=== PATIENT | male | born 1960 | race Caucasian/White ===

== ENCOUNTER 2018-02-13 09:16 | Inpatient (IN) | payer OTHER ==
--- NOTE | 2018-02-13 10:02 | CONSULT ---
Consult Consult Specialty:: General Surgery Referred by:: Tamika Reason for Consultation:: sigmoid colon mass and andominal pain - History of Present Illness Chief Complaint: I have colon mass and it hurts History of Present Illness: 57 yo male presenting to [facility] ER via private auto complaining of occasional lower left abdominal discomfort. Pt underwent an outpatient colonoscopy by Dr. Lundberg last Tuesday (08 Feb 2018), which was reportedly abnormal revealing a mass. Pt denies melena or hematochezia. He has normal bowel habits. his pain is rated 5/10, biopsy return consistent with malignant neoplasm. He is in today for evaluation. - History Source History Provided By: Patient, Medical Record Limitations to Obtaining History: No Limitations - Smoking History Smoking history: Never smoked Home Medications - Allergies Allergies/Adverse Reactions: Allergies Allergy/AdvReac Type Severity Reaction Status Date / Time No Known Allergies Allergy Verified 02/13/18 09:20 - Home Medications Home Medications: Ambulatory Orders Levothyroxine [Synthroid -] 100 mcg PO DAILY 02/13/18 Review of Systems - Review of Systems Constitutional: denies: Chills, Fever Eyes: denies: Blind Spots, Recent Change in Vision HENT: denies: Difficult Swallowing, Throat Pain Neck: denies: Decreased ROM, Tenderness Cardiovascular: denies: Chest Pain, Palpitations Respiratory: denies: Cough, SOB Gastrointestinal: denies: Abdominal Pain, Constipation, Diarrhea Genitourinary: denies: Discharge, Dysuria Breasts: reports: No Symptoms Reported. denies: Pain Musculoskeletal: denies: Back Pain, Crepitus Integumentary: denies: Erythema, Lump, Rash Neurological: denies: Syncope, Tremors Endocrine: denies: Unexplained Weight Gain, Unexplained Weight Loss Hematology/Lymphatic: denies: Easily Bruised, Excessive Bleeding Psychiatric: denies: Anxiety, Depression Physical Exam Vital Signs: Vital Signs Temperature 98.8 F 02/13/18 09:21 Pulse Rate 61 02/13/18 09:21 Respiratory Rate 18 02/13/18 09:21 Blood Pressure 152/83 02/13/18 09:21 O2 Sat by Pulse Oximetry (%) 98 02/13/18 09:21 Vital Signs Period Temp Pulse Resp BP Sys/Cavanaugh Pulse Ox Last 24 Hr 97.9 F-99 F 60-88 16-20 105-135/56-92 95-100 Constitutional: Yes: Well Nourished, No Distress, Calm Eyes: Yes: Conjunctiva Clear, EOM Intact HENT: Yes: Atraumatic, Normocephalic Neck: Yes: Supple, Trachea Midline Cardiovascular: Yes: Regular Rate and Rhythm, S1, S2 Respiratory: Yes: Regular, CTA Bilaterally Gastrointestinal: Yes: Normal Bowel Sounds, Soft, Hyperactive Bowel Sounds (LLQ) , Tenderness (LLQ on deep palpation and there is a mass). No: Tenderness, Epigastrium, Tenderness, Rebound ...Rectal Exam: Yes: Sphincter Tone Normal. No: Hemorrhoids/External, Induration, Inflammation, Mass, Sphincter Tone Poor Renal/: No: CVA Tenderness - Left, CVA Tenderness - Right Musculoskeletal: No: Muscle Pain, Muscle Weakness Extremities: No: Cool, Cyanosis Edema: No Peripheral Pulses WNL: Yes Integumentary: No: Jaundice, Petechiae, Rash Wound/Incision: No: Clean/Dry, Well Approximated Neurological: No: Alert, Oriented Psychiatric: No: Alert, Oriented Imaging - Results Cat Scan: Report Reviewed, Image Reviewed (Sigmoid colon mass) Problem List - Problems (1) Neoplasm of sigmoid colon Assessment/Plan: 57 yo male with newly discovered sigmoid colon mass on recent endoscopy and abdominal pain Bowel Prep NPO after midnight Evaluation by medical oncology f/u by PMD medical cleareance for OR Discussed with patient risks, benefits and alternatives of sigmoid colectomy, including but not limited to bleeding, infection, injury to adjacent structures , leak or injury, intraabdominal abscess, incisional hernia, need for further procedures, ; alternatives include antibiotics, delayed or no surgery - risks of this include failure of nonoperative therapy, perforation, sepsis, recurrence, . Patient desires to proceed with operation - will take to OR for above. Informed consent signed for same. Code(s): D49.0 - NEOPLASM OF UNSPECIFIED BEHAVIOR OF DIGESTIVE SYSTEM (2) Sigmoid thickening Code(s): K63.9 - DISEASE OF INTESTINE, UNSPECIFIED (3) Abdominal pain Code(s): R10.9 - UNSPECIFIED ABDOMINAL PAIN Qualifiers: Abdominal location: left lower quadrant Qualified Code(s): R10.32 - Left lower quadrant pain (4) Abnormal colonoscopy Code(s): R93.3 - ABNORMAL FINDINGS ON DX IMAGING OF PRT DIGESTIVE TRACT
--- NOTE | 2018-02-13 10:47 | PDOC ---
History of Present Illness - General Chief Complaint: Pain Stated Complaint: PCP SENT Time Seen by Provider: 02/13/18 09:26 History Source: Patient Exam Limitations: Language Barrier (Pt is Romanian speaking only. Interpretation provided by RN. ) - History of Present Illness Initial Comments: 57 y/o male presenting to [facility] ER via private auto complaining of occasional lower left abdominal discomfort. Pt underwent an outpatient colonoscopy by Dr. Lundberg last Tuesday (08 Feb 2018), which was reportedly abnormal revealing a mass. Pt denies melena or hematochezia. No colonoscopy records are either provided by the pt or available in [employer]. PCP: Dr. Laquita Thomas GI: Dr. Anthony Lundberg General Surgeon: Dr. Ventura Medical Hx: - Hypothyroidism, managed with Levothyroxine Surgical Hx: - Pt denies past surgical history. Past History - Past Medical History Allergies/Adverse Reactions: Allergies Allergy/AdvReac Type Severity Reaction Status Date / Time No Known Allergies Allergy Verified 02/13/18 09:20 Home Medications: Ambulatory Orders NK [No Known Home Medication] 02/13/18 - Suicide/Smoking/Psychosocial Hx Smoking History: Never smoked Review of Systems - Review of Systems Able to Perform ROS?: Yes Comments:: In addition to that documented in the HPI above, the additional ROS was obtained : Constitutional: Denies fevers or chills Eyes: Denies vision changes ENMT: Denies sore throat CV: Denies chest pain Resp: Denies SOB GI: Denies vomiting or diarrhea *Physical Exam - Vital Signs Last Vital Signs Temp Pulse Resp BP Pulse Ox 98.8 F 61 18 152/83 98 02/13/18 09:21 02/13/18 09:21 02/13/18 09:21 02/13/18 09:21 02/13/18 09:21 - Physical Exam Comments: Constitutional: Well-developed, well-nourished male in no acute distress or obvious discomfort. Found sitting upright in hospital chair. Alert and oriented x4. Answered all questions appropriately and completely. Speech was non-labored , non-pressured. HEENT: Normocephalic. No obvious external signs of trauma. Hearing grossly normal. No nasal discharge. Cardiovascular: Regular rate and regular rhythm. No murmur, rubs, clicks, or gallops. Peripheral pulses: Radial pulses full. Respiratory: Breathing unlabored. Equal chest rise and fall. Clear to auscultation bilaterally. No stridor, no wheezing, no rhonchi. Gastrointestinal: abdomen is soft, non-tender, non-distended. Neuro: Alert and oriented. Moving all four extremities spontaneously. Skin: Warm, dry, and intact. Psych: Affect: appropriate. Mood: normal. ED Treatment Course - LABORATORY CBC & Chemistry Diagram: 02/13/18 10:40 02/13/18 10:40 - RADIOLOGY Radiology Studies Ordered: Category Date Time Status ABDOMEN & PELVIS CT WITH CONTR [CT] Stat CT Scan 02/13/18 10:[address] WITH CONTRAST [CT] Stat CT Scan 02/13/18 10:23 Ordered Medical Decision Making - Medical Decision Making *Reviewed vital signs, nursing notes, and prior visit documentation (if available). In person consultation with Dr. Ventura, who has privately conversed with Dr. Armando. Requested CT of chest, abdomen, and pelvis with IV contrast to evaluate for metastatic disease. Ordered pre-op labs. 12:[address] Perez. Reported HPI and ED course. Agrees to admit pt to med/surg on inpatient status. No additional orders dictated. Pt admitted. CT scans pending. *DC/Admit/Observation/Transfer Diagnosis at time of Disposition: Abnormal colonoscopy Abdominal pain Qualifiers: Abdominal location: left lower quadrant Qualified Code(s): R10.32 - Left lower quadrant pain - Discharge Dispostion Condition at time of disposition: Stable Decision to Admit order: Yes - Referrals - Patient Instructions - Post Discharge Activity
[2018-02-13 10:48] LABS: BASO % 0.5 % (0-2.0); EOS % 0.7 % (0-4.5); HEMATOCRIT 40.6 % (35.4-49); HEMOGLOBIN 12.8 GM/dL (11.7-16.9); LYMPH % 26.4 % (8-40); MCH 25.1 pg (25.7-33.7); MCHC 31.5 g/dl (32.0-35.9); MEAN CELL VOLUME 79.7 fl (80-96); MONO % 6.6 % (3.8-10.2); NEUT % 65.8 % (42.8-82.8); PLATELET COUNT 236 K/MM3 (134-434); RDW 20.7 % (11.9-15.9); WHITE BLOOD COUNT 7.4 K/mm3 (4.0-10.0)
[2018-02-13 11:12] LABS: INR 1.07 (0.83-1.09); PROTHROMBIN TIME (PATIENT) 12.6 SEC (9.7-13.0)
[2018-02-13 11:15] LABS: ACTIVATED PTT 33.9 SECONDS (25.2-36.5)
[2018-02-13 11:37] LABS: ALBUMIN 3.9 g/dl (3.4-5.0); ALK PHOS 146 U/L (45-117); ANION GAP 6 MMOL/L (8-16); BILIRUBIN,TOTAL 0.4 mg/dL (0.2-1); BLOOD UREA NITROGEN 10 mg/dL (7-18); CALCIUM 8.5 mg/dL (8.5-10.1); CHLORIDE 107 mmol/L (98-107); CO2 28 mmol/L (21-32); CREATININE 0.6 mg/dL (0.55-1.3); GLUCOSE,RANDOM 97 mg/dL (74-106); POTASSIUM 5.1 mmol/L (3.5-5.1); SGOT/AST 20 U/L (15-37); SGPT/ALT 37 U/L (13-61); SODIUM 141 mmol/L (136-145); TOT PROT 7.7 g/dl (6.4-8.2)
--- NOTE | 2018-02-13 12:54 | EKG ---
Test Reason : Blood Pressure : / mmHG Vent. Rate : 058 BPM Atrial Rate : 058 BPM P-R Int : 154 ms QRS Dur : 092 ms QT Int : 416 ms P-R-T Axes : 036 037 070 degrees QTc Int : 408 ms SINUS BRADYCARDIA INFERIOR INFARCT , AGE UNDETERMINED ABNORMAL ECG NO PREVIOUS ECGS AVAILABLE Confirmed by JORGE L MATHEWS MD ([id number]) on 02/13/2018 12:53:33 PM Referred By: Confirmed By:JORGE L MATHEWS MD
[2018-02-13] MEDS ORDERED: PEG3350/SOD SULF,BICARB,CL/KCL 4,000 ML SOLN.RECON PO ONE (13:00)
--- NOTE | 2018-02-13 14:09 | PDOC ---
Attending Attestation - Resident Resident Name: Manuel Ocampo - ED Attending Attestation I have performed the following: I have examined & evaluated the patient, The case was reviewed & discussed with the resident, I agree w/resident's findings & plan, Exceptions are as noted - HPI HPI: 02/13/18 14:45 Reviewed Residents HPI - Physicial Exam PE: 02/13/18 14:45 Reviewed Residents PE - Medical Decision Making 02/13/18 14:45 Outpatient colonoscopy with findings concerning for cancer. Patient sent to the emergency department for diffuse abdominal discomfort and concern for metastatic disease CT abdomen pelvis ordered Surgery consulted for likely resection of mass We'll admit to medicine for further management.
[2018-02-13] MEDS ORDERED: ACETAMINOPHEN 325 MG TABLET (FP) PO PRN ×2 (16:07→16:30)
[2018-02-13] MEDS ORDERED: morphine SULFATE 4 MG/ML VIAL IVPUSH PRN (16:07)
[2018-02-13] MEDS ORDERED: DEXTROSE 5%-NORMAL SALINE 1,000 ML IV SCH (16:15)
[2018-02-13] MEDS ORDERED: PANTOPRAZOLE SODIUM 40 MG/100 ML BAG IVPB ONE (17:21)
[2018-02-13] MEDS: PANTOPRAZOLE SODIUM 40 MG VIAL IVPUSH SCH (17:27)
[2018-02-13] MEDS: ERYTHROMYCIN BASE 250 MG TAB PO SCH ×3 (17:28→22:40)
[2018-02-13] MEDS: NEOMYCIN SO4 500 MG TABLET PO SCH ×3 (17:29→22:40)
[2018-02-13 17:42] LABS: ANISOCYTOSIS 2+; MACROCYTOSIS 1+
[2018-02-14] MEDS ORDERED: LACTATED RINGERS SOLUTION 1,000 ML/1,000 ML INFUS.BAG IV SCH (00:01)
[2018-02-14 07:27] LABS: HEMATOCRIT 38.7 % (35.4-49); HEMOGLOBIN 12.2 GM/dL (11.7-16.9); MCH 25.1 pg (25.7-33.7); MCHC 31.5 g/dl (32.0-35.9); MEAN CELL VOLUME 79.6 fl (80-96); MEAN PLT VOLUME 6.8 fl (7.5-11.1); PLATELET COUNT 222 K/MM3 (134-434); RBC 4.86 M/mm3 (4.00-5.60); RDW 20.1 % (11.9-15.9); WHITE BLOOD COUNT 4.3 K/mm3 (4.0-10.0)
[2018-02-14 08:19] LABS: ALBUMIN 3.4 g/dl (3.4-5.0); ALK PHOS 115 U/L (45-117); ANION GAP 6 MMOL/L (8-16); BILIRUBIN,TOTAL 0.5 mg/dL (0.2-1); BLOOD UREA NITROGEN 10 mg/dL (7-18); CALCIUM 8.7 mg/dL (8.5-10.1); CHLORIDE 106 mmol/L (98-107); CO2 29 mmol/L (21-32); CREATININE 0.7 mg/dL (0.55-1.3); GLUCOSE,RANDOM 89 mg/dL (74-106); POTASSIUM 4.5 mmol/L (3.5-5.1); SGOT/AST 24 U/L (15-37); SGPT/ALT 32 U/L (13-61); SODIUM 140 mmol/L (136-145)
[2018-02-14] MEDS: PANTOPRAZOLE SODIUM 40 MG VIAL IVPUSH SCH (09:31)
--- NOTE | 2018-02-14 10:33 | CON.CARD ---
Consult Consult Specialty:: Cardiology Referred by:: Dr. Perez Reason for Consultation:: Preop cardiac evaluation - History of Present Illness Chief Complaint: admitted with a colon mass History of Present Illness: 57 year old man with pmh hypothyroid recently dx colon mass admitted for resection. pt seen and examined today in nad. 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 denies any chest pain or sob either at rest or with exertion. no palpitations, pnd, orthopnea, LE edema. no lightheadedness, dizziness, syncope or near syncope. - History Source History Provided By: Patient Limitations to Obtaining History: Language Barrier - Past Medical History Heme/Onc: Yes: Other (colon mass) Endocrine: Yes: Hypothyroidism - Alcohol/Substance Use Hx Alcohol Use: No - Smoking History Smoking history: Never smoked Have you smoked in the past 12 months: No - Social History ADL: Independent History of Recent Travel: No Home Medications - Allergies Allergies/Adverse Reactions: Allergies Allergy/AdvReac Type Severity Reaction Status Date / Time No Known Allergies Allergy Verified 02/13/18 09:20 - Home Medications Home Medications: Ambulatory Orders Levothyroxine [Synthroid -] 100 mcg PO DAILY 02/13/18 Family Disease History - Family Disease History Family Disease History: Heart Disease: Father (mi age 70) Review of Systems - Review of Systems Constitutional: denies: No Symptoms, Chills, Diaphoresis, Fever, Lethargy, Loss of Appetite, Malaise, Night Sweats, Unintentional Wgt. Loss, Weakness, Other Eyes: denies: No Symptoms, Blind Spots, Blurred Vision, Double Vision, Eye Pain , Floaters, Photophobia, Recent Change in Vision, Other HENT: denies: No Symptoms, Difficult Swallowing, Ear Discharge, Ear Pain, Epistaxis, Gingival Bleeding, Hearing Loss, Mouth Swelling, Nasal Congestion, Ocular Prosthesis, Throat Pain, Toothache, Ringing in Ears, Other Neck: denies: No Symptoms, Decreased ROM, Lumps, Pain on Movement, Stiffness, Swollen Glands, Tenderness, Other Cardiovascular: denies: No Symptoms, Chest Pain, Edema, Palpitations, Shortness of Breath, Other Respiratory: denies: No Symptoms, Cough, Exercise Intolerance, Hemoptysis, Orthopnea, PND, Snoring, SOB, SOB on Exertion, Wheezing, Other Gastrointestinal: denies: No Symptoms, Abdominal Pain, Bloating, Constipation, Diarrhea, Dysphagia, Indigestion, Melena, Nausea, Rectal Bleeding, Vomiting, Vomiting Blood, Other Genitourinary: denies: No Symptoms, Burning, Discharge, Dysuria, Flank Pain, Frequency, Hematuria, Incontinence, Lesions, Menses, Pain, Testicular Mass, Testicular Pain, Testicular Swelling, Urgency, Vaginal Bleeding, Other Breasts: denies: No Symptoms Reported, See HPI, Breast Implants, Discharge from Nipple, Lumps, Pain, Skin Changes, Other Musculoskeletal: denies: No Symptoms, Back Pain, Crepitus, Decreased ROM, Extremity Pain, Joint Pain, Joint Swelling, Muscle Pain, Muscle Cramps, Muscle Weakness, Other Integumentary: denies: No Symptoms, Blister, Bruising, Change in Color, Eczema, Erythema, Incision, Lesions, Lump, Pallor, Pruritis, Rash, Wound, Other Neurological: denies: No Symptoms, Change in LOC, Change in Speech, Confusion, Dizziness, Headache, Incoordination, Numbness, Parasthesia, Pre-Existing Deficit , Seizure, Syncope, Tremors, Unsteady Gait, Weakness, Other Endocrine: denies: No Symptoms, Excessive Sweating, Flushing, Increased Hunger, Increased Thirst, Intolerance to Cold, Intolerance to Heat, Unexplained Weight Gain, Unexplained Weight Loss, Other Hematology/Lymphatic: denies: No Symptoms, Easily Bruised, Excessive Bleeding, Swollen Glands, Other Psychiatric: denies: No Symptoms, Altered Sleep Pattern, Anxiety, Depression, Hallucinations, Panic, Paranoia, Suicidal, Other - Risk Factors Known Risk Factors: No: Age, Diabetes Mellitus, Family History, Gender, Hypercholesterolemia, Hypertension, Physical Inactivity, Prior MA /Emb Stroke, Race, Smoking, Other Vital Signs: Vital Signs Temperature 98.5 F 02/14/18 08:35 Pulse Rate 64 02/14/18 08:35 Respiratory Rate 20 02/14/18 08:35 Blood Pressure 139/73 02/14/18 08:35 O2 Sat by Pulse Oximetry (%) 100 02/13/18 20:08 Constitutional: Yes: Well Nourished, No Distress, Calm Eyes: Yes: WNL, Conjunctiva Clear, EOM Intact HENT: Yes: WNL, Atraumatic, Normocephalic Neck: Yes: WNL, Supple, Trachea Midline Respiratory: Yes: WNL, Regular, CTA Bilaterally. No: Rales, Rhonchi, Wheezes Gastrointestinal: Yes: WNL, Normal Bowel Sounds, Soft. No: Distention, Tenderness Renal/: Yes: WNL Cardiovascular: Yes: WNL, Regular Rate and Rhythm. No: Bradycardia, Tachycardia , Pulse Irregular, Gallop, Rub, Varicosities JVD: No Carotid Bruit: No PMI: Non-Displaced Heart Sounds: Yes: S1, S2. No: Split S2, S3, S4, Clicks, Gallop, Rub, Bruit Murmur: No: Systolic Murmur, Diastolic Murmur Musculoskeletal: Yes: WNL Extremities: Yes: WNL Edema: No Peripheral Pulses WNL: Yes Peripheral Pulses: 2+ Left Doralis Pedis, 2+ Right Dorsalis Pedis Integumentary: Yes: WNL Neurological: Yes: Alert, Oriented, Cran Nerves II-XII Intact ...Motor Strength: WNL Psychiatric: Yes: Alert, Oriented - Other Data Labs, Other Data: CBC, BMP 02/14/18 07:10 02/14/18 07:10 INR, PTT INR 1.07 (0.83-1.09) 02/13/18 10:40 ekg-sb 58bpm, possible inferior infarct, no acute st changes Imaging - Results Chest X-ray: Report Reviewed, Image Reviewed EKG: Report Reviewed, Image Reviewed Other: Report Reviewed, Image Reviewed Assessment/Plan 57 year old man with pmh hypothyroid recently dx colon mass admitted for resection. pt seen and examined today in nad. 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 denies any chest pain or sob either at rest or with exertion. preop cardiac exam -pt is a low risk for planned procedure -there is no cardiac contraindications -would recc to proceed without delay for additional cardiac work up. Please call with any additional questions.
--- NOTE | 2018-02-14 11:43 | HP ---
Admitting History and Physical - Admission Chief Complaint: sent in for abnormal colonscopy History of Present Illness: 57 y/o male presenting to [facility] ER via private auto complaining of occasional lower left abdominal discomfort. Pt underwent an outpatient colonoscopy by Dr. Lundberg last Tuesday (08 Feb 2018), which was reportedly abnormal revealing a mass. Pt denies melena or hematochezia History Source: Patient, Medical Record - Past Medical History Heme/Onc: Yes: Other (colon mass) Endocrine: Yes: Hypothyroidism - Smoking History Smoking history: Never smoked Have you smoked in the past 12 months: No - Alcohol/Substance Use Hx Alcohol Use: No - Social History ADL: Independent History of Recent Travel: No Home Medications - Allergies Allergies/Adverse Reactions: Allergies Allergy/AdvReac Type Severity Reaction Status Date / Time No Known Allergies Allergy Verified 02/13/18 09:20 - Home Medications Home Medications: Ambulatory Orders Levothyroxine [Synthroid -] 100 mcg PO DAILY 02/13/18 Family Disease History - Family Disease History Family Disease History: Heart Disease: Father (mi age 70) Review of Systems - Review of Systems Gastrointestinal: reports: Abdominal Pain Physical Examination Vital Signs: Vital Signs Temperature 98.5 F 02/14/18 08:35 Pulse Rate 64 02/14/18 08:35 Respiratory Rate 20 02/14/18 08:35 Blood Pressure 139/73 02/14/18 08:35 O2 Sat by Pulse Oximetry (%) 100 02/13/18 20:08 Constitutional: Yes: Calm Neck: Yes: Trachea Midline Cardiovascular: Yes: Regular Rate and Rhythm, S1, S2 Respiratory: Yes: CTA Bilaterally Gastrointestinal: Yes: Normal Bowel Sounds, Soft Edema: No Neurological: Yes: Alert, Oriented Labs: CBC, BMP 02/14/18 07:10 02/14/18 07:10 Imaging - Results Cat Scan: Report Reviewed (significant thickening of proximal sigmoid colon) Problem List - Problems (1) Sigmoid thickening Assessment/Plan: NPO ivf admited for surgery of abdominal mass- surgery on board cardiology cleared patient for surgery dvt ppx heparin sub q bid Code(s): K63.9 - DISEASE OF INTESTINE, UNSPECIFIED (2) Hypothyroid Assessment/Plan: iv synthroid given patient is NPO po synthroid dose is 100mcg check tsh Code(s): E03.9 - HYPOTHYROIDISM, UNSPECIFIED
[2018-02-14] MEDS ORDERED: MIDAZOLAM HCL 2 MG/2 ML SINGLE DOSE VIAL ONE ×2 (16:13)
[2018-02-14] MEDS ORDERED: fentaNYL CITRATE 250 MCG/5 ML VIAL ONE ×2 (16:13→17:44)
[2018-02-14] MEDS ORDERED: ROCURONIUM BROMIDE 50 MG/5 ML VIAL ONE ×2 (16:13→16:55)
[2018-02-14] MEDS ORDERED: PROPOFOL 20 ML ONE (16:13)
[2018-02-14] MEDS ORDERED: LIDOCAINE HCL/PF 2% SDV 5ML VIAL ONE (16:27)
[2018-02-14] MEDS ORDERED: DEXAMETHASONE SOD PHOSPHATE 4 MG/1 ML VIAL ONE (16:35)
[2018-02-14] MEDS ORDERED: CEFOXITIN SODIUM 2 GM IVPB ONE (16:50)
[2018-02-14] MEDS ORDERED: cefOXitin SODIUM 2 GM VIAL (RESTRICTED TO ID) IVPB ONE (16:54)
[2018-02-14] MEDS ORDERED: NEOSTIGMINE METHYLSULFATE 0.5 MG/ML - 10 ML MDV ONE (19:12)
[2018-02-14] MEDS ORDERED: GLYCOPYRROLATE 0.2 MG/1 ML VIAL ONE (19:12)
[2018-02-14] MEDS ORDERED: ONDANSETRON 4 MG/2 ML VIAL IVPUSH PRN (19:54)
[2018-02-14] MEDS ORDERED: PROMETHAZINE HCL 25 MG/1 ML VIAL IVPUSH PRN (19:54)
[2018-02-14] MEDS ORDERED: oxyCODONE HCL 5 MG TABLET PO PRN (19:54)
[2018-02-14] MEDS ORDERED: HYDROmorphone *PCA* 10MG/50ML DISP.SYRIN PCA ONE (19:56)
--- NOTE | 2018-02-14 19:56 | OP ---
Operative Note - Note: Operative Date: 02/14/18 Pre-Operative Diagnosis: abdominal pain and sigmoid colon mass Operation: sigmoid colectomy Findings: sigmoid colon with mass, tatooed stitch ashraf proximal, side to side stapled anastomosis Post-Operative Diagnosis: Same as Pre-op Surgeon: Horacio Ventura Odd Jobs Day Worker: Cheo Singh Anesthesiologist/SCOURING TRAIN OPERATOR: Madonna Bond Anesthesia: General Specimens Removed: paortion of sigmoid Estimated Blood Loss (mls): 20 Fluid Volume Replaced (mls): 2,200 (cyrstalloid) Operative Report Dictated: Yes
[2018-02-14] MEDS ORDERED: HYDROmorphone *PCA* 10MG/50ML DISP.SYRIN PCA SCH (20:00)
[2018-02-14] MEDS ORDERED: ONDANSETRON 4 MG/2 ML VIAL IVPB PRN (20:01)
[2018-02-14] MEDS ORDERED: DEXTROSE 5%-NORMAL SALINE 1,000 ML IV SCH (20:21)
[2018-02-14] MEDS ORDERED: ACETAMINOPHEN 325 MG TABLET (FP) PO PRN (20:21)
[2018-02-14] MEDS: LACTATED RINGERS SOLUTION 1,000 ML/1,000 ML INFUS.BAG IV SCH (22:10)
[2018-02-14] MEDS: HYDROmorphone *PCA* 10MG/50ML DISP.SYRIN PCA SCH (23:12)
[2018-02-15] MEDS: LACTATED RINGERS SOLUTION 1,000 ML/1,000 ML INFUS.BAG IV SCH ×2 (06:01→20:30)
[2018-02-15] MEDS: LEVOTHYROXINE SODIUM 100 MCG VIAL IVPUSH SCH (06:02)
[2018-02-15] MEDS ORDERED: LEVOTHYROXINE SODIUM 100 MCG VIAL IVPUSH SCH (07:00)
[2018-02-15 08:11] LABS: BASO % 0.2 % (0-2.0); HEMATOCRIT 36.3 % (35.4-49); HEMOGLOBIN 11.6 GM/dL (11.7-16.9); LYMPH % 12.2 % (8-40); MCH 25.3 pg (25.7-33.7); MEAN CELL VOLUME 79.1 fl (80-96); MEAN PLT VOLUME 7.3 fl (7.5-11.1); MONO % 8.8 % (3.8-10.2); NEUT % 78.8 % (42.8-82.8); PLATELET COUNT 213 K/MM3 (134-434); RBC 4.59 M/mm3 (4.00-5.60); WHITE BLOOD COUNT 6.4 K/mm3 (4.0-10.0)
[2018-02-15 08:55] LABS: ALK PHOS 94 U/L (45-117); ANION GAP 8 MMOL/L (8-16); BILIRUBIN,TOTAL 0.6 mg/dL (0.2-1); BLOOD UREA NITROGEN 13 mg/dL (7-18); CALCIUM 7.8 mg/dL (8.5-10.1); CHLORIDE 104 mmol/L (98-107); CO2 27 mmol/L (21-32); CREATININE 0.7 mg/dL (0.55-1.3); GLUCOSE,RANDOM 118 mg/dL (74-106); POTASSIUM 4.7 mmol/L (3.5-5.1); SGOT/AST 20 U/L (15-37); SGPT/ALT 30 U/L (13-61); SODIUM 139 mmol/L (136-145); TOT PROT 6.2 g/dl (6.4-8.2)
--- NOTE | 2018-02-15 09:02 | PN ---
Progress Note, Physician - Current Medication List Current Medications: Active Medications Acetaminophen (Tylenol -) 650 mg PO Q6H PRN PRN Reason: FEVER Hydromorphone HCl (Dilaudid Sales Manager [place] -) 10 mg INJECTION MOLDING OPERATOR INJECTION MOLDING OPERATOR [facility]; Protocol Stop: 02/17/18 19:55 Last Admin: 02/14/18 23:12 Dose: Not Given Lactated Ringer's (Lactated Ringers Solution) 1,000 ml in 1,000 mls @ 100 mls/ hr IV ASDIR JERED Last Admin: 02/15/18 06:01 Dose: 100 mls/hr Levothyroxine Sodium (Synthroid Injection -) 75 mcg IVPUSH AM JERED Last Admin: 02/15/18 06:02 Dose: 75 mcg Ondansetron HCl (Zofran Injection) 4 mg IVPB Q8H PRN PRN Reason: NAUSEA Pantoprazole Sodium (Protonix Iv) [address] [facility] - Objective Vital Signs: Vital Signs Temperature 97.9 F 02/15/18 05:56 Pulse Rate 62 02/15/18 05:56 Respiratory Rate 20 02/15/18 05:56 Blood Pressure 123/66 02/15/18 05:56 O2 Sat by Pulse Oximetry (%) 96 02/14/18 22:00 Cardiovascular: Yes: Regular Rate and Rhythm Respiratory: Yes: Regular, CTA Bilaterally Gastrointestinal: Yes: Distention, Hypoactive Bowel Sounds Labs: CBC, BMP 02/15/18 06:30 INR, PTT INR 1.07 (0.83-1.09) 02/13/18 10:40 Problem List - Problems (1) Neoplasm of sigmoid colon Assessment/Plan: Pre-Operative Diagnosis: abdominal pain and sigmoid colon mass Operation: sigmoid colectomy Findings: sigmoid colon with mass, tatooed stitch ashraf proximal, side to side stapled anastomosis Post-Operative Diagnosis: Same as Pre-op Surgeon: Horacio Ventura diet and further plan per surgery Code(s): D49.0 - NEOPLASM OF UNSPECIFIED BEHAVIOR OF DIGESTIVE SYSTEM (2) Hypothyroid Assessment/Plan: -same iv synthroid while npo Code(s): E03.9 - HYPOTHYROIDISM, UNSPECIFIED
[2018-02-15] MEDS: PANTOPRAZOLE SODIUM 40 MG VIAL IVPUSH SCH (09:11)
[2018-02-15] MEDS: HYDROmorphone *PCA* 10MG/50ML DISP.SYRIN PCA SCH (11:00)
--- NOTE | 2018-02-15 11:37 | PN ---
Progress Note, Physician Chief Complaint: abdominal pain and colon mass History of Present Illness: 57 yo male presenting to [facility] ER via private auto complaining of occasional lower left abdominal discomfort. stable post operatively. - Current Medication List Current Medications: Active Medications Acetaminophen (Tylenol -) 650 mg PO Q6H PRN PRN Reason: FEVER Hydromorphone HCl (Dilaudid [employer] Pus[employer] -) 10 mg TERMINATION CLERK TERMINATION CLERK [facility]; Protocol Stop: 02/17/18 19:55 Last Admin: 02/15/18 11:00 Dose: 10 mg Lactated Ringer's (Lactated Ringers Solution) 1,000 ml in 1,000 mls @ 100 mls/ hr IV ASDIR [facility] Last Admin: 02/15/18 06:01 Dose: 100 mls/hr Levothyroxine Sodium (Synthroid Injection -) 75 mcg IVPUSH AM [facility] Last Admin: 02/15/18 06:02 Dose: 75 mcg Ondansetron HCl (Zofran Injection) 4 mg IVPB Q8H PRN PRN Reason: NAUSEA Pantoprazole Sodium (Protonix Iv) 40 mg IVPUSH DAILY [facility] Last Admin: 02/15/18 09:11 Dose: 40 mg - Objective Vital Signs: Vital Signs Temperature 97.9 F 02/15/18 05:56 Pulse Rate 64 02/15/18 11:00 Respiratory Rate 18 02/15/18 11:00 Blood Pressure 105/56 L 02/15/18 11:00 O2 Sat by Pulse Oximetry (%) 95 02/15/18 10:00 Vital Signs Period Temp Pulse Resp BP Sys/Cavanaugh Pulse Ox Last 24 Hr 97.9 F-99 F 58-88 16-20 105-135/56-92 95-100 Intake & Output 02/14/18 02/15/18 02/15/18 23:59 07:59 15:59 Intake Total 2500 900 Output Total 130 Balance 2370 900 Intake: IV 2500 900 LACTATED RINGERS SOLUTION 900 1,000 ml In 1,000 ml @ 100 mls/hr IV ASDIR JERED Rx#:[id number] Output: Urine 110 Estimated Blood Loss 20 Other: Voiding Method Toilet Toilet # Unmeasured Voids Void 0 Bowel Movement No Constitutional: Yes: No Distress, Calm Eyes: Yes: Conjunctiva Clear, EOM Intact HENT: Yes: Atraumatic, Normocephalic Neck: Yes: Supple, Trachea Midline Cardiovascular: Yes: Regular Rate and Rhythm, S1, S2 Respiratory: Yes: Regular, CTA Bilaterally Gastrointestinal: Yes: Normal Bowel Sounds, Soft, Tenderness. No: Tenderness, Epigastrium, Tenderness, Rebound ...Rectal Exam: Yes: Deferred Genitourinary: No: CVA Tenderness - Left, CVA Tenderness - Right Musculoskeletal: No: Muscle Pain, Muscle Weakness Extremities: No: Cool, Cyanosis Edema: No Peripheral Pulses WNL: Yes Integumentary: No: Laceration Wound/Incision: Yes: Clean/Dry, Well Approximated, Dressing Dry and Intact Neurological: Yes: Alert, Oriented Psychiatric: Yes: Alert, Oriented Labs: CBC, BMP 02/15/18 06:30 02/15/18 06:30 INR, PTT INR 1.07 (0.83-1.09) 02/13/18 10:40 Problem List - Problems (1) Neoplasm of sigmoid colon Assessment/Plan: POD#2 s/p sigmoid colectomy and primary f/u pathology Medical oncology workup Clear liquid diet OOB and ambulate encourage IS physical therapy evaluation will follow Code(s): D49.0 - NEOPLASM OF UNSPECIFIED BEHAVIOR OF DIGESTIVE SYSTEM (2) Sigmoid thickening Code(s): K63.9 - DISEASE OF INTESTINE, UNSPECIFIED (3) Abdominal pain Code(s): R10.9 - UNSPECIFIED ABDOMINAL PAIN Qualifiers: Abdominal location: left lower quadrant Qualified Code(s): R10.32 - Left lower quadrant pain (4) Abnormal colonoscopy Code(s): R93.3 - ABNORMAL FINDINGS ON DX IMAGING OF PRT DIGESTIVE TRACT
--- NOTE | 2018-02-15 16:11 | PN ---
Progress Note (short form) - Note Progress Note: Post op day#1.S/P Colon resection under GA uneventful.Patient stable and c/o pain score of 2-3/10.So wll DC Dilaudid LABORER CARPENTRY DOCK and put patient on PRN pain medication.No any anesthesia related problem.Patient DC from the anesthesia care.
[2018-02-16] MEDS: LACTATED RINGERS SOLUTION 1,000 ML/1,000 ML INFUS.BAG IV SCH ×3 (03:20→20:30)
[2018-02-16] MEDS ORDERED: PT OWN MED DRAWER 7, Y5N ONE (05:31)
[2018-02-16] MEDS: LEVOTHYROXINE SODIUM 100 MCG VIAL IVPUSH SCH (06:04)
[2018-02-16] MEDS: PANTOPRAZOLE SODIUM 40 MG VIAL IVPUSH SCH (09:41)
--- NOTE | 2018-02-16 10:54 | PN ---
Progress Note, Physician Chief Complaint: S/P COLON RESECTION POD #2 AWAKE ALERT - Current Medication List Current Medications: Active Medications Acetaminophen (Tylenol -) 650 mg PO Q6H PRN PRN Reason: FEVER Hydromorphone HCl (Dilaudid Vial -) 2 mg IVPB Q4H PRN PRN Reason: PAIN LEVEL 6-10 Lactated Ringer's (Lactated Ringers Solution) 1,000 ml in 1,000 mls @ 100 mls/ hr IV ASDIR [facility] Last Admin: 02/16/18 03:20 Dose: 100 mls/hr Levothyroxine Sodium (Synthroid Injection -) 75 mcg IVPUSH AM [facility] Last Admin: 02/16/18 06:04 Dose: 75 mcg Ondansetron HCl (Zofran Injection) 4 mg IVPB Q8H PRN PRN Reason: NAUSEA Pantoprazole Sodium (Protonix Iv) 40 mg IVPUSH DAILY [facility] Last Admin: 02/16/18 09:41 Dose: 40 mg - Objective Vital Signs: Vital Signs Temperature 99.1 F 02/16/18 05:13 Pulse Rate 66 02/16/18 05:13 Respiratory Rate 20 02/16/18 05:13 Blood Pressure 140/78 02/16/18 05:13 O2 Sat by Pulse Oximetry (%) 94 L 02/16/18 10:00 Constitutional: Yes: Mild Distress Eyes: Yes: WNL HENT: Yes: WNL Neck: Yes: WNL Cardiovascular: Yes: WNL Respiratory: Yes: WNL Gastrointestinal: Yes: Other (DISTENDED COLOSOTMY) Genitourinary: Yes: WNL Extremities: Yes: WNL Edema: No Peripheral Pulses WNL: Yes Integumentary: Yes: WNL Wound/Incision: Yes: Other Neurological: Yes: WNL ...Motor Strength: WNL Psychiatric: Yes: WNL Labs: CBC, BMP 02/15/18 06:30 02/15/18 06:30 INR, PTT INR 1.07 (0.83-1.09) 02/13/18 10:40 Problem List - Problems (1) Abdominal pain Code(s): R10.9 - UNSPECIFIED ABDOMINAL PAIN Qualifiers: Abdominal location: left lower quadrant Qualified Code(s): R10.32 - Left lower quadrant pain (2) Abnormal colonoscopy Code(s): R93.3 - ABNORMAL FINDINGS ON DX IMAGING OF PRT DIGESTIVE TRACT (3) Neoplasm of sigmoid colon Code(s): D49.0 - NEOPLASM OF UNSPECIFIED BEHAVIOR OF DIGESTIVE SYSTEM Assessment/Plan SURGERY EVAL AND F/U APPRECIATED PAIN CONTROL DIET STARTED OOB TO CHAIR DVT PROPHYLAXIS
--- NOTE | 2018-02-16 15:46 | PN ---
Progress Note, Physician Chief Complaint: abdominal pain and colon mass History of Present Illness: 57 yo male presenting to [facility] ER via private auto complaining of occasional lower left abdominal discomfort. stable post operatively. - Current Medication List Current Medications: Active Medications Acetaminophen (Tylenol -) 650 mg PO Q6H PRN PRN Reason: FEVER Hydromorphone HCl (Dilaudid Vial -) 2 mg IVPB Q4H PRN PRN Reason: PAIN LEVEL 6-10 Lactated Ringer's (Lactated Ringers Solution) 1,000 ml in 1,000 mls @ 100 mls/ hr IV ASDIR [facility] Last Admin: 02/16/18 14:51 Dose: 100 mls/hr Levothyroxine Sodium (Synthroid Injection -) 75 mcg IVPUSH AM [facility] Last Admin: 02/16/18 06:04 Dose: 75 mcg Ondansetron HCl (Zofran Injection) 4 mg IVPB Q8H PRN PRN Reason: NAUSEA Pantoprazole Sodium (Protonix Iv) 40 mg IVPUSH DAILY [facility] Last Admin: 02/16/18 09:41 Dose: 40 mg - Objective Vital Signs: Vital Signs Temperature 99.0 F 02/16/18 10:00 Pulse Rate 71 02/16/18 10:00 Respiratory Rate 20 02/16/18 10:00 Blood Pressure 127/79 02/16/18 10:00 O2 Sat by Pulse Oximetry (%) 94 L 02/16/18 10:00 Constitutional: Yes: Well Nourished, No Distress, Calm Eyes: Yes: Conjunctiva Clear, EOM Intact HENT: Yes: Atraumatic, Normocephalic Neck: Yes: Supple, Trachea Midline Cardiovascular: Yes: Regular Rate and Rhythm, S1, S2 Respiratory: Yes: Regular, CTA Bilaterally Gastrointestinal: Yes: Normal Bowel Sounds, Soft, Abdomen, Obese, Tenderness ( incisonal). No: Tenderness, Epigastrium, Tenderness, Rebound Genitourinary: No: CVA Tenderness - Left, CVA Tenderness - Right Musculoskeletal: No: Muscle Pain, Muscle Weakness Extremities: No: Cool, Cyanosis Edema: No Peripheral Pulses WNL: Yes Peripheral Pulses: Left Radial: 2+, Right Radial: 2+, Left Doralis Pedis: 2+, Right Dorsalis Pedis: 2+ Integumentary: No: Jaundice, Rash Wound/Incision: Yes: Clean/Dry, Well Approximated, Oj Intact, Dressing Removed Neurological: Yes: Alert, Oriented Psychiatric: Yes: Alert, Oriented Labs: CBC, BMP 02/15/18 06:30 02/15/18 06:30 INR, PTT INR 1.07 (0.83-1.09) 02/13/18 10:40 Problem List - Problems (1) Neoplasm of sigmoid colon Assessment/Plan: POD#2 s/p sigmoid colectomy and primary Medical oncology workup Clear liquid diet OOB and ambulate encourage IS physical therapy evaluation will follow Code(s): D49.0 - NEOPLASM OF UNSPECIFIED BEHAVIOR OF DIGESTIVE SYSTEM (2) Sigmoid thickening Code(s): K63.9 - DISEASE OF INTESTINE, UNSPECIFIED (3) Abdominal pain Code(s): R10.9 - UNSPECIFIED ABDOMINAL PAIN Qualifiers: Abdominal location: left lower quadrant Qualified Code(s): R10.32 - Left lower quadrant pain (4) Abnormal colonoscopy Code(s): R93.3 - ABNORMAL FINDINGS ON DX IMAGING OF PRT DIGESTIVE TRACT
--- NOTE | 2018-02-16 20:01 | PATH ---
Surgical Pathology Report Patient Name: AGUSTO HUSSEIN [facility]. Rec. 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 Specimen(s) Received COLON CA,TOTAL RESECTION Clinical History Sigmoid abnormal colonoscopy, mass and abdominal pain Final Diagnosis PORTION OF SIGMOID COLON, SIGMOIDECTOMY: INVASIVE ADENOCARCINOMA, MODERATELY DIFFERENTIATED, MEASURING 4.3 CM IN LARGEST DIMENSION. TUMOR INVADES INTO MUSCULARIS PROPRIA. MARGINS ARE UNINVOLVED BY CARCINOMA. LYMPHOVASCULAR INVASION NOT IDENTIFIED. TUMOR DEPOSITS NOT IDENTIFIED. FIFTEEN LYMPH NODES, NEGATIVE FOR CARCINOMA (0/15). PATHOLOGIC STAGE (pTNM): pT2 pN0 ALSO SEE COLORECTAL CARCINOMA CASE SUMMARY BELOW. Immunohistochemistry (IHC) Testing for Mismatch Repair (MMR) Proteins result to follow as an addendum. Comments Colorectal Carcinoma :Surgical Pathology Cancer Case Summary (Based on AJCC TNM 8 th edition) Procedure _x_ Sigmoidectomy Tumor Site _x_ Sigmoid colon Tumor Size Greatest dimension (centimeters): 4.3 cm Macroscopic Tumor Perforation _x_ Not identified Histologic Type _x_ Adenocarcinoma Histologic Grade _x_ G2: Moderately differentiated Tumor Extension _x_ Tumor invades muscularis propria Margins _x_ All margins are uninvolved by invasive carcinoma, high-grade dysplasia, intramucosal adenocarcinoma, and adenoma Margins examined: proximal, distal, and radial margins Treatment Effect _x_ No known presurgical therapy Lymphovascular Invasion _x_ Not identified Perineural Invasion _x_ Not identified Tumor Deposits _x_ Not identified Regional Lymph Nodes Lymph Node Examination Number of Lymph Nodes Involved: 0 Number of Lymph Nodes Examined: 15 Pathologic Stage Classification (pTNM, AJCC 8th Edition) Primary Tumor (pT) _x_ pT2: Tumor invades the muscularis propria Regional Lymph Nodes (pN) _x_ pN0: No regional lymph node metastasis Electronically Signed Theo Arias M.D. Addendum Reported: 02/22/2018 Addendum Diagnosis Colorectal biomarkers: Immunohistochemistry (IHC) Testing for Mismatch Repair (MMR) Proteins MLH1 Intactnuclear expression MSH2 Intact nuclear expression MSH6 Intact nuclear expression PMS2 Intact nuclear expression Background nonneoplastic tissue/internal control with intact nuclear expression IHC Interpretation _x_ No loss of nuclear expression of MMR proteins: low probability of microsatellite instability-high(MSI-H)# Theo Arias M.D. Gross Description Received in formalin labeled "portion of sigmoid colon," is a 10 cm in length portion of colon with 2 stapled mucosal margins and abundant attached pericolonic adipose tissue. There is a suture marking the proximal end of the specimen, per the surgeon. The serosa is daly-albert with a focal tattoo. The mucosa displays a 4.3 x 3.3 cm polypoid mass. The mass focally extends into the muscularis. No definite invasion into the serosa is identified. The mass is 2 cm from the distal mucosal margin and 4 cm from the mesenteric margin of resection. The remaining mucosa is daly with normal folds. Sectioning of the pericolonic adipose tissue reveals multiple daly lymph nodes measuring up to 1.3 cm in greatest dimension. Credit Portfolio Manager are submitted in 19 cassettes as follows: 1-proximal mucosal margin; 2-distal mucosal margin; 3-shave of mesenteric margin; 4-7-mass; 8-mucosa distal to mass; 9-mucosa proximal to mass; 10-13-one bisected lymph node each; 14-19-two whole possible lymph nodes each. 02/15/2018 saudi02/15/2018
[2018-02-16] MEDS: ACETAMINOPHEN 325 MG TABLET (FP) PO PRN (23:11)
[2018-02-17] MEDS: HYDROmorphone HCl 2 MG/ML VIAL IVPB PRN ×2 (01:32→09:41)
[2018-02-17] MEDS: LACTATED RINGERS SOLUTION 1,000 ML/1,000 ML INFUS.BAG IV SCH (01:32)
[2018-02-17] MEDS ORDERED: PT OWN MED DRAWER 7, Y5N ONE (05:31)
[2018-02-17] MEDS: LEVOTHYROXINE SODIUM 100 MCG VIAL IVPUSH SCH (06:32)
[2018-02-17 07:15] LABS: MCH 25.2 pg (25.7-33.7); MCHC 31.7 g/dl (32.0-35.9); MEAN CELL VOLUME 79.5 fl (80-96); MEAN PLT VOLUME 6.9 fl (7.5-11.1); PLATELET COUNT 211 K/MM3 (134-434); RBC 4.78 M/mm3 (4.00-5.60); RDW 20.3 % (11.9-15.9); WHITE BLOOD COUNT 7.8 K/mm3 (4.0-10.0)
[2018-02-17 07:38] LABS: ALBUMIN 3.1 g/dl (3.4-5.0); ALK PHOS 89 U/L (45-117); ANION GAP 8 MMOL/L (8-16); BILIRUBIN,TOTAL 0.7 mg/dL (0.2-1); BLOOD UREA NITROGEN 6 mg/dL (7-18); CALCIUM 8.2 mg/dL (8.5-10.1); CHLORIDE 102 mmol/L (98-107); CO2 28 mmol/L (21-32); CREATININE 0.7 mg/dL (0.55-1.3); GLUCOSE,RANDOM 102 mg/dL (74-106); MAGNESIUM 2.2 mg/dL (1.8-2.4); PHOSPHOROUS 3.8 mg/dL (2.5-4.9); POTASSIUM 4.3 mmol/L (3.5-5.1); SGOT/AST 20 U/L (15-37); SGPT/ALT 29 U/L (13-61); SODIUM 139 mmol/L (136-145); TOT PROT 6.5 g/dl (6.4-8.2)
[2018-02-17] MEDS: PANTOPRAZOLE SODIUM 40 MG VIAL IVPUSH SCH (09:41)
--- NOTE | 2018-02-17 10:49 | PN ---
Progress Note, Physician Chief Complaint: asleep comfortable - Current Medication List Current Medications: Active Medications Acetaminophen (Tylenol -) 650 mg PO Q6H PRN PRN Reason: FEVER Last Admin: 02/16/18 23:11 Dose: 650 mg Hydromorphone HCl (Dilaudid Vial -) 2 mg IVPB Q4H PRN PRN Reason: PAIN LEVEL 6-10 Last Admin: 02/17/18 09:41 Dose: 2 mg Lactated Ringer's (Lactated Ringers Solution) 1,000 ml in 1,000 mls @ 100 mls/ hr IV ASDIR [facility] Last Admin: 02/17/18 01:32 Dose: 100 mls/hr Levothyroxine Sodium (Synthroid Injection -) 75 mcg IVPUSH AM [facility] Last Admin: 02/17/18 06:32 Dose: 75 mcg Ondansetron HCl (Zofran Injection) 4 mg IVPB Q8H PRN PRN Reason: NAUSEA Pantoprazole Sodium (Protonix Iv) 40 mg IVPUSH DAILY [facility] Last Admin: 02/17/18 09:41 Dose: 40 mg - Objective Vital Signs: Vital Signs Temperature 99.4 F 02/17/18 05:07 Pulse Rate 63 02/17/18 05:07 Respiratory Rate 20 02/17/18 05:07 Blood Pressure 128/76 02/17/18 05:07 O2 Sat by Pulse Oximetry (%) 94 L 02/16/18 21:00 Constitutional: Yes: No Distress Eyes: Yes: WNL HENT: Yes: WNL Neck: Yes: WNL Cardiovascular: Yes: WNL Respiratory: Yes: WNL Gastrointestinal: Yes: Distention, Other (colostomy) Genitourinary: Yes: WNL Musculoskeletal: Yes: WNL Extremities: Yes: WNL Wound/Incision: Yes: Other Neurological: Yes: WNL Labs: CBC, BMP 02/17/18 06:00 02/17/18 06:00 INR, PTT INR 1.07 (0.83-1.09) 02/13/18 10:40 Problem List - Problems (1) Abdominal pain Code(s): R10.9 - UNSPECIFIED ABDOMINAL PAIN Qualifiers: Abdominal location: left lower quadrant Qualified Code(s): R10.32 - Left lower quadrant pain (2) Abnormal colonoscopy Code(s): R93.3 - ABNORMAL FINDINGS ON DX IMAGING OF PRT DIGESTIVE TRACT (3) Neoplasm of sigmoid colon Code(s): D49.0 - NEOPLASM OF UNSPECIFIED BEHAVIOR OF DIGESTIVE SYSTEM Assessment/Plan SURGERY EVAL AND F/U APPRECIATED PAIN CONTROL DIET STARTED OOB TO CHAIR DVT PROPHYLAXIS
--- NOTE | 2018-02-17 15:17 | PN ---
Progress Note, Physician Chief Complaint: abdominal pain and colon mass History of Present Illness: 57 yo male presenting to [facility] ER via private auto complaining of occasional lower left abdominal discomfort. stable post operatively. But has some grade fevers - Current Medication List Current Medications: Active Medications Acetaminophen (Tylenol -) 650 mg PO Q6H PRN PRN Reason: FEVER Last Admin: 02/16/18 23:11 Dose: 650 mg Hydromorphone HCl (Dilaudid Vial -) 2 mg IVPB Q4H PRN PRN Reason: PAIN LEVEL 6-10 Last Admin: 02/17/18 09:41 Dose: 2 mg Lactated Ringer's (Lactated Ringers Solution) 1,000 ml in 1,000 mls @ 100 mls/ hr IV [facility] Last Admin: 02/17/18 01:32 Dose: 100 mls/hr Levothyroxine Sodium (Synthroid Injection -) 75 mcg IVPUSH AM [facility] Last Admin: 02/17/18 06:32 Dose: 75 mcg Ondansetron HCl (Zofran Injection) 4 mg IVPB Q8H PRN PRN Reason: NAUSEA Pantoprazole Sodium (Protonix Iv) 40 mg IVPUSH DAILY [facility] Last Admin: 02/17/18 09:41 Dose: 40 mg - Objective Vital Signs: Vital Signs Temperature 99.4 F 02/17/18 05:07 Pulse Rate 63 02/17/18 05:07 Respiratory Rate 20 02/17/18 05:07 Blood Pressure 128/76 02/17/18 05:07 O2 Sat by Pulse Oximetry (%) 95 02/17/18 10:00 Vital Signs Period Temp Pulse Resp BP Sys/Cavanaugh Pulse Ox Last 24 Hr 99.4 F-99.5 F 63-65 20-20 128-134/76-83 94-95 Constitutional: Yes: Well Nourished, No Distress, Calm Eyes: Yes: Conjunctiva Clear, EOM Intact HENT: Yes: Atraumatic, Normocephalic Neck: Yes: Supple, Trachea Midline Cardiovascular: Yes: Regular Rate and Rhythm, S1, S2 Respiratory: Yes: Regular, CTA Bilaterally Gastrointestinal: Yes: Normal Bowel Sounds, Soft, Distention, Tenderness ( incisional and LLQ) Genitourinary: No: CVA Tenderness - Left, CVA Tenderness - Right Musculoskeletal: No: Muscle Pain, Muscle Weakness Extremities: No: Cool, Cyanosis Edema: No Peripheral Pulses WNL: Yes Peripheral Pulses: Left Radial: 2+, Right Radial: 2+, Left Doralis Pedis: 2+, Right Dorsalis Pedis: 2+ Integumentary: No: Jaundice, Rash, Tattoos Neurological: Yes: Alert, Oriented Psychiatric: Yes: Alert, Oriented Labs: CBC, BMP 02/17/18 06:00 02/17/18 06:00 INR, PTT INR 1.07 (0.83-1.09) 02/13/18 10:40 Problem List - Problems (1) Neoplasm of sigmoid colon Assessment/Plan: POD#3 s/p sigmoid colectomy and primary, patholohy returned malignant mass Medical oncology workup Clear liquid diet OOB and ambulate encourage IS physical therapy evaluation will follow Code(s): D49.0 - NEOPLASM OF UNSPECIFIED BEHAVIOR OF DIGESTIVE SYSTEM (2) Sigmoid thickening Code(s): K63.9 - DISEASE OF INTESTINE, UNSPECIFIED (3) Abdominal pain Code(s): R10.9 - UNSPECIFIED ABDOMINAL PAIN Qualifiers: Abdominal location: left lower quadrant Qualified Code(s): R10.32 - Left lower quadrant pain (4) Abnormal colonoscopy Code(s): R93.3 - ABNORMAL FINDINGS ON DX IMAGING OF PRT DIGESTIVE TRACT
[2018-02-17] MEDS: ACETAMINOPHEN 325 MG TABLET (FP) PO PRN ×2 (17:01→23:30)
[2018-02-18] MEDS: LACTATED RINGERS SOLUTION 1,000 ML/1,000 ML INFUS.BAG IV SCH ×4 (03:50→22:40)
[2018-02-18] MEDS ORDERED: PT OWN MED DRAWER 7, Y5N ONE (05:57)
[2018-02-18] MEDS: LEVOTHYROXINE SODIUM 100 MCG VIAL IVPUSH SCH (06:03)
[2018-02-18] MEDS: ACETAMINOPHEN 325 MG TABLET (FP) PO PRN ×2 (06:55→14:18)
[2018-02-18] MEDS: PANTOPRAZOLE SODIUM 40 MG VIAL IVPUSH SCH (09:11)
--- NOTE | 2018-02-18 11:32 | PN ---
Progress Note, Physician Chief Complaint: AWAKE ALERT FEVER OVERNIGHT - Current Medication List Current Medications: Active Medications Acetaminophen (Tylenol -) 650 mg PO Q6H PRN PRN Reason: FEVER Last Admin: 02/18/18 06:55 Dose: 650 mg Hydromorphone HCl (Dilaudid Vial -) 2 mg IVPB Q4H PRN PRN Reason: PAIN LEVEL 6-10 Last Admin: 02/17/18 09:41 Dose: 2 mg Lactated Ringer's (Lactated Ringers Solution) 1,000 ml in 1,000 mls @ 100 mls/ hr IV ASDIR [facility] Last Admin: 02/18/18 03:50 Dose: 100 mls/hr Levothyroxine Sodium (Synthroid Injection -) 75 mcg IVPUSH AM [facility] Last Admin: 02/18/18 06:03 Dose: 75 mcg Ondansetron HCl (Zofran Injection) 4 mg IVPB Q8H PRN PRN Reason: NAUSEA Pantoprazole Sodium (Protonix Iv) 40 mg IVPUSH DAILY [facility] Last Admin: 02/18/18 09:11 Dose: 40 mg - Objective Vital Signs: Vital Signs Temperature 98.6 F 02/18/18 08:59 Pulse Rate 86 02/18/18 08:59 Respiratory Rate 16 02/18/18 08:59 Blood Pressure 142/78 02/18/18 08:59 O2 Sat by Pulse Oximetry (%) 96 02/17/18 21:00 Constitutional: Yes: Mild Distress Eyes: Yes: WNL HENT: Yes: WNL Neck: Yes: WNL Cardiovascular: Yes: WNL Respiratory: Yes: WNL Gastrointestinal: Yes: Tenderness, Other (COLOSTOMY) Genitourinary: Yes: WNL Musculoskeletal: Yes: Muscle Weakness Extremities: Yes: WNL Edema: No Peripheral Pulses WNL: Yes Integumentary: Yes: WNL Wound/Incision: Yes: Clean/Dry Neurological: Yes: WNL ...Motor Strength: WNL Psychiatric: Yes: WNL Labs: CBC, BMP 02/17/18 06:00 02/17/18 06:00 INR, PTT INR 1.07 (0.83-1.09) 02/13/18 10:40 Problem List - Problems (1) Abdominal pain Code(s): R10.9 - UNSPECIFIED ABDOMINAL PAIN Qualifiers: Abdominal location: left lower quadrant Qualified Code(s): R10.32 - Left lower quadrant pain (2) Abnormal colonoscopy Code(s): R93.3 - ABNORMAL FINDINGS ON DX IMAGING OF PRT DIGESTIVE TRACT (3) Neoplasm of sigmoid colon Code(s): D49.0 - NEOPLASM OF UNSPECIFIED BEHAVIOR OF DIGESTIVE SYSTEM Assessment/Plan SURGERY EVAL AND F/U APPRECIATED PAIN CONTROL FEVER/CHECK BLOOD CX DIET STARTED CLEARS OOB TO CHAIR DVT PROPHYLAXIS
[2018-02-18] MEDS ORDERED: SIMETHICONE 80 MG TAB.CHEW (FP) PO PRN (11:33)
--- NOTE | 2018-02-18 11:35 | PN ---
Progress Note, Physician Chief Complaint: abdominal pain and colon mass History of Present Illness: 57 yo male presenting to [facility] ER via private auto complaining of occasional lower left abdominal discomfort. stable post operatively. - Current Medication List Current Medications: Active Medications Acetaminophen (Tylenol -) 650 mg PO Q6H PRN PRN Reason: FEVER Last Admin: 02/18/18 06:55 Dose: 650 mg Hydromorphone HCl (Dilaudid Vial -) 2 mg IVPB Q4H PRN PRN Reason: PAIN LEVEL 6-10 Last Admin: 02/17/18 09:41 Dose: 2 mg Lactated Ringer's (Lactated Ringers Solution) 1,000 ml in 1,000 mls @ 100 mls/ hr IV ASDIR [facility] Last Admin: 02/18/18 03:50 Dose: 100 mls/hr Levothyroxine Sodium (Synthroid Injection -) 75 mcg IVPUSH AM [facility] Last Admin: 02/18/18 06:03 Dose: 75 mcg Ondansetron HCl (Zofran Injection) 4 mg IVPB Q8H PRN PRN Reason: NAUSEA Pantoprazole Sodium (Protonix Iv) 40 mg IVPUSH DAILY [facility] Last Admin: 02/18/18 09:11 Dose: 40 mg Simethicone (Mylicon -) 80 mg PO Q4H PRN PRN Reason: GAS - Objective Vital Signs: Vital Signs Temperature 98.6 F 02/18/18 08:59 Pulse Rate 86 02/18/18 08:59 Respiratory Rate 16 02/18/18 08:59 Blood Pressure 142/78 02/18/18 08:59 O2 Sat by Pulse Oximetry (%) 96 02/17/18 21:00 Constitutional: Yes: Well Nourished, No Distress, Calm Eyes: Yes: Conjunctiva Clear, EOM Intact HENT: Yes: Atraumatic, Normocephalic Neck: Yes: Supple, Trachea Midline Cardiovascular: Yes: Regular Rate and Rhythm, S1, S2 Respiratory: Yes: Regular, CTA Bilaterally Gastrointestinal: Yes: Normal Bowel Sounds, Soft, Abdomen, Obese, Tenderness. No: Tenderness, Epigastrium, Tenderness, Rebound, Vomiting ...Rectal Exam: Yes: Deferred Genitourinary: No: CVA Tenderness - Left, CVA Tenderness - Right Musculoskeletal: No: Joint Swelling, Muscle Pain, Muscle Weakness Extremities: No: Cool, Cyanosis Edema: No Peripheral Pulses WNL: Yes Peripheral Pulses: Left Radial: 2+, Right Radial: 2+, Left Doralis Pedis: 2+, Right Dorsalis Pedis: 2+ Integumentary: No: Jaundice, Rash, Skin Tear, Tattoos Wound/Incision: Yes: Clean/Dry, Well Approximated, Oj Intact, Open to air Neurological: Yes: Alert, Oriented Psychiatric: Yes: Alert, Oriented Labs: CBC, BMP 02/17/18 06:00 02/17/18 06:00 INR, PTT INR 1.07 (0.83-1.09) 02/13/18 10:40 Problem List - Problems (1) Neoplasm of sigmoid colon Assessment/Plan: POD#4 s/p sigmoid colectomy and primary Medical oncology workup Clear liquid diet OOB and ambulate encourage IS physical therapy evaluation will follow Code(s): D49.0 - NEOPLASM OF UNSPECIFIED BEHAVIOR OF DIGESTIVE SYSTEM (2) Sigmoid thickening Code(s): K63.9 - DISEASE OF INTESTINE, UNSPECIFIED (3) Abdominal pain Code(s): R10.9 - UNSPECIFIED ABDOMINAL PAIN Qualifiers: Abdominal location: left lower quadrant Qualified Code(s): R10.32 - Left lower quadrant pain (4) Abnormal colonoscopy Code(s): R93.3 - ABNORMAL FINDINGS ON DX IMAGING OF PRT DIGESTIVE TRACT
[2018-02-18] MEDS: HYDROmorphone HCl 2 MG/ML VIAL IVPB PRN ×2 (13:02→18:17)
[2018-02-18 13:23] LABS: URINE APPEARANCE CLEAR; URINE BILIRUBIN NEGATIVE (<2.0 mg/dL); URINE COLOR AMBER; URINE GLUCOSE (UA) NEGATIVE (NEGATIVE); URINE KETONE 1+ (NEGATIVE); URINE LEUK ESTERASE NEGATIVE (NEGATIVE); URINE NITRITE NEGATIVE (NEGATIVE); URINE PROTEIN 2+ (NEGATIVE); URINE UROBILINOGEN NEGATIVE mg/dL (0.2-1.0)
[2018-02-18 13:44] LABS: EPI CELLS RARE /HPF (FEW); URINE MUCUS RARE
--- NOTE | 2018-02-18 18:39 | CONSULT ---
Consult Consult Specialty:: Surgery Referred by:: Dr. Ventura Reason for Consultation:: Colon cancer - History of Present Illness Chief Complaint: Abdominal pain History of Present Illness: 57M with no significant PMHx initially presented with intermittent left sided abdominal pain. Colonoscopy on Feb 09 revealed a sigmoid mass s/p sigmoidectomy by Dr. Ventura on 02/15/18 (path pT2N0). Pt currently denies abdominal pain. Endorses BMs and PO intake. Denies melena and hematochezia. Fevers today, infectious w/u pending. - History Source History Provided By: Patient Limitations to Obtaining History: Language Barrier - Past Medical History Renal/: Yes: BPH Endocrine: Yes: Hypothyroidism - Alcohol/Substance Use Hx Alcohol Use: No - Smoking History Smoking history: Unknown if ever smoked Have you smoked in the past 12 months: No - Social History ADL: Independent History of Recent Travel: No Home Medications - Allergies Allergies/Adverse Reactions: Allergies Allergy/AdvReac Type Severity Reaction Status Date / Time No Known Allergies Allergy Verified 02/13/18 09:20 - Home Medications Home Medications: Ambulatory Orders Levothyroxine [Synthroid -] 100 mcg PO DAILY 02/13/18 Family Disease History - Family Disease History Family Disease History: Heart Disease: Father (mi age 70) Review of Systems - Review of Systems Constitutional: reports: No Symptoms Cardiovascular: reports: No Symptoms Respiratory: reports: No Symptoms Gastrointestinal: reports: Abdominal Pain. denies: Rectal Bleeding Physical Exam Vital Signs: Vital Signs Temperature 99.2 F 02/18/18 15:15 Pulse Rate 86 02/18/18 08:59 Respiratory Rate 16 02/18/18 08:59 Blood Pressure 142/78 02/18/18 08:59 O2 Sat by Pulse Oximetry (%) 97 02/18/18 09:00 Constitutional: Yes: Well Nourished, No Distress Eyes: No: Sclera Icterus Cardiovascular: Yes: Regular Rate and Rhythm Respiratory: Yes: Regular, CTA Bilaterally Gastrointestinal: No: Melena, Palpable Mass, Tenderness Extremities: Yes: WNL Edema: No Labs: CBC, BMP 02/17/18 06:00 02/17/18 06:00 Imaging - Results Cat Scan: Report Reviewed Other: Other (Surgical path report reviewed) Problem List - Problems (1) Neoplasm of sigmoid colon Assessment/Plan: 57M with no significant PMHx initially presented with abdominal pain. Colonoscopy on Feb 09 revealed a sigmoid mass s/p sigmoidectomy by Dr. Ventura on 02/15/18. Path with moderately differentiated adenocarcinoma, 4.3 cm with invasion of muscularis propria but no perineural or lymphovascular invasion; negative margins and lymph nodes, pT2N0. Patient has stage I colon cancer which does not need adjuvant treatment. 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 Will re-attempt discussion tomorrow when his daughter may also be here. Recommend iron studies given mild anemia Code(s): D49.0 - NEOPLASM OF UNSPECIFIED BEHAVIOR OF DIGESTIVE SYSTEM
[2018-02-18] MEDS ORDERED: PIPERACILLIN/TAZOBACTAM 3.375 GM VIAL IVPB ONE (19:58)
[2018-02-18] MEDS: PIPERACILLIN/TAZOB 3.375 GM 3.375 GM in DEXTROSE 5%-WATER - 50 ML IVPB SCH (20:01)
[2018-02-19] MEDS ORDERED: DEXTROSE 5%-WATER - 50 ML IVPB ONE ×3 (02:35→17:16)
[2018-02-19] MEDS ORDERED: PIPERACILLIN/TAZOBACTAM 3.375 GM VIAL IVPB ONE ×3 (02:35→17:16)
[2018-02-19] MEDS: PIPERACILLIN/TAZOB 3.375 GM 3.375 GM in DEXTROSE 5%-WATER - 50 ML IVPB SCH ×3 (02:42→17:22)
[2018-02-19] MEDS: ACETAMINOPHEN 325 MG TABLET (FP) PO PRN ×2 (02:46→17:46)
[2018-02-19] MEDS: LEVOTHYROXINE SODIUM 100 MCG VIAL IVPUSH SCH (06:23)
[2018-02-19 07:24] LABS: BASO % 0.1 % (0-2.0); HEMATOCRIT 37.6 % (35.4-49); HEMOGLOBIN 11.8 GM/dL (11.7-16.9); LYMPH % 11.4 % (8-40); MCH 25.1 pg (25.7-33.7); MCHC 31.4 g/dl (32.0-35.9); MEAN PLT VOLUME 7.4 fl (7.5-11.1); MONO % 6.2 % (3.8-10.2); NEUT % 82.3 % (42.8-82.8); PLATELET COUNT 233 K/MM3 (134-434); WHITE BLOOD COUNT 6.9 K/mm3 (4.0-10.0)
[2018-02-19 08:06] LABS: ALBUMIN 2.2 g/dl (3.4-5.0); ALK PHOS 69 U/L (45-117); ANION GAP 10 MMOL/L (8-16); BILIRUBIN,TOTAL 0.9 mg/dL (0.2-1); BLOOD UREA NITROGEN 13 mg/dL (7-18); CALCIUM 7.7 mg/dL (8.5-10.1); CHLORIDE 102 mmol/L (98-107); CO2 24 mmol/L (21-32); CREATININE 0.8 mg/dL (0.55-1.3); GLUCOSE,RANDOM 129 mg/dL (74-106); POTASSIUM 4.2 mmol/L (3.5-5.1); SGOT/AST 14 U/L (15-37); SGPT/ALT 23 U/L (13-61); SODIUM 136 mmol/L (136-145); TOT PROT 5.2 g/dl (6.4-8.2)
[2018-02-19] MEDS: PANTOPRAZOLE SODIUM 40 MG VIAL IVPUSH SCH (09:20)
[2018-02-19] MEDS: HYDROmorphone HCl 2 MG/ML VIAL IVPB PRN ×2 (11:05→15:05)
[2018-02-19] MEDS: LACTATED RINGERS SOLUTION 1,000 ML/1,000 ML INFUS.BAG IV SCH ×3 (11:06→22:42)
--- NOTE | 2018-02-19 12:23 | PN ---
Progress Note, Physician Chief Complaint: AWAKE ALERT EATING LUNCH - Current Medication List Current Medications: Active Medications Acetaminophen (Tylenol -) 650 mg PO Q6H PRN PRN Reason: FEVER Last Admin: 02/19/18 02:46 Dose: 650 mg Hydromorphone HCl (Dilaudid Vial -) 2 mg IVPB Q4H PRN PRN Reason: PAIN LEVEL 6-10 Last Admin: 02/19/18 11:05 Dose: 2 mg Lactated Ringer's (Lactated Ringers Solution) 1,000 ml in 1,000 mls @ 100 mls/ hr IV ASDIR [facility] Last Admin: 02/19/18 11:06 Dose: 100 mls/hr Piperacillin Sod/Tazobactam (Sod 3.375 gm/ Dextrose) 50 mls @ 100 mls/hr IVPB Q8H-IV [facility]; Protocol Stop: 02/19/18 18:29 Last Admin: 02/19/18 09:20 Dose: 100 mls/hr Piperacillin Sod/Tazobactam (Sod 3.375 gm/ Dextrose) 50 mls @ 100 mls/hr IVPB Q8H-IV [facility] Stop: 02/20/18 17:59 Levothyroxine Sodium (Synthroid Injection -) 75 mcg IVPUSH AM [facility] Last Admin: 02/19/18 06:23 Dose: 75 mcg Ondansetron HCl (Zofran Injection) 4 mg IVPB Q8H PRN PRN Reason: NAUSEA Pantoprazole Sodium (Protonix Iv) 40 mg IVPUSH DAILY [facility] Last Admin: 02/19/18 09:20 Dose: 40 mg Simethicone (Mylicon -) 80 mg PO Q4H PRN PRN Reason: GAS Last Admin: 02/18/18 17:44 Dose: 80 mg - Objective Vital Signs: Vital Signs Temperature 97.7 F 02/19/18 02:00 Pulse Rate 112 H 02/19/18 02:00 Respiratory Rate 19 02/18/18 17:00 Blood Pressure 108/68 02/19/18 02:00 O2 Sat by Pulse Oximetry (%) 97 02/18/18 22:00 Constitutional: Yes: Mild Distress Eyes: Yes: WNL HENT: Yes: WNL Neck: Yes: WNL Cardiovascular: Yes: WNL Respiratory: Yes: WNL Gastrointestinal: Yes: Soft, Tenderness, Other (COLOSTOMY) Genitourinary: Yes: WNL Extremities: Yes: WNL Edema: No Peripheral Pulses WNL: Yes Wound/Incision: Yes: Other Labs: CBC, BMP 02/19/18 06:15 02/19/18 06:15 INR, PTT INR 1.07 (0.83-1.09) 02/13/18 10:40 Problem List - Problems (1) Abdominal pain Code(s): R10.9 - UNSPECIFIED ABDOMINAL PAIN Qualifiers: Abdominal location: left lower quadrant Qualified Code(s): R10.32 - Left lower quadrant pain (2) Abnormal colonoscopy Code(s): R93.3 - ABNORMAL FINDINGS ON DX IMAGING OF PRT DIGESTIVE TRACT (3) Neoplasm of sigmoid colon Code(s): D49.0 - NEOPLASM OF UNSPECIFIED BEHAVIOR OF DIGESTIVE SYSTEM Assessment/Plan SURGERY EVAL AND F/U APPRECIATED PAIN CONTROL FEVER/CHECK BLOOD CX DIET STARTED CLEARS OOB TO CHAIR DVT PROPHYLAXIS STARTED AMINO ACIDS AND MVI
--- NOTE | 2018-02-19 13:16 | CON.ID ---
Consult Consult Specialty:: infectious diseases Referred by:: Reason for Consultation:: post op fever - History of Present Illness Chief Complaint: abd pain,fever History of Present Illness: 57 year old man with history of hypothyroidism, admitted on 02/13 with abdominal pain with colonoscopy findings concerning for cancer on 02/08. Sigmoid colon mass resected by Surgery s (02/14) without complications. Colon mass found to be Stage 1 colon cancer: moderately differentiated adenocarcinoma. patient has been post op for couple of days and now has started spiking fevers also patient states that his abd has been distended and has not passed gases yet he does continue to be tachycardiac,but looks comfortable with no obvious distress - History Source History Provided By: Patient, Medical Record Limitations to Obtaining History: No Limitations - Past Medical History Renal/: Yes: BPH Endocrine: Yes: Hypothyroidism - Alcohol/Substance Use Hx Alcohol Use: No - Smoking History Smoking history: Unknown if ever smoked Have you smoked in the past 12 months: No - Social History ADL: Independent History of Recent Travel: No Home Medications - Allergies Allergies/Adverse Reactions: Allergies Allergy/AdvReac Type Severity Reaction Status Date / Time No Known Allergies Allergy Verified 02/13/18 09:20 - Home Medications Home Medications: Ambulatory Orders Levothyroxine [Synthroid -] 100 mcg PO DAILY 02/13/18 Family Disease History - Family Disease History Family Disease History: Heart Disease: Father (mi age 70) Review of Systems - Review of Systems Constitutional: reports: Chills, Fever Cardiovascular: reports: No Symptoms Respiratory: reports: No Symptoms Gastrointestinal: reports: Bloating Genitourinary: reports: No Symptoms Musculoskeletal: reports: No Symptoms Integumentary: reports: No Symptoms Neurological: reports: No Symptoms Endocrine: reports: No Symptoms Hematology/Lymphatic: reports: No Symptoms Psychiatric: reports: No Symptoms Physical Exam Vital Signs: Vital Signs Temperature 97.7 F 02/19/18 02:00 Pulse Rate 112 H 02/19/18 02:00 Respiratory Rate 19 02/18/18 17:00 Blood Pressure 108/68 02/19/18 02:00 O2 Sat by Pulse Oximetry (%) 97 02/18/18 22:00 Constitutional: Yes: Well Nourished, No Distress, Calm HENT: Yes: Atraumatic Neck: Yes: Supple, Trachea Midline Cardiovascular: Yes: Regular Rate and Rhythm Respiratory: Yes: Regular, Poor Air Entry (bases) Gastrointestinal: Yes: Distention, Tenderness, Other (absent bowel sounds, inscision--c/d/i) Musculoskeletal: Yes: WNL Extremities: Yes: WNL Neurological: Yes: Alert, Oriented Psychiatric: Yes: Alert, Oriented Labs: CBC, BMP 02/19/18 06:15 02/19/18 06:15 Assessment/Plan Problem List - Problems (1) Neoplasm of sigmoid colon Code(s): D49.0 - NEOPLASM OF UNSPECIFIED BEHAVIOR OF DIGESTIVE SYSTEM (2) Sigmoid thickening Code(s): K63.9 - DISEASE OF INTESTINE, UNSPECIFIED (3) Abdominal pain Code(s): R10.9 - UNSPECIFIED ABDOMINAL PAIN Qualifiers: Abdominal location: left lower quadrant Qualified Code(s): R10.32 - Left lower quadrant pain (4) Abnormal colonoscopy Code(s): R93.3 - ABNORMAL FINDINGS ON DX IMAGING OF PRT DIGESTIVE TRACT fever abd distension plan ct scan of the abd npo iv fluids will start patient on abx will d.\w/ the surgical team rest as per the team
[2018-02-19] MEDS: AMINO ACIDS/PROTEIN HYDROLYS 30 ML LIQUID.PKT PO SCH (17:22)
--- NOTE | 2018-02-19 17:53 | PN ---
Progress Note, Physician Chief Complaint: Colon ca s/p resection History of Present Illness: Feels well. No complaints today but with persistent unexplained fevers. - Current Medication List Current Medications: Active Medications Acetaminophen (Tylenol -) 650 mg PO Q6H PRN PRN Reason: FEVER Last Admin: 02/19/18 17:46 Dose: 650 mg Amino Acids (Prosource No Carb Liquid Pkt) 30 ml PO BID@0800,1730 [facility] Last Admin: 02/19/18 17:22 Dose: 30 ml Hydromorphone HCl (Dilaudid Vial -) 2 mg IVPB Q4H PRN PRN Reason: PAIN LEVEL 6-10 Last Admin: 02/19/18 15:05 Dose: 2 mg Lactated Ringer's (Lactated Ringers Solution) 1,000 ml in 1,000 mls @ 100 mls/ hr IV ASDIR JERED Last Admin: 02/19/18 11:06 Dose: 100 mls/hr Piperacillin Sod/Tazobactam (Sod 3.375 gm/ Dextrose) 50 mls @ 100 mls/hr IVPB Q8H-IV [facility]; Protocol Stop: 02/19/18 18:29 Last Admin: 02/19/18 17:22 Dose: 100 mls/hr Piperacillin Sod/Tazobactam (Sod 3.375 gm/ Dextrose) 50 mls @ 100 mls/hr IVPB Q8H-IV [facility] Stop: 02/20/18 17:59 Levothyroxine Sodium (Synthroid Injection -) 75 mcg IVPUSH AM [facility] Last Admin: 02/19/18 06:23 Dose: 75 mcg Multivitamins/Minerals/Vitamin C (Tab-A-Vit -) 1 tab PO DAILY [facility] Ondansetron HCl (Zofran Injection) 4 mg IVPB Q8H PRN PRN Reason: NAUSEA Pantoprazole Sodium (Protonix Iv) 40 mg IVPUSH DAILY [facility] Last Admin: 02/19/18 09:20 Dose: 40 mg Simethicone (Mylicon -) 80 mg PO Q4H PRN PRN Reason: GAS Last Admin: 02/18/18 17:44 Dose: 80 mg - Objective Vital Signs: Vital Signs Temperature 102.9 F H 02/19/18 17:48 Pulse Rate 106 H 02/19/18 09:00 Respiratory Rate 20 02/19/18 09:00 Blood Pressure 128/71 02/19/18 09:00 O2 Sat by Pulse Oximetry (%) 97 02/18/18 22:00 Constitutional: Yes: Well Nourished Cardiovascular: Yes: Regular Rate and Rhythm Respiratory: Yes: CTA Bilaterally Gastrointestinal: Yes: Soft Extremities: Yes: WNL Edema: No Neurological: Yes: Alert, Oriented Labs: CBC, BMP 02/19/18 06:15 02/19/18 06:15 INR, PTT INR 1.07 (0.83-1.09) 02/13/18 10:40 Problem List - Problems (1) Neoplasm of sigmoid colon Assessment/Plan: 57M with no significant PMHx initially presented with abdominal pain. Colonoscopy on Feb 09 revealed a sigmoid mass s/p sigmoidectomy by Dr. Ventura on 02/15/18. Path with moderately differentiated adenocarcinoma, 4.3 cm with invasion of muscularis propria but no perineural or lymphovascular invasion; negative margins and lymph nodes, pT2N0. Patient has stage I colon cancer which does not need adjuvant treatment. Ferritin 96, rest of iron studies pending. Cannot r/o iron defiency as probably acute phase reactant after surgery. May need to repeat as outpatient to evaluate for iron deficiency ID following for fevers Code(s): D49.0 - NEOPLASM OF UNSPECIFIED BEHAVIOR OF DIGESTIVE SYSTEM
[2018-02-19] MEDS ORDERED: PIPERACILLIN/TAZOB 3.375 GM 3.375 GM in DEXTROSE 5%-WATER - 50 ML IVPB SCH (18:00)
[2018-02-20] MEDS: HYDROmorphone HCl 2 MG/ML VIAL IVPB PRN ×2 (01:21→06:10)
[2018-02-20] MEDS: LEVOTHYROXINE SODIUM 100 MCG VIAL IVPUSH SCH (06:07)
[2018-02-20 07:39] LABS: HEMATOCRIT 36.2 % (35.4-49); HEMOGLOBIN 11.3 GM/dL (11.7-16.9); MCH 25.2 pg (25.7-33.7); MCHC 31.1 g/dl (32.0-35.9); MEAN CELL VOLUME 80.9 fl (80-96); MEAN PLT VOLUME 7.2 fl (7.5-11.1); PLATELET COUNT 262 K/MM3 (134-434); RBC 4.48 M/mm3 (4.00-5.60); RDW 20.3 % (11.9-15.9); WHITE BLOOD COUNT 6.3 K/mm3 (4.0-10.0)
[2018-02-20 08:38] LABS: ANION GAP 8 MMOL/L (8-16); BLOOD UREA NITROGEN 16 mg/dL (7-18); CALCIUM 7.6 mg/dL (8.5-10.1); CHLORIDE 98 mmol/L (98-107); CO2 27 mmol/L (21-32); CREATININE 0.8 mg/dL (0.55-1.3); GLUCOSE,RANDOM 129 mg/dL (74-106); MAGNESIUM 2.2 mg/dL (1.8-2.4); POTASSIUM 4.6 mmol/L (3.5-5.1); SODIUM 133 mmol/L (136-145)
[2018-02-20] MEDS: AMINO ACIDS/PROTEIN HYDROLYS 30 ML LIQUID.PKT PO SCH ×2 (08:46→17:30)
--- NOTE | 2018-02-20 08:58 | PN ---
Progress Note, Physician Chief Complaint: SEEN IN THE MORNING AWAKE ALERT NAD - Current Medication List Current Medications: Active Medications Acetaminophen (Tylenol -) 650 mg PO Q6H PRN PRN Reason: FEVER Last Admin: 02/19/18 17:46 Dose: 650 mg Amino Acids (Prosource No Carb Liquid Pkt) 30 ml PO BID@0800,1730 [facility] Last Admin: 02/20/18 08:46 Dose: 30 ml Hydromorphone HCl (Dilaudid Vial -) 2 mg IVPB Q4H PRN PRN Reason: PAIN LEVEL 6-10 Last Admin: 02/20/18 06:10 Dose: 2 mg Lactated Ringer's (Lactated Ringers Solution) 1,000 ml in 1,000 mls @ 100 mls/ hr IV ASDIR [facility] Last Admin: 02/19/18 22:42 Dose: 100 mls/hr Piperacillin Sod/Tazobactam (Sod 3.375 gm/ Dextrose) 50 mls @ 100 mls/hr IVPB Q8H-IV [facility] Stop: 02/20/18 17:59 Levothyroxine Sodium (Synthroid Injection -) 75 mcg IVPUSH AM [facility] Last Admin: 02/20/18 06:07 Dose: 75 mcg Multivitamins/Minerals/Vitamin C (Tab-A-Vit -) 1 tab PO DAILY [facility] Ondansetron HCl (Zofran Injection) 4 mg IVPB Q8H PRN PRN Reason: NAUSEA Pantoprazole Sodium (Protonix Iv) 40 mg IVPUSH DAILY [facility] Last Admin: 02/19/18 09:20 Dose: 40 mg Simethicone (Mylicon -) 80 mg PO Q4H PRN PRN Reason: GAS Last Admin: 02/18/18 17:44 Dose: 80 mg - Objective Vital Signs: Vital Signs Temperature 98.3 F 02/20/18 06:47 Pulse Rate 90 02/20/18 06:47 Respiratory Rate 19 02/20/18 06:47 Blood Pressure 127/75 02/20/18 06:47 O2 Sat by Pulse Oximetry (%) 98 02/19/18 22:00 Constitutional: Yes: No Distress Eyes: Yes: WNL HENT: Yes: WNL, Thrush Cardiovascular: Yes: Regular Rate and Rhythm Respiratory: Yes: WNL Gastrointestinal: Yes: Other Genitourinary: Yes: WNL Musculoskeletal: Yes: WNL Extremities: Yes: WNL Edema: No Peripheral Pulses WNL: Yes Integumentary: Yes: WNL Wound/Incision: Yes: Clean/Dry Neurological: Yes: WNL ...Motor Strength: WNL Psychiatric: Yes: WNL Labs: CBC, BMP 02/20/18 07:02 02/20/18 07:02 INR, PTT INR 1.07 (0.83-1.09) 02/13/18 10:40 Problem List - Problems (1) Abdominal pain Code(s): R10.9 - UNSPECIFIED ABDOMINAL PAIN Qualifiers: Abdominal location: left lower quadrant Qualified Code(s): R10.32 - Left lower quadrant pain (2) Abnormal colonoscopy Code(s): R93.3 - ABNORMAL FINDINGS ON DX IMAGING OF PRT DIGESTIVE TRACT (3) Neoplasm of sigmoid colon Code(s): D49.0 - NEOPLASM OF UNSPECIFIED BEHAVIOR OF DIGESTIVE SYSTEM Assessment/Plan SURGERY EVAL AND F/U APPRECIATED PAIN CONTROL FEVER/CHECK BLOOD CX DIET STARTED CLEARS OOB TO CHAIR DVT PROPHYLAXIS STARTED AMINO ACIDS AND MVI SENDING FOR PARACENTESIS
[2018-02-20] MEDS: PANTOPRAZOLE SODIUM 40 MG VIAL IVPUSH SCH (09:51)
[2018-02-20] MEDS: MULTIVITAMINS (DAILY MVI) TABLET (FP) PO SCH (09:52)
--- NOTE | 2018-02-20 10:29 | PN ---
Progress Note, Physician Chief Complaint: abdominal pain and colon mass History of Present Illness: 57 yo male presenting to [facility] ER via private auto complaining of occasional lower left abdominal discomfort. stable post operatively. Plan for re= evaluation of anastomosis - Current Medication List Current Medications: Active Medications Acetaminophen (Tylenol -) 650 mg PO Q6H PRN PRN Reason: FEVER Last Admin: 02/19/18 17:46 Dose: 650 mg Amino Acids (Prosource No Carb Liquid Pkt) 30 ml PO BID@0800,1730 REPLACED BY [facility] Last Admin: 02/20/18 08:46 Dose: 30 ml Hydromorphone HCl (Dilaudid Vial -) 2 mg IVPB Q4H PRN PRN Reason: PAIN LEVEL 6-10 Last Admin: 02/20/18 06:10 Dose: 2 mg Lactated Ringer's (Lactated Ringers Solution) 1,000 ml in 1,000 mls @ 100 mls/ hr IV ASDIR REPLACED BY [facility] Last Admin: 02/19/18 22:42 Dose: 100 mls/hr Piperacillin Sod/Tazobactam (Sod 3.375 gm/ Dextrose) 50 mls @ 100 mls/hr IVPB Q8H-IV [facility]PL[facility]ED BY [facility] Stop: 02/20/18 17:59 Levothyroxine Sodium (Synthroid Injection -) 75 mcg IVPUSH AM REPLACED BY [facility] Last Admin: 02/20/18 06:07 Dose: 75 mcg Multivitamins/Minerals/Vitamin C (Tab-A-Vit -) 1 tab PO DAILY [facility]PL[facility] Last Admin: 02/20/18 09:52 Dose: 1 tab Ondansetron HCl (Zofran Injection) 4 mg IVPB Q8H PRN PRN Reason: NAUSEA Pantoprazole Sodium (Protonix Iv) 40 mg IVPUSH DAILY [facility]PL[facility]ED BY [facility] Last Admin: 02/20/18 09:51 Dose: 40 mg Simethicone (Mylicon -) 80 mg PO Q4H PRN PRN Reason: GAS Last Admin: 02/18/18 17:44 Dose: 80 mg - Objective Vital Signs: Vital Signs Temperature 98.3 F 02/20/18 06:47 Pulse Rate 90 02/20/18 06:47 Respiratory Rate 19 02/20/18 06:47 Blood Pressure 127/75 02/20/18 06:47 O2 Sat by Pulse Oximetry (%) 98 02/19/18 22:00 Vital Signs Period Temp Pulse Resp BP Sys/Cavanaugh Pulse Ox Last 24 Hr 98.3 F-102.9 F 90-120 19-20 107-127/72-75 98 Intake & Output 02/19/18 02/20/18 02/20/18 23:59 07:59 15:59 Intake Total 1400 1200 250 Output Total 100 Balance 1300 1200 250 Intake: IV 1000 1100 LACTATED RINGERS SOLUTION 1000 1100 1,000 ml In 1,000 ml @ 100 mls/hr IV ASDIR JERED Rx#:[id number] IVPB 200 100 Oral 200 250 Output: Urine 100 Void 100 Other: Voiding Method Toilet Toilet Bowel Movement No Constitutional: Yes: Well Nourished, No Distress, Calm Eyes: Yes: Conjunctiva Clear, EOM Intact HENT: Yes: Atraumatic, Normocephalic Neck: Yes: Supple, Trachea Midline Cardiovascular: Yes: Regular Rate and Rhythm, S1, S2 Respiratory: Yes: Regular, CTA Bilaterally Gastrointestinal: Yes: Normal Bowel Sounds, Soft, Abdomen, Obese, Distention, Tenderness, Tenderness, Rebound, Vomiting. No: Tenderness, Epigastrium ...Rectal Exam: Yes: Deferred Genitourinary: No: CVA Tenderness - Left, CVA Tenderness - Right Extremities: No: Cool, Cyanosis Edema: No Peripheral Pulses WNL: Yes Wound/Incision: Yes: Clean/Dry, Oj Intact Neurological: Yes: Alert, Oriented Psychiatric: Yes: Alert, Oriented Labs: CBC, BMP 02/20/18 07:02 02/20/18 07:02 INR, PTT INR 1.07 (0.83-1.09) 02/13/18 10:40 Problem List - Problems (1) Neoplasm of sigmoid colon Assessment/Plan: POD#5 s/p sigmoid colectomy and primary, early acute abdomen Medical oncology workup CT scan of Abd/Pelv with IV and PO contrast Clear liquid diet OOB and ambulate encourage IS physical therapy evaluation will follow Code(s): D49.0 - NEOPLASM OF UNSPECIFIED BEHAVIOR OF DIGESTIVE SYSTEM (2) Sigmoid thickening Code(s): K63.9 - DISEASE OF INTESTINE, UNSPECIFIED (3) Abdominal pain Code(s): R10.9 - UNSPECIFIED ABDOMINAL PAIN Qualifiers: Abdominal location: left lower quadrant Qualified Code(s): R10.32 - Left lower quadrant pain (4) Abnormal colonoscopy Code(s): R93.3 - ABNORMAL FINDINGS ON DX IMAGING OF PRT DIGESTIVE TRACT
[2018-02-20] MEDS: PIPERACILLIN/TAZOB 3.375 GM 3.375 GM in DEXTROSE 5%-WATER - 50 ML IVPB SCH ×2 (10:45→17:30)
--- NOTE | 2018-02-20 11:11 | PN ---
Progress Note, Physician History of Present Illness: abd distended no gases says he is burping more - Current Medication List Current Medications: Active Medications Acetaminophen (Tylenol -) 650 mg PO Q6H PRN PRN Reason: FEVER Last Admin: 02/19/18 17:46 Dose: 650 mg Amino Acids (Prosource No Carb Liquid Pkt) 30 ml PO BID@0800,1730 REPLACED BY [facility] Last Admin: 02/20/18 08:46 Dose: 30 ml Hydromorphone HCl (Dilaudid Vial -) 2 mg IVPB Q4H PRN PRN Reason: PAIN LEVEL 6-10 Last Admin: 02/20/18 06:10 Dose: 2 mg Lactated Ringer's (Lactated Ringers Solution) 1,000 ml in 1,000 mls @ 100 mls/ hr IV ASDIR REPLACED BY [facility] Last Admin: 02/19/18 22:42 Dose: 100 mls/hr Piperacillin Sod/Tazobactam (Sod 3.375 gm/ Dextrose) 50 mls @ 100 mls/hr IVPB Q8H-IV JERED; Protocol Levothyroxine Sodium (Synthroid Injection -) 75 mcg IVPUSH AM REPLACED BY [facility] Last Admin: 02/20/18 06:07 Dose: 75 mcg Multivitamins/Minerals/Vitamin C (Tab-A-Vit -) 1 tab PO DAILY REPLACED BY [facility] Last Admin: 02/20/18 09:52 Dose: 1 tab Ondansetron HCl (Zofran Injection) 4 mg IVPB Q8H PRN PRN Reason: NAUSEA Pantoprazole Sodium (Protonix Iv) 40 mg IVPUSH DAILY REPLACED BY [facility] Last Admin: 02/20/18 09:51 Dose: 40 mg Simethicone (Mylicon -) 80 mg PO Q4H PRN PRN Reason: GAS Last Admin: 02/18/18 17:44 Dose: 80 mg - Objective Vital Signs: Vital Signs Temperature 98.3 F 02/20/18 06:47 Pulse Rate 90 02/20/18 06:47 Respiratory Rate 19 02/20/18 06:47 Blood Pressure 127/75 02/20/18 06:47 O2 Sat by Pulse Oximetry (%) 98 02/19/18 22:00 Constitutional: Yes: No Distress, Calm Cardiovascular: Yes: Regular Rate and Rhythm Respiratory: Yes: Regular, CTA Bilaterally Gastrointestinal: Yes: Distention, Other (absent bowel sounds) Musculoskeletal: Yes: WNL Extremities: Yes: WNL Neurological: Yes: Alert, Oriented Psychiatric: Yes: Alert, Oriented Labs: CBC, BMP 02/20/18 07:02 02/20/18 07:02 INR, PTT INR 1.07 (0.83-1.09) 02/13/18 10:40 Assessment/Plan Problem List - Problems (1) Neoplasm of sigmoid colon Code(s): D49.0 - NEOPLASM OF UNSPECIFIED BEHAVIOR OF DIGESTIVE SYSTEM (2) Sigmoid thickening Code(s): K63.9 - DISEASE OF INTESTINE, UNSPECIFIED (3) Abdominal pain Code(s): R10.9 - UNSPECIFIED ABDOMINAL PAIN Qualifiers: Abdominal location: left lower quadrant Qualified Code(s): R10.32 - Left lower quadrant pain (4) Abnormal colonoscopy Code(s): R93.3 - ABNORMAL FINDINGS ON DX IMAGING OF PRT DIGESTIVE TRACT plan will continue abx rest continue current mgmt await for imaging studies rest as per the team
[2018-02-20] MEDS ORDERED: DEXTROSE 5%-WATER - 50 ML IVPB ONE ×3 (12:29→21:19)
[2018-02-20] MEDS ORDERED: PIPERACILLIN/TAZOBACTAM 3.375 GM VIAL IVPB ONE ×3 (12:29→21:19)
--- NOTE | 2018-02-20 14:36 | PN ---
Progress Note, Physician Chief Complaint: found in afib with RVR in CT scan no complaints of chest pain or sob, palpitations. History of Present Illness: 57 year old man with pmh hypothyroid recently dx colon mass admitted for resection, now POD 5 post surgery complaining of abdominal pain. CT scan with fluid collection awaiting drainage. Found with afib with RVR no symptoms in CT scan. - Current Medication List Current Medications: Active Medications Acetaminophen (Tylenol -) 650 mg PO Q6H PRN PRN Reason: FEVER Last Admin: 02/19/18 17:46 Dose: 650 mg Amino Acids (Prosource No Carb Liquid Pkt) 30 ml PO BID@0800,1730 [facility] Last Admin: 02/20/18 08:46 Dose: 30 ml Hydromorphone HCl (Dilaudid Vial -) 2 mg IVPB Q4H PRN PRN Reason: PAIN LEVEL 6-10 Last Admin: 02/20/18 06:10 Dose: 2 mg Lactated Ringer's (Lactated Ringers Solution) 1,000 ml in 1,000 mls @ 100 mls/ hr IV ASDIR JERED Last Admin: 02/19/18 22:42 Dose: 100 mls/hr Piperacillin Sod/Tazobactam (Sod 3.375 gm/ Dextrose) 50 mls @ 100 mls/hr IVPB Q8H-IV JERED; Protocol Levothyroxine Sodium (Synthroid Injection -) 75 mcg IVPUSH AM [facility] Last Admin: 02/20/18 06:07 Dose: 75 mcg Multivitamins/Minerals/Vitamin C (Tab-A-Vit -) 1 tab PO DAILY [facility] Last Admin: 02/20/18 09:52 Dose: 1 tab Ondansetron HCl (Zofran Injection) 4 mg IVPB Q8H PRN PRN Reason: NAUSEA Pantoprazole Sodium (Protonix Iv) 40 mg IVPUSH DAILY [facility] Last Admin: 02/20/18 09:51 Dose: 40 mg Simethicone (Mylicon -) 80 mg PO Q4H PRN PRN Reason: GAS Last Admin: 02/18/18 17:44 Dose: 80 mg - Objective Vital Signs: Vital Signs Temperature 100.4 F H 02/20/18 10:00 Pulse Rate 174 H 02/20/18 14:29 Respiratory Rate 20 02/20/18 14:29 Blood Pressure 143/79 02/20/18 14:29 O2 Sat by Pulse Oximetry (%) 94 L 02/20/18 14:29 Constitutional: Yes: No Distress, Calm, Poor Hygeine Eyes: Yes: EOM Intact HENT: Yes: Atraumatic, Normocephalic Neck: Yes: Trachea Midline Cardiovascular: Yes: Tachycardia, Pulse Irregular Respiratory: Yes: CTA Bilaterally Gastrointestinal: Yes: Abdomen, Obese, Hypoactive Bowel Sounds Musculoskeletal: Yes: WNL Edema: No Peripheral Pulses WNL: Yes Labs: CBC, BMP 02/20/18 07:02 02/20/18 07:02 INR, PTT INR 1.07 (0.83-1.09) 02/13/18 10:40 Assessment/Plan 57 year old man with pmh hypothyroid recently dx colon mass admitted for resection, now POD 5 post surgery complaining of abdominal pain. CT scan with fluid collection awaiting drainage. Found with afib with RVR no symptoms in CT scan. New atrial fibrillation -unclear duration -defer AC until surgically stable -If the patient is NPO at this point, can start IV dilt drip or IV propranolol 2mg IVSS q6h. -Echo when stable -KATJA -transfer to telemetry. -stable from cardiac standpoint for CT guided drainage if needed as this is driving his sepsis and atrial fibrillation.
[2018-02-20] MEDS ORDERED: dilTIAZem HCL 50 MG/10 ML - 10 ML VIAL IVPUSH ONE ×3 (14:52→15:41)
--- NOTE | 2018-02-20 14:54 | ED.PROV ---
Physicial Exam I saw and examined the patient. - Vital Signs Last Vital Signs Temp Pulse Resp BP Pulse Ox 100.4 F H 195 H 33 H 126/63 94 L 02/20/18 10:00 02/20/18 14:49 02/20/18 14:49 02/20/18 14:49 02/20/18 14:29 Critical Care Time/MDM Note - Medical Decision Making Note: 02/20/18 14:[address], patient in rapid afib, needed medication. Cardizem obtained from [employer], 20 mg total administered, patient HR did not respond. Cardizem drip ordered, awaiting from pharmacy, then will start in CT.
[2018-02-20] MEDS ORDERED: DILTIAZEM INJECTION 125 MG in SODIUM CHLORIDE 100 ML IVPB SCH (15:00)
--- NOTE | 2018-02-20 15:15 | HOSP ---
Subjective - Review of Symptoms General: No: Chills, Night Sweats, Fatigue, Malaise, Appetite, Other Cardiovascular: Yes: Palpitations Gastrointestinal: No: Nausea, NOSYM, Vomiting, Abdominal Pain, Diarrhea, Constipation, Melena, Hematochezia, Other Genitourinary: No: Dysuria, NOSYM, Frequency, Incontinence, Hematuria, Retention , Other Musculoskeletal: Yes: No Symptoms. No: Back Pain, Crepitus, Decreased ROM, Extremity Pain, Joint Pain, Joint Swelling, Muscle Pain, Muscle Cramps, Muscle Weakness, Other <Lili Mejia - Last Filed: 02/20/18 15:27> Physical Examination Vital Signs: Vital Signs Temperature 100.4 F H 02/20/18 10:00 Pulse Rate 195 H 02/20/18 14:49 Respiratory Rate 33 H 02/20/18 14:49 Blood Pressure 126/63 02/20/18 14:49 O2 Sat by Pulse Oximetry (%) 94 L 02/20/18 14:29 Eyes: Yes: WNL HENT: Yes: WNL Neck: Yes: Supple Cardiovascular: Yes: Pulse Irregular Respiratory: Yes: WNL Labs: CBC, [facility] 02/20/18 07:02 02/20/18 07:02 <Lili Mejia - Last Filed: 02/20/18 15:27> Vital Signs: Labs: CBC, [facility] 03/02/18 05:30 03/02/18 05:30 <Merlin Manrique - Last Filed: 03/02/18 16:11> Hospitalist Encounter Assessment: Rapid response called while pt was in CT scan. Pt was undergoing CT scan for sigmoid abscess drainage and catheter insertion when he was found to be in rapid afib. Initial vitals were as follows: HR 181 BP 143/72 RR 31 02 sat 94% Team responded at bedside. Pt was given cardiazem 10mg IVP x 2. In the interim, his rate improved to 150-160, however returned to rate of 180's. Pt asymptomatic at this time, only reported mild discomfort in chest area radiating "into throat." PE General: resting, in NAD Cardio: +irregularly irregular rhythm Pulm: CTA b/l. without rhonchi, wheezes, crackles As pt with continued rapid afib, will transfer to ICU for further management. may start cardiazem gtt. Afib is new in onset on this admission Cardio is Dr. Avila Last set of vitals in CT scan: 170 HR BP 109/60 RR 40 Lili Mejia MD PGY-2 Medicine team <Lili Mejia - Last Filed: 02/20/18 15:27> Visit type - Emergency Visit Emergency Visit: No - New Patient This patient is new to me today: Yes Date on this admission: 02/20/18 - Critical Care Critical Care patient: No <Lili Mejia - Last Filed: 02/20/18 15:27> - Critical Care Critical Care patient: Yes Total Critical Care Time (in minutes): 45 Critical Care Statement: The care of this patient involved high complexity decision making to prevent further life threatening deterioration of the patient 's condition and/or to evaluate & treat vital organ system(s) failure or risk of failure. <Merlin Manrique - Last Filed: 03/02/18 16:11>
--- NOTE | 2018-02-20 16:07 | CONSULT ---
Consult - History of Present Illness History of Present Illness: 57 year old man with history of hypothyroidism, admitted on 02/13 with abdominal pain with colonoscopy findings concerning for cancer on 02/08. Sigmoid colon mass resected by Surgery Dr. Ventura (02/14) without complications. Colon mass found to be Stage 1 colon cancer: moderately differentiated adenocarcinoma. Post op patient with overnight fever on 02/18. Per ID: Patient started on Zosyn for post op fever - 7 day course. Today day 06/08. Patient had some abdominal distention noted this AM. While in post op CT scan this AM patient tachycardic to 190. Cardiology called, patient thought to be tachycardic 2/2 fever/sepsis. Patient tachycardic with new onset Afib with RVR while in CT scan, rapid response called. Patient admitted to ICU floor. Total of 40mg cardizem given. Patient denies any chest pain or sob either at rest or with exertion. No palpitations, pnd, orthopnea, LE edema. no lightheadedness, dizziness, syncope or near syncope. Patient continued to be tachycardic up to 170s. Cardizem gtt at 5mg/hr once on floor, increased to 10mg/hr - Past Medical History Renal/: Yes: BPH Endocrine: Yes: Hypothyroidism - Alcohol/Substance Use Hx Alcohol Use: No - Smoking History Smoking history: Unknown if ever smoked Have you smoked in the past 12 months: No - Social History ADL: Independent History of Recent Travel: No Home Medications - Allergies Allergies/Adverse Reactions: Allergies Allergy/AdvReac Type Severity Reaction Status Date / Time No Known Allergies Allergy Verified 02/13/18 09:20 - Home Medications Home Medications: Ambulatory Orders Levothyroxine [Synthroid -] 100 mcg PO DAILY 02/13/18 Family Disease History - Family Disease History Family Disease History: Heart Disease: Father (mi age 70) Physical Exam Vital Signs: Vital Signs Temperature 100.4 F H 02/20/18 10:00 Pulse Rate 195 H 02/20/18 14:49 Respiratory Rate 33 H 02/20/18 14:49 Blood Pressure 126/63 02/20/18 14:49 O2 Sat by Pulse Oximetry (%) 94 L 02/20/18 14:29 GENERAL: Awake, alert, and fully oriented, in no acute distress HEAD: No signs of trauma, normocephalic, atraumatic EYES: PERRLA, EOMI, sclera anicteric, conjunctiva clear ENT: oropharynx clear without exudates. Moist mucosa NECK: Normal ROM, supple LUNGS: No distress, speaks full sentences, clear to auscultation bilaterally HEART: Tachycardic, regular rhythm, normal S1 and S2, no murmurs, rubs or gallops, peripheral pulses normal and equal bilaterally. ABDOMEN: Soft, vertical incision at umbilicus to pubic bone with roc, clean dry, intact. EXTREMITIES : Normal inspection, Normal range of motion, no edema. No clubbing or cyanosis. NEUROLOGICAL: Cranial nerves II through XII grossly intact. Normal speech, no focal sensorimotor deficits SKIN: Warm, Dry, normal turgor, no rashes or lesions noted Labs: CBC, BMP 02/20/18 07:02 02/20/18 07:02 Assessment/Plan ASSESSMENT 57 year old man with history of hypothyroidism, stage 1 colon cancer and post op fever who presents with new onset Afib with RVR asymptomatic. PLAN Cardiac - Pending CXR, ECHO, trop - Cardizem gtt 10mg/hr ID - Per ID: Zosyn day 3/7 for post op fever. Oncology - Dr. Ventura at bedside. Will take patient for Sue's procedure tomorrow if HR controlled. - Followed by pathology and oncology. Endo - Pending TSH trend for hypothyroidism
[2018-02-20] MEDS ORDERED: HYDROmorphone HCl 2 MG/ML VIAL IVPB PRN (20:08)
[2018-02-20] MEDS: LACTATED RINGERS SOLUTION 1,000 ML/1,000 ML INFUS.BAG IV SCH (21:37)
[2018-02-20] MEDS ORDERED: LACTATED RINGERS SOLUTION 1000 ML INFUS.BAG IV ONE (23:17)
[2018-02-21] MEDS: PIPERACILLIN/TAZOB 3.375 GM 3.375 GM in DEXTROSE 5%-WATER - 50 ML IVPB SCH ×2 (01:19→10:17)
[2018-02-21] MEDS ORDERED: PIPERACILLIN/TAZOBACTAM 3.375 GM VIAL IVPB ONE ×4 (05:43→17:45)
[2018-02-21] MEDS ORDERED: DEXTROSE 5%-WATER - 50 ML IVPB ONE ×2 (05:43→10:09)
[2018-02-21 06:06] LABS: SERUM IRON SATURATION 4 % (15-55); TOTAL IRON BINDING CAPACITY 257 ug/dL (250-450); UIBC 247 ug/dL (111-343)
[2018-02-21] MEDS: LEVOTHYROXINE SODIUM 100 MCG VIAL IVPUSH SCH (06:21)
[2018-02-21 06:32] LABS: HEMATOCRIT 32.2 % (35.4-49); HEMOGLOBIN 10.1 GM/dL (11.7-16.9); MCH 25.1 pg (25.7-33.7); MCHC 31.4 g/dl (32.0-35.9); MEAN PLT VOLUME 7.3 fl (7.5-11.1); PLATELET COUNT 240 K/MM3 (134-434); RBC 4.03 M/mm3 (4.00-5.60); WHITE BLOOD COUNT 6.8 K/mm3 (4.0-10.0)
[2018-02-21 06:46] LABS: INR 1.32 (0.83-1.09); PROTHROMBIN TIME (PATIENT) 15.6 SEC (9.7-13.0)
[2018-02-21 06:49] LABS: ACTIVATED PTT 33.6 SECONDS (25.2-36.5)
[2018-02-21 07:27] LABS: ALBUMIN 1.7 g/dl (3.4-5.0); ALK PHOS 61 U/L (45-117); ANION GAP 10 MMOL/L (8-16); BILIRUBIN,TOTAL 0.5 mg/dL (0.2-1); BLOOD UREA NITROGEN 14 mg/dL (7-18); CALCIUM 7.2 mg/dL (8.5-10.1); CHLORIDE 98 mmol/L (98-107); CO2 25 mmol/L (21-32); CREATININE 0.6 mg/dL (0.55-1.3); GLUCOSE,RANDOM 115 mg/dL (74-106); MAGNESIUM 2.3 mg/dL (1.8-2.4); PHOSPHOROUS 3.3 mg/dL (2.5-4.9); POTASSIUM 4.2 mmol/L (3.5-5.1); SGOT/AST 10 U/L (15-37); SGPT/ALT 19 U/L (13-61); SODIUM 133 mmol/L (136-145); TOT PROT 4.9 g/dl (6.4-8.2)
--- NOTE | 2018-02-21 07:39 | PN ---
Physical Exam: SUBJECTIVE: Patient seen and examined OBJECTIVE: Vital Signs Period Temp Pulse Resp BP Sys/Cavanaugh Pulse Ox Last 24 Hr 98.9 F-100.4 F 82-195 13-37 101-149/50-86 94-95 GENERAL: The patient is awake, alert, and fully oriented, in no acute distress. HEAD: Normal with no signs of trauma. EYES: PERRL, extraocular movements intact, sclera anicteric, conjunctiva clear. No ptosis. ENT: Ears normal, nares patent, oropharynx clear without exudates, moist mucous membranes. NECK: Trachea midline, full range of motion, supple. LUNGS: Breath sounds equal, clear to auscultation bilaterally, no wheezes, no crackles, no accessory muscle use. HEART: Regular rate and rhythm, S1, S2 without murmur, rub or gallop. ABDOMEN: Soft, nontender, nondistended, normoactive bowel sounds, no guarding, no rebound, no hepatosplenomegaly, no masses. EXTREMITIES: 2+ pulses, warm, well-perfused, no edema. NEUROLOGICAL: Cranial nerves II through XII grossly intact. Normal speech, gait not observed. PSYCH: Normal mood, normal affect. SKIN: Warm, dry, normal turgor, no rashes or lesions noted Laboratory Results - last 24 hr 02/19/18 02/20/18 02/20/18 06:15 07:02 07:02 WBC 6.3 RBC 4.48 Hgb 11.3 L Hct 36.2 MCV 80.9 MCH 25.2 L MCHC 31.1 L RDW 20.3 H Plt Count 262 MPV 7.2 L PT with INR INR PTT (Actin FS) Sodium 133 L Potassium 4.6 Chloride 98 Carbon Dioxide 27 Anion Gap 8 BUN 16 Creatinine 0.8 Creat Clearance w eGFR > 60 Random Glucose 129 H Calcium 7.6 L Phosphorus 3.0 Magnesium 2.2 Iron 10 L TIBC 257 Iron Saturation 4 L Total Bilirubin AST ALT Alkaline Phosphatase Troponin I Total Protein Albumin TSH 02/20/18 02/21/18 02/21/18 17:30 05:30 05:30 WBC 6.8 RBC 4.03 Hgb 10.1 L Hct 32.2 L MCV 80.0 MCH 25.1 L MCHC 31.4 L RDW 20.0 H Plt Count 240 MPV 7.3 L PT with INR INR PTT (Actin FS) Sodium 133 L Potassium 4.2 Chloride 98 Carbon Dioxide 25 Anion Gap 10 BUN 14 Creatinine 0.6 Creat Clearance w eGFR > 60 Random Glucose 115 H Calcium 7.2 L Phosphorus 3.3 Magnesium 2.3 Iron TIBC Iron Saturation Total Bilirubin 0.5 AST 10 L ALT 19 Alkaline Phosphatase 61 Troponin I < 0.02 Total Protein 4.9 L Albumin 1.7 L TSH 3.52 D 02/21/18 05:30 WBC RBC Hgb Hct MCV MCH MCHC RDW Plt Count MPV PT with INR 15.60 H INR 1.32 H PTT (Actin FS) 33.6 Sodium Potassium Chloride Carbon Dioxide Anion Gap BUN Creatinine Creat Clearance w eGFR Random Glucose Calcium Phosphorus Magnesium Iron TIBC Iron Saturation Total Bilirubin AST ALT Alkaline Phosphatase Troponin I Total Protein Albumin TSH Active Medications Generic Name Dose Route Start Last Admin Trade Name Freq PRN Reason Stop Dose Admin Acetaminophen 650 mg 02/14/18 20:21 02/19/18 17:46 Tylenol - PO 650 mg Q6H PRN Administration FEVER Amino Acids 30 ml 02/19/18 17:30 02/20/18 17:30 Prosource No Carb Liquid Pkt PO 30 ml BID@0800,1730 JERED Administration Hydromorphone HCl 2 mg 02/20/18 20:08 02/20/18 20:00 Dilaudid Vial - IVPB 2 mg Q6H PRN Administration PAIN LEVEL 6-10 Lactated Ringer's 1,000 ml in 1,000 mls @ 100 mls/hr 02/14/18 20:21 02/20/18 21:37 Lactated Ringers Solution IV 100 mls/hr ASDIR JERED Administration Piperacillin Sod/Tazobactam 50 mls @ 100 mls/hr 02/20/18 10:45 02/21/18 01:19 Sod 3.375 gm/ Dextrose IVPB 100 mls/hr Q8H-IV JERED Administration Protocol Diltiazem HCl 125 mg/ Sodium 125 mls @ 5 mls/hr 02/20/18 15:00 02/21/18 00:00 Chloride IVPB 0 mg/hr TITR JERED 0 mls/hr Titration Protocol 5 MG/HR Levothyroxine Sodium 75 mcg 02/15/18 07:00 02/21/18 06:21 Synthroid Injection - IVPUSH 75 mcg AM JERED Administration Multivitamins/Minerals/Vitamin C 1 tab 02/20/18 10:00 02/20/18 09:52 Tab-A-Vit - PO 1 tab DAILY JERED Administration Ondansetron HCl 4 mg 02/14/18 20:01 Zofran Injection IVPB Q8H PRN NAUSEA Pantoprazole Sodium 40 mg 02/15/18 10:00 02/20/18 09:51 Protonix Iv IVPUSH 40 mg DAILY JERED Administration Simethicone 80 mg 02/18/18 11:33 02/18/18 17:44 Mylicon - PO 80 mg Q4H PRN Administration GAS ASSESSMENT/PLAN:
--- NOTE | 2018-02-21 09:08 | PN ---
Progress Note, Physician Chief Complaint: no complaints of chest pain or sob, palpitations. telemetry now sinus tachycardia. History of Present Illness: 57 year old man with pmh hypothyroid recently dx colon mass admitted for resection, now POD 5 post surgery complaining of abdominal pain. CT scan with fluid collection underwent CT guided drainage. Found with afib with RVR no symptoms in CT scan. Transferred to ICU, started on Cardizem IV, converted to NSR, now off drip. Awaiting surgery. - Current Medication List Current Medications: Active Medications Acetaminophen (Tylenol -) 650 mg PO Q6H PRN PRN Reason: FEVER Last Admin: 02/19/18 17:46 Dose: 650 mg Amino Acids (Prosource No Carb Liquid Pkt) 30 ml PO BID@0800,1730 JERED Last Admin: 02/20/18 17:30 Dose: 30 ml Hydromorphone HCl (Dilaudid Vial -) 2 mg IVPB Q6H PRN PRN Reason: PAIN LEVEL 6-10 Last Admin: 02/20/18 20:00 Dose: 2 mg Lactated Ringer's (Lactated Ringers Solution) 1,000 ml in 1,000 mls @ 100 mls/ hr IV ASDIR JERED Last Admin: 02/20/18 21:37 Dose: 100 mls/hr Piperacillin Sod/Tazobactam (Sod 3.375 gm/ Dextrose) 50 mls @ 100 mls/hr IVPB Q8H-IV JERED; Protocol Last Admin: 02/21/18 01:19 Dose: 100 mls/hr Diltiazem HCl 125 mg/ Sodium (Chloride) 125 mls @ 5 mls/hr IVPB TITR JERED; Protocol Last Titration: 02/21/18 00:00 Dose: 0 mg/hr, 0 mls/hr Levothyroxine Sodium (Synthroid Injection -) 75 mcg IVPUSH AM [facility] Last Admin: 02/21/18 06:21 Dose: 75 mcg Multivitamins/Minerals/Vitamin C (Tab-A-Vit -) 1 tab PO DAILY [facility] Last Admin: 02/20/18 09:52 Dose: 1 tab Ondansetron HCl (Zofran Injection) 4 mg IVPB Q8H PRN PRN Reason: NAUSEA Pantoprazole Sodium (Protonix Iv) 40 mg IVPUSH DAILY [facility] Last Admin: 02/20/18 09:51 Dose: 40 mg Simethicone (Mylicon -) 80 mg PO Q4H PRN PRN Reason: GAS Last Admin: 02/18/18 17:44 Dose: 80 mg - Objective Vital Signs: Vital Signs Temperature 98.9 F 02/21/18 06:00 Pulse Rate 91 H 02/21/18 08:12 Respiratory Rate 20 02/21/18 08:12 Blood Pressure 101/73 02/21/18 08:12 O2 Sat by Pulse Oximetry (%) 94 L 02/20/18 21:00 Constitutional: Yes: No Distress, Calm Eyes: Yes: Conjunctiva Clear, EOM Intact HENT: Yes: Atraumatic, Normocephalic Neck: Yes: Supple, Trachea Midline Cardiovascular: Yes: Regular Rate and Rhythm, Tachycardia Respiratory: Yes: CTA Bilaterally Gastrointestinal: Yes: Hypoactive Bowel Sounds, Tenderness, Epigastrium Musculoskeletal: Yes: WNL Extremities: Yes: WNL Edema: No Peripheral Pulses WNL: Yes Labs: CBC, BMP 02/21/18 05:30 02/21/18 05:30 INR, PTT INR 1.32 (0.83-1.09) H 02/21/18 05:30 Assessment/Plan 57 year old man with pmh hypothyroid recently dx colon mass admitted for resection, now POD 5 post surgery complaining of abdominal pain. CT scan with fluid collection underwent drainage. Found with afib with RVR no symptoms in CT scan. Given IV dilt, converted to NSR. Awaiting surgery today. New paroxysmal atrial fibrillation -defer AC until surgically stable, may not need it. -If the patient is NPO at this point, can start IV dilt drip or IV propranolol 2mg IVSS q6h. -Echo when stable -KATJA negative -TFTs normal Preop Cardiac Evaluation -stable from cardiac standpoint for surgery. There are no cardiac contraindications to surgery. He is at intermediate risk of periop cardiac events.
--- NOTE | 2018-02-21 09:54 | PN ---
Progress Note, Physician - Current Medication List Current Medications: Active Medications Acetaminophen (Tylenol -) 650 mg PO Q6H PRN PRN Reason: FEVER Last Admin: 02/19/18 17:46 Dose: 650 mg Amino Acids (Prosource No Carb Liquid Pkt) 30 ml PO BID@0800,1730 [facility] Last Admin: 02/20/18 17:30 Dose: 30 ml Hydromorphone HCl (Dilaudid Vial -) 2 mg IVPB Q6H PRN PRN Reason: PAIN LEVEL 6-10 Last Admin: 02/20/18 20:00 Dose: 2 mg Lactated Ringer's (Lactated Ringers Solution) 1,000 ml in 1,000 mls @ 100 mls/ hr IV ASDIR JERED Last Admin: 02/20/18 21:37 Dose: 100 mls/hr Piperacillin Sod/Tazobactam (Sod 3.375 gm/ Dextrose) 50 mls @ 100 mls/hr IVPB Q8H-IV JERED; Protocol Last Admin: 02/21/18 01:19 Dose: 100 mls/hr Diltiazem HCl 125 mg/ Sodium (Chloride) 125 mls @ 5 mls/hr IVPB TITR JERED; Protocol Last Titration: 02/21/18 00:00 Dose: 0 mg/hr, 0 mls/hr Levothyroxine Sodium (Synthroid Injection -) 75 mcg IVPUSH AM [facility] Last Admin: 02/21/18 06:21 Dose: 75 mcg Multivitamins/Minerals/Vitamin C (Tab-A-Vit -) 1 tab PO DAILY [facility] Last Admin: 02/20/18 09:52 Dose: 1 tab Ondansetron HCl (Zofran Injection) 4 mg IVPB Q8H PRN PRN Reason: NAUSEA Pantoprazole Sodium (Protonix Iv) 40 mg IVPUSH DAILY [facility] Last Admin: 02/20/18 09:51 Dose: 40 mg Simethicone (Mylicon -) 80 mg PO Q4H PRN PRN Reason: GAS Last Admin: 02/18/18 17:44 Dose: 80 mg - Objective Vital Signs: Vital Signs Temperature 98.9 F 02/21/18 06:00 Pulse Rate 91 H 02/21/18 08:12 Respiratory Rate 20 02/21/18 08:12 Blood Pressure 101/73 02/21/18 08:12 O2 Sat by Pulse Oximetry (%) 94 L 02/20/18 21:00 Labs: CBC, BMP 02/21/18 05:30 02/21/18 05:30 INR, PTT INR 1.32 (0.83-1.09) H 02/21/18 05:30 Problem List - Problems (1) Abdominal pain Assessment/Plan: -S/P hemicolectomy -await official ct scan -drain in place -Surgical follow up -IV abx Code(s): R10.9 - UNSPECIFIED ABDOMINAL PAIN Qualifiers: Abdominal location: left lower quadrant Qualified Code(s): R10.32 - Left lower quadrant pain (2) Neoplasm of sigmoid colon Assessment/Plan: Pre-Operative Diagnosis: abdominal pain and sigmoid colon mass Operation: sigmoid colectomy Findings: sigmoid colon with mass, tatooed stitch ashraf proximal, side to side stapled anastomosis Post-Operative Diagnosis: Same as Pre-op Surgeon: Horacio Ventura diet and further plan per surgery Code(s): D49.0 - NEOPLASM OF UNSPECIFIED BEHAVIOR OF DIGESTIVE SYSTEM (3) Hypothyroid Assessment/Plan: -same iv synthroid while npo Code(s): E03.9 - HYPOTHYROIDISM, UNSPECIFIED (4) Afib Assessment/Plan: -Rate better today -Continue with meds -Cardio on board Code(s): I48.91 - UNSPECIFIED ATRIAL FIBRILLATION
[2018-02-21] MEDS: AMINO ACIDS/PROTEIN HYDROLYS 30 ML LIQUID.PKT PO SCH (10:10)
[2018-02-21] MEDS: MULTIVITAMINS (DAILY MVI) TABLET (FP) PO SCH (10:10)
[2018-02-21] MEDS ORDERED: ACETAMINOPHEN 1000 MG/100 ML VIAL (NON FORMULARY) IVPB PRN ×2 (10:16→19:04)
[2018-02-21] MEDS: PANTOPRAZOLE SODIUM 40 MG VIAL IVPUSH SCH (10:18)
--- NOTE | 2018-02-21 10:32 | EKG ---
Test Reason : Blood Pressure : / mmHG Vent. Rate : 161 BPM Atrial Rate : 441 BPM P-R Int : 000 ms QRS Dur : 094 ms QT Int : 276 ms P-R-T Axes : 000 058 022 degrees QTc Int : 451 ms ATRIAL FIBRILLATION WITH RAPID VENTRICULAR RESPONSE POSSIBLE INFERIOR INFARCT (CITED ON OR BEFORE 13-FEB-2018) ABNORMAL ECG WHEN COMPARED WITH ECG OF 13-FEB-2018 10:57, ATRIAL FIBRILLATION HAS REPLACED SINUS RHYTHM VENT. RATE HAS INCREASED BY 103 BPM T WAVE INVERSION NOW EVIDENT IN INFERIOR LEADS Confirmed by Live Avila MD ([id number]) on 02/21/2018 10:32:35 AM Referred By: Confirmed By:Live Avila MD
--- NOTE | 2018-02-21 12:03 | PN ---
Teaching Attending Note Name of Resident: Lilly Calvillo ATTENDING PHYSICIAN STATEMENT I saw and evaluated the patient. I reviewed the resident's note and discussed the case with the resident. I agree with the resident's findings and plan as documented. SUBJECTIVE: Patient seen and examined in the ICU. Now in NSR. No CP or SOB. For OR today. Intake & Output 02/18/18 02/19/18 02/20/18 02/21/18 23:59 23:59 23:59 23:59 Intake Total 2970 2800 1825 3250 Output Total 875 428 0582 850 Balance 2770 2500 -475 2400 Last Vital Signs Temp Pulse Resp BP Pulse Ox 102.8 F H 105 H 20 123/71 94 L 02/21/18 10:00 02/21/18 10:00 02/21/18 10:00 02/21/18 10:00 02/20/18 21:00 Active Medications Acetaminophen (Ofirmev Injection -) 1,000 mg IVPB Q6H PRN PRN Reason: FEVER Last Admin: 02/21/18 10:39 Dose: 1,000 mg Amino Acids (Prosource No Carb Liquid Pkt) 30 ml PO BID@0800,1730 JERED Last Admin: 02/21/18 10:10 Dose: Not Given Hydromorphone HCl (Dilaudid Vial -) 2 mg IVPB Q6H PRN PRN Reason: PAIN LEVEL 6-10 Last Admin: 02/20/18 20:00 Dose: 2 mg Lactated Ringer's (Lactated Ringers Solution) 1,000 ml in 1,000 mls @ 100 mls/ hr IV ASDIR JERED Last Admin: 02/20/18 21:37 Dose: 100 mls/hr Piperacillin Sod/Tazobactam (Sod 3.375 gm/ Dextrose) 50 mls @ 100 mls/hr IVPB Q8H-IV JERED; Protocol Last Admin: 02/21/18 10:17 Dose: 100 mls/hr Diltiazem HCl 125 mg/ Sodium (Chloride) 125 mls @ 5 mls/hr IVPB TITR JERED; Protocol Last Titration: 02/21/18 00:00 Dose: 0 mg/hr, 0 mls/hr Levothyroxine Sodium (Synthroid Injection -) 75 mcg IVPUSH AM JERED Last Admin: 02/21/18 06:21 Dose: 75 mcg Multivitamins/Minerals/Vitamin C (Tab-A-Vit -) 1 tab PO DAILY JERED Last Admin: 02/21/18 10:10 Dose: Not Given Ondansetron HCl (Zofran Injection) 4 mg IVPB Q8H PRN PRN Reason: NAUSEA Pantoprazole Sodium (Protonix Iv) 40 mg IVPUSH DAILY JERED Last Admin: 02/21/18 10:18 Dose: 40 mg Simethicone (Mylicon -) 80 mg PO Q4H PRN PRN Reason: GAS Last Admin: 02/18/18 17:44 Dose: 80 mg GENERAL: Awake, alert, and fully oriented, in no acute distress HEAD: No signs of trauma, normocephalic, atraumatic EYES: PERRLA, EOMI, sclera anicteric, conjunctiva clear ENT: oropharynx clear without exudates. Moist mucosa NECK: Normal ROM, supple LUNGS: No distress, speaks full sentences, clear to auscultation bilaterally HEART: regular rhythm, normal S1 and S2, no murmurs, rubs or gallops, peripheral pulses normal and equal bilaterally. ABDOMEN: Soft, vertical incision at umbilicus to pubic bone with roc, clean dry, intact. EXTREMITIES : Normal inspection, Normal range of motion, no edema. No clubbing or cyanosis. NEUROLOGICAL: Non-focal SKIN: Warm, Dry, normal turgor, no rashes or lesions noted Labs: Laboratory Results - last 24 hr 02/19/18 02/20/18 02/21/18 06:15 17:30 05:30 WBC 6.8 RBC 4.03 Hgb 10.1 L Hct 32.2 L MCV 80.0 MCH 25.1 L MCHC 31.4 L RDW 20.0 H Plt Count 240 MPV 7.3 L PT with INR INR PTT (Actin FS) Sodium Potassium Chloride Carbon Dioxide Anion Gap BUN Creatinine Creat Clearance w eGFR Random Glucose Calcium Phosphorus Magnesium Iron 10 L TIBC 257 Iron Saturation 4 L Total Bilirubin AST ALT Alkaline Phosphatase Troponin I < 0.02 Total Protein Albumin TSH Blood Type Antibody Screen 02/21/18 02/21/18 02/21/18 05:30 05:30 05:30 WBC RBC Hgb Hct MCV MCH MCHC RDW Plt Count MPV PT with INR 15.60 H INR 1.32 H PTT (Actin FS) 33.6 Sodium 133 L Potassium 4.2 Chloride 98 Carbon Dioxide 25 Anion Gap 10 BUN 14 Creatinine 0.6 Creat Clearance w eGFR > 60 Random Glucose 115 H Calcium 7.2 L Phosphorus 3.3 Magnesium 2.3 Iron TIBC Iron Saturation Total Bilirubin 0.5 AST 10 L ALT 19 Alkaline Phosphatase 61 Troponin I Total Protein 4.9 L Albumin 1.7 L TSH 3.52 D Blood Type O POSITIVE Antibody Screen Negative Assessment/Plan New onset AFib, now in NSR Stage 1 colon CA Hypothyroidism Rate control per Cardiology IVF For OR today ABX per ID Cardiac Telemetry monitoring Dr Rojo
--- NOTE | 2018-02-21 12:28 | PN ---
Physical Exam: SUBJECTIVE: Patient seen and examined Patient with abdominal pain overnight, required 2mg dilaudid [place] drain with over 1L of purulent fecal fluid Patient feels somewhat improved. Denies chest pain, shortness of breath, or current abdominal pain OBJECTIVE: Vital Signs Period Temp Pulse Resp BP Sys/Cavanaugh Pulse Ox Last 24 Hr 98.9 F-102.8 F 82-195 13-37 100-149/50-86 94-95 GENERAL: Awake, alert, and fully oriented, in no acute distress HEAD: No signs of trauma, normocephalic, atraumatic EYES: PERRLA, EOMI, sclera anicteric, conjunctiva clear ENT: oropharynx clear without exudates. Moist mucosa NECK: Normal ROM, supple LUNGS: No distress, speaks full sentences, clear to auscultation bilaterally HEART: Tachycardic, regular rhythm, normal S1 and S2, no murmurs, rubs or gallops, peripheral pulses normal and equal bilaterally. ABDOMEN: Soft, vertical incision at umbilicus to pubic bone with roc, clean dry, intact. Drain with brown purulence EXTREMITIES : Normal inspection, Normal range of motion, no edema. No clubbing or cyanosis. NEUROLOGICAL: Cranial nerves II through XII grossly intact. Normal speech, no focal sensorimotor deficits SKIN: Warm, Dry, normal turgor, no rashes or lesions noted Laboratory Results - last 24 hr 02/19/18 02/20/18 02/21/18 06:15 17:30 05:30 WBC 6.8 RBC 4.03 Hgb 10.1 L Hct 32.2 L MCV 80.0 MCH 25.1 L MCHC 31.4 L RDW 20.0 H Plt Count 240 MPV 7.3 L PT with INR INR PTT (Actin FS) Sodium Potassium Chloride Carbon Dioxide Anion Gap BUN Creatinine Creat Clearance w eGFR Random Glucose Calcium Phosphorus Magnesium Iron 10 L TIBC 257 Iron Saturation 4 L Total Bilirubin AST ALT Alkaline Phosphatase Troponin I < 0.02 Total Protein Albumin TSH Blood Type Antibody Screen 02/21/18 02/21/18 02/21/18 05:30 05:30 05:30 WBC RBC Hgb Hct MCV MCH MCHC RDW Plt Count MPV PT with INR 15.60 H INR 1.32 H PTT (Actin FS) 33.6 Sodium 133 L Potassium 4.2 Chloride 98 Carbon Dioxide 25 Anion Gap 10 BUN 14 Creatinine 0.6 Creat Clearance w eGFR > 60 Random Glucose 115 H Calcium 7.2 L Phosphorus 3.3 Magnesium 2.3 Iron TIBC Iron Saturation Total Bilirubin 0.5 AST 10 L ALT 19 Alkaline Phosphatase 61 Troponin I Total Protein 4.9 L Albumin 1.7 L TSH 3.52 D Blood Type O POSITIVE Antibody Screen Negative Active Medications Generic Name Dose Route Start Last Admin Trade Name Freq PRN Reason Stop Dose Admin Acetaminophen 1,000 mg 02/21/18 10:16 02/21/18 10:39 Ofirmev Injection - IVPB 1,000 mg Q6H PRN Administration FEVER Amino Acids 30 ml 02/19/18 17:30 02/21/18 10:10 Prosource No Carb Liquid Pkt PO Not Given BID@0800,1730 JERED Hydromorphone HCl 2 mg 02/20/18 20:08 02/20/18 20:00 Dilaudid Vial - IVPB 2 mg Q6H PRN Administration PAIN LEVEL 6-10 Lactated Ringer's 1,000 ml in 1,000 mls @ 100 mls/hr 02/14/18 20:21 02/20/18 21:37 Lactated Ringers Solution IV 100 mls/hr ASDIR JERED Administration Piperacillin Sod/Tazobactam 50 mls @ 100 mls/hr 02/20/18 10:45 02/21/18 10:17 Sod 3.375 gm/ Dextrose IVPB 100 mls/hr Q8H-IV JERED Administration Protocol Diltiazem HCl 125 mg/ Sodium 125 mls @ 5 mls/hr 02/20/18 15:00 02/21/18 00:00 Chloride IVPB 0 mg/hr TITR JERED 0 mls/hr Titration Protocol 5 MG/HR Levothyroxine Sodium 75 mcg 02/15/18 07:00 02/21/18 06:21 Synthroid Injection - IVPUSH 75 mcg AM JERED Administration Multivitamins/Minerals/Vitamin C 1 tab 02/20/18 10:00 02/21/18 10:10 Tab-A-Vit - PO Not Given DAILY JERED Ondansetron HCl 4 mg 02/14/18 20:01 Zofran Injection IVPB Q8H PRN NAUSEA Pantoprazole Sodium 40 mg 02/15/18 10:00 02/21/18 10:18 Protonix Iv IVPUSH 40 mg DAILY JERED Administration Simethicone 80 mg 02/18/18 11:33 02/18/18 17:44 Mylicon - PO 80 mg Q4H PRN Administration GAS ASSESSMENT/PLAN: ASSESSMENT 57 year old man with history of hypothyroidism, stage 1 colon cancer and post op fever who presented with new onset Afib with RVR but was asymptomatic. HR improved to 90s off of cardizem drip, patient in sinus rhythm. Pending OR today for Sue procedure. PLAN Cardiac - ECHO pending - cardizem gtt d/c, rhythm sinus at rate of 80-90 ID - Per ID: Zosyn day 07/09 Oncology - OR for Sue today - Followed by pathology and oncology. Endo - TSH within normal - Levothyroxine home med Visit type - Emergency Visit Emergency Visit: No - New Patient This patient is new to me today: No - Critical Care Critical Care patient: No
--- NOTE | 2018-02-21 12:56 | ECHO ---
Name: AGUSTO HUSSEIN Exam:Adult Echocardiogram Study Date: 02/21/2018 09:47 AM Age: 57 yrs Reason For Study: NEW ONSET OF ATRIAL FIBRILLATION W/RVR Height: 63 in Weight: 185 lb BSA: 1.9 m2 BP: 110/67 mmHg MMode/2D Measurements & Calculations IVSd: 0.83 cm LA dimension: 4.4 cm LVIDd: 4.4 cm LVIDs: 3.2 cm LVPWd: 0.83 cm EDV(Teich): 89.9 ml TAPSE: 2.4 cm ESV(Teich): 40.0 ml Doppler Measurements & Calculations MV E max jake: 75.0 cm/sec Ao V2 max: 184.6 cm/sec MV A max jake: 92.8 cm/sec Ao max P.6 mmHg MV E/A: 0.81 MV dec time: 0.20 sec LV V1 max P.3 mmHg TR max jake: 288.3 cm/sec LV V1 max: 104.1 cm/sec TR max P.3 mmHg Med Peak E' Jake: 8.2 cm/sec Med E/e': 9.2 Lat Peak E' Jake: 11.5 cm/sec Lat E/e': 6.5 Procedure A complete two-dimensional transthoracic echocardiogram was performed (2D, M-mode, Doppler and color flow Doppler). Left Ventricle The left ventricular size, thickness and function are normal. Ejection Fraction = 65%. The transmitra l spectral Doppler flow pattern is suggestive of impaired LV relaxation. The left ventricular wall maisha on is normal. Right Ventricle The right ventricle is normal in size and function. Atria The left atrium is mildly dilated. Right atrial size is normal. Mitral Valve There is mild mitral valve thickening. There is trace to mild mitral regurgitation. Tricuspid Valve The tricuspid valve is not well visualized, but is grossly normal. There is mild tricuspid regurgitat ion. Right ventricular systolic pressure is elevated at 38 mmhg. Assuming the RA pressure is 5 mmHg. Aortic Valve There is mild aortic valve thickening. No aortic regurgitation is present. Pulmonic Valve The pulmonic valve is not well seen, but is grossly normal. Great Vessels The aortic root is normal size. Pericardium/Pleura There is no pericardial effusion. There is no pleural effusion. Interpretation Summary The left ventricular size, thickness and function are normal Ejection Fraction = 65%. The right ventricle is normal in size and function. There is mild mitral valve thickening. There is trace to mild mitral regurgitation. There is mild tricuspid regurgitation. Right ventricular systolic pressure is elevated at 38 mmhg. Assuming the RA pressure is 5 mmHg There is mild aortic valve thickening. MD Live Avila 02/21/2018 12:55 PM
--- NOTE | 2018-02-21 13:39 | PN ---
Progress Note, Physician History of Present Illness: events noted patient transferred to icu post drainage of the collection currently stable plan to retake to surgery now in nsr - Current Medication List Current Medications: Active Medications Acetaminophen (Ofirmev Injection -) 1,000 mg IVPB Q6H PRN PRN Reason: FEVER Last Admin: 02/21/18 10:39 Dose: 1,000 mg Amino Acids (Prosource No Carb Liquid Pkt) 30 ml PO BID@0800,1730 [facility] Last Admin: 02/21/18 10:10 Dose: Not Given Hydromorphone HCl (Dilaudid Vial -) 2 mg IVPB Q6H PRN PRN Reason: PAIN LEVEL 6-10 Last Admin: 02/20/18 20:00 Dose: 2 mg Lactated Ringer's (Lactated Ringers Solution) 1,000 ml in 1,000 mls @ 100 mls/ hr IV ASDIR JERED Last Admin: 02/20/18 21:37 Dose: 100 mls/hr Piperacillin Sod/Tazobactam (Sod 3.375 gm/ Dextrose) 50 mls @ 100 mls/hr IVPB Q8H-IV JERED; Protocol Last Admin: 02/21/18 10:17 Dose: 100 mls/hr Diltiazem HCl 125 mg/ Sodium (Chloride) 125 mls @ 5 mls/hr IVPB TITR JERED; Protocol Last Titration: 02/21/18 00:00 Dose: 0 mg/hr, 0 mls/hr Levothyroxine Sodium (Synthroid Injection -) 75 mcg IVPUSH AM [facility] Last Admin: 02/21/18 06:21 Dose: 75 mcg Multivitamins/Minerals/Vitamin C (Tab-A-Vit -) 1 tab PO DAILY [facility] Last Admin: 02/21/18 10:10 Dose: Not Given Ondansetron HCl (Zofran Injection) 4 mg IVPB Q8H PRN PRN Reason: NAUSEA Pantoprazole Sodium (Protonix Iv) 40 mg IVPUSH DAILY [facility] Last Admin: 02/21/18 10:18 Dose: 40 mg Simethicone (Mylicon -) 80 mg PO Q4H PRN PRN Reason: GAS Last Admin: 02/18/18 17:44 Dose: 80 mg - Objective Vital Signs: Vital Signs Temperature 99.2 F 02/21/18 12:10 Pulse Rate 90 02/21/18 12:10 Respiratory Rate 20 02/21/18 12:10 Blood Pressure 100/70 02/21/18 12:10 O2 Sat by Pulse Oximetry (%) 94 L 02/21/18 13:03 Constitutional: Yes: No Distress, Calm Cardiovascular: Yes: Regular Rate and Rhythm Respiratory: Yes: Regular, CTA Bilaterally Gastrointestinal: Yes: Distention, Hypoactive Bowel Sounds Musculoskeletal: Yes: WNL Extremities: Yes: WNL Neurological: Yes: Alert, Oriented Psychiatric: Yes: Alert, Oriented Labs: CBC, BMP 02/21/18 05:30 02/21/18 05:30 INR, PTT INR 1.32 (0.83-1.09) H 02/21/18 05:30 - ....Imaging Cat Scan: Report Reviewed, Image Reviewed Assessment/Plan Problem List - Problems (1) Neoplasm of sigmoid colon Code(s): D49.0 - NEOPLASM OF UNSPECIFIED BEHAVIOR OF DIGESTIVE SYSTEM (2) Sigmoid thickening Code(s): K63.9 - DISEASE OF INTESTINE, UNSPECIFIED (3) Abdominal pain Code(s): R10.9 - UNSPECIFIED ABDOMINAL PAIN Qualifiers: Abdominal location: left lower quadrant Qualified Code(s): R10.32 - Left lower quadrant pain (4) Abnormal colonoscopy Code(s): R93.3 - ABNORMAL FINDINGS ON DX IMAGING OF PRT DIGESTIVE TRACT plan continue abx patient to go back to or close monitoring rest as per icu monitor heart rate cc 40 min
[2018-02-21] MEDS ORDERED: ONDANSETRON 4 MG/2 ML VIAL IVPUSH PRN ×2 (13:43→18:48)
[2018-02-21] MEDS ORDERED: LACTATED RINGERS SOLUTION 1,000 ML IV SCH ×2 (13:45→19:00)
[2018-02-21] MEDS ORDERED: fentaNYL CITRATE 250 MCG/5 ML VIAL ONE (13:53)
[2018-02-21] MEDS ORDERED: ROCURONIUM BROMIDE 50 MG/5 ML VIAL ONE ×3 (13:54→16:28)
[2018-02-21] MEDS ORDERED: KETAMINE HCL 200 MG/20 ML VIAL ONE (13:54)
[2018-02-21] MEDS ORDERED: BENZOIN TINCTURE SWABSTICK TP ONE (13:58)
--- NOTE | 2018-02-21 14:17 | PN ---
Progress Note (short form) - Note Progress Note: Patient seen and examined by me at bedside in the ICU. Patient overnight had abdominal pain with [place] drainage over 1L of purulent fecal fluid. Patient to be taken back to the OR by Dr. Ventura today. Vital Signs Temperature 99.2 F 02/21/18 12:10 Pulse Rate 90 02/21/18 12:10 Respiratory Rate 20 02/21/18 12:10 Blood Pressure 100/70 02/21/18 12:10 O2 Sat by Pulse Oximetry (%) 94 L 02/21/18 13:03 GENERAL: Awake, alert, and fully oriented, in no acute distress ENT: oropharynx clear without exudates. Moist mucous membranes LUNGS: CTA bilaterally with no accessory muscle use HEART: Tachycardic, regular rhythm ABDOMEN: Soft, vertical incision at umbilicus to pubic bone with roc, clean dry, intact. EXTREMITIES : No peripheral edema. NEUROLOGICAL: Normal speech, no focal sensorimotor deficits SKIN: Warm, Dry, normal turgor, no rashes or lesions noted CBC, BMP 02/21/18 05:30 02/19/18 02/19/18 02/21/18 06:15 06:15 05:30 PT with INR INR PTT (Actin FS) Iron 10 L TIBC 257 Iron Saturation 4 L Ferritin 95.6 Total Bilirubin 0.5 AST 10 L ALT 19 Total Protein 4.9 L Albumin 1.7 L 02/21/18 05:30 PT with INR 15.60 H INR 1.32 H PTT (Actin FS) 33.6 Iron TIBC Iron Saturation Ferritin Total Bilirubin AST ALT Total Protein Albumin Patient is a 57 year old male who presented with left sided abdominal pain and was found to have a sigmoid mass. Patient s/p sigmoidectomy on 02/15/18. Patient found to have stage 1 colon cancer with moderately differentiated adenocarcinoma. Problem List: Stage 1 Colon Cancer New Onset Atrial Fibrillation Hypothyroidism PLAN: -Pathology with moderately differentiated adenocarcinoma, 4.3 cm with invasion of muscularis propria but no perineural or lymphovascular invasion; negative margins and lymph nodes, pT2N0. Patient has stage I colon cancer which does not need adjuvant treatment. -Rate control, as per ICU and cardiology team
[2018-02-21] MEDS ORDERED: LIDOCAINE HCL 2% 100 MG/5 ML DISP.SYRIN ONE (14:29)
[2018-02-21] MEDS ORDERED: HYDROmorphone HCl 2 MG/ML VIAL ONE (14:57)
[2018-02-21] MEDS ORDERED: dilTIAZem HCL 25 MG/5 ML - 5 ML VIAL IV ONE (15:00)
[2018-02-21] MEDS ORDERED: DILTIAZEM INJECTION 125 MG in SODIUM CHLORIDE 100 ML IVPB SCH (15:00)
[2018-02-21] MEDS ORDERED: HYDROmorphone *PCA* 10MG/50ML DISP.SYRIN PCA SCH (15:00)
[2018-02-21] MEDS ORDERED: METOPROLOL TARTRATE 5 MG/5 ML VIAL ONE (15:42)
[2018-02-21] MEDS ORDERED: BACITRACIN 50,000 UNITS VIAL TP ONE (17:04)
[2018-02-21] MEDS ORDERED: GLYCOPYRROLATE 0.2 MG/1 ML VIAL ONE ×2 (18:05→18:06)
[2018-02-21] MEDS ORDERED: NEOSTIGMINE METHYLSULFATE 0.5 MG/ML - 10 ML MDV ONE (18:06)
[2018-02-21] MEDS ORDERED: PROMETHAZINE HCL 25 MG/1 ML VIAL IVPB PRN (18:48)
--- NOTE | 2018-02-21 19:00 | OP ---
Operative Note - Note: Operative Date: 02/21/18 Pre-Operative Diagnosis: Acute abdomen, feculent peritonitis Operation: exploratory lapartotomy, abdominal washout, completion left colectomy , end colostomy (transverse colon) Findings: feculent peritonitis limited to left abdominal contamination by omentum. stapled anastomosis was intact, there was a perforated diverticulum distal on the rectal stump. irrigated with 6 liters. end transverse colostomy created in LUQ. all counts correct. Post-Operative Diagnosis: Other (Perforated diverticulitis distal rectal stump) Surgeon: Horacio Ventura Science Faculty Member: Cheo Singh Anesthesiologist/CHECKMAN: Justine Agrawal Anesthesia: General Estimated Blood Loss (mls): 250 Drains & Tubes with Location: 350 feculent peritoneal ascites aspirated upon opening the abdomen Blood Volume Replaced (mls): 350 (PRBC) Fluid Volume Replaced (mls): 5,000 (crystalloid ) Operative Report Dictated: Yes
[2018-02-21] MEDS ORDERED: SIMETHICONE 80 MG TAB.CHEW (FP) PO PRN (19:04)
[2018-02-21] MEDS ORDERED: LACTATED RINGERS SOLUTION 1,000 ML/1,000 ML INFUS.BAG IV SCH (19:15)
[2018-02-21 20:54] LABS: MEAN PLT VOLUME 7.6 fl (7.5-11.1)
[2018-02-21 21:00] LABS: HEMATOCRIT 34.9 % (35.4-49); HEMOGLOBIN 11.9 GM/dL (11.7-16.9); MEAN CELL VOLUME 79.4 fl (80-96); PLATELET COUNT 267 K/MM3 (134-434); RBC 4.39 M/mm3 (4.00-5.60); RDW 19.7 % (11.9-15.9); WHITE BLOOD COUNT 6.4 K/mm3 (4.0-10.0)
[2018-02-21] MEDS ORDERED: SODIUM CHLORIDE 1,000 ML IV STA (21:10)
[2018-02-21 21:11] LABS: INR 1.33 (0.83-1.09); PROTHROMBIN TIME (PATIENT) 15.7 SEC (9.7-13.0)
[2018-02-21 21:25] LABS: ALBUMIN 1.2 g/dl (3.4-5.0); ALK PHOS 56 U/L (45-117); ANION GAP 10 MMOL/L (8-16); BILIRUBIN,TOTAL 3.6 mg/dL (0.2-1); BLOOD UREA NITROGEN 17 mg/dL (7-18); CHLORIDE 104 mmol/L (98-107); CO2 22 mmol/L (21-32); CREATININE 0.8 mg/dL (0.55-1.3); GLUCOSE,RANDOM 138 mg/dL (74-106); POTASSIUM 4.9 mmol/L (3.5-5.1); SGOT/AST 15 U/L (15-37); SGPT/ALT 15 U/L (13-61); SODIUM 136 mmol/L (136-145); TOT PROT 3.8 g/dl (6.4-8.2)
[2018-02-21 21:27] LABS: ALLENS TEST POSITIVE; ARTERIAL BLD GAS O2 SATURATION 97.3 % (90-98.9); ARTERIAL BLOOD GAS BASE EXCESS -1.1 meq/l (-2-2); ARTERIAL BLOOD GAS PCO2 36.8 mmHg (35-45); ARTERIAL BLOOD GAS pH 7.41 (7.35-7.45)
[2018-02-21] MEDS: MUPIROCIN 2% TOPICAL OINTMENT FOR DECOLONIZATION NS SCH (21:36)
[2018-02-21 21:45] LABS: CALCIUM 6.3 mg/dL (8.5-10.1)
[2018-02-21] MEDS ORDERED: CHLORHEXIDINE GLUCONATE 4% CLEANSER FOR DECOLONIZATION TP SCH (22:00)
[2018-02-21] MEDS ORDERED: HYDROmorphone HCl 2 MG/ML VIAL IVPB PRN (22:04)
[2018-02-21 23:00] LABS: ANISOCYTOSIS 1+; MACROCYTOSIS 1+; PLATELET ESTIMATE ADEQUATE
[2018-02-22] MEDS ORDERED: PIPERACILLIN/TAZOBACTAM 3.375 GM VIAL IVPB ONE ×3 (01:24→17:07)
[2018-02-22] MEDS ORDERED: DEXTROSE 5%-WATER - 50 ML IVPB ONE ×3 (01:24→17:07)
[2018-02-22] MEDS: PIPERACILLIN/TAZOB 3.375 GM 3.375 GM in DEXTROSE 5%-WATER - 50 ML IVPB SCH ×3 (01:25→17:29)
[2018-02-22] MEDS ORDERED: PT OWN MED DRAWER 7, Y5N ONE (06:15)
[2018-02-22 06:22] LABS: HEMATOCRIT 33.7 % (35.4-49); LYMPH % 3.6 % (8-40); MCH 26.1 pg (25.7-33.7); MCHC 32.5 g/dl (32.0-35.9); MEAN CELL VOLUME 80.2 fl (80-96); MEAN PLT VOLUME 7.4 fl (7.5-11.1); NEUT % 87.4 % (42.8-82.8); PLATELET COUNT 252 K/MM3 (134-434); RBC 4.21 M/mm3 (4.00-5.60); WHITE BLOOD COUNT 7.3 K/mm3 (4.0-10.0)
[2018-02-22 06:54] LABS: ALBUMIN 1.2 g/dl (3.4-5.0); ALK PHOS 54 U/L (45-117); ANION GAP 8 MMOL/L (8-16); BILIRUBIN,TOTAL 2.7 mg/dL (0.2-1); BLOOD UREA NITROGEN 20 mg/dL (7-18); CHLORIDE 105 mmol/L (98-107); CO2 24 mmol/L (21-32); GLUCOSE,RANDOM 168 mg/dL (74-106); MAGNESIUM 2.3 mg/dL (1.8-2.4); PHOSPHOROUS 3.4 mg/dL (2.5-4.9); POTASSIUM 4.9 mmol/L (3.5-5.1); SGOT/AST 23 U/L (15-37); SGPT/ALT 19 U/L (13-61); SODIUM 137 mmol/L (136-145)
[2018-02-22] MEDS ORDERED: LEVOTHYROXINE SODIUM 100 MCG VIAL IVPUSH SCH (07:00)
[2018-02-22] MEDS ORDERED: AMINO ACIDS/PROTEIN HYDROLYS 30 ML LIQUID.PKT PO SCH ×2 (08:00→17:30)
[2018-02-22 08:06] LABS: CALCIUM 6.4 mg/dL (8.5-10.1)
[2018-02-22] MEDS ORDERED: LACTATED RINGERS SOLUTION 1,000 ML/1,000 ML INFUS.BAG IV SCH ×3 (08:15→13:34)
[2018-02-22] MEDS ORDERED: PANTOPRAZOLE SODIUM 40 MG VIAL IVPUSH SCH (10:00)
[2018-02-22] MEDS ORDERED: MULTIVITAMINS (DAILY MVI) TABLET (FP) PO SCH (10:00)
--- NOTE | 2018-02-22 10:04 | PN ---
Progress Note (short form) - Note Progress Note: ANESTHESIOLOGY POST-OP CHECK 57M s/p ex-lap, left hemicolectomy under general anesthesia, POD #1. No acute complaints. Pain 5/10 and tolerable. Denies N/V. Says is hungry. Vital Signs Temperature 99 F 02/22/18 06:00 Pulse Rate 100 H 02/22/18 08:01 Respiratory Rate 25 H 02/22/18 08:01 Blood Pressure 123/81 02/22/18 08:01 O2 Sat by Pulse Oximetry (%) 100 02/22/18 08:01 Active Medications Acetaminophen (Ofirmev Injection -) 1,000 mg IVPB Q6H PRN PRN Reason: FEVER Amino Acids (Prosource No Carb Liquid Pkt) 30 ml PO BID@0800,1730 [facility] Chlorhexidine Gluconate (Hibiclens For Decolonization -) 1 applic TP HS JERED Last Admin: 02/21/18 21:36 Dose: 1 applic Diphenhydramine HCl (Benadryl Injection -) 12.5 mg IVPUSH ONCE PRN PRN Reason: FOR ITCHING Hydromorphone HCl (Dilaudid Vial -) 2 mg IVPB Q6H PRN PRN Reason: PAIN LEVEL 6-10 Last Admin: 02/22/18 01:03 Dose: 2 mg Diltiazem HCl 125 mg/ Sodium (Chloride) 125 mls @ 5 mls/hr IVPB TITR JERED; Protocol Last Admin: 02/21/18 21:25 Dose: Not Given Piperacillin Sod/Tazobactam (Sod 3.375 gm/ Dextrose) 50 mls @ 100 mls/hr IVPB Q8H-IV JERED; Protocol Last Admin: 02/22/18 01:25 Dose: 100 mls/hr Lactated Ringer's (Lactated Ringers Solution) 1,000 ml in 1,000 mls @ 200 mls/ hr IV ASDIR JERED Last Admin: 02/21/18 19:15 Dose: 200 mls/hr Levothyroxine Sodium (Synthroid Injection -) 75 mcg IVPUSH AM [facility] Last Admin: 02/22/18 06:43 Dose: 75 mcg Mupirocin (Bactroban Ointment (For Decolonization) -) 1 applic NS BID JERED Stop: 02/26/18 21:59 Last Admin: 02/21/18 21:36 Dose: 1 applic Pantoprazole Sodium (Protonix Iv) 40 mg IVPUSH DAILY [facility] Promethazine HCl (Phenergan Injection -) 12.5 mg IVPB Q6H PRN PRN Reason: NAUSEA-FOR RESCUE AFTER 15 MIN Gen: awake, alert, NAD No apparent anesthesia complications. Pain controlled. Continue managment as per primary team.
--- NOTE | 2018-02-22 10:13 | PN ---
Progress Note, Physician Chief Complaint: abdominal pain and colon mass History of Present Illness: 57 yo male presenting to [facility] ER via private auto complaining of occasional lower left abdominal discomfort. stable post operatively. Plan for re= evaluation of anastomosis - Current Medication List Current Medications: Active Medications Acetaminophen (Ofirmev Injection -) 1,000 mg IVPB Q6H PRN PRN Reason: FEVER Amino Acids (Prosource No Carb Liquid Pkt) 30 ml PO BID@0800,1730 [facility] Chlorhexidine Gluconate (Hibiclens For Decolonization -) 1 applic TP HS [facility] Last Admin: 02/21/18 21:36 Dose: 1 applic Diphenhydramine HCl (Benadryl Injection -) 12.5 mg IVPUSH ONCE PRN PRN Reason: FOR ITCHING Hydromorphone HCl (Dilaudid Vial -) 2 mg IVPB Q6H PRN PRN Reason: PAIN LEVEL 6-10 Last Admin: 02/22/18 01:03 Dose: 2 mg Diltiazem HCl 125 mg/ Sodium (Chloride) 125 mls @ 5 mls/hr IVPB TITR JERED; Protocol Last Admin: 02/21/18 21:25 Dose: Not Given Piperacillin Sod/Tazobactam (Sod 3.375 gm/ Dextrose) 50 mls @ 100 mls/hr IVPB Q8H-IV JERED; Protocol Last Admin: 02/22/18 01:25 Dose: 100 mls/hr Lactated Ringer's (Lactated Ringers Solution) 1,000 ml in 1,000 mls @ 200 mls/ hr IV ASDIR [facility] Last Admin: 02/21/18 19:15 Dose: 200 mls/hr Levothyroxine Sodium (Synthroid Injection -) 75 mcg IVPUSH AM [facility] Last Admin: 02/22/18 06:43 Dose: 75 mcg Mupirocin (Bactroban Ointment (For Decolonization) -) 1 applic NS BID [facility] Stop: 02/26/18 21:59 Last Admin: 02/21/18 21:36 Dose: 1 applic Pantoprazole Sodium (Protonix Iv) 40 mg IVPUSH DAILY [facility] Promethazine HCl (Phenergan Injection -) 12.5 mg IVPB Q6H PRN PRN Reason: NAUSEA-FOR RESCUE AFTER 15 MIN - Objective Vital Signs: Vital Signs Temperature 99 F 02/22/18 06:00 Pulse Rate 100 H 02/22/18 08:01 Respiratory Rate 25 H 02/22/18 08:01 Blood Pressure 123/81 02/22/18 08:01 O2 Sat by Pulse Oximetry (%) 100 02/22/18 08:01 Vital Signs Period Temp Pulse Resp BP Sys/Cavanaugh Pulse Ox Last 24 Hr 99 F-99.3 F 87-107 17-25 99-123/49-81 94-100 Intake & Output 02/21/18 02/22/18 02/22/18 23:59 07:59 15:59 Intake Total 350 3246 Output Total 650 450 Balance -300 2796 Weight 197 lb 5.019 oz Intake: IV 3246 LACTATED RINGERS SOLUTION 3246 1,000 ml In 1,000 ml @ 200 mls/hr IV ASDIR JERED Rx#:[id number] Blood Product 350 Output: Urine 400 450 Lentz 200 450 Colostomy 0 Estimated Blood Loss 250 Other: Voiding Method Indwelling Catheter Indwelling Catheter Weight Measurement Method Built in [facility] Constitutional: Yes: Well Nourished, No Distress, Calm Eyes: Yes: Conjunctiva Clear, EOM Intact HENT: Yes: Atraumatic, Normocephalic, Other (NGT) Neck: Yes: Supple, Trachea Midline Cardiovascular: Yes: Regular Rate and Rhythm Respiratory: Yes: Regular, CTA Bilaterally Gastrointestinal: Yes: Normal Bowel Sounds, Soft, Abdomen, Obese, Tenderness ( incisional), Other (colostomy LUQ) ...Rectal Exam: Yes: Deferred. No: Other Genitourinary: Yes: Lentz Present. No: CVA Tenderness - Left, CVA Tenderness - Right Extremities: No: Cool, Cyanosis Edema: No Peripheral Pulses WNL: Yes Peripheral Pulses: Left Radial: 2+, Right Radial: 2+, Left Doralis Pedis: 2+, Right Dorsalis Pedis: 2+ Integumentary: No: Jaundice, Rash Wound/Incision: Yes: Clean/Dry, Well Approximated, Dressing Dry and Intact Neurological: Yes: Alert, Oriented Psychiatric: Yes: Alert, Oriented Labs: CBC, BMP 02/22/18 05:30 02/22/18 05:30 INR, PTT INR 1.33 (0.83-1.09) H 02/21/18 20:30 Microbiology 02/17/18 20:00 Blood Culture - Final Blood - Peripheral Venous NO GROWTH AFTER 5 DAYS INCUBATION 02/17/18 17:00 Blood Culture - Final Blood - Peripheral Venous NO GROWTH AFTER 5 DAYS INCUBATION 02/20/18 14:30 Gram Stain - Final Abscess Body Fluid Culture - Preliminary Lactose Fermenting Neg Bacilli Staphylococcus Latex Coag Pos Yeast Like Organism Problem List - Problems (1) Neoplasm of sigmoid colon Assessment/Plan: POD#8 s/p sigmoid colectomy and primary anastomisis POD#1 s/p completion left colectomy and amado's NPO and IVF hydration NGT to [facility] Medical oncology workup OOB and ambulate encourage IS physical therapy evaluation will follow Code(s): D49.0 - NEOPLASM OF UNSPECIFIED BEHAVIOR OF DIGESTIVE SYSTEM (2) Sigmoid thickening Code(s): K63.9 - DISEASE OF INTESTINE, UNSPECIFIED (3) Abdominal pain Code(s): R10.9 - UNSPECIFIED ABDOMINAL PAIN Qualifiers: Abdominal location: left lower quadrant Qualified Code(s): R10.32 - Left lower quadrant pain (4) Abnormal colonoscopy Code(s): R93.3 - ABNORMAL FINDINGS ON DX IMAGING OF PRT DIGESTIVE TRACT
[2018-02-22] MEDS: MUPIROCIN 2% TOPICAL OINTMENT FOR DECOLONIZATION NS SCH (10:42)
[2018-02-22] MEDS ORDERED: PROMETHAZINE HCL 25 MG/1 ML VIAL IVPB PRN ×2 (11:46→13:34)
[2018-02-22] MEDS ORDERED: HYDROmorphone HCl 2 MG/ML VIAL IVPB PRN (11:46)
[2018-02-22] MEDS ORDERED: ACETAMINOPHEN 1000 MG/100 ML VIAL (NON FORMULARY) IVPB PRN ×2 (11:46→12:24)
--- NOTE | 2018-02-22 12:18 | PN ---
Progress Note, Physician History of Present Illness: post op patient stable patient with colostomy feels better - Current Medication List Current Medications: Active Medications Acetaminophen (Ofirmev Injection -) 1,000 mg IVPB Q6H PRN PRN Reason: FEVER Amino Acids (Prosource No Carb Liquid Pkt) 30 ml PO BID@0800,1730 J[facility] Diphenhydramine HCl (Benadryl Injection -) 12.5 mg IVPUSH ONCE PRN PRN Reason: FOR ITCHING Hydromorphone HCl (Dilaudid Vial -) 2 mg IVPB Q6H PRN PRN Reason: PAIN LEVEL 6-10 Lactated Ringer's (Lactated Ringers Solution) 1,000 ml in 1,000 mls @ 200 mls/ hr IV ASDIR JERED Piperacillin Sod/Tazobactam (Sod 3.375 gm/ Dextrose) 50 mls @ 100 mls/hr IVPB Q8H-IV JERED; Protocol Levothyroxine Sodium (Synthroid Injection -) 75 mcg IVPUSH AM [facility] Pantoprazole Sodium (Protonix Iv) 40 mg IVPUSH DAILY [facility] Promethazine HCl (Phenergan Injection -) 12.5 mg IVPB Q6H PRN PRN Reason: NAUSEA-FOR RESCUE AFTER 15 MIN - Objective Vital Signs: Vital Signs Temperature 99.8 F H 02/22/18 10:00 Pulse Rate 94 H 02/22/18 10:00 Respiratory Rate 20 02/22/18 10:00 Blood Pressure 123/83 02/22/18 10:00 O2 Sat by Pulse Oximetry (%) 100 02/22/18 08:01 Constitutional: Yes: No Distress, Calm Cardiovascular: Yes: Regular Rate and Rhythm Respiratory: Yes: Regular, CTA Bilaterally Gastrointestinal: Yes: Distention, Other (absent bowel sounds,colostomy in place ) Musculoskeletal: Yes: WNL Extremities: Yes: WNL Neurological: Yes: Alert, Oriented Psychiatric: Yes: Alert, Oriented Labs: CBC, BMP 02/22/18 05:30 02/22/18 05:30 INR, PTT INR 1.33 (0.83-1.09) H 02/21/18 20:30 Assessment/Plan Problem List - Problems (1) Neoplasm of sigmoid colon Code(s): D49.0 - NEOPLASM OF UNSPECIFIED BEHAVIOR OF DIGESTIVE SYSTEM (2) Sigmoid thickening Code(s): K63.9 - DISEASE OF INTESTINE, UNSPECIFIED (3) Abdominal pain Code(s): R10.9 - UNSPECIFIED ABDOMINAL PAIN Qualifiers: Abdominal location: left lower quadrant Qualified Code(s): R10.32 - Left lower quadrant pain (4) Abnormal colonoscopy Code(s): R93.3 - ABNORMAL FINDINGS ON DX IMAGING OF PRT DIGESTIVE TRACT plan continue abx will add diflucan close monitoring rest as per icu hydration cc 40 min
[2018-02-22] MEDS ORDERED: FLUCONAZOLE 200 MG/NS 100 ML IVPB SCH (12:30)
--- NOTE | 2018-02-22 12:50 | PN ---
Teaching Attending Note Name of Resident: Lilly Calvillo ATTENDING PHYSICIAN STATEMENT I saw and evaluated the patient. I reviewed the resident's note and discussed the case with the resident. I agree with the resident's findings and plan as documented. SUBJECTIVE: Pt seen and examined in the ICU. s/p ex-lap found to have feculent peritonitis, perforated diverticulum distal to anastamosis now s/p completion left colectomy , end colostomy. No further episodes of atrial fibrillation. OBJECTIVE: Vital Signs Period Temp Pulse Resp BP Sys/Cavanaugh Pulse Ox Last 24 Hr 99 F-99.8 F 87-107 17-25 99-123/49-83 94-100 Intake & Output 02/19/18 02/20/18 02/21/18 02/22/18 23:59 23:59 23:59 23:59 Intake Total 2800 1825 8600 3246 Output Total 300 2300 1900 450 Balance 2500 -475 6700 2796 Weight 83.915 kg 89.5 kg Gen: NAD at rest Heart: RRR Lung: decreased breath sounds at the bases Abd: soft, mild TTP, +ostomy pink Ext: no edema CBC, BMP 02/22/18 05:30 02/22/18 05:30 Active Medications Acetaminophen (Ofirmev Injection -) 1,000 mg IVPB Q6H PRN PRN Reason: FEVER Diphenhydramine HCl (Benadryl Injection -) 12.5 mg IVPUSH ONCE PRN PRN Reason: FOR ITCHING Lactated Ringer's (Lactated Ringers Solution) 1,000 ml in 1,000 mls @ 200 mls/ hr IV ASDIR JERED Piperacillin Sod/Tazobactam (Sod 3.375 gm/ Dextrose) 50 mls @ 100 mls/hr IVPB Q8H-IV JERED; Protocol Fluconazole (Diflucan 200 Mg/Ns Premixed Ivpb -) 100 mls @ 100 mls/hr IVPB DAILY [facility]ERED Levothyroxine Sodium (Synthroid Injection -) 75 mcg IVPUSH AM [facility] Pantoprazole Sodium (Protonix Iv) 40 mg IVPUSH DAILY [facility] Promethazine HCl (Phenergan Injection -) 12.5 mg IVPB Q6H PRN PRN Reason: NAUSEA-FOR RESCUE AFTER 15 MIN ASSESSMENT AND PLAN: Colon Ca s/p Sigmoid Colectomy 02/14 Post op Fecal Peritonitis/Perforated Diverticulum s/p ex-lap/abdominal washout/Left Colectomy/End Colostomy Lone vs Paroxysmal Atrial Fibrillation Hypothyroidism - continue antibiotics - f/u pending cultures - IVF - monitor urine output, creatinine - pain control - incentive spirometry - monitor for return of bowel function - DVT prophylaxis - telemetry monitoring
--- NOTE | 2018-02-22 12:57 | PN ---
Physical Exam: SUBJECTIVE: Patient seen and examined Patient awake alert, feels improved. Denies chest pain, shortness of breath. OBJECTIVE: Vital Signs Period Temp Pulse Resp BP Sys/Cavanaugh Pulse Ox Last 24 Hr 99 F-99.8 F 87-107 17-25 99-123/49-83 94-100 GENERAL: The patient is awake, alert, and fully oriented, in no acute distress. HEAD: Normal with no signs of trauma. EYES: PERRL, extraocular movements intact, sclera anicteric, conjunctiva clear. No ptosis. ENT: moist mucous membranes. NECK: Trachea midline, full range of motion LUNGS: Breath sounds equal, clear to auscultation bilaterally, no wheezes, no crackles, no accessory muscle use. HEART: Tachycardic, regular rhythm, normal S1 and S2, no murmurs, rubs or gallops, peripheral pulses normal and equal bilaterally. ABDOMEN: Soft, vertical incision at umbilicus to pubic bone with clean dressing. L sided colostomy bad drain with brown feculant matter EXTREMITIES: 2+ pulses, warm, well-perfused, no edema. NEUROLOGICAL: Cranial nerves II through XII grossly intact. Normal speech, gait not observed. PSYCH: Normal mood, normal affect. SKIN: Warm, dry, normal turgor, no rashes or lesions noted Laboratory Results - last 24 hr 02/21/18 02/21/18 02/21/18 05:30 12:35 20:30 WBC 6.4 RBC 4.39 Hgb 11.9 Hct 34.9 L MCV 79.4 L MCH 27.0 MCHC 34.0 RDW 19.7 H Plt Count 267 MPV 7.6 Absolute Neuts (auto) 5.8 Total Counted 100 Neutrophils % No Result Required. Neutrophils % (Manual) 81.0 Band Neutrophils % 9.0 Lymphocytes % No Result Required. Lymphocytes % (Manual) 3.0 L Monocytes % Monocytes % (Manual) 6 Eosinophils % Basophils % Nucleated RBC % 0 Differential Comment Man diff performed Platelet Estimate Adequate Platelet Comment Polychromasia 1+ Anisocytosis 1+ Macrocytosis 1+ PT with INR INR PTT (Actin FS) 35.5 Anticoagulation Therapy Puncture Site ABG pH ABG pCO2 at Pt Temp ABG pO2 at Pt Temp ABG HCO3 ABG O2 Sat (Measured) ABG O2 Content ABG Base Excess Christopher Test O2 Delivery Device Oxygen Flow Rate Vent Mode Vent Rate Mechanical Rate Pressure Support Vent Sodium Potassium Chloride Carbon Dioxide Anion Gap BUN Creatinine Creat Clearance w eGFR Random Glucose Calcium Phosphorus Magnesium Total Bilirubin AST ALT Alkaline Phosphatase Troponin I Total Protein Albumin Blood Type O POSITIVE Antibody Screen Negative Crossmatch IS Only See Detail 02/21/18 02/21/18 02/21/18 20:30 20:30 20:30 WBC RBC Hgb Hct MCV MCH MCHC RDW Plt Count MPV Absolute Neuts (auto) Total Counted Neutrophils % Neutrophils % (Manual) Band Neutrophils % Lymphocytes % Lymphocytes % (Manual) Monocytes % Monocytes % (Manual) Eosinophils % Basophils % Nucleated RBC % Differential Comment Platelet Estimate Platelet Comment Polychromasia Anisocytosis Macrocytosis PT with INR 15.70 H INR 1.33 H PTT (Actin FS) Anticoagulation Therapy Puncture Site ABG pH ABG pCO2 at Pt Temp ABG pO2 at Pt Temp ABG HCO3 ABG O2 Sat (Measured) ABG O2 Content ABG Base Excess Christopher Test O2 Delivery Device Oxygen Flow Rate Vent Mode Vent Rate Mechanical Rate Pressure Support Vent Sodium 136 Potassium 4.9 Chloride 104 Carbon Dioxide 22 Anion Gap 10 BUN 17 Creatinine 0.8 Creat Clearance w eGFR > 60 Random Glucose 138 H Calcium 6.3 L* Phosphorus Magnesium Total Bilirubin 3.6 H AST 15 ALT 15 Alkaline Phosphatase 56 Troponin I < 0.02 Total Protein 3.8 L Albumin 1.2 L Blood Type Antibody Screen Crossmatch IS Only 02/21/18 02/22/18 02/22/18 21:01 05:30 05:30 WBC 7.3 RBC 4.21 Hgb 11.0 L Hct 33.7 L MCV 80.2 MCH 26.1 MCHC 32.5 RDW 20.0 H Plt Count 252 MPV 7.4 L Absolute Neuts (auto) 6.3 Total Counted Neutrophils % 87.4 H Neutrophils % (Manual) Band Neutrophils % Lymphocytes % 3.6 L D Lymphocytes % (Manual) Monocytes % 9.0 Monocytes % (Manual) Eosinophils % 0.0 Basophils % 0.0 Nucleated RBC % 0 Differential Comment Platelet Estimate Platelet Comment Polychromasia Anisocytosis Macrocytosis PT with INR INR PTT (Actin FS) Anticoagulation Therapy No Result Required. Puncture Site Left radial ABG pH 7.41 ABG pCO2 at Pt Temp 36.8 ABG pO2 at Pt Temp 102.0 H ABG HCO3 22.7 ABG O2 Sat (Measured) 97.3 ABG O2 Content 15.5 ABG Base Excess -1.1 Christopher Test Positive O2 Delivery Device No Result Required. Oxygen Flow Rate 4 Vent Mode No Result Required. Vent Rate No Result Required. Mechanical Rate No Result Required. Pressure Support Vent No Result Required. Sodium 137 Potassium 4.9 Chloride 105 Carbon Dioxide 24 Anion Gap 8 BUN 20 H Creatinine 1.0 Creat Clearance w eGFR > 60 Random Glucose 168 H Calcium 6.4 L* Phosphorus 3.4 Magnesium 2.3 Total Bilirubin 2.7 H AST 23 ALT 19 Alkaline Phosphatase 54 Troponin I Total Protein 4.0 L Albumin 1.2 L Blood Type Antibody Screen Crossmatch IS Only Active Medications Generic Name Dose Route Start Last Admin Trade Name Freq PRN Reason Stop Dose Admin Acetaminophen 1,000 mg 02/22/18 11:46 Ofirmev Injection - IVPB Q6H PRN FEVER Diphenhydramine HCl 12.5 mg 02/22/18 11:46 Benadryl Injection - IVPUSH ONCE PRN FOR ITCHING Lactated Ringer's 1,000 ml in 1,000 mls @ 200 mls/hr 02/22/18 11:46 Lactated Ringers Solution IV ASDIR JERED Piperacillin Sod/Tazobactam 50 mls @ 100 mls/hr 02/22/18 18:00 Sod 3.375 gm/ Dextrose IVPB Q8H-IV JERED Protocol Fluconazole 100 mls @ 100 mls/hr 02/22/18 12:30 Diflucan 200 Mg/Ns Premixed Ivpb - IVPB DAILY JERED Levothyroxine Sodium 75 mcg 02/23/18 07:00 Synthroid Injection - IVPUSH AM JERED Pantoprazole Sodium 40 mg 02/23/18 10:00 Protonix Iv IVPUSH DAILY JERED Promethazine HCl 12.5 mg 02/22/18 11:46 Phenergan Injection - IVPB Q6H PRN NAUSEA-FOR RESCUE AFTER 15 MIN ASSESSMENT/PLAN: 57 year old man with history of hypothyroidism, stage 1 colon cancer with sigmoid colectomy (02/14) with fluid collection requiring IR drainage with episode of Afib with RVR while in CT. Rapid response called pt required 40mg cardizem total, pt transferred to ICU, 10mg cardizem gtt, returned to sinus HR in 90s. Pt w/ feculent peritonitis and diverticular perforation. Colectomy, abdominal washout and Sue performed on 02/22 (Dr. Ventura) patient without OR complications but with second episode of Afib with RVR after procedure requiring 10mg cardizem push. Maintained sinus rhythm with HR in 80s since post procedure. PLAN Cardiac Episodic Afib w/ RVR - Rhythm sinus at rate of 80-90 - ECHO (02/21) with 65% EF no gross valvular dysfunction - no longer requiring cardizem ID Abscess - Per ID: Zosyn day 08/08, Diflucan 04/10 (for yeast growth) - Blood cultures (02/17) - without growth - Abscess culture (02/20) - lactose fermenting gram neg bacilli, coag pos staph , yeast - Tylenol PRN for fever Pulm Post Op - Incentive spirometry - Early ambulation - Repeat CXR Oncology Stage 1 Colon CA - Colostomy procedure without complications. - Followed by pathology and oncology. F/E/N - NG tube to be placed today - 1L LR Endo Hypothyroidism - TSH within normal - Levothyroxine home med Analgesia - Dilaudid GI ppx - Protonix 40mg daily DVT ppx - SCDs Dispo: Patient pending transfer to telemetry Visit type - Emergency Visit Emergency Visit: No - New Patient This patient is new to me today: No - Critical Care Critical Care patient: No
--- NOTE | 2018-02-22 14:01 | PN ---
Progress Note, Physician Chief Complaint: no complaints of chest pain or sob, palpitations. telemetry now sinus rhythm History of Present Illness: 57 year old man with pmh hypothyroid recently dx colon mass admitted for resection, now POD 5 post surgery complaining of abdominal pain. CT scan with fluid collection underwent CT guided drainage. Found with afib with RVR no symptoms in CT scan. Transferred to ICU, started on Cardizem IV, converted to NSR, now off drip. Underwent surgery. Colectomy and colostomy with washout. - Current Medication List Current Medications: Active Medications Acetaminophen (Ofirmev Injection -) 1,000 mg IVPB Q6H PRN PRN Reason: FEVER Diphenhydramine HCl (Benadryl Injection -) 12.5 mg IVPUSH ONCE PRN PRN Reason: FOR ITCHING Fluconazole (Diflucan 200 Mg/Ns Premixed Ivpb -) 100 mls @ 100 mls/hr IVPB DAILY JERED Lactated Ringer's (Lactated Ringers Solution) 1,000 ml in 1,000 mls @ 200 mls/ hr IV ASDIR JERED Piperacillin Sod/Tazobactam (Sod 3.375 gm/ Dextrose) 50 mls @ 100 mls/hr IVPB Q8H-IV JERED; Protocol Levothyroxine Sodium (Synthroid Injection -) 75 mcg IVPUSH AM JERED Pantoprazole Sodium (Protonix Iv) 40 mg IVPUSH DAILY JERED Promethazine HCl (Phenergan Injection -) 12.5 mg IVPB Q6H PRN PRN Reason: NAUSEA-FOR RESCUE AFTER 15 MIN - Objective Vital Signs: Vital Signs Temperature 100.1 F H 02/22/18 13:30 Pulse Rate 104 H 02/22/18 13:30 Respiratory Rate 18 02/22/18 13:30 Blood Pressure 133/76 02/22/18 13:30 O2 Sat by Pulse Oximetry (%) 100 02/22/18 08:01 Constitutional: Yes: No Distress, Calm Eyes: Yes: EOM Intact HENT: Yes: Atraumatic, Normocephalic Neck: Yes: Supple, Trachea Midline Cardiovascular: Yes: Regular Rate and Rhythm Respiratory: Yes: CTA Bilaterally Gastrointestinal: Yes: Hypoactive Bowel Sounds, Other (colostomy) Extremities: Yes: WNL Edema: No Peripheral Pulses WNL: Yes Labs: CBC, BMP 02/22/18 05:30 02/22/18 05:30 INR, PTT INR 1.33 (0.83-1.09) H 02/21/18 20:30 Assessment/Plan 57 year old man with pmh hypothyroid recently dx colon mass admitted for resection, now POD 5 post surgery complaining of abdominal pain. CT scan with fluid collection underwent drainage. Found with afib with RVR no symptoms in CT scan. Given IV dilt, converted to NSR. Awaiting surgery today. New paroxysmal atrial fibrillation -defer AC until surgically stable, does not need it given CHADS2-VASC = 0. -Echo is normal -KATJA negative -TFTs normal -one more day of telemetry then dc monitor.
--- NOTE | 2018-02-22 16:07 | PN ---
Progress Note, Physician Chief Complaint: AWAKE ALERT SEEN IN ICU COMFORTABLE - Current Medication List Current Medications: Active Medications Acetaminophen (Ofirmev Injection -) 1,000 mg IVPB Q6H PRN PRN Reason: FEVER Diphenhydramine HCl (Benadryl Injection -) 12.5 mg IVPUSH ONCE PRN PRN Reason: FOR ITCHING Fluconazole (Diflucan 200 Mg/Ns Premixed Ivpb -) 100 mls @ 100 mls/hr IVPB DAILY JERED Lactated Ringer's (Lactated Ringers Solution) 1,000 ml in 1,000 mls @ 200 mls/ hr IV ASDIR JERED Last Admin: 02/22/18 13:51 Dose: 200 mls/hr Piperacillin Sod/Tazobactam (Sod 3.375 gm/ Dextrose) 50 mls @ 100 mls/hr IVPB Q8H-IV JERED; Protocol Levothyroxine Sodium (Synthroid Injection -) 75 mcg IVPUSH AM JERED Pantoprazole Sodium (Protonix Iv) 40 mg IVPUSH DAILY JERED Promethazine HCl (Phenergan Injection -) 12.5 mg IVPB Q6H PRN PRN Reason: NAUSEA-FOR RESCUE AFTER 15 MIN - Objective Vital Signs: Vital Signs Temperature 100.1 F H 02/22/18 13:30 Pulse Rate 104 H 02/22/18 13:30 Respiratory Rate 18 02/22/18 13:30 Blood Pressure 133/76 02/22/18 13:30 O2 Sat by Pulse Oximetry (%) 100 02/22/18 08:01 Constitutional: Yes: No Distress Eyes: Yes: WNL HENT: Yes: WNL Neck: Yes: WNL Cardiovascular: Yes: Pulse Irregular Respiratory: Yes: WNL Gastrointestinal: Yes: Soft, Other (COLOSTOMY) Genitourinary: Yes: WNL Musculoskeletal: Yes: WNL Extremities: Yes: WNL Edema: No Peripheral Pulses WNL: Yes Integumentary: Yes: Other Wound/Incision: Yes: Open to air, Other Neurological: Yes: WNL ...Motor Strength: WNL Psychiatric: Yes: WNL Labs: CBC, BMP 02/22/18 05:30 02/22/18 05:30 INR, PTT INR 1.33 (0.83-1.09) H 02/21/18 20:30 Problem List - Problems (1) Abdominal pain Code(s): R10.9 - UNSPECIFIED ABDOMINAL PAIN Qualifiers: Abdominal location: left lower quadrant Qualified Code(s): R10.32 - Left lower quadrant pain (2) Abnormal colonoscopy Code(s): R93.3 - ABNORMAL FINDINGS ON DX IMAGING OF PRT DIGESTIVE TRACT (3) Neoplasm of sigmoid colon Code(s): D49.0 - NEOPLASM OF UNSPECIFIED BEHAVIOR OF DIGESTIVE SYSTEM Assessment/Plan SURGERY EVAL AND F/U APPRECIATED PAIN CONTROL FEVER/CHECK BLOOD CX DIET STARTED CLEARS OOB TO CHAIR DVT PROPHYLAXIS STARTED AMINO ACIDS AND MVI SENDING FOR PARACENTESIS TRANSFER TO TELEMETRY
[2018-02-22] MEDS: AMINO ACIDS/PROTEIN HYDROLYS 30 ML LIQUID.PKT PO SCH (16:54)
[2018-02-22] MEDS ORDERED: PIPERACILLIN/TAZOB 3.375 GM 3.375 GM in DEXTROSE 5%-WATER - 50 ML IVPB SCH (18:00)
[2018-02-22] MEDS: ACETAMINOPHEN 1000 MG/100 ML VIAL (NON FORMULARY) IVPB PRN (21:25)
[2018-02-22] MEDS: LACTATED RINGERS SOLUTION 1,000 ML/1,000 ML INFUS.BAG IV SCH (21:25)
[2018-02-22 23:32] LABS: URINE APPEARANCE CLEAR; URINE BILIRUBIN NEGATIVE (<2.0 mg/dL); URINE COLOR AMBER; URINE GLUCOSE (UA) NEGATIVE (NEGATIVE); URINE KETONE NEGATIVE (NEGATIVE); URINE LEUK ESTERASE NEGATIVE (NEGATIVE); URINE NITRITE NEGATIVE (NEGATIVE); URINE PROTEIN NEGATIVE (NEGATIVE); URINE UROBILINOGEN NEGATIVE mg/dL (0.2-1.0)
[2018-02-23] MEDS ORDERED: PIPERACILLIN/TAZOBACTAM 3.375 GM VIAL IVPB ONE ×3 (01:33→17:15)
[2018-02-23] MEDS ORDERED: DEXTROSE 5%-WATER - 50 ML IVPB ONE ×3 (01:34→17:15)
[2018-02-23] MEDS: PIPERACILLIN/TAZOB 3.375 GM 3.375 GM in DEXTROSE 5%-WATER - 50 ML IVPB SCH ×3 (02:13→17:33)
--- NOTE | 2018-02-23 06:27 | PN ---
Progress Note, Physician Chief Complaint: abdominal pain and colon mass History of Present Illness: 57 yo male presenting to [facility] ER via private auto complaining of occasional lower left abdominal discomfort. stable post operatively after second laparotomy. Gas and air in the colostomy this morning - Current Medication List Current Medications: Active Medications Acetaminophen (Ofirmev Injection -) 1,000 mg IVPB Q6H PRN PRN Reason: FEVER Last Admin: 02/22/18 21:25 Dose: 1,000 mg Amino Acids (Prosource No Carb Liquid Pkt) 30 ml PO BID@0800,1730 JERED Last Admin: 02/22/18 16:54 Dose: Not Given Diphenhydramine HCl (Benadryl Injection -) 12.5 mg IVPUSH ONCE PRN PRN Reason: FOR ITCHING Fluconazole (Diflucan 200 Mg/Ns Premixed Ivpb -) 100 mls @ 100 mls/hr IVPB DAILY JERED Piperacillin Sod/Tazobactam (Sod 3.375 gm/ Dextrose) 50 mls @ 100 mls/hr IVPB Q8H-IV JERED; Protocol Last Admin: 02/23/18 02:13 Dose: 100 mls/hr Lactated Ringer's (Lactated Ringers Solution) 1,000 ml in 1,000 mls @ 75 mls/ hr IV ASDIR JERED Last Admin: 02/22/18 21:25 Dose: 75 mls/hr Levothyroxine Sodium (Synthroid Injection -) 75 mcg IVPUSH AM JERED Pantoprazole Sodium (Protonix Iv) 40 mg IVPUSH DAILY JERED Promethazine HCl (Phenergan Injection -) 12.5 mg IVPB Q6H PRN PRN Reason: NAUSEA-FOR RESCUE AFTER 15 MIN - Objective Vital Signs: Vital Signs Temperature 99.0 F 02/23/18 02:00 Pulse Rate 85 02/23/18 02:00 Respiratory Rate 20 02/23/18 02:00 Blood Pressure 114/71 02/23/18 02:00 O2 Sat by Pulse Oximetry (%) 94 L 02/22/18 22:00 Vital Signs Period Temp Pulse Resp BP Sys/Cavanaugh Pulse Ox Last 24 Hr 99.0 F-101.0 F 85-104 18-25 114-133/71-83 94-100 Intake & Output 02/22/18 02/22/18 02/23/18 15:59 23:59 07:59 Intake Total 1050 1100 Output Total 1025 650 Balance 25 450 Intake: IV 1050 1000 LACTATED RINGERS SOLUTION 1000 1000 1,000 ml In 1,000 ml @ 200 mls/hr IV ASDIR JERED Rx#:[id number] saline lock # 2 50 IVPB 100 Output: Drainage 25 Left Lateral Abdomen 25 Urine 500 500 Mazariegos 500 500 Emesis 500 150 Other: Voiding Method Indwelling Catheter Indwelling Catheter Constitutional: Yes: Well Nourished, No Distress, Calm Eyes: Yes: Conjunctiva Clear, EOM Intact HENT: Yes: Atraumatic, Normocephalic Neck: Yes: Supple, Trachea Midline Cardiovascular: Yes: Regular Rate and Rhythm Respiratory: Yes: Regular, CTA Bilaterally Gastrointestinal: Yes: Soft, Abdomen, Obese, Distention, Hypoactive Bowel Sounds , Tenderness (tenderness is incisional) Genitourinary: No: CVA Tenderness - Left, CVA Tenderness - Right Extremities: No: Cool, Cyanosis Edema: Yes Edema: LUE: Trace, RUE: Trace, LLE: Trace, RLE: Trace Peripheral Pulses WNL: Yes Peripheral Pulses: Left Radial: 2+, Right Radial: 2+, Left Doralis Pedis: 2+, Right Dorsalis Pedis: 2+ Wound/Incision: Yes: Clean/Dry, Well Approximated, Dressing Dry and Intact, Dressing Removed Neurological: Yes: Alert, Oriented Psychiatric: Yes: Alert, Oriented Labs: CBC, BMP 18 05:30 18 05:30 INR, PTT INR 1.33 (0.83-1.09) H 02/21/18 20:30 Problem List - Problems (1) Neoplasm of sigmoid colon Assessment/Plan: POD#9 s/p sigmoid colectomy and primary anastomisis (due to sigmoid colon mass) POD#2 s/p completion left colectomy and amado's (due to perforated diverticulum distal to anatomisis), high fever, gas and liquid stool now in the colostomy monitored setting sips of clears with IVF hydration replete electrolytes - calcium D/C mazariegos and NGT antiemetic Medical oncology workup OOB and ambulate encourage IS physical therapy evaluation will follow Code(s): D49.0 - NEOPLASM OF UNSPECIFIED BEHAVIOR OF DIGESTIVE SYSTEM (2) Sigmoid thickening Code(s): K63.9 - DISEASE OF INTESTINE, UNSPECIFIED (3) Abdominal pain Code(s): R10.9 - UNSPECIFIED ABDOMINAL PAIN Qualifiers: Abdominal location: left lower quadrant Qualified Code(s): R10.32 - Left lower quadrant pain (4) Abnormal colonoscopy Code(s): R93.3 - ABNORMAL FINDINGS ON DX IMAGING OF PRT DIGESTIVE TRACT
[2018-02-23] MEDS ORDERED: ONDANSETRON 4 MG/2 ML VIAL IVPB PRN (06:39)
[2018-02-23] MEDS ORDERED: BENZOCAINE/MENTH/CETYLPYRD CL 1 EACH LOZENGE MM PRN (06:42)
[2018-02-23 06:52] LABS: HEMATOCRIT 27.2 % (35.4-49); HEMOGLOBIN 8.9 GM/dL (11.7-16.9); MCH 26.2 pg (25.7-33.7); MCHC 32.9 g/dl (32.0-35.9); MEAN CELL VOLUME 79.7 fl (80-96); MEAN PLT VOLUME 7.1 fl (7.5-11.1); PLATELET COUNT 279 K/MM3 (134-434); RBC 3.41 M/mm3 (4.00-5.60); RDW 20.3 % (11.9-15.9); WHITE BLOOD COUNT 9.5 K/mm3 (4.0-10.0)
[2018-02-23] MEDS ORDERED: LEVOTHYROXINE SODIUM 100 MCG VIAL IVPUSH SCH ×2 (07:00)
[2018-02-23] MEDS: AMINO ACIDS/PROTEIN HYDROLYS 30 ML LIQUID.PKT PO SCH ×2 (08:00→17:33)
[2018-02-23 08:10] LABS: BLOOD UREA NITROGEN 24 mg/dL (7-18); CREATININE 1.1 mg/dL (0.55-1.3); GLUCOSE,RANDOM 130 mg/dL (74-106); POTASSIUM 4.6 mmol/L (3.5-5.1); SODIUM 140 mmol/L (136-145)
[2018-02-23 08:11] LABS: ALBUMIN 1.3 g/dl (3.4-5.0); ALK PHOS 62 U/L (45-117); ANION GAP 9 MMOL/L (8-16); BILIRUBIN,TOTAL 2.1 mg/dL (0.2-1); CHLORIDE 107 mmol/L (98-107); CO2 25 mmol/L (21-32); SGOT/AST 26 U/L (15-37); SGPT/ALT 24 U/L (13-61); TOT PROT 4.5 g/dl (6.4-8.2)
[2018-02-23 08:31] LABS: CALCIUM 6.5 mg/dL (8.5-10.1)
[2018-02-23] MEDS ORDERED: PANTOPRAZOLE SODIUM 40 MG VIAL IVPUSH SCH (10:00)
[2018-02-23] MEDS: PANTOPRAZOLE SODIUM 40 MG VIAL IVPUSH SCH (10:00)
[2018-02-23] MEDS: LEVOTHYROXINE SODIUM 100 MCG VIAL IVPUSH SCH (10:01)
[2018-02-23] MEDS: FLUCONAZOLE 200 MG/NS 100 ML IVPB SCH (11:54)
[2018-02-23] MEDS: ACETAMINOPHEN 1000 MG/100 ML VIAL (NON FORMULARY) IVPB PRN ×2 (11:59→18:20)
--- NOTE | 2018-02-23 12:29 | PN ---
Progress Note, Physician - Current Medication List Current Medications: Active Medications Acetaminophen (Ofirmev Injection -) 1,000 mg IVPB Q6H PRN PRN Reason: FEVER Last Admin: 02/23/18 11:59 Dose: 1,000 mg Amino Acids (Prosource No Carb Liquid Pkt) 30 ml PO BID@0800,1730 [facility] Last Admin: 02/23/18 08:00 Dose: 30 ml Benzocaine/Menthol (Cepacol Lozenge -) 1 each MM PRN PRN PRN Reason: SORE THROAT Diphenhydramine HCl (Benadryl Injection -) 12.5 mg IVPUSH ONCE PRN PRN Reason: FOR ITCHING Fluconazole (Diflucan 200 Mg/Ns Premixed Ivpb -) 100 mls @ 100 mls/hr IVPB DAILY JERED Last Admin: 02/23/18 11:54 Dose: 100 mls/hr Piperacillin Sod/Tazobactam (Sod 3.375 gm/ Dextrose) 50 mls @ 100 mls/hr IVPB Q8H-IV JERED; Protocol Last Admin: 02/23/18 10:00 Dose: 100 mls/hr Lactated Ringer's (Lactated Ringers Solution) 1,000 ml in 1,000 mls @ 75 mls/ hr IV ASDIR JERED Last Admin: 02/22/18 21:25 Dose: 75 mls/hr Levothyroxine Sodium (Synthroid Injection -) 75 mcg IVPUSH DAILY [facility] Last Admin: 02/23/18 10:01 Dose: 75 mcg Ondansetron HCl (Zofran Injection) 8 mg IVPB Q8H PRN PRN Reason: NAUSEA Last Admin: 02/23/18 11:55 Dose: 8 mg Pantoprazole Sodium (Protonix Iv) 40 mg IVPUSH DAILY [facility] Last Admin: 02/23/18 10:00 Dose: 40 mg Promethazine HCl (Phenergan Injection -) 12.5 mg IVPB Q6H PRN PRN Reason: NAUSEA-FOR RESCUE AFTER 15 MIN - Objective Vital Signs: Vital Signs Temperature 98.9 F 02/23/18 09:17 Pulse Rate 88 02/23/18 09:17 Respiratory Rate 16 02/23/18 09:17 Blood Pressure 120/80 02/23/18 09:17 O2 Sat by Pulse Oximetry (%) 94 L 02/22/18 22:00 Cardiovascular: Yes: S1, S2 Respiratory: Yes: Regular, CTA Bilaterally Gastrointestinal: Yes: Normal Bowel Sounds, Soft, Other (colostomy) Labs: CBC, BMP 02/23/18 06:00 02/23/18 06:00 INR, PTT INR 1.33 (0.83-1.09) H 02/21/18 20:30 Problem List - Problems (1) Abdominal pain Assessment/Plan: -S/P hemicolectomy Operative Date: 02/21/18 Pre-Operative Diagnosis: Acute abdomen, feculent peritonitis Operation: exploratory lapartotomy, abdominal washout, completion left colectomy , end colostomy (transverse colon) Findings: feculent peritonitis limited to left abdominal contamination by omentum. stapled anastomosis was intact, there was a perforated diverticulum distal on the rectal stump. irrigated with 6 liters. end transverse colostomy created in LUQ. all counts correct. Post-Operative Diagnosis: Other (Perforated diverticulitis distal rectal stump) Surgeon: Horacio Ventura -Surgical follow up -IV abx Code(s): R10.9 - UNSPECIFIED ABDOMINAL PAIN Qualifiers: Abdominal location: left lower quadrant Qualified Code(s): R10.32 - Left lower quadrant pain (2) Neoplasm of sigmoid colon Assessment/Plan: Pre-Operative Diagnosis: abdominal pain and sigmoid colon mass Operation: sigmoid colectomy Findings: sigmoid colon with mass, tatooed stitch ashraf proximal, side to side stapled anastomosis Post-Operative Diagnosis: Same as Pre-op Surgeon: Horacio Ventura diet and further plan per surgery Operative Date: 02/21/18 Pre-Operative Diagnosis: Acute abdomen, feculent peritonitis Operation: exploratory lapartotomy, abdominal washout, completion left colectomy , end colostomy (transverse colon) Findings: feculent peritonitis limited to left abdominal contamination by omentum. stapled anastomosis was intact, there was a perforated diverticulum distal on the rectal stump. irrigated with 6 liters. end transverse colostomy created in LUQ. all counts correct. Post-Operative Diagnosis: Other (Perforated diverticulitis distal rectal stump) Surgeon: Horacio Ventura Code(s): D49.0 - NEOPLASM OF UNSPECIFIED BEHAVIOR OF DIGESTIVE SYSTEM (3) Hypothyroid Assessment/Plan: -same iv synthroid while npo Code(s): E03.9 - HYPOTHYROIDISM, UNSPECIFIED (4) Afib Assessment/Plan: -Rate better today -Continue with meds -Ac on hold for now -Cardio on board Code(s): I48.91 - UNSPECIFIED ATRIAL FIBRILLATION (5) Anemia Assessment/Plan: follow labs Code(s): D64.9 - ANEMIA, UNSPECIFIED
[2018-02-23 12:39] LABS: ANISOCYTOSIS 2+; MACROCYTOSIS 0; OVALOCYTE 1+; PLATELET ESTIMATE NORMAL; TEAR DROP CELLS 1+
[2018-02-23 13:26] LABS: BASO % 0.4 % (0-2.0); EOS % 0.2 % (0-4.5); HEMATOCRIT 26.6 % (35.4-49); HEMOGLOBIN 9.2 GM/dL (11.7-16.9); LYMPH % 3.8 % (8-40); MCH 27.5 pg (25.7-33.7); MCHC 34.8 g/dl (32.0-35.9); MEAN PLT VOLUME 7.2 fl (7.5-11.1); MONO % 10.8 % (3.8-10.2); NEUT % 84.8 % (42.8-82.8); PLATELET COUNT 328 K/MM3 (134-434); RBC 3.37 M/mm3 (4.00-5.60); RDW 20.6 % (11.9-15.9); WHITE BLOOD COUNT 9.6 K/mm3 (4.0-10.0)
--- NOTE | 2018-02-23 14:29 | PN ---
Progress Note, Physician History of Present Illness: seen and examined today in nad. no overnight events. no new complaints. no palpitations. - Current Medication List Current Medications: Active Medications Acetaminophen (Ofirmev Injection -) 1,000 mg IVPB Q6H PRN PRN Reason: FEVER Last Admin: 02/23/18 11:59 Dose: 1,000 mg Amino Acids (Prosource No Carb Liquid Pkt) 30 ml PO BID@0800,1730 JERED Last Admin: 02/23/18 08:00 Dose: 30 ml Benzocaine/Menthol (Cepacol Lozenge -) 1 each MM PRN PRN PRN Reason: SORE THROAT Diphenhydramine HCl (Benadryl Injection -) 12.5 mg IVPUSH ONCE PRN PRN Reason: FOR ITCHING Fluconazole (Diflucan 200 Mg/Ns Premixed Ivpb -) 100 mls @ 100 mls/hr IVPB DAILY JERED Last Admin: 02/23/18 11:54 Dose: 100 mls/hr Piperacillin Sod/Tazobactam (Sod 3.375 gm/ Dextrose) 50 mls @ 100 mls/hr IVPB Q8H-IV JERED; Protocol Last Admin: 02/23/18 10:00 Dose: 100 mls/hr Lactated Ringer's (Lactated Ringers Solution) 1,000 ml in 1,000 mls @ 75 mls/ hr IV ASDIR JERED Last Admin: 02/22/18 21:25 Dose: 75 mls/hr Levothyroxine Sodium (Synthroid Injection -) 75 mcg IVPUSH DAILY JERED Last Admin: 02/23/18 10:01 Dose: 75 mcg Ondansetron HCl (Zofran Injection) 8 mg IVPB Q8H PRN PRN Reason: NAUSEA Last Admin: 02/23/18 11:55 Dose: 8 mg Pantoprazole Sodium (Protonix Iv) 40 mg IVPUSH DAILY JERED Last Admin: 02/23/18 10:00 Dose: 40 mg Promethazine HCl (Phenergan Injection -) 12.5 mg IVPB Q6H PRN PRN Reason: NAUSEA-FOR RESCUE AFTER 15 MIN - Objective Vital Signs: Vital Signs Temperature 98.9 F 02/23/18 09:17 Pulse Rate 88 02/23/18 09:17 Respiratory Rate 16 02/23/18 09:17 Blood Pressure 120/80 02/23/18 09:17 O2 Sat by Pulse Oximetry (%) 94 L 02/22/18 22:00 Constitutional: Yes: Well Nourished, No Distress, Calm Eyes: Yes: WNL, Conjunctiva Clear, EOM Intact, PERRL HENT: Yes: WNL, Atraumatic, Normocephalic Neck: Yes: WNL, Supple, Trachea Midline Cardiovascular: Yes: Regular Rate and Rhythm, S1, S2. No: Bradycardia, Tachycardia, Pulse Irregular, Bruit, JVD, Gallop, Murmur, Rub, S3, S4, Varicosities Respiratory: Yes: Regular, CTA Bilaterally. No: Rales, Rhonchi, Wheezes Gastrointestinal: Yes: Normal Bowel Sounds, Soft, Other (colostomy) Extremities: Yes: WNL Edema: No Peripheral Pulses WNL: Yes Peripheral Pulses: Left Doralis Pedis: 2+, Right Dorsalis Pedis: 2+ Neurological: Yes: Alert, Oriented Psychiatric: Yes: Alert, Oriented Labs: CBC, BMP 02/23/18 13:09 02/23/18 06:00 INR, PTT INR 1.33 (0.83-1.09) H 02/21/18 20:30 - ....Imaging Chest X-ray: Report Reviewed, Image Reviewed EKG: Report Reviewed, Image Reviewed Other: Report Reviewed, Image Reviewed (tele nsr pvcs) Assessment/Plan 57 year old man with pmh hypothyroid recently dx colon mass admitted for resection, now POD 5 post surgery complaining of abdominal pain. CT scan with fluid collection underwent drainage. Found with afib with RVR no symptoms in CT scan. Given IV dilt, converted to NSR. Awaiting surgery today. New paroxysmal atrial fibrillation -tolerated surgery without cardiac complication -no Afib on tele overnight, currently nsr -as his CHADS2-Vasc score is 0 he does not require full AC and as he recently had surgery there would be increased risk of bleeding therefore would defer at this time and can be re-evaluated as outpatient, this was discussed at length with pt and he agrees -Echo is normal -KATJA negative -TFTs normal -ok to dc tele -no other inpatient cardiac work up needed at this time. -please call with any additional questions otherwise pt can fup as outpatient
[2018-02-23 14:32] LABS: ANISOCYTOSIS 1+
--- NOTE | 2018-02-23 15:17 | PN ---
Progress Note, Physician History of Present Illness: stable colostomy fning no complaints - Current Medication List Current Medications: Active Medications Acetaminophen (Ofirmev Injection -) 1,000 mg IVPB Q6H PRN PRN Reason: FEVER Last Admin: 02/23/18 11:59 Dose: 1,000 mg Amino Acids (Prosource No Carb Liquid Pkt) 30 ml PO BID@0800,1730 [facility] Last Admin: 02/23/18 08:00 Dose: 30 ml Benzocaine/Menthol (Cepacol Lozenge -) 1 each MM PRN PRN PRN Reason: SORE THROAT Diphenhydramine HCl (Benadryl Injection -) 12.5 mg IVPUSH ONCE PRN PRN Reason: FOR ITCHING Fluconazole (Diflucan 200 Mg/Ns Premixed Ivpb -) 100 mls @ 100 mls/hr IVPB DAILY [facility] Last Admin: 02/23/18 11:54 Dose: 100 mls/hr Piperacillin Sod/Tazobactam (Sod 3.375 gm/ Dextrose) 50 mls @ 100 mls/hr IVPB Q8H-IV [facility]; Protocol Last Admin: 02/23/18 10:00 Dose: 100 mls/hr Lactated Ringer's (Lactated Ringers Solution) 1,000 ml in 1,000 mls @ 75 mls/ hr IV ASDIR [facility] Last Admin: 02/22/18 21:25 Dose: 75 mls/hr Levothyroxine Sodium (Synthroid Injection -) 75 mcg IVPUSH DAILY [facility] Last Admin: 02/23/18 10:01 Dose: 75 mcg Ondansetron HCl (Zofran Injection) 8 mg IVPB Q8H PRN PRN Reason: NAUSEA Last Admin: 02/23/18 11:55 Dose: 8 mg Pantoprazole Sodium (Protonix Iv) 40 mg IVPUSH DAILY [facility] Last Admin: 02/23/18 10:00 Dose: 40 mg Promethazine HCl (Phenergan Injection -) 12.5 mg IVPB Q6H PRN PRN Reason: NAUSEA-FOR RESCUE AFTER 15 MIN - Objective Vital Signs: Vital Signs Temperature 98.9 F 02/23/18 09:17 Pulse Rate 88 02/23/18 09:17 Respiratory Rate 16 02/23/18 09:17 Blood Pressure 120/80 02/23/18 09:17 O2 Sat by Pulse Oximetry (%) 95 02/23/18 10:00 Constitutional: Yes: No Distress, Calm Cardiovascular: Yes: Regular Rate and Rhythm Respiratory: Yes: Regular, CTA Bilaterally Gastrointestinal: Yes: Soft, Hypoactive Bowel Sounds, Other (colostomy) Musculoskeletal: Yes: WNL Extremities: Yes: WNL Wound/Incision: Yes: Other (c/d/i) Neurological: Yes: Alert, Oriented Psychiatric: Yes: Alert, Oriented Labs: CBC, BMP 02/23/18 13:09 02/23/18 06:00 INR, PTT INR 1.33 (0.83-1.09) H 02/21/18 20:30 Assessment/Plan Problem List - Problems (1) Neoplasm of sigmoid colon Code(s): D49.0 - NEOPLASM OF UNSPECIFIED BEHAVIOR OF DIGESTIVE SYSTEM (2) Sigmoid thickening Code(s): K63.9 - DISEASE OF INTESTINE, UNSPECIFIED (3) Abdominal pain Code(s): R10.9 - UNSPECIFIED ABDOMINAL PAIN Qualifiers: Abdominal location: left lower quadrant Qualified Code(s): R10.32 - Left lower quadrant pain (4) Abnormal colonoscopy Code(s): R93.3 - ABNORMAL FINDINGS ON DX IMAGING OF PRT DIGESTIVE TRACT fever abd distension plan continue current mgmt abx iv fluids rest as per surgery monitor for fevers
[2018-02-23] MEDS: LACTATED RINGERS SOLUTION 1,000 ML/1,000 ML INFUS.BAG IV SCH (20:57)
[2018-02-23] MEDS ORDERED: PANTOPRAZOLE 40 MG TABLET (FP) PO ONE ×2 (23:43→23:45)
[2018-02-23] MEDS ORDERED: ACETAMINOPHEN 500 MG TABLET (FP) PO ONE (23:43)
[2018-02-24] MEDS ORDERED: DEXTROSE 5%-WATER - 50 ML IVPB ONE ×3 (02:11→17:23)
[2018-02-24] MEDS ORDERED: PIPERACILLIN/TAZOBACTAM 3.375 GM VIAL IVPB ONE ×3 (02:11→17:23)
[2018-02-24] MEDS: PIPERACILLIN/TAZOB 3.375 GM 3.375 GM in DEXTROSE 5%-WATER - 50 ML IVPB SCH ×4 (02:39→17:25)
[2018-02-24] MEDS: LACTATED RINGERS SOLUTION 1,000 ML/1,000 ML INFUS.BAG IV SCH ×2 (05:27→22:38)
[2018-02-24 07:08] LABS: BASO % 0.1 % (0-2.0); EOS % 1.1 % (0-4.5); HEMATOCRIT 26.8 % (35.4-49); HEMOGLOBIN 9.5 GM/dL (11.7-16.9); LYMPH % 7.3 % (8-40); MCHC 35.6 g/dl (32.0-35.9); MEAN CELL VOLUME 78.9 fl (80-96); MEAN PLT VOLUME 7.2 fl (7.5-11.1); MONO % 8.1 % (3.8-10.2); NEUT % 83.4 % (42.8-82.8); PLATELET COUNT 368 K/MM3 (134-434); RDW 20.4 % (11.9-15.9); WHITE BLOOD COUNT 10.9 K/mm3 (4.0-10.0)
[2018-02-24 07:37] LABS: ALBUMIN 1.3 g/dl (3.4-5.0); ALK PHOS 72 U/L (45-117); ANION GAP 7 MMOL/L (8-16); BILIRUBIN,TOTAL 1.2 mg/dL (0.2-1); BLOOD UREA NITROGEN 19 mg/dL (7-18); CHLORIDE 103 mmol/L (98-107); CO2 25 mmol/L (21-32); CREATININE 0.8 mg/dL (0.55-1.3); GLUCOSE,RANDOM 113 mg/dL (74-106); SGOT/AST 27 U/L (15-37); SGPT/ALT 32 U/L (13-61); SODIUM 135 mmol/L (136-145); TOT PROT 4.5 g/dl (6.4-8.2)
[2018-02-24] MEDS: AMINO ACIDS/PROTEIN HYDROLYS 30 ML LIQUID.PKT PO SCH ×3 (07:58→17:25)
[2018-02-24 08:08] LABS: CALCIUM 6.3 mg/dL (8.5-10.1)
[2018-02-24] MEDS ORDERED: PT OWN MED DRAWER 7, Y5N ONE ×5 (09:04→14:07)
[2018-02-24] MEDS: LEVOTHYROXINE SODIUM 100 MCG VIAL IVPUSH SCH (09:27)
[2018-02-24] MEDS: PANTOPRAZOLE SODIUM 40 MG VIAL IVPUSH SCH (09:27)
[2018-02-24] MEDS: FLUCONAZOLE 200 MG/NS 100 ML IVPB SCH (11:32)
[2018-02-24] MEDS ORDERED: CALCIUM GLUCONATE 10% - 1,000 MG/10 ML VIAL IVPB ONE (12:30)
--- NOTE | 2018-02-24 12:35 | PN ---
Progress Note, Physician Chief Complaint: calm on clear liquids with ivf calcium noted - Current Medication List Current Medications: Active Medications Amino Acids (Prosource No Carb Liquid Pkt) 30 ml PO BID@0800,1730 [facility] Last Admin: 02/24/18 08:18 Dose: 30 ml Benzocaine/Menthol (Cepacol Lozenge -) 1 each MM PRN PRN PRN Reason: SORE THROAT Calcium Gluconate (Calcium Gluconate 10% -) 1,000 mg IVPB ONCE ONE Stop: 02/24/18 12:31 Diphenhydramine HCl (Benadryl Injection -) 12.5 mg IVPUSH ONCE PRN PRN Reason: FOR ITCHING Fluconazole (Diflucan 200 Mg/Ns Premixed Ivpb -) 100 mls @ 100 mls/hr IVPB DAILY [facility] Last Admin: 02/24/18 11:32 Dose: 100 mls/hr Piperacillin Sod/Tazobactam (Sod 3.375 gm/ Dextrose) 50 mls @ 100 mls/hr IVPB Q8H-IV [facility]; Protocol Last Admin: 02/24/18 09:27 Dose: 100 mls/hr Lactated Ringer's (Lactated Ringers Solution) 1,000 ml in 1,000 mls @ 75 mls/ hr IV ASDIR [facility] Last Admin: 02/24/18 05:27 Dose: 75 mls/hr Levothyroxine Sodium (Synthroid Injection -) 75 mcg IVPUSH DAILY [facility] Last Admin: 02/24/18 09:27 Dose: 75 mcg Ondansetron HCl (Zofran Injection) 8 mg IVPB Q8H PRN PRN Reason: NAUSEA Last Admin: 02/23/18 11:55 Dose: 8 mg Pantoprazole Sodium (Protonix Iv) 40 mg IVPUSH DAILY [facility] Last Admin: 02/24/18 09:27 Dose: 40 mg Promethazine HCl (Phenergan Injection -) 12.5 mg IVPB Q6H PRN PRN Reason: NAUSEA-FOR RESCUE AFTER 15 MIN - Objective Vital Signs: Vital Signs Temperature 98.8 F 02/24/18 05:28 Pulse Rate 75 02/24/18 05:28 Respiratory Rate 20 02/24/18 05:28 Blood Pressure 130/74 02/24/18 05:28 O2 Sat by Pulse Oximetry (%) 97 02/23/18 21:00 Constitutional: Yes: Calm Cardiovascular: Yes: Regular Rate and Rhythm, S1, S2 Respiratory: Yes: CTA Bilaterally Gastrointestinal: Yes: Soft, Other (colostomy) Neurological: Yes: Alert, Oriented Labs: CBC, BMP 02/24/18 06:30 02/24/18 06:30 INR, PTT INR 1.33 (0.83-1.09) H 02/21/18 20:30 Problem List - Problems (1) Sigmoid thickening Assessment/Plan: admited for surgery of abdominal mass- surgery on board cardiology cleared patient for surgery dvt ppx heparin sub q bid- Note: Operative Date: 02/21/18 Pre-Operative Diagnosis: Acute abdomen, feculent peritonitis Operation: exploratory lapartotomy, abdominal washout, completion left colectomy , end colostomy (transverse colon) Findings: feculent peritonitis limited to left abdominal contamination by omentum. stapled anastomosis was intact, there was a perforated diverticulum distal on the rectal stump. irrigated with 6 liters. end transverse colostomy created in LUQ. all counts correct. Post-Operative Diagnosis: Other (Perforated diverticulitis distal rectal stump) Surgeon: Horacio Ventura Talent Acquisition Relationship Manager: Cheo Singh Anesthesiologist/GARMENT FINISHER: Justine Agrawal Anesthesia: General Estimated Blood Loss (mls): 250 Drains & Tubes with Location: 350 feculent peritoneal ascites aspirated upon opening the abdomen Blood Volume Replaced (mls): 350 (PRBC) Fluid Volume Replaced (mls): 5,000 (crystalloid ) Operative Report Dictated: Yes clear liquids with ivf Code(s): K63.9 - DISEASE OF INTESTINE, UNSPECIFIED (2) Hypothyroid Assessment/Plan: iv synthroid change back to po po synthroid dose is 100mcg at home tsh noted 3.5 increase dose to 112mcg Code(s): E03.9 - HYPOTHYROIDISM, UNSPECIFIED
[2018-02-24] MEDS ORDERED: morphine SULFATE IMMEDIATE RELEASE 30 MG TAB PO PRN (12:39)
[2018-02-24] MEDS: ACETAMINOPHEN 325 MG TABLET (FP) PO PRN ×2 (13:38→22:37)
[2018-02-24] MEDS ORDERED: SIMETHICONE 80 MG TAB.CHEW (FP) PO PRN (14:27)
--- NOTE | 2018-02-24 14:35 | PN ---
Progress Note, Physician Chief Complaint: abdominal pain and colon mass History of Present Illness: 57 yo male presenting to [facility] ER via private auto complaining of occasional lower left abdominal discomfort. stable post operatively after second laparotomy. Gas and air in the colostomy this morning - Current Medication List Current Medications: Active Medications Acetaminophen (Tylenol -) 650 mg PO Q4H PRN PRN Reason: FEVER Last Admin: 02/24/18 13:38 Dose: 650 mg Amino Acids (Prosource No Carb Liquid Pkt) 30 ml PO BID@0800,1730 [facility] Last Admin: 02/24/18 08:18 Dose: 30 ml Benzocaine/Menthol (Cepacol Lozenge -) 1 each MM PRN PRN PRN Reason: SORE THROAT Diphenhydramine HCl (Benadryl Injection -) 12.5 mg IVPUSH ONCE PRN PRN Reason: FOR ITCHING Fluconazole (Diflucan 200 Mg/Ns Premixed Ivpb -) 100 mls @ 100 mls/hr IVPB DAILY [facility] Last Admin: 02/24/18 11:32 Dose: 100 mls/hr Piperacillin Sod/Tazobactam (Sod 3.375 gm/ Dextrose) 50 mls @ 100 mls/hr IVPB Q8H-IV [facility]; Protocol Last Admin: 02/24/18 09:27 Dose: 100 mls/hr Lactated Ringer's (Lactated Ringers Solution) 1,000 ml in 1,000 mls @ 75 mls/ hr IV ASDIR [facility] Last Admin: 02/24/18 05:27 Dose: 75 mls/hr Levothyroxine Sodium (Synthroid -) 112 mcg PO DAILY@0700 [facility] Morphine Sulfate (Msir -) 15 mg PO Q6HPO PRN PRN Reason: PAIN LEVEL 7 - 10 Ondansetron HCl (Zofran Injection) 8 mg IVPB Q8H PRN PRN Reason: NAUSEA Last Admin: 02/23/18 11:55 Dose: 8 mg Pantoprazole Sodium (Protonix -) 40 mg PO DAILY [facility] Promethazine HCl (Phenergan Injection -) 12.5 mg IVPB Q6H PRN PRN Reason: NAUSEA-FOR RESCUE AFTER 15 MIN - Objective Vital Signs: Vital Signs Temperature 98.8 F 02/24/18 05:28 Pulse Rate 75 02/24/18 05:28 Respiratory Rate 20 02/24/18 05:28 Blood Pressure 130/74 02/24/18 05:28 O2 Sat by Pulse Oximetry (%) 97 02/23/18 21:00 Vital Signs Period Temp Pulse Resp BP Sys/Cavanaugh Pulse Ox Last 24 Hr 98.3 F-98.8 F 75-77 16-20 120-130/72-75 97 Intake & Output 02/23/18 02/24/18 02/24/18 23:59 07:59 15:59 Intake Total 750 1500 380 Output Total 400 600 400 Balance 350 900 -20 Intake: IV 300 900 LACTATED RINGERS SOLUTION 300 900 1,000 ml In 1,000 ml @ 75 mls/hr IV ASDIR [facility] Rx #:[id number] IVPB 150 100 Oral 300 500 380 Output: Urine 400 600 200 Void 400 600 200 Colostomy 200 Other: Voiding Method Toilet Urinal Constitutional: Yes: Well Nourished, No Distress, Calm Eyes: Yes: Conjunctiva Clear, EOM Intact HENT: Yes: Atraumatic, Normocephalic Neck: Yes: Supple, Trachea Midline Cardiovascular: Yes: Regular Rate and Rhythm, S1, S2 Respiratory: Yes: Regular, CTA Bilaterally Gastrointestinal: Yes: Normal Bowel Sounds, Soft, Abdomen, Obese, Distention, Tenderness (incisional). No: Tenderness, Epigastrium, Tenderness, Rebound Genitourinary: No: CVA Tenderness - Left, CVA Tenderness - Right Extremities: No: Cool, Cyanosis Integumentary: No: Jaundice, Rash Neurological: Yes: Alert, Oriented Psychiatric: Yes: Alert, Oriented Labs: CBC, BMP 02/24/18 06:30 02/24/18 06:30 INR, PTT INR 1.33 (0.83-1.09) H 02/21/18 20:30 Problem List - Problems (1) Neoplasm of sigmoid colon Assessment/Plan: POD#10 s/p sigmoid colectomy and primary anastomisis (due to sigmoid colon mass ) POD#3 s/p completion left colectomy and amado's (due to perforated diverticulum distal to anatomisis), high fever, gas and liquid stool now in the colostomy monitored setting sips of clears with IVF hydration replete electrolytes - calcium D/C mazariegos and NGT antiemetic Medical oncology workup OOB and ambulate encourage IS physical therapy evaluation will follow Code(s): D49.0 - NEOPLASM OF UNSPECIFIED BEHAVIOR OF DIGESTIVE SYSTEM (2) Sigmoid thickening Code(s): K63.9 - DISEASE OF INTESTINE, UNSPECIFIED (3) Abdominal pain Code(s): R10.9 - UNSPECIFIED ABDOMINAL PAIN Qualifiers: Abdominal location: left lower quadrant Qualified Code(s): R10.32 - Left lower quadrant pain (4) Abnormal colonoscopy Code(s): R93.3 - ABNORMAL FINDINGS ON DX IMAGING OF PRT DIGESTIVE TRACT
[2018-02-25] MEDS ORDERED: DEXTROSE 5%-WATER - 50 ML IVPB ONE ×3 (01:39→17:32)
[2018-02-25] MEDS ORDERED: PIPERACILLIN/TAZOBACTAM 3.375 GM VIAL IVPB ONE ×3 (01:39→17:32)
[2018-02-25] MEDS: PIPERACILLIN/TAZOB 3.375 GM 3.375 GM in DEXTROSE 5%-WATER - 50 ML IVPB SCH ×3 (01:55→17:47)
[2018-02-25] MEDS: LEVOTHYROXINE NA 112 MCG TABLET (FP) PO SCH (06:39)
[2018-02-25] MEDS ORDERED: LEVOTHYROXINE NA 100 MCG TABLET (FP) PO SCH (07:00)
[2018-02-25 09:39] LABS: ALBUMIN 1.4 g/dl (3.4-5.0); ALK PHOS 101 U/L (45-117); ANION GAP 10 MMOL/L (8-16); BLOOD UREA NITROGEN 15 mg/dL (7-18); CHLORIDE 101 mmol/L (98-107); CO2 22 mmol/L (21-32); CREATININE 0.8 mg/dL (0.55-1.3); GLUCOSE,RANDOM 116 mg/dL (74-106); MAGNESIUM 2.3 mg/dL (1.8-2.4); SGOT/AST 22 U/L (15-37); SGPT/ALT 32 U/L (13-61); SODIUM 134 mmol/L (136-145); TOT PROT 5.1 g/dl (6.4-8.2)
[2018-02-25 09:44] LABS: CALCIUM 6.8 mg/dL (8.5-10.1)
[2018-02-25] MEDS: PANTOPRAZOLE 40 MG TABLET (FP) PO SCH (10:00)
[2018-02-25] MEDS: FLUCONAZOLE 200 MG/NS 100 ML IVPB SCH (10:00)
[2018-02-25] MEDS: AMINO ACIDS/PROTEIN HYDROLYS 30 ML LIQUID.PKT PO SCH ×3 (10:00→17:48)
--- NOTE | 2018-02-25 11:38 | PN ---
Progress Note, Physician - Current Medication List Current Medications: Active Medications Acetaminophen (Tylenol -) 650 mg PO Q4H PRN PRN Reason: FEVER Last Admin: 02/24/18 22:37 Dose: 650 mg Amino Acids (Prosource No Carb Liquid Pkt) 30 ml PO BID@0800,1730 [facility] Last Admin: 02/25/18 10:00 Dose: 30 ml Benzocaine/Menthol (Cepacol Lozenge -) 1 each MM PRN PRN PRN Reason: SORE THROAT Diphenhydramine HCl (Benadryl Injection -) 12.5 mg IVPUSH ONCE PRN PRN Reason: FOR ITCHING Heparin Sodium (Porcine) (Heparin -) 5,000 unit SQ BID [facility] Fluconazole (Diflucan 200 Mg/Ns Premixed Ivpb -) 100 mls @ 100 mls/hr IVPB DAILY [facility] Last Admin: 02/25/18 10:00 Dose: 100 mls/hr Piperacillin Sod/Tazobactam (Sod 3.375 gm/ Dextrose) 50 mls @ 100 mls/hr IVPB Q8H-IV [facility]; Protocol Last Admin: 02/25/18 10:00 Dose: 100 mls/hr Lactated Ringer's (Lactated Ringers Solution) 1,000 ml in 1,000 mls @ 75 mls/ hr IV ASDIR [facility] Last Admin: 02/24/18 22:38 Dose: 75 mls/hr Levothyroxine Sodium (Synthroid -) 112 mcg PO DAILY@0700 [facility] Last Admin: 02/25/18 06:39 Dose: 112 mcg Morphine Sulfate (Msir -) 15 mg PO Q6HPO PRN PRN Reason: PAIN LEVEL 7 - 10 Ondansetron HCl (Zofran Injection) 8 mg IVPB Q8H PRN PRN Reason: NAUSEA Last Admin: 02/23/18 11:55 Dose: 8 mg Pantoprazole Sodium (Protonix -) 40 mg PO DAILY [facility] Last Admin: 02/25/18 10:00 Dose: 40 mg Promethazine HCl (Phenergan Injection -) 12.5 mg IVPB Q6H PRN PRN Reason: NAUSEA-FOR RESCUE AFTER 15 MIN Simethicone (Mylicon -) 80 mg PO Q4H PRN PRN Reason: GAS Last Admin: 02/24/18 15:03 Dose: 80 mg - Objective Vital Signs: Vital Signs Temperature 97.8 F 02/25/18 02:31 Pulse Rate 116 H 02/25/18 02:31 Respiratory Rate 18 02/25/18 02:31 Blood Pressure 110/68 02/25/18 02:31 O2 Sat by Pulse Oximetry (%) 95 02/24/18 21:00 Cardiovascular: Yes: S1, S2 Respiratory: Yes: Regular, CTA Bilaterally Gastrointestinal: Yes: Normal Bowel Sounds, Soft, Other (colostomy) Edema: Yes Edema: LLE: 1+, RLE: 1+ Neurological: Yes: Alert, Oriented Labs: CBC, BMP 02/24/18 06:30 02/25/18 08:00 INR, PTT INR 1.33 (0.83-1.09) H 02/21/18 20:30 Problem List - Problems (1) Abdominal pain Assessment/Plan: -S/P hemicolectomy Operative Date: 02/21/18 Pre-Operative Diagnosis: Acute abdomen, feculent peritonitis Operation: exploratory lapartotomy, abdominal washout, completion left colectomy , end colostomy (transverse colon) Findings: feculent peritonitis limited to left abdominal contamination by omentum. stapled anastomosis was intact, there was a perforated diverticulum distal on the rectal stump. irrigated with 6 liters. end transverse colostomy created in LUQ. all counts correct. Post-Operative Diagnosis: Other (Perforated diverticulitis distal rectal stump) Surgeon: Horacio Ventura -Surgical follow up -IV abx Code(s): R10.9 - UNSPECIFIED ABDOMINAL PAIN Qualifiers: Abdominal location: left lower quadrant Qualified Code(s): R10.32 - Left lower quadrant pain (2) Neoplasm of sigmoid colon Assessment/Plan: Pre-Operative Diagnosis: abdominal pain and sigmoid colon mass Operation: sigmoid colectomy Findings: sigmoid colon with mass, tatooed stitch ashraf proximal, side to side stapled anastomosis Post-Operative Diagnosis: Same as Pre-op Surgeon: Horacio Ventura diet and further plan per surgery Operative Date: 02/21/18 Pre-Operative Diagnosis: Acute abdomen, feculent peritonitis Operation: exploratory lapartotomy, abdominal washout, completion left colectomy , end colostomy (transverse colon) Findings: feculent peritonitis limited to left abdominal contamination by omentum. stapled anastomosis was intact, there was a perforated diverticulum distal on the rectal stump. irrigated with 6 liters. end transverse colostomy created in LUQ. all counts correct. Post-Operative Diagnosis: Other (Perforated diverticulitis distal rectal stump) Surgeon: Horacio Ventura Code(s): D49.0 - NEOPLASM OF UNSPECIFIED BEHAVIOR OF DIGESTIVE SYSTEM (3) Hypothyroid Assessment/Plan: -same iv synthroid while npo Code(s): E03.9 - HYPOTHYROIDISM, UNSPECIFIED (4) Afib Assessment/Plan: -Rate better today -Continue with meds -Ac on hold for now -Cardio on board Code(s): I48.91 - UNSPECIFIED ATRIAL FIBRILLATION (5) Anemia Assessment/Plan: follow labs Code(s): D64.9 - ANEMIA, UNSPECIFIED (6) Edema Assessment/Plan: -Duplex of LE -maybe due to low albumin -Heparin sq Code(s): R60.9 - EDEMA, UNSPECIFIED
[2018-02-25] MEDS: HEPARIN NA (PORCINE) 5,000 UNITS/ML 1ML VIAL SQ SCH ×2 (11:50→21:11)
--- NOTE | 2018-02-25 11:59 | PN ---
Progress Note, Physician History of Present Illness: Pt seen and examined, events noted. Pt is alert and states he feels well. Denies abd pain/chills. mild temperature elevation/leukocytosis post-op. - Current Medication List Current Medications: Active Medications Acetaminophen (Tylenol -) 650 mg PO Q4H PRN PRN Reason: FEVER Last Admin: 02/24/18 22:37 Dose: 650 mg Amino Acids (Prosource No Carb Liquid Pkt) 30 ml PO BID@0800,1730 [facility] Last Admin: 02/25/18 10:00 Dose: 30 ml Benzocaine/Menthol (Cepacol Lozenge -) 1 each MM PRN PRN PRN Reason: SORE THROAT Diphenhydramine HCl (Benadryl Injection -) 12.5 mg IVPUSH ONCE PRN PRN Reason: FOR ITCHING Heparin Sodium (Porcine) (Heparin -) 5,000 unit SQ BID [facility] Fluconazole (Diflucan 200 Mg/Ns Premixed Ivpb -) 100 mls @ 100 mls/hr IVPB DAILY [facility] Last Admin: 02/25/18 10:00 Dose: 100 mls/hr Piperacillin Sod/Tazobactam (Sod 3.375 gm/ Dextrose) 50 mls @ 100 mls/hr IVPB Q8H-IV [facility]; Protocol Last Admin: 02/25/18 10:00 Dose: 100 mls/hr Lactated Ringer's (Lactated Ringers Solution) 1,000 ml in 1,000 mls @ 75 mls/ hr IV ASDIR [facility] Last Admin: 02/24/18 22:38 Dose: 75 mls/hr Levothyroxine Sodium (Synthroid -) 112 mcg PO DAILY@0700 [facility] Last Admin: 02/25/18 06:39 Dose: 112 mcg Morphine Sulfate (Msir -) 15 mg PO Q6HPO PRN PRN Reason: PAIN LEVEL 7 - 10 Ondansetron HCl (Zofran Injection) 8 mg IVPB Q8H PRN PRN Reason: NAUSEA Last Admin: 02/23/18 11:55 Dose: 8 mg Pantoprazole Sodium (Protonix -) 40 mg PO DAILY [facility] Last Admin: 02/25/18 10:00 Dose: 40 mg Promethazine HCl (Phenergan Injection -) 12.5 mg IVPB Q6H PRN PRN Reason: NAUSEA-FOR RESCUE AFTER 15 MIN Simethicone (Mylicon -) 80 mg PO Q4H PRN PRN Reason: GAS Last Admin: 02/24/18 15:03 Dose: 80 mg - Objective Vital Signs: Vital Signs Temperature 97.8 F 02/25/18 02:31 Pulse Rate 116 H 02/25/18 02:31 Respiratory Rate 18 02/25/18 02:31 Blood Pressure 110/68 02/25/18 02:31 O2 Sat by Pulse Oximetry (%) 95 02/24/18 21:00 Constitutional: Yes: No Distress, Calm Cardiovascular: Yes: Regular Rate and Rhythm Respiratory: Yes: Regular Gastrointestinal: Yes: Soft, Distention, Other (colostomy functioning) Extremities: Yes: WNL Wound/Incision: Yes: Other (dressing intact, minimal serosanguinous d/c) Neurological: Yes: Alert, Oriented Labs: CBC, BMP 02/24/18 06:30 02/25/18 08:00 INR, PTT INR 1.33 (0.83-1.09) H 02/21/18 20:30 - ....Imaging Cat Scan: Report Reviewed Problem List - Problems (1) Afib Code(s): I48.91 - UNSPECIFIED ATRIAL FIBRILLATION (2) Hypothyroid Code(s): E03.9 - HYPOTHYROIDISM, UNSPECIFIED (3) Sigmoid thickening Code(s): K63.9 - DISEASE OF INTESTINE, UNSPECIFIED Assessment/Plan Sigmoid diverticulitis/abscess ileus s/p bowel resection/colostomy POD#1 -- continue current antibiotics -- mild fever/leukocytosis, post-op -- continue monitor surgery following pt stable at this time
--- NOTE | 2018-02-25 18:02 | PN ---
Progress Note, Physician Chief Complaint: abdominal pain and colon mass History of Present Illness: 57 yo male presenting to [facility] ER via private auto complaining of occasional lower left abdominal discomfort. stable post operatively after second laparotomy. Gas and air in the colostomy this morning - Current Medication List Current Medications: Active Medications Acetaminophen (Tylenol -) 650 mg PO Q4H PRN PRN Reason: FEVER Last Admin: 02/24/18 22:37 Dose: 650 mg Amino Acids (Prosource No Carb Liquid Pkt) 30 ml PO BID@0800,1730 [facility] Last Admin: 02/25/18 17:47 Dose: 30 ml Amino Acids (Prosource No Carb Liquid Pkt) 30 ml PO BID@0800,1730 [facility] Last Admin: 02/25/18 17:48 Dose: 30 ml Benzocaine/Menthol (Cepacol Lozenge -) 1 each MM PRN PRN PRN Reason: SORE THROAT Diphenhydramine HCl (Benadryl Injection -) 12.5 mg IVPUSH ONCE PRN PRN Reason: FOR ITCHING Heparin Sodium (Porcine) (Heparin -) 5,000 unit SQ BID [facility] Last Admin: 02/25/18 11:50 Dose: 5,000 unit Fluconazole (Diflucan 200 Mg/Ns Premixed Ivpb -) 100 mls @ 100 mls/hr IVPB DAILY [facility] Last Admin: 02/25/18 10:00 Dose: 100 mls/hr Piperacillin Sod/Tazobactam (Sod 3.375 gm/ Dextrose) 50 mls @ 100 mls/hr IVPB Q8H-IV [facility]; Protocol Last Admin: 02/25/18 17:47 Dose: 100 mls/hr Lactated Ringer's (Lactated Ringers Solution) 1,000 ml in 1,000 mls @ 75 mls/ hr IV ASDIR [facility] Last Admin: 02/24/18 22:38 Dose: 75 mls/hr Levothyroxine Sodium (Synthroid -) 112 mcg PO DAILY@0700 [facility] Last Admin: 02/25/18 06:39 Dose: 112 mcg Morphine Sulfate (Msir -) 15 mg PO Q6HPO PRN PRN Reason: PAIN LEVEL 7 - 10 Ondansetron HCl (Zofran Injection) 8 mg IVPB Q8H PRN PRN Reason: NAUSEA Last Admin: 02/23/18 11:55 Dose: 8 mg Pantoprazole Sodium (Protonix -) 40 mg PO DAILY [facility] Last Admin: 02/25/18 10:00 Dose: 40 mg Promethazine HCl (Phenergan Injection -) 12.5 mg IVPB Q6H PRN PRN Reason: NAUSEA-FOR RESCUE AFTER 15 MIN Simethicone (Mylicon -) 80 mg PO Q4H PRN PRN Reason: GAS Last Admin: 02/24/18 15:03 Dose: 80 mg - Objective Vital Signs: Vital Signs Temperature 98.9 F 02/25/18 13:47 Pulse Rate 80 02/25/18 13:47 Respiratory Rate 18 02/25/18 13:47 Blood Pressure 123/75 02/25/18 13:47 O2 Sat by Pulse Oximetry (%) 95 02/24/18 21:00 Vital Signs Period Temp Pulse Resp BP Sys/Cavanaugh Pulse Ox Last 24 Hr 98.1 F-98.9 F 77-87 -18 122-132/71-75 95 Intake & Output 02/25/18 02/26/18 02/26/18 23:59 07:59 15:59 Output Total 200 Balance -200 Output: Urine 200 Void 200 Other: Voiding Method Toilet Toilet # Unmeasured Voids Void 1 Bowel Movement Yes No Constitutional: Yes: Well Nourished, No Distress, Calm Eyes: Yes: Conjunctiva Clear, EOM Intact HENT: Yes: Atraumatic, Normocephalic Neck: Yes: Supple, Trachea Midline Cardiovascular: Yes: Regular Rate and Rhythm, S1, S2 Respiratory: Yes: Regular, CTA Bilaterally Gastrointestinal: Yes: Normal Bowel Sounds, Soft, Abdomen, Obese, Tenderness. No: Tenderness, Epigastrium, Tenderness, Rebound ...Rectal Exam: Yes: Deferred Genitourinary: No: CVA Tenderness - Left, CVA Tenderness - Right Musculoskeletal: No: Muscle Pain, Muscle Weakness Extremities: No: Cool, Cyanosis, Erythema Edema: No Peripheral Pulses WNL: Yes Peripheral Pulses: Left Radial: 2+, Right Radial: 2+, Left Doralis Pedis: 2+, Right Dorsalis Pedis: 2+ Integumentary: No: Jaundice, Rash Wound/Incision: Yes: Clean/Dry, Unapproximated. No: Draining, Reddened, Bleeding Neurological: Yes: Alert, Oriented Psychiatric: Yes: Alert, Oriented Labs: CBC, BMP 02/24/18 06:30 02/25/18 08:00 INR, PTT INR 1.33 (0.83-1.09) H 02/21/18 20:30 Problem List - Problems (1) Neoplasm of sigmoid colon Assessment/Plan: POD#11 s/p sigmoid colectomy and primary anastomisis (due to sigmoid colon mass ) POD#4 s/p completion left colectomy and amado's (due to perforated diverticulum distal to anatomisis), gas and liquid stool now in the colostomy, Leuknnocystosis >15 (>85%N) monitored setting Diet as tolerated IVF hydration replete electrolytes - calcium antiemetic Medical oncology workup OOB and ambulate encourage IS physical therapy evaluation will follow Code(s): D49.0 - NEOPLASM OF UNSPECIFIED BEHAVIOR OF DIGESTIVE SYSTEM (2) Sigmoid thickening Code(s): K63.9 - DISEASE OF INTESTINE, UNSPECIFIED (3) Abdominal pain Code(s): R10.9 - UNSPECIFIED ABDOMINAL PAIN Qualifiers: Abdominal location: left lower quadrant Qualified Code(s): R10.32 - Left lower quadrant pain (4) Abnormal colonoscopy Code(s): R93.3 - ABNORMAL FINDINGS ON DX IMAGING OF PRT DIGESTIVE TRACT
[2018-02-25] MEDS: LACTATED RINGERS SOLUTION 1,000 ML/1,000 ML INFUS.BAG IV SCH (19:30)
[2018-02-26] MEDS ORDERED: DEXTROSE 5%-WATER - 50 ML IVPB ONE ×3 (01:10→17:57)
[2018-02-26] MEDS ORDERED: PIPERACILLIN/TAZOBACTAM 3.375 GM VIAL IVPB ONE ×3 (01:10→17:56)
[2018-02-26] MEDS: PIPERACILLIN/TAZOB 3.375 GM 3.375 GM in DEXTROSE 5%-WATER - 50 ML IVPB SCH ×3 (02:48→18:01)
[2018-02-26] MEDS ORDERED: PT OWN MED DRAWER 7, Y5N ONE ×2 (06:02→10:27)
[2018-02-26] MEDS: LEVOTHYROXINE NA 112 MCG TABLET (FP) PO SCH (06:23)
[2018-02-26] MEDS: AMINO ACIDS/PROTEIN HYDROLYS 30 ML LIQUID.PKT PO SCH ×4 (08:00→18:00)
[2018-02-26 08:39] LABS: BASO % 0.2 % (0-2.0); EOS % 0.9 % (0-4.5); HEMATOCRIT 29.4 % (35.4-49); HEMOGLOBIN 9.2 GM/dL (11.7-16.9); LYMPH % 7.7 % (8-40); MCH 25.5 pg (25.7-33.7); MCHC 31.4 g/dl (32.0-35.9); MEAN CELL VOLUME 81.1 fl (80-96); MEAN PLT VOLUME 6.9 fl (7.5-11.1); MONO % 4.8 % (3.8-10.2); NEUT % 86.4 % (42.8-82.8); PLATELET COUNT 543 K/MM3 (134-434); RBC 3.62 M/mm3 (4.00-5.60); RDW 20.1 % (11.9-15.9); WHITE BLOOD COUNT 15.8 K/mm3 (4.0-10.0)
[2018-02-26] MEDS: HEPARIN NA (PORCINE) 5,000 UNITS/ML 1ML VIAL SQ SCH ×2 (10:21→22:12)
[2018-02-26] MEDS: PANTOPRAZOLE 40 MG TABLET (FP) PO SCH (10:22)
[2018-02-26] MEDS: FLUCONAZOLE 200 MG/NS 100 ML IVPB SCH (10:28)
--- NOTE | 2018-02-26 11:21 | PN ---
Progress Note, Physician - Current Medication List Current Medications: Active Medications Acetaminophen (Tylenol -) 650 mg PO Q4H PRN PRN Reason: FEVER Last Admin: 02/24/18 22:37 Dose: 650 mg Amino Acids (Prosource No Carb Liquid Pkt) 30 ml PO BID@0800,1730 [facility] Last Admin: 02/26/18 08:00 Dose: 30 ml Amino Acids (Prosource No Carb Liquid Pkt) 30 ml PO BID@0800,1730 [facility] Last Admin: 02/26/18 08:00 Dose: 30 ml Benzocaine/Menthol (Cepacol Lozenge -) 1 each MM PRN PRN PRN Reason: SORE THROAT Diphenhydramine HCl (Benadryl Injection -) 12.5 mg IVPUSH ONCE PRN PRN Reason: FOR ITCHING Heparin Sodium (Porcine) (Heparin -) 5,000 unit SQ BID [facility] Last Admin: 02/26/18 10:21 Dose: 5,000 unit Fluconazole (Diflucan 200 Mg/Ns Premixed Ivpb -) 100 mls @ 100 mls/hr IVPB DAILY [facility] Last Admin: 02/26/18 10:28 Dose: 100 mls/hr Piperacillin Sod/Tazobactam (Sod 3.375 gm/ Dextrose) 50 mls @ 100 mls/hr IVPB Q8H-IV [facility]; Protocol Last Admin: 02/26/18 10:21 Dose: 100 mls/hr Lactated Ringer's (Lactated Ringers Solution) 1,000 ml in 1,000 mls @ 75 mls/ hr IV ASDIR [facility] Last Admin: 02/24/18 22:38 Dose: 75 mls/hr Levothyroxine Sodium (Synthroid -) 112 mcg PO DAILY@0700 [facility] Last Admin: 02/26/18 06:23 Dose: 112 mcg Morphine Sulfate (Msir -) 15 mg PO Q6HPO PRN PRN Reason: PAIN LEVEL 7 - 10 Ondansetron HCl (Zofran Injection) 8 mg IVPB Q8H PRN PRN Reason: NAUSEA Last Admin: 02/23/18 11:55 Dose: 8 mg Pantoprazole Sodium (Protonix -) 40 mg PO DAILY [facility] Last Admin: 02/26/18 10:22 Dose: 40 mg Promethazine HCl (Phenergan Injection -) 12.5 mg IVPB Q6H PRN PRN Reason: NAUSEA-FOR RESCUE AFTER 15 MIN Simethicone (Mylicon -) 80 mg PO Q4H PRN PRN Reason: GAS Last Admin: 02/24/18 15:03 Dose: 80 mg - Objective Vital Signs: Vital Signs Temperature 98.1 F 02/26/18 05:15 Pulse Rate 77 02/26/18 05:15 Respiratory Rate 18 02/26/18 05:15 Blood Pressure 132/75 02/26/18 05:15 O2 Sat by Pulse Oximetry (%) 95 02/25/18 21:00 Cardiovascular: Yes: S1, S2 Respiratory: Yes: Regular, CTA Bilaterally Gastrointestinal: Yes: Normal Bowel Sounds, Soft, Distention, Other (colostomy) Labs: CBC, BMP 02/26/18 07:20 02/25/18 08:00 INR, PTT INR 1.33 (0.83-1.09) H 02/21/18 20:30 Problem List - Problems (1) Abdominal pain Assessment/Plan: -Pain resolved -S/P hemicolectomy Operative Date: 02/21/18 Pre-Operative Diagnosis: Acute abdomen, feculent peritonitis Operation: exploratory lapartotomy, abdominal washout, completion left colectomy , end colostomy (transverse colon) Findings: feculent peritonitis limited to left abdominal contamination by omentum. stapled anastomosis was intact, there was a perforated diverticulum distal on the rectal stump. irrigated with 6 liters. end transverse colostomy created in LUQ. all counts correct. Post-Operative Diagnosis: Other (Perforated diverticulitis distal rectal stump) Surgeon: Horacio Ventura -Surgical follow up -IV abx Code(s): R10.9 - UNSPECIFIED ABDOMINAL PAIN Qualifiers: Abdominal location: left lower quadrant Qualified Code(s): R10.32 - Left lower quadrant pain (2) Neoplasm of sigmoid colon Assessment/Plan: Pre-Operative Diagnosis: abdominal pain and sigmoid colon mass Operation: sigmoid colectomy Findings: sigmoid colon with mass, tatooed stitch ashraf proximal, side to side stapled anastomosis Post-Operative Diagnosis: Same as Pre-op Surgeon: Horacio Ventura diet and further plan per surgery Operative Date: 02/21/18 Pre-Operative Diagnosis: Acute abdomen, feculent peritonitis Operation: exploratory lapartotomy, abdominal washout, completion left colectomy , end colostomy (transverse colon) Findings: feculent peritonitis limited to left abdominal contamination by omentum. stapled anastomosis was intact, there was a perforated diverticulum distal on the rectal stump. irrigated with 6 liters. end transverse colostomy created in LUQ. all counts correct. Post-Operative Diagnosis: Other (Perforated diverticulitis distal rectal stump) Surgeon: Horacio Ventura Code(s): D49.0 - NEOPLASM OF UNSPECIFIED BEHAVIOR OF DIGESTIVE SYSTEM (3) Hypothyroid Assessment/Plan: -same iv synthroid while npo Code(s): E03.9 - HYPOTHYROIDISM, UNSPECIFIED (4) Afib Assessment/Plan: -Rate better today -Continue with meds -Ac on hold for now -Cardio on board Code(s): I48.91 - UNSPECIFIED ATRIAL FIBRILLATION (5) Anemia Assessment/Plan: follow labs Code(s): D64.9 - ANEMIA, UNSPECIFIED (6) Edema Assessment/Plan: -Duplex of LE no dvt -maybe due to low albumin -Heparin sq Code(s): R60.9 - EDEMA, UNSPECIFIED (7) Leukocytosis Assessment/Plan: -follow Labs -Id follow up Code(s): D72.829 - ELEVATED WHITE BLOOD CELL COUNT, UNSPECIFIED
[2018-02-26 11:25] LABS: ANISOCYTOSIS 1+; MACROCYTOSIS 0; PLATELET ESTIMATE INCREASED
--- NOTE | 2018-02-26 11:56 | PN ---
Progress Note, Physician Chief Complaint: abdominal pain and colon mass History of Present Illness: 57 yo male presenting to [facility] ER via private auto complaining of occasional lower left abdominal discomfort. stable post operatively after second laparotomy. Gas and air in the colostomy this morning, there was a gush of yellow effluent from the lower abdominal wound today, we were called to bedside by the nurse. - Current Medication List Current Medications: Active Medications Acetaminophen (Tylenol -) 650 mg PO Q4H PRN PRN Reason: FEVER Last Admin: 02/24/18 22:37 Dose: 650 mg Amino Acids (Prosource No Carb Liquid Pkt) 30 ml PO BID@0800,1730 [facility] Last Admin: 02/26/18 08:00 Dose: 30 ml Amino Acids (Prosource No Carb Liquid Pkt) 30 ml PO BID@0800,1730 [facility] Last Admin: 02/26/18 08:00 Dose: 30 ml Benzocaine/Menthol (Cepacol Lozenge -) 1 each MM PRN PRN PRN Reason: SORE THROAT Diphenhydramine HCl (Benadryl Injection -) 12.5 mg IVPUSH ONCE PRN PRN Reason: FOR ITCHING Heparin Sodium (Porcine) (Heparin -) 5,000 unit SQ BID [facility] Last Admin: 02/26/18 10:21 Dose: 5,000 unit Fluconazole (Diflucan 200 Mg/Ns Premixed Ivpb -) 100 mls @ 100 mls/hr IVPB DAILY [facility] Last Admin: 02/26/18 10:28 Dose: 100 mls/hr Piperacillin Sod/Tazobactam (Sod 3.375 gm/ Dextrose) 50 mls @ 100 mls/hr IVPB Q8H-IV JERED; Protocol Last Admin: 02/26/18 10:21 Dose: 100 mls/hr Lactated Ringer's (Lactated Ringers Solution) 1,000 ml in 1,000 mls @ 75 mls/ hr IV ASDIR [facility] Last Admin: 02/24/18 22:38 Dose: 75 mls/hr Levothyroxine Sodium (Synthroid -) 112 mcg PO DAILY@0700 [facility] Last Admin: 02/26/18 06:23 Dose: 112 mcg Morphine Sulfate (Msir -) 15 mg PO Q6HPO PRN PRN Reason: PAIN LEVEL 7 - 10 Ondansetron HCl (Zofran Injection) 8 mg IVPB Q8H PRN PRN Reason: NAUSEA Last Admin: 02/23/18 11:55 Dose: 8 mg Pantoprazole Sodium (Protonix -) 40 mg PO DAILY [facility] Last Admin: 02/26/18 10:22 Dose: 40 mg Promethazine HCl (Phenergan Injection -) 12.5 mg IVPB Q6H PRN PRN Reason: NAUSEA-FOR RESCUE AFTER 15 MIN Simethicone (Mylicon -) 80 mg PO Q4H PRN PRN Reason: GAS Last Admin: 02/24/18 15:03 Dose: 80 mg - Objective Vital Signs: Vital Signs Temperature 98.1 F 02/26/18 05:15 Pulse Rate 77 02/26/18 05:15 Respiratory Rate 18 02/26/18 05:15 Blood Pressure 132/75 02/26/18 05:15 O2 Sat by Pulse Oximetry (%) 95 02/25/18 21:00 Vital Signs Period Temp Pulse Resp BP Sys/Cavanaugh Pulse Ox Last 24 Hr 98.1 F-98.9 F 77-87 - 122-132/71-75 95 Intake & Output 02/25/18 02/26/18 02/26/18 23:59 07:59 15:59 Output Total 200 Balance -200 Output: Urine 200 Void 200 Other: Voiding Method Toilet Toilet # Unmeasured Voids Void 1 Bowel Movement Yes No Constitutional: Yes: Well Nourished, No Distress, Calm Eyes: Yes: Conjunctiva Clear, EOM Intact HENT: Yes: Atraumatic, Normocephalic Neck: Yes: Supple, Trachea Midline Cardiovascular: Yes: Regular Rate and Rhythm, S1, S2 Respiratory: Yes: Regular, CTA Bilaterally Gastrointestinal: Yes: Normal Bowel Sounds, Soft, Abdomen, Obese. No: Tenderness, Tenderness, Epigastrium, Tenderness, Rebound ...Rectal Exam: Yes: Deferred Genitourinary: No: CVA Tenderness - Left, CVA Tenderness - Right Musculoskeletal: No: Muscle Pain, Muscle Weakness Extremities: No: Cool, Cyanosis Edema: No Peripheral Pulses WNL: Yes Peripheral Pulses: Left Radial: 2+, Right Radial: 2+, Left Doralis Pedis: 2+, Right Dorsalis Pedis: 2+ Integumentary: No: Jaundice, Rash Neurological: No: Alert, Oriented Psychiatric: No: Alert, Oriented Labs: CBC, BMP 02/26/18 07:20 02/25/18 08:00 INR, PTT INR 1.33 (0.83-1.09) H 02/21/18 20:30 Microbiology 02/22/18 21:40 Blood - Peripheral Venous Blood Culture - Preliminary NO GROWTH OBTAINED AFTER 72 HOURS, INCUBATION TO CONTINUE FOR 2 DAYS. 02/22/18 20:15 Blood - Peripheral Venous Blood Culture - Preliminary NO GROWTH OBTAINED AFTER 72 HOURS, INCUBATION TO CONTINUE FOR 2 DAYS. 02/24/18 14:50 Blood - Peripheral Venous Blood Culture - Preliminary NO GROWTH OBTAINED AFTER 24 HOURS, INCUBATION TO CONTINUE FOR 4 DAYS. 02/24/18 14:30 Blood - Peripheral Venous Blood Culture - Preliminary NO GROWTH OBTAINED AFTER 24 HOURS, INCUBATION TO CONTINUE FOR 4 DAYS. 02/20/18 14:30 Abscess Gram Stain - Final 02/20/18 14:30 Abscess Body Fluid Culture - Final Escherichia Coli Staphylococcus Aureus Yeast Like Organism 02/20/18 14:30 Abscess Anaerobic Culture - Final Bacteroides Fragilis 02/22/18 23:24 Urine - Urine Mazariegos Urine Culture - Final NO GROWTH OBTAINED 02/17/18 20:00 Blood - Peripheral Venous Blood Culture - Final NO GROWTH AFTER 5 DAYS INCUBATION 02/17/18 17:00 Blood - Peripheral Venous Blood Culture - Final NO GROWTH AFTER 5 DAYS INCUBATION 02/17/18 16:40 Urine - Urine Clean Catch Urine Culture - Final NO GROWTH OBTAINED - ....Imaging Cat Scan: Report Reviewed, Image Reviewed (left sided distal contrast blush.) Problem List - Problems (1) Neoplasm of sigmoid colon Assessment/Plan: POD#12 s/p sigmoid colectomy and primary anastomosis (due to sigmoid colon mass ) POD#5 s/p completion left colectomy and amado's (due to perforated diverticulum distal to anatomosis), gas and liquid stool now in the colostomy, Leukocystosis >15 (>85%N). Large gush of urine from the abdomen is suspicious for a bladder or ureteral injury. CT Urogram shows left sided distal ureteral blush of contrast. He will be assessed by Dr. Kwok monitored setting Make NPO and mazariegos placement urgent urology evaluation IVF hydration replete electrolytes - calcium antiemetic Medical oncology workup OOB and ambulate encourage IS physical therapy evaluation will follow Code(s): D49.0 - NEOPLASM OF UNSPECIFIED BEHAVIOR OF DIGESTIVE SYSTEM (2) Sigmoid thickening Code(s): K63.9 - DISEASE OF INTESTINE, UNSPECIFIED (3) Abdominal pain Code(s): R10.9 - UNSPECIFIED ABDOMINAL PAIN Qualifiers: Abdominal location: left lower quadrant Qualified Code(s): R10.32 - Left lower quadrant pain (4) Abnormal colonoscopy Code(s): R93.3 - ABNORMAL FINDINGS ON DX IMAGING OF PRT DIGESTIVE TRACT
--- NOTE | 2018-02-26 13:37 | PN ---
Progress Note, Physician History of Present Illness: stable no complaints remaining afebrile wbc has jumped up - Current Medication List Current Medications: Active Medications Acetaminophen (Tylenol -) 650 mg PO Q4H PRN PRN Reason: FEVER Last Admin: 02/24/18 22:37 Dose: 650 mg Amino Acids (Prosource No Carb Liquid Pkt) 30 ml PO BID@0800,1730 [facility] Last Admin: 02/26/18 08:00 Dose: 30 ml Amino Acids (Prosource No Carb Liquid Pkt) 30 ml PO BID@0800,1730 [facility] Last Admin: 02/26/18 08:00 Dose: 30 ml Benzocaine/Menthol (Cepacol Lozenge -) 1 each MM PRN PRN PRN Reason: SORE THROAT Diphenhydramine HCl (Benadryl Injection -) 12.5 mg IVPUSH ONCE PRN PRN Reason: FOR ITCHING Heparin Sodium (Porcine) (Heparin -) 5,000 unit SQ BID [facility] Last Admin: 02/26/18 10:21 Dose: 5,000 unit Fluconazole (Diflucan 200 Mg/Ns Premixed Ivpb -) 100 mls @ 100 mls/hr IVPB DAILY [facility] Last Admin: 02/26/18 10:28 Dose: 100 mls/hr Piperacillin Sod/Tazobactam (Sod 3.375 gm/ Dextrose) 50 mls @ 100 mls/hr IVPB Q8H-IV JERED; Protocol Last Admin: 02/26/18 10:21 Dose: 100 mls/hr Lactated Ringer's (Lactated Ringers Solution) 1,000 ml in 1,000 mls @ 75 mls/ hr IV ASDIR [facility] Last Admin: 02/24/18 22:38 Dose: 75 mls/hr Levothyroxine Sodium (Synthroid -) 112 mcg PO DAILY@0700 [facility] Last Admin: 02/26/18 06:23 Dose: 112 mcg Morphine Sulfate (Msir -) 15 mg PO Q6HPO PRN PRN Reason: PAIN LEVEL 7 - 10 Ondansetron HCl (Zofran Injection) 8 mg IVPB Q8H PRN PRN Reason: NAUSEA Last Admin: 02/23/18 11:55 Dose: 8 mg Pantoprazole Sodium (Protonix -) 40 mg PO DAILY [facility] Last Admin: 02/26/18 10:22 Dose: 40 mg Promethazine HCl (Phenergan Injection -) 12.5 mg IVPB Q6H PRN PRN Reason: NAUSEA-FOR RESCUE AFTER 15 MIN Simethicone (Mylicon -) 80 mg PO Q4H PRN PRN Reason: GAS Last Admin: 02/24/18 15:03 Dose: 80 mg - Objective Vital Signs: Vital Signs Temperature 98.1 F 02/26/18 05:15 Pulse Rate 77 02/26/18 05:15 Respiratory Rate 18 02/26/18 05:15 Blood Pressure 132/75 02/26/18 05:15 O2 Sat by Pulse Oximetry (%) 95 02/25/18 21:00 Constitutional: Yes: No Distress, Calm Cardiovascular: Yes: Regular Rate and Rhythm Respiratory: Yes: Regular, CTA Bilaterally Gastrointestinal: Yes: Soft, Other (colostomy functioning) Musculoskeletal: Yes: WNL Extremities: Yes: WNL Neurological: Yes: Alert, Oriented Psychiatric: Yes: Alert, Oriented Labs: CBC, BMP 02/26/18 07:20 02/25/18 08:00 INR, PTT INR 1.33 (0.83-1.09) H 02/21/18 20:30 Assessment/Plan Problem List - Problems (1) Neoplasm of sigmoid colon Code(s): D49.0 - NEOPLASM OF UNSPECIFIED BEHAVIOR OF DIGESTIVE SYSTEM (2) Sigmoid thickening Code(s): K63.9 - DISEASE OF INTESTINE, UNSPECIFIED (3) Abdominal pain Code(s): R10.9 - UNSPECIFIED ABDOMINAL PAIN Qualifiers: Abdominal location: left lower quadrant Qualified Code(s): R10.32 - Left lower quadrant pain (4) Abnormal colonoscopy Code(s): R93.3 - ABNORMAL FINDINGS ON DX IMAGING OF PRT DIGESTIVE TRACT fever abd distension patients wbc increasing inspite of abx plan will continue abx rest as per the team close watch monitor wbc
[2018-02-26 16:42] LABS: URINE APPEARANCE CLEAR; URINE BILIRUBIN NEGATIVE (<2.0 mg/dL); URINE COLOR LTYELLOW; URINE GLUCOSE (UA) NEGATIVE (NEGATIVE); URINE KETONE NEGATIVE (NEGATIVE); URINE LEUK ESTERASE NEGATIVE (NEGATIVE); URINE NITRITE NEGATIVE (NEGATIVE); URINE PROTEIN NEGATIVE (NEGATIVE); URINE UROBILINOGEN NEGATIVE mg/dL (0.2-1.0)
[2018-02-26 16:45] LABS: URINE BACTERIA RARE /hpf (NONE SEEN); URINE MUCUS RARE
--- NOTE | 2018-02-26 19:38 | CON.GU ---
Consult Consult Specialty:: Urology Referred by:: Dr Ventura Reason for Consultation:: Urinary extravasation - History of Present Illness Chief Complaint: urinoma History of Present Illness: 57 yo male s/p hemicolectomy w hx of diverticular disease and colon neoplasm on 02/21/2018 called for urine from lower abdominal wound. pt w no known prior urologic procedureswas voiding spontaneously clear urine. - Past Medical History Renal/: Yes: BPH Endocrine: Yes: Hypothyroidism - Alcohol/Substance Use Hx Alcohol Use: No - Smoking History Smoking history: Unknown if ever smoked Have you smoked in the past 12 months: No - Social History ADL: Independent History of Recent Travel: No Home Medications - Allergies Allergies/Adverse Reactions: Allergies Allergy/AdvReac Type Severity Reaction Status Date / Time No Known Allergies Allergy Verified 02/13/18 09:20 - Home Medications Home Medications: Ambulatory Orders Levothyroxine [Synthroid -] 100 mcg PO DAILY 02/13/18 Family Disease History - Family Disease History Family Disease History: Heart Disease: Father (mi age 70) Physical Exam- Vital Signs: Vital Signs Temperature 98.4 F 02/26/18 18:07 Pulse Rate 76 02/26/18 18:07 Respiratory Rate 16 02/26/18 18:07 Blood Pressure 126/70 02/26/18 18:07 O2 Sat by Pulse Oximetry (%) 95 02/26/18 09:00 Gastrointestinal: Yes: Other (slight distention non tender wound healing) Labs: CBC, BMP 02/26/18 07:20 02/25/18 08:00 Imaging - Results Cat Scan: Report Reviewed, Image Reviewed Problem List - Problems (1) Left ureteral injury Assessment/Plan: 57 yo male s/p hemicolectomy for colon Ca 02/21 found to have left ureteral extravasation on ct urogram today. Case discussed earlier w Dr Ventura instructed to arrange left pcn and to place mazariegos to sd will have IR attempt to place antegrade stent after approx 48 hours of nt drainage. Will discuss case w IR and reviewing antegrade films during NT placement. Pt on iv abx to continue same Code(s): S37.10XA - UNSPECIFIED INJURY OF URETER, INITIAL ENCOUNTER
[2018-02-26] MEDS: LACTATED RINGERS SOLUTION 1,000 ML/1,000 ML INFUS.BAG IV SCH (23:32)
[2018-02-27] MEDS ORDERED: DEXTROSE 5%-WATER - 50 ML IVPB ONE ×3 (01:46→17:09)
[2018-02-27] MEDS ORDERED: PIPERACILLIN/TAZOBACTAM 3.375 GM VIAL IVPB ONE ×3 (01:46→17:08)
[2018-02-27] MEDS: PIPERACILLIN/TAZOB 3.375 GM 3.375 GM in DEXTROSE 5%-WATER - 50 ML IVPB SCH ×3 (01:54→17:48)
[2018-02-27 07:22] LABS: BASO % 0.3 % (0-2.0); EOS % 1.7 % (0-4.5); HEMOGLOBIN 8.7 GM/dL (11.7-16.9); LYMPH % 7.1 % (8-40); MCH 26.2 pg (25.7-33.7); MCHC 32.2 g/dl (32.0-35.9); MEAN CELL VOLUME 81.4 fl (80-96); MEAN PLT VOLUME 6.9 fl (7.5-11.1); MONO % 4.6 % (3.8-10.2); NEUT % 86.3 % (42.8-82.8); PLATELET COUNT 544 K/MM3 (134-434); RBC 3.32 M/mm3 (4.00-5.60)
[2018-02-27 07:55] LABS: ALBUMIN 1.4 g/dl (3.4-5.0); ALK PHOS 135 U/L (45-117); ANION GAP 7 MMOL/L (8-16); BILIRUBIN,TOTAL 0.6 mg/dL (0.2-1); BLOOD UREA NITROGEN 11 mg/dL (7-18); CHLORIDE 105 mmol/L (98-107); CO2 25 mmol/L (21-32); CREATININE 0.6 mg/dL (0.55-1.3); GLUCOSE,RANDOM 89 mg/dL (74-106); POTASSIUM 4.1 mmol/L (3.5-5.1); SGOT/AST 36 U/L (15-37); SGPT/ALT 39 U/L (13-61); SODIUM 137 mmol/L (136-145); TOT PROT 4.9 g/dl (6.4-8.2)
[2018-02-27] MEDS: AMINO ACIDS/PROTEIN HYDROLYS 30 ML LIQUID.PKT PO SCH ×2 (08:00→17:49)
[2018-02-27] MEDS: LEVOTHYROXINE NA 112 MCG TABLET (FP) PO SCH (08:01)
[2018-02-27 08:16] LABS: CALCIUM 6.9 mg/dL (8.5-10.1)
[2018-02-27] MEDS: PANTOPRAZOLE 40 MG TABLET (FP) PO SCH (09:00)
[2018-02-27] MEDS: HEPARIN NA (PORCINE) 5,000 UNITS/ML 1ML VIAL SQ SCH ×2 (09:00→21:54)
[2018-02-27] MEDS ORDERED: PT OWN MED DRAWER 7, Y5N ONE (09:18)
--- NOTE | 2018-02-27 10:21 | PN ---
Progress Note (short form) - Note Progress Note: IV placements of left nephrostomy tube today.
--- NOTE | 2018-02-27 10:30 | PN ---
Progress Note, Physician History of Present Illness: patient with urinary leak seen by urology - Current Medication List Current Medications: Active Medications Acetaminophen (Tylenol -) 650 mg PO Q4H PRN PRN Reason: FEVER Last Admin: 02/24/18 22:37 Dose: 650 mg Amino Acids (Prosource No Carb Liquid Pkt) 30 ml PO BID@0800,1730 [facility] Last Admin: 02/27/18 08:00 Dose: Not Given Benzocaine/Menthol (Cepacol Lozenge -) 1 each MM PRN PRN PRN Reason: SORE THROAT Diphenhydramine HCl (Benadryl Injection -) 12.5 mg IVPUSH ONCE PRN PRN Reason: FOR ITCHING Heparin Sodium (Porcine) (Heparin -) 5,000 unit SQ BID [facility] Last Admin: 02/26/18 22:12 Dose: 5,000 unit Fluconazole (Diflucan 200 Mg/Ns Premixed Ivpb -) 100 mls @ 100 mls/hr IVPB DAILY [facility] Last Admin: 02/26/18 10:28 Dose: 100 mls/hr Piperacillin Sod/Tazobactam (Sod 3.375 gm/ Dextrose) 50 mls @ 100 mls/hr IVPB Q8H-IV [facility]; Protocol Last Admin: 02/27/18 01:54 Dose: 100 mls/hr Lactated Ringer's (Lactated Ringers Solution) 1,000 ml in 1,000 mls @ 75 mls/ hr IV ASDIR [facility] Last Admin: 02/26/18 23:32 Dose: 75 mls/hr Levothyroxine Sodium (Synthroid -) 112 mcg PO DAILY@0700 [facility] Last Admin: 02/27/18 08:01 Dose: Not Given Morphine Sulfate (Msir -) 15 mg PO Q6HPO PRN PRN Reason: PAIN LEVEL 7 - 10 Ondansetron HCl (Zofran Injection) 8 mg IVPB Q8H PRN PRN Reason: NAUSEA Last Admin: 02/23/18 11:55 Dose: 8 mg Pantoprazole Sodium (Protonix -) 40 mg PO DAILY [facility] Last Admin: 02/26/18 10:22 Dose: 40 mg Promethazine HCl (Phenergan Injection -) 12.5 mg IVPB Q6H PRN PRN Reason: NAUSEA-FOR RESCUE AFTER 15 MIN Simethicone (Mylicon -) 80 mg PO Q4H PRN PRN Reason: GAS Last Admin: 02/24/18 15:03 Dose: 80 mg - Objective Vital Signs: Vital Signs Temperature 98.5 F 02/27/18 05:34 Pulse Rate 69 02/27/18 05:34 Respiratory Rate 20 02/27/18 05:34 Blood Pressure 118/64 02/27/18 05:34 O2 Sat by Pulse Oximetry (%) 95 02/26/18 21:00 Constitutional: Yes: No Distress, Calm Gastrointestinal: Yes: Normal Bowel Sounds, Hypoactive Bowel Sounds Musculoskeletal: Yes: WNL Extremities: Yes: WNL Neurological: Yes: Alert, Oriented Psychiatric: Yes: Alert, Oriented Labs: CBC, BMP 02/27/18 06:30 02/27/18 06:30 INR, PTT INR 1.33 (0.83-1.09) H 02/21/18 20:30 Assessment/Plan Problem List - Problems (1) Neoplasm of sigmoid colon Code(s): D49.0 - NEOPLASM OF UNSPECIFIED BEHAVIOR OF DIGESTIVE SYSTEM (2) Sigmoid thickening Code(s): K63.9 - DISEASE OF INTESTINE, UNSPECIFIED (3) Abdominal pain Code(s): R10.9 - UNSPECIFIED ABDOMINAL PAIN Qualifiers: Abdominal location: left lower quadrant Qualified Code(s): R10.32 - Left lower quadrant pain (4) Abnormal colonoscopy Code(s): R93.3 - ABNORMAL FINDINGS ON DX IMAGING OF PRT DIGESTIVE TRACT fever abd distension plan continue current mgmt abx monitor wbc rest as per the team
[2018-02-27 10:53] LABS: ANISOCYTOSIS 1+; MACROCYTOSIS 0; OVALOCYTE 1+; PLATELET ESTIMATE INCREASED; TEAR DROP CELLS 1+
[2018-02-27] MEDS: FLUCONAZOLE 200 MG/NS 100 ML IVPB SCH (12:35)
--- NOTE | 2018-02-27 14:38 | PN ---
Progress Note, Physician Chief Complaint: s/p left nephrosotomy tube placement full liquid diet restarted later today - Current Medication List Current Medications: Active Medications Acetaminophen (Tylenol -) 650 mg PO Q4H PRN PRN Reason: FEVER Last Admin: 02/24/18 22:37 Dose: 650 mg Amino Acids (Prosource No Carb Liquid Pkt) 30 ml PO BID@0800,1730 [facility] Last Admin: 02/27/18 08:00 Dose: Not Given Benzocaine/Menthol (Cepacol Lozenge -) 1 each MM PRN PRN PRN Reason: SORE THROAT Diphenhydramine HCl (Benadryl Injection -) 12.5 mg IVPUSH ONCE PRN PRN Reason: FOR ITCHING Heparin Sodium (Porcine) (Heparin -) 5,000 unit SQ BID [facility] Last Admin: 02/27/18 09:00 Dose: Not Given Fluconazole (Diflucan 200 Mg/Ns Premixed Ivpb -) 100 mls @ 100 mls/hr IVPB DAILY [facility] Last Admin: 02/27/18 12:35 Dose: 100 mls/hr Piperacillin Sod/Tazobactam (Sod 3.375 gm/ Dextrose) 50 mls @ 100 mls/hr IVPB Q8H-IV [facility]; Protocol Last Admin: 02/27/18 12:34 Dose: 100 mls/hr Lactated Ringer's (Lactated Ringers Solution) 1,000 ml in 1,000 mls @ 75 mls/ hr IV ASDIR [facility] Last Admin: 02/26/18 23:32 Dose: 75 mls/hr Levothyroxine Sodium (Synthroid -) 112 mcg PO DAILY@0700 [facility] Last Admin: 02/27/18 08:01 Dose: Not Given Morphine Sulfate (Msir -) 15 mg PO Q6HPO PRN PRN Reason: PAIN LEVEL 7 - 10 Ondansetron HCl (Zofran Injection) 8 mg IVPB Q8H PRN PRN Reason: NAUSEA Last Admin: 02/23/18 11:55 Dose: 8 mg Pantoprazole Sodium (Protonix -) 40 mg PO DAILY [facility] Last Admin: 02/27/18 09:00 Dose: Not Given Promethazine HCl (Phenergan Injection -) 12.5 mg IVPB Q6H PRN PRN Reason: NAUSEA-FOR RESCUE AFTER 15 MIN Simethicone (Mylicon -) 80 mg PO Q4H PRN PRN Reason: GAS Last Admin: 02/24/18 15:03 Dose: 80 mg - Objective Vital Signs: Vital Signs Temperature 98.5 F 02/27/18 05:34 Pulse Rate 82 02/27/18 11:52 Respiratory Rate 16 02/27/18 11:52 Blood Pressure 120/74 02/27/18 11:52 O2 Sat by Pulse Oximetry (%) 98 02/27/18 11:52 Constitutional: Yes: Calm Cardiovascular: Yes: Regular Rate and Rhythm, S1, S2 Respiratory: Yes: CTA Bilaterally Gastrointestinal: Yes: Normal Bowel Sounds, Soft, Other (colostomy) ...Rectal Exam: Yes: Other Genitourinary: Yes: Other (left sided nephrostomy tube placement) Labs: CBC, BMP 02/27/18 06:30 02/27/18 06:30 INR, PTT INR 1.33 (0.83-1.09) H 02/21/18 20:30 Problem List - Problems (1) Sigmoid thickening Assessment/Plan: will hold off on diet for now till seen by surgery Note: Operative Date: 02/21/18 Pre-Operative Diagnosis: Acute abdomen, feculent peritonitis Operation: exploratory lapartotomy, abdominal washout, completion left colectomy , end colostomy (transverse colon) Findings: feculent peritonitis limited to left abdominal contamination by omentum. stapled anastomosis was intact, there was a perforated diverticulum distal on the rectal stump. irrigated with 6 liters. end transverse colostomy created in LUQ. all counts correct. Post-Operative Diagnosis: Other (Perforated diverticulitis distal rectal stump) Surgeon: Horacio Ventura Health And Safety Inspector: Cheo Singh Anesthesiologist/FIELD GAUGER: Justine Agrawal Anesthesia: General Estimated Blood Loss (mls): 250 Drains & Tubes with Location: 350 feculent peritoneal ascites aspirated upon opening the abdomen Blood Volume Replaced (mls): 350 (PRBC) Fluid Volume Replaced (mls): 5,000 (crystalloid ) Operative Report Dictated: ct scan noted from free fluid in abdomen and pelvis and active urine leak form distal third of the left ureter s/p left nephrostomy tube placement today doe keep NPO till seen by surgery Code(s): K63.9 - DISEASE OF INTESTINE, UNSPECIFIED (2) Hypothyroid Assessment/Plan: iv synthroid change back to po po synthroid dose is 100mcg at home tsh noted 3.5 increase dose to 112mcg Code(s): E03.9 - HYPOTHYROIDISM, UNSPECIFIED (3) Left ureteral injury Assessment/Plan: s/p left nephrostomy tube placement Code(s): S37.10XA - UNSPECIFIED INJURY OF URETER, INITIAL ENCOUNTER
--- NOTE | 2018-02-27 14:56 | PN ---
Progress Note (short form) - Note Progress Note: PROGRESS NOTE FOR HEMATOLOGY/ONCOLOGY Patient seen and examined by me at bedside. Patient is s/p left nephrostomy tube placement today Offers no complaints. Denies any nausea, vomiting, shortness of breath, chest pain, palpitations, dizziness Vital Signs Temperature 98.5 F 02/27/18 05:34 Pulse Rate 82 02/27/18 11:52 Respiratory Rate 16 02/27/18 11:52 Blood Pressure 120/74 02/27/18 11:52 O2 Sat by Pulse Oximetry (%) 98 02/27/18 11:52 PHYSICAL EXAMINATION GENERAL: Awake, Alert, oriented x3. No cute distress EYES: PERRL. Sclera anicteric, conjunctiva clear MOUTH: Moist mucous membranes. No oral thrush HEART: RRR, Normal S1 an S2. No m/r/g LUNGS: CTA bilaterally ABDOMEN: Colostomy bag in place. Left nephrostomy tube placed. Nontender, nondistended EXTREMITIES: No peripheral edema Laboratory Tests 02/27/18 06:30 02/27/18 06:30 02/27/18 02/27/18 06:30 06:30 MCV 81.4 MCH 26.2 MCHC 32.2 RDW 20.0 H Absolute Neuts (auto) 10.3 H Calcium 6.9 L* Total Protein 4.9 L Albumin 1.4 L ASSESSMENT AND PLAN: Patient is a 57 year old make who presented with abdominal pain and colonoscopy revealed sigmoid mass and is now s/p sigmoidectomy (02/15/18). Problem List: Sigmoid Mass S/P sigmoidectomy/ Sue's procedure Post op Fecal Peritonitis/Perforated Diverticulum Atiral fibrillation Hypothyrodism Ureteral Extravasation s/p left nephrostomy tube placement PLAN: -Surgical pathology revealed Invasive adenocarcinoma, moderately differentiated , measuring 4.3cm in largest dimension. Tumor invades muscularis propria. No lymphovascular invasion identified. Negative margins and lymph nodes. Patient has stage I colon cancer, which does not need adjuvant treatment.
--- NOTE | 2018-02-27 15:01 | PATH ---
Surgical Pathology Report Patient Name: AGUSTO HUSSEIN [facility]. Rec. #: [id number] /Age/Gender: 1960 (Age: 57) / M Account: [id number] Location: [address] [place] [address]/[facility] Taken: 02/21/2018 Received: 02/22/2018 Reported: 02/27/2018 Physicians: Jahaira Goldman M.D. Specimen(s) Received A: OMENTUM B: LEFT COLON AND SPLENIC FLEXURE C: GREEN CATHETER TIP Clinical History Acute abdomen status post sigmoidectomy Final Diagnosis A. OMENTUM, OMENTECTOMY: BENIGN FIBROADIPOSE TISSUE WITH MARKED ACUTE INFLAMMATION AND SEROSITIS. B. COLON, LEFT AND SPLENIC FLEXURE, RESECTION: SEGMENT OF COLON WITH DIVERTICULOSIS, DIVERTICULITIS, AND ASSOCIATED DEFECT CONSISTENT WITH CLINICAL RUPTURE. PREVIOUS ANASTOMOSIS PRESENT. MARKED ACUTE SEROSITIS. SURGICAL MARGINS ARE VIABLE. C. CATHETER TIP, REMOVAL: CATHETER. MACROSCOPIC DIAGNOSIS. Electronically Signed Laquita Spaulding M.D. Gross Description A. Received in formalin labeled "omentum," is a 21.0 x 18.0 x 4.0 cm aggregate of yellow, lobulated adipose tissue, consistent with portions of omentum. The omentum is surfaced by daly-green exudate and sectioning reveals focal fat necrosis. Adoption Social Worker sections are submitted in one cassette. B. Received in formalin labeled "left colon and splenic flexure," is a 33 cm in length portion of colon with a stapled mucosal margin at the proximal end and an open mucosal margin at the distal end of the specimen. There is a stapled previous anastomosis at 7.5 cm from the distal mucosal margin. The serosa daly-morales with attached exudate. Sectioning reveals a focal defect, likely consistent with a rupture site, 1 cm distal to the anastomosis site. There are multiple additional uncomplicated diverticula present both proximal and distal to the anastomosis. No mucosal masses are identified. Adoption Social Worker sections are submitted in 11 cassettes as follows: 1-proximal stapled mucosal margin; 2-distal open mucosal margin; 3-5-otebdhhi from probable rupture site; 8-1-hbhpweubyzk distal to rupture site; 3-78-xyjdnjbuxpy proximal to rupture site; 11-uninvolved proximal mucosa. C. Received fresh labeled "catheter tip," is a 15 cm in length green, coiled portion of tubing, consistent with a catheter. No soft tissue is present. No sections are submitted, gross only. 02/22/2018 [facility]02/22/2018
[2018-02-27] MEDS: LACTATED RINGERS SOLUTION 1,000 ML/1,000 ML INFUS.BAG IV SCH (17:48)
--- NOTE | 2018-02-27 23:17 | PN ---
Teaching Attending Note Name of Resident: Alessia Wan ATTENDING PHYSICIAN STATEMENT I saw and evaluated the patient. I reviewed the resident's note and discussed the case with the resident. I agree with the resident's findings and plan as documented. SUBJECTIVE: OBJECTIVE: ASSESSMENT AND PLAN: 57 y/o patient with stage I-- T2, N0 colon cancer No metastases on imaging urinary leak post surgery with nephrostomy will follow
[2018-02-28] MEDS ORDERED: PIPERACILLIN/TAZOBACTAM 3.375 GM VIAL IVPB ONE ×3 (01:42→16:44)
[2018-02-28] MEDS ORDERED: DEXTROSE 5%-WATER - 50 ML IVPB ONE ×3 (01:42→16:44)
[2018-02-28] MEDS: PIPERACILLIN/TAZOB 3.375 GM 3.375 GM in DEXTROSE 5%-WATER - 50 ML IVPB SCH ×3 (01:56→17:09)
[2018-02-28] MEDS: LEVOTHYROXINE NA 112 MCG TABLET (FP) PO SCH (06:33)
[2018-02-28] MEDS: LACTATED RINGERS SOLUTION 1,000 ML/1,000 ML INFUS.BAG IV SCH ×4 (06:46→21:22)
[2018-02-28 06:59] LABS: BASO % 0.3 % (0-2.0); EOS % 0.4 % (0-4.5); HEMATOCRIT 27.9 % (35.4-49); HEMOGLOBIN 9.1 GM/dL (11.7-16.9); LYMPH % 7.5 % (8-40); MCH 26.6 pg (25.7-33.7); MCHC 32.7 g/dl (32.0-35.9); MEAN CELL VOLUME 81.3 fl (80-96); MEAN PLT VOLUME 6.8 fl (7.5-11.1); MONO % 4.1 % (3.8-10.2); NEUT % 87.7 % (42.8-82.8); PLATELET COUNT 590 K/MM3 (134-434); RBC 3.43 M/mm3 (4.00-5.60); RDW 19.5 % (11.9-15.9); WHITE BLOOD COUNT 13.2 K/mm3 (4.0-10.0)
[2018-02-28 07:34] LABS: ALBUMIN 1.5 g/dl (3.4-5.0); ALK PHOS 166 U/L (45-117); ANION GAP 10 MMOL/L (8-16); BILIRUBIN,TOTAL 0.8 mg/dL (0.2-1); BLOOD UREA NITROGEN 8 mg/dL (7-18); CHLORIDE 103 mmol/L (98-107); CO2 23 mmol/L (21-32); CREATININE 0.6 mg/dL (0.55-1.3); GLUCOSE,RANDOM 80 mg/dL (74-106); POTASSIUM 4.2 mmol/L (3.5-5.1); SGOT/AST 37 U/L (15-37); SGPT/ALT 42 U/L (13-61); SODIUM 136 mmol/L (136-145); TOT PROT 5.1 g/dl (6.4-8.2)
[2018-02-28 07:42] LABS: CALCIUM 6.9 mg/dL (8.5-10.1)
[2018-02-28] MEDS: AMINO ACIDS/PROTEIN HYDROLYS 30 ML LIQUID.PKT PO SCH ×2 (08:14→17:10)
--- NOTE | 2018-02-28 09:13 | PN ---
Progress Note, Physician - Current Medication List Current Medications: Active Medications Acetaminophen (Tylenol -) 650 mg PO Q4H PRN PRN Reason: FEVER Last Admin: 02/24/18 22:37 Dose: 650 mg Amino Acids (Prosource No Carb Liquid Pkt) 30 ml PO BID@0800,1730 [facility] Last Admin: 02/28/18 08:14 Dose: Not Given Benzocaine/Menthol (Cepacol Lozenge -) 1 each MM PRN PRN PRN Reason: SORE THROAT Diphenhydramine HCl (Benadryl Injection -) 12.5 mg IVPUSH ONCE PRN PRN Reason: FOR ITCHING Heparin Sodium (Porcine) (Heparin -) 5,000 unit SQ BID [facility] Last Admin: 02/27/18 21:54 Dose: 5,000 unit Fluconazole (Diflucan 200 Mg/Ns Premixed Ivpb -) 100 mls @ 100 mls/hr IVPB DAILY [facility] Last Admin: 02/27/18 12:35 Dose: 100 mls/hr Piperacillin Sod/Tazobactam (Sod 3.375 gm/ Dextrose) 50 mls @ 100 mls/hr IVPB Q8H-IV JERED; Protocol Last Admin: 02/28/18 01:56 Dose: 100 mls/hr Lactated Ringer's (Lactated Ringers Solution) 1,000 ml in 1,000 mls @ 75 mls/ hr IV ASDIR [facility] Last Admin: 02/28/18 06:46 Dose: 75 mls/hr Levothyroxine Sodium (Synthroid -) 112 mcg PO DAILY@0700 [facility] Last Admin: 02/28/18 06:33 Dose: Not Given Morphine Sulfate (Msir -) 15 mg PO Q6HPO PRN PRN Reason: PAIN LEVEL 7 - 10 Ondansetron HCl (Zofran Injection) 8 mg IVPB Q8H PRN PRN Reason: NAUSEA Last Admin: 02/23/18 11:55 Dose: 8 mg Pantoprazole Sodium (Protonix -) 40 mg PO DAILY [facility] Last Admin: 02/27/18 09:00 Dose: Not Given Promethazine HCl (Phenergan Injection -) 12.5 mg IVPB Q6H PRN PRN Reason: NAUSEA-FOR RESCUE AFTER 15 MIN Simethicone (Mylicon -) 80 mg PO Q4H PRN PRN Reason: GAS Last Admin: 02/24/18 15:03 Dose: 80 mg - Objective Vital Signs: Vital Signs Temperature 99.3 F 02/28/18 06:00 Pulse Rate 81 02/28/18 06:00 Respiratory Rate 18 02/28/18 06:00 Blood Pressure 125/71 02/28/18 06:00 O2 Sat by Pulse Oximetry (%) 96 02/27/18 21:00 Cardiovascular: Yes: S1, S2 Respiratory: Yes: Regular, CTA Bilaterally Gastrointestinal: Yes: Other (colostomy) Genitourinary: Yes: Lentz Present, Other (nephrostomy) Labs: CBC, BMP 02/28/18 06:30 02/28/18 06:30 INR, PTT INR 1.33 (0.83-1.09) H 02/21/18 20:30 Problem List - Problems (1) Abdominal pain Code(s): R10.9 - UNSPECIFIED ABDOMINAL PAIN Qualifiers: Abdominal location: left lower quadrant Qualified Code(s): R10.32 - Left lower quadrant pain (2) Neoplasm of sigmoid colon Code(s): D49.0 - NEOPLASM OF UNSPECIFIED BEHAVIOR OF DIGESTIVE SYSTEM (3) Hypothyroid Code(s): E03.9 - HYPOTHYROIDISM, UNSPECIFIED (4) Afib Code(s): I48.91 - UNSPECIFIED ATRIAL FIBRILLATION (5) Anemia Code(s): D64.9 - ANEMIA, UNSPECIFIED (6) Edema Code(s): R60.9 - EDEMA, UNSPECIFIED (7) Leukocytosis Code(s): D72.829 - ELEVATED WHITE BLOOD CELL COUNT, UNSPECIFIED Assessment/Plan - Problems (1) Sigmoid thickening Assessment/Plan: will hold off on diet for now till seen by surgery Note: Operative Date: 02/21/18 Pre-Operative Diagnosis: Acute abdomen, feculent peritonitis Operation: exploratory lapartotomy, abdominal washout, completion left colectomy , end colostomy (transverse colon) Findings: feculent peritonitis limited to left abdominal contamination by omentum. stapled anastomosis was intact, there was a perforated diverticulum distal on the rectal stump. irrigated with 6 liters. end transverse colostomy created in LUQ. all counts correct. Post-Operative Diagnosis: Other (Perforated diverticulitis distal rectal stump) Surgeon: Horacio Ventura Roofer Vinyl Coating: Cheo Singh Anesthesiologist/BRIQUETTE MACHINE OPERATOR: Justine Agrawal Anesthesia: General Estimated Blood Loss (mls): 250 Drains & Tubes with Location: 350 feculent peritoneal ascites aspirated upon opening the abdomen Blood Volume Replaced (mls): 350 (PRBC) Fluid Volume Replaced (mls): 5,000 (crystalloid ) Operative Report Dictated: ct scan noted from free fluid in abdomen and pelvis and active urine leak form distal third of the left ureter s/p left nephrostomy tube placement today doe keep NPO till seen by surgery Code(s): K63.9 - DISEASE OF INTESTINE, UNSPECIFIED (2) Hypothyroid Assessment/Plan: iv synthroid change back to po po synthroid dose is 100mcg at home tsh noted 3.5 increase dose to 112mcg Code(s): E03.9 - HYPOTHYROIDISM, UNSPECIFIED (3) Left ureteral injury Assessment/Plan: s/p left nephrostomy tube placement Code(s): S37.10XA - UNSPECIFIED INJURY OF URETER, INITIAL ENCOUNTER
[2018-02-28] MEDS: PANTOPRAZOLE 40 MG TABLET (FP) PO SCH (10:00)
[2018-02-28] MEDS: HEPARIN NA (PORCINE) 5,000 UNITS/ML 1ML VIAL SQ SCH ×2 (10:01→21:24)
[2018-02-28 10:42] LABS: ANISOCYTOSIS 1+; MACROCYTOSIS 1+; OVALOCYTE 1+; PLATELET ESTIMATE INCREASED
[2018-02-28] MEDS: FLUCONAZOLE 200 MG/NS 100 ML IVPB SCH (11:00)
--- NOTE | 2018-02-28 12:44 | PN ---
Progress Note, Physician History of Present Illness: patient stable doing well still liquids in colostomy nephrostomy ext in place - Current Medication List Current Medications: Active Medications Acetaminophen (Tylenol -) 650 mg PO Q4H PRN PRN Reason: FEVER Last Admin: 02/24/18 22:37 Dose: 650 mg Amino Acids (Prosource No Carb Liquid Pkt) 30 ml PO BID@0800,1730 [facility] Last Admin: 02/28/18 08:14 Dose: Not Given Benzocaine/Menthol (Cepacol Lozenge -) 1 each MM PRN PRN PRN Reason: SORE THROAT Diphenhydramine HCl (Benadryl Injection -) 12.5 mg IVPUSH ONCE PRN PRN Reason: FOR ITCHING Heparin Sodium (Porcine) (Heparin -) 5,000 unit SQ BID [facility] Last Admin: 02/28/18 10:01 Dose: 5,000 unit Fluconazole (Diflucan 200 Mg/Ns Premixed Ivpb -) 100 mls @ 100 mls/hr IVPB DAILY [facility] Last Admin: 02/28/18 11:00 Dose: 100 mls/hr Piperacillin Sod/Tazobactam (Sod 3.375 gm/ Dextrose) 50 mls @ 100 mls/hr IVPB Q8H-IV JERED; Protocol Last Admin: 02/28/18 09:59 Dose: 100 mls/hr Lactated Ringer's (Lactated Ringers Solution) 1,000 ml in 1,000 mls @ 75 mls/ hr IV ASDIR [facility] Last Admin: 02/28/18 06:46 Dose: 75 mls/hr Levothyroxine Sodium (Synthroid -) 112 mcg PO DAILY@0700 [facility] Last Admin: 02/28/18 06:33 Dose: Not Given Morphine Sulfate (Msir -) 15 mg PO Q6HPO PRN PRN Reason: PAIN LEVEL 7 - 10 Ondansetron HCl (Zofran Injection) 8 mg IVPB Q8H PRN PRN Reason: NAUSEA Last Admin: 02/23/18 11:55 Dose: 8 mg Pantoprazole Sodium (Protonix -) 40 mg PO DAILY [facility] Last Admin: 02/28/18 10:00 Dose: Not Given Promethazine HCl (Phenergan Injection -) 12.5 mg IVPB Q6H PRN PRN Reason: NAUSEA-FOR RESCUE AFTER 15 MIN Simethicone (Mylicon -) 80 mg PO Q4H PRN PRN Reason: GAS Last Admin: 02/24/18 15:03 Dose: 80 mg - Objective Vital Signs: Vital Signs Temperature 98.3 F 02/28/18 10:40 Pulse Rate 84 02/28/18 10:40 Respiratory Rate 18 02/28/18 10:40 Blood Pressure 139/76 02/28/18 10:40 O2 Sat by Pulse Oximetry (%) 94 L 02/28/18 09:00 Constitutional: Yes: No Distress, Calm Cardiovascular: Yes: Regular Rate and Rhythm Respiratory: Yes: Regular, CTA Bilaterally Gastrointestinal: Yes: Normal Bowel Sounds, Soft, Other (colostomy in place) Genitourinary: Yes: Other (ext nephrostomy in place) Musculoskeletal: Yes: WNL Extremities: Yes: WNL Neurological: Yes: Alert, Oriented Psychiatric: Yes: Alert, Oriented Labs: CBC, BMP 02/28/18 06:30 02/28/18 06:30 INR, PTT INR 1.33 (0.83-1.09) H 02/21/18 20:30 Assessment/Plan Problem List - Problems (1) Neoplasm of sigmoid colon Code(s): D49.0 - NEOPLASM OF UNSPECIFIED BEHAVIOR OF DIGESTIVE SYSTEM (2) Sigmoid thickening Code(s): K63.9 - DISEASE OF INTESTINE, UNSPECIFIED (3) Abdominal pain Code(s): R10.9 - UNSPECIFIED ABDOMINAL PAIN Qualifiers: Abdominal location: left lower quadrant Qualified Code(s): R10.32 - Left lower quadrant pain (4) Abnormal colonoscopy Code(s): R93.3 - ABNORMAL FINDINGS ON DX IMAGING OF PRT DIGESTIVE TRACT fever abd distension ext nephrostomy close watch on wbc wbc has slightly increased continue monitoring continue abx for now
--- NOTE | 2018-02-28 17:13 | PN ---
Progress Note, Physician Chief Complaint: abdominal pain and colon mass History of Present Illness: 57 yo male presenting to [facility] ER via private auto complaining of occasional lower left abdominal discomfort. stable post operatively after second laparotomy. Gas and air in the colostomy this morning, there was a gush of yellow effluent from the lower abdominal wound today, we were called to bedside by the nurse. - Current Medication List Current Medications: Active Medications Acetaminophen (Tylenol -) 650 mg PO Q4H PRN PRN Reason: FEVER Last Admin: 02/24/18 22:37 Dose: 650 mg Amino Acids (Prosource No Carb Liquid Pkt) 30 ml PO BID@0800,1730 [facility] Last Admin: 02/28/18 17:10 Dose: 30 ml Benzocaine/Menthol (Cepacol Lozenge -) 1 each MM PRN PRN PRN Reason: SORE THROAT Diphenhydramine HCl (Benadryl Injection -) 12.5 mg IVPUSH ONCE PRN PRN Reason: FOR ITCHING Heparin Sodium (Porcine) (Heparin -) 5,000 unit SQ BID [facility] Last Admin: 02/28/18 10:01 Dose: 5,000 unit Fluconazole (Diflucan 200 Mg/Ns Premixed Ivpb -) 100 mls @ 100 mls/hr IVPB DAILY [facility] Last Admin: 02/28/18 11:00 Dose: 100 mls/hr Piperacillin Sod/Tazobactam (Sod 3.375 gm/ Dextrose) 50 mls @ 100 mls/hr IVPB Q8H-IV JERED; Protocol Last Admin: 02/28/18 17:09 Dose: 100 mls/hr Lactated Ringer's (Lactated Ringers Solution) 1,000 ml in 1,000 mls @ 75 mls/ hr IV ASDIR [facility] Last Admin: 02/28/18 06:46 Dose: 75 mls/hr Levothyroxine Sodium (Synthroid -) 112 mcg PO DAILY@0700 [facility] Last Admin: 02/28/18 06:33 Dose: Not Given Morphine Sulfate (Msir -) 15 mg PO Q6HPO PRN PRN Reason: PAIN LEVEL 7 - 10 Ondansetron HCl (Zofran Injection) 8 mg IVPB Q8H PRN PRN Reason: NAUSEA Last Admin: 02/23/18 11:55 Dose: 8 mg Pantoprazole Sodium (Protonix -) 40 mg PO DAILY [facility] Last Admin: 02/28/18 10:00 Dose: Not Given Promethazine HCl (Phenergan Injection -) 12.5 mg IVPB Q6H PRN PRN Reason: NAUSEA-FOR RESCUE AFTER 15 MIN Simethicone (Mylicon -) 80 mg PO Q4H PRN PRN Reason: GAS Last Admin: 02/24/18 15:03 Dose: 80 mg - Objective Vital Signs: Vital Signs Temperature 99.2 F 02/28/18 13:40 Pulse Rate 82 02/28/18 13:40 Respiratory Rate 16 02/28/18 13:40 Blood Pressure 133/75 02/28/18 13:40 O2 Sat by Pulse Oximetry (%) 94 L 02/28/18 09:00 Vital Signs Period Temp Pulse Resp BP Sys/Cavanaugh Pulse Ox Last 24 Hr 97.5 F-98.6 F 76-114 16-20 96-125/54-73 96 Intake & Output 03/01/18 03/01/18 03/01/18 07:59 15:59 23:59 Intake Total 1300 Output Total 700 200 Balance 600 -200 Intake: IV 900 LACTATED RINGERS SOLUTION 900 1,000 ml In 1,000 ml @ 75 mls/hr IV ASDIR [facility] Rx #:[id number] IVPB 100 Oral 300 Output: Urine 700 200 Mazariegos 400 Left Nephrostomy 300 200 Other: Voiding Method Indwelling Catheter Constitutional: Yes: Well Nourished, No Distress, Calm Eyes: Yes: Conjunctiva Clear, EOM Intact HENT: Yes: Atraumatic, Normocephalic Neck: Yes: Supple, Trachea Midline Cardiovascular: Yes: Regular Rate and Rhythm, S1, S2 Respiratory: Yes: Regular, CTA Bilaterally Gastrointestinal: Yes: Normal Bowel Sounds, Soft, Abdomen, Obese. No: Distention ...Rectal Exam: Yes: Deferred Genitourinary: No: CVA Tenderness - Left, CVA Tenderness - Right Musculoskeletal: No: Muscle Pain, Muscle Weakness Extremities: No: Calf Tenderness, Cool, Cyanosis Edema: Yes Edema: LUE: Trace, RUE: Trace, LLE: Trace, RLE: Trace Peripheral Pulses WNL: Yes Peripheral Pulses: Left Radial: 2+, Right Radial: 2+, Left Doralis Pedis: 2+, Right Dorsalis Pedis: 2+ Integumentary: No: Jaundice, Rash, Tenting Wound/Incision: Yes: Dressing Dry and Intact, Unapproximated. No: Clean/Dry Neurological: Yes: Alert, Oriented Psychiatric: Yes: Alert, Oriented Labs: CBC, BMP 02/28/18 06:30 02/28/18 06:30 INR, PTT INR 1.33 (0.83-1.09) H 02/21/18 20:30 Problem List - Problems (1) Neoplasm of sigmoid colon Assessment/Plan: POD#13 s/p sigmoid colectomy and primary anastomosis (due to sigmoid colon mass ) POD#6 s/p completion left colectomy and amado's (due to perforated diverticulum distal to anatomosis), gas and liquid stool now in the colostomy, Leukocystosis >15 (>85%N). Large gush of urine from the abdomen is suspicious for a bladder or ureteral injury. CT Urogram shows left sided distal ureteral blush of contrast. He will be assessed by Dr. Kwok monitored setting Make NPO and mazariegos placement urgent urology evaluation IVF hydration replete electrolytes - calcium antiemetic Medical oncology workup OOB and ambulate encourage IS physical therapy evaluation will follow Code(s): D49.0 - NEOPLASM OF UNSPECIFIED BEHAVIOR OF DIGESTIVE SYSTEM (2) Sigmoid thickening Code(s): K63.9 - DISEASE OF INTESTINE, UNSPECIFIED (3) Abdominal pain Code(s): R10.9 - UNSPECIFIED ABDOMINAL PAIN Qualifiers: Abdominal location: left lower quadrant Qualified Code(s): R10.32 - Left lower quadrant pain (4) Abnormal colonoscopy Code(s): R93.3 - ABNORMAL FINDINGS ON DX IMAGING OF PRT DIGESTIVE TRACT
[2018-03-01] MEDS ORDERED: DEXTROSE 5%-WATER - 50 ML IVPB ONE ×3 (02:36→19:04)
[2018-03-01] MEDS ORDERED: PIPERACILLIN/TAZOBACTAM 3.375 GM VIAL IVPB ONE ×3 (02:36→19:03)
[2018-03-01] MEDS: PIPERACILLIN/TAZOB 3.375 GM 3.375 GM in DEXTROSE 5%-WATER - 50 ML IVPB SCH ×3 (02:38→19:05)
[2018-03-01] MEDS: LEVOTHYROXINE NA 112 MCG TABLET (FP) PO SCH (06:14)
[2018-03-01 08:13] LABS: BASO % 0.2 % (0-2.0); EOS % 1.5 % (0-4.5); HEMATOCRIT 26.8 % (35.4-49); HEMOGLOBIN 8.6 GM/dL (11.7-16.9); LYMPH % 9.4 % (8-40); MCH 26.5 pg (25.7-33.7); MCHC 32.3 g/dl (32.0-35.9); MEAN CELL VOLUME 81.9 fl (80-96); MEAN PLT VOLUME 6.8 fl (7.5-11.1); MONO % 4.3 % (3.8-10.2); NEUT % 84.6 % (42.8-82.8); PLATELET COUNT 533 K/MM3 (134-434); RBC 3.27 M/mm3 (4.00-5.60); RDW 20.4 % (11.9-15.9); WHITE BLOOD COUNT 13.9 K/mm3 (4.0-10.0)
[2018-03-01 08:55] LABS: ALBUMIN 1.5 g/dl (3.4-5.0); ALK PHOS 178 U/L (45-117); ANION GAP 8 MMOL/L (8-16); BILIRUBIN,TOTAL 0.7 mg/dL (0.2-1); BLOOD UREA NITROGEN 7 mg/dL (7-18); CHLORIDE 103 mmol/L (98-107); CO2 25 mmol/L (21-32); CREATININE 0.6 mg/dL (0.55-1.3); GLUCOSE,RANDOM 93 mg/dL (74-106); POTASSIUM 4.2 mmol/L (3.5-5.1); SGOT/AST 35 U/L (15-37); SGPT/ALT 44 U/L (13-61); SODIUM 136 mmol/L (136-145); TOT PROT 5.3 g/dl (6.4-8.2)
[2018-03-01] MEDS: AMINO ACIDS/PROTEIN HYDROLYS 30 ML LIQUID.PKT PO SCH ×2 (08:59→17:43)
--- NOTE | 2018-03-01 09:12 | PN ---
Progress Note, Physician History of Present Illness: feels a little better eating breakfast - Current Medication List Current Medications: Active Medications Acetaminophen (Tylenol -) 650 mg PO Q4H PRN PRN Reason: FEVER Last Admin: 02/24/18 22:37 Dose: 650 mg Amino Acids (Prosource No Carb Liquid Pkt) 30 ml PO BID@0800,1730 [facility] Last Admin: 02/28/18 17:10 Dose: 30 ml Benzocaine/Menthol (Cepacol Lozenge -) 1 each MM PRN PRN PRN Reason: SORE THROAT Diphenhydramine HCl (Benadryl Injection -) 12.5 mg IVPUSH ONCE PRN PRN Reason: FOR ITCHING Heparin Sodium (Porcine) (Heparin -) 5,000 unit SQ BID [facility] Last Admin: 02/28/18 21:24 Dose: 5,000 unit Fluconazole (Diflucan 200 Mg/Ns Premixed Ivpb -) 100 mls @ 100 mls/hr IVPB DAILY [facility] Last Admin: 02/28/18 11:00 Dose: 100 mls/hr Piperacillin Sod/Tazobactam (Sod 3.375 gm/ Dextrose) 50 mls @ 100 mls/hr IVPB Q8H-IV JERED; Protocol Last Admin: 03/01/18 02:38 Dose: 100 mls/hr Lactated Ringer's (Lactated Ringers Solution) 1,000 ml in 1,000 mls @ 75 mls/ hr IV ASDIR [facility] Last Admin: 02/28/18 21:22 Dose: 75 mls/hr Levothyroxine Sodium (Synthroid -) 112 mcg PO DAILY@0700 [facility] Last Admin: 03/01/18 06:14 Dose: 112 mcg Morphine Sulfate (Msir -) 15 mg PO Q6HPO PRN PRN Reason: PAIN LEVEL 7 - 10 Ondansetron HCl (Zofran Injection) 8 mg IVPB Q8H PRN PRN Reason: NAUSEA Last Admin: 02/23/18 11:55 Dose: 8 mg Pantoprazole Sodium (Protonix -) 40 mg PO DAILY [facility] Last Admin: 02/28/18 10:00 Dose: Not Given Promethazine HCl (Phenergan Injection -) 12.5 mg IVPB Q6H PRN PRN Reason: NAUSEA-FOR RESCUE AFTER 15 MIN Simethicone (Mylicon -) 80 mg PO Q4H PRN PRN Reason: GAS Last Admin: 02/24/18 15:03 Dose: 80 mg - Objective Vital Signs: Vital Signs Temperature 98.6 F 03/01/18 06:00 Pulse Rate 76 03/01/18 06:00 Respiratory Rate 20 03/01/18 06:00 Blood Pressure 125/73 03/01/18 06:00 O2 Sat by Pulse Oximetry (%) 96 02/28/18 21:00 Cardiovascular: Yes: S1, S2 Respiratory: Yes: Regular, CTA Bilaterally Gastrointestinal: Yes: Normal Bowel Sounds, Soft ...Rectal Exam: Yes: Other (colostomy) Genitourinary: Yes: Lentz Present, Other (nephrostomy) Labs: CBC, BMP 03/01/18 06:15 03/01/18 06:15 INR, PTT INR 1.33 (0.83-1.09) H 02/21/18 20:30 Problem List - Problems (1) Abdominal pain Code(s): R10.9 - UNSPECIFIED ABDOMINAL PAIN Qualifiers: Abdominal location: left lower quadrant Qualified Code(s): R10.32 - Left lower quadrant pain (2) Neoplasm of sigmoid colon Code(s): D49.0 - NEOPLASM OF UNSPECIFIED BEHAVIOR OF DIGESTIVE SYSTEM (3) Hypothyroid Code(s): E03.9 - HYPOTHYROIDISM, UNSPECIFIED (4) Afib Code(s): I48.91 - UNSPECIFIED ATRIAL FIBRILLATION (5) Anemia Code(s): D64.9 - ANEMIA, UNSPECIFIED (6) Edema Code(s): R60.9 - EDEMA, UNSPECIFIED (7) Leukocytosis Code(s): D72.829 - ELEVATED WHITE BLOOD CELL COUNT, UNSPECIFIED Assessment/Plan - Problems (1) Sigmoid thickening Assessment/Plan: will hold off on diet for now till seen by surgery Note: Operative Date: 02/21/18 Pre-Operative Diagnosis: Acute abdomen, feculent peritonitis Operation: exploratory lapartotomy, abdominal washout, completion left colectomy , end colostomy (transverse colon) Findings: feculent peritonitis limited to left abdominal contamination by omentum. stapled anastomosis was intact, there was a perforated diverticulum distal on the rectal stump. irrigated with 6 liters. end transverse colostomy created in LUQ. all counts correct. Post-Operative Diagnosis: Other (Perforated diverticulitis distal rectal stump) Surgeon: Horacio Ventura Fish Egg Packer: Cheo Singh Anesthesiologist/SCHOOL EXAMINER: Justine Agrawal Anesthesia: General Estimated Blood Loss (mls): 250 Drains & Tubes with Location: 350 feculent peritoneal ascites aspirated upon opening the abdomen Blood Volume Replaced (mls): 350 (PRBC) Fluid Volume Replaced (mls): 5,000 (crystalloid ) Operative Report Dictated: ct scan noted from free fluid in abdomen and pelvis and active urine leak form distal third of the left ureter s/p left nephrostomy tube placement today Diet per surgery Code(s): K63.9 - DISEASE OF INTESTINE, UNSPECIFIED (2) Hypothyroid Assessment/Plan: iv synthroid change back to po po synthroid dose is 100mcg at home tsh noted 3.5 increase dose to 112mcg Code(s): E03.9 - HYPOTHYROIDISM, UNSPECIFIED (3) Left ureteral injury Assessment/Plan: s/p left nephrostomy tube placement Code(s): S37.10XA - UNSPECIFIED INJURY OF URETER, INITIAL ENCOUNTER (4) Leukocytosis Assessment/Plan: Abx per id Monitor bc id following patient
[2018-03-01] MEDS: PANTOPRAZOLE 40 MG TABLET (FP) PO SCH (11:00)
[2018-03-01] MEDS: HEPARIN NA (PORCINE) 5,000 UNITS/ML 1ML VIAL SQ SCH ×2 (11:00→22:15)
--- NOTE | 2018-03-01 12:47 | PN ---
Progress Note, Physician History of Present Illness: patient doing well no complaints - Current Medication List Current Medications: Active Medications Acetaminophen (Tylenol -) 650 mg PO Q4H PRN PRN Reason: FEVER Last Admin: 02/24/18 22:37 Dose: 650 mg Amino Acids (Prosource No Carb Liquid Pkt) 30 ml PO BID@0800,1730 [facility] Last Admin: 03/01/18 08:59 Dose: 30 ml Benzocaine/Menthol (Cepacol Lozenge -) 1 each MM PRN PRN PRN Reason: SORE THROAT Diphenhydramine HCl (Benadryl Injection -) 12.5 mg IVPUSH ONCE PRN PRN Reason: FOR ITCHING Heparin Sodium (Porcine) (Heparin -) 5,000 unit SQ BID [facility] Last Admin: 03/01/18 11:00 Dose: 5,000 unit Fluconazole (Diflucan 200 Mg/Ns Premixed Ivpb -) 100 mls @ 100 mls/hr IVPB DAILY [facility] Last Admin: 02/28/18 11:00 Dose: 100 mls/hr Piperacillin Sod/Tazobactam (Sod 3.375 gm/ Dextrose) 50 mls @ 100 mls/hr IVPB Q8H-IV JERED; Protocol Last Admin: 03/01/18 10:59 Dose: 100 mls/hr Lactated Ringer's (Lactated Ringers Solution) 1,000 ml in 1,000 mls @ 75 mls/ hr IV ASDIR [facility] Last Admin: 02/28/18 21:22 Dose: 75 mls/hr Levothyroxine Sodium (Synthroid -) 112 mcg PO DAILY@0700 [facility] Last Admin: 03/01/18 06:14 Dose: 112 mcg Ondansetron HCl (Zofran Injection) 8 mg IVPB Q8H PRN PRN Reason: NAUSEA Last Admin: 02/23/18 11:55 Dose: 8 mg Pantoprazole Sodium (Protonix -) 40 mg PO DAILY [facility] Last Admin: 03/01/18 11:00 Dose: 40 mg Promethazine HCl (Phenergan Injection -) 12.5 mg IVPB Q6H PRN PRN Reason: NAUSEA-FOR RESCUE AFTER 15 MIN Simethicone (Mylicon -) 80 mg PO Q4H PRN PRN Reason: GAS Last Admin: 02/24/18 15:03 Dose: 80 mg - Objective Vital Signs: Vital Signs Temperature 98.6 F 03/01/18 06:00 Pulse Rate 76 03/01/18 06:00 Respiratory Rate 20 03/01/18 06:00 Blood Pressure 125/73 03/01/18 06:00 O2 Sat by Pulse Oximetry (%) 96 02/28/18 21:00 Constitutional: Yes: No Distress, Calm Cardiovascular: Yes: Regular Rate and Rhythm Respiratory: Yes: Regular, CTA Bilaterally Gastrointestinal: Yes: Normal Bowel Sounds, Soft, Other (colostomy in place) Genitourinary: Yes: Other (ext nephrostomy in place) Musculoskeletal: Yes: WNL Extremities: Yes: WNL Neurological: Yes: Alert, Oriented Psychiatric: Yes: Alert, Oriented Labs: CBC, BMP 03/01/18 06:15 03/01/18 06:15 INR, PTT INR 1.33 (0.83-1.09) H 02/21/18 20:30 Assessment/Plan Problem List - Problems (1) Neoplasm of sigmoid colon Code(s): D49.0 - NEOPLASM OF UNSPECIFIED BEHAVIOR OF DIGESTIVE SYSTEM (2) Sigmoid thickening Code(s): K63.9 - DISEASE OF INTESTINE, UNSPECIFIED (3) Abdominal pain Code(s): R10.9 - UNSPECIFIED ABDOMINAL PAIN Qualifiers: Abdominal location: left lower quadrant Qualified Code(s): R10.32 - Left lower quadrant pain (4) Abnormal colonoscopy Code(s): R93.3 - ABNORMAL FINDINGS ON DX IMAGING OF PRT DIGESTIVE TRACT fever abd distension ext nephrostomy close watch on wbc wbc has slightly increased continue monitoring continue abx
[2018-03-01 13:31] LABS: CALCIUM 6.9 mg/dL (8.5-10.1)
--- NOTE | 2018-03-01 13:54 | PATH ---
Cytology Non-Gynecological Report Patient Name: AGUSTO HUSSEIN [facility]. Rec. #: [id number] /Age/Gender: 1960 (Age: 57) / M Account: [id number] Location: [address] [place] [address]/[facility] Taken: 02/27/2018 Received: 02/27/2018 Reported: 03/01/2018 Physicians: Haim Hussein M.D. Specimen(s) Received URINE Clinical History Nephrostomy placement Final Diagnosis URINE FROM NEPHROSTOMY TUBE FOR CYTOLOGY: SATISFACTORY FOR EVALUATION. NEGATIVE FOR HIGH GRADE UROTHELIAL CARCINOMA. BENIGN UROTHELIAL FRAGMENTS, ACUTE INFLAMMATORY CELLS, AND RED BLOOD CELLS PRESENT. Comment: The presence of urothelial fragments may due to the instrumentation (nephrostomy placement). Electronically Signed Theo Arias M.D. Gross Description 4mL red fluid received fresh. 1 cytospin prepared for PAP stain.
[2018-03-01] MEDS ORDERED: PT OWN MED DRAWER 7, Y5N ONE (13:59)
[2018-03-01] MEDS: LACTATED RINGERS SOLUTION 1,000 ML/1,000 ML INFUS.BAG IV SCH (14:11)
[2018-03-01] MEDS: ACETAMINOPHEN 325 MG TABLET (FP) PO PRN (14:11)
[2018-03-01] MEDS: FLUCONAZOLE 200 MG/NS 100 ML IVPB SCH (14:12)
--- NOTE | 2018-03-01 14:33 | PN ---
Progress Note, Physician Chief Complaint: abdominal pain and colon mass History of Present Illness: 57 yo male presenting to [facility] ER via private auto complaining of occasional lower left abdominal discomfort. stable post operatively after second laparotomy. Gas and air in the colostomy this morning, We were called to the bedside when the patinet was reporting more abdominal pain. He is noted to worseing distension despite left nephrostomy and mazariegos placement. - Current Medication List Current Medications: Active Medications Acetaminophen (Tylenol -) 650 mg PO Q4H PRN PRN Reason: FEVER Last Admin: 03/01/18 14:11 Dose: 650 mg Amino Acids (Prosource No Carb Liquid Pkt) 30 ml PO BID@0800,1730 [facility] Last Admin: 03/01/18 08:59 Dose: 30 ml Benzocaine/Menthol (Cepacol Lozenge -) 1 each MM PRN PRN PRN Reason: SORE THROAT Diphenhydramine HCl (Benadryl Injection -) 12.5 mg IVPUSH ONCE PRN PRN Reason: FOR ITCHING Heparin Sodium (Porcine) (Heparin -) 5,000 unit SQ BID [facility] Last Admin: 03/01/18 11:00 Dose: 5,000 unit Fluconazole (Diflucan 200 Mg/Ns Premixed Ivpb -) 100 mls @ 100 mls/hr IVPB DAILY [facility] Last Admin: 03/01/18 14:12 Dose: 100 mls/hr Piperacillin Sod/Tazobactam (Sod 3.375 gm/ Dextrose) 50 mls @ 100 mls/hr IVPB Q8H-IV JERED; Protocol Last Admin: 03/01/18 10:59 Dose: 100 mls/hr Lactated Ringer's (Lactated Ringers Solution) 1,000 ml in 1,000 mls @ 75 mls/ hr IV ASDIR [facility] Last Admin: 03/01/18 14:11 Dose: 75 mls/hr Levothyroxine Sodium (Synthroid -) 112 mcg PO DAILY@0700 [facility] Last Admin: 03/01/18 06:14 Dose: 112 mcg Ondansetron HCl (Zofran Injection) 8 mg IVPB Q8H PRN PRN Reason: NAUSEA Last Admin: 02/23/18 11:55 Dose: 8 mg Pantoprazole Sodium (Protonix -) 40 mg PO DAILY [facility] Last Admin: 03/01/18 11:00 Dose: 40 mg Promethazine HCl (Phenergan Injection -) 12.5 mg IVPB Q6H PRN PRN Reason: NAUSEA-FOR RESCUE AFTER 15 MIN Simethicone (Mylicon -) 80 mg PO Q4H PRN PRN Reason: GAS Last Admin: 02/24/18 15:03 Dose: 80 mg - Objective Vital Signs: Vital Signs Temperature 98.6 F 03/01/18 06:00 Pulse Rate 76 03/01/18 06:00 Respiratory Rate 20 03/01/18 06:00 Blood Pressure 125/73 03/01/18 06:00 O2 Sat by Pulse Oximetry (%) 96 02/28/18 21:00 Vital Signs Period Temp Pulse Resp BP Sys/Cavanaugh Pulse Ox Last 24 Hr 97.6 F-98.9 F 85-104 18-38 92-99/58-78 97-98 Intake & Output 03/02/18 03/02/18 03/02/18 07:59 15:59 23:59 Intake Total 925 1475 200 Output Total 650 1090 650 Balance 275 385 -450 Intake: IV 875 375 LACTATED RINGERS SOLUTION 875 375 1,000 ml In 1,000 ml @ 125 mls/hr IV ASDIR [facility] Rx#:[id number] IVPB 50 100 50 Oral 1000 150 Output: Drainage 100 400 300 Left Lateral Abdomen 100 400 300 Urine 550 690 350 Mazariegos 400 400 Left Nephrostomy 150 290 350 Other: Voiding Method Indwelling Catheter Constitutional: Yes: Well Nourished, Calm, Anxious, Ashen, Diaphoresis Eyes: Yes: Conjunctiva Clear, EOM Intact HENT: Yes: Atraumatic, Normocephalic Neck: Yes: Supple, Trachea Midline Cardiovascular: Yes: Regular Rate and Rhythm, S1, S2 Respiratory: Yes: CTA Bilaterally, Tachypnea Gastrointestinal: Yes: Normal Bowel Sounds, Soft, Abdomen, Obese, Distention, Other (LUQ colostomy functional). No: Tenderness, Tenderness, Epigastrium, Tenderness, Rebound, Vomiting ...Rectal Exam: Yes: Deferred Genitourinary: Yes: Mazariegos Present, Other (left nephrostomy). No: CVA Tenderness - Left, CVA Tenderness - Right Musculoskeletal: No: Muscle Pain, Muscle Weakness Extremities: Yes: Calf Tenderness. No: Cool, Cyanosis Edema: Yes Edema: LUE: Trace, RUE: Trace, LLE: Trace, RLE: Trace Peripheral Pulses WNL: Yes Peripheral Pulses: Left Radial: 2+, Right Radial: 2+, Left Doralis Pedis: 2+, Right Dorsalis Pedis: 2+ Integumentary: No: Rash, Tenting, Venous Stasis Changes Neurological: Yes: Alert, Oriented Psychiatric: Yes: Alert, Oriented Labs: CBC, BMP 03/01/18 06:15 03/01/18 06:15 INR, PTT INR 1.33 (0.83-1.09) H 02/21/18 20:30 Problem List - Problems (1) Neoplasm of sigmoid colon Assessment/Plan: POD#14 s/p sigmoid colectomy and primary anastomosis (due to sigmoid colon mass ) POD#7 s/p completion left colectomy and amado's (due to perforated diverticulum distal to anatomosis), gas and liquid stool now in the colostomy, Leukocystosis >15 (>85%N). Noted on imaging to have left distal 1/3rd ureteral injury likely attributable to reoperation for a perforated diverticulum. Now temporized with a left nephrostomy and mazariegos. Due to be assessed by urology for management. monitored setting Make NPO IR for drainage of uroma IVF hydration replete electrolytes - calcium antiemetic hypoxia workup OOB and ambulate encourage IS will follow Code(s): D49.0 - NEOPLASM OF UNSPECIFIED BEHAVIOR OF DIGESTIVE SYSTEM (2) Sigmoid thickening Code(s): K63.9 - DISEASE OF INTESTINE, UNSPECIFIED (3) Abdominal pain Code(s): R10.9 - UNSPECIFIED ABDOMINAL PAIN Qualifiers: Abdominal location: left lower quadrant Qualified Code(s): R10.32 - Left lower quadrant pain (4) Abnormal colonoscopy Code(s): R93.3 - ABNORMAL FINDINGS ON DX IMAGING OF PRT DIGESTIVE TRACT
[2018-03-01] MEDS ORDERED: oxyCODONE HCL 5 MG TABLET PO PRN ×2 (15:03→20:35)
--- NOTE | 2018-03-01 15:38 | RAPID ---
Physical Examination Vital Signs: Vital Signs Temperature 97.5 F L 03/01/18 14:59 Pulse Rate 114 H 03/01/18 14:59 Respiratory Rate 16 03/01/18 14:59 Blood Pressure 96/54 L 03/01/18 14:59 O2 Sat by Pulse Oximetry (%) 96 02/28/18 21:00 Labs: CBC, BMP 03/01/18 06:15 03/01/18 06:15 Rapid Response - Rapid Response Assessment: Rapid response was called at 3:13 patient had just come back from walking with physical therapy when the nurse noticed that patient became very clamy and dyspneic and a rapid response was called patient is post-op after a sigmoid resection and has an adenocarcinoma. spoke with dr wallace and adrian, patient most likely has a urine leak- getting besides IR drainage and then central line to be placed with transfer to ICU. Dr. Hinkle spoke with Dr Balderas and he is aware initial vitals : BP: 89/55 HR 117 SPO2 91-92 on non-rebreather patient was given a blous and repeat vitals: repeta BP 107/77, HR 101 EXAM: GEN; acute distress on rebreather lungs CTA B/L cardio: tachycardic, s1 s2 abdomen: tender upon palpation EKG, CMP trops, lactic acid, CTA (after patient is stable)
--- NOTE | 2018-03-01 15:52 | EKG ---
Test Reason : Blood Pressure : / mmHG Vent. Rate : 108 BPM Atrial Rate : 108 BPM P-R Int : 126 ms QRS Dur : 104 ms QT Int : 346 ms P-R-T Axes : 039 052 022 degrees QTc Int : 463 ms SINUS TACHYCARDIA OTHERWISE NORMAL ECG WHEN COMPARED WITH ECG OF 20-FEB-2018 14:41, SINUS RHYTHM HAS REPLACED ATRIAL FIBRILLATION VENT. RATE HAS DECREASED BY 53 BPM BORDERLINE CRITERIA FOR INFERIOR INFARCT ARE NO LONGER PRESENT NON-SPECIFIC CHANGE IN ST SEGMENT IN INFERIOR LEADS Confirmed by CHARLIE ZARATE, RYANN ([id number]) on 03/01/2018 3:52:16 PM Referred By: STEFAN AG DR Confirmed By:RYANN GUERRA MD
--- NOTE | 2018-03-01 16:27 | CONSULT ---
Consultation: REQUESTING PROVIDER: CONSULT REQUEST: We have been asked to medically evaluate this patient for ( specify). HISTORY OF PRESENT ILLNESS: 57 year old man with history of hypothyroidism, stage 1 colon cancer, Afib w/ RVR with Sue procedure performed 02/22 (Dr. Ventura), urine leak from abdominal site (02/26) found to have L sided ureteral extravasation with L nephrostomy tube placement (02/28). Now presented s/p rapid response, becoming hypotensive, tachycardic, in respiratory distress, satting in the 70s and requiring NRB. Patient's rhythm did not go into Afib with RVR during the rapid response. Alert and reports feeling "ok" at bedside. REVIEW OF SYSTEMS: CONSTITUTIONAL: Absent: fever, chills, diaphoresis, generalized weakness, malaise, loss of appetite, weight change HEENT: Absent: rhinorrhea, nasal congestion, throat pain, throat swelling, difficulty swallowing, mouth swelling, ear pain, eye pain, visual changes CARDIOVASCULAR: Absent: chest pain, syncope, palpitations, irregular heart rate, lightheadedness , peripheral edema RESPIRATORY: Absent: cough, shortness of breath, dyspnea with exertion, orthopnea, wheezing, stridor, hemoptysis GASTROINTESTINAL: Absent: abdominal pain, abdominal distension, nausea, vomiting, diarrhea, constipation, melena, hematochezia GENITOURINARY: Absent: dysuria, frequency, urgency, hesitancy, hematuria, flank pain, genital pain MUSCULOSKELETAL: Absent: myalgia, arthralgia, joint swelling, back pain, neck pain SKIN: Absent: rash, itching, pallor HEMATOLOGIC/IMMUNOLOGIC: Absent: easy bleeding, easy bruising, lymphadenopathy, frequent infections ENDOCRINE: Absent: unexplained weight gain, unexplained weight loss, heat intolerance, cold intolerance NEUROLOGIC: Absent: headache, focal weakness or paresthesias, dizziness, unsteady gait, seizure, mental status changes, bladder or bowel incontinence PSYCHIATRIC: Absent: anxiety, depression, suicidal or homicidal ideation, hallucinations. PHYSICAL EXAMINATION Vital Signs - 24 hr 02/28/18 02/28/18 02/28/18 18:00 21:00 22:29 Temperature 97.8 F Pulse Rate 96 H 94 H Respiratory 20 20 20 Rate Blood Pressure 107/57 L 110/67 O2 Sat by Pulse 96 Oximetry (%) 03/01/18 03/01/18 06:00 14:59 Temperature 98.6 F 97.5 F L Pulse Rate 76 114 H Respiratory 20 16 Rate Blood Pressure 125/73 96/54 L O2 Sat by Pulse Oximetry (%) GENERAL: Awake, alert, and fully oriented on NRB, lying on bed prior to central line placement HEAD: Normal with no signs of trauma. EARS, NOSE, THROAT: Moist mucous membranes. NECK: Normal range of motion MUSCULOSKELETAL: Normal range of motion at all joints. No bony deformities or tenderness. PSYCHIATRIC: Cooperative. Good eye contact. Appropriate mood and affect. SKIN: Warm, dry, normal turgor, no rashes or lesions noted. Laboratory Results - last 24 hr 03/01/18 03/01/18 06:15 06:15 WBC 13.9 H RBC 3.27 L Hgb 8.6 L Hct 26.8 L MCV 81.9 MCH 26.5 MCHC 32.3 RDW 20.4 H Plt Count 533 H MPV 6.8 L Absolute Neuts (auto) 11.8 H Neutrophils % 84.6 H Lymphocytes % 9.4 D Monocytes % 4.3 Eosinophils % 1.5 D Basophils % 0.2 Nucleated RBC % 0 Sodium 136 Potassium 4.2 Chloride 103 Carbon Dioxide 25 Anion Gap 8 BUN 7 Creatinine 0.6 Creat Clearance w eGFR > 60 Random Glucose 93 Calcium 6.9 L* Total Bilirubin 0.7 AST 35 ALT 44 Alkaline Phosphatase 178 H Total Protein 5.3 L Albumin 1.5 L Active Medications Generic Name Dose Route Start Last Admin Trade Name Freq PRN Reason Stop Dose Admin Acetaminophen 650 mg 02/24/18 13:27 03/01/18 14:11 Tylenol - PO 650 mg Q4H PRN Administration FEVER Amino Acids 30 ml 02/28/18 17:30 03/01/18 08:59 Prosource No Carb Liquid Pkt PO 30 ml BID@0800,1730 [facility] Administration Benzocaine/Menthol 1 each 02/23/18 06:42 Cepacol Lozenge - MM PRN PRN SORE THROAT Diphenhydramine HCl 12.5 mg 02/22/18 13:34 Benadryl Injection - IVPUSH ONCE PRN FOR ITCHING Heparin Sodium (Porcine) 5,000 unit 02/25/18 11:45 03/01/18 11:00 Heparin - SQ 5,000 unit BID JERED Administration Fluconazole 100 mls @ 100 mls/hr 02/23/18 10:00 03/01/18 14:12 Diflucan 200 Mg/Ns Premixed Ivpb - IVPB 100 mls/hr DAILY JERED Administration Piperacillin Sod/Tazobactam 50 mls @ 100 mls/hr 02/22/18 18:00 03/01/18 10:59 Sod 3.375 gm/ Dextrose IVPB 100 mls/hr Q8H-IV JERED Administration Protocol Lactated Ringer's 1,000 ml in 1,000 mls @ 75 mls/hr 02/22/18 19:30 03/01/18 14:11 Lactated Ringers Solution IV 75 mls/hr ASDIR JERED Administration Levothyroxine Sodium 112 mcg 02/25/18 07:00 03/01/18 06:14 Synthroid - PO 112 mcg DAILY@0700 JERED Administration Ondansetron HCl 8 mg 02/23/18 06:39 02/23/18 11:55 Zofran Injection IVPB 8 mg Q8H PRN Administration NAUSEA Oxycodone HCl 5 mg 03/01/18 15:03 Roxicodone - PO Q6H PRN PAIN LEVEL 5-10 Pantoprazole Sodium 40 mg 02/25/18 10:00 03/01/18 11:00 Protonix - PO 40 mg DAILY JERED Administration Promethazine HCl 12.5 mg 02/22/18 13:34 Phenergan Injection - IVPB Q6H PRN NAUSEA-FOR RESCUE AFTER 15 MIN Simethicone 80 mg 02/24/18 14:27 02/24/18 15:03 Mylicon - PO 80 mg Q4H PRN Administration GAS ASSESSMENT/PLAN: 57 year old man with history of hypothyroidism, Afib w/ RVR stage 1 colon cancer with Sue procedure performed 02/22 (Dr. Ventura). Patient with urine leak from abdominal site (02/26) found to have L sided ureteral extravasation with L nephrostomy tube placement (02/28). Brought to ICU s/p rapid response with tachycardia, hypotension and respiratory distress, satting into the 70s. Required NRB. Rhythm maintained sinus tachycardia and patient did not go into Afib w. RVR. As patient with recent intrabdominal urine leak w/ leukocytosis s/p abd surgery consider septic shock response. Patient w/ history of cancer, Afib, recent surgery and not on AC, suspicious for PE. Patient pending, CTA chest, CT abd, IR intervention, cardiac profile. PLAN Cardiac Tachycardia w/ hypotension during rapid response, pmhx Afib w/ RVR - ECHO (02/21) with 65% EF no gross valvular dysfunction - pending cardiac profile Renal L ureteral extravasation s/p abdominal surgery, w/ nephrostomy tube placement - 02/26: flush of urine from the abdomen, concerning for bladder or ureteral injury w/ CT Urogram showing left sided distal ureteral blush of contrast. - L nephrostomy tube placed 02/28 - Lentz - monitor urine output ID GI abscess, urine leak w/ leukocytosis Rapid response possibly due to septic shock / urine leak w/in the abdomen - Blood cultures (02/17) - without growth - Abscess culture (02/20) - lactose fermenting gram neg bacilli, coag pos staph , yeast - Per ID: Zosyn, Diflucan (for yeast growth) - Tylenol PRN for fever Pulm Post op Day# 1 of L nephrostomy tube placement, Resp Distress O2 70s during rapid response. Patient with colon cancer, afib w/ RVR, no on AC 2/2 to procedures, high risk for PE - pending Abd CT, Chest CTA - Incentive spirometry - Early ambulation - Repeat CXR Oncology Stage 1 Colon CA - Jung procedure without complications. - Followed by pathology and oncology. Endo Hypothyroidism - TSH within normal - Levothyroxine home med Analgesia - Oxycodone 5mg Q6H PRN F/E/N - NPO - 1L LR @ 75ml/hr - 2L NS ordered for septic shock GI ppx - Protonix 40mg daily DVT ppx - SCDs Dispo: We will continue to follow the patient. Thank you for this consultative opportunity. Visit type - Emergency Visit Emergency Visit: Yes ED Registration Date: 02/13/18 Care time: The patient presented to the Emergency Department on the above date and was hospitalized for further evaluation of their emergent condition. - New Patient This patient is new to me today: Yes Date on this admission: 03/01/18 - Critical Care Critical Care patient: Yes Total Critical Care Time (in minutes): 35 Critical Care Statement: The care of this patient involved high complexity decision making to prevent further life threatening deterioration of the patient 's condition and/or to evaluate & treat vital organ system(s) failure or risk of failure.
[2018-03-01] MEDS ORDERED: LACTATED RINGERS SOLUTION 1000 ML INFUS.BAG IV ONE (16:45)
[2018-03-01] MEDS ORDERED: SODIUM CHLORIDE 1,000 ML IV STA ×2 (16:46→16:47)
--- NOTE | 2018-03-01 18:49 | PROC ---
Central Line Insertion Indication: CVP Monitoring Risks and Benefits Explained: Yes Consent on Chart: Yes Central Line: Triple Lumen Catheter Anesthesia: 1% Lidocaine Sterile Technique: Yes Ultrasound Guided Assistance: Yes Position: Right Internal Jugular Post Insertion: Yes: Chest X-Ray Ordered Sterile Dressing Applied: Yes
--- NOTE | 2018-03-01 19:12 | HOSP ---
Subjective - Review of Symptoms Subjective: saw and evaluated this patient during [employer] for diaphoresis and hypotension On arrival BP HR saturtating 93% on non-rebreather pt states he feels better since laying down and symptoms have resolved stat EKG done showing sinus tachycardia/ concern for PE was raised given prolonged hospital course, surgery and malignancy NS started with Bp initially responding to IVF and then started dropping Spoke wtih surgery who expressed with concerns for uroma. D/w IR who came and did stat pigtail insertion into uroma with >1L urine Central line placed using seldinger technique with u/s guidance placed by resident Dr Cardoza under my supervision Case was d/w with ICU resident and accepted for transfer Spoke with daughter in detail about events as they occurred. all questions were answered and she verbalized understanding Daughter and patient requested that hospitalist service to take over care at this time The care of this patient involved high complexity decision making to prevent further life threatening deterioration of the patient's condition and/or to evaluate & treat vital organ system(s) failure or risk of failure. 50 mins Physical Examination Vital Signs: Vital Signs Temperature 97.5 F L 03/01/18 14:59 Pulse Rate 114 H 03/01/18 14:59 Respiratory Rate 16 03/01/18 14:59 Blood Pressure 96/54 L 03/01/18 14:59 O2 Sat by Pulse Oximetry (%) 96 03/01/18 09:00 Labs: CBC, BMP 03/01/18 06:15 03/01/18 06:15
[2018-03-01] MEDS ORDERED: LACTATED RINGERS SOLUTION 1,000 ML/1,000 ML INFUS.BAG IV SCH ×2 (19:15)
[2018-03-01] MEDS ORDERED: BENZOCAINE/MENTH/CETYLPYRD CL 1 EACH LOZENGE MM PRN (20:35)
[2018-03-01] MEDS ORDERED: PROMETHAZINE HCL 25 MG/1 ML VIAL IVPB PRN (20:35)
[2018-03-01] MEDS ORDERED: SIMETHICONE 80 MG TAB.CHEW (FP) PO PRN (20:35)
[2018-03-01] MEDS ORDERED: ACETAMINOPHEN 325 MG TABLET (FP) PO PRN (20:35)
[2018-03-01] MEDS ORDERED: ONDANSETRON 4 MG/2 ML VIAL IVPB PRN (20:35)
[2018-03-01 21:46] LABS: PERITONEAL FLUID LYMPHOCYTE 3 %; PERITONEAL FLUID MACROPHAGE 4 %; PERITONEAL FLUID MONOCYTE 7 %; PERITONEAL FLUID NEUTROPHIL 86 %; PERITONEAL RBC 3384 /mm3
[2018-03-01] MEDS: MUPIROCIN 2% TOPICAL OINTMENT FOR DECOLONIZATION NS SCH (22:15)
[2018-03-01 22:35] LABS: ALBUMIN 1.4 g/dl (3.4-5.0); ALK PHOS 174 U/L (45-117); ANION GAP 9 MMOL/L (8-16); BILIRUBIN,TOTAL 0.4 mg/dL (0.2-1); BLOOD UREA NITROGEN 7 mg/dL (7-18); CHLORIDE 109 mmol/L (98-107); CO2 23 mmol/L (21-32); CREATININE 0.5 mg/dL (0.55-1.3); GLUCOSE,RANDOM 112 mg/dL (74-106); POTASSIUM 4.3 mmol/L (3.5-5.1); SGOT/AST 37 U/L (15-37); SGPT/ALT 45 U/L (13-61); SODIUM 141 mmol/L (136-145); TOT PROT 4.7 g/dl (6.4-8.2)
[2018-03-01 22:37] LABS: CALCIUM 6.2 mg/dL (8.5-10.1)
[2018-03-02] MEDS ORDERED: DEXTROSE 5%-WATER - 50 ML IVPB ONE ×4 (02:44→23:24)
[2018-03-02] MEDS ORDERED: PIPERACILLIN/TAZOBACTAM 3.375 GM VIAL IVPB ONE ×4 (02:44→23:24)
[2018-03-02] MEDS: PIPERACILLIN/TAZOB 3.375 GM 3.375 GM in DEXTROSE 5%-WATER - 50 ML IVPB SCH ×3 (03:02→17:43)
[2018-03-02 06:09] LABS: BASO % 0.6 % (0-2.0); EOS % 0.8 % (0-4.5); HEMATOCRIT 26.3 % (35.4-49); HEMOGLOBIN 8.2 GM/dL (11.7-16.9); LYMPH % 9.9 % (8-40); MCHC 31.2 g/dl (32.0-35.9); MEAN CELL VOLUME 83.4 fl (80-96); MEAN PLT VOLUME 6.3 fl (7.5-11.1); MONO % 6.1 % (3.8-10.2); NEUT % 82.6 % (42.8-82.8); PLATELET COUNT 464 K/MM3 (134-434); RBC 3.15 M/mm3 (4.00-5.60); RDW 20.4 % (11.9-15.9); WHITE BLOOD COUNT 11.9 K/mm3 (4.0-10.0)
[2018-03-02 06:49] LABS: ALBUMIN 1.3 g/dl (3.4-5.0); ALK PHOS 155 U/L (45-117); ANION GAP 5 MMOL/L (8-16); BILIRUBIN,TOTAL 0.4 mg/dL (0.2-1); BLOOD UREA NITROGEN 6 mg/dL (7-18); CHLORIDE 108 mmol/L (98-107); CO2 25 mmol/L (21-32); CREATININE 0.5 mg/dL (0.55-1.3); GLUCOSE,RANDOM 102 mg/dL (74-106); MAGNESIUM 2.3 mg/dL (1.8-2.4); PHOSPHOROUS 3.1 mg/dL (2.5-4.9); POTASSIUM 4.3 mmol/L (3.5-5.1); SGOT/AST 26 U/L (15-37); SGPT/ALT 39 U/L (13-61); SODIUM 139 mmol/L (136-145); TOT PROT 4.7 g/dl (6.4-8.2)
[2018-03-02 07:11] LABS: CALCIUM 6.6 mg/dL (8.5-10.1)
[2018-03-02] MEDS ORDERED: PT OWN MED DRAWER 7, Y5N ONE (10:00)
[2018-03-02] MEDS: LEVOTHYROXINE NA 112 MCG TABLET (FP) PO SCH (10:08)
[2018-03-02] MEDS: PANTOPRAZOLE 40 MG TABLET (FP) PO SCH (10:09)
[2018-03-02] MEDS: AMINO ACIDS/PROTEIN HYDROLYS 30 ML LIQUID.PKT PO SCH ×2 (10:09→16:55)
[2018-03-02] MEDS: HEPARIN NA (PORCINE) 5,000 UNITS/ML 1ML VIAL SQ SCH (10:09)
[2018-03-02] MEDS: MUPIROCIN 2% TOPICAL OINTMENT FOR DECOLONIZATION NS SCH ×2 (10:30→23:00)
--- NOTE | 2018-03-02 11:58 | PN ---
Teaching Attending Note Name of Resident: Lilly Calvillo ATTENDING PHYSICIAN STATEMENT I saw and evaluated the patient. I reviewed the resident's note and discussed the case with the resident. I agree with the resident's findings and plan as documented. SUBJECTIVE: Pt seen and examined in the ICU. Transferred down to the ICU after rapid response called for hypotensive, tachycardic, hypoxic episode. Has received ~ 10L IVF last 2 days. OBJECTIVE: Vital Signs Period Temp Pulse Resp BP Sys/Cavanaugh Pulse Ox Last 24 Hr 97.5 F-98.9 F 90-230 16-38 78-110/50-78 68-98 Intake & Output 02/27/18 02/28/18 03/01/18 03/02/18 23:59 23:59 23:59 23:59 Intake Total 787 2500 6475 925 Output Total 2950 1950 4200 1230 Balance -2163 550 2275 -305 Gen: tachypneic at rest on ventimask Heart: RRR Lung: basilar rales Abd: soft, nontender, +ostomy with air in bag, Left nephrostomy, abdominal drain Ext: + edema CBC, BMP 03/02/18 05:30 03/02/18 05:30 Active Medications Acetaminophen (Tylenol -) 650 mg PO Q4H PRN PRN Reason: FEVER Last Admin: 03/02/18 00:47 Dose: 650 mg Amino Acids (Prosource No Carb Liquid Pkt) 30 ml PO BID@0800,1730 [facility] Last Admin: 03/02/18 10:09 Dose: 30 ml Benzocaine/Menthol (Cepacol Lozenge -) 1 each MM PRN PRN PRN Reason: SORE THROAT Chlorhexidine Gluconate (Hibiclens For Decolonization -) 1 applic TP HS [facility] Last Admin: 03/02/18 00:00 Dose: Not Given Diphenhydramine HCl (Benadryl Injection -) 12.5 mg IVPUSH ONCE PRN PRN Reason: FOR ITCHING Heparin Sodium (Porcine) (Heparin -) 5,000 unit SQ BID [facility] Last Admin: 03/02/18 10:09 Dose: 5,000 unit Lactated Ringer's (Lactated Ringers Solution) 1,000 ml in 1,000 mls @ 75 mls/ hr IV ASDIR JERED Fluconazole (Diflucan 200 Mg/Ns Premixed Ivpb -) 100 mls @ 100 mls/hr IVPB DAILY [facility] Piperacillin Sod/Tazobactam (Sod 3.375 gm/ Dextrose) 50 mls @ 100 mls/hr IVPB Q8H-IV JERED; Protocol Last Admin: 03/02/18 10:10 Dose: 100 mls/hr Levothyroxine Sodium (Synthroid -) 112 mcg PO DAILY@0700 [facility] Last Admin: 03/02/18 10:08 Dose: 112 mcg Mupirocin (Bactroban Ointment (For Decolonization) -) 1 applic NS BID [facility] Stop: 03/06/18 21:59 Last Admin: 03/01/18 22:15 Dose: 1 applic Ondansetron HCl (Zofran Injection) 8 mg IVPB Q8H PRN PRN Reason: NAUSEA Oxycodone HCl (Roxicodone -) 5 mg PO Q6H PRN PRN Reason: PAIN LEVEL 5-10 Last Admin: 03/02/18 00:47 Dose: 5 mg Pantoprazole Sodium (Protonix -) 40 mg PO DAILY [facility] Last Admin: 03/02/18 10:09 Dose: 40 mg Promethazine HCl (Phenergan Injection -) 12.5 mg IVPB Q6H PRN PRN Reason: NAUSEA-FOR RESCUE AFTER 15 MIN Simethicone (Mylicon -) 80 mg PO Q4H PRN PRN Reason: GAS ASSESSMENT AND PLAN: Colon Ca s/p Sigmoid Colectomy 02/14 Post op Fecal Peritonitis/Perforated Diverticulum s/p ex-lap/abdominal washout/Left Colectomy/End Colostomy Lone vs Paroxysmal Atrial Fibrillation Acute Hypoxic Respiratory Failure Volume Overload Left Ureteral Leak s/p Nephrostomy placement Intra-abdominal Abscess s/p IR drainage Septic Shock +Troponins likely Demand Ischemia Hypothyroidism - continue antibiotics - f/u pending cultures - hold IVF as he appears volume overloaded - monitor urine output, creatinine - lasix as needed when BP tolerates - pain control - incentive spirometry - O2 to keep Spo2 >90% - DVT prophylaxis - continue ICU monitoring critical care time spent in reviewing chart, evaluating patient and formulating plan 35 min
[2018-03-02 12:01] LABS: URINE APPEARANCE CLEAR; URINE BILIRUBIN NEGATIVE (<2.0 mg/dL); URINE COLOR YELLOW; URINE GLUCOSE (UA) NEGATIVE (NEGATIVE); URINE KETONE NEGATIVE (NEGATIVE); URINE LEUK ESTERASE NEGATIVE (NEGATIVE); URINE NITRITE NEGATIVE (NEGATIVE); URINE PROTEIN NEGATIVE (NEGATIVE); URINE UROBILINOGEN NEGATIVE mg/dL (0.2-1.0)
[2018-03-02] MEDS: FLUCONAZOLE 200 MG/NS 100 ML IVPB SCH (12:02)
[2018-03-02 12:14] LABS: EPI CELLS RARE /HPF (FEW); URINE HYALINE CAST 2 /lpf; URINE MUCUS RARE
--- NOTE | 2018-03-02 13:12 | PN ---
Physical Exam: SUBJECTIVE: Patient seen and examined at bedside- overnight patient did drain some pus however he is denying any abdominal pain. he has received almost 10L of fluids in the course of 2 days. OBJECTIVE: Vital Signs Period Temp Pulse Resp BP Sys/Cavanaugh Pulse Ox Last 24 Hr 97.5 F-98.9 F 85-230 16-38 78-110/50-78 68-98 GENERAL: The patient is awake, tachypneic wearing a non-rebreather EYES:no scleral icterus. NECK:no JVD, no lymphadenopathy LUNGS: rales appreciated a bilaterally (especially at the bases). HEART: Regular rate and rhythm, S1, S2 without murmur, rub or gallop. ABDOMEN: Soft, nontender, slightly distended +BS; left nephrostomy tube with yellow urine and abdominal drain present . EXTREMITIES: 2+ pulses, warm, well-perfused, trace edema. SKIN: Warm, dry, normal turgor, no rashes or lesions noted Laboratory Results - last 24 hr 03/01/18 03/01/18 03/01/18 06:15 18:00 21:05 WBC RBC Hgb Hct MCV MCH MCHC RDW Plt Count MPV Absolute Neuts (auto) Neutrophils % Lymphocytes % Monocytes % Eosinophils % Basophils % Nucleated RBC % Sodium 141 Potassium 4.3 Chloride 109 H Carbon Dioxide 23 Anion Gap 9 BUN 7 Creatinine 0.5 L Creat Clearance w eGFR > 60 Random Glucose 112 H Lactic Acid Calcium 6.9 L* 6.2 L* Phosphorus Magnesium Total Bilirubin 0.4 AST 37 ALT 45 Alkaline Phosphatase 174 H Creatine Kinase 171 Creatine Kinase Index 3.9 CK-MB (CK-2) 6.7 H Troponin I 0.86 H* Total Protein 4.7 L Albumin 1.4 L Urine Color Urine Appearance Urine pH Ur Specific [place] Urine Protein Urine Glucose (UA) Urine Ketones Urine Blood Urine Nitrite Urine Bilirubin Urine Urobilinogen Ur Leukocyte Esterase Urine WBC (Auto) Urine RBC (Auto) Ur Epithelial Cells Hyaline Casts Urine Mucus Peritoneal WBC 3433 Peritoneal RBC 3384 Periton Neutrophils 86 Periton Lymphocytes 3 Peritoneal Monocytes 7 Periton Macrophages 4 03/01/18 03/02/18 03/02/18 21:05 05:30 05:30 WBC 11.9 H RBC 3.15 L Hgb 8.2 L Hct 26.3 L MCV 83.4 MCH 26.0 MCHC 31.2 L RDW 20.4 H Plt Count 464 H MPV 6.3 L Absolute Neuts (auto) 9.8 H Neutrophils % 82.6 Lymphocytes % 9.9 Monocytes % 6.1 Eosinophils % 0.8 Basophils % 0.6 Nucleated RBC % 0 Sodium 139 Potassium 4.3 Chloride 108 H Carbon Dioxide 25 Anion Gap 5 L BUN 6 L Creatinine 0.5 L Creat Clearance w eGFR > 60 Random Glucose 102 Lactic Acid 1.1 Calcium 6.6 L* Phosphorus 3.1 Magnesium 2.3 Total Bilirubin 0.4 AST 26 ALT 39 Alkaline Phosphatase 155 H Creatine Kinase Creatine Kinase Index CK-MB (CK-2) Troponin I Total Protein 4.7 L Albumin 1.3 L Urine Color Urine Appearance Urine pH Ur Specific [place] Urine Protein Urine Glucose (UA) Urine Ketones Urine Blood Urine Nitrite Urine Bilirubin Urine Urobilinogen Ur Leukocyte Esterase Urine WBC (Auto) Urine RBC (Auto) Ur Epithelial Cells Hyaline Casts Urine Mucus Peritoneal WBC Peritoneal RBC Periton Neutrophils Periton Lymphocytes Peritoneal Monocytes Periton Macrophages 03/02/18 03/02/18 05:30 10:00 WBC RBC Hgb Hct MCV MCH MCHC RDW Plt Count MPV Absolute Neuts (auto) Neutrophils % Lymphocytes % Monocytes % Eosinophils % Basophils % Nucleated RBC % Sodium Potassium Chloride Carbon Dioxide Anion Gap BUN Creatinine Creat Clearance w eGFR Random Glucose Lactic Acid Calcium Phosphorus Magnesium Total Bilirubin AST ALT Alkaline Phosphatase Creatine Kinase Creatine Kinase Index CK-MB (CK-2) Troponin I 0.61 H* Total Protein Albumin Urine Color Yellow Urine Appearance Clear Urine pH 5.0 Ur Specific [place] 1.015 Urine Protein Negative Urine Glucose (UA) Negative Urine Ketones Negative Urine Blood 1+ H Urine Nitrite Negative Urine Bilirubin Negative Urine Urobilinogen Negative Ur Leukocyte Esterase Negative Urine WBC (Auto) 5 Urine RBC (Auto) 17 Ur Epithelial Cells Rare Hyaline Casts 2 Urine Mucus Rare Peritoneal WBC Peritoneal RBC Periton Neutrophils Periton Lymphocytes Peritoneal Monocytes Periton Macrophages Active Medications Generic Name Dose Route Start Last Admin Trade Name Freq PRN Reason Stop Dose Admin Acetaminophen 650 mg 03/01/18 20:35 03/02/18 00:47 Tylenol - PO 650 mg Q4H PRN Administration FEVER Amino Acids 30 ml 03/02/18 08:00 03/02/18 10:09 Prosource No Carb Liquid Pkt PO 30 ml BID@0800,1730 [facility] Administration Benzocaine/Menthol 1 each 03/01/18 20:35 Cepacol Lozenge - MM PRN PRN SORE THROAT Chlorhexidine Gluconate 1 applic 03/01/18 22:00 03/02/18 00:00 Hibiclens For Decolonization - TP Not Given HS JERED Diphenhydramine HCl 12.5 mg 03/01/18 20:35 Benadryl Injection - IVPUSH ONCE PRN FOR ITCHING Heparin Sodium (Porcine) 5,000 unit 03/01/18 22:00 03/02/18 10:09 Heparin - SQ 5,000 unit BID JERED Administration Lactated Ringer's 1,000 ml in 1,000 mls @ 75 mls/hr 03/01/18 19:15 Lactated Ringers Solution IV ASDIR JERED Fluconazole 100 mls @ 100 mls/hr 03/02/18 10:00 03/02/18 12:02 Diflucan 200 Mg/Ns Premixed Ivpb - IVPB 100 mls/hr DAILY J[facility] Administration Piperacillin Sod/Tazobactam 50 mls @ 100 mls/hr 03/02/18 02:00 03/02/18 10:10 Sod 3.375 gm/ Dextrose IVPB 100 mls/hr Q8H-IV JERED Administration Protocol Levothyroxine Sodium 112 mcg 03/02/18 07:00 03/02/18 10:08 Synthroid - PO 112 mcg DAILY@0700 [facility] Administration Mupirocin 1 applic 03/01/18 22:00 03/02/18 10:30 Bactroban Ointment (For Decolonization) - NS 03/06/18 21:59 1 applic BID [facility] Administration Ondansetron HCl 8 mg 03/01/18 20:35 Zofran Injection IVPB Q8H PRN NAUSEA Oxycodone HCl 5 mg 03/01/18 20:35 03/02/18 00:47 Roxicodone - PO 5 mg Q6H PRN Administration PAIN LEVEL 5-10 Pantoprazole Sodium 40 mg 03/02/18 10:00 03/02/18 10:09 Protonix - PO 40 mg DAILY JERED Administration Promethazine HCl 12.5 mg 03/01/18 20:35 Phenergan Injection - IVPB Q6H PRN NAUSEA-FOR RESCUE AFTER 15 MIN Simethicone 80 mg 03/01/18 20:35 Mylicon - PO Q4H PRN GAS ASSESSMENT/PLAN: 57 year old man with history of hypothyroidism, Afib w/ RVR stage 1 colon cancer with Sue procedure performed 02/22 (Dr. Ventura). Patient with urine leak from abdominal site (02/26) found to have L sided ureteral extravasation with L nephrostomy tube placement (02/28). PLAN #Septic Shock possibly 2/2 urine leak -patient had central line placed yesterday upon transfer to ICU -Maps were in 60's-70's overnight -CX pending -current abx as per ID -repeat CXR in AM -monitor hemodynamics #GI Abcess with urine leak and leukocytosis - Blood cultures (02/17) - without growth - Abscess culture (02/20) - lactose fermenting gram neg bacilli, coag pos staph , yeast - Per ID: Zosyn, Diflucan (for yeast growth) - Tylenol PRN for fever #Ureteral Extravasation with nephrostomy tube placementt. - L nephrostomy tube placed 02/28 - Lentz - monitor urine output -ab/pelvis CT pending #Colon Ca s/p Harrtmanns procedure -f/u pathology -f/u oncology recs #Hypothyroidism -TSH within normal limits c/w home dose of levothyroxine F/E/N - NPO - 1L LR @ 75ml/hr - 2L NS ordered for septic shock GI ppx - Protonix 40mg daily DVT ppx - SCDs . Problem List - Problems (1) Abdominal pain Code(s): R10.9 - UNSPECIFIED ABDOMINAL PAIN Qualifiers: Abdominal location: left lower quadrant Qualified Code(s): R10.32 - Left lower quadrant pain (2) Abnormal colonoscopy Code(s): R93.3 - ABNORMAL FINDINGS ON DX IMAGING OF PRT DIGESTIVE TRACT (3) Afib Code(s): I48.91 - UNSPECIFIED ATRIAL FIBRILLATION (4) Left ureteral injury Code(s): S37.10XA - UNSPECIFIED INJURY OF URETER, INITIAL ENCOUNTER Visit type - Emergency Visit Emergency Visit: Yes ED Registration Date: 02/13/18 Care time: The patient presented to the Emergency Department on the above date and was hospitalized for further evaluation of their emergent condition. - New Patient This patient is new to me today: Yes Date on this admission: 03/02/18 - Critical Care Critical Care patient: No
--- NOTE | 2018-03-02 13:25 | PN ---
Physical Exam: SUBJECTIVE: Patient seen and examined Patient resting, no acute distress, on ventimask IR uroma drain with serosang fluid OBJECTIVE: Vital Signs Period Temp Pulse Resp BP Sys/Cavanaugh Pulse Ox Last 24 Hr 97.5 F-98.9 F 85-230 16-38 78-110/50-78 68-98 GENERAL: The patient is awake, alert, and fully oriented, in no acute distress, on ventimask HEAD: Normal with no signs of trauma. EYES: PERRLA, extraocular movements NECK: Trachea midline, full range of motion LUNGS: Slightly rhonchous breahth sounds bilaterally, no wheezes, no crackles, no accessory muscle use. HEART: Regular rate and rhythm, S1, S2 without murmur, rub or gallop. ABDOMEN: abdominal wound dressings, clean dry EXTREMITIES: 2+ pulses, warm, well-perfused, no edema. NEUROLOGICAL: Cranial nerves II through XII grossly intact. PSYCH: Normal mood, normal affect. SKIN: Warm, dry, normal turgor, no rashes or lesions noted Laboratory Results - last 24 hr 03/01/18 03/01/18 03/01/18 06:15 18:00 21:05 WBC RBC Hgb Hct MCV MCH MCHC RDW Plt Count MPV Absolute Neuts (auto) Neutrophils % Lymphocytes % Monocytes % Eosinophils % Basophils % Nucleated RBC % Sodium 141 Potassium 4.3 Chloride 109 H Carbon Dioxide 23 Anion Gap 9 BUN 7 Creatinine 0.5 L Creat Clearance w eGFR > 60 Random Glucose 112 H Lactic Acid Calcium 6.9 L* 6.2 L* Phosphorus Magnesium Total Bilirubin 0.4 AST 37 ALT 45 Alkaline Phosphatase 174 H Creatine Kinase 171 Creatine Kinase Index 3.9 CK-MB (CK-2) 6.7 H Troponin I 0.86 H* Total Protein 4.7 L Albumin 1.4 L Urine Color Urine Appearance Urine pH Ur Specific [place] Urine Protein Urine Glucose (UA) Urine Ketones Urine Blood Urine Nitrite Urine Bilirubin Urine Urobilinogen Ur Leukocyte Esterase Urine WBC (Auto) Urine RBC (Auto) Ur Epithelial Cells Hyaline Casts Urine Mucus Peritoneal WBC 3433 Peritoneal RBC 3384 Periton Neutrophils 86 Periton Lymphocytes 3 Peritoneal Monocytes 7 Periton Macrophages 4 03/01/18 03/02/18 03/02/18 21:05 05:30 05:30 WBC 11.9 H RBC 3.15 L Hgb 8.2 L Hct 26.3 L MCV 83.4 MCH 26.0 MCHC 31.2 L RDW 20.4 H Plt Count 464 H MPV 6.3 L Absolute Neuts (auto) 9.8 H Neutrophils % 82.6 Lymphocytes % 9.9 Monocytes % 6.1 Eosinophils % 0.8 Basophils % 0.6 Nucleated RBC % 0 Sodium 139 Potassium 4.3 Chloride 108 H Carbon Dioxide 25 Anion Gap 5 L BUN 6 L Creatinine 0.5 L Creat Clearance w eGFR > 60 Random Glucose 102 Lactic Acid 1.1 Calcium 6.6 L* Phosphorus 3.1 Magnesium 2.3 Total Bilirubin 0.4 AST 26 ALT 39 Alkaline Phosphatase 155 H Creatine Kinase Creatine Kinase Index CK-MB (CK-2) Troponin I Total Protein 4.7 L Albumin 1.3 L Urine Color Urine Appearance Urine pH Ur Specific [place] Urine Protein Urine Glucose (UA) Urine Ketones Urine Blood Urine Nitrite Urine Bilirubin Urine Urobilinogen Ur Leukocyte Esterase Urine WBC (Auto) Urine RBC (Auto) Ur Epithelial Cells Hyaline Casts Urine Mucus Peritoneal WBC Peritoneal RBC Periton Neutrophils Periton Lymphocytes Peritoneal Monocytes Periton Macrophages 03/02/18 03/02/18 05:30 10:00 WBC RBC Hgb Hct MCV MCH MCHC RDW Plt Count MPV Absolute Neuts (auto) Neutrophils % Lymphocytes % Monocytes % Eosinophils % Basophils % Nucleated RBC % Sodium Potassium Chloride Carbon Dioxide Anion Gap BUN Creatinine Creat Clearance w eGFR Random Glucose Lactic Acid Calcium Phosphorus Magnesium Total Bilirubin AST ALT Alkaline Phosphatase Creatine Kinase Creatine Kinase Index CK-MB (CK-2) Troponin I 0.61 H* Total Protein Albumin Urine Color Yellow Urine Appearance Clear Urine pH 5.0 Ur Specific [place] 1.015 Urine Protein Negative Urine Glucose (UA) Negative Urine Ketones Negative Urine Blood 1+ H Urine Nitrite Negative Urine Bilirubin Negative Urine Urobilinogen Negative Ur Leukocyte Esterase Negative Urine WBC (Auto) 5 Urine RBC (Auto) 17 Ur Epithelial Cells Rare Hyaline Casts 2 Urine Mucus Rare Peritoneal WBC Peritoneal RBC Periton Neutrophils Periton Lymphocytes Peritoneal Monocytes Periton Macrophages Active Medications Generic Name Dose Route Start Last Admin Trade Name Freq PRN Reason Stop Dose Admin Acetaminophen 650 mg 03/01/18 20:35 03/02/18 00:47 Tylenol - PO 650 mg Q4H PRN Administration FEVER Amino Acids 30 ml 03/02/18 08:00 03/02/18 10:09 Prosource No Carb Liquid Pkt PO 30 ml BID@0800,1730 [facility] Administration Benzocaine/Menthol 1 each 03/01/18 20:35 Cepacol Lozenge - MM PRN PRN SORE THROAT Chlorhexidine Gluconate 1 applic 03/01/18 22:00 03/02/18 00:00 Hibiclens For Decolonization - TP Not Given HS JERED Diphenhydramine HCl 12.5 mg 03/01/18 20:35 Benadryl Injection - IVPUSH ONCE PRN FOR ITCHING Heparin Sodium (Porcine) 5,000 unit 03/01/18 22:00 03/02/18 10:09 Heparin - SQ 5,000 unit BID JERED Administration Fluconazole 100 mls @ 100 mls/hr 03/02/18 10:00 03/02/18 12:02 Diflucan 200 Mg/Ns Premixed Ivpb - IVPB 100 mls/hr DAILY [facility] Administration Piperacillin Sod/Tazobactam 50 mls @ 100 mls/hr 03/02/18 02:00 03/02/18 10:10 Sod 3.375 gm/ Dextrose IVPB 100 mls/hr Q8H-IV JERED Administration Protocol Levothyroxine Sodium 112 mcg 03/02/18 07:00 03/02/18 10:08 Synthroid - PO 112 mcg DAILY@0700 [facility] Administration Mupirocin 1 applic 03/01/18 22:00 03/02/18 10:30 Bactroban Ointment (For Decolonization) - NS 03/06/18 21:59 1 applic BID [facility]ED Administration Ondansetron HCl 8 mg 03/01/18 20:35 Zofran Injection IVPB Q8H PRN NAUSEA Oxycodone HCl 5 mg 03/01/18 20:35 03/02/18 00:47 Roxicodone - PO 5 mg Q6H PRN Administration PAIN LEVEL 5-10 Pantoprazole Sodium 40 mg 03/02/18 10:00 03/02/18 10:09 Protonix - PO 40 mg DAILY JERED Administration Promethazine HCl 12.5 mg 03/01/18 20:35 Phenergan Injection - IVPB Q6H PRN NAUSEA-FOR RESCUE AFTER 15 MIN Simethicone 80 mg 03/01/18 20:35 Mylicon - PO Q4H PRN GAS ASSESSMENT/PLAN: 57 year old man with history of hypothyroidism, Afib w/ RVR stage 1 colon cancer with Sue procedure performed 02/22 (Dr. Ventura). Patient with urine leak from abdominal site (02/26) found to have L sided ureteral extravasation with L nephrostomy tube placement (02/28). Brought to ICU s/p rapid response with tachycardia, hypotension and respiratory distress, satting into the 70s. Required NRB. Rhythm maintained sinus tachycardia and patient did not go into Afib w. RVR. As patient with recent intrabdominal urine leak w/ leukocytosis s/p abd surgery consider septic shock response. Patient w/ history of cancer, Afib, recent surgery and not on AC, suspicious for PE. Patient pending CT abd. PLAN Cardiac Tachycardia w/ hypotension during rapid response, pmhx Afib w/ RVR - ECHO (02/21) with 65% EF no gross valvular dysfunction - elevated troponins down trending likely 2/2 demand - RIJ central line placed 03/01 Renal L ureteral extravasation s/p abdominal surgery, w/ nephrostomy tube placement - 02/26: flush of urine from the abdomen, concerning for bladder or ureteral injury w/ CT Urogram showing left sided distal ureteral blush of contrast. - L nephrostomy tube placed 02/28 - Mazariegos - monitor urine output - pending Abd CT ID GI abscess, urine leak w/ leukocytosis Rapid response possibly due to septic shock 2/2 urine leak w/in the abdomen - Blood cultures (02/17) - without growth - Abscess culture (02/20) - lactose fermenting gram neg bacilli, coag pos staph , yeast - Per ID: Zosyn, Diflucan - Tylenol PRN for fever Pulm Resp Distress O2 70s during rapid response. - ventimask - Early ambulation - Repeat CXR Oncology Stage 1 Colon CA - Sue procedure - Followed by pathology and oncology. Endo Hypothyroidism - TSH within normal - Levothyroxine home med Analgesia - Oxycodone 5mg Q6H PRN F/E/N - CLD - d/c fluids 2/2 concern over fluid overload GI ppx - Protonix 40mg daily DVT ppx - heparin SQ Lines, Tubes: mazariegos, IR uroma drain, L nephrostomy drain, PIV, RIJ central access(03/01) Dispo: continue ICU monitoring. Visit type - Emergency Visit Emergency Visit: No - New Patient This patient is new to me today: No - Critical Care Critical Care patient: No
[2018-03-02] MEDS ORDERED: FUROSEMIDE 40 MG/4 ML INJECTABLE VIAL IVPUSH ONE ×2 (15:15→16:30)
--- NOTE | 2018-03-02 15:15 | PN ---
Progress Note, Physician History of Present Illness: patient went into resp distress sepsis was txed to icu currently stable getting worked up for pe family in room - Current Medication List Current Medications: Active Medications Acetaminophen (Tylenol -) 650 mg PO Q4H PRN PRN Reason: FEVER Last Admin: 03/02/18 00:47 Dose: 650 mg Amino Acids (Prosource No Carb Liquid Pkt) 30 ml PO BID@0800,1730 [facility] Last Admin: 03/02/18 10:09 Dose: 30 ml Benzocaine/Menthol (Cepacol Lozenge -) 1 each MM PRN PRN PRN Reason: SORE THROAT Chlorhexidine Gluconate (Hibiclens For Decolonization -) 1 applic TP HS [facility] Last Admin: 03/02/18 00:00 Dose: Not Given Diphenhydramine HCl (Benadryl Injection -) 12.5 mg IVPUSH ONCE PRN PRN Reason: FOR ITCHING Furosemide (Lasix Injection -) 40 mg IVPUSH ONCE ONE Stop: 03/02/18 15:16 Heparin Sodium (Porcine) (Heparin -) 5,000 unit SQ BID [facility] Last Admin: 03/02/18 10:09 Dose: 5,000 unit Fluconazole (Diflucan 200 Mg/Ns Premixed Ivpb -) 100 mls @ 100 mls/hr IVPB DAILY [facility] Last Admin: 03/02/18 12:02 Dose: 100 mls/hr Piperacillin Sod/Tazobactam (Sod 3.375 gm/ Dextrose) 50 mls @ 100 mls/hr IVPB Q8H-IV JERED; Protocol Last Admin: 03/02/18 10:10 Dose: 100 mls/hr Levothyroxine Sodium (Synthroid -) 112 mcg PO DAILY@0700 [facility] Last Admin: 03/02/18 10:08 Dose: 112 mcg Mupirocin (Bactroban Ointment (For Decolonization) -) 1 applic NS BID [facility] Stop: 03/06/18 21:59 Last Admin: 03/02/18 10:30 Dose: 1 applic Ondansetron HCl (Zofran Injection) 8 mg IVPB Q8H PRN PRN Reason: NAUSEA Oxycodone HCl (Roxicodone -) 5 mg PO Q6H PRN PRN Reason: PAIN LEVEL 5-10 Last Admin: 03/02/18 00:47 Dose: 5 mg Pantoprazole Sodium (Protonix -) 40 mg PO DAILY [facility] Last Admin: 03/02/18 10:09 Dose: 40 mg Promethazine HCl (Phenergan Injection -) 12.5 mg IVPB Q6H PRN PRN Reason: NAUSEA-FOR RESCUE AFTER 15 MIN Simethicone (Mylicon -) 80 mg PO Q4H PRN PRN Reason: GAS - Objective Vital Signs: Vital Signs Temperature 98.1 F 03/02/18 09:00 Pulse Rate 94 H 03/02/18 11:50 Respiratory Rate 23 H 03/02/18 11:50 Blood Pressure 93/58 L 03/02/18 11:50 O2 Sat by Pulse Oximetry (%) 97 03/02/18 10:00 Constitutional: Yes: No Distress, Calm Cardiovascular: Yes: Regular Rate and Rhythm, Tachycardia Respiratory: Yes: Regular, On Nasal O2, Other Gastrointestinal: Yes: Normal Bowel Sounds, Soft Musculoskeletal: Yes: WNL Extremities: Yes: WNL Neurological: Yes: Alert Psychiatric: Yes: Alert, Oriented Labs: CBC, BMP 03/02/18 05:30 03/02/18 05:30 INR, PTT INR 1.33 (0.83-1.09) H 02/21/18 20:30 Assessment/Plan Problem List - Problems (1) Neoplasm of sigmoid colon Code(s): D49.0 - NEOPLASM OF UNSPECIFIED BEHAVIOR OF DIGESTIVE SYSTEM (2) Sigmoid thickening Code(s): K63.9 - DISEASE OF INTESTINE, UNSPECIFIED (3) Abdominal pain Code(s): R10.9 - UNSPECIFIED ABDOMINAL PAIN Qualifiers: Abdominal location: left lower quadrant Qualified Code(s): R10.32 - Left lower quadrant pain (4) Abnormal colonoscopy Code(s): R93.3 - ABNORMAL FINDINGS ON DX IMAGING OF PRT DIGESTIVE TRACT fever abd distension plan continue current mgmt abx monitor wbc rest as per the team monitor for resp failure rest as per icu cc 40 min
--- NOTE | 2018-03-02 15:49 | PN ---
Progress Note (short form) - Note Progress Note: patient still with abdominal drainage. nephrostomy is draining well will discuss with patient to attempt retrograde stenting as contrast is seen to reach the bladder on antegrade nephrostogram
[2018-03-02] MEDS ORDERED: ENOXAPARIN NA (PORCINE) 100 MG/1 ML DISP.SYRIN SQ SCH ×2 (16:00→22:00)
--- NOTE | 2018-03-02 16:20 | PN ---
Progress Note (short form) - Note Progress Note: Ultrasound called ICU about DVT with findings of L femoral DVT Dr. Ventura contacted, agrees to lovenox and ECHO, discussed IR guided tPA - is not currently an option considering multiple surgeries within last 1.5 weeks. Urology, Dr. Guerrero at bedside, agrees to lovenox, discussed OR tomorrow for ureteral intervention. IR contacted agree to IVC filter pending ECHO and DVT report. Lovenox started. IVF filter pending ECHO NPO now for urology/OR tomorrow. Patient stable, MAP 73, HR 80s, satting 100% on 50% ventimask.
[2018-03-02] MEDS ORDERED: ENOXAPARIN NA (PORCINE) 120 MG/0.8 ML DISP.SYRIN SQ ONE (16:30)
[2018-03-02] MEDS ORDERED: HEPARIN NA (PORCINE) 5,000 UNITS/ML 1ML VIAL IVPUSH PRN ×2 (17:45)
--- NOTE | 2018-03-02 18:39 | PN ---
Teaching Attending Note Name of Resident: Betty Cardoza ATTENDING PHYSICIAN STATEMENT I saw and evaluated the patient. I reviewed the resident's note and discussed the case with the resident. I agree with the resident's findings and plan as documented. SUBJECTIVE:asymptomatic. states he has occasional abdominal pain which is improved with pain medication. denies CP, SOB, fever,chills, N/V/C/D OBJECTIVE: Last Vital Signs Temp Pulse Resp BP Pulse Ox 98.1 F 92 H 18 93/58 L 97 03/02/18 09:00 03/02/18 17:24 03/02/18 17:24 03/02/18 11:50 03/02/18 10:00 Intake & Output 02/27/18 02/28/18 03/01/18 03/02/18 23:59 23:59 23:59 23:59 Intake Total 787 2500 6475 2400 Output Total 2950 1950 4200 1540 Balance -2163 550 2275 860 General NAD CV S1 S2 RRR no murmur/rub/gallop Lungs decrease breath sounds anteriorly. poor inspiraotry effort Abdomen soft NT/ND wound vac midline. +colostomy with brown liquid stool. nephrostomy drain with clear urine, Uroma pigtail with urine with white sediment Extremities 1+ pitting edema no calf tenderness ASSESSMENT AND PLAN: 57yo M with PMH hypothyroid presenetd to the ER with intermittent LLQ pain with recent colonoscopy with finding suspicious for malignancy. Pt underwent sigmoid colectomy on 02/14 which patient developed pneumoperitoneum and abdominal abscess and underwent ex-lap with abdominal washout and complete L hemicolectomy with Hartmans due to perforated diverticulum on 02/21. Pt went into AFib with RVR during the procedure which he self converted. Course complicated by L uretral injury iwth Ureteral extravsation seen with PCN tube was placed. EMBROIDERER HAND called on 03/01 where pt was found to have a uroma where bedside pigtail placed and patient was transferred to ICU. [facility] family 1. Stage 1 colon ca s/p resection and Hartmans- s/p surgeries as stated above with wound vac and colostomy in place. Further wound care and wound vac management per surgical team. remains NPO. pain control 2. Sepsis due to Urine leak-s/p pigtail placement bedside by IR draining clear urine. Urology to place stent. urology and ID on board 3. Abdominal abscess due to perforated diverticulum- s/p Hartmans 02/21. + polymicrobial (E.Coli, B.Fragilis, Yeast) on zosyn and fluconazole. repeat Cx sent yesterday. may need to broaden coverage. ID on board 4. +LLE DVT- concern for PE last night during [facility], unable to complete CTA due to unstable to go. doppler done showing DVT. startd on lovenox. will switch to hep ggt given tenuous hospital course and likelihood of requiring procedure. likely has PE as well. will need short- term anticoagluation given this is a provoked event. (prolonged hospital stay, surgery, Malignancy) 5. Tropinemia- demand due to sepsis and hypoxia. Trop peaked at 0.86 and trended down. no indication for further monitoring of troponins. echo pending 6. PAF- no repeat episodes of afib noted. last night was noted to be in NSR. was seen by cardio. as pt self-converted. no further workup at this time 7. pseudohypocalcemia- corrected Ca 8.8 8. MICU monitoring. spoke with daughter present at bedside. all questions answered. verbalized understanding and agreement [facility] plan. The care of this patient involved high complexity decision making to prevent further life threatening deterioration of the patient's condition and/or to evaluate & treat vital organ system(s) failure or risk of failure. 40 mins
--- NOTE | 2018-03-02 20:35 | PN ---
Progress Note, Physician Chief Complaint: abdominal pain and colon mass History of Present Illness: 57 yo male presenting to [facility] ER via private auto complaining of occasional lower left abdominal discomfort. stable post operatively after second laparotomy. Gas and air in the colostomy this morning, We were called to the bedside when the patinet was reporting more abdominal pain. He is noted to worseing distension despite left nephrostomy and mazariegos placement. Transferred to ICU after rapid response. Urinoma drained via ultrasound at the bedside. Since then he has been more stable. - Current Medication List Current Medications: Active Medications Acetaminophen (Tylenol -) 650 mg PO Q4H PRN PRN Reason: FEVER Last Admin: 03/02/18 00:47 Dose: 650 mg Amino Acids (Prosource No Carb Liquid Pkt) 30 ml PO BID@0800,1730 [facility] Last Admin: 03/02/18 16:55 Dose: 30 ml Benzocaine/Menthol (Cepacol Lozenge -) 1 each MM PRN PRN PRN Reason: SORE THROAT Chlorhexidine Gluconate (Hibiclens For Decolonization -) 1 applic TP HS [facility] Last Admin: 03/02/18 00:00 Dose: Not Given Diphenhydramine HCl (Benadryl Injection -) 12.5 mg IVPUSH ONCE PRN PRN Reason: FOR ITCHING Heparin Sodium (Porcine) (Heparin -) 5,000 unit IVPUSH PRN PRN PRN Reason: Heparin Heparin Sodium (Porcine) (Heparin -) 1,000 unit IVPUSH PRN PRN PRN Reason: Heparin Fluconazole (Diflucan 200 Mg/Ns Premixed Ivpb -) 100 mls @ 100 mls/hr IVPB DAILY [facility] Last Admin: 03/02/18 12:02 Dose: 100 mls/hr Piperacillin Sod/Tazobactam (Sod 3.375 gm/ Dextrose) 50 mls @ 100 mls/hr IVPB Q8H-IV JERED; Protocol Last Admin: 03/02/18 17:43 Dose: 100 mls/hr Heparin Sodium (Porcine) 25, (000 unit/ Sodium Chloride) 500 mls @ 20 mls/hr IV TITR JERED; Protocol Levothyroxine Sodium (Synthroid -) 112 mcg PO DAILY@0700 [facility] Last Admin: 03/02/18 10:08 Dose: 112 mcg Mupirocin (Bactroban Ointment (For Decolonization) -) 1 applic NS BID [facility] Stop: 03/06/18 21:59 Last Admin: 03/02/18 10:30 Dose: 1 applic Ondansetron HCl (Zofran Injection) 8 mg IVPB Q8H PRN PRN Reason: NAUSEA Oxycodone HCl (Roxicodone -) 5 mg PO Q6H PRN PRN Reason: PAIN LEVEL 5-10 Last Admin: 03/02/18 00:47 Dose: 5 mg Pantoprazole Sodium (Protonix -) 40 mg PO DAILY [facility] Last Admin: 03/02/18 10:09 Dose: 40 mg Promethazine HCl (Phenergan Injection -) 12.5 mg IVPB Q6H PRN PRN Reason: NAUSEA-FOR RESCUE AFTER 15 MIN Simethicone (Mylicon -) 80 mg PO Q4H PRN PRN Reason: GAS - Objective Vital Signs: Vital Signs Temperature 98.1 F 03/02/18 09:00 Pulse Rate 92 H 03/02/18 17:24 Respiratory Rate 18 03/02/18 17:24 Blood Pressure 93/58 L 03/02/18 11:50 O2 Sat by Pulse Oximetry (%) 97 03/02/18 10:00 Vital Signs Period Temp Pulse Resp BP Sys/Cavanaugh Pulse Ox Last 24 Hr 97.6 F-98.9 F 85-104 18-38 92-99/58-78 97-98 Intake & Output 03/02/18 03/02/18 03/02/18 07:59 15:59 23:59 Intake Total 925 1475 200 Output Total 650 1090 650 Balance 275 385 -450 Intake: IV 875 375 LACTATED RINGERS SOLUTION 875 375 1,000 ml In 1,000 ml @ 125 mls/hr IV ASDIR [facility] Rx#:[id number] IVPB 50 100 50 Oral 1000 150 Output: Drainage 100 400 300 Left Lateral Abdomen 100 400 300 Urine 550 690 350 Mazariegos 400 400 Left Nephrostomy 150 290 350 Other: Voiding Method Indwelling Catheter Constitutional: Yes: Well Nourished, No Distress, Calm Eyes: Yes: Conjunctiva Clear, EOM Intact HENT: Yes: Atraumatic, Normocephalic Neck: Yes: Supple, Trachea Midline Cardiovascular: Yes: Regular Rate and Rhythm, S1, S2 Respiratory: Yes: Regular, CTA Bilaterally Gastrointestinal: Yes: Normal Bowel Sounds, Soft, Abdomen, Obese, Tenderness. No: Distention, Tenderness, Epigastrium Genitourinary: Yes: Mazariegos Present. No: CVA Tenderness - Left, CVA Tenderness - Right Extremities: Yes: Calf Tenderness. No: Cool, Cyanosis Edema: Yes Edema: LUE: Trace, RUE: Trace, LLE: Trace, RLE: Trace Peripheral Pulses WNL: Yes Peripheral Pulses: Left Radial: 2+, Right Radial: 2+, Left Doralis Pedis: 2+, Right Dorsalis Pedis: 2+ Neurological: Yes: Alert, Oriented Psychiatric: Yes: Alert, Oriented Labs: CBC, BMP 03/02/18 05:30 03/02/18 18:05 INR, PTT INR 1.33 (0.83-1.09) H 02/21/18 20:30 Problem List - Problems (1) Neoplasm of sigmoid colon Assessment/Plan: POD#15 s/p sigmoid colectomy and primary anastomosis (due to sigmoid colon mass ) POD#8 s/p completion left colectomy and amado's (due to perforated diverticulum distal to anatomosis), gas and liquid stool now in the colostomy, Leukocystosis >15 (>85%N). Noted on imaging to have left distal 1/3rd ureteral injury likely attributable to reoperation for a perforated diverticulum. Now temporized with a left nephrostomy and mazariegos. Possible cystoscopy and retrograde stent will be attempted. LE duplex showed acute DVT thus it is believed he may have had a PE, despite SCD and early ambulation. Agree with antiplatelet therapy, avoid throbolysis. ICu managemnt clear liquid diet and advance as tolerated and appropriate based on planned procedure IVF hydration replete electrolytes - calcium antiemetic OOB and ambulate encourage IS family discussion is in order, with daughter will follow This patient is critically ill. Time spent reviewing chart, examining patient, talking with providers and/or family and documentation is 35 minutes. Code(s): D49.0 - NEOPLASM OF UNSPECIFIED BEHAVIOR OF DIGESTIVE SYSTEM (2) Sigmoid thickening Code(s): K63.9 - DISEASE OF INTESTINE, UNSPECIFIED (3) Abdominal pain Code(s): R10.9 - UNSPECIFIED ABDOMINAL PAIN Qualifiers: Abdominal location: left lower quadrant Qualified Code(s): R10.32 - Left lower quadrant pain (4) Abnormal colonoscopy Code(s): R93.3 - ABNORMAL FINDINGS ON DX IMAGING OF PRT DIGESTIVE TRACT
[2018-03-02] MEDS: CHLORHEXIDINE GLUCONATE 4% CLEANSER FOR DECOLONIZATION TP SCH ×2 (22:00)
[2018-03-03] MEDS: PIPERACILLIN/TAZOB 3.375 GM 3.375 GM in DEXTROSE 5%-WATER - 50 ML IVPB SCH ×3 (02:10→17:13)
[2018-03-03] MEDS ORDERED: ALBUTEROL SO4 8 GM HFA INHALER IH ONE (02:29)
[2018-03-03] MEDS ORDERED: ALBUTEROL SO4 0.083% IH SOL 2.5 MG/3 ML VIAL.NEB. NEB ONE (02:29)
[2018-03-03] MEDS ORDERED: PT OWN MED DRAWER 7, Y5N ONE ×4 (03:16→09:46)
[2018-03-03] MEDS ORDERED: HEPARIN - 25,000 UNIT in SODIUM CHLORIDE 495 ML IV SCH (04:00)
[2018-03-03] MEDS ORDERED: HEPARIN NA (PORCINE) 5,000 UNITS/ML 1ML VIAL IVPUSH PRN ×2 (04:00)
[2018-03-03] MEDS ORDERED: ENOXAPARIN NA (PORCINE) 120 MG/0.8 ML DISP.SYRIN SQ SCH (04:00)
[2018-03-03] MEDS: HEPARIN SOD,PORK IN 0.45% NACL 25,000 UNITS/500 ML INFUS.BAG IVPB SCH (04:41)
[2018-03-03 06:35] LABS: BASO % 0.6 % (0-2.0); EOS % 1.6 % (0-4.5); HEMATOCRIT 26.2 % (35.4-49); HEMOGLOBIN 8.4 GM/dL (11.7-16.9); LYMPH % 13.1 % (8-40); MCH 26.8 pg (25.7-33.7); MCHC 32.1 g/dl (32.0-35.9); MEAN CELL VOLUME 83.5 fl (80-96); MEAN PLT VOLUME 6.8 fl (7.5-11.1); MONO % 6.3 % (3.8-10.2); NEUT % 78.4 % (42.8-82.8); PLATELET COUNT 455 K/MM3 (134-434); RBC 3.14 M/mm3 (4.00-5.60); RDW 20.3 % (11.9-15.9); WHITE BLOOD COUNT 7.6 K/mm3 (4.0-10.0)
[2018-03-03] MEDS: LEVOTHYROXINE NA 112 MCG TABLET (FP) PO SCH (06:45)
[2018-03-03 07:05] LABS: ARTERIAL BLD GAS O2 SATURATION 94.5 % (90-98.9); ARTERIAL BLOOD GAS BASE EXCESS 2.3 meq/l (-2-2); ARTERIAL BLOOD GAS PCO2 37.8 mmHg (35-45); ARTERIAL BLOOD GAS PO2 76.7 mmHg (80-100); ARTERIAL BLOOD GAS pH 7.45 (7.35-7.45)
[2018-03-03 07:29] LABS: ALLENS TEST POSITIVE
[2018-03-03 07:36] LABS: ALBUMIN 1.4 g/dl (3.4-5.0); ALK PHOS 133 U/L (45-117); ANION GAP 8 MMOL/L (8-16); BILIRUBIN,TOTAL 0.4 mg/dL (0.2-1); BLOOD UREA NITROGEN 7 mg/dL (7-18); CHLORIDE 107 mmol/L (98-107); CO2 26 mmol/L (21-32); CREATININE 0.4 mg/dL (0.55-1.3); GLUCOSE,RANDOM 96 mg/dL (74-106); MAGNESIUM 2.3 mg/dL (1.8-2.4); PHOSPHOROUS 2.7 mg/dL (2.5-4.9); POTASSIUM 4.1 mmol/L (3.5-5.1); SGOT/AST 16 U/L (15-37); SGPT/ALT 27 U/L (13-61); SODIUM 141 mmol/L (136-145); TOT PROT 4.8 g/dl (6.4-8.2)
[2018-03-03 07:49] LABS: CALCIUM 6.8 mg/dL (8.5-10.1)
--- NOTE | 2018-03-03 09:24 | PN ---
Progress Note (short form) - Note Progress Note: plan for cystoscopy and attempted retrograde stent placement, Anesthesia evaluated the patient and noted a new infiltrate and recommends postpoining the procedure. will reschedule when lower risk for anesthesia. PCN and mazariegos are draining
[2018-03-03] MEDS ORDERED: PIPERACILLIN/TAZOBACTAM 3.375 GM VIAL IVPB ONE ×2 (09:47→17:01)
[2018-03-03] MEDS ORDERED: DEXTROSE 5%-WATER - 50 ML IVPB ONE ×2 (09:47→17:01)
[2018-03-03] MEDS: AMINO ACIDS/PROTEIN HYDROLYS 30 ML LIQUID.PKT PO SCH ×2 (09:54→17:13)
[2018-03-03] MEDS: PANTOPRAZOLE 40 MG TABLET (FP) PO SCH (09:55)
[2018-03-03] MEDS: FLUCONAZOLE 200 MG/NS 100 ML IVPB SCH (09:55)
[2018-03-03] MEDS: MUPIROCIN 2% TOPICAL OINTMENT FOR DECOLONIZATION NS SCH ×2 (09:55→21:26)
--- NOTE | 2018-03-03 13:16 | PN ---
Teaching Attending Note Name of Resident: Acosta Watt ATTENDING PHYSICIAN STATEMENT I saw and evaluated the patient. I reviewed the resident's note and discussed the case with the resident. I agree with the resident's findings and plan as documented. SUBJECTIVE: Patient seen and examined in the ICU. Awake and alert on VM O2. Mildly tachypneic at rest. Denies CP or SOB. OR canceled as there was a questionable new infiltrate. OBJECTIVE: Intake & Output 02/28/18 03/01/18 03/02/18 03/03/18 23:59 23:59 23:59 23:59 Intake Total 2500 6475 2600 850 Output Total 1950 4200 3840 2100 Balance 550 2275 -1240 -1250 Weight 197 lb Last Vital Signs Temp Pulse Resp BP Pulse Ox 98 F 80 18 102/74 92 L 03/03/18 08:00 03/03/18 12:00 03/03/18 12:00 03/03/18 12:00 03/03/18 09:00 Active Medications Acetaminophen (Tylenol -) 650 mg PO Q4H PRN PRN Reason: FEVER Last Admin: 03/02/18 00:47 Dose: 650 mg Amino Acids (Prosource No Carb Liquid Pkt) 30 ml PO BID@0800,1730 [facility] Last Admin: 03/03/18 09:54 Dose: Not Given Benzocaine/Menthol (Cepacol Lozenge -) 1 each MM PRN PRN PRN Reason: SORE THROAT Chlorhexidine Gluconate (Hibiclens For Decolonization -) 1 applic TP HS [facility] Last Admin: 03/02/18 22:00 Dose: 1 applic Diphenhydramine HCl (Benadryl Injection -) 12.5 mg IVPUSH ONCE PRN PRN Reason: FOR ITCHING Heparin Sodium (Porcine) (Heparin -) 5,000 unit IVPUSH PRN PRN PRN Reason: Heparin Heparin Sodium (Porcine) (Heparin -) 1,000 unit IVPUSH PRN PRN PRN Reason: Heparin Fluconazole (Diflucan 200 Mg/Ns Premixed Ivpb -) 100 mls @ 100 mls/hr IVPB DAILY [facility] Last Admin: 03/03/18 09:55 Dose: 100 mls/hr Piperacillin Sod/Tazobactam (Sod 3.375 gm/ Dextrose) 50 mls @ 100 mls/hr IVPB Q8H-IV JERED; Protocol Last Admin: 03/03/18 09:55 Dose: 100 mls/hr HEPARIN SOD,PORK IN 0.45% NACL (Heparin-1/2ns 25,000 Units/500) 25,000 units in 500 mls @ 20 mls/hr IVPB TITR [facility]; Protocol Last Admin: 03/03/18 04:41 Dose: 1,000 unit/hr, 20 mls/hr Levothyroxine Sodium (Synthroid -) 112 mcg PO DAILY@0700 [facility] Last Admin: 03/03/18 06:45 Dose: 112 mcg Mupirocin (Bactroban Ointment (For Decolonization) -) 1 applic NS BID [facility] Stop: 03/06/18 21:59 Last Admin: 03/03/18 09:55 Dose: 1 applic Ondansetron HCl (Zofran Injection) 8 mg IVPB Q8H PRN PRN Reason: NAUSEA Oxycodone HCl (Roxicodone -) 5 mg PO Q6H PRN PRN Reason: PAIN LEVEL 5-10 Last Admin: 03/02/18 00:47 Dose: 5 mg Pantoprazole Sodium (Protonix -) 40 mg PO DAILY [facility] Last Admin: 03/03/18 09:55 Dose: 40 mg Promethazine HCl (Phenergan Injection -) 12.5 mg IVPB Q6H PRN PRN Reason: NAUSEA-FOR RESCUE AFTER 15 MIN Simethicone (Mylicon -) 80 mg PO Q4H PRN PRN Reason: GAS Gen: tachypneic at rest on ventimask Heart: RRR Lung: basilar rales Abd: soft, nontender, +ostomy with air in bag, Left nephrostomy, nephrostomy drain intact Ext: + edema Laboratory Results - last 24 hr 03/02/18 03/02/18 03/03/18 17:30 18:05 05:30 WBC 7.6 RBC 3.14 L Hgb 8.4 L Hct 26.2 L MCV 83.5 MCH 26.8 MCHC 32.1 RDW 20.3 H Plt Count 455 H MPV 6.8 L Absolute Neuts (auto) 5.9 Neutrophils % 78.4 Lymphocytes % 13.1 D Monocytes % 6.3 Eosinophils % 1.6 D Basophils % 0.6 Nucleated RBC % 0 Anticoagulation Therapy Puncture Site ABG pH ABG pCO2 at Pt Temp ABG pO2 at Pt Temp ABG HCO3 ABG O2 Sat (Measured) ABG O2 Content ABG Base Excess Christopher Test O2 Delivery Device Oxygen Flow Rate Vent Mode Vent Rate Mechanical Rate Pressure Support Vent Sodium Potassium Chloride Carbon Dioxide Anion Gap BUN Creatinine 0.4 L Creat Clearance w eGFR Random Glucose Calcium Phosphorus Magnesium Total Bilirubin AST ALT Alkaline Phosphatase Total Protein Albumin Urine Creatinine 51.0 H 03/03/18 03/03/18 05:30 06:45 WBC RBC Hgb Hct MCV MCH MCHC RDW Plt Count MPV Absolute Neuts (auto) Neutrophils % Lymphocytes % Monocytes % Eosinophils % Basophils % Nucleated RBC % Anticoagulation Therapy No Result Required. Puncture Site Right radial ABG pH 7.45 ABG pCO2 at Pt Temp 37.8 ABG pO2 at Pt Temp 76.7 L D ABG HCO3 25.9 ABG O2 Sat (Measured) 94.5 ABG O2 Content 12.1 L ABG Base Excess 2.3 H Christopher Test Positive O2 Delivery Device Venti mask Oxygen Flow Rate 50% Vent Mode No Result Required. Vent Rate No Result Required. Mechanical Rate No Result Required. Pressure Support Vent No Result Required. Sodium 141 Potassium 4.1 Chloride 107 Carbon Dioxide 26 Anion Gap 8 BUN 7 Creatinine 0.4 L Creat Clearance w eGFR > 60 Random Glucose 96 Calcium 6.8 L* Phosphorus 2.7 Magnesium 2.3 Total Bilirubin 0.4 AST 16 ALT 27 Alkaline Phosphatase 133 H Total Protein 4.8 L Albumin 1.4 L Urine Creatinine ASSESSMENT AND PLAN: Colon CA Newly diagnosed DVT: (?) PE s/p Sigmoid Colectomy 02/14 Post op Fecal Peritonitis/Perforated Diverticulum s/p ex-lap/abdominal washout/Left Colectomy/End Colostomy Lone vs Paroxysmal Atrial Fibrillation Acute Hypoxic Respiratory Failure Volume Overload Left Ureteral Leak s/p Nephrostomy placement Intra-abdominal Abscess s/p IR drainage Septic Shock +Troponins likely Demand Ischemia Hypothyroidism - STAT ECHO - IV Heparin - ABX - f/u pending cultures - monitor urine output, creatinine - pain control - incentive spirometry - O2 to keep Spo2 >90% - DVT prophylaxis - continue ICU monitoring due to tenuous status Dr Rojo Critical care time spent in reviewing chart, evaluating patient and formulating plan 35 min
--- NOTE | 2018-03-03 13:29 | PN ---
Physical Exam: SUBJECTIVE: Patient seen and examined at bedside- no acute events overnight. patient is not having any pain; his CVPs were 10-12 and he has been afebrile. He was started on a heparin drip last night . OBJECTIVE: Vital Signs Period Temp Pulse Resp BP Sys/Cavanaugh Pulse Ox Last 24 Hr 98 F-98.9 F 72-96 18-22 91-108/63-74 92-97 GENERAL: The patient is awake, alert, on venitmask EYES: no scleral icterus NECK: no JVD. LUNGS:rhonchi B/L. HEART: Regular rate and rhythm, S1, S2 without murmur, rub or gallop. ABDOMEN: Soft, nontender, nondistended, +urostomy bag and nephrostomy EXTREMITIES: 2+ pulses, warm, well-perfused, + edema. SKIN: Warm, dry, normal turgor, no rashes or lesions noted Laboratory Results - last 24 hr 03/02/18 03/02/18 03/03/18 17:30 18:05 05:30 WBC 7.6 RBC 3.14 L Hgb 8.4 L Hct 26.2 L MCV 83.5 MCH 26.8 MCHC 32.1 RDW 20.3 H Plt Count 455 H MPV 6.8 L Absolute Neuts (auto) 5.9 Neutrophils % 78.4 Lymphocytes % 13.1 D Monocytes % 6.3 Eosinophils % 1.6 D Basophils % 0.6 Nucleated RBC % 0 Anticoagulation Therapy Puncture Site ABG pH ABG pCO2 at Pt Temp ABG pO2 at Pt Temp ABG HCO3 ABG O2 Sat (Measured) ABG O2 Content ABG Base Excess Christopher Test O2 Delivery Device Oxygen Flow Rate Vent Mode Vent Rate Mechanical Rate Pressure Support Vent Sodium Potassium Chloride Carbon Dioxide Anion Gap BUN Creatinine 0.4 L Creat Clearance w eGFR Random Glucose Calcium Phosphorus Magnesium Total Bilirubin AST ALT Alkaline Phosphatase Total Protein Albumin Urine Creatinine 51.0 H 03/03/18 03/03/18 05:30 06:45 WBC RBC Hgb Hct MCV MCH MCHC RDW Plt Count MPV Absolute Neuts (auto) Neutrophils % Lymphocytes % Monocytes % Eosinophils % Basophils % Nucleated RBC % Anticoagulation Therapy No Result Required. Puncture Site Right radial ABG pH 7.45 ABG pCO2 at Pt Temp 37.8 ABG pO2 at Pt Temp 76.7 L D ABG HCO3 25.9 ABG O2 Sat (Measured) 94.5 ABG O2 Content 12.1 L ABG Base Excess 2.3 H Christopher Test Positive O2 Delivery Device Venti mask Oxygen Flow Rate 50% Vent Mode No Result Required. Vent Rate No Result Required. Mechanical Rate No Result Required. Pressure Support Vent No Result Required. Sodium 141 Potassium 4.1 Chloride 107 Carbon Dioxide 26 Anion Gap 8 BUN 7 Creatinine 0.4 L Creat Clearance w eGFR > 60 Random Glucose 96 Calcium 6.8 L* Phosphorus 2.7 Magnesium 2.3 Total Bilirubin 0.4 AST 16 ALT 27 Alkaline Phosphatase 133 H Total Protein 4.8 L Albumin 1.4 L Urine Creatinine Active Medications Generic Name Dose Route Start Last Admin Trade Name Freq PRN Reason Stop Dose Admin Acetaminophen 650 mg 03/01/18 20:35 03/02/18 00:47 Tylenol - PO 650 mg Q4H PRN Administration FEVER Amino Acids 30 ml 03/02/18 08:00 03/03/18 09:54 Prosource No Carb Liquid Pkt PO Not Given BID@0800,1730 JERED Benzocaine/Menthol 1 each 03/01/18 20:35 Cepacol Lozenge - MM PRN PRN SORE THROAT Chlorhexidine Gluconate 1 applic 03/01/18 22:00 03/02/18 22:00 Hibiclens For Decolonization - TP 1 applic HS JERED Administration Diphenhydramine HCl 12.5 mg 03/01/18 20:35 Benadryl Injection - IVPUSH ONCE PRN FOR ITCHING Heparin Sodium (Porcine) 5,000 unit 03/03/18 04:00 Heparin - IVPUSH PRN PRN Heparin Heparin Sodium (Porcine) 1,000 unit 03/03/18 04:00 Heparin - IVPUSH PRN PRN Heparin Fluconazole 100 mls @ 100 mls/hr 03/02/18 10:00 03/03/18 09:55 Diflucan 200 Mg/Ns Premixed Ivpb - IVPB 100 mls/hr DAILY JERED Administration Piperacillin Sod/Tazobactam 50 mls @ 100 mls/hr 03/02/18 02:00 03/03/18 09:55 Sod 3.375 gm/ Dextrose IVPB 100 mls/hr Q8H-IV JERED Administration Protocol HEPARIN SOD,PORK IN 0.45% NACL 25,000 units in 500 mls @ 20 mls/hr 03/03/18 04 :00 03/03/18 04:41 Heparin-1/2ns 25,000 Units/500 IVPB 1,000 unit/hr TITR JERED 20 mls/hr Administration Protocol 1,000 UNIT/HR Levothyroxine Sodium 112 mcg 03/02/18 07:00 03/03/18 06:45 Synthroid - PO 112 mcg DAILY@0700 J[facility]ED Administration Mupirocin 1 applic 03/01/18 22:00 03/03/18 09:55 Bactroban Ointment (For Decolonization) - NS 03/06/18 21:59 1 applic BID JERED Administration Ondansetron HCl 8 mg 03/01/18 20:35 Zofran Injection IVPB Q8H PRN NAUSEA Oxycodone HCl 5 mg 03/01/18 20:35 03/02/18 00:47 Roxicodone - PO 5 mg Q6H PRN Administration PAIN LEVEL 5-10 Pantoprazole Sodium 40 mg 03/02/18 10:00 03/03/18 09:55 Protonix - PO 40 mg DAILY JERED Administration Promethazine HCl 12.5 mg 03/01/18 20:35 Phenergan Injection - IVPB Q6H PRN NAUSEA-FOR RESCUE AFTER 15 MIN Simethicone 80 mg 03/01/18 20:35 Mylicon - PO Q4H PRN GAS ASSESSMENT/PLAN: 57 year old man with history of hypothyroidism, Afib w/ RVR stage 1 colon cancer with Sue procedure performed 02/22 (Dr. Ventura). Patient with urine leak from abdominal site (02/26) found to have L sided ureteral extravasation with L nephrostomy tube placement (02/28). PLAN #Septic Shock possibly 2/2 urine leak -patient had central line placed yesterday upon transfer to ICU -Maps were in 60's-70's overnight -CX pending -current abx as per ID -repeat CXR in AM -monitor hemodynamics -patient found to have RV strain on echo- suggestivce of PE; currently on heparin drip - ? if needs thrombectomy #GI Abcess with urine leak and leukocytosis - Blood cultures (02/17) - without growth - Abscess culture (02/20) - lactose fermenting gram neg bacilli, coag pos staph , yeast - Per ID: Zosyn, Diflucan (for yeast growth) - Tylenol PRN for fever #Ureteral Extravasation with nephrostomy tube placementt. - L nephrostomy tube placed 02/28 - Lentz - monitor urine output -ab/pelvis CT pending -pateint going for repeat stent surgery when more stable #Colon Ca s/p Harrtmanns procedure -f/u pathology -f/u oncology recs #Hypothyroidism -TSH within normal limits c/w home dose of levothyroxine F/E/N - NPO - 1L LR @ 75ml/hr - 2L NS ordered for septic shock GI ppx - Protonix 40mg daily DVT ppx - heparin drip . Problem List - Problems (1) Abdominal pain Code(s): R10.9 - UNSPECIFIED ABDOMINAL PAIN Qualifiers: Qualified Code(s): R10.32 - Left lower quadrant pain (2) Abnormal colonoscopy Code(s): R93.3 - ABNORMAL FINDINGS ON DX IMAGING OF PRT DIGESTIVE TRACT (3) Afib Code(s): I48.91 - UNSPECIFIED ATRIAL FIBRILLATION (4) Left ureteral injury Code(s): S37.10XA - UNSPECIFIED INJURY OF URETER, INITIAL ENCOUNTER Visit type - Emergency Visit Emergency Visit: Yes ED Registration Date: 02/13/18 Care time: The patient presented to the Emergency Department on the above date and was hospitalized for further evaluation of their emergent condition. - New Patient This patient is new to me today: No - Critical Care Critical Care patient: No
--- NOTE | 2018-03-03 13:53 | PN ---
Progress Note, Physician History of Present Illness: patient stable no complaints on ventimask family in room - Current Medication List Current Medications: Active Medications Acetaminophen (Tylenol -) 650 mg PO Q4H PRN PRN Reason: FEVER Last Admin: 03/02/18 00:47 Dose: 650 mg Amino Acids (Prosource No Carb Liquid Pkt) 30 ml PO BID@0800,1730 [facility] Last Admin: 03/03/18 09:54 Dose: Not Given Benzocaine/Menthol (Cepacol Lozenge -) 1 each MM PRN PRN PRN Reason: SORE THROAT Chlorhexidine Gluconate (Hibiclens For Decolonization -) 1 applic TP HS [facility] Last Admin: 03/02/18 22:00 Dose: 1 applic Diphenhydramine HCl (Benadryl Injection -) 12.5 mg IVPUSH ONCE PRN PRN Reason: FOR ITCHING Heparin Sodium (Porcine) (Heparin -) 5,000 unit IVPUSH PRN PRN PRN Reason: Heparin Heparin Sodium (Porcine) (Heparin -) 1,000 unit IVPUSH PRN PRN PRN Reason: Heparin Fluconazole (Diflucan 200 Mg/Ns Premixed Ivpb -) 100 mls @ 100 mls/hr IVPB DAILY [facility] Last Admin: 03/03/18 09:55 Dose: 100 mls/hr Piperacillin Sod/Tazobactam (Sod 3.375 gm/ Dextrose) 50 mls @ 100 mls/hr IVPB Q8H-IV [facility]; Protocol Last Admin: 03/03/18 09:55 Dose: 100 mls/hr HEPARIN SOD,PORK IN 0.45% NACL (Heparin-1/2ns 25,000 Units/500) 25,000 units in 500 mls @ 20 mls/hr IVPB TITR [facility]; Protocol Last Admin: 03/03/18 04:41 Dose: 1,000 unit/hr, 20 mls/hr Levothyroxine Sodium (Synthroid -) 112 mcg PO DAILY@0700 [facility] Last Admin: 03/03/18 06:45 Dose: 112 mcg Mupirocin (Bactroban Ointment (For Decolonization) -) 1 applic NS BID [facility] Stop: 03/06/18 21:59 Last Admin: 03/03/18 09:55 Dose: 1 applic Ondansetron HCl (Zofran Injection) 8 mg IVPB Q8H PRN PRN Reason: NAUSEA Oxycodone HCl (Roxicodone -) 5 mg PO Q6H PRN PRN Reason: PAIN LEVEL 5-10 Last Admin: 03/02/18 00:47 Dose: 5 mg Pantoprazole Sodium (Protonix -) 40 mg PO DAILY [facility] Last Admin: 03/03/18 09:55 Dose: 40 mg Promethazine HCl (Phenergan Injection -) 12.5 mg IVPB Q6H PRN PRN Reason: NAUSEA-FOR RESCUE AFTER 15 MIN Simethicone (Mylicon -) 80 mg PO Q4H PRN PRN Reason: GAS - Objective Vital Signs: Vital Signs Temperature 98 F 03/03/18 08:00 Pulse Rate 80 03/03/18 12:00 Respiratory Rate 18 03/03/18 12:00 Blood Pressure 102/74 03/03/18 12:00 O2 Sat by Pulse Oximetry (%) 92 L 03/03/18 09:00 Constitutional: Yes: No Distress, Calm Cardiovascular: Yes: Regular Rate and Rhythm, S1 Respiratory: Yes: Regular, On Venti-Mask, Other Gastrointestinal: Yes: Normal Bowel Sounds, Soft Genitourinary: Yes: Other (ext nephrostomy tube in place) Musculoskeletal: Yes: WNL Extremities: Yes: WNL Neurological: Yes: Alert, Oriented Psychiatric: Yes: Alert, Oriented Labs: CBC, BMP 03/03/18 05:30 03/03/18 05:30 INR, PTT INR 1.33 (0.83-1.09) H 02/21/18 20:30 - ....Imaging Chest X-ray: Report Reviewed, Image Reviewed Assessment/Plan Problem List - Problems (1) Neoplasm of sigmoid colon Code(s): D49.0 - NEOPLASM OF UNSPECIFIED BEHAVIOR OF DIGESTIVE SYSTEM (2) Sigmoid thickening Code(s): K63.9 - DISEASE OF INTESTINE, UNSPECIFIED (3) Abdominal pain Code(s): R10.9 - UNSPECIFIED ABDOMINAL PAIN Qualifiers: Abdominal location: left lower quadrant Qualified Code(s): R10.32 - Left lower quadrant pain (4) Abnormal colonoscopy Code(s): R93.3 - ABNORMAL FINDINGS ON DX IMAGING OF PRT DIGESTIVE TRACT fever abd distension DVT ? pe ureteral tear left s/p ext nephrostomy plan continue current mgmt abx monitor wbc rest as per the team monitor for resp failure rest as per icu await for ureteral stent cc 38 min
--- NOTE | 2018-03-03 14:45 | PN ---
Physical Exam: SUBJECTIVE: Patient seen and examined in the ICU. on VM O2. Denies CP or SOB. OR canceled as there was a questionable new infiltrate. OBJECTIVE: Vital Signs Period Temp Pulse Resp BP Sys/Cavanaugh Pulse Ox Last 24 Hr 98 F-98.9 F 72-96 18-22 91-108/63-74 92-97 GENERAL: AOX3 NAD, on ventimask HEAD: NCAT EYES: PERRLA, extraocular movements NECK: Trachea midline, full range of motion LUNGS: Slightly rhonchous breath sounds bilaterally, no wheezes, no crackles, no accessory muscle use. HEART: RRR, S1, S2 without murmur, rub or gallop. ABDOMEN: abdominal wound dressings, clean dry. +colostomy bag with air in bag, Left nephrostomy, nephrostomy drain intact EXTREMITIES: 2+ pulses, warm, well-perfused, no edema. NEUROLOGICAL: Cranial nerves II through XII grossly intact. PSYCH: Normal mood, normal affect. SKIN: Warm, dry, normal turgor, no rashes or lesions noted Laboratory Results - last 24 hr 03/01/18 03/02/18 03/02/18 18:00 17:30 18:05 WBC RBC Hgb Hct MCV MCH MCHC RDW Plt Count MPV Absolute Neuts (auto) Neutrophils % Lymphocytes % Monocytes % Eosinophils % Basophils % Nucleated RBC % Anticoagulation Therapy Puncture Site ABG pH ABG pCO2 at Pt Temp ABG pO2 at Pt Temp ABG HCO3 ABG O2 Sat (Measured) ABG O2 Content ABG Base Excess Christopher Test O2 Delivery Device Oxygen Flow Rate Vent Mode Vent Rate Mechanical Rate Pressure Support Vent Sodium Potassium Chloride Carbon Dioxide Anion Gap BUN Creatinine 0.4 L Creat Clearance w eGFR Random Glucose Calcium Phosphorus Magnesium Total Bilirubin AST ALT Alkaline Phosphatase Total Protein Albumin Urine Creatinine 51.0 H Fluid Total Protein 0.9 Body Fluid LDH Source 890 Fluid Amylase 213 03/03/18 03/03/18 03/03/18 05:30 05:30 06:45 WBC 7.6 RBC 3.14 L Hgb 8.4 L Hct 26.2 L MCV 83.5 MCH 26.8 MCHC 32.1 RDW 20.3 H Plt Count 455 H MPV 6.8 L Absolute Neuts (auto) 5.9 Neutrophils % 78.4 Lymphocytes % 13.1 D Monocytes % 6.3 Eosinophils % 1.6 D Basophils % 0.6 Nucleated RBC % 0 Anticoagulation Therapy No Result Required. Puncture Site Right radial ABG pH 7.45 ABG pCO2 at Pt Temp 37.8 ABG pO2 at Pt Temp 76.7 L D ABG HCO3 25.9 ABG O2 Sat (Measured) 94.5 ABG O2 Content 12.1 L ABG Base Excess 2.3 H Christopher Test Positive O2 Delivery Device Venti mask Oxygen Flow Rate 50% Vent Mode No Result Required. Vent Rate No Result Required. Mechanical Rate No Result Required. Pressure Support Vent No Result Required. Sodium 141 Potassium 4.1 Chloride 107 Carbon Dioxide 26 Anion Gap 8 BUN 7 Creatinine 0.4 L Creat Clearance w eGFR > 60 Random Glucose 96 Calcium 6.8 L* Phosphorus 2.7 Magnesium 2.3 Total Bilirubin 0.4 AST 16 ALT 27 Alkaline Phosphatase 133 H Total Protein 4.8 L Albumin 1.4 L Urine Creatinine Fluid Total Protein Body Fluid LDH Source Fluid Amylase Active Medications Generic Name Dose Route Start Last Admin Trade Name Freq PRN Reason Stop Dose Admin Acetaminophen 650 mg 03/01/18 20:35 03/02/18 00:47 Tylenol - PO 650 mg Q4H PRN Administration FEVER Amino Acids 30 ml 03/02/18 08:00 03/03/18 09:54 Prosource No Carb Liquid Pkt PO Not Given BID@0800,1730 [facility] Benzocaine/Menthol 1 each 03/01/18 20:35 Cepacol Lozenge - MM PRN PRN SORE THROAT Chlorhexidine Gluconate 1 applic 03/01/18 22:00 03/02/18 22:00 Hibiclens For Decolonization - TP 1 applic HS [facility] Administration Diphenhydramine HCl 12.5 mg 03/01/18 20:35 Benadryl Injection - IVPUSH ONCE PRN FOR ITCHING Heparin Sodium (Porcine) 5,000 unit 03/03/18 04:00 Heparin - IVPUSH PRN PRN Heparin Heparin Sodium (Porcine) 1,000 unit 03/03/18 04:00 Heparin - IVPUSH PRN PRN Heparin Fluconazole 100 mls @ 100 mls/hr 03/02/18 10:00 03/03/18 09:55 Diflucan 200 Mg/Ns Premixed Ivpb - IVPB 100 mls/hr DAILY [facility] Administration Piperacillin Sod/Tazobactam 50 mls @ 100 mls/hr 03/02/18 02:00 03/03/18 09:55 Sod 3.375 gm/ Dextrose IVPB 100 mls/hr Q8H-IV [facility] Administration Protocol HEPARIN SOD,PORK IN 0.45% NACL 25,000 units in 500 mls @ 20 mls/hr 03/03/18 04 :00 03/03/18 04:41 Heparin-1/2ns 25,000 Units/500 IVPB 1,000 unit/hr TITR [facility] 20 mls/hr Administration Protocol 1,000 UNIT/HR Levothyroxine Sodium 112 mcg 03/02/18 07:00 03/03/18 06:45 Synthroid - PO 112 mcg DAILY@0700 [facility] Administration Mupirocin 1 applic 03/01/18 22:00 03/03/18 09:55 Bactroban Ointment (For Decolonization) - NS 03/06/18 21:59 1 applic BID [facility] Administration Ondansetron HCl 8 mg 03/01/18 20:35 Zofran Injection IVPB Q8H PRN NAUSEA Oxycodone HCl 5 mg 03/01/18 20:35 03/02/18 00:47 Roxicodone - PO 5 mg Q6H PRN Administration PAIN LEVEL 5-10 Pantoprazole Sodium 40 mg 03/02/18 10:00 03/03/18 09:55 Protonix - PO 40 mg DAILY [facility] Administration Promethazine HCl 12.5 mg 03/01/18 20:35 Phenergan Injection - IVPB Q6H PRN NAUSEA-FOR RESCUE AFTER 15 MIN Simethicone 80 mg 03/01/18 20:35 Mylicon - PO Q4H PRN GAS ASSESSMENT/PLAN: 57 year old man PMH hypothyroidism, Afib w/ RVR stage 1 colon cancer with Sue procedure performed 02/22 (Dr. Ventura). Patient with urine leak from abdominal site (02/26) found to have L sided ureteral extravasation with L nephrostomy tube placement (02/28). Brought to ICU s/p rapid response with tachycardia, hypotension and respiratory distress, satting into the 70s. Required NRB. Rhythm maintained sinus tachycardia and patient did not go into Afib w. RVR. As patient with recent intrabdominal urine leak w/ leukocytosis s/p abd surgery consider septic shock response. Pt found on U/S w/ L femoral DVT, on heparin gtt Patient w/ history of cancer, Afib, recent surgery and not on AC, suspicious for PE. ECHO, IR contacted agree to IVC filter pending ECHO discussed IR guided tPA - is not currently an option considering multiple surgeries within last 1.5 weeks. OR ureteral intervention canceled as there was a questionable new infiltrate on CXR. PLAN Cardiac Tachycardia w/ hypotension during rapid response, pmhx Afib w/ RVR - ECHO (02/21) with 65% EF no gross valvular dysfunction - elevated troponins down trending likely 2/2 demand - RIJ central line placed 03/01 Newly diagnosed DVT: (?) PE -STAT ECHO, IVC filter pending ECHO heparin gtt Renal L ureteral extravasation s/p abdominal surgery, w/ nephrostomy tube placement - 02/26: flush of urine from the abdomen, concerning for bladder or ureteral injury w/ CT Urogram showing left sided distal ureteral blush of contrast. - L nephrostomy tube placed 02/28 - Mazariegos - monitor urine output OR ureteral intervention canceled as there was a questionable new infiltrate on CXR. ID GI abscess, urine leak w/ leukocytosis Rapid response possibly due to septic shock 2/2 urine leak w/in the abdomen -Blood cultures (02/17) - without growth -Abscess culture (02/20) - lactose fermenting gram neg bacilli, coag pos staph, yeast -Per ID: Zosyn, Diflucan -Tylenol PRN for fever -bcx, ucx 03/02/18 neg Pulm Newly diagnosed DVT: (?) PE Pt found on U/S w/ L femoral DVT, on heparin gtt Patient w/ history of cancer, Afib, recent surgery and not on AC, suspicious for PE. -STAT ECHO, IR contacted agree to IVC filter pending ECHO discussed IR guided tPA - is not currently an option considering multiple surgeries within last 1.5 weeks. - ventimask -incentive spirometry Oncology Stage 1 Colon CA - Sue procedure - Followed by pathology and oncology. Endo Hypothyroidism - TSH within normal - Levothyroxine home med Analgesia - Oxycodone 5mg Q6H PRN F/E/N - CLD - d/c fluids 2/2 concern over fluid overload -full liquid advance as tolerated GI ppx - Protonix 40mg daily DVT ppx -IV Heparin Lines, Tubes: mazariegos, IR uroma drain, L nephrostomy drain, PIV, RIJ central access(03/01) Dispo: continue ICU monitoring. Visit type - Emergency Visit Emergency Visit: Yes ED Registration Date: 02/13/18 Care time: The patient presented to the Emergency Department on the above date and was hospitalized for further evaluation of their emergent condition. - New Patient This patient is new to me today: Yes Date on this admission: 03/03/18 - Critical Care Critical Care patient: Yes Total Critical Care Time (in minutes): 38 Critical Care Statement: The care of this patient involved high complexity decision making to prevent further life threatening deterioration of the patient 's condition and/or to evaluate & treat vital organ system(s) failure or risk of failure.
--- NOTE | 2018-03-03 15:37 | PN ---
Progress Note, Physician Chief Complaint: abdominal pain and colon mass History of Present Illness: 57 yo male presenting to [facility] ER via private auto complaining of occasional lower left abdominal discomfort. stable post operatively after second laparotomy. Gas and air in the colostomy this morning, We were called to the bedside when the patinet was reporting more abdominal pain. He is noted to worseing distension despite left nephrostomy and mazariegos placement. Transferred to ICU after rapid response. Urinoma drained via ultrasound at the bedside. Since then he has been more stable. - Current Medication List Current Medications: Active Medications Acetaminophen (Tylenol -) 650 mg PO Q4H PRN PRN Reason: FEVER Last Admin: 03/02/18 00:47 Dose: 650 mg Amino Acids (Prosource No Carb Liquid Pkt) 30 ml PO BID@0800,1730 [facility] Last Admin: 03/03/18 09:54 Dose: Not Given Benzocaine/Menthol (Cepacol Lozenge -) 1 each MM PRN PRN PRN Reason: SORE THROAT Chlorhexidine Gluconate (Hibiclens For Decolonization -) 1 applic TP HS [facility] Last Admin: 03/02/18 22:00 Dose: 1 applic Diphenhydramine HCl (Benadryl Injection -) 12.5 mg IVPUSH ONCE PRN PRN Reason: FOR ITCHING Heparin Sodium (Porcine) (Heparin -) 5,000 unit IVPUSH PRN PRN PRN Reason: Heparin Heparin Sodium (Porcine) (Heparin -) 1,000 unit IVPUSH PRN PRN PRN Reason: Heparin Fluconazole (Diflucan 200 Mg/Ns Premixed Ivpb -) 100 mls @ 100 mls/hr IVPB DAILY [facility] Last Admin: 03/03/18 09:55 Dose: 100 mls/hr Piperacillin Sod/Tazobactam (Sod 3.375 gm/ Dextrose) 50 mls @ 100 mls/hr IVPB Q8H-IV [facility]; Protocol Last Admin: 03/03/18 09:55 Dose: 100 mls/hr HEPARIN SOD,PORK IN 0.45% NACL (Heparin-1/2ns 25,000 Units/500) 25,000 units in 500 mls @ 20 mls/hr IVPB TITR [facility]; Protocol Last Admin: 03/03/18 04:41 Dose: 1,000 unit/hr, 20 mls/hr Levothyroxine Sodium (Synthroid -) 112 mcg PO DAILY@0700 [facility] Last Admin: 03/03/18 06:45 Dose: 112 mcg Mupirocin (Bactroban Ointment (For Decolonization) -) 1 applic NS BID [facility] Stop: 03/06/18 21:59 Last Admin: 03/03/18 09:55 Dose: 1 applic Ondansetron HCl (Zofran Injection) 8 mg IVPB Q8H PRN PRN Reason: NAUSEA Oxycodone HCl (Roxicodone -) 5 mg PO Q6H PRN PRN Reason: PAIN LEVEL 5-10 Last Admin: 03/02/18 00:47 Dose: 5 mg Pantoprazole Sodium (Protonix -) 40 mg PO DAILY [facility] Last Admin: 03/03/18 09:55 Dose: 40 mg Promethazine HCl (Phenergan Injection -) 12.5 mg IVPB Q6H PRN PRN Reason: NAUSEA-FOR RESCUE AFTER 15 MIN Simethicone (Mylicon -) 80 mg PO Q4H PRN PRN Reason: GAS - Objective Vital Signs: Vital Signs Temperature 98 F 03/03/18 14:00 Pulse Rate 95 H 03/03/18 14:00 Respiratory Rate 18 03/03/18 14:00 Blood Pressure 107/72 03/03/18 14:00 O2 Sat by Pulse Oximetry (%) 92 L 03/03/18 09:00 Vital Signs Period Temp Pulse Resp BP Sys/Cavanaugh Pulse Ox Last 24 Hr 98 F-98.9 F 72-96 18-22 91-108/63-74 92-97 Intake & Output 03/02/18 03/03/18 03/03/18 23:59 07:59 15:59 Intake Total 200 850 Output Total 2100 2100 600 Balance -1900 -1250 -600 Weight 197 lb Intake: IV 750 LACTATED RINGERS SOLUTION 750 1,000 ml In 1,000 ml @ 125 mls/hr IV ASDIR [facility] Rx#:[id number] IVPB 50 100 Oral 150 Output: Drainage 500 500 Left Lateral Abdomen 500 500 Urine 1600 1600 600 Mazariegos 1000 900 400 Left Nephrostomy 600 700 200 Other: Voiding Method Indwelling Catheter Indwelling Catheter Weight Measurement Method [facility] Constitutional: Yes: Well Nourished, No Distress, Calm, Thin Eyes: Yes: Conjunctiva Clear, EOM Intact HENT: Yes: Atraumatic, Normocephalic Neck: Yes: Supple, Trachea Midline Cardiovascular: Yes: Regular Rate and Rhythm, S1, S2 Respiratory: Yes: Regular, CTA Bilaterally Gastrointestinal: Yes: Normal Bowel Sounds, Soft, Tenderness (incisional). No: Ascites ...Rectal Exam: Yes: Deferred Genitourinary: Yes: CVA Tenderness - Left, CVA Tenderness - Right Musculoskeletal: No: Muscle Pain, Muscle Weakness Extremities: No: Cool, Cyanosis Edema: No Peripheral Pulses WNL: Yes Peripheral Pulses: Left Radial: 2+, Right Radial: 2+, Left Doralis Pedis: 2+, Right Dorsalis Pedis: 2+, Left Femoral: 2+, Right Femoral: 2+ Integumentary: No: Jaundice Neurological: Yes: Alert, Oriented Psychiatric: Yes: Alert, Oriented Labs: CBC, BMP 03/03/ 05:30 03/03/18 05:30 INR, PTT INR 1.33 (0.83-1.09) H 02/21/ 20:30 Problem List - Problems (1) Neoplasm of sigmoid colon Assessment/Plan: POD#15 s/p sigmoid colectomy and primary anastomosis (due to sigmoid colon mass ) POD#8 s/p completion left colectomy and amado's (due to perforated diverticulum distal to anatomosis), gas and liquid stool now in the colostomy, Leukocystosis >15 (>85%N). Noted on imaging to have left distal 1/3rd ureteral injury likely attributable to reoperation for a perforated diverticulum. Now temporized with a left nephrostomy and mazariegos. Possible cystoscopy and retrograde stent will be attempted. LE duplex showed acute DVT thus it is believed he may have had a PE, despite SCD and early ambulation. Agree with antiplatelet therapy, avoid throbolysis. ICu managemnt clear liquid diet and advance as tolerated and appropriate based on planned procedure IVF hydration replete electrolytes - calcium antiemetic OOB and ambulate encourage IS family discussion is in order, with daughter will follow This patient is critically ill. Time spent reviewing chart, examining patient, talking with providers and/or family and documentation is 35 minutes. Code(s): D49.0 - NEOPLASM OF UNSPECIFIED BEHAVIOR OF DIGESTIVE SYSTEM (2) Sigmoid thickening Code(s): K63.9 - DISEASE OF INTESTINE, UNSPECIFIED (3) Abdominal pain Code(s): R10.9 - UNSPECIFIED ABDOMINAL PAIN Qualifiers: Abdominal location: left lower quadrant Qualified Code(s): R10.32 - Left lower quadrant pain (4) Abnormal colonoscopy Code(s): R93.3 - ABNORMAL FINDINGS ON DX IMAGING OF PRT DIGESTIVE TRACT
[2018-03-03] MEDS ORDERED: LACTATED RINGERS SOLUTION 1,000 ML/1,000 ML INFUS.BAG IV SCH (16:30)
[2018-03-03] MEDS: LACTATED RINGERS SOLUTION 1,000 ML/1,000 ML INFUS.BAG IV SCH (17:14)
--- NOTE | 2018-03-03 17:46 | PN ---
Teaching Attending Note Name of Resident: Betty Cardoza ATTENDING PHYSICIAN STATEMENT I saw and evaluated the patient. I reviewed the resident's note and discussed the case with the resident. I agree with the resident's findings and plan as documented. SUBJECTIVE:asymptomatic. tolerating liquid diet. denies CP, SOB, fever, chills, cough, hemoptysis, N/V/C/D OBJECTIVE: Last Vital Signs Temp Pulse Resp BP Pulse Ox 98 F 88 18 103/69 92 L 03/03/18 14:00 03/03/18 16:00 03/03/18 16:00 03/03/18 16:00 03/03/18 09:00 General NAD CV S1 S2 RRR no murmur/rub/gallop Lungs decrease breath sounds anteriorly. poor inspiraotry effort Abdomen soft NT/ND wound vac midline. +colostomy with brown liquid stool. nephrostomy drain with clear urine, Uroma pigtail with urine Extremities trace pitting edema no calf tenderness ASSESSMENT AND PLAN: 57yo M with PMH hypothyroid presenetd to the ER with intermittent LLQ pain with recent colonoscopy with finding suspicious for malignancy. Pt underwent sigmoid colectomy on 02/14 which patient developed pneumoperitoneum and abdominal abscess and underwent ex-lap with abdominal washout and complete L hemicolectomy with Hartmans due to perforated diverticulum on 02/21. Pt went into AFib with RVR during the procedure which he self converted. Course complicated by L uretral injury iwth Ureteral extravsation seen with PCN tube was placed. SHOE SHINER called on 03/01 where pt was found to have a uroma where bedside pigtail placed and patient was transferred to ICU. patient care was transferred to [facility] Hospital[facility] service at request of patient and family 1. Stage 1 colon ca s/p resection and Hartmans- s/p surgeries as stated above with wound vac and colostomy in place. Further wound care and wound vac management per surgical team. diet advanced to clear liquids. pain control 2. Sepsis due to Urine leak-s/p pigtail placement bedside by IR draining clear urine. Urology to place stent on Tuesday. urology and ID on board 3. Abdominal abscess due to perforated diverticulum- s/p Hartmans 02/21. + polymicrobial (E.Coli, B.Fragilis, Yeast) on zosyn and fluconazole. leukocytosis resolved. repeat Cx NGTD. may need to broaden coverage. ID on board 4. +LLE DVT and PE- unable to CTA due to instability, echo done showing R heart strain and highly suggestive of PE at this time. will call IR to see if thrombectomy is indicated. high risk of doing TPA directed catheter with recent surgeries and bleeding. will cont hep ggt for now. switch to lovenox once more stable and no more interventions are planned. 5. Tropinemia- demand due to sepsis and hypoxia. Trop peaked at 0.86 and trended down. no indication for further monitoring of troponins. echo pending 6. PAF- no repeat episodes of afib noted. last night was noted to be in NSR. was seen by cardio. as pt self-converted. no further workup at this time 7. pseudohypocalcemia- corrected Ca 8.8 8. MICU monitoring. The care of this patient involved high complexity decision making to prevent further life threatening deterioration of the patient's condition and/or to evaluate & treat vital organ system(s) failure or risk of failure. 35 mins
--- NOTE | 2018-03-03 18:27 | PATH ---
Cytology Non-Gynecological Report Patient Name: AGUSTO HUSSEIN [facility]. Rec. 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 Specimen(s) Received PERITONEAL FLUID Clinical History Status post colon surgery for diverticulitis Final Diagnosis PERITONEAL FLUID FOR CYTOLOGY: SATISFACTORY FOR EVALUATION. NO MALIGNANT CELLS IDENTIFIED. ACUTE PURULENT EXUDATE COMPRISED OF NUMEROUS NEUTROPHILS AND SCATTERED LYMPHOCYTES PRESENT. Comment: Prior materials are noted. Electronically Signed Laquita Spaulding M.D. Gross Description Approximately 50 cc of yellow fluid received fixed in 50% alcohol. One cytofunnel prepared and Pap stained. One cellblock prepared.
[2018-03-03] MEDS: CHLORHEXIDINE GLUCONATE 4% CLEANSER FOR DECOLONIZATION TP SCH (21:26)
[2018-03-04] MEDS ORDERED: DEXTROSE 5%-WATER - 50 ML IVPB ONE ×4 (01:09→23:44)
[2018-03-04] MEDS ORDERED: PIPERACILLIN/TAZOBACTAM 3.375 GM VIAL IVPB ONE ×4 (01:09→23:44)
[2018-03-04] MEDS: PIPERACILLIN/TAZOB 3.375 GM 3.375 GM in DEXTROSE 5%-WATER - 50 ML IVPB SCH ×3 (01:46→17:53)
[2018-03-04] MEDS ORDERED: PT OWN MED DRAWER 7, Y5N ONE ×2 (04:49→10:00)
[2018-03-04 06:03] LABS: BASO % 0.6 % (0-2.0); EOS % 1.4 % (0-4.5); HEMATOCRIT 25.4 % (35.4-49); HEMOGLOBIN 8.2 GM/dL (11.7-16.9); LYMPH % 14.2 % (8-40); MCH 26.9 pg (25.7-33.7); MCHC 32.3 g/dl (32.0-35.9); MEAN CELL VOLUME 83.4 fl (80-96); MEAN PLT VOLUME 6.7 fl (7.5-11.1); MONO % 6.3 % (3.8-10.2); NEUT % 77.5 % (42.8-82.8); PLATELET COUNT 433 K/MM3 (134-434); RBC 3.04 M/mm3 (4.00-5.60); RDW 19.9 % (11.9-15.9); WHITE BLOOD COUNT 6.5 K/mm3 (4.0-10.0)
[2018-03-04] MEDS: LEVOTHYROXINE NA 112 MCG TABLET (FP) PO SCH (06:12)
[2018-03-04] MEDS: HEPARIN SOD,PORK IN 0.45% NACL 25,000 UNITS/500 ML INFUS.BAG IVPB SCH (06:14)
[2018-03-04 06:42] LABS: ALBUMIN 1.4 g/dl (3.4-5.0); ALK PHOS 139 U/L (45-117); ANION GAP 5 MMOL/L (8-16); BILIRUBIN,TOTAL 0.4 mg/dL (0.2-1); BLOOD UREA NITROGEN 5 mg/dL (7-18); CHLORIDE 107 mmol/L (98-107); CO2 28 mmol/L (21-32); CREATININE 0.5 mg/dL (0.55-1.3); GLUCOSE,RANDOM 92 mg/dL (74-106); MAGNESIUM 2.3 mg/dL (1.8-2.4); PHOSPHOROUS 3.2 mg/dL (2.5-4.9); POTASSIUM 4.1 mmol/L (3.5-5.1); SGOT/AST 21 U/L (15-37); SGPT/ALT 29 U/L (13-61); SODIUM 140 mmol/L (136-145); TOT PROT 4.9 g/dl (6.4-8.2)
--- NOTE | 2018-03-04 08:01 | PN ---
Progress Note (short form) - Note Progress Note: PULM/CCM SUBJECTIVE: Patient seen and examined in the ICU. -tolerating IV hep,slow up titratition without evidence of bleeding -will need IVC if bleeds on hep OBJECTIVE: Vital Signs Temp 98 F 03/03/18 18:00 Pulse 78 03/04/18 06:00 Resp 16 03/04/18 06:00 BP 99/73 03/04/18 06:00 Pulse Ox 100 03/03/18 21:00 Intake & Output 03/03/18 03/03/18 03/04/18 11:59 23:59 11:59 Intake Total 850 1890 1104 Output Total 2300 1325 2050 Balance -1450 565 -946 Weight 89.358 kg 89.5 kg Intake: IV 750 1220 1104 HEPARIN-1/2NS 25,000 220 258 UNITS/500 25,000 units In 500 ml @ 1,000 UNIT/HR 20 mls/hr IVPB TITR [facility] Rx#:[id number] LACTATED RINGERS SOLUTION 750 1,000 ml In 1,000 ml @ 125 mls/hr IV ASDIR [facility] Rx#:[id number] LACTATED RINGERS SOLUTION 1000 846 1,000 ml In 1,000 ml @ 75 mls/hr IV ASDIR [facility] Rx #:[id number] IVPB 100 100 Oral 570 Output: Drainage 500 50 Left Lateral Abdomen 500 50 Urine 1800 1200 1900 Lentz 568 086 7842 Left Nephrostomy 900 800 500 Colostomy 125 100 Other: Voiding Method Indwelling Catheter Indwelling Catheter Weight Measurement Method Built in [facility] Built in [facility] Active Medications Acetaminophen (Tylenol -) 650 mg PO Q4H PRN PRN Reason: FEVER Last Admin: 03/02/18 00:47 Dose: 650 mg Amino Acids (Prosource No Carb Liquid Pkt) 30 ml PO BID@0800,1730 [facility] Last Admin: 03/03/18 17:13 Dose: 30 ml Benzocaine/Menthol (Cepacol Lozenge -) 1 each MM PRN PRN PRN Reason: SORE THROAT Chlorhexidine Gluconate (Hibiclens For Decolonization -) 1 applic TP HS [facility] Last Admin: 03/03/18 21:26 Dose: 1 applic Diphenhydramine HCl (Benadryl Injection -) 12.5 mg IVPUSH ONCE PRN PRN Reason: FOR ITCHING Heparin Sodium (Porcine) (Heparin -) 5,000 unit IVPUSH PRN PRN PRN Reason: Heparin Heparin Sodium (Porcine) (Heparin -) 1,000 unit IVPUSH PRN PRN PRN Reason: Heparin Last Admin: 03/03/18 16:09 Dose: 1,000 unit Fluconazole (Diflucan 200 Mg/Ns Premixed Ivpb -) 100 mls @ 100 mls/hr IVPB DAILY [facility] Last Admin: 03/03/18 09:55 Dose: 100 mls/hr Piperacillin Sod/Tazobactam (Sod 3.375 gm/ Dextrose) 50 mls @ 100 mls/hr IVPB Q8H-IV [facility]; Protocol Last Admin: 03/04/18 01:46 Dose: 100 mls/hr HEPARIN SOD,PORK IN 0.45% NACL (Heparin-1/2ns 25,000 Units/500) 25,000 units in 500 mls @ 20 mls/hr IVPB TITR [facility]; Protocol Last Admin: 03/04/18 06:14 Dose: 1,200 unit/hr, 24 mls/hr Lactated Ringer's (Lactated Ringers Solution) 1,000 ml in 1,000 mls @ 75 mls/ hr IV ASDIR [facility] Last Admin: 03/03/18 17:14 Dose: 75 mls/hr Levothyroxine Sodium (Synthroid -) 112 mcg PO DAILY@0700 [facility] Last Admin: 03/04/18 06:12 Dose: 112 mcg Mupirocin (Bactroban Ointment (For Decolonization) -) 1 applic NS BID [facility] Stop: 03/06/18 21:59 Last Admin: 03/03/18 21:26 Dose: 1 applic Ondansetron HCl (Zofran Injection) 8 mg IVPB Q8H PRN PRN Reason: NAUSEA Oxycodone HCl (Roxicodone -) 5 mg PO Q6H PRN PRN Reason: PAIN LEVEL 5-10 Last Admin: 03/02/18 00:47 Dose: 5 mg Pantoprazole Sodium (Protonix -) 40 mg PO DAILY [facility] Last Admin: 03/03/18 09:55 Dose: 40 mg Promethazine HCl (Phenergan Injection -) 12.5 mg IVPB Q6H PRN PRN Reason: NAUSEA-FOR RESCUE AFTER 15 MIN Simethicone (Mylicon -) 80 mg PO Q4H PRN PRN Reason: GAS Gen: no distress, sating well on ventimask Heart: RRR Lung: bibasilar crackles Abd: soft, nontender, +ostomy with air in bag, Left nephrostomy, nephrostomy drain intact Ext: trace + edema neuro: non focal Laboratory Results - last 24 hr 03/01/18 03/03/18 03/03/18 18:00 14:00 21:25 WBC RBC Hgb Hct MCV MCH MCHC RDW Plt Count MPV Absolute Neuts (auto) Neutrophils % Lymphocytes % Monocytes % Eosinophils % Basophils % Nucleated RBC % PTT (Actin FS) 46.5 H 44.9 H Sodium Potassium Chloride Carbon Dioxide Anion Gap BUN Creatinine Creat Clearance w eGFR Random Glucose Calcium Phosphorus Magnesium Total Bilirubin AST ALT Alkaline Phosphatase Total Protein Albumin POC Fluid pH 7.6 Fluid Total Protein 0.9 Body Fluid LDH Source 890 Fluid Amylase 213 03/04/18 03/04/18 03/04/18 05:30 05:30 05:30 WBC 6.5 RBC 3.04 L Hgb 8.2 L Hct 25.4 L MCV 83.4 MCH 26.9 MCHC 32.3 RDW 19.9 H Plt Count 433 MPV 6.7 L Absolute Neuts (auto) 5.0 Neutrophils % 77.5 Lymphocytes % 14.2 Monocytes % 6.3 Eosinophils % 1.4 Basophils % 0.6 Nucleated RBC % 0 PTT (Actin FS) 55.1 H Sodium 140 Potassium 4.1 Chloride 107 Carbon Dioxide 28 Anion Gap 5 L BUN 5 L Creatinine 0.5 L Creat Clearance w eGFR > 60 Random Glucose 92 Calcium 7.0 L Phosphorus 3.2 Magnesium 2.3 Total Bilirubin 0.4 AST 21 ALT 29 Alkaline Phosphatase 139 H Total Protein 4.9 L Albumin 1.4 L POC Fluid pH Fluid Total Protein Body Fluid LDH Source Fluid Amylase Microbiology 03/01/18 17:00 Ascites AFB Smear Concentration - Final 03/01/18 17:00 Ascites Mycobacterial Culture - Preliminary 03/01/18 17:00 Ascites Gram Stain - Final 03/01/18 17:00 Ascites Body Fluid Culture - Preliminary Yeast Like Organism 03/02/18 10:00 Urine - Urine Lentz Urine Culture - Final NO GROWTH OBTAINED 03/02/18 08:40 Blood - Peripheral Venous Blood Culture - Preliminary NO GROWTH OBTAINED AFTER 24 HOURS, INCUBATION TO CONTINUE FOR 4 DAYS. 03/02/18 08:35 Blood - Peripheral Venous Blood Culture - Preliminary NO GROWTH OBTAINED AFTER 24 HOURS, INCUBATION TO CONTINUE FOR 4 DAYS. 03/01/18 17:00 Ascites RADHA Preparation - Preliminary 03/01/18 17:00 Ascites Fungal Culture - Preliminary 02/24/18 14:50 Blood - Peripheral Venous Blood Culture - Final NO GROWTH AFTER 5 DAYS INCUBATION 02/24/18 14:30 Blood - Peripheral Venous Blood Culture - Final NO GROWTH AFTER 5 DAYS INCUBATION 02/22/18 21:40 Blood - Peripheral Venous Blood Culture - Final NO GROWTH AFTER 5 DAYS INCUBATION 02/22/18 20:15 Blood - Peripheral Venous Blood Culture - Final NO GROWTH AFTER 5 DAYS INCUBATION 02/20/18 14:30 Abscess Gram Stain - Final 02/20/18 14:30 Abscess Body Fluid Culture - Final Escherichia Coli Staphylococcus Aureus Yeast Like Organism 02/20/18 14:30 Abscess Anaerobic Culture - Final Bacteroides Fragilis 02/22/18 23:24 Urine - Urine Lentz Urine Culture - Final NO GROWTH OBTAINED 02/17/18 20:00 Blood - Peripheral Venous Blood Culture - Final NO GROWTH AFTER 5 DAYS INCUBATION 02/17/18 17:00 Blood - Peripheral Venous Blood Culture - Final NO GROWTH AFTER 5 DAYS INCUBATION 02/17/18 16:40 Urine - Urine Clean Catch Urine Culture - Final NO GROWTH OBTAINED ASSESSMENT AND PLAN: Colon CA Newly diagnosed DVT: (?) PE s/p Sigmoid Colectomy 02/14 Post op Fecal Peritonitis/Perforated Diverticulum s/p ex-lap/abdominal washout/Left Colectomy/End Colostomy Lone vs Paroxysmal Atrial Fibrillation Acute Hypoxic Respiratory Failure Volume Overload Left Ureteral Leak s/p Nephrostomy placement Intra-abdominal Abscess s/p IR drainage Septic Shock +Troponins likely Demand Ischemia Hypothyroidism - Fio2 as needed - IV Heparin gtt - ABX - f/u pending cultures - monitor urine output, creatinine - pain control - incentive spirometry - O2 to keep Spo2 >90% - DVT prophylaxis - continue ICU monitoring until perc revision/stent on tuesday and while challenging with heparin Pranav ACNP [id number]
[2018-03-04] MEDS: MUPIROCIN 2% TOPICAL OINTMENT FOR DECOLONIZATION NS SCH ×2 (09:58→21:33)
[2018-03-04] MEDS: AMINO ACIDS/PROTEIN HYDROLYS 30 ML LIQUID.PKT PO SCH ×2 (09:58→17:53)
[2018-03-04] MEDS: PANTOPRAZOLE 40 MG TABLET (FP) PO SCH (10:00)
[2018-03-04] MEDS: FLUCONAZOLE 200 MG/NS 100 ML IVPB SCH (10:00)
[2018-03-04] MEDS: LACTATED RINGERS SOLUTION 1,000 ML/1,000 ML INFUS.BAG IV SCH ×2 (10:14→17:57)
--- NOTE | 2018-03-04 13:10 | PN ---
Progress Note (short form) - Note Progress Note: resting comfortable. tolerating diet. denies CP, SOB, fever, chills, N/V/C/D Current Medications Generic Name Dose Route Start Last Admin Trade Name Paulq PRN Reason Stop Dose Admin Acetaminophen 650 mg 03/01/18 20:35 03/02/18 00:47 Tylenol - PO 650 mg Q4H PRN Administration FEVER Amino Acids 30 ml 03/02/18 08:00 03/04/18 09:58 Prosource No Carb Liquid Pkt PO 30 ml BID@0800,1730 [facility] Administration Benzocaine/Menthol 1 each 03/01/18 20:35 Cepacol Lozenge - MM PRN PRN SORE THROAT Chlorhexidine Gluconate 1 applic 03/01/18 22:00 03/03/18 21:26 Hibiclens For Decolonization - TP 1 applic HS [facility] Administration Diphenhydramine HCl 12.5 mg 03/01/18 20:35 Benadryl Injection - IVPUSH ONCE PRN FOR ITCHING Heparin Sodium (Porcine) 5,000 unit 03/03/18 04:00 Heparin - IVPUSH PRN PRN Heparin Heparin Sodium (Porcine) 1,000 unit 03/03/18 04:00 03/03/18 16:09 Heparin - IVPUSH 1,000 unit PRN PRN Administration Heparin Fluconazole 100 mls @ 100 mls/hr 03/02/18 10:00 03/04/18 10:00 Diflucan 200 Mg/Ns Premixed Ivpb - IVPB 100 mls/hr DAILY [facility] Administration Piperacillin Sod/Tazobactam 50 mls @ 100 mls/hr 03/02/18 02:00 03/04/18 10:01 Sod 3.375 gm/ Dextrose IVPB 100 mls/hr Q8H-IV [facility] Administration Protocol HEPARIN SOD,PORK IN 0.45% NACL 25,000 units in 500 mls @ 20 mls/hr 03/03/18 04 :00 03/04/18 06:14 Heparin-1/2ns 25,000 Units/500 IVPB 1,200 unit/hr TITR [facility] 24 mls/hr Administration Protocol 1,000 UNIT/HR Lactated Ringer's 1,000 ml in 1,000 mls @ 75 mls/hr 03/03/18 17:00 03/04/18 10:14 Lactated Ringers Solution IV 75 mls/hr ASDIR [facility] Administration Levothyroxine Sodium 112 mcg 03/02/18 07:00 03/04/18 06:12 Synthroid - PO 112 mcg DAILY@0700 [facility] Administration Mupirocin 1 applic 03/01/18 22:00 03/04/18 09:58 Bactroban Ointment (For Decolonization) - NS 03/06/18 21:59 1 applic BID [facility] Administration Ondansetron HCl 8 mg 03/01/18 20:35 Zofran Injection IVPB Q8H PRN NAUSEA Oxycodone HCl 5 mg 03/01/18 20:35 03/02/18 00:47 Roxicodone - PO 5 mg Q6H PRN Administration PAIN LEVEL 5-10 Pantoprazole Sodium 40 mg 03/02/18 10:00 03/04/18 10:00 Protonix - PO 40 mg DAILY [facility] Administration Promethazine HCl 12.5 mg 03/01/18 20:35 Phenergan Injection - IVPB Q6H PRN NAUSEA-FOR RESCUE AFTER 15 MIN Simethicone 80 mg 03/01/18 20:35 Mylicon - PO Q4H PRN GAS Last Vital Signs Temp Pulse Resp BP Pulse Ox 97.8 F 88 16 117/70 96 03/04/18 10:00 03/04/18 12:00 03/04/18 12:00 03/04/18 12:00 03/04/18 09:00 General NAD CV S1 S2 RRR no murmur/rub/gallop Lungs decrease breath sounds anteriorly. poor inspiraotry effort Abdomen soft NT/ND wound vac midline. +colostomy with brown liquid stool. nephrostomy drain with clear urine, Uroma pigtail with urine Extremities trace pitting edema no calf tenderness CBCD WBC 6.5 K/mm3 (4.0-10.0) 03/04/18 05:30 RBC 3.04 M/mm3 (4.00-5.60) L 03/04/18 05:30 Hgb 8.2 GM/dL (11.7-16.9) L 03/04/18 05:30 Hct 25.4 % (35.4-49) L 03/04/18 05:30 MCV 83.4 fl (80-96) 03/04/18 05:30 MCHC 32.3 g/dl (32.0-35.9) 03/04/18 05:30 RDW 19.9 % (11.9-15.9) H 03/04/18 05:30 Plt Count 433 K/MM3 (134-434) 03/04/18 05:30 MPV 6.7 fl (7.5-11.1) L 03/04/18 05:30 CMP Sodium 140 mmol/L (136-145) 03/04/18 05:30 Potassium 4.1 mmol/L (3.5-5.1) 03/04/18 05:30 Chloride 107 mmol/L (98-107) 03/04/18 05:30 Carbon Dioxide 28 mmol/L (21-32) 03/04/18 05:30 Anion Gap 5 MMOL/L (8-16) L 03/04/18 05:30 BUN 5 mg/dL (7-18) L 03/04/18 05:30 Creatinine 0.5 mg/dL (0.55-1.3) L 03/04/18 05:30 Creat Clearance w eGFR > 60 (>60) 03/04/18 05:30 Calcium 7.0 mg/dL (8.5-10.1) L 03/04/18 05:30 Total Bilirubin 0.4 mg/dL (0.2-1) 03/04/18 05:30 AST 21 U/L (15-37) 03/04/18 05:30 ALT 29 U/L (13-61) 03/04/18 05:30 Alkaline Phosphatase 139 U/L (45-117) H 03/04/18 05:30 Total Protein 4.9 g/dl (6.4-8.2) L 03/04/18 05:30 Albumin 1.4 g/dl (3.4-5.0) L 03/04/18 05:30 ASSESSMENT AND PLAN: 57yo M with PMH hypothyroid presenetd to the ER with intermittent LLQ pain with recent colonoscopy with finding suspicious for malignancy. Pt underwent sigmoid colectomy on 02/14 which patient developed pneumoperitoneum and abdominal abscess and underwent ex-lap with abdominal washout and complete L hemicolectomy with Hartmans due to perforated diverticulum on 02/21. Pt went into AFib with RVR during the procedure which he self converted. Course complicated by L uretral injury iwth Ureteral extravsation seen with PCN tube was placed. [employer] called on 03/01 where pt was found to have a uroma where bedside pigtail placed and patient was transferred to ICU. [facility] and family 1. Stage 1 colon ca s/p resection and Hartmans- s/p surgeries as stated above with wound vac and colostomy in place. Further wound care and wound vac management per surgical team. tolerating clear liquids. pain control 2. Sepsis due to Urine leak-s/p pigtail placement bedside by IR draining clear urine. Urology to place stent on Tuesday. urology and ID on board 3. Abdominal abscess due to perforated diverticulum- s/p Hartmans 02/21. + polymicrobial (E.Coli, B.Fragilis, Yeast) on zosyn and fluconazole. leukocytosis resolved. repeat Cx NGTD. ID on board 4. +LLE DVT and PE- was unable to CTA due to instability, on heparin ggt. will leave for now until after no more procedures are planned. not a candidate for any intervention. will need NOAC for minimum of 6 months. 5. Tropinemia- demand due to sepsis and hypoxia. Trop peaked at 0.86 and trended down. no indication for further monitoring of troponins. echo pending 6. PAF- no repeat episodes of afib noted. last night was noted to be in NSR. was seen by cardio. as pt self-converted. no further workup at this time 7. pseudohypocalcemia- corrected Ca 8.8 8. MICU monitoring. The care of this patient involved high complexity decision making to prevent further life threatening deterioration of the patient's condition and/or to evaluate & treat vital organ system(s) failure or risk of failure. 38 mins Visit type - Emergency Visit Emergency Visit: Yes ED Registration Date: 02/13/18 Care time: The patient presented to the Emergency Department on the above date and was hospitalized for further evaluation of their emergent condition. - New Patient This patient is new to me today: No - Critical Care Critical Care patient: Yes Total Critical Care Time (in minutes): 38 Critical Care Statement: The care of this patient involved high complexity decision making to prevent further life threatening deterioration of the patient 's condition and/or to evaluate & treat vital organ system(s) failure or risk of failure. - Discharge Referral Referred to [facility] Med P.C.: No
--- NOTE | 2018-03-04 20:43 | PN ---
Progress Note, Physician Chief Complaint: abdominal pain and colon mass History of Present Illness: 57 yo male presenting to [facility] ER via private auto complaining of occasional lower left abdominal discomfort. stable post operatively after second laparotomy. Gas and air in the colostomy this morning, We were called to the bedside when the patinet was reporting more abdominal pain. He is noted to worseing distension despite left nephrostomy and mazariegos placement. Transferred to ICU after rapid response. Urinoma drained via ultrasound at the bedside. Since then he has been more stable. - Current Medication List Current Medications: Active Medications Acetaminophen (Tylenol -) 650 mg PO Q4H PRN PRN Reason: FEVER Last Admin: 03/02/18 00:47 Dose: 650 mg Amino Acids (Prosource No Carb Liquid Pkt) 30 ml PO BID@0800,1730 [facility] Last Admin: 03/04/18 17:53 Dose: 30 ml Benzocaine/Menthol (Cepacol Lozenge -) 1 each MM PRN PRN PRN Reason: SORE THROAT Chlorhexidine Gluconate (Hibiclens For Decolonization -) 1 applic TP HS [facility] Last Admin: 03/03/18 21:26 Dose: 1 applic Diphenhydramine HCl (Benadryl Injection -) 12.5 mg IVPUSH ONCE PRN PRN Reason: FOR ITCHING Heparin Sodium (Porcine) (Heparin -) 5,000 unit IVPUSH PRN PRN PRN Reason: Heparin Heparin Sodium (Porcine) (Heparin -) 1,000 unit IVPUSH PRN PRN PRN Reason: Heparin Last Admin: 03/03/18 16:09 Dose: 1,000 unit Fluconazole (Diflucan 200 Mg/Ns Premixed Ivpb -) 100 mls @ 100 mls/hr IVPB DAILY [facility] Last Admin: 03/04/18 10:00 Dose: 100 mls/hr Piperacillin Sod/Tazobactam (Sod 3.375 gm/ Dextrose) 50 mls @ 100 mls/hr IVPB Q8H-IV [facility]; Protocol Last Admin: 03/04/18 17:53 Dose: 100 mls/hr HEPARIN SOD,PORK IN 0.45% NACL (Heparin-1/2ns 25,000 Units/500) 25,000 units in 500 mls @ 20 mls/hr IVPB TITR [facility]; Protocol Last Admin: 03/04/18 06:14 Dose: 1,200 unit/hr, 24 mls/hr Lactated Ringer's (Lactated Ringers Solution) 1,000 ml in 1,000 mls @ 75 mls/ hr IV ASDIR [facility] Last Admin: 03/04/18 17:57 Dose: 75 mls/hr Levothyroxine Sodium (Synthroid -) 112 mcg PO DAILY@0700 [facility] Last Admin: 03/04/18 06:12 Dose: 112 mcg Mupirocin (Bactroban Ointment (For Decolonization) -) 1 applic NS BID [facility] Stop: 03/06/18 21:59 Last Admin: 03/04/18 09:58 Dose: 1 applic Ondansetron HCl (Zofran Injection) 8 mg IVPB Q8H PRN PRN Reason: NAUSEA Oxycodone HCl (Roxicodone -) 5 mg PO Q6H PRN PRN Reason: PAIN LEVEL 5-10 Last Admin: 03/02/18 00:47 Dose: 5 mg Pantoprazole Sodium (Protonix -) 40 mg PO DAILY [facility] Last Admin: 03/04/18 10:00 Dose: 40 mg Promethazine HCl (Phenergan Injection -) 12.5 mg IVPB Q6H PRN PRN Reason: NAUSEA-FOR RESCUE AFTER 15 MIN Simethicone (Mylicon -) 80 mg PO Q4H PRN PRN Reason: GAS - Objective Vital Signs: Vital Signs Temperature 98.8 F 03/04/18 13:43 Pulse Rate 93 H 03/04/18 19:19 Respiratory Rate 24 H 03/04/18 19:19 Blood Pressure 97/66 03/04/18 19:19 O2 Sat by Pulse Oximetry (%) 99 03/04/18 19:57 Vital Signs Period Temp Pulse Resp BP Sys/Cavanaugh Pulse Ox Last 24 Hr 97.6 F-99.8 F 62-84 14-22 102-127/66-83 99-99 Intake & Output 03/06/18 03/06/18 03/06/18 07:59 15:59 23:59 Intake Total 893 1438 200 Output Total 2050 1790 Balance -1157 -352 200 Intake: IV 693 1038 HEPARIN-1/2NS 25,000 168 UNITS/500 25,000 units In 500 ml @ 1,000 UNIT/HR 20 mls/hr IVPB TITR [facility] Rx#:[id number] HEPARIN-1/2NS 25,000 288 UNITS/500 25,000 units In 500 ml @ 1,000 UNITS/HR 20 mls/hr IVPB TITR [facility] Rx#:[id number] LACTATED RINGERS SOLUTION 525 1,000 ml In 1,000 ml @ 75 mls/hr IV [facility] Rx #:[id number] LACTATED RINGERS SOLUTION 750 1,000 ml In 1,000 ml @ 75 mls/hr IV ASDIR [facility] Rx #:[id number] IVPB 100 200 Oral 200 300 Output: Drainage 150 40 Left Lateral Abdomen 150 40 Urine 1800 1700 Mazariegos 700 1050 Left Nephrostomy 1100 650 Colostomy 100 50 Other: Voiding Method Indwelling Catheter Body Mass Index (BMI) 34.9 Constitutional: Yes: Well Nourished, No Distress, Calm Eyes: Yes: Conjunctiva Clear, EOM Intact HENT: Yes: Atraumatic, Normocephalic Neck: Yes: Supple, Trachea Midline Cardiovascular: Yes: Regular Rate and Rhythm, S1, S2 Respiratory: Yes: Regular, CTA Bilaterally Gastrointestinal: Yes: Normal Bowel Sounds, Soft, Tenderness. No: Ascites ...Rectal Exam: Yes: Deferred Genitourinary: No: CVA Tenderness - Left, CVA Tenderness - Right Musculoskeletal: No: Muscle Pain, Muscle Weakness Extremities: No: Cool, Cyanosis Edema: No Peripheral Pulses WNL: Yes Peripheral Pulses: Left Radial: 2+, Right Radial: 2+, Left Doralis Pedis: 2+, Right Dorsalis Pedis: 2+, Left Femoral: 2+, Right Femoral: 2+ Wound/Incision: Yes: Clean/Dry, Unapproximated Neurological: Yes: Alert, Oriented Psychiatric: Yes: Alert, Oriented Labs: CBC, BMP 03/04/18 05:30 03/04/18 05:30 INR, PTT INR 1.33 (0.83-1.09) H 02/21/18 20:30 Problem List - Problems (1) Neoplasm of sigmoid colon Assessment/Plan: POD#17 s/p sigmoid colectomy and primary anastomosis (due to sigmoid colon cancer) POD#10 s/p completion left colectomy and amado's (due to perforated diverticulum distal to anatomosis), gas and liquid stool now in the colostomy, Leukocystosis >15 (>85%N). Noted on imaging to have left distal 1/3rd ureteral injury likely attributable to reoperation for a perforated diverticulum. Now temporized with a left nephrostomy and mazariegos. Possible cystoscopy and retrograde stent will be attempted. LE duplex showed acute DVT thus it is believed he may have had a PE, despite SCD and early ambulation. Agree with antiplatelet therapy, avoid throbolysis. ICu managemnt clear liquid diet and advance as tolerated and appropriate based on planned procedure IVF hydration replete electrolytes - calcium antiemetic OOB and ambulate encourage IS family discussion is in order, with daughter will follow This patient is critically ill. Time spent reviewing chart, examining patient, talking with providers and/or family and documentation is 35 minutes. Code(s): D49.0 - NEOPLASM OF UNSPECIFIED BEHAVIOR OF DIGESTIVE SYSTEM (2) Sigmoid thickening Code(s): K63.9 - DISEASE OF INTESTINE, UNSPECIFIED (3) Abdominal pain Code(s): R10.9 - UNSPECIFIED ABDOMINAL PAIN Qualifiers: Abdominal location: left lower quadrant Qualified Code(s): R10.32 - Left lower quadrant pain (4) Abnormal colonoscopy Code(s): R93.3 - ABNORMAL FINDINGS ON DX IMAGING OF PRT DIGESTIVE TRACT
[2018-03-04] MEDS: CHLORHEXIDINE GLUCONATE 4% CLEANSER FOR DECOLONIZATION TP SCH (21:32)
[2018-03-05] MEDS ORDERED: PT OWN MED DRAWER 7, Y5N ONE ×3 (00:23→19:15)
[2018-03-05] MEDS: PIPERACILLIN/TAZOB 3.375 GM 3.375 GM in DEXTROSE 5%-WATER - 50 ML IVPB SCH ×3 (02:44→17:05)
[2018-03-05 06:50] LABS: ALBUMIN 1.5 g/dl (3.4-5.0); ALK PHOS 131 U/L (45-117); ANION GAP 7 MMOL/L (8-16); BILIRUBIN,TOTAL 0.3 mg/dL (0.2-1); BLOOD UREA NITROGEN 6 mg/dL (7-18); CALCIUM 7.3 mg/dL (8.5-10.1); CHLORIDE 106 mmol/L (98-107); CO2 26 mmol/L (21-32); CREATININE 0.5 mg/dL (0.55-1.3); GLUCOSE,RANDOM 99 mg/dL (74-106); POTASSIUM 3.9 mmol/L (3.5-5.1); SGOT/AST 17 U/L (15-37); SGPT/ALT 27 U/L (13-61); SODIUM 140 mmol/L (136-145)
[2018-03-05 07:09] LABS: HEMATOCRIT 25.5 % (35.4-49); HEMOGLOBIN 8.2 GM/dL (11.7-16.9); MCHC 32.3 g/dl (32.0-35.9); MEAN CELL VOLUME 83.5 fl (80-96); PLATELET COUNT 393 K/MM3 (134-434); RBC 3.06 M/mm3 (4.00-5.60); RDW 20.3 % (11.9-15.9); WHITE BLOOD COUNT 5.2 K/mm3 (4.0-10.0)
--- NOTE | 2018-03-05 08:08 | PN ---
Progress Note (short form) - Note Progress Note: PULM/CCM SUBJECTIVE: Patient seen and examined in the ICU. -tolerating IV hep, Crit stable - decreasing o2 requirement OBJECTIVE: Vital Signs Temp 98.6 F 03/05/18 02:00 Pulse 72 03/05/18 06:00 Resp 14 03/05/18 06:00 BP 99/63 03/05/18 06:00 Pulse Ox 99 03/04/18 19:57 Intake & Output 03/04/18 03/04/18 03/05/18 11:59 23:59 11:59 Intake Total 1104 1448 1348 Output Total 2800 2400 1100 Balance -1696 -952 248 Weight 89.5 kg Intake: IV 7225 481 8926 HEPARIN-1/2NS 25,000 258 288 348 UNITS/500 25,000 units In 500 ml @ 1,000 UNIT/HR 20 mls/hr IVPB TITR [facility] Rx#:[id number] LACTATED RINGERS SOLUTION 846 600 900 1,000 ml In 1,000 ml @ 75 mls/hr IV ASDIR [facility] Rx #:[id number] IVPB 200 100 Oral 360 Output: Drainage 450 400 Left Back 300 Left Lateral Abdomen 450 100 Urine 2250 2000 1100 Lentz 1400 1200 Left Nephrostomy 850 800 Void 1100 Colostomy 100 Other: Voiding Method Indwelling Catheter Indwelling Catheter Bowel Movement colostomy No Weight Measurement Method Built in [facility] Current Medications Acetaminophen (Tylenol -) 650 mg PO Q4H PRN PRN Reason: FEVER Last Admin: 03/02/18 00:47 Dose: 650 mg Amino Acids (Prosource No Carb Liquid Pkt) 30 ml PO BID@0800,1730 [facility] Last Admin: 03/04/18 17:53 Dose: 30 ml Benzocaine/Menthol (Cepacol Lozenge -) 1 each MM PRN PRN PRN Reason: SORE THROAT Chlorhexidine Gluconate (Hibiclens For Decolonization -) 1 applic TP HS [facility] Last Admin: 03/04/18 21:32 Dose: 1 applic Diphenhydramine HCl (Benadryl Injection -) 12.5 mg IVPUSH ONCE PRN PRN Reason: FOR ITCHING Heparin Sodium (Porcine) (Heparin -) 5,000 unit IVPUSH PRN PRN PRN Reason: Heparin Heparin Sodium (Porcine) (Heparin -) 1,000 unit IVPUSH PRN PRN PRN Reason: Heparin Last Admin: 03/03/18 16:09 Dose: 1,000 unit Fluconazole (Diflucan 200 Mg/Ns Premixed Ivpb -) 100 mls @ 100 mls/hr IVPB DAILY [facility] Last Admin: 03/04/18 10:00 Dose: 100 mls/hr Piperacillin Sod/Tazobactam (Sod 3.375 gm/ Dextrose) 50 mls @ 100 mls/hr IVPB Q8H-IV [facility]; Protocol Last Admin: 03/05/18 02:44 Dose: 100 mls/hr HEPARIN SOD,PORK IN 0.45% NACL (Heparin-1/2ns 25,000 Units/500) 25,000 units in 500 mls @ 20 mls/hr IVPB TITR [facility]; Protocol Last Titration: 03/04/18 19:30 Dose: 1,200 unit/hr, 24 mls/hr Lactated Ringer's (Lactated Ringers Solution) 1,000 ml in 1,000 mls @ 75 mls/ hr IV ASDIR [facility] Last Admin: 03/04/18 17:57 Dose: 75 mls/hr Levothyroxine Sodium (Synthroid -) 112 mcg PO DAILY@0700 [facility] Last Admin: 03/04/18 06:12 Dose: 112 mcg Mupirocin (Bactroban Ointment (For Decolonization) -) 1 applic NS BID [facility] Stop: 03/06/18 21:59 Last Admin: 03/04/18 21:33 Dose: 1 applic Ondansetron HCl (Zofran Injection) 8 mg IVPB Q8H PRN PRN Reason: NAUSEA Oxycodone HCl (Roxicodone -) 5 mg PO Q6H PRN PRN Reason: PAIN LEVEL 5-10 Last Admin: 03/02/18 00:47 Dose: 5 mg Pantoprazole Sodium (Protonix -) 40 mg PO DAILY [facility] Last Admin: 03/04/18 10:00 Dose: 40 mg Promethazine HCl (Phenergan Injection -) 12.5 mg IVPB Q6H PRN PRN Reason: NAUSEA-FOR RESCUE AFTER 15 MIN Simethicone (Mylicon -) 80 mg PO Q4H PRN PRN Reason: GAS Gen: no distress, sating well on ventimask Heart: RRR Lung: bibasilar crackles Abd: soft, nontender, +ostomy with air in bag, Left nephrostomy, nephrostomy drain intact Ext: trace + edema neuro: non focal, approppriate CBC, BMP 03/05/18 05:30 03/05/18 05:30 Microbiology 03/01/18 17:00 Ascites AFB Smear Concentration - Final 03/01/18 17:00 Ascites Mycobacterial Culture - Preliminary 03/01/18 17:00 Ascites Gram Stain - Final 03/01/18 17:00 Ascites Body Fluid Culture - Preliminary Yeast Like Organism 03/02/18 10:00 Urine - Urine Lentz Urine Culture - Final NO GROWTH OBTAINED 03/02/18 08:40 Blood - Peripheral Venous Blood Culture - Preliminary NO GROWTH OBTAINED AFTER 24 HOURS, INCUBATION TO CONTINUE FOR 4 DAYS. 03/02/18 08:35 Blood - Peripheral Venous Blood Culture - Preliminary NO GROWTH OBTAINED AFTER 24 HOURS, INCUBATION TO CONTINUE FOR 4 DAYS. 03/01/18 17:00 Ascites RADHA Preparation - Preliminary 03/01/18 17:00 Ascites Fungal Culture - Preliminary 02/24/18 14:50 Blood - Peripheral Venous Blood Culture - Final NO GROWTH AFTER 5 DAYS INCUBATION 02/24/18 14:30 Blood - Peripheral Venous Blood Culture - Final NO GROWTH AFTER 5 DAYS INCUBATION 02/22/18 21:40 Blood - Peripheral Venous Blood Culture - Final NO GROWTH AFTER 5 DAYS INCUBATION 02/22/18 20:15 Blood - Peripheral Venous Blood Culture - Final NO GROWTH AFTER 5 DAYS INCUBATION 02/20/18 14:30 Abscess Gram Stain - Final 02/20/18 14:30 Abscess Body Fluid Culture - Final Escherichia Coli Staphylococcus Aureus Yeast Like Organism 02/20/18 14:30 Abscess Anaerobic Culture - Final Bacteroides Fragilis 02/22/18 23:24 Urine - Urine Lentz Urine Culture - Final NO GROWTH OBTAINED 02/17/18 20:00 Blood - Peripheral Venous Blood Culture - Final NO GROWTH AFTER 5 DAYS INCUBATION 02/17/18 17:00 Blood - Peripheral Venous Blood Culture - Final NO GROWTH AFTER 5 DAYS INCUBATION 02/17/18 16:40 Urine - Urine Clean Catch Urine Culture - Final NO GROWTH OBTAINED ASSESSMENT AND PLAN: Colon CA Newly diagnosed DVT: (?) PE s/p Sigmoid Colectomy 02/14 Post op Fecal Peritonitis/Perforated Diverticulum s/p ex-lap/abdominal washout/Left Colectomy/End Colostomy Lone vs Paroxysmal Atrial Fibrillation Acute Hypoxic Respiratory Failure Volume Overload Left Ureteral Leak s/p Nephrostomy placement Intra-abdominal Abscess s/p IR drainage Septic Shock +Troponins likely Demand Ischemia Hypothyroidism - Fio2 as needed, down titrating - IV Heparin gtt - ABX as per ID - f/u pending cultures - monitor urine output, creatinine - pain control - incentive spirometry - O2 to keep Spo2 >90% - DVT prophylaxis - ok for floor today Pranav BILLSP [id number]
[2018-03-05] MEDS: LEVOTHYROXINE NA 112 MCG TABLET (FP) PO SCH (08:41)
[2018-03-05] MEDS: HEPARIN SOD,PORK IN 0.45% NACL 25,000 UNITS/500 ML INFUS.BAG IVPB SCH ×2 (08:41→21:08)
[2018-03-05] MEDS ORDERED: PIPERACILLIN/TAZOBACTAM 3.375 GM VIAL IVPB ONE ×3 (08:47→21:03)
[2018-03-05] MEDS ORDERED: DEXTROSE 5%-WATER - 50 ML IVPB ONE ×3 (08:48→21:03)
[2018-03-05] MEDS: AMINO ACIDS/PROTEIN HYDROLYS 30 ML LIQUID.PKT PO SCH ×2 (08:51→16:57)
[2018-03-05] MEDS: MUPIROCIN 2% TOPICAL OINTMENT FOR DECOLONIZATION NS SCH ×2 (09:06→21:07)
[2018-03-05] MEDS: PANTOPRAZOLE 40 MG TABLET (FP) PO SCH (09:06)
[2018-03-05] MEDS: FLUCONAZOLE 200 MG/NS 100 ML IVPB SCH (09:06)
--- NOTE | 2018-03-05 11:44 | PN ---
Teaching Attending Note Name of Resident: Betty Cardoza ATTENDING PHYSICIAN STATEMENT I saw and evaluated the patient. I reviewed the resident's note and discussed the case with the resident. I agree with the resident's findings and plan as documented. SUBJECTIVE:asymptomatic. state no dsypnea or cp. tolerating diet OBJECTIVE: Last Vital Signs Temp Pulse Resp BP Pulse Ox 97.2 F L 78 18 108/76 99 03/05/18 10:00 03/05/18 10:00 03/05/18 10:00 03/05/18 10:00 03/05/18 08:13 General NAD CV S1 S2 RRR no murmur/rub/gallop Lungs CTA anteriorly Abdomen soft NT/ND +wound vac down center. +[place] drains Extremities no pedal edema no calf tenderness ASSESSMENT AND PLAN: 57yo M with PMH hypothyroid presenetd to the ER with intermittent LLQ pain with recent colonoscopy with finding suspicious for malignancy. Pt underwent sigmoid colectomy on 02/14 which patient developed pneumoperitoneum and abdominal abscess and underwent ex-lap with abdominal washout and complete L hemicolectomy with Hartmans due to perforated diverticulum on 02/21. Pt went into AFib with RVR during the procedure which he self converted. Course complicated by L uretral injury iwth Ureteral extravsation seen with PCN tube was placed. STOCK [facility]ER called on 03/01 where pt was found to have a uroma where bedside pigtail placed and patient was transferred to ICU. patient care was transferred to [facility] at request of patient and family 1. Stage 1 colon ca s/p resection and Hartmans- s/p surgeries as stated above with wound vac and colostomy in place. Further wound care and wound vac management per surgical team. tolerating clear liquids. pain control 2. Sepsis due to Urine leak-s/p pigtail placement bedside by IR draining clear urine. Urology to place stent tomorrow. urology and ID on board 3. Abdominal abscess due to perforated diverticulum- s/p Hartmans 02/21. + polymicrobial (E.Coli, B.Fragilis, Yeast) on zosyn and fluconazole. leukocytosis resolved. repeat Cx NGTD. ID on board 4. +LLE DVT and PE- was unable to CTA due to instability, on heparin ggt. will leave for now until after no more procedures are planned. not a candidate for any intervention. will need NOAC for minimum of 6 months. 5. Tropinemia- demand due to sepsis and hypoxia. Trop peaked at 0.86 and trended down. no indication for further monitoring of troponins. echo pending 6. PAF- no repeat episodes of afib noted. no further workup at this time 7. pseudohypocalcemia- corrected Ca 8.8 8. MICU monitoring. The care of this patient involved high complexity decision making to prevent further life threatening deterioration of the patient's condition and/or to evaluate & treat vital organ system(s) failure or risk of failure. 35 mins
--- NOTE | 2018-03-05 11:53 | PN ---
Physical Exam: SUBJECTIVE: Patient seen and examined at bedside- no acute events overnight; patient is feeling well . he is now tolerating nasal cannula and is no longer needing ventimask. he denies any CP/SOB/N/V fevers or chills;' his MAPs have been ranging from 60's-70's and he is tolerating full liquid diet OBJECTIVE: Vital Signs Period Temp Pulse Resp BP Sys/Cavanaugh Pulse Ox Last 24 Hr 97.2 F-98.8 F 72-96 14-24 92-130/50-80 97-99 GENERAL: The patient is awake, alert, and fully oriented, in no acute distress. EYES: no scleral icterus NECK: no JVD, no lymphadenopathy LUNGS: crackles at the bases B/L HEART: Regular rate and rhythm, S1, S2 without murmur, rub or gallop. ABDOMEN: Soft, nontender, nondistended, normoactive bowel sounds, urostomy and colostomy bag in place EXTREMITIES: 2+ pulses, warm, well-perfused, trace edema. SKIN: Warm, dry, normal turgor, no rashes or lesions noted Laboratory Results - last 24 hr 03/05/18 03/05/18 03/05/18 05:30 05:30 05:30 WBC 5.2 RBC 3.06 L Hgb 8.2 L Hct 25.5 L MCV 83.5 MCH 27.0 MCHC 32.3 RDW 20.3 H Plt Count 393 MPV 7.0 L PTT (Actin FS) 48.6 H Sodium 140 Potassium 3.9 Chloride 106 Carbon Dioxide 26 Anion Gap 7 L BUN 6 L Creatinine 0.5 L Creat Clearance w eGFR > 60 Random Glucose 99 Calcium 7.3 L Total Bilirubin 0.3 AST 17 ALT 27 Alkaline Phosphatase 131 H Total Protein 5.0 L Albumin 1.5 L Active Medications Generic Name Dose Route Start Last Admin Trade Name Freq PRN Reason Stop Dose Admin Acetaminophen 650 mg 03/01/18 20:35 03/02/18 00:47 Tylenol - PO 650 mg Q4H PRN Administration FEVER Amino Acids 30 ml 03/02/18 08:00 03/05/18 08:51 Prosource No Carb Liquid Pkt PO 30 ml BID@0800,1730 [facility] Administration Benzocaine/Menthol 1 each 03/01/18 20:35 Cepacol Lozenge - MM PRN PRN SORE THROAT Chlorhexidine Gluconate 1 applic 03/01/18 22:00 03/04/18 21:32 Hibiclens For Decolonization - TP 1 applic HS [facility] Administration Diphenhydramine HCl 12.5 mg 03/01/18 20:35 Benadryl Injection - IVPUSH ONCE PRN FOR ITCHING Heparin Sodium (Porcine) 5,000 unit 03/03/18 04:00 Heparin - IVPUSH PRN PRN Heparin Heparin Sodium (Porcine) 1,000 unit 03/03/18 04:00 03/03/18 16:09 Heparin - IVPUSH 1,000 unit PRN PRN Administration Heparin Fluconazole 100 mls @ 100 mls/hr 03/02/18 10:00 03/05/18 09:06 Diflucan 200 Mg/Ns Premixed Ivpb - IVPB 100 mls/hr DAILY [facility] Administration Piperacillin Sod/Tazobactam 50 mls @ 100 mls/hr 03/02/18 02:00 03/05/18 10:02 Sod 3.375 gm/ Dextrose IVPB 100 mls/hr Q8H-IV [facility] Administration Protocol HEPARIN SOD,PORK IN 0.45% NACL 25,000 units in 500 mls @ 20 mls/hr 03/03/18 04 :00 03/05/18 08:41 Heparin-1/2ns 25,000 Units/500 IVPB Not Given TITR [facility] Protocol 1,000 UNIT/HR Lactated Ringer's 1,000 ml in 1,000 mls @ 75 mls/hr 03/03/18 17:00 03/04/18 17:57 Lactated Ringers Solution IV 75 mls/hr ASDIR [facility] Administration Levothyroxine Sodium 112 mcg 03/02/18 07:00 03/05/18 08:41 Synthroid - PO Not Given DAILY@0700 [facility] Mupirocin 1 applic 03/01/18 22:00 03/05/18 09:06 Bactroban Ointment (For Decolonization) - NS 03/06/18 21:59 1 applic BID [facility] Administration Ondansetron HCl 8 mg 03/01/18 20:35 Zofran Injection IVPB Q8H PRN NAUSEA Oxycodone HCl 5 mg 03/01/18 20:35 03/02/18 00:47 Roxicodone - PO 5 mg Q6H PRN Administration PAIN LEVEL 5-10 Pantoprazole Sodium 40 mg 03/02/18 10:00 03/05/18 09:06 Protonix - PO 40 mg DAILY [facility] Administration Promethazine HCl 12.5 mg 03/01/18 20:35 Phenergan Injection - IVPB Q6H PRN NAUSEA-FOR RESCUE AFTER 15 MIN Simethicone 80 mg 03/01/18 20:35 Mylicon - PO Q4H PRN GAS ASSESSMENT/PLAN: 57 year old man with history of hypothyroidism, Afib w/ RVR stage 1 colon cancer with Sue procedure performed 02/22 (Dr. Ventura). Patient with urine leak from abdominal site (02/26) found to have L sided ureteral extravasation with L nephrostomy tube placement (02/28). PLAN #Septic Shock possibly 2/2 urine leak -Maps were in 60's-70's overnight -CX negative -current abx as per ID; day 4 of zosyn and diflucan -monitor hemodynamics -patient found to have RV strain on echo- suggestive of PE; currently on heparin drip - ? if needs thrombectomy- if not will switch over to full dose lovenox after patient has stent procedure #GI Abcess with urine leak and leukocytosis - Blood cultures (02/17) - without growth - Abscess culture (02/20) - lactose fermenting gram neg bacilli, coag pos staph , yeast - Per ID: Zosyn, Diflucan (for yeast growth) day 4 - Tylenol PRN for fever #Ureteral Extravasation with nephrostomy tube placementt. - L nephrostomy tube placed 02/28 - Lentz - monitor urine output -ab/pelvis CT pending -pateint going for repeat stent surgery when more stable; most likely tomorrow AM #Colon Ca s/p Harrtmanns procedure -f/u pathology -f/u oncology recs #Hypothyroidism -TSH within normal limits c/w home dose of levothyroxine F/E/N -monitor electrolyres - 1L LR @ 75ml/hr - full liquid diet GI ppx - Protonix 40mg daily DVT ppx - heparin drip . Problem List - Problems (1) Abdominal pain Code(s): R10.9 - UNSPECIFIED ABDOMINAL PAIN Qualifiers: Abdominal location: left lower quadrant Qualified Code(s): R10.32 - Left lower quadrant pain (2) Abnormal colonoscopy Code(s): R93.3 - ABNORMAL FINDINGS ON DX IMAGING OF PRT DIGESTIVE TRACT (3) Afib Code(s): I48.91 - UNSPECIFIED ATRIAL FIBRILLATION (4) Left ureteral injury Code(s): S37.10XA - UNSPECIFIED INJURY OF URETER, INITIAL ENCOUNTER Visit type - Emergency Visit Emergency Visit: Yes ED Registration Date: 02/13/18 Care time: The patient presented to the Emergency Department on the above date and was hospitalized for further evaluation of their emergent condition. - New Patient This patient is new to me today: No - Critical Care Critical Care patient: No
--- NOTE | 2018-03-05 14:27 | PN ---
Progress Note, Physician History of Present Illness: stable no new issues on nasal canula - Current Medication List Current Medications: Active Medications Acetaminophen (Tylenol -) 650 mg PO Q4H PRN PRN Reason: FEVER Last Admin: 03/02/18 00:47 Dose: 650 mg Amino Acids (Prosource No Carb Liquid Pkt) 30 ml PO BID@0800,1730 [facility] Last Admin: 03/05/18 08:51 Dose: 30 ml Benzocaine/Menthol (Cepacol Lozenge -) 1 each MM PRN PRN PRN Reason: SORE THROAT Chlorhexidine Gluconate (Hibiclens For Decolonization -) [address] [facility] Last Admin: 03/04/18 21:32 Dose: 1 applic Diphenhydramine HCl (Benadryl Injection -) 12.5 mg IVPUSH ONCE PRN PRN Reason: FOR ITCHING Heparin Sodium (Porcine) (Heparin -) 5,000 unit IVPUSH PRN PRN PRN Reason: Heparin Heparin Sodium (Porcine) (Heparin -) 1,000 unit IVPUSH PRN PRN PRN Reason: Heparin Last Admin: 03/03/18 16:09 Dose: 1,000 unit Fluconazole (Diflucan 200 Mg/Ns Premixed Ivpb -) 100 mls @ 100 mls/hr IVPB DAILY [facility] Last Admin: 03/05/18 09:06 Dose: 100 mls/hr Piperacillin Sod/Tazobactam (Sod 3.375 gm/ Dextrose) 50 mls @ 100 mls/hr IVPB Q8H-IV [facility]; Protocol Last Admin: 03/05/18 10:02 Dose: 100 mls/hr HEPARIN SOD,PORK IN 0.45% NACL (Heparin-1/2ns 25,000 Units/500) 25,000 units in 500 mls @ 20 mls/hr IVPB TITR [facility]; Protocol Last Admin: 03/05/18 08:41 Dose: Not Given Lactated Ringer's (Lactated Ringers Solution) 1,000 ml in 1,000 mls @ 75 mls/ hr IV ASDIR [facility] Last Admin: 03/04/18 17:57 Dose: 75 mls/hr Levothyroxine Sodium (Synthroid -) 112 mcg PO DAILY@0700 [facility] Last Admin: 03/05/18 08:41 Dose: Not Given Mupirocin (Bactroban Ointment (For Decolonization) -) [address] [facility] Stop: 03/06/18 21:59 Last Admin: 03/05/18 09:06 Dose: 1 applic Ondansetron HCl (Zofran Injection) 8 mg IVPB Q8H PRN PRN Reason: NAUSEA Oxycodone HCl (Roxicodone -) 5 mg PO Q6H PRN PRN Reason: PAIN LEVEL 5-10 Last Admin: 03/02/18 00:47 Dose: 5 mg Pantoprazole Sodium (Protonix -) [address] [facility] Last Admin: 03/05/18 09:06 Dose: 40 mg Promethazine HCl (Phenergan Injection -) 12.5 mg IVPB Q6H PRN PRN Reason: NAUSEA-FOR RESCUE AFTER 15 MIN Simethicone (Mylicon -) 80 mg PO Q4H PRN PRN Reason: GAS - Objective Vital Signs: Vital Signs Temperature 97.2 F L 03/05/18 10:00 Pulse Rate 90 03/05/18 13:23 Respiratory Rate 18 03/05/18 13:23 Blood Pressure 115/69 03/05/18 13:23 O2 Sat by Pulse Oximetry (%) 99 03/05/18 08:13 Constitutional: Yes: No Distress, Calm Cardiovascular: Yes: S1, S2 Respiratory: Yes: Regular, CTA Bilaterally Gastrointestinal: Yes: Normal Bowel Sounds, Soft, Other (colostomy in place) Genitourinary: Yes: Other (urostomy in place) Extremities: Yes: WNL Neurological: Yes: Alert, Oriented Psychiatric: Yes: Alert, Oriented Labs: CBC, BMP 03/05/18 05:30 03/05/18 05:30 INR, PTT INR 1.33 (0.83-1.09) H 02/21/18 20:30 Assessment/Plan Problem List - Problems (1) Neoplasm of sigmoid colon Code(s): D49.0 - NEOPLASM OF UNSPECIFIED BEHAVIOR OF DIGESTIVE SYSTEM (2) Sigmoid thickening Code(s): K63.9 - DISEASE OF INTESTINE, UNSPECIFIED (3) Abdominal pain Code(s): R10.9 - UNSPECIFIED ABDOMINAL PAIN Qualifiers: Abdominal location: left lower quadrant Qualified Code(s): R10.32 - Left lower quadrant pain (4) Abnormal colonoscopy Code(s): R93.3 - ABNORMAL FINDINGS ON DX IMAGING OF PRT DIGESTIVE TRACT fever abd distension DVT ? pe ureteral tear left s/p ext nephrostomy plan continue current mgmt abx if patient stable will deescalate tomorrow rest as per the team monitor for resp failure rest as per icu patient improving cc 38 min
[2018-03-05] MEDS: LACTATED RINGERS SOLUTION 1,000 ML/1,000 ML INFUS.BAG IV SCH (16:56)
[2018-03-05] MEDS: CHLORHEXIDINE GLUCONATE 4% CLEANSER FOR DECOLONIZATION TP SCH (21:07)
[2018-03-06] MEDS: PIPERACILLIN/TAZOB 3.375 GM 3.375 GM in DEXTROSE 5%-WATER - 50 ML IVPB SCH ×3 (01:58→17:56)
[2018-03-06 06:16] LABS: HEMATOCRIT 26.6 % (35.4-49); HEMOGLOBIN 8.4 GM/dL (11.7-16.9); MCH 26.7 pg (25.7-33.7); MCHC 31.5 g/dl (32.0-35.9); MEAN CELL VOLUME 84.8 fl (80-96); MEAN PLT VOLUME 6.9 fl (7.5-11.1); PLATELET COUNT 367 K/MM3 (134-434); RBC 3.14 M/mm3 (4.00-5.60); RDW 20.5 % (11.9-15.9)
[2018-03-06] MEDS ORDERED: PT OWN MED DRAWER 7, Y5N ONE ×2 (06:20→14:54)
[2018-03-06] MEDS: LEVOTHYROXINE NA 112 MCG TABLET (FP) PO SCH (06:42)
[2018-03-06] MEDS: HEPARIN SOD,PORK IN 0.45% NACL 25,000 UNITS/500 ML INFUS.BAG IVPB SCH (06:42)
[2018-03-06 07:23] LABS: ALBUMIN 1.6 g/dl (3.4-5.0); ALK PHOS 144 U/L (45-117); ANION GAP 7 MMOL/L (8-16); BILIRUBIN,TOTAL 0.4 mg/dL (0.2-1); BLOOD UREA NITROGEN 5 mg/dL (7-18); CALCIUM 7.6 mg/dL (8.5-10.1); CHLORIDE 106 mmol/L (98-107); CO2 28 mmol/L (21-32); CREATININE 0.5 mg/dL (0.55-1.3); GLUCOSE,RANDOM 88 mg/dL (74-106); MAGNESIUM 2.3 mg/dL (1.8-2.4); PHOSPHOROUS 3.9 mg/dL (2.5-4.9); POTASSIUM 3.8 mmol/L (3.5-5.1); SGOT/AST 22 U/L (15-37); SGPT/ALT 28 U/L (13-61); SODIUM 141 mmol/L (136-145); TOT PROT 5.4 g/dl (6.4-8.2)
[2018-03-06] MEDS: AMINO ACIDS/PROTEIN HYDROLYS 30 ML LIQUID.PKT PO SCH ×2 (07:32→16:30)
[2018-03-06] MEDS ORDERED: PIPERACILLIN/TAZOBACTAM 3.375 GM VIAL IVPB ONE ×2 (08:08→17:27)
[2018-03-06] MEDS ORDERED: DEXTROSE 5%-WATER - 50 ML IVPB ONE ×2 (08:08→17:28)
[2018-03-06] MEDS: PANTOPRAZOLE 40 MG TABLET (FP) PO SCH (09:57)
[2018-03-06] MEDS: FLUCONAZOLE 200 MG/NS 100 ML IVPB SCH (09:57)
[2018-03-06] MEDS: MUPIROCIN 2% TOPICAL OINTMENT FOR DECOLONIZATION NS SCH ×2 (09:57→22:30)
--- NOTE | 2018-03-06 11:39 | PN ---
Teaching Attending Note Name of Resident: Acosta Watt ATTENDING PHYSICIAN STATEMENT I saw and evaluated the patient. I reviewed the resident's note and discussed the case with the resident. I agree with the resident's findings and plan as documented. SUBJECTIVE: Patient seen and examined in the ICU. Awake and alert on NC O2. Less tachypneic at rest. Denies CP or SOB. For possible OR tomorrow. OBJECTIVE: Intake & Output 03/03/18 03/04/18 03/05/18 03/06/18 23:59 23:59 23:59 23:59 Intake Total 2740 2552 3821 893 Output Total 3625 5200 5650 2720 Balance -975 -2648 -1829 -1827 Weight 197 lb 197 lb 5.019 oz Last Vital Signs Temp Pulse Resp BP Pulse Ox 98.9 F 64 18 111/71 99 03/06/18 10:00 03/06/18 10:00 03/06/18 10:00 03/06/18 10:00 03/06/18 07:26 Active Medications Acetaminophen (Tylenol -) 650 mg PO Q4H PRN PRN Reason: FEVER Last Admin: 03/02/18 00:47 Dose: 650 mg Amino Acids (Prosource No Carb Liquid Pkt) 30 ml PO BID@0800,1730 [facility] Last Admin: 03/06/18 07:32 Dose: Not Given Benzocaine/Menthol (Cepacol Lozenge -) 1 each MM PRN PRN PRN Reason: SORE THROAT Chlorhexidine Gluconate (Hibiclens For Decolonization -) 1 applic TP HS [facility] Last Admin: 03/05/18 21:07 Dose: 1 applic Diphenhydramine HCl (Benadryl Injection -) 12.5 mg IVPUSH ONCE PRN PRN Reason: FOR ITCHING Heparin Sodium (Porcine) (Heparin -) 5,000 unit IVPUSH PRN PRN PRN Reason: Heparin Heparin Sodium (Porcine) (Heparin -) 1,000 unit IVPUSH PRN PRN PRN Reason: Heparin Last Admin: 03/03/18 16:09 Dose: 1,000 unit Fluconazole (Diflucan 200 Mg/Ns Premixed Ivpb -) 100 mls @ 100 mls/hr IVPB DAILY [facility] Last Admin: 03/06/18 09:57 Dose: 100 mls/hr Piperacillin Sod/Tazobactam (Sod 3.375 gm/ Dextrose) 50 mls @ 100 mls/hr IVPB Q8H-IV [facility]; Protocol Last Admin: 03/06/18 09:56 Dose: 100 mls/hr HEPARIN SOD,PORK IN 0.45% NACL (Heparin-1/2ns 25,000 Units/500) 25,000 units in 500 mls @ 20 mls/hr IVPB TITR [facility]; Protocol Last Admin: 03/06/18 06:42 Dose: Not Given Lactated Ringer's (Lactated Ringers Solution) 1,000 ml in 1,000 mls @ 75 mls/ hr IV ASDIR [facility] Last Admin: 03/05/18 16:56 Dose: 75 mls/hr Levothyroxine Sodium (Synthroid -) 112 mcg PO DAILY@0700 [facility] Last Admin: 03/06/18 06:42 Dose: 112 mcg Mupirocin (Bactroban Ointment (For Decolonization) -) 1 applic NS BID [facility] Stop: 03/06/18 21:59 Last Admin: 03/06/18 09:57 Dose: 1 applic Ondansetron HCl (Zofran Injection) 8 mg IVPB Q8H PRN PRN Reason: NAUSEA Pantoprazole Sodium (Protonix -) 40 mg PO DAILY [facility] Last Admin: 03/06/18 09:57 Dose: Not Given Promethazine HCl (Phenergan Injection -) 12.5 mg IVPB Q6H PRN PRN Reason: NAUSEA-FOR RESCUE AFTER 15 MIN Simethicone (Mylicon -) 80 mg PO Q4H PRN PRN Reason: GAS Gen: NAD on NC O2 Heart: RRR Lung: basilar rhonchi Abd: soft, nontender, +ostomy with air in bag, Left nephrostomy, nephrostomy drain intact Ext: + edema Laboratory Results - last 24 hr 03/06/18 03/06/18 03/06/18 05:30 05:30 05:30 WBC 5.0 RBC 3.14 L Hgb 8.4 L Hct 26.6 L MCV 84.8 MCH 26.7 MCHC 31.5 L RDW 20.5 H Plt Count 367 MPV 6.9 L PTT (Actin FS) 55.8 H Sodium 141 Potassium 3.8 Chloride 106 Carbon Dioxide 28 Anion Gap 7 L BUN 5 L Creatinine 0.5 L Creat Clearance w eGFR > 60 Random Glucose 88 Calcium 7.6 L Phosphorus 3.9 Magnesium 2.3 Total Bilirubin 0.4 AST 22 ALT 28 Alkaline Phosphatase 144 H Total Protein 5.4 L Albumin 1.6 L ASSESSMENT AND PLAN: Colon CA Newly diagnosed DVT: (?) PE: (+) moderate elevation in RSVP on ECHO s/p Sigmoid Colectomy 02/14 Post op Fecal Peritonitis/Perforated Diverticulum s/p ex-lap/abdominal washout/Left Colectomy/End Colostomy Lone vs Paroxysmal Atrial Fibrillation Acute Hypoxic Respiratory Failure Volume Overload Left Ureteral Leak s/p Nephrostomy placement Intra-abdominal Abscess s/p IR drainage Septic Shock +Troponins likely Demand Ischemia Hypothyroidism - IV Heparin - ABX - monitor urine output, creatinine - pain control - incentive spirometry - O2 to keep Spo2 >90% - DVT prophylaxis - For OR tomorrow - 4W/4S monitoring Dr Rojo
--- NOTE | 2018-03-06 12:07 | PN ---
Teaching Attending Note Name of Resident: Betty Cardoza ATTENDING PHYSICIAN STATEMENT I saw and evaluated the patient. I reviewed the resident's note and discussed the case with the resident. I agree with the resident's findings and plan as documented. SUBJECTIVE:asymptomatic. denies Cp, SOB, fever, chills, N/V/C/D OBJECTIVE: Last Vital Signs Temp Pulse Resp BP Pulse Ox 98.9 F 64 18 111/71 99 03/06/18 10:00 03/06/18 10:00 03/06/18 10:00 03/06/18 10:00 03/06/18 07:26 General NAD CV S1 S2 RRR no murmur/rub/gallop Lungs CTA anteriorly Abdomen soft NT/ND +wound vac down center. +[place] drains Extremities no pedal edema no calf tenderness ASSESSMENT AND PLAN: 57yo M with PMH hypothyroid presenetd to the ER with intermittent LLQ pain with recent colonoscopy with finding suspicious for malignancy. Pt underwent sigmoid colectomy on 02/14 which patient developed pneumoperitoneum and abdominal abscess and underwent ex-lap with abdominal washout and complete L hemicolectomy with Hartmans due to perforated diverticulum on 02/21. Pt went into AFib with RVR during the procedure which he self converted. Course complicated by L uretral injury iwth Ureteral extravsation seen with PCN tube was placed. [employer] WORK[employer] called on 03/01 where pt was found to have a uroma where bedside pigtail placed and patient was transferred to ICU. [facility] and family 1. Stage 1 colon ca s/p resection and Hartmans- s/p surgeries as stated above with wound vac and colostomy in place. Further wound care and wound vac management per surgical team. tolerating clear liquids. pain control 2. Sepsis due to Urine leak-s/p pigtail placement bedside by IR draining clear urine. Urology to place stent tomorrow. urology and ID on board 3. Abdominal abscess due to perforated diverticulum- s/p Hartmans 02/21. + polymicrobial (E.Coli, B.Fragilis, Yeast) on zosyn and fluconazole. leukocytosis resolved. repeat Cx NGTD. ID on board 4. +LLE DVT and suspected PE- was unable to CTA due to instability, R heart strain seen on echo suggestive of PE. on heparin ggt. will leave for now until after no more procedures are planned. not a candidate for any intervention. will need NOAC for minimum of 6 months. 5. Tropinemia- demand due to sepsis and hypoxia. Trop peaked at 0.86 and trended down. no indication for further monitoring of troponins. echo pending 6. PAF- no repeat episodes of afib noted. no further workup at this time 7. pseudohypocalcemia- corrected Ca 8.8 8. stable for transfer to [facility]. The care of this patient involved high complexity decision making to prevent further life threatening deterioration of the patient's condition and/or to evaluate & treat vital organ system(s) failure or risk of failure. 32 mins
[2018-03-06] MEDS ORDERED: HEPARIN NA (PORCINE) 5,000 UNITS/ML 1ML VIAL IVPUSH PRN ×4 (12:26→12:53)
[2018-03-06] MEDS ORDERED: HEPARIN SOD,PORK IN 0.45% NACL 25,000 UNITS/500 ML INFUS.BAG IVPB SCH ×2 (12:26→13:30)
[2018-03-06] MEDS ORDERED: ONDANSETRON 4 MG/2 ML VIAL IVPB PRN ×2 (12:26→12:53)
[2018-03-06] MEDS ORDERED: SIMETHICONE 80 MG TAB.CHEW (FP) PO PRN ×2 (12:26→12:53)
[2018-03-06] MEDS ORDERED: LACTATED RINGERS SOLUTION 1,000 ML/1,000 ML INFUS.BAG IV SCH (12:26)
[2018-03-06] MEDS ORDERED: ACETAMINOPHEN 325 MG TABLET (FP) PO PRN (12:26)
[2018-03-06] MEDS ORDERED: PROMETHAZINE HCL 25 MG/1 ML VIAL IVPB PRN ×2 (12:26→12:53)
[2018-03-06] MEDS ORDERED: BENZOCAINE/MENTH/CETYLPYRD CL 1 EACH LOZENGE MM PRN ×2 (12:26→12:53)
--- NOTE | 2018-03-06 12:36 | PN ---
Physical Exam: SUBJECTIVE: Patient seen and examined. Alert, no overnight events. OBJECTIVE: Vital Signs Period Temp Pulse Resp BP Sys/Cavanaugh Pulse Ox Last 24 Hr 98.2 F-99.8 F 62-90 14-22 105-127/67-83 99-99 GENERAL: The patient is awake, alert, and fully oriented, in no acute distress, on ventimask HEAD: Normal with no signs of trauma. EYES: PERRLA, extraocular movements NECK: Trachea midline, full range of motion LUNGS: Slightly coarse breath sounds bilaterally, no wheezes, no crackles, no accessory muscle use. HEART: Regular rate and rhythm, S1, S2 without murmur, rub or gallop. ABDOMEN: abdominal wound dressings, clean dry EXTREMITIES: 2+ pulses, warm, well-perfused, no edema. NEUROLOGICAL: Cranial nerves II through XII grossly intact. PSYCH: Normal mood, normal affect. SKIN: Warm, dry, normal turgor, no rashes or lesions noted Laboratory Results - last 24 hr 03/06/18 03/06/18 03/06/18 05:30 05:30 05:30 WBC 5.0 RBC 3.14 L Hgb 8.4 L Hct 26.6 L MCV 84.8 MCH 26.7 MCHC 31.5 L RDW 20.5 H Plt Count 367 MPV 6.9 L PTT (Actin FS) 55.8 H Sodium 141 Potassium 3.8 Chloride 106 Carbon Dioxide 28 Anion Gap 7 L BUN 5 L Creatinine 0.5 L Creat Clearance w eGFR > 60 Random Glucose 88 Calcium 7.6 L Phosphorus 3.9 Magnesium 2.3 Total Bilirubin 0.4 AST 22 ALT 28 Alkaline Phosphatase 144 H Total Protein 5.4 L Albumin 1.6 L Active Medications Generic Name Dose Route Start Last Admin Trade Name Freq PRN Reason Stop Dose Admin Acetaminophen 650 mg 03/06/18 12:26 Tylenol - PO Q4H PRN FEVER Amino Acids 30 ml 03/06/18 17:30 Prosource No Carb Liquid Pkt PO BID@0800,1730 J[facility] Benzocaine/Menthol 1 each 03/06/18 12:26 Cepacol Lozenge - MM PRN PRN SORE THROAT Chlorhexidine Gluconate 1 applic 03/06/18 22:00 Hibiclens For Decolonization - TP HS JERED Diphenhydramine HCl 12.5 mg 03/06/18 12:26 Benadryl Injection - IVPUSH ONCE PRN FOR ITCHING Heparin Sodium (Porcine) 5,000 unit 03/06/18 12:26 Heparin - IVPUSH PRN PRN Heparin Heparin Sodium (Porcine) 1,000 unit 03/06/18 12:26 Heparin - IVPUSH PRN PRN Heparin Fluconazole 100 mls @ 100 mls/hr 03/07/18 10:00 Diflucan 200 Mg/Ns Premixed Ivpb - IVPB DAILY [facility] HEPARIN SOD,PORK IN 0.45% NACL 25,000 units in 500 mls @ 03/06/18 12:26 Heparin-1/2ns 25,000 Units/500 IVPB TITR JERED Protocol 1,000 UNIT/HR Lactated Ringer's 1,000 ml in 1,000 mls @ 75 mls/hr 03/06/18 12:26 Lactated Ringers Solution IV ASDIR J[facility]ED Piperacillin Sod/Tazobactam 50 mls @ 100 mls/hr 03/06/18 18:00 Sod 3.375 gm/ Dextrose IVPB Q8H-IV [facility] Protocol Levothyroxine Sodium 112 mcg 03/07/18 07:00 Synthroid - PO DAILY@0700 [facility] Mupirocin 1 applic 03/06/18 22:00 Bactroban Ointment (For Decolonization) - NS 03/11/18 21:59 BID [facility] Ondansetron HCl 8 mg 03/06/18 12:26 Zofran Injection IVPB Q8H PRN NAUSEA Pantoprazole Sodium 40 mg 03/07/18 10:00 Protonix - PO DAILY [facility] Promethazine HCl 12.5 mg 03/06/18 12:26 Phenergan Injection - IVPB Q6H PRN NAUSEA-FOR RESCUE AFTER 15 MIN Simethicone 80 mg 03/06/18 12:26 Mylicon - PO Q4H PRN GAS ASSESSMENT/PLAN: 57 year old man with history of hypothyroidism, Afib w/ RVR stage 1 colon cancer with Sue procedure performed 02/22 (Dr. Ventura). Patient with urine leak from abdominal site (02/26) found to have L sided ureteral extravasation with L nephrostomy tube placement (02/28). Brought to ICU s/p rapid response with tachycardia, hypotension and respiratory distress, satting into the 70s. Required NRB. Rhythm maintained sinus tachycardia and patient did not go into Afib w. RVR. Patient found to have LLE DVT with R heart strain on ECHO concerning for PE. PLAN Pulm Likely pulmonary embolism - ECHO (03/03) w/ R heart strain - pt unstable for CTA - Heparin gtt, will switch to lovenox when stable - ventimask - Early ambulation, IS - Repeat CXR Cardiac Tachycardia w/ hypotension during rapid response, pmhx Afib w/ RVR - elevated troponins down trending likely 2/2 demand - RIJ central line placed 03/01 Renal L ureteral extravasation s/p abdominal surgery, w/ L nephrostomy tube placement - 02/26: flush of urine from the abdomen, concerning for bladder or ureteral injury w/ CT Urogram showing left sided distal ureteral blush of contrast. - L nephrostomy tube placed 02/28 - Mazariegos - monitor urine output - plan for ureteral stent placement ID GI abscess, feculent peritonitis 2/2 perforated diverticulum, urine leak w/ leukocytosis Rapid response possibly due to septic shock 2/2 urine leak w/in the abdomen - Blood cultures (02/17) - without growth - Abscess culture (02/20) - lactose fermenting gram neg bacilli, coag pos staph , yeast - Per ID: Zosyn, Diflucan - Tylenol PRN for fever Oncology Stage 1 Colon CA - Sue procedure - Followed by pathology and oncology. Endo Hypothyroidism - TSH within normal - Levothyroxine home med Analgesia - Oxycodone 5mg Q6H PRN F/E/N - CLD, NPO after midnight for urology OR - d/c fluids 2/2 concern over fluid overload GI ppx - Protonix 40mg daily DVT ppx - heparin SQ Lines, Tubes: mazariegos, IR uroma drain, L nephrostomy drain, RIJ central access() Dispo: Transfer to telemetry Visit type - Emergency Visit Emergency Visit: No - New Patient This patient is new to me today: No - Critical Care Critical Care patient: No
--- NOTE | 2018-03-06 15:02 | PN ---
Physical Exam: SUBJECTIVE: Patient seen and examined at bedside. no acute events overnight; patient states he is feeling well and not in any pain; he denies any CP/SOB/N/V fevers or chills and is saturating well on nasal cannula. OBJECTIVE: Vital Signs Period Temp Pulse Resp BP Sys/Cavanaugh Pulse Ox Last 24 Hr 97.6 F-99.8 F 62-84 14-22 102-127/66-83 99-99 GENERAL: The patient is awake, alert, and fully oriented, in no acute distress. EYES: no scleral icterus, no. NECK: no JVD, no lymphadenopathy LUNGS: slight crackles at the right bases; no rales, rhonchi or wheezing HEART: Regular rate and rhythm, S1, S2 without murmur, rub or gallop. ABDOMEN: Soft, nontender, nondistended, normoactive bowel sounds, no guarding, no rebound, no hepatosplenomegaly, no masses left urosotmy and colostomy in place. EXTREMITIES: 2+ pulses, warm, well-perfused, trace edema. SKIN: Warm, dry, normal turgor, no rashes or lesions noted Laboratory Results - last 24 hr 03/06/18 03/06/18 03/06/18 05:30 05:30 05:30 WBC 5.0 RBC 3.14 L Hgb 8.4 L Hct 26.6 L MCV 84.8 MCH 26.7 MCHC 31.5 L RDW 20.5 H Plt Count 367 MPV 6.9 L PTT (Actin FS) 55.8 H Sodium 141 Potassium 3.8 Chloride 106 Carbon Dioxide 28 Anion Gap 7 L BUN 5 L Creatinine 0.5 L Creat Clearance w eGFR > 60 Random Glucose 88 Calcium 7.6 L Phosphorus 3.9 Magnesium 2.3 Total Bilirubin 0.4 AST 22 ALT 28 Alkaline Phosphatase 144 H Total Protein 5.4 L Albumin 1.6 L Active Medications Generic Name Dose Route Start Last Admin Trade Name Freq PRN Reason Stop Dose Admin Acetaminophen 650 mg 03/06/18 12:53 Tylenol - PO Q4H PRN FEVER Amino Acids 30 ml 03/06/18 17:30 Prosource No Carb Liquid Pkt PO BID@0800,1730 JERED Benzocaine/Menthol 1 each 03/06/18 12:53 Cepacol Lozenge - MM PRN PRN SORE THROAT Chlorhexidine Gluconate 1 applic 03/06/18 22:00 Hibiclens For Decolonization - TP HS JERED Diphenhydramine HCl 12.5 mg 03/06/18 12:53 Benadryl Injection - IVPUSH ONCE PRN FOR ITCHING Heparin Sodium (Porcine) 5,000 unit 03/06/18 12:53 Heparin - IVPUSH PRN PRN Heparin Heparin Sodium (Porcine) 1,000 unit 03/06/18 12:53 Heparin - IVPUSH PRN PRN Heparin Fluconazole 100 mls @ 100 mls/hr 03/07/18 10:00 Diflucan 200 Mg/Ns Premixed Ivpb - IVPB DAILY [facility] HEPARIN SOD,PORK IN 0.45% NACL 25,000 units in 500 mls @ 20 mls/hr 03/06/18 13 :30 03/06/18 14:56 Heparin-1/2ns 25,000 Units/500 IVPB 1,200 units/hr TITR JERED 24 mls/hr Administration Protocol 1,000 UNITS/HR Lactated Ringer's 1,000 ml in 1,000 mls @ 75 mls/hr 03/06/18 12:53 Lactated Ringers Solution IV ASDIR JERED Piperacillin Sod/Tazobactam 50 mls @ 100 mls/hr 03/06/18 18:00 Sod 3.375 gm/ Dextrose IVPB Q8H-IV [facility]ERED Protocol Piperacillin Sod/Tazobactam 50 mls @ 100 mls/hr 03/06/18 18:00 Sod 3.375 gm/ Dextrose IVPB 03/07/18 10:29 Q8H-IV [facility] Protocol Levothyroxine Sodium 112 mcg 03/07/18 07:00 Synthroid - PO DAILY@0700 [facility] Mupirocin 1 applic 03/06/18 22:00 Bactroban Ointment (For Decolonization) - NS 03/11/18 21:59 BID [facility] Ondansetron HCl 8 mg 03/06/18 12:53 Zofran Injection IVPB Q8H PRN NAUSEA Pantoprazole Sodium 40 mg 03/07/18 10:00 Protonix - PO DAILY [facility] Promethazine HCl 12.5 mg 03/06/18 12:53 Phenergan Injection - IVPB Q6H PRN NAUSEA-FOR RESCUE AFTER 15 MIN Simethicone 80 mg 03/06/18 12:53 Mylicon - PO Q4H PRN GAS ASSESSMENT/PLAN: 57 year old man with history of hypothyroidism, Afib w/ RVR stage 1 colon cancer with Sue procedure performed 02/22 (Dr. Ventura). Patient with urine leak from abdominal site (02/26) found to have L sided ureteral extravasation with L nephrostomy tube placement (02/28). PLAN #Septic Shock possibly 2/2 urine leak -Maps were in 60's-70's overnight -CX negative -current abx as per ID; day 4 of zosyn and diflucan -monitor hemodynamics -patient found to have RV strain on echo- suggestive of PE; currently on heparin drip - ? if needs thrombectomy- if not will switch over to full dose lovenox after patient has stent procedure #GI Abcess with urine leak and leukocytosis - Blood cultures (02/17) - without growth - Abscess culture (02/20) - lactose fermenting gram neg bacilli, coag pos staph , yeast - Per ID: Zosyn, Diflucan (for yeast growth) day 5 - Tylenol PRN for fever #Ureteral Extravasation with nephrostomy tube placementt. - L nephrostomy tube placed 02/28 - Lentz - monitor urine output -ab/pelvis CT pending -pateint going for repeat stent surgery tomorrow AM; holding heparin drip starting from 6 AM and NPO after midnight #Colon Ca s/p Harrtmanns procedure -f/u pathology -f/u oncology recs #Hypothyroidism -TSH within normal limits c/w home dose of levothyroxine F/E/N -monitor electrolyres - 1L LR @ 75ml/hr - full liquid diet however NPO aftr midnight GI ppx - Protonix 40mg daily DVT ppx - heparin drip . Problem List - Problems (1) Abdominal pain Code(s): R10.9 - UNSPECIFIED ABDOMINAL PAIN Qualifiers: Abdominal location: left lower quadrant Qualified Code(s): R10.32 - Left lower quadrant pain (2) Abnormal colonoscopy Code(s): R93.3 - ABNORMAL FINDINGS ON DX IMAGING OF PRT DIGESTIVE TRACT (3) Afib Code(s): I48.91 - UNSPECIFIED ATRIAL FIBRILLATION (4) Left ureteral injury Code(s): S37.10XA - UNSPECIFIED INJURY OF URETER, INITIAL ENCOUNTER Visit type - Emergency Visit Emergency Visit: Yes ED Registration Date: 02/13/18 Care time: The patient presented to the Emergency Department on the above date and was hospitalized for further evaluation of their emergent condition. - New Patient This patient is new to me today: No - Critical Care Critical Care patient: No
--- NOTE | 2018-03-06 15:55 | PN ---
Progress Note, Physician History of Present Illness: patient stable no complaints on nasal cannula patient for stent placement tomorrow - Current Medication List Current Medications: Active Medications Acetaminophen (Tylenol -) 650 mg PO Q4H PRN PRN Reason: FEVER Amino Acids (Prosource No Carb Liquid Pkt) 30 ml PO BID@0800,1730 [facility] Benzocaine/Menthol (Cepacol Lozenge -) 1 each MM PRN PRN PRN Reason: SORE THROAT Chlorhexidine Gluconate (Hibiclens For Decolonization -) 1 applic TP HS [facility] Diphenhydramine HCl (Benadryl Injection -) 12.5 mg IVPUSH ONCE PRN PRN Reason: FOR ITCHING Heparin Sodium (Porcine) (Heparin -) 5,000 unit IVPUSH PRN PRN PRN Reason: Heparin Heparin Sodium (Porcine) (Heparin -) 1,000 unit IVPUSH PRN PRN PRN Reason: Heparin Fluconazole (Diflucan 200 Mg/Ns Premixed Ivpb -) 100 mls @ 100 mls/hr IVPB DAILY [facility] HEPARIN SOD,PORK IN 0.45% NACL (Heparin-1/2ns 25,000 Units/500) 25,000 units in 500 mls @ 20 mls/hr IVPB TITR JERED; Protocol Last Admin: 03/06/18 14:56 Dose: 1,200 units/hr, 24 mls/hr Lactated Ringer's (Lactated Ringers Solution) 1,000 ml in 1,000 mls @ 75 mls/ hr IV ASDIR JERED Piperacillin Sod/Tazobactam (Sod 3.375 gm/ Dextrose) 50 mls @ 100 mls/hr IVPB Q8H-IV JERED; Protocol Piperacillin Sod/Tazobactam (Sod 3.375 gm/ Dextrose) 50 mls @ 100 mls/hr IVPB Q8H-IV JERED; Protocol Stop: 03/07/18 10:29 Levothyroxine Sodium (Synthroid -) 112 mcg PO DAILY@0700 [facility] Mupirocin (Bactroban Ointment (For Decolonization) -) 1 applic NS BID [facility] Stop: 03/11/18 21:59 Ondansetron HCl (Zofran Injection) 8 mg IVPB Q8H PRN PRN Reason: NAUSEA Pantoprazole Sodium (Protonix -) 40 mg PO DAILY [facility] Promethazine HCl (Phenergan Injection -) 12.5 mg IVPB Q6H PRN PRN Reason: NAUSEA-FOR RESCUE AFTER 15 MIN Simethicone (Mylicon -) 80 mg PO Q4H PRN PRN Reason: GAS - Objective Vital Signs: Vital Signs Temperature 97.6 F 03/06/18 14:00 Pulse Rate 76 03/06/18 14:35 Respiratory Rate 18 03/06/18 14:35 Blood Pressure 102/66 03/06/18 14:35 O2 Sat by Pulse Oximetry (%) 99 03/06/18 07:26 Constitutional: Yes: No Distress, Calm Cardiovascular: Yes: S1, S2 Respiratory: Yes: Regular, CTA Bilaterally, On Nasal O2 Gastrointestinal: Yes: Normal Bowel Sounds, Soft, Other (colostomy in place) Genitourinary: Yes: Other (urostomy in place) Musculoskeletal: Yes: WNL Extremities: Yes: WNL Labs: CBC, BMP 03/06/18 05:30 03/06/18 05:30 INR, PTT INR 1.33 (0.83-1.09) H 02/21/18 20:30 - ....Imaging Chest X-ray: Report Reviewed, Image Reviewed Assessment/Plan Problem List - Problems (1) Neoplasm of sigmoid colon Code(s): D49.0 - NEOPLASM OF UNSPECIFIED BEHAVIOR OF DIGESTIVE SYSTEM (2) Sigmoid thickening Code(s): K63.9 - DISEASE OF INTESTINE, UNSPECIFIED (3) Abdominal pain Code(s): R10.9 - UNSPECIFIED ABDOMINAL PAIN Qualifiers: Abdominal location: left lower quadrant Qualified Code(s): R10.32 - Left lower quadrant pain (4) Abnormal colonoscopy Code(s): R93.3 - ABNORMAL FINDINGS ON DX IMAGING OF PRT DIGESTIVE TRACT fever abd distension DVT ? pe ureteral tear left s/p ext nephrostomy plan continue current mgmt abx await for stent placement rest as per the team monitor for resp failure rest as per icu patient improving cc 38 min
[2018-03-06] MEDS: LACTATED RINGERS SOLUTION 1,000 ML/1,000 ML INFUS.BAG IV SCH (16:23)
--- NOTE | 2018-03-06 16:25 | PN ---
Progress Note, Physician Chief Complaint: abdominal pain and colon mass History of Present Illness: 57 yo male presenting to [facility] ER via private auto complaining of occasional lower left abdominal discomfort. stable post operatively after second laparotomy. Gas and air in the colostomy this morning, We were called to the bedside when the patinet was reporting more abdominal pain. He is noted to worseing distension despite left nephrostomy and mazariegos placement. Transferred to ICU after rapid response. Urinoma drained via ultrasound at the bedside. Since then he has been more stable. - Current Medication List Current Medications: Active Medications Acetaminophen (Tylenol -) 650 mg PO Q4H PRN PRN Reason: FEVER Amino Acids (Prosource No Carb Liquid Pkt) 30 ml PO BID@0800,1730 [facility] Benzocaine/Menthol (Cepacol Lozenge -) 1 each MM PRN PRN PRN Reason: SORE THROAT Chlorhexidine Gluconate (Hibiclens For Decolonization -) 1 applic TP HS JERED Diphenhydramine HCl (Benadryl Injection -) 12.5 mg IVPUSH ONCE PRN PRN Reason: FOR ITCHING Heparin Sodium (Porcine) (Heparin -) 5,000 unit IVPUSH PRN PRN PRN Reason: Heparin Heparin Sodium (Porcine) (Heparin -) 1,000 unit IVPUSH PRN PRN PRN Reason: Heparin Fluconazole (Diflucan 200 Mg/Ns Premixed Ivpb -) 100 mls @ 100 mls/hr IVPB DAILY [facility] HEPARIN SOD,PORK IN 0.45% NACL (Heparin-1/2ns 25,000 Units/500) 25,000 units in 500 mls @ 20 mls/hr IVPB TITR JERED; Protocol Last Admin: 03/06/18 14:56 Dose: 1,200 units/hr, 24 mls/hr Lactated Ringer's (Lactated Ringers Solution) 1,000 ml in 1,000 mls @ 75 mls/ hr IV ASDIR JERED Piperacillin Sod/Tazobactam (Sod 3.375 gm/ Dextrose) 50 mls @ 100 mls/hr IVPB Q8H-IV [facility]ERED; Protocol Piperacillin Sod/Tazobactam (Sod 3.375 gm/ Dextrose) 50 mls @ 100 mls/hr IVPB Q8H-IV JERED; Protocol Stop: 03/07/18 10:29 Levothyroxine Sodium (Synthroid -) 112 mcg PO DAILY@0700 [facility] Mupirocin (Bactroban Ointment (For Decolonization) -) 1 applic NS BID [facility] Stop: 03/11/18 21:59 Ondansetron HCl (Zofran Injection) 8 mg IVPB Q8H PRN PRN Reason: NAUSEA Pantoprazole Sodium (Protonix -) 40 mg PO DAILY [facility] Promethazine HCl (Phenergan Injection -) 12.5 mg IVPB Q6H PRN PRN Reason: NAUSEA-FOR RESCUE AFTER 15 MIN Simethicone (Mylicon -) 80 mg PO Q4H PRN PRN Reason: GAS - Objective Vital Signs: Vital Signs Temperature 97.6 F 03/06/18 14:00 Pulse Rate 68 03/06/18 16:00 Respiratory Rate 18 03/06/18 16:00 Blood Pressure 114/72 03/06/18 16:00 O2 Sat by Pulse Oximetry (%) 99 03/06/18 07:26 Vital Signs Period Temp Pulse Resp BP Sys/Cavanaugh Pulse Ox Last 24 Hr 98 F-98.5 F 63-73 18-20 113-128/63-75 Constitutional: Yes: Well Nourished, No Distress, Calm Eyes: Yes: Conjunctiva Clear, EOM Intact HENT: Yes: Atraumatic, Normocephalic Neck: Yes: Supple, Trachea Midline Cardiovascular: Yes: Regular Rate and Rhythm, S1, S2 Respiratory: Yes: Regular, CTA Bilaterally Gastrointestinal: Yes: Normal Bowel Sounds, Soft, Abdomen, Obese. No: Tenderness ...Rectal Exam: Yes: Deferred Genitourinary: No: CVA Tenderness - Left, CVA Tenderness - Right Musculoskeletal: No: Muscle Pain, Muscle Weakness Extremities: No: Cool, Cyanosis Edema: No Peripheral Pulses WNL: Yes Peripheral Pulses: Left Radial: 2+, Right Radial: 2+, Left Doralis Pedis: 2+, Right Dorsalis Pedis: 2+ Wound/Incision: Yes: Clean/Dry, Dressing Dry and Intact, Unapproximated Neurological: Yes: Alert, Oriented Psychiatric: Yes: Alert, Oriented Labs: CBC, BMP 03/06/18 05:30 03/06/18 05:30 INR, PTT INR 1.33 (0.83-1.09) H 02/21/18 20:30 Problem List - Problems (1) Neoplasm of sigmoid colon Assessment/Plan: POD#20 s/p sigmoid colectomy and primary anastomosis (due to sigmoid colon cancer) POD#13 s/p completion left colectomy and amado's (due to perforated diverticulum distal to anatomosis) Plan for Cystoscopy tomorrow by urology ICu managemnt clear liquid diet and advance as tolerated and appropriate based on planned procedure IVF hydration replete electrolytes - calcium antiemetic OOB and ambulate encourage IS family discussion is in order, with daughter will follow This patient is critically ill. Time spent reviewing chart, examining patient, talking with providers and/or family and documentation is 35 minutes. Code(s): D49.0 - NEOPLASM OF UNSPECIFIED BEHAVIOR OF DIGESTIVE SYSTEM (2) Sigmoid thickening Code(s): K63.9 - DISEASE OF INTESTINE, UNSPECIFIED (3) Abdominal pain Code(s): R10.9 - UNSPECIFIED ABDOMINAL PAIN Qualifiers: Qualified Code(s): R10.32 - Left lower quadrant pain (4) Abnormal colonoscopy Code(s): R93.3 - ABNORMAL FINDINGS ON DX IMAGING OF PRT DIGESTIVE TRACT
[2018-03-06] MEDS ORDERED: AMINO ACIDS/PROTEIN HYDROLYS 30 ML LIQUID.PKT PO SCH (17:30)
[2018-03-06] MEDS ORDERED: PIPERACILLIN/TAZOB 3.375 GM 3.375 GM in DEXTROSE 5%-WATER - 50 ML IVPB SCH (18:00)
[2018-03-06] MEDS ORDERED: CHLORHEXIDINE GLUCONATE 4% CLEANSER FOR DECOLONIZATION TP SCH (22:00)
[2018-03-06] MEDS ORDERED: MUPIROCIN 2% TOPICAL OINTMENT FOR DECOLONIZATION NS SCH (22:00)
[2018-03-06] MEDS: CHLORHEXIDINE GLUCONATE 4% CLEANSER FOR DECOLONIZATION TP SCH (22:30)
[2018-03-07] MEDS ORDERED: PIPERACILLIN/TAZOBACTAM 3.375 GM VIAL IVPB ONE ×2 (01:18→08:57)
[2018-03-07] MEDS ORDERED: DEXTROSE 5%-WATER - 50 ML IVPB ONE ×2 (01:18→08:57)
[2018-03-07] MEDS: PIPERACILLIN/TAZOB 3.375 GM 3.375 GM in DEXTROSE 5%-WATER - 50 ML IVPB SCH ×2 (01:20→09:05)
[2018-03-07 06:18] LABS: BASO % 0.5 % (0-2.0); HEMATOCRIT 27.6 % (35.4-49); HEMOGLOBIN 8.9 GM/dL (11.7-16.9); LYMPH % 19.9 % (8-40); MCH 27.2 pg (25.7-33.7); MCHC 32.5 g/dl (32.0-35.9); MEAN CELL VOLUME 83.9 fl (80-96); MEAN PLT VOLUME 6.8 fl (7.5-11.1); MONO % 8.3 % (3.8-10.2); NEUT % 69.3 % (42.8-82.8); PLATELET COUNT 347 K/MM3 (134-434); RBC 3.29 M/mm3 (4.00-5.60); RDW 20.4 % (11.9-15.9); WHITE BLOOD COUNT 5.3 K/mm3 (4.0-10.0)
[2018-03-07] MEDS: LEVOTHYROXINE NA 112 MCG TABLET (FP) PO SCH (06:25)
[2018-03-07 06:47] LABS: ALBUMIN 1.8 g/dl (3.4-5.0); ALK PHOS 146 U/L (45-117); ANION GAP 5 MMOL/L (8-16); BILIRUBIN,TOTAL 0.3 mg/dL (0.2-1); BLOOD UREA NITROGEN 6 mg/dL (7-18); CALCIUM 7.5 mg/dL (8.5-10.1); CHLORIDE 106 mmol/L (98-107); CO2 30 mmol/L (21-32); CREATININE 0.6 mg/dL (0.55-1.3); GLUCOSE,RANDOM 93 mg/dL (74-106); MAGNESIUM 2.2 mg/dL (1.8-2.4); PHOSPHOROUS 3.6 mg/dL (2.5-4.9); POTASSIUM 4.2 mmol/L (3.5-5.1); SGOT/AST 16 U/L (15-37); SGPT/ALT 30 U/L (13-61); SODIUM 141 mmol/L (136-145); TOT PROT 5.7 g/dl (6.4-8.2)
[2018-03-07] MEDS ORDERED: LEVOTHYROXINE NA 112 MCG TABLET (FP) PO SCH (07:00)
[2018-03-07] MEDS: AMINO ACIDS/PROTEIN HYDROLYS 30 ML LIQUID.PKT PO SCH ×2 (08:49→16:32)
[2018-03-07] MEDS ORDERED: PT OWN MED DRAWER 7, Y5N ONE ×2 (08:59→17:12)
[2018-03-07] MEDS: PANTOPRAZOLE 40 MG TABLET (FP) PO SCH (09:03)
[2018-03-07] MEDS: MUPIROCIN 2% TOPICAL OINTMENT FOR DECOLONIZATION NS SCH ×2 (09:03→22:00)
[2018-03-07] MEDS: FLUCONAZOLE 200 MG/NS 100 ML IVPB SCH (09:04)
[2018-03-07] MEDS ORDERED: PANTOPRAZOLE 40 MG TABLET (FP) PO SCH (10:00)
[2018-03-07] MEDS ORDERED: FLUCONAZOLE 200 MG/NS 100 ML IVPB SCH (10:00)
[2018-03-07] MEDS ORDERED: PROPOFOL 20 ML ONE (12:34)
[2018-03-07] MEDS ORDERED: LIDOCAINE HCL/PF 2% SDV 5ML VIAL ONE (12:34)
[2018-03-07] MEDS ORDERED: MIDAZOLAM HCL 2 MG/2 ML SINGLE DOSE VIAL ONE (12:34)
--- NOTE | 2018-03-07 12:34 | PN ---
Teaching Attending Note Name of Resident: Lilly Calvillo ATTENDING PHYSICIAN STATEMENT I saw and evaluated the patient. I reviewed the resident's note and discussed the case with the resident. I agree with the resident's findings and plan as documented. SUBJECTIVE: Patient seen and examined in the ICU. Awake and alert on NC O2. No CP or SOB. Denies CP or SOB. For OR today. OBJECTIVE: Intake & Output 03/04/18 03/05/18 03/06/18 03/07/18 23:59 23:59 23:59 23:59 Intake Total 2552 3821 2881 750 Output Total 5200 5650 4540 1925 Balance -2648 -1829 -1659 -1175 Weight 197 lb 5.019 oz Last Vital Signs Temp Pulse Resp BP Pulse Ox 98.8 F 69 20 100/57 L 99 03/07/18 10:00 03/07/18 12:00 03/07/18 12:00 03/07/18 12:00 03/07/18 08:00 Active Medications Acetaminophen (Tylenol -) 650 mg PO Q4H PRN PRN Reason: FEVER Amino Acids (Prosource No Carb Liquid Pkt) 30 ml PO BID@0800,1730 [facility] Last Admin: 03/07/18 08:49 Dose: Not Given Benzocaine/Menthol (Cepacol Lozenge -) 1 each MM PRN PRN PRN Reason: SORE THROAT Chlorhexidine Gluconate (Hibiclens For Decolonization -) 1 applic TP HS [facility] Last Admin: 03/06/18 22:30 Dose: 1 applic Diphenhydramine HCl (Benadryl Injection -) 12.5 mg IVPUSH ONCE PRN PRN Reason: FOR ITCHING Heparin Sodium (Porcine) (Heparin -) 5,000 unit IVPUSH PRN PRN PRN Reason: Heparin Heparin Sodium (Porcine) (Heparin -) 1,000 unit IVPUSH PRN PRN PRN Reason: Heparin Fluconazole (Diflucan 200 Mg/Ns Premixed Ivpb -) 100 mls @ 100 mls/hr IVPB DAILY [facility] Last Admin: 03/07/18 09:04 Dose: 100 mls/hr HEPARIN SOD,PORK IN 0.45% NACL (Heparin-1/2ns 25,000 Units/500) 25,000 units in 500 mls @ 20 mls/hr IVPB TITR [facility]; Protocol Last Admin: 03/06/18 14:56 Dose: 1,200 units/hr, 24 mls/hr Lactated Ringer's (Lactated Ringers Solution) 1,000 ml in 1,000 mls @ 75 mls/ hr IV ASDIR [facility] Last Admin: 03/06/18 16:23 Dose: 75 mls/hr Piperacillin Sod/Tazobactam (Sod 3.375 gm/ Dextrose) 50 mls @ 100 mls/hr IVPB Q8H-IV [facility]; Protocol Levothyroxine Sodium (Synthroid -) 112 mcg PO DAILY@0700 [facility] Last Admin: 03/07/18 06:25 Dose: Not Given Mupirocin (Bactroban Ointment (For Decolonization) -) 1 applic NS BID [facility] Stop: 03/11/18 21:59 Last Admin: 03/07/18 09:03 Dose: 1 applic Ondansetron HCl (Zofran Injection) 8 mg IVPB Q8H PRN PRN Reason: NAUSEA Pantoprazole Sodium (Protonix -) 40 mg PO DAILY [facility] Last Admin: 03/07/18 09:03 Dose: Not Given Promethazine HCl (Phenergan Injection -) 12.5 mg IVPB Q6H PRN PRN Reason: NAUSEA-FOR RESCUE AFTER 15 MIN Simethicone (Mylicon -) 80 mg PO Q4H PRN PRN Reason: GAS Gen: NAD on NC O2 Heart: RRR Lung: basilar rhonchi Abd: soft, nontender, +ostomy with air in bag, Left nephrostomy, nephrostomy drain intact Ext: + edema Laboratory Results - last 24 hr 03/07/18 03/07/18 03/07/18 05:30 05:30 05:30 WBC 5.3 RBC 3.29 L Hgb 8.9 L Hct 27.6 L MCV 83.9 MCH 27.2 MCHC 32.5 RDW 20.4 H Plt Count 347 MPV 6.8 L Absolute Neuts (auto) 3.7 Neutrophils % 69.3 Lymphocytes % 19.9 D Monocytes % 8.3 Eosinophils % 2.0 Basophils % 0.5 Nucleated RBC % 0 PTT (Actin FS) 65.1 H Sodium 141 Potassium 4.2 Chloride 106 Carbon Dioxide 30 Anion Gap 5 L BUN 6 L Creatinine 0.6 Creat Clearance w eGFR > 60 Random Glucose 93 Calcium 7.5 L Phosphorus 3.6 Magnesium 2.2 Total Bilirubin 0.3 AST 16 ALT 30 Alkaline Phosphatase 146 H Total Protein 5.7 L Albumin 1.8 L ASSESSMENT AND PLAN: Colon CA Newly diagnosed DVT: (?) PE: (+) moderate elevation in RSVP on ECHO s/p Sigmoid Colectomy 02/14 Post op Fecal Peritonitis/Perforated Diverticulum s/p ex-lap/abdominal washout/Left Colectomy/End Colostomy Lone vs Paroxysmal Atrial Fibrillation Acute Hypoxic Respiratory Failure Volume Overload Left Ureteral Leak s/p Nephrostomy placement Intra-abdominal Abscess s/p IR drainage Septic Shock +Troponins likely Demand Ischemia Hypothyroidism - IV Heparin on hold for OR - ABX - monitor urine output, creatinine - pain control - incentive spirometry - O2 to keep Spo2 >90% - DVT prophylaxis - For OR today - 4W/4S monitoring Dr Rojo
--- NOTE | 2018-03-07 12:53 | PN ---
Physical Exam: SUBJECTIVE: Patient seen and examined Patient stable, no overnight events. OBJECTIVE: Vital Signs Period Temp Pulse Resp BP Sys/Cavanaugh Pulse Ox Last 24 Hr 97.6 F-98.8 F 62-84 14-20 93-114/57-73 98-99 GENERAL: The patient is awake, alert, and fully oriented, in no acute distress, on NC HEAD: Normal with no signs of trauma. EYES: PERRLA, extraocular movements NECK: Trachea midline, full range of motion LUNGS: Slightly coarse breath sounds bilaterally, no wheezes, no crackles, no accessory muscle use. HEART: Regular rate and rhythm, S1, S2 without murmur, rub or gallop. ABDOMEN: abdominal wound dressings, clean dry EXTREMITIES: 2+ pulses, warm, well-perfused, no edema. NEUROLOGICAL: Cranial nerves II through XII grossly intact. PSYCH: Normal mood, normal affect. SKIN: Warm, dry, normal turgor, no rashes or lesions noted Laboratory Results - last 24 hr 03/07/18 03/07/18 03/07/18 05:30 05:30 05:30 WBC 5.3 RBC 3.29 L Hgb 8.9 L Hct 27.6 L MCV 83.9 MCH 27.2 MCHC 32.5 RDW 20.4 H Plt Count 347 MPV 6.8 L Absolute Neuts (auto) 3.7 Neutrophils % 69.3 Lymphocytes % 19.9 D Monocytes % 8.3 Eosinophils % 2.0 Basophils % 0.5 Nucleated RBC % 0 PTT (Actin FS) 65.1 H Sodium 141 Potassium 4.2 Chloride 106 Carbon Dioxide 30 Anion Gap 5 L BUN 6 L Creatinine 0.6 Creat Clearance w eGFR > 60 Random Glucose 93 Calcium 7.5 L Phosphorus 3.6 Magnesium 2.2 Total Bilirubin 0.3 AST 16 ALT 30 Alkaline Phosphatase 146 H Total Protein 5.7 L Albumin 1.8 L Active Medications Generic Name Dose Route Start Last Admin Trade Name Freq PRN Reason Stop Dose Admin Acetaminophen 650 mg 03/06/18 12:53 Tylenol - PO Q4H PRN FEVER Amino Acids 30 ml 03/06/18 17:30 03/07/18 08:49 Prosource No Carb Liquid Pkt PO Not Given BID@0800,1730 [facility] Benzocaine/Menthol 1 each 03/06/18 12:53 Cepacol Lozenge - MM PRN PRN SORE THROAT Chlorhexidine Gluconate 1 applic 03/06/18 22:00 03/06/18 22:30 Hibiclens For Decolonization - TP 1 applic HS [facility] Administration Diphenhydramine HCl 12.5 mg 03/06/18 12:53 Benadryl Injection - IVPUSH ONCE PRN FOR ITCHING Heparin Sodium (Porcine) 5,000 unit 03/06/18 12:53 Heparin - IVPUSH PRN PRN Heparin Heparin Sodium (Porcine) 1,000 unit 03/06/18 12:53 Heparin - IVPUSH PRN PRN Heparin Fluconazole 100 mls @ 100 mls/hr 03/07/18 10:00 03/07/18 09:04 Diflucan 200 Mg/Ns Premixed Ivpb - IVPB 100 mls/hr DAILY [facility] Administration HEPARIN SOD,PORK IN 0.45% NACL 25,000 units in 500 mls @ 20 mls/hr 03/06/18 13 :30 03/06/18 14:56 Heparin-1/2ns 25,000 Units/500 IVPB 1,200 units/hr TITR [facility] 24 mls/hr Administration Protocol 1,000 UNITS/HR Lactated Ringer's 1,000 ml in 1,000 mls @ 75 mls/hr 03/06/18 12:53 03/06/18 16:23 Lactated Ringers Solution IV 75 mls/hr ASDIR [facility] Administration Piperacillin Sod/Tazobactam 50 mls @ 100 mls/hr 03/06/18 18:00 Sod 3.375 gm/ Dextrose IVPB Q8H-IV [facility] Protocol Levothyroxine Sodium 112 mcg 03/07/18 07:00 03/07/18 06:25 Synthroid - PO Not Given DAILY@0700 [facility] Mupirocin 1 applic 03/06/18 22:00 03/07/18 09:03 Bactroban Ointment (For Decolonization) - NS 03/11/18 21:59 1 applic BID [facility] Administration Ondansetron HCl 8 mg 03/06/18 12:53 Zofran Injection IVPB Q8H PRN NAUSEA Pantoprazole Sodium 40 mg 03/07/18 10:00 03/07/18 09:03 Protonix - PO Not Given DAILY [facility] Promethazine HCl 12.5 mg 03/06/18 12:53 Phenergan Injection - IVPB Q6H PRN NAUSEA-FOR RESCUE AFTER 15 MIN Simethicone 80 mg 03/06/18 12:53 Mylicon - PO Q4H PRN GAS ASSESSMENT/PLAN: 57 year old man with history of hypothyroidism, Afib w/ RVR stage 1 colon cancer with Sue procedure performed 02/22 (Dr. Ventura). Patient with urine leak from abdominal site (02/26) found to have L sided ureteral extravasation with L nephrostomy tube placement (02/28). Brought to ICU s/p rapid response with tachycardia, hypotension and respiratory distress, satting into the 70s. Required NRB. Rhythm maintained sinus tachycardia and patient did not go into Afib w. RVR. Patient found to have LLE DVT with R heart strain on ECHO concerning for PE. PLAN Pulm Likely pulmonary embolism - ECHO (03/03) w/ R heart strain - pt unstable for CTA - Heparin held today at 0600 for OR ureteral stent - saturating above 92% on NC - Early ambulation, IS - Repeat CXR Cardiac Tachycardia w/ hypotension during rapid response, pmhx Afib w/ RVR - elevated troponins down trending likely 2/2 demand - RIJ central line placed 03/01 - will remove today after OR Renal L ureteral extravasation s/p abdominal surgery, w/ L nephrostomy tube placement - 02/26: flush of urine from the abdomen, concerning for bladder or ureteral injury w/ CT Urogram showing left sided distal ureteral blush of contrast. - L nephrostomy tube placed 02/28 - Mazariegos - monitor urine output - plan for ureteral stent placement today ID GI abscess, feculent peritonitis 2/2 perforated diverticulum, urine leak w/ leukocytosis Rapid response possibly due to septic shock 2/2 urine leak w/in the abdomen - Blood cultures (02/17) - without growth - Abscess culture (02/20) - lactose fermenting gram neg bacilli, coag pos staph , yeast - Per ID: Zosyn, Diflucan - Tylenol PRN for fever Oncology Stage 1 Colon CA - Sue procedure - Followed by pathology and oncology. Endo Hypothyroidism - TSH within normal - Levothyroxine home med Analgesia - Oxycodone 5mg Q6H PRN F/E/N - CLD, NPO after midnight for urology OR - d/c fluids 2/2 concern over fluid overload GI ppx - Protonix 40mg daily DVT ppx - held for OR today Lines, Tubes: mazariegos, IR uroma drain, L nephrostomy drain, RIJ central access() Dispo: Transfer to telemetry Visit type - Emergency Visit Emergency Visit: No - New Patient This patient is new to me today: No - Critical Care Critical Care patient: No
--- NOTE | 2018-03-07 13:52 | PN ---
Physical Exam: SUBJECTIVE: Patient seen and examined at bedside. no acute events overnight; patient is doing well. denies any CP/SOB/N/V fevers or chills. going for stent placement and revision this morning. OBJECTIVE: Vital Signs Period Temp Pulse Resp BP Sys/Cavanaugh Pulse Ox Last 24 Hr 97.6 F-98.8 F 62-84 14-20 93-114/57-73 98-99 GENERAL: The patient is awake, alert, and fully oriented, in no acute distress. EYES:no scleral icterus NECK: no JVD, no lypmhadenpathy LUNGS: CTA B/L; no rales, rhonchi or wheezing. HEART: Regular rate and rhythm, S1, S2 without murmur, rub or gallop. ABDOMEN: Soft, nontender, nondistended, normoactive bowel sounds, no guarding, no rebound, no hepatosplenomegaly, no masses. L urostomy and nephrostomy tube EXTREMITIES: 2+ pulses, warm, well-perfused, trace edema. SKIN: Warm, dry, normal turgor, no rashes or lesions noted Laboratory Results - last 24 hr 02/23/18 02/23/18 03/07/18 13:09 13:09 05:30 WBC RBC Hgb Hct MCV MCH MCHC RDW Plt Count MPV Absolute Neuts (auto) Neutrophils % Lymphocytes % Monocytes % Eosinophils % Basophils % Nucleated RBC % PTT (Actin FS) 65.1 H Sodium Potassium Chloride Carbon Dioxide Anion Gap BUN Creatinine Creat Clearance w eGFR Random Glucose Calcium Phosphorus Magnesium Iron Cancelled TIBC Cancelled Iron Saturation Cancelled Ferritin 286.9 Total Bilirubin AST ALT Alkaline Phosphatase Total Protein Albumin Vitamin B12 278 03/07/18 03/07/18 05:30 05:30 WBC 5.3 RBC 3.29 L Hgb 8.9 L Hct 27.6 L MCV 83.9 MCH 27.2 MCHC 32.5 RDW 20.4 H Plt Count 347 MPV 6.8 L Absolute Neuts (auto) 3.7 Neutrophils % 69.3 Lymphocytes % 19.9 D Monocytes % 8.3 Eosinophils % 2.0 Basophils % 0.5 Nucleated RBC % 0 PTT (Actin FS) Sodium 141 Potassium 4.2 Chloride 106 Carbon Dioxide 30 Anion Gap 5 L BUN 6 L Creatinine 0.6 Creat Clearance w eGFR > 60 Random Glucose 93 Calcium 7.5 L Phosphorus 3.6 Magnesium 2.2 Iron TIBC Iron Saturation Ferritin Total Bilirubin 0.3 AST 16 ALT 30 Alkaline Phosphatase 146 H Total Protein 5.7 L Albumin 1.8 L Vitamin B12 Active Medications Generic Name Dose Route Start Last Admin Trade Name Freq PRN Reason Stop Dose Admin Acetaminophen 650 mg 03/06/18 12:53 Tylenol - PO Q4H PRN FEVER Amino Acids 30 ml 03/06/18 17:30 03/07/18 08:49 Prosource No Carb Liquid Pkt PO Not Given BID@0800,1730 [facility] Benzocaine/Menthol 1 each 03/06/18 12:53 Cepacol Lozenge - MM PRN PRN SORE THROAT Chlorhexidine Gluconate 1 applic 03/06/18 22:00 03/06/18 22:30 Hibiclens For Decolonization - TP 1 applic HS [facility] Administration Diphenhydramine HCl 12.5 mg 03/06/18 12:53 Benadryl Injection - IVPUSH ONCE PRN FOR ITCHING Heparin Sodium (Porcine) 5,000 unit 03/06/18 12:53 Heparin - IVPUSH PRN PRN Heparin Heparin Sodium (Porcine) 1,000 unit 03/06/18 12:53 Heparin - IVPUSH PRN PRN Heparin Fluconazole 100 mls @ 100 mls/hr 03/07/18 10:00 03/07/18 09:04 Diflucan 200 Mg/Ns Premixed Ivpb - IVPB 100 mls/hr DAILY [facility] Administration HEPARIN SOD,PORK IN 0.45% NACL 25,000 units in 500 mls @ 20 mls/hr 03/06/18 13 :30 03/06/18 14:56 Heparin-1/2ns 25,000 Units/500 IVPB 1,200 units/hr TITR [facility] 24 mls/hr Administration Protocol 1,000 UNITS/HR Lactated Ringer's 1,000 ml in 1,000 mls @ 75 mls/hr 03/06/18 12:53 03/06/18 16:23 Lactated Ringers Solution IV 75 mls/hr ASDIR [facility] Administration Piperacillin Sod/Tazobactam 50 mls @ 100 mls/hr 03/06/18 18:00 Sod 3.375 gm/ Dextrose IVPB Q8H-IV [facility] Protocol Levothyroxine Sodium 112 mcg 03/07/18 07:00 03/07/18 06:25 Synthroid - PO Not Given DAILY@0700 [facility] Mupirocin 1 applic 03/06/18 22:00 03/07/18 09:03 Bactroban Ointment (For Decolonization) - NS 03/11/18 21:59 1 applic BID [facility] Administration Ondansetron HCl 8 mg 03/06/18 12:53 Zofran Injection IVPB Q8H PRN NAUSEA Pantoprazole Sodium 40 mg 03/07/18 10:00 03/07/18 09:03 Protonix - PO Not Given DAILY [facility] Promethazine HCl 12.5 mg 03/06/18 12:53 Phenergan Injection - IVPB Q6H PRN NAUSEA-FOR RESCUE AFTER 15 MIN Simethicone 80 mg 03/06/18 12:53 Mylicon - PO Q4H PRN GAS ASSESSMENT/PLAN: 57 year old man with history of hypothyroidism, Afib w/ RVR stage 1 colon cancer with Sue procedure performed 02/22 (Dr. Ventura). Patient with urine leak from abdominal site (02/26) found to have L sided ureteral extravasation with L nephrostomy tube placement (02/28). PLAN #Septic Shock possibly 2/2 urine leak -Maps were in 60's-70's overnight -CX negative -current abx as per ID; day 4 of zosyn and diflucan -monitor hemodynamics -patient found to have RV strain on echo- suggestive of PE; currently on heparin drip - ? if needs thrombectomy- if not will switch over to full dose lovenox after patient has stent procedure ; CTA ordered #GI Abcess with urine leak and leukocytosis - Blood cultures (02/17) - without growth - Abscess culture (02/20) - lactose fermenting gram neg bacilli, coag pos staph , yeast - Per ID: Zosyn, Diflucan (for yeast growth) day 5 - Tylenol PRN for fever #Ureteral Extravasation with nephrostomy tube placementt. - L nephrostomy tube placed 02/28 - Lentz - monitor urine output -ab/pelvis CT pending -pateint going for repeat stent surgery this morning #Colon Ca s/p Harrtmanns procedure -f/u pathology -f/u oncology recs #Hypothyroidism -TSH within normal limits c/w home dose of levothyroxine F/E/N -monitor electrolyres - 1L LR @ 75ml/hr - full liquid diet however NPO aftr midnight GI ppx - Protonix 40mg daily DVT ppx - heparin drip . Problem List - Problems (1) Abdominal pain Code(s): R10.9 - UNSPECIFIED ABDOMINAL PAIN Qualifiers: Abdominal location: left lower quadrant Qualified Code(s): R10.32 - Left lower quadrant pain (2) Abnormal colonoscopy Code(s): R93.3 - ABNORMAL FINDINGS ON DX IMAGING OF PRT DIGESTIVE TRACT (3) Afib Code(s): I48.91 - UNSPECIFIED ATRIAL FIBRILLATION (4) Left ureteral injury Code(s): S37.10XA - UNSPECIFIED INJURY OF URETER, INITIAL ENCOUNTER Visit type - Emergency Visit Emergency Visit: Yes ED Registration Date: 02/13/18 Care time: The patient presented to the Emergency Department on the above date and was hospitalized for further evaluation of their emergent condition. - New Patient This patient is new to me today: No - Critical Care Critical Care patient: No
--- NOTE | 2018-03-07 15:12 | PN ---
Progress Note, Physician History of Present Illness: stable today no complaints breathing better - Current Medication List Current Medications: Active Medications Acetaminophen (Tylenol -) 650 mg PO Q4H PRN PRN Reason: FEVER Amino Acids (Prosource No Carb Liquid Pkt) 30 ml PO BID@0800,1730 [facility] Benzocaine/Menthol (Cepacol Lozenge -) 1 each MM PRN PRN PRN Reason: SORE THROAT Chlorhexidine Gluconate (Hibiclens For Decolonization -) 1 applic TP HS [facility] Last Admin: 03/06/18 22:30 Dose: 1 applic Diphenhydramine HCl (Benadryl Injection -) 12.5 mg IVPUSH ONCE PRN PRN Reason: FOR ITCHING Heparin Sodium (Porcine) (Heparin -) 5,000 unit IVPUSH PRN PRN PRN Reason: Heparin Heparin Sodium (Porcine) (Heparin -) 1,000 unit IVPUSH PRN PRN PRN Reason: Heparin Fluconazole (Diflucan 200 Mg/Ns Premixed Ivpb -) 100 mls @ 100 mls/hr IVPB DAILY [facility] Last Admin: 03/07/18 09:04 Dose: 100 mls/hr HEPARIN SOD,PORK IN 0.45% NACL (Heparin-1/2ns 25,000 Units/500) 25,000 units in 500 mls @ 20 mls/hr IVPB TITR [facility]; Protocol Last Admin: 03/06/18 14:56 Dose: 1,200 units/hr, 24 mls/hr Lactated Ringer's (Lactated Ringers Solution) 1,000 ml in 1,000 mls @ 75 mls/ hr IV ASDIR [facility] Last Admin: 03/06/18 16:23 Dose: 75 mls/hr Piperacillin Sod/Tazobactam (Sod 3.375 gm/ Dextrose) 50 mls @ 100 mls/hr IVPB Q8H-IV [facility]; Protocol Levothyroxine Sodium (Synthroid -) 112 mcg PO DAILY@0700 [facility] Last Admin: 03/07/18 06:25 Dose: Not Given Mupirocin (Bactroban Ointment (For Decolonization) -) 1 applic NS BID [facility] Stop: 03/11/18 21:59 Last Admin: 03/07/18 09:03 Dose: 1 applic Ondansetron HCl (Zofran Injection) 8 mg IVPB Q8H PRN PRN Reason: NAUSEA Pantoprazole Sodium (Protonix -) 40 mg PO DAILY [facility] Last Admin: 03/07/18 09:03 Dose: Not Given Promethazine HCl (Phenergan Injection -) 12.5 mg IVPB Q6H PRN PRN Reason: NAUSEA-FOR RESCUE AFTER 15 MIN Simethicone (Mylicon -) 80 mg PO Q4H PRN PRN Reason: GAS - Objective Vital Signs: Vital Signs Temperature 97.8 F 03/07/18 15:00 Pulse Rate 68 03/07/18 15:00 Respiratory Rate 18 03/07/18 15:00 Blood Pressure 106/67 03/07/18 15:00 O2 Sat by Pulse Oximetry (%) 97 03/07/18 15:00 Constitutional: Yes: Calm, Mild Distress Cardiovascular: Yes: Regular Rate and Rhythm Respiratory: Yes: On Nasal O2, Poor Air Entry Gastrointestinal: Yes: Normal Bowel Sounds, Soft Musculoskeletal: Yes: WNL Extremities: Yes: WNL Neurological: Yes: Alert, Oriented Psychiatric: Yes: Alert, Oriented Labs: CBC, BMP 03/07/18 05:30 03/07/18 05:30 INR, PTT INR 1.33 (0.83-1.09) H 02/21/18 20:30 Assessment/Plan Problem List - Problems (1) Neoplasm of sigmoid colon Code(s): D49.0 - NEOPLASM OF UNSPECIFIED BEHAVIOR OF DIGESTIVE SYSTEM (2) Sigmoid thickening Code(s): K63.9 - DISEASE OF INTESTINE, UNSPECIFIED (3) Abdominal pain Code(s): R10.9 - UNSPECIFIED ABDOMINAL PAIN Qualifiers: Abdominal location: left lower quadrant Qualified Code(s): R10.32 - Left lower quadrant pain (4) Abnormal colonoscopy Code(s): R93.3 - ABNORMAL FINDINGS ON DX IMAGING OF PRT DIGESTIVE TRACT fever abd distension DVT ? pe ureteral tear left s/p ext nephrostomy in view of patients hypotension,close watch on the the patient ,as patient might have infection plan continue abx close watch monitor drainage resp support rest as per icu cc 40 min
--- NOTE | 2018-03-07 15:46 | PN ---
Progress Note, Physician Chief Complaint: abdominal pain and colon mass History of Present Illness: 57 yo male presenting to [facility] ER via private auto complaining of occasional lower left abdominal discomfort. stable post operatively after second laparotomy. Gas and air in the colostomy this morning, We were called to the bedside when the patinet was reporting more abdominal pain. He is noted to worseing distension despite left nephrostomy and mazariegos placement. Transferred to ICU after rapid response. Urinoma drained via ultrasound at the bedside. Since then he has been more stable. - Current Medication List Current Medications: Active Medications Acetaminophen (Tylenol -) 650 mg PO Q4H PRN PRN Reason: FEVER Amino Acids (Prosource No Carb Liquid Pkt) 30 ml PO BID@0800,1730 [facility] Benzocaine/Menthol (Cepacol Lozenge -) 1 each MM PRN PRN PRN Reason: SORE THROAT Chlorhexidine Gluconate (Hibiclens For Decolonization -) 1 applic TP HS [facility] Last Admin: 03/06/18 22:30 Dose: 1 applic Diphenhydramine HCl (Benadryl Injection -) 12.5 mg IVPUSH ONCE PRN PRN Reason: FOR ITCHING Heparin Sodium (Porcine) (Heparin -) 5,000 unit IVPUSH PRN PRN PRN Reason: Heparin Heparin Sodium (Porcine) (Heparin -) 1,000 unit IVPUSH PRN PRN PRN Reason: Heparin Fluconazole (Diflucan 200 Mg/Ns Premixed Ivpb -) 100 mls @ 100 mls/hr IVPB DAILY [facility] Last Admin: 03/07/18 09:04 Dose: 100 mls/hr HEPARIN SOD,PORK IN 0.45% NACL (Heparin-1/2ns 25,000 Units/500) 25,000 units in 500 mls @ 20 mls/hr IVPB TITR [facility]; Protocol Last Admin: 03/06/18 14:56 Dose: 1,200 units/hr, 24 mls/hr Lactated Ringer's (Lactated Ringers Solution) 1,000 ml in 1,000 mls @ 75 mls/ hr IV ASDIR [facility] Last Admin: 03/06/18 16:23 Dose: 75 mls/hr Piperacillin Sod/Tazobactam (Sod 3.375 gm/ Dextrose) 50 mls @ 100 mls/hr IVPB Q8H-IV [facility]ERED; Protocol Levothyroxine Sodium (Synthroid -) 112 mcg PO DAILY@0700 [facility] Last Admin: 03/07/18 06:25 Dose: Not Given Mupirocin (Bactroban Ointment (For Decolonization) -) 1 applic NS BID [facility] Stop: 03/11/18 21:59 Last Admin: 03/07/18 09:03 Dose: 1 applic Ondansetron HCl (Zofran Injection) 8 mg IVPB Q8H PRN PRN Reason: NAUSEA Pantoprazole Sodium (Protonix -) 40 mg PO DAILY [facility] Last Admin: 03/07/18 09:03 Dose: Not Given Promethazine HCl (Phenergan Injection -) 12.5 mg IVPB Q6H PRN PRN Reason: NAUSEA-FOR RESCUE AFTER 15 MIN Simethicone (Mylicon -) 80 mg PO Q4H PRN PRN Reason: GAS - Objective Vital Signs: Vital Signs Temperature 97.7 F 03/07/18 15:30 Pulse Rate 68 03/07/18 15:30 Respiratory Rate 16 03/07/18 15:30 Blood Pressure 115/84 03/07/18 15:30 O2 Sat by Pulse Oximetry (%) 99 03/07/18 15:30 Vital Signs Period Temp Pulse Resp BP Sys/Cavanaugh Pulse Ox Last 24 Hr 98 F-98.5 F 63-73 18-20 113-128/63-75 Constitutional: Yes: Well Nourished, No Distress, Calm, Thin Eyes: Yes: Conjunctiva Clear, EOM Intact HENT: Yes: Atraumatic, Normocephalic Neck: Yes: Supple, Trachea Midline Cardiovascular: Yes: Regular Rate and Rhythm, S1, S2 Respiratory: Yes: Regular, CTA Bilaterally Gastrointestinal: Yes: Normal Bowel Sounds, Soft. No: Tenderness ...Rectal Exam: Yes: Deferred Genitourinary: Yes: Other (left nephrostomy). No: CVA Tenderness - Left, CVA Tenderness - Right Musculoskeletal: No: Muscle Pain, Muscle Weakness Extremities: No: Cool, Cyanosis Edema: No Peripheral Pulses WNL: Yes Peripheral Pulses: Left Radial: 2+, Right Radial: 2+, Left Doralis Pedis: 2+, Right Dorsalis Pedis: 2+ Integumentary: No: Jaundice, Petechiae, Pressure Ulcer, Rash Wound/Incision: Yes: Clean/Dry, Dressing Dry and Intact, Unapproximated Neurological: Yes: Alert, Oriented Psychiatric: Yes: Alert, Oriented Labs: CBC, BMP 03/07/18 05:30 03/07/18 05:30 INR, PTT INR 1.33 (0.83-1.09) H 02/21/18 20:30 Problem List - Problems (1) Neoplasm of sigmoid colon Assessment/Plan: POD#21 s/p sigmoid colectomy and primary anastomosis (due to sigmoid colon cancer) POD#14 s/p completion left colectomy and amado's (due to perforated diverticulum distal to anatomosis) , cystoscopy today shows likely transection or left ureter unable to pass stent retrograde. ICu managemnt clear liquid diet advace as tolerated IVF hydration replete electrolytes - calcium antiemetic OOB and ambulate encourage IS family discussion is in order, with daughter will follow This patient is critically ill. Time spent reviewing chart, examining patient, talking with providers and/or family and documentation is 35 minutes. Code(s): D49.0 - NEOPLASM OF UNSPECIFIED BEHAVIOR OF DIGESTIVE SYSTEM (2) Sigmoid thickening Code(s): K63.9 - DISEASE OF INTESTINE, UNSPECIFIED (3) Abdominal pain Code(s): R10.9 - UNSPECIFIED ABDOMINAL PAIN Qualifiers: Abdominal location: left lower quadrant Qualified Code(s): R10.32 - Left lower quadrant pain (4) Abnormal colonoscopy Code(s): R93.3 - ABNORMAL FINDINGS ON DX IMAGING OF PRT DIGESTIVE TRACT
[2018-03-07] MEDS: LACTATED RINGERS SOLUTION 1,000 ML/1,000 ML INFUS.BAG IV SCH (16:26)
--- NOTE | 2018-03-07 16:41 | OP ---
DATE OF OPERATION: 03/07/2018 PREOPERATIVE DIAGNOSIS: Obstructed left ureter. POSTOPERATIVE DIAGNOSIS: Obstructed left ureter. PROCEDURE: Cystoscopy, retrograde pyelogram attempted, left ureteral stent placement. SURGEON: Evin Guerrero M.D. ANESTHESIA: General anesthesia. ANESTHESIOLOGIST: Isamar Roe MD FINDINGS: Obstructive and obliterated ureteral lumen in the pelvic inlet. PREOPERATIVE INDICATION: The patient is a 57-year-old male with a history of colon cancer who has developed a perforated diverticulum after initial colon resection and reanastomosis. He developed a pelvic abscess and had an urgent colonic diversion. Postoperatively he developed fluid in his pelvis and was diagnosed with having a ureteral obstruction. A nephrostomy tube was placed, and the tube was placed in the abdomen to drain. However, he seems to have fluid in his abdomen. On the original antegrade nephrostogram some contrast did reach the bladder. This was an attempt to do a retrograde wire and stent placement. DESCRIPTION OF PROCEDURE: The patient was brought to the OR, placed on the table in the supine position. Given general anesthesia and IV antibiotics and placed in the modified lithotomy position. The groin was prepped and draped sterilely. Cystoscopy was performed. The urethra appeared to be normal. Sphincter was intact. The prostate was normal. The bladder itself appeared to be unremarkable. The left UO was visualized and a glidewire was passed through an open-end catheter into the left ureteral orifice. The wire went up to just above the intramural ureter, it could not be passed antegrade to that. Retrograde pyelogram similarly did not show any contrast going above the area of obstruction. The procedure was abandoned. The wire and the tube were removed. Jahaira [id number]
--- NOTE | 2018-03-07 17:01 | PN ---
Teaching Attending Note Name of Resident: Betty Cardoza ATTENDING PHYSICIAN STATEMENT I saw and evaluated the patient. I reviewed the resident's note and discussed the case with the resident. I agree with the resident's findings and plan as documented with exceptions below. SUBJECTIVE: Patient seen and examined, no abdominal pain or urinary complaints. OBJECTIVE: Vital Signs Period Temp Pulse Resp BP Sys/Cavanaugh Pulse Ox Last 24 Hr 97.7 F-98.8 F 62-82 14-20 93-115/57-84 96-99 Intake & Output 03/04/18 03/05/18 03/06/18 03/07/18 23:59 23:59 23:59 23:59 Intake Total 2552 3821 2881 1100 Output Total 5200 5624 4540 3275 Balance -5942 -5155 -5810 -4730 Weight 197 lb 5.019 oz General: lying in bed in no acute distress Chest: CTAB, no rales or wheezing Abdomen:soft, NT, midline surgical incision with dressing, left colostomy with greenish stool, LLQ pigtail catheter in place, Left nephrostomy tube with yellowish drainage Extremities: no edema Home Medications Medication Instructions Recorded Levothyroxine [Synthroid -] 100 mcg PO DAILY 02/13/18 Active Medications Acetaminophen (Tylenol -) 650 mg PO Q4H PRN PRN Reason: FEVER Amino Acids (Prosource No Carb Liquid Pkt) 30 ml PO BID@0800,1730 [facility] Last Admin: 03/07/18 16:32 Dose: 30 ml Benzocaine/Menthol (Cepacol Lozenge -) 1 each MM PRN PRN PRN Reason: SORE THROAT Chlorhexidine Gluconate (Hibiclens For Decolonization -) 1 applic TP HS [facility] Last Admin: 03/06/18 22:30 Dose: 1 applic Diphenhydramine HCl (Benadryl Injection -) 12.5 mg IVPUSH ONCE PRN PRN Reason: FOR ITCHING Heparin Sodium (Porcine) (Heparin -) 5,000 unit IVPUSH PRN PRN PRN Reason: Heparin Heparin Sodium (Porcine) (Heparin -) 1,000 unit IVPUSH PRN PRN PRN Reason: Heparin Fluconazole (Diflucan 200 Mg/Ns Premixed Ivpb -) 100 mls @ 100 mls/hr IVPB DAILY [facility] Last Admin: 03/07/18 09:04 Dose: 100 mls/hr HEPARIN SOD,PORK IN 0.45% NACL (Heparin-1/2ns 25,000 Units/500) 25,000 units in 500 mls @ 20 mls/hr IVPB TITR [facility]; Protocol Last Admin: 03/06/18 14:56 Dose: 1,200 units/hr, 24 mls/hr Lactated Ringer's (Lactated Ringers Solution) 1,000 ml in 1,000 mls @ 75 mls/ hr IV ASDIR [facility] Last Admin: 03/07/18 16:26 Dose: 75 mls/hr Piperacillin Sod/Tazobactam (Sod 3.375 gm/ Dextrose) 50 mls @ 100 mls/hr IVPB Q8H-IV [facility]; Protocol Levothyroxine Sodium (Synthroid -) 112 mcg PO DAILY@0700 [facility] Last Admin: 03/07/18 06:25 Dose: Not Given Mupirocin (Bactroban Ointment (For Decolonization) -) 1 applic NS BID [facility] Stop: 03/11/18 21:59 Last Admin: 03/07/18 09:03 Dose: 1 applic Ondansetron HCl (Zofran Injection) 8 mg IVPB Q8H PRN PRN Reason: NAUSEA Pantoprazole Sodium (Protonix -) 40 mg PO DAILY [facility] Last Admin: 03/07/18 09:03 Dose: Not Given Promethazine HCl (Phenergan Injection -) 12.5 mg IVPB Q6H PRN PRN Reason: NAUSEA-FOR RESCUE AFTER 15 MIN Simethicone (Mylicon -) 80 mg PO Q4H PRN PRN Reason: GAS Laboratory Results - last 24 hr 02/23/18 02/23/18 03/07/18 13:09 13:09 05:30 WBC RBC Hgb Hct MCV MCH MCHC RDW Plt Count MPV Absolute Neuts (auto) Neutrophils % Lymphocytes % Monocytes % Eosinophils % Basophils % Nucleated RBC % PTT (Actin FS) 65.1 H Sodium Potassium Chloride Carbon Dioxide Anion Gap BUN Creatinine Creat Clearance w eGFR Random Glucose Calcium Phosphorus Magnesium Iron Cancelled TIBC Cancelled Iron Saturation Cancelled Ferritin 286.9 Total Bilirubin AST ALT Alkaline Phosphatase Total Protein Albumin Vitamin B12 278 03/07/18 03/07/18 05:30 05:30 WBC 5.3 RBC 3.29 L Hgb 8.9 L Hct 27.6 L MCV 83.9 MCH 27.2 MCHC 32.5 RDW 20.4 H Plt Count 347 MPV 6.8 L Absolute Neuts (auto) 3.7 Neutrophils % 69.3 Lymphocytes % 19.9 D Monocytes % 8.3 Eosinophils % 2.0 Basophils % 0.5 Nucleated RBC % 0 PTT (Actin FS) Sodium 141 Potassium 4.2 Chloride 106 Carbon Dioxide 30 Anion Gap 5 L BUN 6 L Creatinine 0.6 Creat Clearance w eGFR > 60 Random Glucose 93 Calcium 7.5 L Phosphorus 3.6 Magnesium 2.2 Iron TIBC Iron Saturation Ferritin Total Bilirubin 0.3 AST 16 ALT 30 Alkaline Phosphatase 146 H Total Protein 5.7 L Albumin 1.8 L Vitamin B12 ASSESSMENT AND PLAN: 57yo M with PMH hypothyroid presenetd to the ER with intermittent LLQ pain with recent colonoscopy with finding suspicious for malignancy. Pt underwent sigmoid colectomy on 02/14 which patient developed pneumoperitoneum and abdominal abscess and underwent ex-lap with abdominal washout and complete L hemicolectomy with Hartmans due to perforated diverticulum on 02/21. Pt went into AFib with RVR during the procedure which he self converted. Course complicated by L uretral injury iwth Ureteral extravsation seen with PCN tube was placed. [employer] called on 03/01 where pt was found to have a uroma where bedside pigtail placed and patient was transferred to ICU. patient care was transferred to [facility] at request of patient and family 1. Stage 1 colon ca s/p resection and Hartmans- s/p surgeries as stated above with wound vac and colostomy in place. Further wound care and wound vac management per surgical team. tolerating clear liquids. pain control 2. Sepsis due to Urine leak-s/p pigtail placement bedside by IR draining clear urine. Urology unable to place stent, procedure abandoned. Discussed with zenon Lindsay to resume heparin drip. ID input appreciated. 3. Abdominal abscess due to perforated diverticulum- s/p Hartmans 02/21. + polymicrobial (E.Coli, B.Fragilis, Yeast) on zosyn and fluconazole. leukocytosis resolved. repeat Cx NGTD. ID on board 4. +LLE DVT and suspected PE- was unable to CTA due to instability, R heart strain seen on echo suggestive of PE. on heparin ggt. will leave for now until after no more procedures are planned. not a candidate for any intervention. will need NOAC for minimum of 6 months. 5. Tropinemia- demand due to sepsis and hypoxia. Trop peaked at 0.86 and trended down. no indication for further monitoring of troponins. echo pending 6. PAF- no repeat episodes of afib noted. no further workup at this time 7. pseudohypocalcemia- corrected Ca 8.8 8. [facility] Plan discussed with family at bedside, all questions answered. The care of this patient involved high complexity decision making to prevent further life threatening deterioration of the patient's condition and/or to evaluate & treat vital organ system(s) failure or risk of failure. 32 mins
[2018-03-07] MEDS ORDERED: HEPARIN NA (PORCINE) 5,000 UNITS/ML 1ML VIAL IVPUSH PRN ×2 (17:18)
[2018-03-07] MEDS: HEPARIN SOD,PORK IN 0.45% NACL 25,000 UNITS/500 ML INFUS.BAG IVPB SCH (17:33)
[2018-03-07] MEDS: CHLORHEXIDINE GLUCONATE 4% CLEANSER FOR DECOLONIZATION TP SCH (22:01)
[2018-03-08 05:55] LABS: BASO % 0.6 % (0-2.0); EOS % 2.1 % (0-4.5); HEMATOCRIT 26.8 % (35.4-49); HEMOGLOBIN 8.5 GM/dL (11.7-16.9); LYMPH % 19.9 % (8-40); MCH 26.7 pg (25.7-33.7); MCHC 31.8 g/dl (32.0-35.9); MEAN PLT VOLUME 6.7 fl (7.5-11.1); MONO % 8.9 % (3.8-10.2); NEUT % 68.5 % (42.8-82.8); PLATELET COUNT 307 K/MM3 (134-434); RBC 3.18 M/mm3 (4.00-5.60); RDW 19.9 % (11.9-15.9); WHITE BLOOD COUNT 5.2 K/mm3 (4.0-10.0)
[2018-03-08] MEDS: LEVOTHYROXINE NA 112 MCG TABLET (FP) PO SCH (06:06)
[2018-03-08 06:21] LABS: ALBUMIN 1.8 g/dl (3.4-5.0); ALK PHOS 141 U/L (45-117); ANION GAP 7 MMOL/L (8-16); BILIRUBIN,TOTAL 0.3 mg/dL (0.2-1); BLOOD UREA NITROGEN 7 mg/dL (7-18); CALCIUM 7.4 mg/dL (8.5-10.1); CHLORIDE 105 mmol/L (98-107); CO2 28 mmol/L (21-32); CREATININE 0.5 mg/dL (0.55-1.3); GLUCOSE,RANDOM 99 mg/dL (74-106); MAGNESIUM 2.1 mg/dL (1.8-2.4); PHOSPHOROUS 3.5 mg/dL (2.5-4.9); POTASSIUM 3.9 mmol/L (3.5-5.1); SGOT/AST 19 U/L (15-37); SGPT/ALT 31 U/L (13-61); SODIUM 139 mmol/L (136-145); TOT PROT 5.8 g/dl (6.4-8.2)
[2018-03-08] MEDS: AMINO ACIDS/PROTEIN HYDROLYS 30 ML LIQUID.PKT PO SCH ×2 (08:37→17:11)
[2018-03-08] MEDS: LACTATED RINGERS SOLUTION 1,000 ML/1,000 ML INFUS.BAG IV SCH ×2 (09:31→17:13)
[2018-03-08] MEDS: MUPIROCIN 2% TOPICAL OINTMENT FOR DECOLONIZATION NS SCH ×2 (09:33→21:17)
[2018-03-08] MEDS ORDERED: PT OWN MED DRAWER 7, Y5N ONE ×2 (09:36→17:10)
[2018-03-08] MEDS: PANTOPRAZOLE 40 MG TABLET (FP) PO SCH (09:37)
[2018-03-08] MEDS: FLUCONAZOLE 200 MG/NS 100 ML IVPB SCH (09:38)
--- NOTE | 2018-03-08 09:58 | PN ---
Progress Note (short form) - Note Progress Note: Anesthesia POD#1 S/P Cystoscopy and attempted Stent placement under GA VSS,OBT chair,CVP line is removed. No N/V. Some headache and tiredness. No complications to anesthesia seen. Isamar Roe MD.
[2018-03-08] MEDS: ACETAMINOPHEN 325 MG TABLET (FP) PO PRN ×2 (09:59→21:15)
--- NOTE | 2018-03-08 12:20 | PN ---
Teaching Attending Note Name of Resident: Lilly Calvillo ATTENDING PHYSICIAN STATEMENT I saw and evaluated the patient. I reviewed the resident's note and discussed the case with the resident. I agree with the resident's findings and plan as documented. SUBJECTIVE: Pt seen and examined in the ICU. Pain controlled. Denies shortness of breath. Tolerating PO. OBJECTIVE: Vital Signs Period Temp Pulse Resp BP Sys/Cavanaugh Pulse Ox Last 24 Hr 97.7 F-98.7 F 60-96 14-23 85-115/59-84 95-99 Intake & Output 03/05/18 03/06/18 03/07/18 03/08/18 23:59 23:59 23:59 23:59 Intake Total 3821 2881 2211 1240 Output Total 5690 4540 4185 1100 Balance -1799 -8968 -1506 140 Gen: NAD in chair Heart: RRR Lung: decreased breath sounds at the bases Abd: soft, nontender, +ostomy with stool Ext: no edema CBC, BMP 03/08/18 05:15 03/08/18 05:15 Active Medications Acetaminophen (Tylenol -) 650 mg PO Q4H PRN PRN Reason: FEVER Last Admin: 03/08/18 09:59 Dose: 650 mg Amino Acids (Prosource No Carb Liquid Pkt) 30 ml PO BID@0800,1730 [facility] Last Admin: 03/08/18 08:37 Dose: 30 ml Benzocaine/Menthol (Cepacol Lozenge -) 1 each MM PRN PRN PRN Reason: SORE THROAT Chlorhexidine Gluconate (Hibiclens For Decolonization -) 1 applic TP HS [facility] Last Admin: 03/07/18 22:01 Dose: 1 applic Diphenhydramine HCl (Benadryl Injection -) 12.5 mg IVPUSH ONCE PRN PRN Reason: FOR ITCHING Heparin Sodium (Porcine) (Heparin -) 1,000 unit IVPUSH PRN PRN PRN Reason: Heparin Heparin Sodium (Porcine) (Heparin -) 5,000 unit IVPUSH PRN PRN PRN Reason: Heparin Fluconazole (Diflucan 200 Mg/Ns Premixed Ivpb -) 100 mls @ 100 mls/hr IVPB DAILY [facility] Last Admin: 03/08/18 09:38 Dose: 100 mls/hr Piperacillin Sod/Tazobactam (Sod 3.375 gm/ Dextrose) 50 mls @ 100 mls/hr IVPB Q8H-IV [facility]; Protocol HEPARIN SOD,PORK IN 0.45% NACL (Heparin-1/2ns 25,000 Units/500) 25,000 units in 500 mls @ 20 mls/hr IVPB TITR [facility]; Protocol Last Admin: 03/07/18 17:33 Dose: 1,000 units/hr, 20 mls/hr Lactated Ringer's (Lactated Ringers Solution) 1,000 ml in 1,000 mls @ 100 mls/ hr IV ASDIR [facility] Last Admin: 03/08/18 09:31 Dose: 100 mls/hr Levothyroxine Sodium (Synthroid -) 112 mcg PO DAILY@0700 [facility] Last Admin: 03/08/18 06:06 Dose: 112 mcg Mupirocin (Bactroban Ointment (For Decolonization) -) 1 applic NS BID [facility] Stop: 03/11/18 21:59 Last Admin: 03/08/18 09:33 Dose: 1 applic Ondansetron HCl (Zofran Injection) 8 mg IVPB Q8H PRN PRN Reason: NAUSEA Pantoprazole Sodium (Protonix -) 40 mg PO DAILY [facility] Last Admin: 03/08/18 09:37 Dose: 40 mg Promethazine HCl (Phenergan Injection -) 12.5 mg IVPB Q6H PRN PRN Reason: NAUSEA-FOR RESCUE AFTER 15 MIN Simethicone (Mylicon -) 80 mg PO Q4H PRN PRN Reason: GAS ASSESSMENT AND PLAN: Colon Ca s/p Sigmoid Colectomy 02/14 Post op Fecal Peritonitis/Perforated Diverticulum s/p ex-lap/abdominal washout/Left Colectomy/End Colostomy Paroxysmal Atrial Fibrillation s/p Acute Hypoxic Respiratory Failure Left Ureteral Leak s/p Nephrostomy placement Intra-abdominal Abscess s/p IR drainage Septic Shock resolved +Troponins likely Demand Ischemia Hypothyroidism - continue antibiotics - monitor urine output, creatinine - pain control - incentive spirometry - advance diet as tolerated - O2 to keep Spo2 >90% - DVT prophylaxis - can monitor on floor critical care time spent in reviewing chart, evaluating patient and formulating plan 35 min
[2018-03-08] MEDS ORDERED: SODIUM CHLORIDE 500 ML IV STA (12:49)
--- NOTE | 2018-03-08 14:11 | PN ---
Progress Note, Physician History of Present Illness: patient having low bp clinically looks stable breathing better patient according to the icu residents did not look good - Current Medication List Current Medications: Active Medications Acetaminophen (Tylenol -) 650 mg PO Q4H PRN PRN Reason: FEVER Last Admin: 03/08/18 09:59 Dose: 650 mg Amino Acids (Prosource No Carb Liquid Pkt) 30 ml PO BID@0800,1730 [facility] Last Admin: 03/08/18 08:37 Dose: 30 ml Benzocaine/Menthol (Cepacol Lozenge -) 1 each MM PRN PRN PRN Reason: SORE THROAT Chlorhexidine Gluconate (Hibiclens For Decolonization -) 1 applic TP HS [facility] Last Admin: 03/07/18 22:01 Dose: 1 applic Diphenhydramine HCl (Benadryl Injection -) 12.5 mg IVPUSH ONCE PRN PRN Reason: FOR ITCHING Heparin Sodium (Porcine) (Heparin -) 1,000 unit IVPUSH PRN PRN PRN Reason: Heparin Heparin Sodium (Porcine) (Heparin -) 5,000 unit IVPUSH PRN PRN PRN Reason: Heparin Fluconazole (Diflucan 200 Mg/Ns Premixed Ivpb -) 100 mls @ 100 mls/hr IVPB DAILY [facility] Last Admin: 03/08/18 09:38 Dose: 100 mls/hr Piperacillin Sod/Tazobactam (Sod 3.375 gm/ Dextrose) 50 mls @ 100 mls/hr IVPB Q8H-IV [facility]; Protocol HEPARIN SOD,PORK IN 0.45% NACL (Heparin-1/2ns 25,000 Units/500) 25,000 units in 500 mls @ 20 mls/hr IVPB TITR [facility]; Protocol Last Admin: 03/07/18 17:33 Dose: 1,000 units/hr, 20 mls/hr Lactated Ringer's (Lactated Ringers Solution) 1,000 ml in 1,000 mls @ 100 mls/ hr IV ASDIR [facility] Last Admin: 03/08/18 09:31 Dose: 100 mls/hr Piperacillin Sod/Tazobactam (Sod 2.25 gm/ Dextrose) 50 mls @ 100 mls/hr IVPB Q8H-IV [facility]ER[facility]; Protocol Levothyroxine Sodium (Synthroid -) 112 mcg PO DAILY@0700 [facility] Last Admin: 03/08/18 06:06 Dose: 112 mcg Mupirocin (Bactroban Ointment (For Decolonization) -) 1 applic NS BID [facility] Stop: 03/11/18 21:59 Last Admin: 03/08/18 09:33 Dose: 1 applic Ondansetron HCl (Zofran Injection) 8 mg IVPB Q8H PRN PRN Reason: NAUSEA Pantoprazole Sodium (Protonix -) 40 mg PO DAILY [facility] Last Admin: 03/08/18 09:37 Dose: 40 mg Promethazine HCl (Phenergan Injection -) 12.5 mg IVPB Q6H PRN PRN Reason: NAUSEA-FOR RESCUE AFTER 15 MIN Simethicone (Mylicon -) 80 mg PO Q4H PRN PRN Reason: GAS - Objective Vital Signs: Vital Signs Temperature 98.7 F 03/08/18 10:00 Pulse Rate 76 03/08/18 12:00 Respiratory Rate 20 03/08/18 12:00 Blood Pressure 106/65 03/08/18 12:00 O2 Sat by Pulse Oximetry (%) 95 03/08/18 08:49 Constitutional: Yes: No Distress, Calm Cardiovascular: Yes: Regular Rate and Rhythm Respiratory: Yes: Regular, CTA Bilaterally, On Nasal O2 Gastrointestinal: Yes: Normal Bowel Sounds, Soft Genitourinary: Yes: Other (nephrostomy tube and urostomy tube in place urostomy draining urine) Musculoskeletal: Yes: WNL Extremities: Yes: WNL Neurological: Yes: Alert, Oriented Psychiatric: Yes: Alert, Oriented Labs: CBC, BMP 03/08/18 05:15 03/08/18 05:15 INR, PTT INR 1.33 (0.83-1.09) H 02/21/18 20:30 Assessment/Plan Problem List - Problems (1) Neoplasm of sigmoid colon Code(s): D49.0 - NEOPLASM OF UNSPECIFIED BEHAVIOR OF DIGESTIVE SYSTEM (2) Sigmoid thickening Code(s): K63.9 - DISEASE OF INTESTINE, UNSPECIFIED (3) Abdominal pain Code(s): R10.9 - UNSPECIFIED ABDOMINAL PAIN Qualifiers: Abdominal location: left lower quadrant Qualified Code(s): R10.32 - Left lower quadrant pain (4) Abnormal colonoscopy Code(s): R93.3 - ABNORMAL FINDINGS ON DX IMAGING OF PRT DIGESTIVE TRACT fever abd distension DVT ? pe ureteral tear left s/p ext nephrostomy in view of patients hypotension,close watch on the the patient ,as patient might have infection plan continue current mgmt abx please send urine cx from thenephrostomy tube rest as per the team monitor for resp failure rest as per icu close watch cc 38 min
[2018-03-08] MEDS ORDERED: PIPERACILLIN/TAZOBACTAM 2.25 GM VIAL IVPB ONE ×2 (14:42→17:03)
[2018-03-08] MEDS ORDERED: DEXTROSE 5%-WATER - 50 ML IVPB ONE ×2 (14:42→17:03)
[2018-03-08] MEDS: PIPERACILLIN/TAZOB 2.25 GM 2.25 GM in DEXTROSE 5%-WATER - 50 ML IVPB SCH ×2 (14:47→18:06)
--- NOTE | 2018-03-08 15:10 | PN ---
Physical Exam: SUBJECTIVE: Patient seen and examined Patient stable in NAD OBJECTIVE: Vital Signs Period Temp Pulse Resp BP Sys/Cavanaugh Pulse Ox Last 24 Hr 97.7 F-98.7 F 60-96 14-23 85-115/59-84 95-99 GENERAL: The patient is awake, alert, and fully oriented, in no acute distress, on NC HEAD: Normal with no signs of trauma. EYES: PERRLA, extraocular movements NECK: Trachea midline, full range of motion LUNGS: Slightly coarse breath sounds bilaterally, no wheezes, no crackles, no accessory muscle use. HEART: Regular rate and rhythm, S1, S2 without murmur, rub or gallop. ABDOMEN: abdominal wound dressings, clean dry EXTREMITIES: 2+ pulses, warm, well-perfused, no edema. NEUROLOGICAL: Cranial nerves II through XII grossly intact. PSYCH: Normal mood, normal affect. SKIN: Warm, dry, normal turgor, no rashes or lesions noted Laboratory Results - last 24 hr 03/08/18 03/08/18 03/08/18 05:15 05:15 05:15 WBC 5.2 RBC 3.18 L Hgb 8.5 L Hct 26.8 L MCV 84.0 MCH 26.7 MCHC 31.8 L RDW 19.9 H Plt Count 307 MPV 6.7 L Absolute Neuts (auto) 3.6 Neutrophils % 68.5 Lymphocytes % 19.9 Monocytes % 8.9 Eosinophils % 2.1 Basophils % 0.6 Nucleated RBC % 0 PTT (Actin FS) 61.9 H Sodium 139 Potassium 3.9 Chloride 105 Carbon Dioxide 28 Anion Gap 7 L BUN 7 Creatinine 0.5 L Creat Clearance w eGFR > 60 Random Glucose 99 Calcium 7.4 L Phosphorus 3.5 Magnesium 2.1 Total Bilirubin 0.3 AST 19 ALT 31 Alkaline Phosphatase 141 H Total Protein 5.8 L Albumin 1.8 L Active Medications Generic Name Dose Route Start Last Admin Trade Name Freq PRN Reason Stop Dose Admin Acetaminophen 650 mg 03/06/18 12:53 03/08/18 09:59 Tylenol - PO 650 mg Q4H PRN Administration FEVER Amino Acids 30 ml 03/07/18 17:30 03/08/18 08:37 Prosource No Carb Liquid Pkt PO 30 ml BID@0800,1730 JERED Administration Benzocaine/Menthol 1 each 03/06/18 12:53 Cepacol Lozenge - MM PRN PRN SORE THROAT Chlorhexidine Gluconate 1 applic 03/06/18 22:00 03/07/18 22:01 Hibiclens For Decolonization - TP 1 applic HS JERED Administration Diphenhydramine HCl 12.5 mg 03/06/18 12:53 Benadryl Injection - IVPUSH ONCE PRN FOR ITCHING Heparin Sodium (Porcine) 1,000 unit 03/07/18 17:18 Heparin - IVPUSH PRN PRN Heparin Heparin Sodium (Porcine) 5,000 unit 03/07/18 17:18 Heparin - IVPUSH PRN PRN Heparin Fluconazole 100 mls @ 100 mls/hr 03/07/18 10:00 03/08/18 09:38 Diflucan 200 Mg/Ns Premixed Ivpb - IVPB 100 mls/hr DAILY JERED Administration HEPARIN SOD,PORK IN 0.45% NACL 25,000 units in 500 mls @ 20 mls/hr 03/07/18 17 :30 03/07/18 17:33 Heparin-1/2ns 25,000 Units/500 IVPB 1,000 units/hr TITR JERED 20 mls/hr Administration Protocol 1,000 UNITS/HR Lactated Ringer's 1,000 ml in 1,000 mls @ 100 mls/hr 03/08/18 08:47 03/08/18 09:31 Lactated Ringers Solution IV 100 mls/hr ASDIR JERED Administration Piperacillin Sod/Tazobactam 50 mls @ 100 mls/hr 03/08/18 14:15 03/08/18 14:47 Sod 2.25 gm/ Dextrose IVPB 100 mls/hr Q8H-IV JERED Administration Protocol Levothyroxine Sodium 112 mcg 03/07/18 07:00 03/08/18 06:06 Synthroid - PO 112 mcg DAILY@0700 JERED Administration Mupirocin 1 applic 03/06/18 22:00 03/08/18 09:33 Bactroban Ointment (For Decolonization) - NS 03/11/18 21:59 1 applic BID JERED Administration Ondansetron HCl 8 mg 03/06/18 12:53 Zofran Injection IVPB Q8H PRN NAUSEA Pantoprazole Sodium 40 mg 03/07/18 10:00 03/08/18 09:37 Protonix - PO 40 mg DAILY JERED Administration Promethazine HCl 12.5 mg 03/06/18 12:53 Phenergan Injection - IVPB Q6H PRN NAUSEA-FOR RESCUE AFTER 15 MIN Simethicone 80 mg 03/06/18 12:53 Mylicon - PO Q4H PRN GAS ASSESSMENT/PLAN: 57 year old man with history of hypothyroidism, Afib w/ RVR stage 1 colon cancer with Sue procedure performed 02/22 (Dr. Ventura). Patient with urine leak from abdominal site (02/26) found to have L sided ureteral extravasation with L nephrostomy tube placement (02/28). Brought to ICU s/p rapid response with tachycardia, hypotension and respiratory distress, satting into the 70s. Required NRB. Rhythm maintained sinus tachycardia and patient did not go into Afib w. RVR. Patient found to have LLE DVT with R heart strain on ECHO concerning for PE. PLAN Pulm Likely pulmonary embolism - ECHO (03/03) w/ R heart strain - pt unstable for CTA - Heparin restarted - saturating above 92% on NC - Early ambulation, IS Cardiac Tachycardia w/ hypotension during rapid response, pmhx Afib w/ RVR - elevated troponins down trending likely 2/2 demand Renal L ureteral extravasation s/p abdominal surgery, w/ L nephrostomy tube placement - 02/26: flush of urine from the abdomen, concerning for bladder or ureteral injury w/ CT Urogram showing left sided distal ureteral blush of contrast. - L nephrostomy tube placed 02/28 - Mazariegos - monitor urine output - unsuccessful ureteral stent placement attempt in OR (03/07/18) ID GI abscess, feculent peritonitis 2/2 perforated diverticulum, urine leak w/ leukocytosis Rapid response possibly due to septic shock 2/2 urine leak w/in the abdomen - Blood cultures (02/17) - without growth - Abscess culture (02/20) - lactose fermenting gram neg bacilli, coag pos staph , yeast - Per ID: Zosyn, Diflucan - Tylenol PRN for fever Oncology Stage 1 Colon CA - Sue procedure - Followed by pathology and oncology. Endo Hypothyroidism - TSH within normal - Levothyroxine home med Analgesia - Oxycodone 5mg Q6H PRN F/E/N - CLD, NPO after midnight for urology OR - d/c fluids 2/2 concern over fluid overload GI ppx - Protonix 40mg daily DVT ppx - heparin Lines, Tubes: mazariegos, IR uroma drain, L nephrostomy drain Dispo: Transfer to telemetry Visit type - Emergency Visit Emergency Visit: No - New Patient This patient is new to me today: No - Critical Care Critical Care patient: No
--- NOTE | 2018-03-08 15:17 | PN ---
Physical Exam: SUBJECTIVE: Patient seen and examined at bedside- patient was hypotensive overnight.however he denies having any complaints, he denies any CP/SOB/N/V fevers or chills OBJECTIVE: Vital Signs Period Temp Pulse Resp BP Sys/Cavanaugh Pulse Ox Last 24 Hr 97.7 F-98.7 F 60-96 14-23 85-115/59-84 95-99 GENERAL: The patient is awake, alert, and fully oriented, in no acute distress. EYES: PERRL, extraocular movements intact, sclera anicteric, conjunctiva clear. No ptosis. . NECK: no JVD no lymphadenopathy LUNGS: mild rales appreicated at the bases HEART: Regular rate and rhythm, S1, S2 without murmur, rub or gallop. ABDOMEN: Soft, nontender, nondistended, normoactive bowel sounds, no guarding, no rebound, no hepatosplenomegaly, no masses. nephrostomy tube and t-tube in place EXTREMITIES: 2+ pulses, warm, well-perfused, no edema. PSYCH: Normal mood, normal affect. SKIN: Warm, dry, normal turgor, no rashes or lesions noted Laboratory Results - last 24 hr 03/08/18 03/08/18 03/08/18 05:15 05:15 05:15 WBC 5.2 RBC 3.18 L Hgb 8.5 L Hct 26.8 L MCV 84.0 MCH 26.7 MCHC 31.8 L RDW 19.9 H Plt Count 307 MPV 6.7 L Absolute Neuts (auto) 3.6 Neutrophils % 68.5 Lymphocytes % 19.9 Monocytes % 8.9 Eosinophils % 2.1 Basophils % 0.6 Nucleated RBC % 0 PTT (Actin FS) 61.9 H Sodium 139 Potassium 3.9 Chloride 105 Carbon Dioxide 28 Anion Gap 7 L BUN 7 Creatinine 0.5 L Creat Clearance w eGFR > 60 Random Glucose 99 Calcium 7.4 L Phosphorus 3.5 Magnesium 2.1 Total Bilirubin 0.3 AST 19 ALT 31 Alkaline Phosphatase 141 H Total Protein 5.8 L Albumin 1.8 L Active Medications Generic Name Dose Route Start Last Admin Trade Name Freq PRN Reason Stop Dose Admin Acetaminophen 650 mg 03/06/18 12:53 03/08/18 09:59 Tylenol - PO 650 mg Q4H PRN Administration FEVER Amino Acids 30 ml 03/07/18 17:30 03/08/18 08:37 Prosource No Carb Liquid Pkt PO 30 ml BID@0800,1730 JERED Administration Benzocaine/Menthol 1 each 03/06/18 12:53 Cepacol Lozenge - MM PRN PRN SORE THROAT Chlorhexidine Gluconate 1 applic 03/06/18 22:00 03/07/18 22:01 Hibiclens For Decolonization - TP 1 applic HS JERED Administration Diphenhydramine HCl 12.5 mg 03/06/18 12:53 Benadryl Injection - IVPUSH ONCE PRN FOR ITCHING Heparin Sodium (Porcine) 1,000 unit 03/07/18 17:18 Heparin - IVPUSH PRN PRN Heparin Heparin Sodium (Porcine) 5,000 unit 03/07/18 17:18 Heparin - IVPUSH PRN PRN Heparin Fluconazole 100 mls @ 100 mls/hr 03/07/18 10:00 03/08/18 09:38 Diflucan 200 Mg/Ns Premixed Ivpb - IVPB 100 mls/hr DAILY JERED Administration HEPARIN SOD,PORK IN 0.45% NACL 25,000 units in 500 mls @ 20 mls/hr 03/07/18 17 :30 03/07/18 17:33 Heparin-1/2ns 25,000 Units/500 IVPB 1,000 units/hr TITR JERED 20 mls/hr Administration Protocol 1,000 UNITS/HR Lactated Ringer's 1,000 ml in 1,000 mls @ 100 mls/hr 03/08/18 08:47 03/08/18 09:31 Lactated Ringers Solution IV 100 mls/hr ASDIR JERED Administration Piperacillin Sod/Tazobactam 50 mls @ 100 mls/hr 03/08/18 14:15 03/08/18 14:47 Sod 2.25 gm/ Dextrose IVPB 100 mls/hr Q8H-IV JERED Administration Protocol Levothyroxine Sodium 112 mcg 03/07/18 07:00 03/08/18 06:06 Synthroid - PO 112 mcg DAILY@0700 JERED Administration Mupirocin 1 applic 03/06/18 22:00 03/08/18 09:33 Bactroban Ointment (For Decolonization) - NS 03/11/18 21:59 1 applic BID JERED Administration Ondansetron HCl 8 mg 03/06/18 12:53 Zofran Injection IVPB Q8H PRN NAUSEA Pantoprazole Sodium 40 mg 03/07/18 10:00 03/08/18 09:37 Protonix - PO 40 mg DAILY JERED Administration Promethazine HCl 12.5 mg 03/06/18 12:53 Phenergan Injection - IVPB Q6H PRN NAUSEA-FOR RESCUE AFTER 15 MIN Simethicone 80 mg 03/06/18 12:53 Mylicon - PO Q4H PRN GAS ASSESSMENT/PLAN: 57 year old man with history of hypothyroidism, Afib w/ RVR stage 1 colon cancer with Sue procedure performed 02/22 (Dr. Ventura). Patient with urine leak from abdominal site (02/26) found to have L sided ureteral extravasation with L nephrostomy tube placement (02/28). PLAN #Septic Shock possibly 2/2 urine leak -patient was hypotensive overnight (112'135)/(83-68) -CX negative -current abx as per ID; day 8 of zosyn and diflucan -monitor hemodynamics -patient found to have RV strain on echo- suggestive of PE; currently on heparin drip - ? if needs thrombectomy- if not will switch over to full dose lovenox after patient has stent procedure ; CTA ordered #GI Abcess with urine leak and leukocytosis - Blood cultures (02/17) - without growth - Abscess culture (02/20) - lactose fermenting gram neg bacilli, coag pos staph , yeast - Per ID: Zosyn, Diflucan (for yeast growth) day 8 - Tylenol PRN for fever #Ureteral Extravasation with nephrostomy tube placementt. - L nephrostomy tube placed 02/28 - Lentz - monitor urine output -ab/pelvis CT pending -pateint was unablr to have stenet placed yesterday #Colon Ca s/p Harrtmanns procedure -f/u pathology -f/u oncology recs #Hypothyroidism -TSH within normal limits c/w home dose of levothyroxine F/E/N -monitor electrolyres - advanced diet GI ppx - Protonix 40mg daily DVT ppx - heparin drip . Problem List - Problems (1) Abdominal pain Code(s): R10.9 - UNSPECIFIED ABDOMINAL PAIN Qualifiers: Abdominal location: left lower quadrant Qualified Code(s): R10.32 - Left lower quadrant pain (2) Abnormal colonoscopy Code(s): R93.3 - ABNORMAL FINDINGS ON DX IMAGING OF PRT DIGESTIVE TRACT (3) Afib Code(s): I48.91 - UNSPECIFIED ATRIAL FIBRILLATION (4) Left ureteral injury Code(s): S37.10XA - UNSPECIFIED INJURY OF URETER, INITIAL ENCOUNTER Visit type - Emergency Visit Emergency Visit: Yes ED Registration Date: 02/13/18 Care time: The patient presented to the Emergency Department on the above date and was hospitalized for further evaluation of their emergent condition. - New Patient This patient is new to me today: No - Critical Care Critical Care patient: No
[2018-03-08] MEDS: HEPARIN SOD,PORK IN 0.45% NACL 25,000 UNITS/500 ML INFUS.BAG IVPB SCH (17:11)
--- NOTE | 2018-03-08 18:06 | PN ---
Teaching Attending Note Name of Resident: Betty Cardoza ATTENDING PHYSICIAN STATEMENT I saw and evaluated the patient. I reviewed the resident's note and discussed the case with the resident. I agree with the resident's findings and plan as documented with exceptions below. SUBJECTIVE: Patient seen and examined. Denies any nausea, vomiting, abdominal pain, chest pain or dizziness. Wanting to eat solid food. OBJECTIVE: Vital Signs Period Temp Pulse Resp BP Sys/Cavanaugh Pulse Ox Last 24 Hr 97.9 F-98.7 F 60-96 14-23 85-106/59-75 95-97 Intake & Output 03/05/18 03/06/18 03/07/18 03/08/18 23:59 23:59 23:59 23:59 Intake Total 3821 2881 2211 3605 Output Total 5646 7620 4834 3820 Balance -5105 -4646 -0919 1235 General: sitting in chair in no acute distress Chest: CTAB, no rales or wheezing Abdomen:Soft, midline dressing clean, Left nephrostomy tube, LLQ pigtail placement, no voluntary or involuntary guarding or rigidity, positive bowel sounds Extremities: no edema Active Medications Acetaminophen (Tylenol -) 650 mg PO Q4H PRN PRN Reason: FEVER Last Admin: 03/08/18 09:59 Dose: 650 mg Amino Acids (Prosource No Carb Liquid Pkt) 30 ml PO BID@0800,1730 [facility] Last Admin: 03/08/18 17:11 Dose: 30 ml Benzocaine/Menthol (Cepacol Lozenge -) 1 each MM PRN PRN PRN Reason: SORE THROAT Chlorhexidine Gluconate (Hibiclens For Decolonization -) 1 applic TP HS [facility] Last Admin: 03/07/18 22:01 Dose: 1 applic Diphenhydramine HCl (Benadryl Injection -) 12.5 mg IVPUSH ONCE PRN PRN Reason: FOR ITCHING Heparin Sodium (Porcine) (Heparin -) 1,000 unit IVPUSH PRN PRN PRN Reason: Heparin Heparin Sodium (Porcine) (Heparin -) 5,000 unit IVPUSH PRN PRN PRN Reason: Heparin Fluconazole (Diflucan 200 Mg/Ns Premixed Ivpb -) 100 mls @ 100 mls/hr IVPB DAILY [facility] Last Admin: 03/08/18 09:38 Dose: 100 mls/hr HEPARIN SOD,PORK IN 0.45% NACL (Heparin-1/2ns 25,000 Units/500) 25,000 units in 500 mls @ 20 mls/hr IVPB TITR [facility]; Protocol Last Admin: 03/08/18 17:11 Dose: 1,000 units/hr, 20 mls/hr Lactated Ringer's (Lactated Ringers Solution) 1,000 ml in 1,000 mls @ 100 mls/ hr IV ASDIR [facility] Last Admin: 03/08/18 17:13 Dose: 100 mls/hr Piperacillin Sod/Tazobactam (Sod 2.25 gm/ Dextrose) 50 mls @ 100 mls/hr IVPB Q8H-IV JERED; Protocol Last Admin: 03/08/18 14:47 Dose: 100 mls/hr Levothyroxine Sodium (Synthroid -) 112 mcg PO DAILY@0700 [facility] Last Admin: 03/08/18 06:06 Dose: 112 mcg Mupirocin (Bactroban Ointment (For Decolonization) -) 1 applic NS BID [facility] Stop: 03/11/18 21:59 Last Admin: 03/08/18 09:33 Dose: 1 applic Ondansetron HCl (Zofran Injection) 8 mg IVPB Q8H PRN PRN Reason: NAUSEA Pantoprazole Sodium (Protonix -) 40 mg PO DAILY [facility] Last Admin: 03/08/18 09:37 Dose: 40 mg Promethazine HCl (Phenergan Injection -) 12.5 mg IVPB Q6H PRN PRN Reason: NAUSEA-FOR RESCUE AFTER 15 MIN Simethicone (Mylicon -) 80 mg PO Q4H PRN PRN Reason: GAS ASSESSMENT AND PLAN: 57yo M with PMH hypothyroid presenetd to the ER with intermittent LLQ pain with recent colonoscopy with finding suspicious for malignancy. Pt underwent sigmoid colectomy on 02/14 which patient developed pneumoperitoneum and abdominal abscess and underwent ex-lap with abdominal washout and complete L hemicolectomy with Hartmans due to perforated diverticulum on 02/21. Pt went into AFib with RVR during the procedure which he self converted. Course complicated by L uretral injury with Ureteral extravsation seen with PCN tube was placed. [facility] called on 11/28 where pt was found to have a uroma where bedside pigtail placed and patient was transferred to ICU. patient care was transferred to [facility] service at request of patient and family - Stage 1 colon ca s/p resection and Hartmans- s/p surgeries as stated above with wound vac and colostomy in place. Further wound care and wound vac management per surgical team. tolerating clear liquids. pain control - Sepsis due to Urine leak-s/p pigtail placement bedside by IR draining clear urine. Urology unable to place stent, procedure abandoned. Discussed with zenon Lindsay to resume heparin drip. ID input appreciated. Discuss with urology about further plan for infection. - Abdominal abscess due to perforated diverticulum- s/p Hartmans 02/21. + polymicrobial (E.Coli, B.Fragilis, Yeast) on zosyn and fluconazole. leukocytosis resolved. repeat Cx NGTD. ID on board - Hypotension - ?from significant output and poor oral intake. IVF, advance PO, monitor hemodynamics closely. Monitor for recurrent sepsis. Hold off transfer out of ICU today (relayed to ICU team) - +LLE DVT and suspected PE- was unable to CTA due to instability, R heart strain seen on echo suggestive of PE. on heparin ggt. will leave for now until after no more procedures are planned. not a candidate for any intervention. will need NOAC for minimum of 6 months. - Tropinemia- demand due to sepsis and hypoxia. Trop peaked at 0.86 and trended down. no indication for further monitoring of troponins. echo pending - PAF- no repeat episodes of afib noted. no further workup at this time - pseudohypocalcemia- corrected Ca 8.8 - Continue care in ICU for now. Plan discussed with patient, all questions answered. The care of this patient involved high complexity decision making to prevent further life threatening deterioration of the patient's condition and/or to evaluate & treat vital organ system(s) failure or risk of failure. 30 mins
[2018-03-08 19:02] LABS: URINE APPEARANCE CLEAR; URINE BILIRUBIN NEGATIVE (<2.0 mg/dL); URINE COLOR STRAW; URINE GLUCOSE (UA) NEGATIVE (NEGATIVE); URINE KETONE NEGATIVE (NEGATIVE); URINE LEUK ESTERASE NEGATIVE (NEGATIVE); URINE NITRITE NEGATIVE (NEGATIVE); URINE PROTEIN NEGATIVE (NEGATIVE); URINE UROBILINOGEN NEGATIVE mg/dL (0.2-1.0)
[2018-03-08] MEDS: CHLORHEXIDINE GLUCONATE 4% CLEANSER FOR DECOLONIZATION TP SCH (21:17)
[2018-03-09] MEDS ORDERED: DEXTROSE 5%-WATER - 50 ML IVPB ONE ×3 (01:58→17:42)
[2018-03-09] MEDS ORDERED: PIPERACILLIN/TAZOBACTAM 2.25 GM VIAL IVPB ONE ×3 (01:58→17:41)
[2018-03-09] MEDS: PIPERACILLIN/TAZOB 2.25 GM 2.25 GM in DEXTROSE 5%-WATER - 50 ML IVPB SCH ×3 (02:22→17:47)
[2018-03-09] MEDS ORDERED: PT OWN MED DRAWER 7, Y5N ONE ×3 (05:34→22:44)
[2018-03-09] MEDS: ACETAMINOPHEN 325 MG TABLET (FP) PO PRN ×2 (05:36→14:17)
[2018-03-09 06:10] LABS: BASO % 0.4 % (0-2.0); EOS % 1.2 % (0-4.5); HEMATOCRIT 27.7 % (35.4-49); HEMOGLOBIN 8.8 GM/dL (11.7-16.9); LYMPH % 10.7 % (8-40); MCHC 31.9 g/dl (32.0-35.9); MEAN CELL VOLUME 84.6 fl (80-96); MEAN PLT VOLUME 6.9 fl (7.5-11.1); MONO % 7.2 % (3.8-10.2); NEUT % 80.5 % (42.8-82.8); PLATELET COUNT 276 K/MM3 (134-434); RBC 3.27 M/mm3 (4.00-5.60); WHITE BLOOD COUNT 8.8 K/mm3 (4.0-10.0)
[2018-03-09] MEDS: LEVOTHYROXINE NA 112 MCG TABLET (FP) PO SCH (06:31)
[2018-03-09 06:39] LABS: ALBUMIN 1.9 g/dl (3.4-5.0); ALK PHOS 139 U/L (45-117); ANION GAP 7 MMOL/L (8-16); BILIRUBIN,TOTAL 0.3 mg/dL (0.2-1); BLOOD UREA NITROGEN 12 mg/dL (7-18); CALCIUM 7.7 mg/dL (8.5-10.1); CHLORIDE 106 mmol/L (98-107); CO2 28 mmol/L (21-32); CREATININE 0.7 mg/dL (0.55-1.3); GLUCOSE,RANDOM 115 mg/dL (74-106); MAGNESIUM 2.1 mg/dL (1.8-2.4); PHOSPHOROUS 3.2 mg/dL (2.5-4.9); POTASSIUM 3.8 mmol/L (3.5-5.1); SGOT/AST 17 U/L (15-37); SGPT/ALT 28 U/L (13-61); SODIUM 142 mmol/L (136-145); TOT PROT 6.3 g/dl (6.4-8.2)
[2018-03-09] MEDS: AMINO ACIDS/PROTEIN HYDROLYS 30 ML LIQUID.PKT PO SCH ×2 (08:52→17:47)
[2018-03-09] MEDS: LACTATED RINGERS SOLUTION 1,000 ML/1,000 ML INFUS.BAG IV SCH (08:54)
[2018-03-09] MEDS: MUPIROCIN 2% TOPICAL OINTMENT FOR DECOLONIZATION NS SCH (08:59)
[2018-03-09] MEDS: FLUCONAZOLE 200 MG/NS 100 ML IVPB SCH (09:00)
[2018-03-09] MEDS: PANTOPRAZOLE 40 MG TABLET (FP) PO SCH (09:01)
--- NOTE | 2018-03-09 11:08 | PN ---
Teaching Attending Note Name of Resident: Betty Cardoza ATTENDING PHYSICIAN STATEMENT I saw and evaluated the patient. I reviewed the resident's note and discussed the case with the resident. I agree with the resident's findings and plan as documented with exceptions below. SUBJECTIVE: Patient seen and examined. Some pain earlier, denies currently. No chest pain, dyspnea, dizziness, or new concerns. Tolerating diet well. OBJECTIVE: Vital Signs Period Temp Pulse Resp BP Sys/Cavanaugh Pulse Ox Last 24 Hr 97.9 F-99.4 F 60-76 14-24 96-113/62-95 96-100 Intake & Output 03/06/18 03/07/18 03/08/18 03/09/18 23:59 23:59 23:59 23:59 Intake Total 2881 2211 3605 1448 Output Total 4540 4185 2820 1585 Balance -1217 -2436 785 -137 General: lying in bed in no acute distress Chest: CTAB, no rales or wheezing Abdomen:soft, minimal brown watery stool in colostomy bag, midline incision clean, no guarding or rigidity, left pigtail with minimal blood tinged drainage , left nephrostomy with yellowish drainage Extremities: no edema Active Medications Acetaminophen (Tylenol -) 650 mg PO Q4H PRN PRN Reason: FEVER Last Admin: 03/09/18 05:36 Dose: 650 mg Amino Acids (Prosource No Carb Liquid Pkt) 30 ml PO BID@0800,1730 [facility] Last Admin: 03/09/18 08:52 Dose: 30 ml Benzocaine/Menthol (Cepacol Lozenge -) 1 each MM PRN PRN PRN Reason: SORE THROAT Chlorhexidine Gluconate (Hibiclens For Decolonization -) 1 applic TP HS [facility] Last Admin: 03/08/18 21:17 Dose: 1 applic Diphenhydramine HCl (Benadryl Injection -) 12.5 mg IVPUSH ONCE PRN PRN Reason: FOR ITCHING Heparin Sodium (Porcine) (Heparin -) 1,000 unit IVPUSH PRN PRN PRN Reason: Heparin Heparin Sodium (Porcine) (Heparin -) 5,000 unit IVPUSH PRN PRN PRN Reason: Heparin Fluconazole (Diflucan 200 Mg/Ns Premixed Ivpb -) 100 mls @ 100 mls/hr IVPB DAILY [facility] Last Admin: 03/09/18 09:00 Dose: 100 mls/hr HEPARIN SOD,PORK IN 0.45% NACL (Heparin-1/2ns 25,000 Units/500) 25,000 units in 500 mls @ 20 mls/hr IVPB TITR [facility]; Protocol Last Titration: 03/09/18 08:50 Dose: 1,000 units/hr, 20 mls/hr Lactated Ringer's (Lactated Ringers Solution) 1,000 ml in 1,000 mls @ 100 mls/ hr IV ASDIR [facility] Last Admin: 03/09/18 08:54 Dose: 100 mls/hr Piperacillin Sod/Tazobactam (Sod 2.25 gm/ Dextrose) 50 mls @ 100 mls/hr IVPB Q8H-IV [facility]; Protocol Last Admin: 03/09/18 09:01 Dose: 100 mls/hr Levothyroxine Sodium (Synthroid -) 112 mcg PO DAILY@0700 [facility] Last Admin: 03/09/18 06:31 Dose: 112 mcg Mupirocin (Bactroban Ointment (For Decolonization) -) 1 applic NS BID [facility] Stop: 03/11/18 21:59 Last Admin: 03/09/18 08:59 Dose: 1 applic Ondansetron HCl (Zofran Injection) 8 mg IVPB Q8H PRN PRN Reason: NAUSEA Pantoprazole Sodium (Protonix -) 40 mg PO DAILY [facility] Last Admin: 03/09/18 09:01 Dose: 40 mg Promethazine HCl (Phenergan Injection -) 12.5 mg IVPB Q6H PRN PRN Reason: NAUSEA-FOR RESCUE AFTER 15 MIN Simethicone (Mylicon -) 80 mg PO Q4H PRN PRN Reason: GAS Laboratory Results - last 24 hr 03/08/18 03/09/18 03/09/18 14:07 05:30 05:30 WBC RBC Hgb Hct MCV MCH MCHC RDW Plt Count MPV Absolute Neuts (auto) Neutrophils % Lymphocytes % Monocytes % Eosinophils % Basophils % Nucleated RBC % PTT (Actin FS) 197.0 H Sodium 142 Potassium 3.8 Chloride 106 Carbon Dioxide 28 Anion Gap 7 L BUN 12 Creatinine 0.7 Creat Clearance w eGFR > 60 Random Glucose 115 H Calcium 7.7 L Phosphorus 3.2 Magnesium 2.1 Total Bilirubin 0.3 AST 17 ALT 28 Alkaline Phosphatase 139 H Total Protein 6.3 L Albumin 1.9 L Urine Color Straw Urine Appearance Clear Urine pH 6.0 Ur Specific Russell 1.012 Urine Protein Negative Urine Glucose (UA) Negative Urine Ketones Negative Urine Blood 3+ H Urine Nitrite Negative Urine Bilirubin Negative Urine Urobilinogen Negative Ur Leukocyte Esterase Negative Urine WBC (Auto) 13 Urine RBC (Auto) 53 03/09/18 03/09/18 05:30 07:33 WBC 8.8 RBC 3.27 L Hgb 8.8 L Hct 27.7 L MCV 84.6 MCH 27.0 MCHC 31.9 L RDW 21.0 H Plt Count 276 MPV 6.9 L Absolute Neuts (auto) 7.1 Neutrophils % 80.5 Lymphocytes % 10.7 D Monocytes % 7.2 Eosinophils % 1.2 Basophils % 0.4 Nucleated RBC % 0 PTT (Actin FS) 54.8 H Sodium Potassium Chloride Carbon Dioxide Anion Gap BUN Creatinine Creat Clearance w eGFR Random Glucose Calcium Phosphorus Magnesium Total Bilirubin AST ALT Alkaline Phosphatase Total Protein Albumin Urine Color Urine Appearance Urine pH Ur Specific Russell Urine Protein Urine Glucose (UA) Urine Ketones Urine Blood Urine Nitrite Urine Bilirubin Urine Urobilinogen Ur Leukocyte Esterase Urine WBC (Auto) Urine RBC (Auto) Microbiology 03/02/18 08:40 Blood - Peripheral Venous Blood Culture - Final NO GROWTH AFTER 5 DAYS INCUBATION 03/02/18 08:35 Blood - Peripheral Venous Blood Culture - Final NO GROWTH AFTER 5 DAYS INCUBATION 03/01/18 17:00 Ascites Gram Stain - Final 03/01/18 17:00 Ascites Body Fluid Culture - Final Yeast Like Organism 03/01/18 17:00 Ascites Anaerobic Culture - Final NO ANAEROBES WERE ISOLATED 03/01/18 17:00 Ascites AFB Smear Concentration - Final 03/01/18 17:00 Ascites Mycobacterial Culture - Preliminary 03/02/18 10:00 Urine - Urine Lentz Urine Culture - Final NO GROWTH OBTAINED 03/01/18 17:00 Ascites RADHA Preparation - Preliminary 03/01/18 17:00 Ascites Fungal Culture - Preliminary 02/24/18 14:50 Blood - Peripheral Venous Blood Culture - Final NO GROWTH AFTER 5 DAYS INCUBATION 02/24/18 14:30 Blood - Peripheral Venous Blood Culture - Final NO GROWTH AFTER 5 DAYS INCUBATION 02/22/18 21:40 Blood - Peripheral Venous Blood Culture - Final NO GROWTH AFTER 5 DAYS INCUBATION 02/22/18 20:15 Blood - Peripheral Venous Blood Culture - Final NO GROWTH AFTER 5 DAYS INCUBATION 02/20/18 14:30 Abscess Gram Stain - Final 02/20/18 14:30 Abscess Body Fluid Culture - Final Escherichia Coli Staphylococcus Aureus Yeast Like Organism 02/20/18 14:30 Abscess Anaerobic Culture - Final Bacteroides Fragilis 02/22/18 23:24 Urine - Urine Lentz Urine Culture - Final NO GROWTH OBTAINED 02/17/18 20:00 Blood - Peripheral Venous Blood Culture - Final NO GROWTH AFTER 5 DAYS INCUBATION 02/17/18 17:00 Blood - Peripheral Venous Blood Culture - Final NO GROWTH AFTER 5 DAYS INCUBATION 02/17/18 16:40 Urine - Urine Clean Catch Urine Culture - Final NO GROWTH OBTAINED ASSESSMENT AND PLAN: 57yo M with PMH hypothyroid presenetd to the ER with intermittent LLQ pain with recent colonoscopy with finding suspicious for malignancy. Pt underwent sigmoid colectomy on 02/14 which patient developed pneumoperitoneum and abdominal abscess and underwent ex-lap with abdominal washout and complete L hemicolectomy with Hartmans due to perforated diverticulum on 02/21. Pt went into AFib with RVR during the procedure which he self converted. Course complicated by L uretral injury with Ureteral extravsation seen with PCN tube was placed. [employer] called on 03/01 where pt was found to have a uroma where bedside pigtail placed and patient was transferred to ICU. patient care was transferred to [facility] at request of patient and family - Stage 1 colon ca s/p resection and Hartmans- s/p surgeries as stated above with wound vac and colostomy in place. Further wound care and wound vac management per surgical team. tolerating clear liquids. pain control - Sepsis due to Urine leak-s/p pigtail placement bedside by IR draining clear urine. Urology unable to place stent, procedure abandoned. Discussed with Dr. Grubbs, Dr. Foster (Uro oncologist) from [facility] to see patient. Follow up recs for possible surgical plans and transfer to tertiary care center. Send creatinine from pigtail drainage. - Abdominal abscess due to perforated diverticulum- s/p Hartmans 02/21. + polymicrobial (E.Coli, B.Fragilis, Yeast) on zosyn and fluconazole. leukocytosis resolved. repeat Cx NGTD. ID on board - Hypotension - resolved. suspect from significant output and poor oral intake. PO intake improved, BP stable, continue IVF for now. Monitor for recurrent sepsis. - +LLE DVT and suspected PE- was unable to CTA due to instability, R heart strain seen on echo suggestive of PE. on heparin ggt. will leave for now until after no more procedures are planned. not a candidate for any intervention. will need NOAC for minimum of 6 months. - Tropinemia- demand due to sepsis and hypoxia. Trop peaked at 0.86 and trended down. no indication for further monitoring of troponins. echo pending - PAF- no repeat episodes of afib noted. no further workup at this time - pseudohypocalcemia- corrected Ca 8.8 - Continue care in ICU for now. Plan discussed with patient, all questions answered Care co-ordinated with ICU team, Urology and Nursing. The care of this patient involved high complexity decision making to prevent further life threatening deterioration of the patient's condition and/or to evaluate & treat vital organ system(s) failure or risk of failure. 30 mins
--- NOTE | 2018-03-09 11:49 | PN ---
Physical Exam: SUBJECTIVE: Patient seen and examined at bedside- patient states he had some abdominal pain earlier in the night however he is no longer experiencing any pain. he is tolerating his diet well and walked with PT yesterday- he denies any CP/SOB/N/V fevers or chills. OBJECTIVE: Vital Signs Period Temp Pulse Resp BP Sys/Cavanaugh Pulse Ox Last 24 Hr 97.9 F-99.4 F 60-76 14-24 96-113/62-95 96-100 GENERAL: The patient is awake, alert, and fully oriented, in no acute distress. EYES: no scleral icterus NECK: no JVD, no lymphadenopathy LUNGS: slight rales B/L at the bases HEART: Regular rate and rhythm, S1, S2 without murmur, rub or gallop. ABDOMEN: Soft, nontender, nondistended, normoactive bowel sounds, no guarding, no rebound, no hepatosplenomegaly, no masses. uroma and nephrosotomy tube in place EXTREMITIES: 2+ pulses, warm, well-perfused, trace edema. PSYCH: Normal mood, normal affect. SKIN: Warm, dry, normal turgor, no rashes or lesions noted Laboratory Results - last 24 hr 03/08/18 03/09/18 03/09/18 14:07 05:30 05:30 WBC RBC Hgb Hct MCV MCH MCHC RDW Plt Count MPV Absolute Neuts (auto) Neutrophils % Lymphocytes % Monocytes % Eosinophils % Basophils % Nucleated RBC % PTT (Actin FS) 197.0 H Sodium 142 Potassium 3.8 Chloride 106 Carbon Dioxide 28 Anion Gap 7 L BUN 12 Creatinine 0.7 Creat Clearance w eGFR > 60 Random Glucose 115 H Calcium 7.7 L Phosphorus 3.2 Magnesium 2.1 Total Bilirubin 0.3 AST 17 ALT 28 Alkaline Phosphatase 139 H Total Protein 6.3 L Albumin 1.9 L Urine Color Straw Urine Appearance Clear Urine pH 6.0 Ur Specific Powder[place] 1.012 Urine Protein Negative Urine Glucose (UA) Negative Urine Ketones Negative Urine Blood 3+ H Urine Nitrite Negative Urine Bilirubin Negative Urine Urobilinogen Negative Ur Leukocyte Esterase Negative Urine WBC (Auto) 13 Urine RBC (Auto) 53 03/09/18 03/09/18 05:30 07:33 WBC 8.8 RBC 3.27 L Hgb 8.8 L Hct 27.7 L MCV 84.6 MCH 27.0 MCHC 31.9 L RDW 21.0 H Plt Count 276 MPV 6.9 L Absolute Neuts (auto) 7.1 Neutrophils % 80.5 Lymphocytes % 10.7 D Monocytes % 7.2 Eosinophils % 1.2 Basophils % 0.4 Nucleated RBC % 0 PTT (Actin FS) 54.8 H Sodium Potassium Chloride Carbon Dioxide Anion Gap BUN Creatinine Creat Clearance w eGFR Random Glucose Calcium Phosphorus Magnesium Total Bilirubin AST ALT Alkaline Phosphatase Total Protein Albumin Urine Color Urine Appearance Urine pH Ur Specific Powder[place] Urine Protein Urine Glucose (UA) Urine Ketones Urine Blood Urine Nitrite Urine Bilirubin Urine Urobilinogen Ur Leukocyte Esterase Urine WBC (Auto) Urine RBC (Auto) Active Medications Generic Name Dose Route Start Last Admin Trade Name Freq PRN Reason Stop Dose Admin Acetaminophen 650 mg 03/06/18 12:53 03/09/18 05:36 Tylenol - PO 650 mg Q4H PRN Administration FEVER Amino Acids 30 ml 03/07/18 17:30 03/09/18 08:52 Prosource No Carb Liquid Pkt PO 30 ml BID@0800,1730 [facility] Administration Benzocaine/Menthol 1 each 03/06/18 12:53 Cepacol Lozenge - MM PRN PRN SORE THROAT Chlorhexidine Gluconate 1 applic 03/06/18 22:00 03/08/18 21:17 Hibiclens For Decolonization - TP 1 applic HS [facility]ED Administration Diphenhydramine HCl 12.5 mg 03/06/18 12:53 Benadryl Injection - IVPUSH ONCE PRN FOR ITCHING Heparin Sodium (Porcine) 1,000 unit 03/07/18 17:18 Heparin - IVPUSH PRN PRN Heparin Heparin Sodium (Porcine) 5,000 unit 03/07/18 17:18 Heparin - IVPUSH PRN PRN Heparin Fluconazole 100 mls @ 100 mls/hr 03/07/18 10:00 03/09/18 09:00 Diflucan 200 Mg/Ns Premixed Ivpb - IVPB 100 mls/hr DAILY [facility] Administration HEPARIN SOD,PORK IN 0.45% NACL 25,000 units in 500 mls @ 20 mls/hr 03/07/18 17 :30 03/09/18 08:50 Heparin-1/2ns 25,000 Units/500 IVPB 1,000 units/hr TITR JERED 20 mls/hr Titration Protocol 1,000 UNITS/HR Lactated Ringer's 1,000 ml in 1,000 mls @ 100 mls/hr 03/08/18 08:47 03/09/18 08:54 Lactated Ringers Solution IV 100 mls/hr ASDIR [facility]ED Administration Piperacillin Sod/Tazobactam 50 mls @ 100 mls/hr 03/08/18 14:15 03/09/18 09:01 Sod 2.25 gm/ Dextrose IVPB 100 mls/hr Q8H-IV [facility]ED Administration Protocol Levothyroxine Sodium 112 mcg 03/07/18 07:00 03/09/18 06:31 Synthroid - PO 112 mcg DAILY@0700 [facility] Administration Mupirocin 1 applic 03/06/18 22:00 03/09/18 08:59 Bactroban Ointment (For Decolonization) - NS 03/11/18 21:59 1 applic BID [facility] Administration Ondansetron HCl 8 mg 03/06/18 12:53 Zofran Injection IVPB Q8H PRN NAUSEA Pantoprazole Sodium 40 mg 03/07/18 10:00 03/09/18 09:01 Protonix - PO 40 mg DAILY [facility] Administration Promethazine HCl 12.5 mg 03/06/18 12:53 Phenergan Injection - IVPB Q6H PRN NAUSEA-FOR RESCUE AFTER 15 MIN Simethicone 80 mg 03/06/18 12:53 Mylicon - PO Q4H PRN GAS ASSESSMENT/PLAN: 57 year old man with history of hypothyroidism, Afib w/ RVR stage 1 colon cancer with Sue procedure performed 02/22 (Dr. Ventura). Patient with urine leak from abdominal site (02/26) found to have L sided ureteral extravasation with L nephrostomy tube placement (02/28). PLAN #Septic Shock possibly 2/2 urine leak -patient is now normotensive -CX negative -current abx as per ID; day 8 of zosyn and diflucan -monitor hemodynamics -patient found to have RV strain on echo- suggestive of PE; currently on heparin drip - will leave the heparin drip for now in case patient goes for any further procedure #GI Abcess with urine leak and leukocytosis - Blood cultures (02/17) - without growth - Abscess culture (02/20) - lactose fermenting gram neg bacilli, coag pos staph , yeast - Per ID: Zosyn, Diflucan (for yeast growth) day 8 - Tylenol PRN for fever #Ureteral Extravasation with nephrostomy tube placementt. - L nephrostomy tube placed 02/28 - Lentz - monitor urine output -urine cx pending and creatinine pending from uroma -pateint was unable to have stent placed; Dr Persaud from [facility] will be seeing patient as he will be likely transferred there for procedure #Colon Ca s/p Henry procedure -f/u pathology -f/u oncology recs #Hypothyroidism -TSH within normal limits c/w home dose of levothyroxine F/E/N -LR @100mls/hr -monitor electrolytes - soft diet GI ppx - Protonix 40mg daily DVT ppx - heparin drip Problem List - Problems (1) Abdominal pain Code(s): R10.9 - UNSPECIFIED ABDOMINAL PAIN Qualifiers: Abdominal location: left lower quadrant Qualified Code(s): R10.32 - Left lower quadrant pain (2) Abnormal colonoscopy Code(s): R93.3 - ABNORMAL FINDINGS ON DX IMAGING OF PRT DIGESTIVE TRACT (3) Afib Code(s): I48.91 - UNSPECIFIED ATRIAL FIBRILLATION (4) Left ureteral injury Code(s): S37.10XA - UNSPECIFIED INJURY OF URETER, INITIAL ENCOUNTER Visit type - Emergency Visit Emergency Visit: Yes ED Registration Date: 02/13/18 Care time: The patient presented to the Emergency Department on the above date and was hospitalized for further evaluation of their emergent condition. - New Patient This patient is new to me today: No - Critical Care Critical Care patient: No
--- NOTE | 2018-03-09 12:02 | PN ---
Teaching Attending Note Name of Resident: Lilly Calvillo ATTENDING PHYSICIAN STATEMENT I saw and evaluated the patient. I reviewed the resident's note and discussed the case with the resident. I agree with the resident's findings and plan as documented. SUBJECTIVE: Patient seen and examined in the ICU. Pain now better controlled. Denies shortness of breath. Tolerating some PO intake. OBJECTIVE: Intake & Output 03/06/18 03/07/18 03/08/18 03/09/18 23:59 23:59 23:59 23:59 Intake Total 2881 2211 3605 1448 Output Total 4540 4185 2820 1585 Balance -1659 -1974 785 -137 Last Vital Signs Temp Pulse Resp BP Pulse Ox 98.5 F 60 14 109/95 96 03/09/18 09:57 03/09/18 10:00 03/09/18 10:00 03/09/18 10:00 03/09/18 09:53 Active Medications Acetaminophen (Tylenol -) 650 mg PO Q4H PRN PRN Reason: FEVER Last Admin: 03/09/18 05:36 Dose: 650 mg Amino Acids (Prosource No Carb Liquid Pkt) 30 ml PO BID@0800,1730 [facility] Last Admin: 03/09/18 08:52 Dose: 30 ml Benzocaine/Menthol (Cepacol Lozenge -) 1 each MM PRN PRN PRN Reason: SORE THROAT Chlorhexidine Gluconate (Hibiclens For Decolonization -) 1 applic TP HS [facility] Last Admin: 03/08/18 21:17 Dose: 1 applic Diphenhydramine HCl (Benadryl Injection -) 12.5 mg IVPUSH ONCE PRN PRN Reason: FOR ITCHING Heparin Sodium (Porcine) (Heparin -) 1,000 unit IVPUSH PRN PRN PRN Reason: Heparin Heparin Sodium (Porcine) (Heparin -) 5,000 unit IVPUSH PRN PRN PRN Reason: Heparin Fluconazole (Diflucan 200 Mg/Ns Premixed Ivpb -) 100 mls @ 100 mls/hr IVPB DAILY [facility] Last Admin: 03/09/18 09:00 Dose: 100 mls/hr HEPARIN SOD,PORK IN 0.45% NACL (Heparin-1/2ns 25,000 Units/500) 25,000 units in 500 mls @ 20 mls/hr IVPB TITR [facility]; Protocol Last Titration: 03/09/18 08:50 Dose: 1,000 units/hr, 20 mls/hr Lactated Ringer's (Lactated Ringers Solution) 1,000 ml in 1,000 mls @ 100 mls/ hr IV ASDIR [facility]ERED Last Admin: 03/09/18 08:54 Dose: 100 mls/hr Piperacillin Sod/Tazobactam (Sod 2.25 gm/ Dextrose) 50 mls @ 100 mls/hr IVPB Q8H-IV JERED; Protocol Last Admin: 03/09/18 09:01 Dose: 100 mls/hr Levothyroxine Sodium (Synthroid -) 112 mcg PO DAILY@0700 [facility] Last Admin: 03/09/18 06:31 Dose: 112 mcg Mupirocin (Bactroban Ointment (For Decolonization) -) 1 applic NS BID [facility] Stop: 03/11/18 21:59 Last Admin: 03/09/18 08:59 Dose: 1 applic Ondansetron HCl (Zofran Injection) 8 mg IVPB Q8H PRN PRN Reason: NAUSEA Pantoprazole Sodium (Protonix -) 40 mg PO DAILY [facility] Last Admin: 03/09/18 09:01 Dose: 40 mg Promethazine HCl (Phenergan Injection -) 12.5 mg IVPB Q6H PRN PRN Reason: NAUSEA-FOR RESCUE AFTER 15 MIN Simethicone (Mylicon -) 80 mg PO Q4H PRN PRN Reason: GAS Gen: Awake and alert, NAD Heart: RRR Lung: decreased breath sounds at the bases Abd: soft, nontender, +ostomy with stool Ext: no edema Intake & Output 03/06/18 03/07/18 03/08/18 03/09/18 23:59 23:59 23:59 23:59 Intake Total 2881 2211 3605 1448 Output Total 1900 4185 2820 1585 Balance -1659 -1974 785 -137 Last Vital Signs Temp Pulse Resp BP Pulse Ox 98.5 F 60 14 109/95 96 03/09/18 09:57 03/09/18 10:00 03/09/18 10:00 03/09/18 10:00 03/09/18 09:53 Active Medications Acetaminophen (Tylenol -) 650 mg PO Q4H PRN PRN Reason: FEVER Last Admin: 03/09/18 05:36 Dose: 650 mg Amino Acids (Prosource No Carb Liquid Pkt) 30 ml PO BID@0800,1730 [facility] Last Admin: 03/09/18 08:52 Dose: 30 ml Benzocaine/Menthol (Cepacol Lozenge -) 1 each MM PRN PRN PRN Reason: SORE THROAT Chlorhexidine Gluconate (Hibiclens For Decolonization -) 1 applic TP HS [facility] Last Admin: 03/08/18 21:17 Dose: 1 applic Diphenhydramine HCl (Benadryl Injection -) 12.5 mg IVPUSH ONCE PRN PRN Reason: FOR ITCHING Heparin Sodium (Porcine) (Heparin -) 1,000 unit IVPUSH PRN PRN PRN Reason: Heparin Heparin Sodium (Porcine) (Heparin -) 5,000 unit IVPUSH PRN PRN PRN Reason: Heparin Fluconazole (Diflucan 200 Mg/Ns Premixed Ivpb -) 100 mls @ 100 mls/hr IVPB DAILY [facility] Last Admin: 03/09/18 09:00 Dose: 100 mls/hr HEPARIN SOD,PORK IN 0.45% NACL (Heparin-1/2ns 25,000 Units/500) 25,000 units in 500 mls @ 20 mls/hr IVPB TITR [facility]; Protocol Last Titration: 03/09/18 08:50 Dose: 1,000 units/hr, 20 mls/hr Lactated Ringer's (Lactated Ringers Solution) 1,000 ml in 1,000 mls @ 100 mls/ hr IV ASDIR [facility] Last Admin: 03/09/18 08:54 Dose: 100 mls/hr Piperacillin Sod/Tazobactam (Sod 2.25 gm/ Dextrose) 50 mls @ 100 mls/hr IVPB Q8H-IV [facility]ED; Protocol Last Admin: 03/09/18 09:01 Dose: 100 mls/hr Levothyroxine Sodium (Synthroid -) 112 mcg PO DAILY@0700 [facility] Last Admin: 03/09/18 06:31 Dose: 112 mcg Mupirocin (Bactroban Ointment (For Decolonization) -) 1 applic NS BID [facility] Stop: 03/11/18 21:59 Last Admin: 03/09/18 08:59 Dose: 1 applic Ondansetron HCl (Zofran Injection) 8 mg IVPB Q8H PRN PRN Reason: NAUSEA Pantoprazole Sodium (Protonix -) 40 mg PO DAILY J[facility]ED Last Admin: 03/09/18 09:01 Dose: 40 mg Promethazine HCl (Phenergan Injection -) 12.5 mg IVPB Q6H PRN PRN Reason: NAUSEA-FOR RESCUE AFTER 15 MIN Simethicone (Mylicon -) 80 mg PO Q4H PRN PRN Reason: GAS ASSESSMENT AND PLAN: Colon CA S/P Sigmoid Colectomy 02/14 Post op Fecal Peritonitis/Perforated Diverticulum S/P ex-lap/abdominal washout/Left Colectomy/End Colostomy Paroxysmal Atrial Fibrillation s/p Acute Hypoxic Respiratory Failure Left Ureteral Leak s/p Nephrostomy placement Intra-abdominal Abscess s/p IR drainage Septic Shock resolved +Troponins likely Demand Ischemia Hypothyroidism Suspected persistent Ureteral Leak - Will be evaluated for tertiary care transfer - ABX per ID - monitor urine output, creatinine - pain control - incentive spirometry - PO as tolerated - O2 to keep Spo2 >90% - DVT prophylaxis - Floor Dr Rojo
--- NOTE | 2018-03-09 12:54 | PN ---
Progress Note, Physician History of Present Illness: patient stable no issues continues to be icu plan is to transfer for further procedure clinically stable breathing better remaining stable no hypotensive episodes - Current Medication List Current Medications: Active Medications Acetaminophen (Tylenol -) 650 mg PO Q4H PRN PRN Reason: FEVER Last Admin: 03/09/18 05:36 Dose: 650 mg Amino Acids (Prosource No Carb Liquid Pkt) 30 ml PO BID@0800,1730 [facility] Last Admin: 03/09/18 08:52 Dose: 30 ml Benzocaine/Menthol (Cepacol Lozenge -) 1 each MM PRN PRN PRN Reason: SORE THROAT Chlorhexidine Gluconate (Hibiclens For Decolonization -) 1 applic TP HS [facility] Last Admin: 03/08/18 21:17 Dose: 1 applic Diphenhydramine HCl (Benadryl Injection -) 12.5 mg IVPUSH ONCE PRN PRN Reason: FOR ITCHING Heparin Sodium (Porcine) (Heparin -) 1,000 unit IVPUSH PRN PRN PRN Reason: Heparin Heparin Sodium (Porcine) (Heparin -) 5,000 unit IVPUSH PRN PRN PRN Reason: Heparin Fluconazole (Diflucan 200 Mg/Ns Premixed Ivpb -) 100 mls @ 100 mls/hr IVPB DAILY [facility] Last Admin: 03/09/18 09:00 Dose: 100 mls/hr HEPARIN SOD,PORK IN 0.45% NACL (Heparin-1/2ns 25,000 Units/500) 25,000 units in 500 mls @ 20 mls/hr IVPB TITR [facility]; Protocol Last Titration: 03/09/18 08:50 Dose: 1,000 units/hr, 20 mls/hr Lactated Ringer's (Lactated Ringers Solution) 1,000 ml in 1,000 mls @ 100 mls/ hr IV ASDIR [facility] Last Admin: 03/09/18 08:54 Dose: 100 mls/hr Piperacillin Sod/Tazobactam (Sod 2.25 gm/ Dextrose) 50 mls @ 100 mls/hr IVPB Q8H-IV JERED; Protocol Last Admin: 03/09/18 09:01 Dose: 100 mls/hr Levothyroxine Sodium (Synthroid -) 112 mcg PO DAILY@0700 [facility] Last Admin: 03/09/18 06:31 Dose: 112 mcg Mupirocin (Bactroban Ointment (For Decolonization) -) 1 applic NS BID [facility] Stop: 03/11/18 21:59 Last Admin: 03/09/18 08:59 Dose: 1 applic Ondansetron HCl (Zofran Injection) 8 mg IVPB Q8H PRN PRN Reason: NAUSEA Pantoprazole Sodium (Protonix -) 40 mg PO DAILY [facility] Last Admin: 03/09/18 09:01 Dose: 40 mg Promethazine HCl (Phenergan Injection -) 12.5 mg IVPB Q6H PRN PRN Reason: NAUSEA-FOR RESCUE AFTER 15 MIN Simethicone (Mylicon -) 80 mg PO Q4H PRN PRN Reason: GAS - Objective Vital Signs: Vital Signs Temperature 98.5 F 03/09/18 09:57 Pulse Rate 84 03/09/18 12:00 Respiratory Rate 22 H 03/09/18 12:00 Blood Pressure 125/80 03/09/18 12:00 O2 Sat by Pulse Oximetry (%) 96 03/09/18 09:53 Constitutional: Yes: No Distress, Calm Cardiovascular: Yes: Regular Rate and Rhythm Respiratory: Yes: Regular, CTA Bilaterally Gastrointestinal: Yes: Normal Bowel Sounds, Soft Genitourinary: Yes: Other (urostomy in place ext nephrostomy tube in place) Musculoskeletal: Yes: WNL Extremities: Yes: WNL Neurological: Yes: Alert, Oriented Psychiatric: Yes: Alert, Oriented Labs: CBC, BMP 03/09/18 05:30 03/09/18 05:30 INR, PTT INR 1.33 (0.83-1.09) H 02/21/18 20:30 Assessment/Plan Problem List - Problems (1) Neoplasm of sigmoid colon Code(s): D49.0 - NEOPLASM OF UNSPECIFIED BEHAVIOR OF DIGESTIVE SYSTEM (2) Sigmoid thickening Code(s): K63.9 - DISEASE OF INTESTINE, UNSPECIFIED (3) Abdominal pain Code(s): R10.9 - UNSPECIFIED ABDOMINAL PAIN Qualifiers: Abdominal location: left lower quadrant Qualified Code(s): R10.32 - Left lower quadrant pain (4) Abnormal colonoscopy Code(s): R93.3 - ABNORMAL FINDINGS ON DX IMAGING OF PRT DIGESTIVE TRACT fever abd distension DVT ? pe ureteral tear left s/p ext nephrostomy in view of patients hypotension,close watch on the the patient ,as patient might have infection plan continue current mgmt abx urine cx pending rest as per the team monitor for resp failure rest as per icu close watch cc 38 min
--- NOTE | 2018-03-09 13:03 | PN ---
Physical Exam: SUBJECTIVE: Patient seen and examined Patient alert, stable, no acute distress. OBJECTIVE: Vital Signs Period Temp Pulse Resp BP Sys/Cavanaugh Pulse Ox Last 24 Hr 97.9 F-99.4 F 60-84 14-24 96-125/62-95 96-100 GENERAL: The patient is awake, alert, and fully oriented, in no acute distress, on NC HEAD: Normal with no signs of trauma. EYES: PERRLA, extraocular movements NECK: Trachea midline, full range of motion LUNGS: equal breath sounds clear to auscultation, no wheezes, no crackles, no accessory muscle use. HEART: Regular rate and rhythm, S1, S2 without murmur, rub or gallop. ABDOMEN: abdominal wound dressings, clean, dry, intact EXTREMITIES: 2+ pulses, warm, well-perfused, no edema. NEUROLOGICAL: Cranial nerves II through XII grossly intact. PSYCH: Normal mood, normal affect. SKIN: Warm, dry, normal turgor, no rashes or lesions noted Laboratory Results - last 24 hr 03/08/18 03/09/18 03/09/18 14:07 05:30 05:30 WBC RBC Hgb Hct MCV MCH MCHC RDW Plt Count MPV Absolute Neuts (auto) Neutrophils % Lymphocytes % Monocytes % Eosinophils % Basophils % Nucleated RBC % PTT (Actin FS) 197.0 H Sodium 142 Potassium 3.8 Chloride 106 Carbon Dioxide 28 Anion Gap 7 L BUN 12 Creatinine 0.7 Creat Clearance w eGFR > 60 Random Glucose 115 H Calcium 7.7 L Phosphorus 3.2 Magnesium 2.1 Total Bilirubin 0.3 AST 17 ALT 28 Alkaline Phosphatase 139 H Total Protein 6.3 L Albumin 1.9 L Urine Color Straw Urine Appearance Clear Urine pH 6.0 Ur Specific Erving 1.012 Urine Protein Negative Urine Glucose (UA) Negative Urine Ketones Negative Urine Blood 3+ H Urine Nitrite Negative Urine Bilirubin Negative Urine Urobilinogen Negative Ur Leukocyte Esterase Negative Urine WBC (Auto) 13 Urine RBC (Auto) 53 Urine Creatinine 03/09/18 03/09/18 03/09/18 05:30 07:33 11:00 WBC 8.8 RBC 3.27 L Hgb 8.8 L Hct 27.7 L MCV 84.6 MCH 27.0 MCHC 31.9 L RDW 21.0 H Plt Count 276 MPV 6.9 L Absolute Neuts (auto) 7.1 Neutrophils % 80.5 Lymphocytes % 10.7 D Monocytes % 7.2 Eosinophils % 1.2 Basophils % 0.4 Nucleated RBC % 0 PTT (Actin FS) 54.8 H Sodium Potassium Chloride Carbon Dioxide Anion Gap BUN Creatinine Creat Clearance w eGFR Random Glucose Calcium Phosphorus Magnesium Total Bilirubin AST ALT Alkaline Phosphatase Total Protein Albumin Urine Color Urine Appearance Urine pH Ur Specific Erving Urine Protein Urine Glucose (UA) Urine Ketones Urine Blood Urine Nitrite Urine Bilirubin Urine Urobilinogen Ur Leukocyte Esterase Urine WBC (Auto) Urine RBC (Auto) Urine Creatinine 30.0 Active Medications Generic Name Dose Route Start Last Admin Trade Name Freq PRN Reason Stop Dose Admin Acetaminophen 650 mg 03/06/18 12:53 03/09/18 05:36 Tylenol - PO 650 mg Q4H PRN Administration FEVER Amino Acids 30 ml 03/07/18 17:30 03/09/18 08:52 Prosource No Carb Liquid Pkt PO 30 ml BID@0800,1730 JERED Administration Benzocaine/Menthol 1 each 03/06/18 12:53 Cepacol Lozenge - MM PRN PRN SORE THROAT Chlorhexidine Gluconate 1 applic 03/06/18 22:00 03/08/18 21:17 Hibiclens For Decolonization - TP 1 applic HS JERED Administration Diphenhydramine HCl 12.5 mg 03/06/18 12:53 Benadryl Injection - IVPUSH ONCE PRN FOR ITCHING Heparin Sodium (Porcine) 1,000 unit 03/07/18 17:18 Heparin - IVPUSH PRN PRN Heparin Heparin Sodium (Porcine) 5,000 unit 03/07/18 17:18 Heparin - IVPUSH PRN PRN Heparin Fluconazole 100 mls @ 100 mls/hr 03/07/18 10:00 03/09/18 09:00 Diflucan 200 Mg/Ns Premixed Ivpb - IVPB 100 mls/hr DAILY JERED Administration HEPARIN SOD,PORK IN 0.45% NACL 25,000 units in 500 mls @ 20 mls/hr 03/07/18 17 :30 03/09/18 08:50 Heparin-1/2ns 25,000 Units/500 IVPB 1,000 units/hr TITR JERED 20 mls/hr Titration Protocol 1,000 UNITS/HR Lactated Ringer's 1,000 ml in 1,000 mls @ 100 mls/hr 03/08/18 08:47 03/09/18 08:54 Lactated Ringers Solution IV 100 mls/hr ASDIR JERED Administration Piperacillin Sod/Tazobactam 50 mls @ 100 mls/hr 03/08/18 14:15 03/09/18 09:01 Sod 2.25 gm/ Dextrose IVPB 100 mls/hr Q8H-IV JERED Administration Protocol Levothyroxine Sodium 112 mcg 03/07/18 07:00 03/09/18 06:31 Synthroid - PO 112 mcg DAILY@0700 JERED Administration Mupirocin 1 applic 03/06/18 22:00 03/09/18 08:59 Bactroban Ointment (For Decolonization) - NS 03/11/18 21:59 1 applic BID JERED Administration Ondansetron HCl 8 mg 03/06/18 12:53 Zofran Injection IVPB Q8H PRN NAUSEA Pantoprazole Sodium 40 mg 03/07/18 10:00 03/09/18 09:01 Protonix - PO 40 mg DAILY JERED Administration Promethazine HCl 12.5 mg 03/06/18 12:53 Phenergan Injection - IVPB Q6H PRN NAUSEA-FOR RESCUE AFTER 15 MIN Simethicone 80 mg 03/06/18 12:53 Mylicon - PO Q4H PRN GAS ASSESSMENT/PLAN: 57 year old man with history of hypothyroidism, Afib w/ RVR stage 1 colon cancer with Sue procedure performed 02/22 (Dr. Ventura). Patient with urine leak from abdominal site (02/26) found to have L sided ureteral extravasation with L nephrostomy tube placement (02/28). Brought to ICU s/p rapid response with tachycardia, hypotension and respiratory distress, satting into the 70s. Required NRB. Rhythm maintained sinus tachycardia and patient did not go into Afib w. RVR. Patient found to have LLE DVT with R heart strain on ECHO concerning for PE. PLAN Pulm Likely pulmonary embolism - ECHO (03/03) w/ R heart strain - pt unstable for CTA - Heparin gtt - saturating above 92% on NC - Early ambulation, IS Cardiac Tachycardia w/ hypotension during rapid response, pmhx Afib w/ RVR - elevated troponins down trending likely 2/2 demand Renal L ureteral extravasation s/p abdominal surgery, w/ L nephrostomy tube placement - 02/26: flush of urine from the abdomen, concerning for bladder or ureteral injury w/ CT Urogram showing left sided distal ureteral blush of contrast. - L nephrostomy tube placed 02/28 - Mazariegos - monitor urine output - unsuccessful ureteral stent placement attempt in [place] (03/07/18) - Per Renal advise transfer to [facility] for possible ureteral reconstitution, will have [facility] team evaluate pt prior to initiation of the transfer. ID GI abscess, feculent peritonitis 2/2 perforated diverticulum, urine leak w/ leukocytosis Rapid response possibly due to septic shock 2/2 urine leak w/in the abdomen - Blood cultures (02/17) - without growth - Abscess culture (02/20) - lactose fermenting gram neg bacilli, coag pos staph , yeast - Per ID: Zosyn, Diflucan - Tylenol PRN for fever Oncology Stage 1 Colon CA - Sue procedure - Followed by pathology and oncology. Endo Hypothyroidism - TSH within normal - Levothyroxine home med Analgesia - Oxycodone 5mg Q6H PRN F/E/N - soft diet - d/c fluids 2/2 concern over fluid overload GI ppx - Protonix 40mg daily DVT ppx - heparin Lines, Tubes: mazariegos, IR uroma drain, L nephrostomy drain Dispo: Transfer to telemetry. Pending possible transfer to [facility]. Visit type - Emergency Visit Emergency Visit: No - New Patient This patient is new to me today: No - Critical Care Critical Care patient: No
[2018-03-09 14:17] LABS: ANISOCYTOSIS 1+; MACROCYTOSIS 1+; PLATELET ESTIMATE NORMAL
--- NOTE | 2018-03-09 15:26 | PN ---
Progress Note, Physician Chief Complaint: abdominal pain and colon mass History of Present Illness: 57 yo male presenting to [facility] via private auto complaining of occasional lower left abdominal discomfort. stable post operatively after second laparotomy. Gas and air in the colostomy this morning, We were called to the bedside when the patinet was reporting more abdominal pain. He is noted to worseing distension despite left nephrostomy and mazariegos placement. Transferred to ICU after rapid response. Urinoma drained via ultrasound at the bedside. Since then he has been more stable. - Current Medication List Current Medications: Active Medications Acetaminophen (Tylenol -) 650 mg PO Q4H PRN PRN Reason: FEVER Last Admin: 03/09/18 14:17 Dose: 650 mg Amino Acids (Prosource No Carb Liquid Pkt) 30 ml PO BID@0800,1730 [facility] Last Admin: 03/09/18 08:52 Dose: 30 ml Benzocaine/Menthol (Cepacol Lozenge -) 1 each MM PRN PRN PRN Reason: SORE THROAT Chlorhexidine Gluconate (Hibiclens For Decolonization -) 1 applic TP HS [facility] Last Admin: 03/08/18 21:17 Dose: 1 applic Diphenhydramine HCl (Benadryl Injection -) 12.5 mg IVPUSH ONCE PRN PRN Reason: FOR ITCHING Heparin Sodium (Porcine) (Heparin -) 1,000 unit IVPUSH PRN PRN PRN Reason: Heparin Heparin Sodium (Porcine) (Heparin -) 5,000 unit IVPUSH PRN PRN PRN Reason: Heparin Fluconazole (Diflucan 200 Mg/Ns Premixed Ivpb -) 100 mls @ 100 mls/hr IVPB DAILY [facility] Last Admin: 03/09/18 09:00 Dose: 100 mls/hr HEPARIN SOD,PORK IN 0.45% NACL (Heparin-1/2ns 25,000 Units/500) 25,000 units in 500 mls @ 20 mls/hr IVPB TITR [facility]; Protocol Last Titration: 03/09/18 08:50 Dose: 1,000 units/hr, 20 mls/hr Lactated Ringer's (Lactated Ringers Solution) 1,000 ml in 1,000 mls @ 100 mls/ hr IV ASDIR [facility] Last Admin: 03/09/18 08:54 Dose: 100 mls/hr Piperacillin Sod/Tazobactam (Sod 2.25 gm/ Dextrose) 50 mls @ 100 mls/hr IVPB Q8H-IV JERED; Protocol Last Admin: 03/09/18 09:01 Dose: 100 mls/hr Levothyroxine Sodium (Synthroid -) 112 mcg PO DAILY@0700 [facility] Last Admin: 03/09/18 06:31 Dose: 112 mcg Mupirocin (Bactroban Ointment (For Decolonization) -) 1 applic NS BID [facility] Stop: 03/11/18 21:59 Last Admin: 03/09/18 08:59 Dose: 1 applic Ondansetron HCl (Zofran Injection) 8 mg IVPB Q8H PRN PRN Reason: NAUSEA Pantoprazole Sodium (Protonix -) 40 mg PO DAILY [facility] Last Admin: 03/09/18 09:01 Dose: 40 mg Promethazine HCl (Phenergan Injection -) 12.5 mg IVPB Q6H PRN PRN Reason: NAUSEA-FOR RESCUE AFTER 15 MIN Simethicone (Mylicon -) 80 mg PO Q4H PRN PRN Reason: GAS - Objective Vital Signs: Vital Signs Temperature 98.5 F 03/09/18 14:00 Pulse Rate 86 03/09/18 14:00 Respiratory Rate 21 H 03/09/18 14:00 Blood Pressure 105/70 03/09/18 14:00 O2 Sat by Pulse Oximetry (%) 96 03/09/18 09:53 Vital Signs Period Temp Pulse Resp BP Sys/Cavanaugh Pulse Ox Last 24 Hr 98.5 F-99.4 F 60-86 14-24 96-125/62-95 96-100 Intake & Output 03/08/18 03/09/18 03/09/18 23:59 07:59 15:59 Intake Total 530 878 970 Output Total 198 735 1287 Balance -390 353 -440 Intake: IV 530 828 HEPARIN-1/2NS 25,000 80 218 UNITS/500 25,000 units In 500 ml @ 1,000 UNITS/HR 20 mls/hr IVPB TITR [facility] Rx#:[id number] LACTATED RINGERS SOLUTION 400 610 1,000 ml In 1,000 ml @ 100 mls/hr IV ASDIR [facility] Rx#:[id number] RT wrist 50 IVPB 50 150 Oral 820 Output: Drainage 20 25 460 Left Lateral Abdomen 20 25 460 Urine 900 500 950 Mazariegos 300 Left Nephrostomy 650 200 550 Void 250 400 Other: Voiding Method Urinal Urinal Bowel Movement No Body Mass Index (BMI) 34.9 Constitutional: Yes: No Distress, Calm, Thin Eyes: Yes: Conjunctiva Clear, EOM Intact HENT: Yes: Atraumatic, Normocephalic Neck: Yes: Supple, Trachea Midline Cardiovascular: Yes: Regular Rate and Rhythm, S1, S2 Respiratory: Yes: Regular, CTA Bilaterally Gastrointestinal: Yes: Normal Bowel Sounds, Soft, Abdomen, Obese. No: Tenderness ...Rectal Exam: Yes: Deferred Genitourinary: No: CVA Tenderness - Left, CVA Tenderness - Right Musculoskeletal: No: Muscle Pain, Muscle Weakness Extremities: No: Cool, Cyanosis Edema: No Peripheral Pulses WNL: Yes Peripheral Pulses: Left Radial: 2+, Right Radial: 2+, Left Doralis Pedis: 2+, Right Dorsalis Pedis: 2+ Integumentary: No: Jaundice, Pressure Ulcer, Rash Wound/Incision: Yes: Clean/Dry, Well Approximated, Dressing Dry and Intact, Unapproximated Neurological: Yes: Alert, Oriented Psychiatric: Yes: Alert, Oriented Labs: CBC, BMP 12/06/18 05:30 1206/18 05:30 INR, PTT INR 1.33 (0.83-1.09) H 11//18 20:30 Problem List - Problems (1) Neoplasm of sigmoid colon Assessment/Plan: POD#23 s/p sigmoid colectomy and primary anastomosis (due to sigmoid colon cancer) POD#16 s/p completion left colectomy and amado's (due to perforated diverticulum distal to anatomosis) POD#1 s/p cystoscopy by urology showed likely left ureteral transection. he will require transfer to [facility] to tertiary care Dr. Cristian Kennedy MD, urologic oncology for reimplantation versus reconstruction over stent. Advace as tolerated IVF hydration antiemetic OOB and ambulate encourage IS family discussion is in order, with daughter will follow Code(s): D49.0 - NEOPLASM OF UNSPECIFIED BEHAVIOR OF DIGESTIVE SYSTEM (2) Sigmoid thickening Code(s): K63.9 - DISEASE OF INTESTINE, UNSPECIFIED (3) Abdominal pain Code(s): R10.9 - UNSPECIFIED ABDOMINAL PAIN Qualifiers: Abdominal location: left lower quadrant Qualified Code(s): R10.32 - Left lower quadrant pain (4) Abnormal colonoscopy Code(s): R93.3 - ABNORMAL FINDINGS ON DX IMAGING OF PRT DIGESTIVE TRACT
[2018-03-09] MEDS ORDERED: ONDANSETRON 4 MG/2 ML VIAL IVPB PRN (16:03)
[2018-03-09] MEDS ORDERED: BENZOCAINE/MENTH/CETYLPYRD CL 1 EACH LOZENGE MM PRN (16:03)
[2018-03-09] MEDS ORDERED: HEPARIN NA (PORCINE) 5,000 UNITS/ML 1ML VIAL IVPUSH PRN ×3 (16:03)
[2018-03-09] MEDS ORDERED: PROMETHAZINE HCL 25 MG/1 ML VIAL IVPB PRN (16:03)
[2018-03-09] MEDS ORDERED: SIMETHICONE 80 MG TAB.CHEW (FP) PO PRN (16:03)
[2018-03-09] MEDS ORDERED: ACETAMINOPHEN 325 MG TABLET (FP) PO ONE (20:54)
[2018-03-09] MEDS ORDERED: MUPIROCIN 2% TOPICAL OINTMENT FOR DECOLONIZATION NS SCH (22:00)
[2018-03-09] MEDS ORDERED: CHLORHEXIDINE GLUCONATE 4% CLEANSER FOR DECOLONIZATION TP SCH (22:00)
[2018-03-10] MEDS ORDERED: DEXTROSE 5%-WATER - 50 ML IVPB ONE ×2 (01:54→09:41)
[2018-03-10] MEDS ORDERED: PIPERACILLIN/TAZOBACTAM 2.25 GM VIAL IVPB ONE ×2 (01:54→09:40)
[2018-03-10] MEDS: PIPERACILLIN/TAZOB 2.25 GM 2.25 GM in DEXTROSE 5%-WATER - 50 ML IVPB SCH ×2 (02:00→09:49)
[2018-03-10] MEDS: LEVOTHYROXINE NA 112 MCG TABLET (FP) PO SCH (06:07)
[2018-03-10 07:26] LABS: BASO % 0.5 % (0-2.0); HEMATOCRIT 25.7 % (35.4-49); HEMOGLOBIN 8.8 GM/dL (11.7-16.9); LYMPH % 20.5 % (8-40); MCH 28.5 pg (25.7-33.7); MCHC 34.3 g/dl (32.0-35.9); MEAN CELL VOLUME 83.3 fl (80-96); MEAN PLT VOLUME 7.2 fl (7.5-11.1); PLATELET COUNT 263 K/MM3 (134-434); RBC 3.08 M/mm3 (4.00-5.60); RDW 20.7 % (11.9-15.9); WHITE BLOOD COUNT 5.1 K/mm3 (4.0-10.0)
[2018-03-10 07:59] LABS: ALK PHOS 134 U/L (45-117); ANION GAP 7 MMOL/L (8-16); BILIRUBIN,TOTAL 0.4 mg/dL (0.2-1); BLOOD UREA NITROGEN 8 mg/dL (7-18); CALCIUM 7.9 mg/dL (8.5-10.1); CHLORIDE 104 mmol/L (98-107); CO2 27 mmol/L (21-32); CREATININE 0.5 mg/dL (0.55-1.3); GLUCOSE,RANDOM 82 mg/dL (74-106); MAGNESIUM 2.2 mg/dL (1.8-2.4); PHOSPHOROUS 3.9 mg/dL (2.5-4.9); SGOT/AST 12 U/L (15-37); SGPT/ALT 24 U/L (13-61); SODIUM 139 mmol/L (136-145); TOT PROT 6.1 g/dl (6.4-8.2)
[2018-03-10] MEDS: AMINO ACIDS/PROTEIN HYDROLYS 30 ML LIQUID.PKT PO SCH ×2 (08:48→17:07)
[2018-03-10] MEDS ORDERED: PT OWN MED DRAWER 7, Y5N ONE (09:40)
[2018-03-10] MEDS: PANTOPRAZOLE 40 MG TABLET (FP) PO SCH (09:47)
[2018-03-10] MEDS: HEPARIN SOD,PORK IN 0.45% NACL 25,000 UNITS/500 ML INFUS.BAG IVPB SCH (09:49)
--- NOTE | 2018-03-10 12:53 | PN ---
Physical Exam: SUBJECTIVE: Patient seen and examined at bedside. no acute events overnight ; patient is not in any pain; he denies any CP/SOB/N/V fevrs or chills. he denies any abdominal pain , and is tolerating diet. OBJECTIVE: Vital Signs Period Temp Pulse Resp BP Sys/Cavanaugh Pulse Ox Last 24 Hr 97.8 F-98.5 F 65-87 18-21 96-121/60-70 96-99 GENERAL: The patient is awake, alert, and fully oriented, in no acute distress. EYES: no scleral icterus NECK: no JVD no lymphadenopathy LUNGS: CTA B/L; no rales, rhonchi or wheezing HEART: Regular rate and rhythm, S1, S2 without murmur, rub or gallop. ABDOMEN: Soft, nontender, nondistended, normoactive bowel sounds, no guarding, no rebound, no hepatosplenomegaly, no masses nephrostomy bag in place EXTREMITIES: 2+ pulses, warm, well-perfused, no edema. PSYCH: Normal mood, normal affect. SKIN: Warm, dry, normal turgor, no rashes or lesions noted Laboratory Results - last 24 hr 03/09/18 03/09/18 03/10/18 05:30 11:00 05:30 WBC RBC Hgb Hct MCV MCH MCHC RDW Plt Count MPV Absolute Neuts (auto) Neutrophils % Lymphocytes % Monocytes % Eosinophils % Basophils % Nucleated RBC % Hypochromia 0 Platelet Estimate Normal Polychromasia 0 Poikilocytosis 0 Anisocytosis 1+ Microcytosis 1+ Macrocytosis 1+ PTT (Actin FS) 51.1 H Sodium Potassium Chloride Carbon Dioxide Anion Gap BUN Creatinine Creat Clearance w eGFR Random Glucose Calcium Phosphorus Magnesium Total Bilirubin AST ALT Alkaline Phosphatase Total Protein Albumin Urine Creatinine 30.0 03/10/18 03/10/18 05:30 05:30 WBC 5.1 RBC 3.08 L Hgb 8.8 L Hct 25.7 L MCV 83.3 MCH 28.5 MCHC 34.3 RDW 20.7 H Plt Count 263 MPV 7.2 L Absolute Neuts (auto) 3.5 Neutrophils % 68.0 Lymphocytes % 20.5 D Monocytes % 9.0 Eosinophils % 2.0 Basophils % 0.5 Nucleated RBC % 0 Hypochromia Platelet Estimate Polychromasia Poikilocytosis Anisocytosis Microcytosis Macrocytosis PTT (Actin FS) Sodium 139 Potassium 4.0 Chloride 104 Carbon Dioxide 27 Anion Gap 7 L BUN 8 Creatinine 0.5 L Creat Clearance w eGFR > 60 Random Glucose 82 Calcium 7.9 L Phosphorus 3.9 Magnesium 2.2 Total Bilirubin 0.4 AST 12 L ALT 24 Alkaline Phosphatase 134 H Total Protein 6.1 L Albumin 2.0 L Urine Creatinine Active Medications Generic Name Dose Route Start Last Admin Trade Name Freq PRN Reason Stop Dose Admin Acetaminophen 650 mg 03/09/18 16:03 Tylenol - PO Q4H PRN FEVER Amino Acids 30 ml 03/09/18 17:30 03/10/18 08:48 Prosource No Carb Liquid Pkt PO 30 ml BID@0800,1730 JERED Administration Benzocaine/Menthol 1 each 03/09/18 16:03 Cepacol Lozenge - MM DAILY PRN SORE THROAT Diphenhydramine HCl 12.5 mg 03/09/18 16:03 Benadryl Injection - IVPUSH 03/14/18 16:02 ONCE PRN FOR ITCHING Heparin Sodium (Porcine) 1,000 unit 03/09/18 16:03 Heparin - IVPUSH PRN PRN Heparin Heparin Sodium (Porcine) 5,000 unit 03/09/18 16:03 Heparin - IVPUSH PRN PRN Heparin Fluconazole 100 mls @ 100 mls/hr 03/10/18 10:00 Diflucan 200 Mg/Ns Premixed Ivpb - IVPB DAILY JERED HEPARIN SOD,PORK IN 0.45% NACL 25,000 units in 500 mls @ 20 mls/hr 03/09/18 16 :03 03/10/18 09:49 Heparin-1/2ns 25,000 Units/500 IVPB 1,000 units/hr TITR JERED 20 mls/hr Administration Protocol 1,000 UNITS/HR Lactated Ringer's 1,000 ml in 1,000 mls @ 100 mls/hr 03/09/18 16:03 Lactated Ringers Solution IV ASDIR JERED Piperacillin Sod/Tazobactam 50 mls @ 100 mls/hr 03/09/18 18:00 03/10/18 09:49 Sod 2.25 gm/ Dextrose IVPB 100 mls/hr Q8H-IV JERED Administration Protocol Levothyroxine Sodium 112 mcg 03/10/18 07:00 12/07/18 06:07 Synthroid - PO 112 mcg DAILY@0700 JERED Administration Ondansetron HCl 8 mg 03/09/18 16:03 Zofran Injection IVPB Q8H PRN NAUSEA Pantoprazole Sodium 40 mg 03/10/18 10:00 03/10/18 09:47 Protonix - PO 40 mg DAILY JERED Administration Simethicone 80 mg 03/09/18 16:03 Mylicon - PO Q4H PRN GAS ASSESSMENT/PLAN: 57 year old man with history of hypothyroidism, Afib w/ RVR stage 1 colon cancer with Sue procedure performed 02/22 (Dr. Ventura). Patient with urine leak from abdominal site (02/26) found to have L sided ureteral extravasation with L nephrostomy tube placement (02/28). PLAN #Septic Shock possibly 2/2 urine leak -patient is now normotensive -CX negative -current abx as per ID; day 8 of zosyn and diflucan -monitor hemodynamics -patient found to have RV strain on echo- suggestive of PE; currently on heparin drip - will leave the heparin drip for now in case patient goes for any further procedure #GI Abcess with urine leak and leukocytosis - Blood cultures (02/17) - without growth - Abscess culture (02/20) - lactose fermenting gram neg bacilli, coag pos staph , yeast - Per ID: Zosyn, Diflucan (for yeast growth) day 9 - Tylenol PRN for fever #Ureteral Extravasation with nephrostomy tube placementt. - L nephrostomy tube placed 02/28 - Lentz - monitor urine output from nephrostomy tube -urine cx pending and creatinine pending from uroma -pateint was unable to have stent placed; Dr Persaud from [facility] will be seeing patient as he will be likely transferred there for procedure #Colon Ca s/p Henry procedure -f/u pathology -f/u oncology recs #Hypothyroidism -TSH within normal limits c/w home dose of levothyroxine F/E/N -LR @100mls/hr -monitor electrolytes - soft diet GI ppx - Protonix 40mg daily DVT ppx - heparin drip Problem List - Problems (1) Abdominal pain Code(s): R10.9 - UNSPECIFIED ABDOMINAL PAIN Qualifiers: Abdominal location: left lower quadrant Qualified Code(s): R10.32 - Left lower quadrant pain (2) Abnormal colonoscopy Code(s): R93.3 - ABNORMAL FINDINGS ON DX IMAGING OF PRT DIGESTIVE TRACT (3) Afib Code(s): I48.91 - UNSPECIFIED ATRIAL FIBRILLATION (4) Left ureteral injury Code(s): S37.10XA - UNSPECIFIED INJURY OF URETER, INITIAL ENCOUNTER Visit type - Emergency Visit Emergency Visit: Yes ED Registration Date: 02/13/18 Care time: The patient presented to the Emergency Department on the above date and was hospitalized for further evaluation of their emergent condition. - New Patient This patient is new to me today: No - Critical Care Critical Care patient: No
--- NOTE | 2018-03-10 13:19 | PN ---
Progress Note, Physician History of Present Illness: patient stable txed to the floor final plan awaited - Current Medication List Current Medications: Active Medications Acetaminophen (Tylenol -) 650 mg PO Q4H PRN PRN Reason: FEVER Amino Acids (Prosource No Carb Liquid Pkt) 30 ml PO BID@0800,1730 [facility] Last Admin: 03/10/18 08:48 Dose: 30 ml Benzocaine/Menthol (Cepacol Lozenge -) 1 each MM DAILY PRN PRN Reason: SORE THROAT Diphenhydramine HCl (Benadryl Injection -) 12.5 mg IVPUSH ONCE PRN PRN Reason: FOR ITCHING Stop: 03/14/18 16:02 Heparin Sodium (Porcine) (Heparin -) 1,000 unit IVPUSH PRN PRN PRN Reason: Heparin Heparin Sodium (Porcine) (Heparin -) 5,000 unit IVPUSH PRN PRN PRN Reason: Heparin Fluconazole (Diflucan 200 Mg/Ns Premixed Ivpb -) 100 mls @ 100 mls/hr IVPB DAILY JERED HEPARIN SOD,PORK IN 0.45% NACL (Heparin-1/2ns 25,000 Units/500) 25,000 units in 500 mls @ 20 mls/hr IVPB TITR JERED; Protocol Last Admin: 03/10/18 09:49 Dose: 1,000 units/hr, 20 mls/hr Lactated Ringer's (Lactated Ringers Solution) 1,000 ml in 1,000 mls @ 100 mls/ hr IV ASDIR JERED Piperacillin Sod/Tazobactam (Sod 2.25 gm/ Dextrose) 50 mls @ 100 mls/hr IVPB Q8H-IV JERED; Protocol Last Admin: 03/10/18 09:49 Dose: 100 mls/hr Levothyroxine Sodium (Synthroid -) 112 mcg PO DAILY@0700 [facility] Last Admin: 03/10/18 06:07 Dose: 112 mcg Ondansetron HCl (Zofran Injection) 8 mg IVPB Q8H PRN PRN Reason: NAUSEA Pantoprazole Sodium (Protonix -) 40 mg PO DAILY [facility] Last Admin: 03/10/18 09:47 Dose: 40 mg Simethicone (Mylicon -) 80 mg PO Q4H PRN PRN Reason: GAS - Objective Vital Signs: Vital Signs Temperature 98.2 F 03/10/18 11:00 Pulse Rate 75 03/10/18 11:00 Respiratory Rate 20 03/10/18 11:00 Blood Pressure 118/66 03/10/18 11:00 O2 Sat by Pulse Oximetry (%) 99 03/10/18 09:00 Constitutional: Yes: No Distress, Calm Cardiovascular: Yes: S1, S2 Respiratory: Yes: Regular, Poor Air Entry (bases) Gastrointestinal: Yes: Normal Bowel Sounds, Soft ...Rectal Exam: Yes: Other (ext nephrostomy and urostomy bag in place) Musculoskeletal: Yes: WNL Extremities: Yes: WNL Neurological: Yes: Alert, Oriented Psychiatric: Yes: Alert, Oriented Labs: CBC, BMP 03/10/18 05:30 03/10/18 05:30 INR, PTT INR 1.33 (0.83-1.09) H 02/21/18 20:30 Assessment/Plan Problem List - Problems (1) Neoplasm of sigmoid colon Code(s): D49.0 - NEOPLASM OF UNSPECIFIED BEHAVIOR OF DIGESTIVE SYSTEM (2) Sigmoid thickening Code(s): K63.9 - DISEASE OF INTESTINE, UNSPECIFIED (3) Abdominal pain Code(s): R10.9 - UNSPECIFIED ABDOMINAL PAIN Qualifiers: Abdominal location: left lower quadrant Qualified Code(s): R10.32 - Left lower quadrant pain (4) Abnormal colonoscopy Code(s): R93.3 - ABNORMAL FINDINGS ON DX IMAGING OF PRT DIGESTIVE TRACT fever abd distension DVT ? pe ureteral tear left s/p ext nephrostomy in view of patients hypotension,close watch on the the patient ,as patient might have infection plan continue current mgmt urine cx noted will stop abx and watch rest as per the team
[2018-03-10] MEDS: FLUCONAZOLE 200 MG/NS 100 ML IVPB SCH (14:00)
--- NOTE | 2018-03-10 17:19 | PN ---
Teaching Attending Note Name of Resident: Betty Cardoza ATTENDING PHYSICIAN STATEMENT I saw and evaluated the patient. I reviewed the resident's note and discussed the case with the resident. I agree with the resident's findings and plan as documented with exceptions below. SUBJECTIVE: Patient seen and examined. Denies any abdominal pain, chest pain, dyspnea, or dizziness. Tolerating diet well. OBJECTIVE: Vital Signs Period Temp Pulse Resp BP Sys/Cavanaugh Pulse Ox Last 24 Hr 97.8 F-98.6 F 65-75 18-20 97-121/61-66 96-99 Intake & Output 03/07/18 03/08/18 03/09/18 03/10/18 23:59 23:59 23:59 23:59 Intake Total 2211 3605 3241 2090 Output Total 4185 2820 3075 1500 Balance -1974 785 166 590 General: sitting in bed in no acute distress Chest: CTAB, no rales or wheezing Abdomen:Soft, clean midline dressing, colostomy with brown watery stool, Left pigtail with yellow drainage, left nephrostomy with sanguinous drainage, NT, unchanged distension Extremities; no edema Home Medications Medication Instructions Recorded Levothyroxine [Synthroid -] 100 mcg PO DAILY 02/13/18 Active Medications Acetaminophen (Tylenol -) 650 mg PO Q4H PRN PRN Reason: FEVER Amino Acids (Prosource No Carb Liquid Pkt) 30 ml PO BID@0800,1730 [facility] Last Admin: 03/10/18 17:07 Dose: 30 ml Benzocaine/Menthol (Cepacol Lozenge -) 1 each MM DAILY PRN PRN Reason: SORE THROAT Diphenhydramine HCl (Benadryl Injection -) 12.5 mg IVPUSH ONCE PRN PRN Reason: FOR ITCHING Stop: 03/14/18 16:02 Heparin Sodium (Porcine) (Heparin -) 1,000 unit IVPUSH PRN PRN PRN Reason: Heparin Heparin Sodium (Porcine) (Heparin -) 5,000 unit IVPUSH PRN PRN PRN Reason: Heparin Fluconazole (Diflucan 200 Mg/Ns Premixed Ivpb -) 100 mls @ 100 mls/hr IVPB DAILY [facility] Last Admin: 03/10/18 14:00 Dose: 100 mls/hr HEPARIN SOD,PORK IN 0.45% NACL (Heparin-1/2ns 25,000 Units/500) 25,000 units in 500 mls @ 20 mls/hr IVPB TITR JERED; Protocol Last Admin: 03/10/18 09:49 Dose: 1,000 units/hr, 20 mls/hr Lactated Ringer's (Lactated Ringers Solution) 1,000 ml in 1,000 mls @ 100 mls/ hr IV ASDIR JERED Levothyroxine Sodium (Synthroid -) 112 mcg PO DAILY@0700 [facility] Last Admin: 03/10/18 06:07 Dose: 112 mcg Ondansetron HCl (Zofran Injection) 8 mg IVPB Q8H PRN PRN Reason: NAUSEA Pantoprazole Sodium (Protonix -) 40 mg PO DAILY [facility] Last Admin: 03/10/18 09:47 Dose: 40 mg Simethicone (Mylicon -) 80 mg PO Q4H PRN PRN Reason: GAS Laboratory Results - last 24 hr 03/10/18 03/10/18 03/10/18 05:30 05:30 05:30 WBC 5.1 RBC 3.08 L Hgb 8.8 L Hct 25.7 L MCV 83.3 MCH 28.5 MCHC 34.3 RDW 20.7 H Plt Count 263 MPV 7.2 L Absolute Neuts (auto) 3.5 Neutrophils % 68.0 Lymphocytes % 20.5 D Monocytes % 9.0 Eosinophils % 2.0 Basophils % 0.5 Nucleated RBC % 0 PTT (Actin FS) 51.1 H Sodium 139 Potassium 4.0 Chloride 104 Carbon Dioxide 27 Anion Gap 7 L BUN 8 Creatinine 0.5 L Creat Clearance w eGFR > 60 Random Glucose 82 Calcium 7.9 L Phosphorus 3.9 Magnesium 2.2 Total Bilirubin 0.4 AST 12 L ALT 24 Alkaline Phosphatase 134 H Total Protein 6.1 L Albumin 2.0 L Microbiology 03/09/18 07:40 Urine - Urine Nephrostomy Tube Left Urine Culture - Final NO GROWTH OBTAINED 03/02/18 08:40 Blood - Peripheral Venous Blood Culture - Final NO GROWTH AFTER 5 DAYS INCUBATION 03/02/18 08:35 Blood - Peripheral Venous Blood Culture - Final NO GROWTH AFTER 5 DAYS INCUBATION 03/01/18 17:00 Ascites Gram Stain - Final 03/01/18 17:00 Ascites Body Fluid Culture - Final Yeast Like Organism 03/01/18 17:00 Ascites Anaerobic Culture - Final NO ANAEROBES WERE ISOLATED 03/01/18 17:00 Ascites AFB Smear Concentration - Final 03/01/18 17:00 Ascites Mycobacterial Culture - Preliminary 03/02/18 10:00 Urine - Urine Lentz Urine Culture - Final NO GROWTH OBTAINED 03/01/18 17:00 Ascites RADHA Preparation - Preliminary 03/01/18 17:00 Ascites Fungal Culture - Preliminary 02/24/18 14:50 Blood - Peripheral Venous Blood Culture - Final NO GROWTH AFTER 5 DAYS INCUBATION 02/24/18 14:30 Blood - Peripheral Venous Blood Culture - Final NO GROWTH AFTER 5 DAYS INCUBATION 02/22/18 21:40 Blood - Peripheral Venous Blood Culture - Final NO GROWTH AFTER 5 DAYS INCUBATION 02/22/18 20:15 Blood - Peripheral Venous Blood Culture - Final NO GROWTH AFTER 5 DAYS INCUBATION 02/20/18 14:30 Abscess Gram Stain - Final 02/20/18 14:30 Abscess Body Fluid Culture - Final Escherichia Coli Staphylococcus Aureus Yeast Like Organism 02/20/18 14:30 Abscess Anaerobic Culture - Final Bacteroides Fragilis 02/22/18 23:24 Urine - Urine Lentz Urine Culture - Final NO GROWTH OBTAINED 02/17/18 20:00 Blood - Peripheral Venous Blood Culture - Final NO GROWTH AFTER 5 DAYS INCUBATION 02/17/18 17:00 Blood - Peripheral Venous Blood Culture - Final NO GROWTH AFTER 5 DAYS INCUBATION 02/17/18 16:40 Urine - Urine Clean Catch Urine Culture - Final NO GROWTH OBTAINED ASSESSMENT AND PLAN: 57yo M with PMH hypothyroid presenetd to the ER with intermittent LLQ pain with recent colonoscopy with finding suspicious for malignancy. Pt underwent sigmoid colectomy on 02/14 which patient developed pneumoperitoneum and abdominal abscess and underwent ex-lap with abdominal washout and complete L hemicolectomy with Hartmans due to perforated diverticulum on 02/21. Pt went into AFib with RVR during the procedure which he self converted. Course complicated by L uretral injury with Ureteral extravsation seen with PCN tube was placed. CHANGE CONTROL SPECIALIST called on 03/01 where pt was found to have a uroma where bedside pigtail placed and patient was transferred to ICU. [facility] patient and family - Stage 1 colon ca s/p resection and Hartmans- s/p surgeries as stated above with wound vac and colostomy in place. Further wound care and wound vac management per surgical team. tolerating solid food. pain control - Sepsis due to Urine leak-s/p pigtail placement bedside by IR draining clear urine. Urology unable to place stent, procedure abandoned. Discussed with Dr. Grubbs, Dr. Foster (Uro oncologist) from [facility] to see patient. Follow up recs for possible surgical plans and transfer to tertiary care center. Pigtail drainage cr 30 and about 985 drainage last [address] Yang, recommend eventual rescontruction once active intra-abdominal inflammation improved, will continue to monitor closely for now. - Abdominal abscess due to perforated diverticulum- s/p Hartmans 02/21. + polymicrobial (E.Coli, B.Fragilis, Yeast) on zosyn and fluconazole. leukocytosis resolved. repeat Cx neg ID on board - Hypotension - resolved. suspect from significant output and poor oral intake. PO intake improved, BP stable, continue IVF for now. Monitor for recurrent sepsis. - +LLE DVT and suspected PE- was unable to CTA due to instability, R heart strain seen on echo suggestive of PE. on heparin ggt. will leave for now until after no more procedures are planned. not a candidate for any intervention. will need NOAC for minimum of 6 months. - Tropinemia- demand due to sepsis and hypoxia. Trop peaked at 0.86 and trended down. no indication for further monitoring of troponins. echo pending - PAF- no repeat episodes of afib noted. no further workup at this time - pseudohypocalcemia- corrected Ca 8.8 Plan discussed with patient, and family at bedside in detail, all questions answered. Encourage OOB, PT eval.
[2018-03-10] MEDS: ACETAMINOPHEN 325 MG TABLET (FP) PO PRN (22:17)
[2018-03-11] MEDS: HEPARIN SOD,PORK IN 0.45% NACL 25,000 UNITS/500 ML INFUS.BAG IVPB SCH ×2 (02:38→16:03)
[2018-03-11] MEDS: LACTATED RINGERS SOLUTION 1,000 ML/1,000 ML INFUS.BAG IV SCH ×3 (02:38→16:59)
--- NOTE | 2018-03-11 05:16 | PN ---
Physical Exam: SUBJECTIVE: Patient seen and examined at bed side , no acute events over night , tolerting solid food , passing reanna in colostomy bags, surgery sight clean and dry. denies any fever, chills, N/V/D/C, denies any chest pain or SOB, herat racing, tele with some PVCs otherwise unremarkable. asking to have new colostomy bag and change the dress , nurse and surgeon was informed. OBJECTIVE: Vital Signs Period Temp Pulse Resp BP Sys/Cavanaugh Pulse Ox Last 24 Hr 98.1 F-98.6 F 63-75 18-20 97-121/62-68 99 GENERAL: AAOx3 in NAD HEAD: NC/AT EYES: EOMI, Conjunctiva clear, sclera anicteric ENT: moist mucous membrane NECK: Supple, no JVD LUNGS: CTA B/L, no crackles no wheezing no accessory muscle use. HEART: RRR, NSR, normal s1, s2, murmur no M/R/G ABDOMEN: Soft, mild distention ,mid surgical sight clean and dry , mild tenderness +BS all 4 Q, no CVA Tenderness, left side nephrostomy with serginous drainage and left pigtail with yellow drainage LOWER EXTREMITIES: no edema, +2DP pulse, NEUROLOGICAL: No focal deficit. Normal speech. gait not observed. PSYCHIATRIC: Cooperative. Good eye contact. Appropriate mood and affect. SKIN: Warm, dry, Laboratory Results - last 24 hr 03/10/18 03/10/18 03/10/18 05:30 05:30 05:30 WBC 5.1 RBC 3.08 L Hgb 8.8 L Hct 25.7 L MCV 83.3 MCH 28.5 MCHC 34.3 RDW 20.7 H Plt Count 263 MPV 7.2 L Absolute Neuts (auto) 3.5 Neutrophils % 68.0 Lymphocytes % 20.5 D Monocytes % 9.0 Eosinophils % 2.0 Basophils % 0.5 Nucleated RBC % 0 PTT (Actin FS) 51.1 H Sodium 139 Potassium 4.0 Chloride 104 Carbon Dioxide 27 Anion Gap 7 L BUN 8 Creatinine 0.5 L Creat Clearance w eGFR > 60 Random Glucose 82 Calcium 7.9 L Phosphorus 3.9 Magnesium 2.2 Total Bilirubin 0.4 AST 12 L ALT 24 Alkaline Phosphatase 134 H Total Protein 6.1 L Albumin 2.0 L Active Medications Generic Name Dose Route Start Last Admin Trade Name Freq PRN Reason Stop Dose Admin Acetaminophen 650 mg 03/09/18 16:03 03/10/18 22:17 Tylenol - PO 650 mg Q4H PRN Administration FEVER Amino Acids 30 ml 03/09/18 17:30 03/10/18 17:07 Prosource No Carb Liquid Pkt PO 30 ml BID@0800,1730 JERED Administration Benzocaine/Menthol 1 each 03/09/18 16:03 Cepacol Lozenge - MM DAILY PRN SORE THROAT Diphenhydramine HCl 12.5 mg 03/09/18 16:03 Benadryl Injection - IVPUSH 03/14/18 16:02 ONCE PRN FOR ITCHING Heparin Sodium (Porcine) 1,000 unit 03/09/18 16:03 Heparin - IVPUSH PRN PRN Heparin Heparin Sodium (Porcine) 5,000 unit 03/09/18 16:03 Heparin - IVPUSH PRN PRN Heparin Fluconazole 100 mls @ 100 mls/hr 03/10/18 10:00 03/10/18 14:00 Diflucan 200 Mg/Ns Premixed Ivpb - IVPB 100 mls/hr DAILY JERED Administration HEPARIN SOD,PORK IN 0.45% NACL 25,000 units in 500 mls @ 20 mls/hr 03/09/18 16 :03 03/11/18 02:38 Heparin-1/2ns 25,000 Units/500 IVPB 1,000 units/hr TITR JERED 20 mls/hr Administration Protocol 1,000 UNITS/HR Lactated Ringer's 1,000 ml in 1,000 mls @ 100 mls/hr 03/09/18 16:03 03/11/18 02:38 Lactated Ringers Solution IV 100 mls/hr ASDIR JERED Administration Levothyroxine Sodium 112 mcg 03/10/18 07:00 03/10/18 06:07 Synthroid - PO 112 mcg DAILY@0700 JERED Administration Ondansetron HCl 8 mg 03/09/18 16:03 Zofran Injection IVPB Q8H PRN NAUSEA Pantoprazole Sodium 40 mg 03/10/18 10:00 03/10/18 09:47 Protonix - PO 40 mg DAILY JERED Administration Simethicone 80 mg 03/09/18 16:03 Mylicon - PO Q4H PRN GAS CBC, BMP 03/11/18 05:40 03/11/18 05:40 ASSESSMENT/PLAN: 57 year old man with history of hypothyroidism, Afib w/ RVR stage 1 colon cancer with Sue procedure performed 02/22 (Dr. Ventura). Patient with urine leak from abdominal site (02/26) found to have L sided ureteral extravasation with L nephrostomy tube placement (02/28). # R/O PE * Echo with right heart strain * DVTS positive for right leg DVTs * CTA pending * cont Hep Drip , NOAC upon Dc for 6 months #Stage 1 colon ca s/p resection and Hartmans- s/p surgeries with wound vac and colostomy in place. * tolerating diet and passing flayus and stool * wound care per surgery * pain control # Anemia due to surgery blood loss vs chronic disease (colonic cancer ) * no active bleeding * H/H stable * f/u out pt. #Septic Shock possibly 2/2 urine leak , resolved * completed 10 days course of zosyn , monitor off abx per ID * decreased IV fluids to 75 CC/hr #Abdominal Abcess due to perforated diverticulum with urine leak and leukocytosis * negative Blood culture * Abscess culture :E.Coli, B.Fragilis, Yeast * monitor off abx #Ureteral Extravasation with nephrostomy tube placementt. * L nephrostomy tube placed 02/28 with siraginous drainage * Lentz * monitor urine output from nephrostomy tube 1300 * urine cx no growth * failed stent placement , will retry per urology after abdominal condition is more stable #Hypothyroidism * TSH within normal limits * cont levothyroxine 100 mcg AM # P AFIB , stabel , no kore episode , cont monitor in Tele # elevated trop , peaked at 0.86 due to sepsis vs hypoxemia or both * Echo with right heart strain , no need to trend for now, monitor for chest pain or SOB #F/E/N * LR @75mls/hr * monitor electrolytes * regular soft diet #GI proph * Protonix 40mg daily #DVT ppx * heparin drip # de conditioning * encourage out pf Bed * PT evaluation Visit type - Emergency Visit Emergency Visit: Yes ED Registration Date: 02/13/18 Care time: The patient presented to the Emergency Department on the above date and was hospitalized for further evaluation of their emergent condition. - New Patient This patient is new to me today: No - Critical Care Critical Care patient: No - Discharge Referral Referred to [facility] No
[2018-03-11] MEDS: LEVOTHYROXINE NA 112 MCG TABLET (FP) PO SCH (06:15)
[2018-03-11 08:24] LABS: HEMATOCRIT 28.9 % (35.4-49); HEMOGLOBIN 9.2 GM/dL (11.7-16.9); MCH 26.7 pg (25.7-33.7); MEAN CELL VOLUME 83.5 fl (80-96); MEAN PLT VOLUME 6.9 fl (7.5-11.1); PLATELET COUNT 247 K/MM3 (134-434); RBC 3.46 M/mm3 (4.00-5.60); RDW 20.7 % (11.9-15.9); WHITE BLOOD COUNT 5.1 K/mm3 (4.0-10.0)
[2018-03-11] MEDS ORDERED: PT OWN MED DRAWER 7, Y5N ONE (08:36)
[2018-03-11] MEDS: AMINO ACIDS/PROTEIN HYDROLYS 30 ML LIQUID.PKT PO SCH ×2 (09:00→16:56)
[2018-03-11 09:04] LABS: ANION GAP 11 MMOL/L (8-16); BLOOD UREA NITROGEN 8 mg/dL (7-18); CALCIUM 7.8 mg/dL (8.5-10.1); CHLORIDE 105 mmol/L (98-107); CO2 25 mmol/L (21-32); CREATININE 0.5 mg/dL (0.55-1.3); GLUCOSE,RANDOM 84 mg/dL (74-106); PHOSPHOROUS 3.8 mg/dL (2.5-4.9); POTASSIUM 3.9 mmol/L (3.5-5.1); SODIUM 141 mmol/L (136-145)
[2018-03-11] MEDS: PANTOPRAZOLE 40 MG TABLET (FP) PO SCH (09:09)
[2018-03-11] MEDS: FLUCONAZOLE 200 MG/NS 100 ML IVPB SCH (09:10)
--- NOTE | 2018-03-11 10:54 | PN ---
Teaching Attending Note Name of Resident: Joaquín Boggs ATTENDING PHYSICIAN STATEMENT I saw and evaluated the patient. I reviewed the resident's note and discussed the case with the resident. I agree with the resident's findings and plan as documented with exceptions below. SUBJECTIVE: Patient seen and examined. No abdominal pain, nausea, vomiting or diarrhea. Feels well. OBJECTIVE: Vital Signs Period Temp Pulse Resp BP Sys/Cavanaugh Pulse Ox Last 24 Hr 98.1 F-98.6 F 63-75 18-20 97-128/62-75 Intake & Output 03/08/18 03/09/18 03/10/18 03/11/18 23:59 23:59 23:59 23:59 Intake Total 3605 3241 2490 300 Output Total 2820 3075 2450 1970 Balance 785 166 40 -1670 General: sitting in bed in no acute distress Chest: CTAB, no rales or wheezing Abdomen:Soft, unchanged distension, positive bowel sounds, clean dressing, left colostomy with soft brown stool, left pigtail with yellow drainage, left nephrostomy tube with clearing sanguinous drainage Extremities: no edema Active Medications Acetaminophen (Tylenol -) 650 mg PO Q4H PRN PRN Reason: FEVER Last Admin: 03/10/18 22:17 Dose: 650 mg Amino Acids (Prosource No Carb Liquid Pkt) 30 ml PO BID@0800,1730 [facility] Last Admin: 03/11/18 09:00 Dose: 30 ml Benzocaine/Menthol (Cepacol Lozenge -) 1 each MM DAILY PRN PRN Reason: SORE THROAT Diphenhydramine HCl (Benadryl Injection -) 12.5 mg IVPUSH ONCE PRN PRN Reason: FOR ITCHING Stop: 03/14/18 16:02 Heparin Sodium (Porcine) (Heparin -) 1,000 unit IVPUSH PRN PRN PRN Reason: Heparin Heparin Sodium (Porcine) (Heparin -) 5,000 unit IVPUSH PRN PRN PRN Reason: Heparin Fluconazole (Diflucan 200 Mg/Ns Premixed Ivpb -) 100 mls @ 100 mls/hr IVPB DAILY [facility] Last Admin: 03/11/18 09:10 Dose: 100 mls/hr HEPARIN SOD,PORK IN 0.45% NACL (Heparin-1/2ns 25,000 Units/500) 25,000 units in 500 mls @ 20 mls/hr IVPB TITR JERED; Protocol Last Admin: 03/11/18 02:38 Dose: 1,000 units/hr, 20 mls/hr Lactated Ringer's (Lactated Ringers Solution) 1,000 ml in 1,000 mls @ 75 mls/ hr IV ASDIR JERED Levothyroxine Sodium (Synthroid -) 112 mcg PO DAILY@0700 [facility] Last Admin: 03/11/18 06:15 Dose: 112 mcg Ondansetron HCl (Zofran Injection) 8 mg IVPB Q8H PRN PRN Reason: NAUSEA Pantoprazole Sodium (Protonix -) 40 mg PO DAILY [facility] Last Admin: 03/11/18 09:09 Dose: 40 mg Simethicone (Mylicon -) 80 mg PO Q4H PRN PRN Reason: GAS Laboratory Results - last 24 hr 03/11/18 03/11/18 03/11/18 05:40 05:40 05:40 WBC 5.1 RBC 3.46 L Hgb 9.2 L Hct 28.9 L MCV 83.5 MCH 26.7 MCHC 32.0 RDW 20.7 H Plt Count 247 MPV 6.9 L PTT (Actin FS) 55.7 H Sodium 141 Potassium 3.9 Chloride 105 Carbon Dioxide 25 Anion Gap 11 BUN 8 Creatinine 0.5 L Creat Clearance w eGFR > 60 Random Glucose 84 Calcium 7.8 L Phosphorus 3.8 Magnesium 2.0 ASSESSMENT AND PLAN: 57yo M with PMH hypothyroid presenetd to the ER with intermittent LLQ pain with recent colonoscopy with finding suspicious for malignancy. Pt underwent sigmoid colectomy on 02/14 which patient developed pneumoperitoneum and abdominal abscess and underwent ex-lap with abdominal washout and complete L hemicolectomy with Hartmans due to perforated diverticulum on 02/21. Pt went into AFib with RVR during the procedure which he self converted. Course complicated by L uretral injury with Ureteral extravsation seen with PCN tube was placed. PHARMACY TECHNICIAN INPATIENT called on 03/01 where pt was found to have a uroma where bedside pigtail placed and patient was transferred to ICU. patient care was transferred to [facility] service at request of patient and family - Stage 1 colon ca s/p resection and Hartmans- s/p surgeries as stated above with wound vac and colostomy in place. Further wound care and wound vac management per surgical team. tolerating solid food. pain control - Sepsis due to Urine leak-s/p pigtail placement bedside by IR draining clear urine. Urology unable to place stent, procedure abandoned. Discussed with Dr. Grubbs, Dr. Foster (Uro oncologist) from [facility] to see patient. Follow up recs for possible surgical plans and transfer to tertiary care center. Pigtail drainage cr 30 and ongoing drainage. Discussed with Dr. Yang, recommend eventual rescontruction once active intra-abdominal inflammation improved, will continue to monitor closely for now. - Abdominal abscess due to perforated diverticulum- s/p Hartmans 02/21. + polymicrobial (E.Coli, B.Fragilis, Yeast) on zosyn and fluconazole. leukocytosis resolved. repeat Cx neg, ID input noted, monitor off abx. - Hypotension - resolved. suspect from significant output and poor oral intake. PO intake improved, BP stable,decrease IVF for now. Monitor for recurrent sepsis. - +LLE DVT and suspected PE- Will do CTA to address PE as hemodynamics stable now. R heart strain seen on echo suggestive of PE. on heparin ggt. will leave for now until after no more procedures are planned. not a candidate for any intervention. will need NOAC for minimum of 6 months. - Tropinemia- demand due to sepsis and hypoxia. Trop peaked at 0.86 and trended down. no indication for further monitoring of troponins. echo noted. - PAF- no repeat episodes of afib noted. no further workup at this time - pseudohypocalcemia- corrected Ca 8.8 Plan discussed with patient, in detail, all questions answered. Discussed with nursing. Encourage OOB, PT eval.
--- NOTE | 2018-03-11 12:09 | PN ---
Progress Note, Physician Chief Complaint: abdominal pain and colon mass History of Present Illness: 57 yo male presenting to [facility] ER via private auto complaining of occasional lower left abdominal discomfort. stable post operatively after second laparotomy. Gas and air in the colostomy this morning, We were called to the bedside when the patinet was reporting more abdominal pain. He is noted to worseing distension despite left nephrostomy and mazariegos placement. Transferred to ICU after rapid response. Urinoma drained via ultrasound at the bedside. Since then he has been more stable. - Current Medication List Current Medications: Active Medications Acetaminophen (Tylenol -) 650 mg PO Q4H PRN PRN Reason: FEVER Last Admin: 03/10/18 22:17 Dose: 650 mg Amino Acids (Prosource No Carb Liquid Pkt) 30 ml PO BID@0800,1730 [facility] Last Admin: 03/11/18 09:00 Dose: 30 ml Benzocaine/Menthol (Cepacol Lozenge -) 1 each MM DAILY PRN PRN Reason: SORE THROAT Diphenhydramine HCl (Benadryl Injection -) 12.5 mg IVPUSH ONCE PRN PRN Reason: FOR ITCHING Stop: 03/14/18 16:02 Heparin Sodium (Porcine) (Heparin -) 1,000 unit IVPUSH PRN PRN PRN Reason: Heparin Heparin Sodium (Porcine) (Heparin -) 5,000 unit IVPUSH PRN PRN PRN Reason: Heparin Fluconazole (Diflucan 200 Mg/Ns Premixed Ivpb -) 100 mls @ 100 mls/hr IVPB DAILY [facility] Last Admin: 03/11/18 09:10 Dose: 100 mls/hr HEPARIN SOD,PORK IN 0.45% NACL (Heparin-1/2ns 25,000 Units/500) 25,000 units in 500 mls @ 20 mls/hr IVPB TITR [facility]; Protocol Last Admin: 03/11/18 02:38 Dose: 1,000 units/hr, 20 mls/hr Lactated Ringer's (Lactated Ringers Solution) 1,000 ml in 1,000 mls @ 75 mls/ hr IV ASDIR [facility] Levothyroxine Sodium (Synthroid -) 112 mcg PO DAILY@0700 [facility] Last Admin: 03/11/18 06:15 Dose: 112 mcg Ondansetron HCl (Zofran Injection) 8 mg IVPB Q8H PRN PRN Reason: NAUSEA Pantoprazole Sodium (Protonix -) 40 mg PO DAILY [facility] Last Admin: 03/11/18 09:09 Dose: 40 mg Simethicone (Mylicon -) 80 mg PO Q4H PRN PRN Reason: GAS - Objective Vital Signs: Vital Signs Temperature 98.2 F 03/11/18 06:00 Pulse Rate 67 03/11/18 06:00 Respiratory Rate 20 03/11/18 06:00 Blood Pressure 128/75 03/11/18 06:00 O2 Sat by Pulse Oximetry (%) 99 03/10/18 09:00 Vital Signs Period Temp Pulse Resp BP Sys/Cavanaugh Pulse Ox Last 24 Hr 98.1 F-98.6 F 63-73 18-20 97-128/62-75 Constitutional: Yes: No Distress, Calm, Cachectic, Thin Eyes: Yes: Conjunctiva Clear, EOM Intact HENT: Yes: Atraumatic, Normocephalic Neck: Yes: Supple, Trachea Midline Cardiovascular: Yes: Regular Rate and Rhythm, S1, S2 Respiratory: Yes: Regular, CTA Bilaterally Gastrointestinal: Yes: Normal Bowel Sounds, Soft, Hypoactive Bowel Sounds. No: Tenderness ...Rectal Exam: Yes: Deferred Genitourinary: No: CVA Tenderness - Left, CVA Tenderness - Right Musculoskeletal: No: Muscle Pain, Muscle Weakness Extremities: No: Cool, Cyanosis Edema: No Peripheral Pulses WNL: Yes Peripheral Pulses: Left Radial: 2+, Right Radial: 2+, Left Doralis Pedis: 2+, Right Dorsalis Pedis: 2+ Integumentary: No: Jaundice Wound/Incision: Yes: Clean/Dry, Dressing Dry and Intact, Unapproximated. No: Draining, Reddened, Bleeding Neurological: Yes: Alert, Oriented Psychiatric: Yes: Alert, Oriented Labs: CBC, BMP 03/11/18 05:40 03/11/18 05:40 INR, PTT INR 1.33 (0.83-1.09) H 02/21/18 20:30 Problem List - Problems (1) Neoplasm of sigmoid colon Assessment/Plan: POD#25 s/p sigmoid colectomy and primary anastomosis (due to sigmoid colon cancer) POD#18 s/p completion left colectomy and amado's (due to perforated diverticulum distal to anatomosis) POD#3 s/p cystoscopy by urology showed likely left ureteral transection. he will require transfer [facility] to tertiary care Dr. Cristian Kennedy MD, urologic oncology for reimplantation versus reconstruction over stent. I had family discussion with daughter and all parties are in agreement with the plan. Advace as tolerated IVF hydration antiemetic OOB and ambulate encourage IS will follow Code(s): D49.0 - NEOPLASM OF UNSPECIFIED BEHAVIOR OF DIGESTIVE SYSTEM (2) Sigmoid thickening Code(s): K63.9 - DISEASE OF INTESTINE, UNSPECIFIED (3) Abdominal pain Code(s): R10.9 - UNSPECIFIED ABDOMINAL PAIN Qualifiers: Abdominal location: left lower quadrant Qualified Code(s): R10.32 - Left lower quadrant pain (4) Abnormal colonoscopy Code(s): R93.3 - ABNORMAL FINDINGS ON DX IMAGING OF PRT DIGESTIVE TRACT
--- NOTE | 2018-03-11 14:27 | PN ---
Progress Note, Physician History of Present Illness: Pt seen and examined. Events reviewed. Currently patient is alert, afebrile, denies any abd pain. - Current Medication List Current Medications: Active Medications Acetaminophen (Tylenol -) 650 mg PO Q4H PRN PRN Reason: FEVER Last Admin: 03/10/18 22:17 Dose: 650 mg Amino Acids (Prosource No Carb Liquid Pkt) 30 ml PO BID@0800,1730 [facility] Last Admin: 03/11/18 09:00 Dose: 30 ml Benzocaine/Menthol (Cepacol Lozenge -) 1 each MM DAILY PRN PRN Reason: SORE THROAT Diphenhydramine HCl (Benadryl Injection -) 12.5 mg IVPUSH ONCE PRN PRN Reason: FOR ITCHING Stop: 03/14/18 16:02 Heparin Sodium (Porcine) (Heparin -) 1,000 unit IVPUSH PRN PRN PRN Reason: Heparin Heparin Sodium (Porcine) (Heparin -) 5,000 unit IVPUSH PRN PRN PRN Reason: Heparin Fluconazole (Diflucan 200 Mg/Ns Premixed Ivpb -) 100 mls @ 100 mls/hr IVPB DAILY [facility] Last Admin: 03/11/18 09:10 Dose: 100 mls/hr HEPARIN SOD,PORK IN 0.45% NACL (Heparin-1/2ns 25,000 Units/500) 25,000 units in 500 mls @ 20 mls/hr IVPB TITR [facility]; Protocol Last Admin: 03/11/18 02:38 Dose: 1,000 units/hr, 20 mls/hr Lactated Ringer's (Lactated Ringers Solution) 1,000 ml in 1,000 mls @ 75 mls/ hr IV ASDIR [facility] Levothyroxine Sodium (Synthroid -) 112 mcg PO DAILY@0700 [facility] Last Admin: 03/11/18 06:15 Dose: 112 mcg Ondansetron HCl (Zofran Injection) 8 mg IVPB Q8H PRN PRN Reason: NAUSEA Pantoprazole Sodium (Protonix -) 40 mg PO DAILY [facility] Last Admin: 03/11/18 09:09 Dose: 40 mg Simethicone (Mylicon -) 80 mg PO Q4H PRN PRN Reason: GAS - Objective Vital Signs: Vital Signs Temperature 98.1 F 03/11/18 10:00 Pulse Rate 68 03/11/18 10:00 Respiratory Rate 20 03/11/18 10:00 Blood Pressure 128/70 03/11/18 10:00 O2 Sat by Pulse Oximetry (%) 99 03/10/18 09:00 Constitutional: Yes: No Distress, Calm Cardiovascular: Yes: Regular Rate and Rhythm Respiratory: Yes: Regular Gastrointestinal: Yes: Normal Bowel Sounds, Soft, Other (+ wound vac draining serosanguinous fluid, +colostomy) Integumentary: Yes: WNL Neurological: Yes: Alert, Oriented Labs: CBC, BMP 03/11/18 05:40 03/11/18 05:40 INR, PTT INR 1.33 (0.83-1.09) H 02/21/18 20:30 Problem List - Problems (1) Afib Code(s): I48.91 - UNSPECIFIED ATRIAL FIBRILLATION (2) Hypothyroid Code(s): E03.9 - HYPOTHYROIDISM, UNSPECIFIED (3) Sigmoid thickening Code(s): K63.9 - DISEASE OF INTESTINE, UNSPECIFIED Assessment/Plan Colon ca s/p resection/Hartmans - wound vac in place Sepsis Uroma s/p Urostomy Abdominal abscess perforated diverticulum- s/p Hartmans LLE DVT r/o PE -- pt s/p course of antibiotics -- currently afebrile, without distress -- cont. monitor rest of care per primary
[2018-03-12] MEDS: LEVOTHYROXINE NA 112 MCG TABLET (FP) PO SCH (06:47)
[2018-03-12] MEDS: HEPARIN SOD,PORK IN 0.45% NACL 25,000 UNITS/500 ML INFUS.BAG IVPB SCH ×2 (06:49→15:35)
[2018-03-12 07:56] LABS: BASO % 0.6 % (0-2.0); HEMATOCRIT 27.6 % (35.4-49); HEMOGLOBIN 9.5 GM/dL (11.7-16.9); LYMPH % 22.4 % (8-40); MCH 28.2 pg (25.7-33.7); MCHC 34.4 g/dl (32.0-35.9); MEAN PLT VOLUME 7.1 fl (7.5-11.1); MONO % 10.3 % (3.8-10.2); NEUT % 63.7 % (42.8-82.8); PLATELET COUNT 275 K/MM3 (134-434); RBC 3.37 M/mm3 (4.00-5.60); RDW 20.4 % (11.9-15.9); WHITE BLOOD COUNT 4.9 K/mm3 (4.0-10.0)
[2018-03-12 08:48] LABS: ALBUMIN 2.1 g/dl (3.4-5.0); ALK PHOS 138 U/L (45-117); ANION GAP 10 MMOL/L (8-16); BILIRUBIN,TOTAL 0.4 mg/dL (0.2-1); BLOOD UREA NITROGEN 7 mg/dL (7-18); CALCIUM 8.1 mg/dL (8.5-10.1); CHLORIDE 105 mmol/L (98-107); CO2 25 mmol/L (21-32); CREATININE 0.4 mg/dL (0.55-1.3); GLUCOSE,RANDOM 83 mg/dL (74-106); MAGNESIUM 2.1 mg/dL (1.8-2.4); POTASSIUM 3.8 mmol/L (3.5-5.1); SGOT/AST 19 U/L (15-37); SGPT/ALT 32 U/L (13-61); SODIUM 140 mmol/L (136-145); TOT PROT 6.3 g/dl (6.4-8.2)
[2018-03-12] MEDS ORDERED: PT OWN MED DRAWER 7, Y5N ONE (08:52)
[2018-03-12] MEDS: PANTOPRAZOLE 40 MG TABLET (FP) PO SCH (09:26)
[2018-03-12] MEDS: FLUCONAZOLE 200 MG/NS 100 ML IVPB SCH (09:27)
[2018-03-12] MEDS: AMINO ACIDS/PROTEIN HYDROLYS 30 ML LIQUID.PKT PO SCH ×2 (09:27→17:13)
--- NOTE | 2018-03-12 11:38 | PN ---
Physical Exam: SUBJECTIVE: Patient seen and examined, denies any chest pain, palpitations, dyspnea, dizziness, new abdominal pain. Some soreness around the wound vac site. Overall feels well and motivated for discharge. OBJECTIVE: Vital Signs Period Temp Pulse Resp BP Sys/Cavanaugh Pulse Ox Last 24 Hr 97.8 F-99.2 F 56-76 18-20 102-112/58-67 95-97 GENERAL:sitting in bed in no acute distress Chest: CTAB, no rales or wheezing, good effort Abdomen:Soft, unchanged distension, wound vac now in midline incision, left colostomy, LLQ pigtail catheter, left nephrostomy tube placed positive bowel sounds, mild tenderness around wound vac tubing, otherwise non tendern, no voluntary or involuntary guarding or rigidity Extremities: no edema CVS;S1S2 RRR neck: soft, supple, no JVD Laboratory Results - last 24 hr 03/12/18 03/12/18 03/12/18 05:30 05:30 05:30 WBC 4.9 RBC 3.37 L Hgb 9.5 L Hct 27.6 L MCV 82.0 MCH 28.2 MCHC 34.4 RDW 20.4 H Plt Count 275 MPV 7.1 L Absolute Neuts (auto) 3.1 Neutrophils % 63.7 Lymphocytes % 22.4 Monocytes % 10.3 H Eosinophils % 3.0 Basophils % 0.6 Nucleated RBC % 0 PTT (Actin FS) 55.9 H Sodium 140 Potassium 3.8 Chloride 105 Carbon Dioxide 25 Anion Gap 10 BUN 7 Creatinine 0.4 L Creat Clearance w eGFR > 60 Random Glucose 83 Calcium 8.1 L Phosphorus 4.0 Magnesium 2.1 Total Bilirubin 0.4 AST 19 ALT 32 Alkaline Phosphatase 138 H Total Protein 6.3 L Albumin 2.1 L Active Medications Generic Name Dose Route Start Last Admin Trade Name Freq PRN Reason Stop Dose Admin Acetaminophen 650 mg 03/09/18 16:03 03/10/18 22:17 Tylenol - PO 650 mg Q4H PRN Administration FEVER Amino Acids 30 ml 03/09/18 17:30 03/12/18 09:27 Prosource No Carb Liquid Pkt PO 30 ml BID@0800,1730 JERED Administration Benzocaine/Menthol 1 each 03/09/18 16:03 Cepacol Lozenge - MM DAILY PRN SORE THROAT Diphenhydramine HCl 12.5 mg 03/09/18 16:03 Benadryl Injection - IVPUSH 03/14/18 16:02 ONCE PRN FOR ITCHING Heparin Sodium (Porcine) 1,000 unit 03/09/18 16:03 Heparin - IVPUSH PRN PRN Heparin Heparin Sodium (Porcine) 5,000 unit 03/09/18 16:03 Heparin - IVPUSH PRN PRN Heparin Fluconazole 100 mls @ 100 mls/hr 03/10/18 10:00 03/12/18 09:27 Diflucan 200 Mg/Ns Premixed Ivpb - IVPB 100 mls/hr DAILY JERED Administration HEPARIN SOD,PORK IN 0.45% NACL 25,000 units in 500 mls @ 20 mls/hr 03/09/18 16 :03 03/12/18 06:49 Heparin-1/2ns 25,000 Units/500 IVPB 1,000 units/hr TITR JERED 20 mls/hr Administration Protocol 1,000 UNITS/HR Lactated Ringer's 1,000 ml in 1,000 mls @ 75 mls/hr 03/11/18 10:17 03/11/18 16:57 Lactated Ringers Solution IV 75 mls/hr ASDIR [facility]ERED Administration Levothyroxine Sodium 112 mcg 03/10/18 07:00 03/12/18 06:47 Synthroid - PO 112 mcg DAILY@0700 JER[facility] Administration Ondansetron HCl 8 mg 03/09/18 16:03 Zofran Injection IVPB Q8H PRN NAUSEA Pantoprazole Sodium 40 mg 03/10/18 10:00 03/12/18 09:26 Protonix - PO 40 mg DAILY JERED Administration Simethicone 80 mg 03/09/18 16:03 Mylicon - PO Q4H PRN GAS CTA chest results reviewed telemetry reviewed ASSESSMENT/PLAN: 57yo M with PMH hypothyroid presenetd to the ER with intermittent LLQ pain with recent colonoscopy with finding suspicious for malignancy. Pt underwent sigmoid colectomy on 02/14 which patient developed pneumoperitoneum and abdominal abscess and underwent ex-lap with abdominal washout and complete L hemicolectomy with Hartmans due to perforated diverticulum on 02/21. Pt went into AFib with RVR during the procedure which he self converted. Course complicated by L uretral injury with Ureteral extravsation seen with PCN tube was placed. FLIGHT AGENT called on 03/01 where pt was found to have a uroma where bedside pigtail placed and patient was transferred to ICU. patient care was transferred to [facility] at request of patient and family - Stage 1 colon ca s/p resection and Hartmans- s/p surgeries as stated above with wound vac and colostomy in place. Further wound care and wound vac management per surgical team. tolerating solid food. pain control - Sepsis due to Urine leak-s/p pigtail placement bedside by IR draining clear urine. Urology unable to place stent, procedure abandoned. Discussed with Dr. Grubbs, Dr. Foster (Uro oncologist) from [facility] to see patient. Pigtail drainage cr 30 and ongoing drainage. discussed with Dr. Ventura, case was discussed by him with Dr. Foster, suggests 1 step procedure for ureter/colostomy once active inflammation subsides. DIscuss with IR about salvage determiner pigtail option and follow up with surgery for additional recs/tertiary care center transfer options. - Abdominal abscess due to perforated diverticulum- s/p Hartmans 02/21. + polymicrobial (E.Coli, B.Fragilis, Yeast) on zosyn and fluconazole. leukocytosis resolved. repeat Cx neg, ID input noted, monitor off abx. - Hypotension - resolved. suspect from significant output and poor oral intake. PO intake improved, BP stable,decrease IVF for now. Monitor for recurrent sepsis. - Acute Pulmonary embolism/LLE DVT with right heart strain-heparin drip, transition to lovenox in 24 hours if no bloody drainage noted. Will need atleast 6 months of anti-coagulation. - Tropinemia- demand due to sepsis and hypoxia. Trop peaked at 0.86 and trended down. no indication for further monitoring of troponins. echo noted. - PAF- no repeat episodes of afib noted. no further workup at this time - pseudohypocalcemia- Montior ca levels. Plan discussed with patient, in detail with help of FACUNDO Cason, all questions answered, updated on current CTA findings and disposition plan. Discussed with nursing. Encourage OOB, PT eval. Visit type - Emergency Visit Emergency Visit: Yes ED Registration Date: 02/13/18 Care time: The patient presented to the Emergency Department on the above date and was hospitalized for further evaluation of their emergent condition. - New Patient This patient is new to me today: No - Critical Care Critical Care patient: No - Discharge Referral Referred to [facility] No
--- NOTE | 2018-03-12 13:03 | PN ---
Progress Note, Physician History of Present Illness: Pt seen and examined. He has no specific complaints currently. - Current Medication List Current Medications: Active Medications Acetaminophen (Tylenol -) 650 mg PO Q4H PRN PRN Reason: FEVER Last Admin: 03/10/18 22:17 Dose: 650 mg Amino Acids (Prosource No Carb Liquid Pkt) 30 ml PO BID@0800,1730 [facility] Last Admin: 03/12/18 09:27 Dose: 30 ml Benzocaine/Menthol (Cepacol Lozenge -) 1 each MM DAILY PRN PRN Reason: SORE THROAT Diphenhydramine HCl (Benadryl Injection -) 12.5 mg IVPUSH ONCE PRN PRN Reason: FOR ITCHING Stop: 03/14/18 16:02 Heparin Sodium (Porcine) (Heparin -) 1,000 unit IVPUSH PRN PRN PRN Reason: Heparin Heparin Sodium (Porcine) (Heparin -) 5,000 unit IVPUSH PRN PRN PRN Reason: Heparin Fluconazole (Diflucan 200 Mg/Ns Premixed Ivpb -) 100 mls @ 100 mls/hr IVPB DAILY [facility] Last Admin: 03/12/18 09:27 Dose: 100 mls/hr HEPARIN SOD,PORK IN 0.45% NACL (Heparin-1/2ns 25,000 Units/500) 25,000 units in 500 mls @ 20 mls/hr IVPB TITR [facility]; Protocol Last Admin: 03/12/18 06:49 Dose: 1,000 units/hr, 20 mls/hr Lactated Ringer's (Lactated Ringers Solution) 1,000 ml in 1,000 mls @ 75 mls/ hr IV ASDIR [facility] Last Admin: 03/11/18 16:57 Dose: 75 mls/hr Levothyroxine Sodium (Synthroid -) 112 mcg PO DAILY@0700 [facility] Last Admin: 03/12/18 06:47 Dose: 112 mcg Ondansetron HCl (Zofran Injection) 8 mg IVPB Q8H PRN PRN Reason: NAUSEA Pantoprazole Sodium (Protonix -) 40 mg PO DAILY [facility] Last Admin: 03/12/18 09:26 Dose: 40 mg Simethicone (Mylicon -) 80 mg PO Q4H PRN PRN Reason: GAS - Objective Vital Signs: Vital Signs Temperature 97.8 F 12/09/18 10:00 Pulse Rate 72 03/12/18 10:00 Respiratory Rate 20 03/12/18 10:00 Blood Pressure 104/58 L 03/12/18 10:00 O2 Sat by Pulse Oximetry (%) 97 03/12/18 09:00 Constitutional: Yes: No Distress, Calm Neck: Yes: Supple Cardiovascular: Yes: Regular Rate and Rhythm Respiratory: Yes: Regular Gastrointestinal: Yes: Normal Bowel Sounds, Soft, Other (wound vac) Wound/Incision: Yes: Dressing Dry and Intact, Other (drain with serosanguinous fluid) Labs: CBC, BMP 03/12/18 05:30 03/12/18 05:30 INR, PTT INR 1.33 (0.83-1.09) H 02/21/18 20:30 Problem List - Problems (1) Afib Code(s): I48.91 - UNSPECIFIED ATRIAL FIBRILLATION (2) Hypothyroid Code(s): E03.9 - HYPOTHYROIDISM, UNSPECIFIED (3) Sigmoid thickening Code(s): K63.9 - DISEASE OF INTESTINE, UNSPECIFIED Assessment/Plan Colon ca s/p resection/Hartmans Sepsis Uroma s/p Urostomy Abdominal abscess perforated diverticulum- s/p Hartmans LLE DVT r/o PE -- completed course of antibiotics -- currently stable -- wound care -- cont. monitor
[2018-03-12] MEDS: LACTATED RINGERS SOLUTION 1,000 ML/1,000 ML INFUS.BAG IV SCH ×2 (15:38→18:41)
--- NOTE | 2018-03-12 15:42 | PN ---
Progress Note, Physician Chief Complaint: abdominal pain and colon mass History of Present Illness: 57 yo male presenting to [facility] ER via private auto complaining of occasional lower left abdominal discomfort. stable post operatively after second laparotomy. Gas and air in the colostomy this morning, We were called to the bedside when the patinet was reporting more abdominal pain. he has been temporized with drainage catheters and rephrostomy but has a left ureteral injury that will require reconstruction. - Current Medication List Current Medications: Active Medications Acetaminophen (Tylenol -) 650 mg PO Q4H PRN PRN Reason: FEVER Last Admin: 03/10/18 22:17 Dose: 650 mg Amino Acids (Prosource No Carb Liquid Pkt) 30 ml PO BID@0800,1730 [facility] Last Admin: 03/12/18 09:27 Dose: 30 ml Benzocaine/Menthol (Cepacol Lozenge -) 1 each MM DAILY PRN PRN Reason: SORE THROAT Diphenhydramine HCl (Benadryl Injection -) 12.5 mg IVPUSH ONCE PRN PRN Reason: FOR ITCHING Stop: 03/14/18 16:02 Heparin Sodium (Porcine) (Heparin -) 1,000 unit IVPUSH PRN PRN PRN Reason: Heparin Heparin Sodium (Porcine) (Heparin -) 5,000 unit IVPUSH PRN PRN PRN Reason: Heparin Fluconazole (Diflucan 200 Mg/Ns Premixed Ivpb -) 100 mls @ 100 mls/hr IVPB DAILY [facility] Last Admin: 03/12/18 09:27 Dose: 100 mls/hr HEPARIN SOD,PORK IN 0.45% NACL (Heparin-1/2ns 25,000 Units/500) 25,000 units in 500 mls @ 20 mls/hr IVPB TITR [facility]; Protocol Last Admin: 03/12/18 06:49 Dose: 1,000 units/hr, 20 mls/hr Lactated Ringer's (Lactated Ringers Solution) 1,000 ml in 1,000 mls @ 75 mls/ hr IV ASDIR [facility] Last Admin: 03/11/18 16:57 Dose: 75 mls/hr Levothyroxine Sodium (Synthroid -) 112 mcg PO DAILY@0700 [facility] Last Admin: 03/12/18 06:47 Dose: 112 mcg Ondansetron HCl (Zofran Injection) 8 mg IVPB Q8H PRN PRN Reason: NAUSEA Pantoprazole Sodium (Protonix -) 40 mg PO DAILY [facility] Last Admin: 03/12/18 09:26 Dose: 40 mg Simethicone (Mylicon -) 80 mg PO Q4H PRN PRN Reason: GAS - Objective Vital Signs: Vital Signs Temperature 98 F 03/12/18 14:15 Pulse Rate 69 03/12/18 14:15 Respiratory Rate 20 03/12/18 14:15 Blood Pressure 102/63 03/12/18 14:15 O2 Sat by Pulse Oximetry (%) 97 03/12/18 09:00 Vital Signs Period Temp Pulse Resp BP Sys/Cavanaugh Pulse Ox Last 24 Hr 97.8 F-99.2 F 56-76 18-20 102-112/58-67 95-97 Constitutional: Yes: Well Nourished, No Distress, Calm Eyes: Yes: Conjunctiva Clear, EOM Intact HENT: Yes: Atraumatic, Normocephalic Neck: Yes: Supple, Trachea Midline Cardiovascular: Yes: Regular Rate and Rhythm, S1, S2 Respiratory: Yes: Regular, CTA Bilaterally Gastrointestinal: Yes: Normal Bowel Sounds, Soft. No: Tenderness Genitourinary: No: CVA Tenderness - Left, CVA Tenderness - Right Edema: No Peripheral Pulses WNL: Yes Peripheral Pulses: Left Radial: 2+, Right Radial: 2+, Left Doralis Pedis: 2+, Right Dorsalis Pedis: 2+, Left Femoral: 2+, Right Femoral: 2+ Integumentary: No: Jaundice, Rash, Onychomycosis Wound/Incision: Yes: Clean/Dry, Dressing Dry and Intact, Draining, Unapproximated Neurological: Yes: Alert, Oriented Psychiatric: Yes: Alert, Oriented Labs: CBC, BMP 03/12/18 05:30 03/12/18 05:30 INR, PTT INR 1.33 (0.83-1.09) H 02/21/18 20:30 Problem List - Problems (1) Neoplasm of sigmoid colon Assessment/Plan: POD#26 s/p sigmoid colectomy and primary anastomosis (due to sigmoid colon cancer) POD#19 s/p completion left colectomy and amado's (due to perforated diverticulum distal to anatomosis) POD#4 s/p cystoscopy by urology showed likely left ureteral transection. He will require follow up at [facility] ( tertiary care) Dr. Cristian Kennedy MD, urologic oncology and Gerry Meeks MD, colorectal surgery for reimplantation or uretal reconstruction over stent and colostomy reversal. I had family discussion with daughter and all parties are in agreement with the plan. During his 2 month wait until revision surgery he will follow up weekly at [facility] in wound care center for wound vac management. Advance diet as tolerated supplemental protein IVF hydration order VAC freedom, VAC change due 03/14 OOB and ambulate encourage IS will follow Discharge with abdominal drain, neprostomy, colostomy, and VAC with a plan to reconstruct in [address] [facility] Code(s): D49.0 - NEOPLASM OF UNSPECIFIED BEHAVIOR OF DIGESTIVE SYSTEM (2) Sigmoid thickening Code(s): K63.9 - DISEASE OF INTESTINE, UNSPECIFIED (3) Abdominal pain Code(s): R10.9 - UNSPECIFIED ABDOMINAL PAIN Qualifiers: Abdominal location: left lower quadrant Qualified Code(s): R10.32 - Left lower quadrant pain (4) Abnormal colonoscopy Code(s): R93.3 - ABNORMAL FINDINGS ON DX IMAGING OF PRT DIGESTIVE TRACT
[2018-03-12] MEDS: ACETAMINOPHEN 325 MG TABLET (FP) PO PRN (18:47)
[2018-03-13] MEDS: LEVOTHYROXINE NA 112 MCG TABLET (FP) PO SCH (06:47)
[2018-03-13 07:00] LABS: BASO % 0.5 % (0-2.0); EOS % 2.4 % (0-4.5); HEMATOCRIT 29.2 % (35.4-49); HEMOGLOBIN 9.2 GM/dL (11.7-16.9); LYMPH % 22.6 % (8-40); MCH 26.5 pg (25.7-33.7); MCHC 31.5 g/dl (32.0-35.9); MEAN CELL VOLUME 84.1 fl (80-96); MEAN PLT VOLUME 6.9 fl (7.5-11.1); MONO % 9.5 % (3.8-10.2); PLATELET COUNT 265 K/MM3 (134-434); RBC 3.48 M/mm3 (4.00-5.60); RDW 20.9 % (11.9-15.9)
[2018-03-13] MEDS ORDERED: PT OWN MED DRAWER 7, Y5N ONE ×2 (08:18→09:48)
[2018-03-13 08:19] LABS: ALK PHOS 141 U/L (45-117); ANION GAP 8 MMOL/L (8-16); BILIRUBIN,TOTAL 0.3 mg/dL (0.2-1); BLOOD UREA NITROGEN 7 mg/dL (7-18); CHLORIDE 105 mmol/L (98-107); CO2 26 mmol/L (21-32); CREATININE 0.5 mg/dL (0.55-1.3); GLUCOSE,RANDOM 90 mg/dL (74-106); MAGNESIUM 2.1 mg/dL (1.8-2.4); POTASSIUM 3.9 mmol/L (3.5-5.1); SGOT/AST 26 U/L (15-37); SGPT/ALT 38 U/L (13-61); SODIUM 140 mmol/L (136-145); TOT PROT 6.4 g/dl (6.4-8.2)
--- NOTE | 2018-03-13 08:19 | PN ---
Teaching Attending Note Name of Resident: Betty Cardoza ATTENDING PHYSICIAN STATEMENT I saw and evaluated the patient. I reviewed the resident's note and discussed the case with the resident. I agree with the resident's findings and plan as documented with exceptions below. SUBJECTIVE: Patient seen and examined. Overall feels well, tolerating diet. No new complaints. OBJECTIVE: Vital Signs Period Temp Pulse Resp BP Sys/Cavanaugh Pulse Ox Last 24 Hr 97.8 F-98.7 F 59-72 18-20 102-113/58-70 96-97 Intake & Output 03/10/18 03/11/18 03/12/18 03/13/18 23:59 23:59 23:59 23:59 Intake Total 2490 1160 2760 1140 Output Total 2450 5680 2940 570 Balance 40 -4520 -180 570 Weight 160 lb General: sitting chair in no acute distress Abdomen:soft, wound vac in midline surgical incision, left colostomy, left nephrostomy bag with clear urine, LLQ pigtail in place, minimal tenderness around wound vac site, no voluntary or involuntary guarding or rigidity, positive bowel sounds Extremities: no edema Active Medications Acetaminophen (Tylenol -) 650 mg PO Q4H PRN PRN Reason: FEVER Last Admin: 03/12/18 18:47 Dose: 650 mg Amino Acids (Prosource No Carb Liquid Pkt) 30 ml PO BID@0800,1730 [facility] Last Admin: 03/12/18 17:13 Dose: 30 ml Benzocaine/Menthol (Cepacol Lozenge -) 1 each MM DAILY PRN PRN Reason: SORE THROAT Diphenhydramine HCl (Benadryl Injection -) 12.5 mg IVPUSH ONCE PRN PRN Reason: FOR ITCHING Stop: 03/14/18 16:02 Heparin Sodium (Porcine) (Heparin -) 1,000 unit IVPUSH PRN PRN PRN Reason: Heparin Heparin Sodium (Porcine) (Heparin -) 5,000 unit IVPUSH PRN PRN PRN Reason: Heparin Fluconazole (Diflucan 200 Mg/Ns Premixed Ivpb -) 100 mls @ 100 mls/hr IVPB DAILY [facility] Last Admin: 03/12/18 09:27 Dose: 100 mls/hr HEPARIN SOD,PORK IN 0.45% NACL (Heparin-1/2ns 25,000 Units/500) 25,000 units in 500 mls @ 20 mls/hr IVPB TITR JERED; Protocol Last Admin: 03/12/18 15:35 Dose: 1,000 units/hr, 20 mls/hr Lactated Ringer's (Lactated Ringers Solution) 1,000 ml in 1,000 mls @ 75 mls/ hr IV ASDIR JERED Last Admin: 03/12/18 18:41 Dose: 75 mls/hr Levothyroxine Sodium (Synthroid -) 112 mcg PO DAILY@0700 [facility] Last Admin: 03/13/18 06:47 Dose: 112 mcg Ondansetron HCl (Zofran Injection) 8 mg IVPB Q8H PRN PRN Reason: NAUSEA Pantoprazole Sodium (Protonix -) 40 mg PO DAILY [facility] Last Admin: 03/12/18 09:26 Dose: 40 mg Simethicone (Mylicon -) 80 mg PO Q4H PRN PRN Reason: GAS Laboratory Results - last 24 hr 03/12/18 03/12/18 03/13/18 05:30 05:30 05:30 WBC RBC Hgb Hct MCV MCH MCHC RDW Plt Count MPV Absolute Neuts (auto) Neutrophils % Lymphocytes % Monocytes % Eosinophils % Basophils % Nucleated RBC % PTT (Actin FS) 55.9 H 75.9 H Sodium 140 Potassium 3.8 Chloride 105 Carbon Dioxide 25 Anion Gap 10 BUN 7 Creatinine 0.4 L Creat Clearance w eGFR > 60 Random Glucose 83 Calcium 8.1 L Phosphorus 4.0 Magnesium 2.1 Total Bilirubin 0.4 AST 19 ALT 32 Alkaline Phosphatase 138 H Total Protein 6.3 L Albumin 2.1 L 03/13/18 05:30 WBC 5.0 RBC 3.48 L Hgb 9.2 L Hct 29.2 L MCV 84.1 MCH 26.5 MCHC 31.5 L RDW 20.9 H Plt Count 265 MPV 6.9 L Absolute Neuts (auto) 3.3 Neutrophils % 65.0 Lymphocytes % 22.6 Monocytes % 9.5 Eosinophils % 2.4 Basophils % 0.5 Nucleated RBC % 0 PTT (Actin FS) Sodium Potassium Chloride Carbon Dioxide Anion Gap BUN Creatinine Creat Clearance w eGFR Random Glucose Calcium Phosphorus Magnesium Total Bilirubin AST ALT Alkaline Phosphatase Total Protein Albumin Microbiology 03/09/18 07:40 Urine - Urine Nephrostomy Tube Left Urine Culture - Final NO GROWTH OBTAINED 03/02/18 08:40 Blood - Peripheral Venous Blood Culture - Final NO GROWTH AFTER 5 DAYS INCUBATION 03/02/18 08:35 Blood - Peripheral Venous Blood Culture - Final NO GROWTH AFTER 5 DAYS INCUBATION 03/01/18 17:00 Ascites Gram Stain - Final 03/01/18 17:00 Ascites Body Fluid Culture - Final Yeast Like Organism 03/01/18 17:00 Ascites Anaerobic Culture - Final NO ANAEROBES WERE ISOLATED 03/01/18 17:00 Ascites AFB Smear Concentration - Final 03/01/18 17:00 Ascites Mycobacterial Culture - Preliminary 03/02/18 10:00 Urine - Urine Lentz Urine Culture - Final NO GROWTH OBTAINED 03/01/18 17:00 Ascites RADHA Preparation - Preliminary 03/01/18 17:00 Ascites Fungal Culture - Preliminary 02/24/18 14:50 Blood - Peripheral Venous Blood Culture - Final NO GROWTH AFTER 5 DAYS INCUBATION 02/24/18 14:30 Blood - Peripheral Venous Blood Culture - Final NO GROWTH AFTER 5 DAYS INCUBATION 02/22/18 21:40 Blood - Peripheral Venous Blood Culture - Final NO GROWTH AFTER 5 DAYS INCUBATION 02/22/18 20:15 Blood - Peripheral Venous Blood Culture - Final NO GROWTH AFTER 5 DAYS INCUBATION 02/20/18 14:30 Abscess Gram Stain - Final 02/20/18 14:30 Abscess Body Fluid Culture - Final Escherichia Coli Staphylococcus Aureus Yeast Like Organism 02/20/18 14:30 Abscess Anaerobic Culture - Final Bacteroides Fragilis 02/22/18 23:24 Urine - Urine Lentz Urine Culture - Final NO GROWTH OBTAINED 02/17/18 20:00 Blood - Peripheral Venous Blood Culture - Final NO GROWTH AFTER 5 DAYS INCUBATION 02/17/18 17:00 Blood - Peripheral Venous Blood Culture - Final NO GROWTH AFTER 5 DAYS INCUBATION 02/17/18 16:40 Urine - Urine Clean Catch Urine Culture - Final NO GROWTH OBTAINED CTA chest results reviewed ASSESSMENT AND PLAN: 57yo M with PMH hypothyroid presenetd to the ER with intermittent LLQ pain with recent colonoscopy with finding suspicious for malignancy. Pt underwent sigmoid colectomy on 02/14 which patient developed pneumoperitoneum and abdominal abscess and underwent ex-lap with abdominal washout and complete L hemicolectomy with Hartmans due to perforated diverticulum on 02/21. Pt went into AFib with RVR during the procedure which he self converted. Course complicated by L uretral injury with Ureteral extravsation seen with PCN tube was placed. DIRECTOR PUBLIC called on 03/01 where pt was found to have a uroma where bedside pigtail placed and patient was transferred to ICU. patient care was transferred to [facility] at request of patient and family - Stage 1 colon ca s/p resection and Hartmans- s/p surgeries as stated above with wound vac and colostomy in place. Further wound care and wound vac management per surgical team. tolerating solid food. pain control - Sepsis due to Urine leak-s/p pigtail placement bedside by IR draining clear urine. Urology unable to place stent, procedure abandoned. Discussed with Dr. Grubbs, Dr. Foster (Uro oncologist) from [facility] to see patient. Pigtail drainage cr 30 and ongoing drainage. discussed with Dr. Ventura, case was discussed by him with Dr. Foster, suggests 1 step procedure for ureter/colostomy once active inflammation subsides in 2 months. Per his discussion with Dr. Hussein, pigtail sutured and secured, ok to dc with current pigtail. Dr. Ventura arranging for outpatient wound care /colorectal surgery and urology follow up. Will follow up on his recs. - Abdominal abscess due to perforated diverticulum- s/p Hartmans 02/21. + polymicrobial (E.Coli, B.Fragilis, Yeast) on zosyn and fluconazole. leukocytosis resolved. repeat Cx neg, ID input noted, monitor off abx. - Hypotension - resolved. suspect from significant output and poor oral intake. PO intake improved, BP stable, d/c IVF. Monitor for recurrent sepsis. - Acute Pulmonary embolism/LLE DVT with right heart strain-heparin drip, hematology consult appreciated. start eliquis. Discuss with social work for insurance coverage/financial assistance with NOACs. atleast 6 months of AC. - Troponemia- demand due to sepsis and hypoxia. Trop peaked at 0.86 and trended down. no indication for further monitoring of troponins. echo noted. - PAF- no repeat episodes of afib noted. no further workup at this time - pseudohypocalcemia- Montior ca levels. Plan discussed with patient, RN, all questions answered. Care co-ordinated with Dr. Ventura, hematology and nursing. Encourage OOB, PT eval.
[2018-03-13] MEDS: HEPARIN SOD,PORK IN 0.45% NACL 25,000 UNITS/500 ML INFUS.BAG IVPB SCH ×2 (08:44→09:30)
[2018-03-13] MEDS: LACTATED RINGERS SOLUTION 1,000 ML/1,000 ML INFUS.BAG IV SCH ×2 (08:46→11:08)
[2018-03-13] MEDS: AMINO ACIDS/PROTEIN HYDROLYS 30 ML LIQUID.PKT PO SCH ×2 (09:50→17:24)
[2018-03-13] MEDS: FLUCONAZOLE 200 MG/NS 100 ML IVPB SCH (09:50)
[2018-03-13] MEDS: PANTOPRAZOLE 40 MG TABLET (FP) PO SCH (09:50)
[2018-03-13 11:07] LABS: ANISOCYTOSIS 1+; MACROCYTOSIS 1+; OVALOCYTE 1+; PLATELET ESTIMATE NORMAL
--- NOTE | 2018-03-13 14:57 | PN ---
Progress Note, Physician History of Present Illness: stable no issues doing well nephrostomy and urostomy draining well - Current Medication List Current Medications: Active Medications Acetaminophen (Tylenol -) 650 mg PO Q4H PRN PRN Reason: FEVER Last Admin: 03/12/18 18:47 Dose: 650 mg Amino Acids (Prosource No Carb Liquid Pkt) 30 ml PO BID@0800,1730 [facility] Last Admin: 03/13/18 09:50 Dose: 30 ml Benzocaine/Menthol (Cepacol Lozenge -) 1 each MM DAILY PRN PRN Reason: SORE THROAT Diphenhydramine HCl (Benadryl Injection -) 12.5 mg IVPUSH ONCE PRN PRN Reason: FOR ITCHING Stop: 03/14/18 16:02 Heparin Sodium (Porcine) (Heparin -) 1,000 unit IVPUSH PRN PRN PRN Reason: Heparin Heparin Sodium (Porcine) (Heparin -) 5,000 unit IVPUSH PRN PRN PRN Reason: Heparin HEPARIN SOD,PORK IN 0.45% NACL (Heparin-1/2ns 25,000 Units/500) 25,000 units in 500 mls @ 20 mls/hr IVPB TITR [facility]; Protocol Last Admin: 03/13/18 08:44 Dose: 1,000 units/hr, 20 mls/hr Lactated Ringer's (Lactated Ringers Solution) 1,000 ml in 1,000 mls @ 75 mls/ hr IV ASDIR [facility] Last Admin: 03/13/18 11:08 Dose: Not Given Levothyroxine Sodium (Synthroid -) 112 mcg PO DAILY@0700 [facility] Last Admin: 03/13/18 06:47 Dose: 112 mcg Ondansetron HCl (Zofran Injection) 8 mg IVPB Q8H PRN PRN Reason: NAUSEA Pantoprazole Sodium (Protonix -) 40 mg PO DAILY [facility] Last Admin: 03/13/18 09:50 Dose: 40 mg Simethicone (Mylicon -) 80 mg PO Q4H PRN PRN Reason: GAS - Objective Vital Signs: Vital Signs Temperature 98.5 F 03/13/18 08:48 Pulse Rate 72 03/13/18 08:48 Respiratory Rate 20 03/13/18 08:48 Blood Pressure 112/66 03/13/18 08:48 O2 Sat by Pulse Oximetry (%) 95 03/13/18 09:00 Constitutional: Yes: No Distress, Calm Cardiovascular: Yes: Regular Rate and Rhythm Respiratory: Yes: Regular, CTA Bilaterally Gastrointestinal: Yes: Normal Bowel Sounds, Soft Genitourinary: Yes: Other (nephrostomy tube in place urostomy in place) Musculoskeletal: Yes: WNL Extremities: Yes: WNL Neurological: Yes: Alert, Oriented Psychiatric: Yes: Alert, Oriented Labs: CBC, BMP 03/13/18 05:30 03/13/18 05:30 INR, PTT INR 1.33 (0.83-1.09) H 02/21/18 20:30 Assessment/Plan Problem List - Problems (1) Neoplasm of sigmoid colon Code(s): D49.0 - NEOPLASM OF UNSPECIFIED BEHAVIOR OF DIGESTIVE SYSTEM (2) Sigmoid thickening Code(s): K63.9 - DISEASE OF INTESTINE, UNSPECIFIED (3) Abdominal pain Code(s): R10.9 - UNSPECIFIED ABDOMINAL PAIN Qualifiers: Abdominal location: left lower quadrant Qualified Code(s): R10.32 - Left lower quadrant pain (4) Abnormal colonoscopy Code(s): R93.3 - ABNORMAL FINDINGS ON DX IMAGING OF PRT DIGESTIVE TRACT fever abd distension DVT ? pe ureteral tear left s/p ext nephrostomy in view of patients hypotension,close watch on the the patient ,as patient might have infection plan stable off of abx continue to monitor rest as per the team patient improving
[2018-03-13] MEDS: ACETAMINOPHEN 325 MG TABLET (FP) PO PRN (15:30)
--- NOTE | 2018-03-13 15:31 | PN ---
Physical Exam: SUBJECTIVE: Patient seen and examined at bedside- no acute events overnight; patient states that he is feeling well and is in minimal pain; he is frustrated about having to wait here with uncelar answers however he denies any CP/SOB/N/V fevers or chills and is tolerating his diet- he ambulated with PT this AM. OBJECTIVE: Vital Signs Period Temp Pulse Resp BP Sys/Cavanaugh Pulse Ox Last 24 Hr 98.1 F-98.7 F 59-72 18-20 103-113/63-70 95-96 GENERAL: The patient is awake, alert, and fully oriented, in no acute distress. EYES: no scleral icterus. . NECK: no JVD, no lymphadenopathy. LUNGS: CTA B/L; no rales, rhonchi or wheezing. HEART: Regular rate and rhythm, S1, S2 without murmur, rub or gallop. ABDOMEN: Soft, nontender, nondistended, normoactive bowel sounds, wound vac in place; L nephsrosotmy tube and L pigtail cather in place EXTREMITIES: 2+ pulses, warm, well-perfused, no edema. . PSYCH: Normal mood, normal affect. SKIN: Warm, dry, normal turgor, no rashes or lesions noted Laboratory Results - last 24 hr 03/13/18 03/13/18 03/13/18 05:30 05:30 05:30 WBC 5.0 RBC 3.48 L Hgb 9.2 L Hct 29.2 L MCV 84.1 MCH 26.5 MCHC 31.5 L RDW 20.9 H Plt Count 265 MPV 6.9 L Absolute Neuts (auto) 3.3 Neutrophils % 65.0 Lymphocytes % 22.6 Monocytes % 9.5 Eosinophils % 2.4 Basophils % 0.5 Nucleated RBC % 0 Hypochromia 0 Platelet Estimate Normal Polychromasia 1+ Poikilocytosis 0 Anisocytosis 1+ Microcytosis 0 Macrocytosis 1+ Spherocytes 1+ Ovalocytes 1+ PTT (Actin FS) 75.9 H Sodium 140 Potassium 3.9 Chloride 105 Carbon Dioxide 26 Anion Gap 8 BUN 7 Creatinine 0.5 L Creat Clearance w eGFR > 60 Random Glucose 90 Calcium 8.0 L Phosphorus 4.0 Magnesium 2.1 Total Bilirubin 0.3 AST 26 ALT 38 Alkaline Phosphatase 141 H Total Protein 6.4 Albumin 2.0 L Active Medications Generic Name Dose Route Start Last Admin Trade Name Freq PRN Reason Stop Dose Admin Acetaminophen 650 mg 03/09/18 16:03 03/12/18 18:47 Tylenol - PO 650 mg Q4H PRN Administration FEVER Amino Acids 30 ml 03/09/18 17:30 03/13/18 09:50 Prosource No Carb Liquid Pkt PO 30 ml BID@0800,1730 JERED Administration Benzocaine/Menthol 1 each 03/09/18 16:03 Cepacol Lozenge - MM DAILY PRN SORE THROAT Diphenhydramine HCl 12.5 mg 03/09/18 16:03 Benadryl Injection - IVPUSH 03/14/18 16:02 ONCE PRN FOR ITCHING Heparin Sodium (Porcine) 1,000 unit 03/09/18 16:03 Heparin - IVPUSH PRN PRN Heparin Heparin Sodium (Porcine) 5,000 unit 03/09/18 16:03 Heparin - IVPUSH PRN PRN Heparin HEPARIN SOD,PORK IN 0.45% NACL 25,000 units in 500 mls @ 20 mls/hr 03/09/18 16 :03 03/13/18 08:44 Heparin-1/2ns 25,000 Units/500 IVPB 1,000 units/hr TITR JERED 20 mls/hr Administration Protocol 1,000 UNITS/HR Lactated Ringer's 1,000 ml in 1,000 mls @ 75 mls/hr 03/11/18 10:17 03/13/18 11:08 Lactated Ringers Solution IV Not Given ASDIR JERED Levothyroxine Sodium 112 mcg 03/10/18 07:00 03/13/18 06:47 Synthroid - PO 112 mcg DAILY@0700 JERED Administration Ondansetron HCl 8 mg 03/09/18 16:03 Zofran Injection IVPB Q8H PRN NAUSEA Pantoprazole Sodium 40 mg 03/10/18 10:00 03/13/18 09:50 Protonix - PO 40 mg DAILY JERED Administration Simethicone 80 mg 03/09/18 16:03 Mylicon - PO Q4H PRN GAS ASSESSMENT/PLAN: 57 year old man with history of hypothyroidism, Afib w/ RVR stage 1 colon cancer with Sue procedure performed 02/22 (Dr. Ventura). Patient with urine leak from abdominal site (02/26) found to have L sided ureteral extravasation with L nephrostomy tube placement (02/28). PLAN #Septic Shock possibly 2/2 urine leak -patient is now normotensive -CX negative -no longer on abx as per ID -monitor hemodynamics #GI Abcess with urine leak and leukocytosis - Blood cultures (02/17) - without growth - Abscess culture (02/20) - lactose fermenting gram neg bacilli, coag pos staph , yeast - no longer on abx as per ID - Tylenol PRN for fever #Ureteral Extravasation with nephrostomy tube placementt. - L nephrostomy tube placed 02/28 - Lentz - monitor urine output from nephrostomy tube -Cr from nephrosotmy tube came back at 30 -pateint was unable to have stent placed; Dr Persaud from [facility] will be seeing patient as he will be likely transferred there for procedure as per Dr. Espinosa #PE evidence of right heart strain on ECHo -CTA done showing posssible PE in right upper lobe and right middle lobe of lung -currently on heparin drip; will be transitioning to eliBranch Metricsis tonight #Colon Ca s/p Harrtmanns procedure -patient now has wound vac in place -f/u oncology recs #Hypothyroidism -TSH within normal limits c/w home dose of levothyroxine F/E/N -LR @100mls/hr -monitor electrolytes - soft diet GI ppx - Protonix 40mg daily DVT ppx - heparin drip Problem List - Problems (1) Abdominal pain Code(s): R10.9 - UNSPECIFIED ABDOMINAL PAIN Qualifiers: Abdominal location: left lower quadrant Qualified Code(s): R10.32 - Left lower quadrant pain (2) Abnormal colonoscopy Code(s): R93.3 - ABNORMAL FINDINGS ON DX IMAGING OF PRT DIGESTIVE TRACT (3) Afib Code(s): I48.91 - UNSPECIFIED ATRIAL FIBRILLATION (4) Left ureteral injury Code(s): S37.10XA - UNSPECIFIED INJURY OF URETER, INITIAL ENCOUNTER
--- NOTE | 2018-03-13 16:52 | PN ---
Progress Note (short form) - Note Progress Note: PROGRESS NOTE FOR HEMATOLOGY/ONCOLOGY Patient seen and examined by me at bedside. Patient found to have PE and currently on Heparin drip Offers no complaints. Denies any nausea, vomiting, shortness of breath, chest pain, palpitations, dizziness Vital Signs Temperature 98.2 F 03/13/18 16:02 Pulse Rate 71 03/13/18 16:02 Respiratory Rate 20 03/13/18 16:02 Blood Pressure 113/67 03/13/18 16:02 O2 Sat by Pulse Oximetry (%) 95 03/13/18 09:00 PHYSICAL EXAMINATION GENERAL: Awake, Alert, oriented x3. No cute distress EYES: PERRL. Sclera anicteric, conjunctiva clear MOUTH: Moist mucous membranes. No oral thrush HEART: RRR, Normal S1 an S2. No m/r/g LUNGS: CTA bilaterally ABDOMEN: Nontender, nondistended .Colostomy bag in place. Left nephrostomy tube placed. Wound vac in place; L pigtail cather in place EXTREMITIES: No peripheral edema Laboratory Tests 03/13/18 05:30 03/13/18 05:30 ASSESSMENT AND PLAN: Patient is a 57 year old make who presented with abdominal pain and colonoscopy revealed sigmoid mass and is now s/p sigmoidectomy (02/15/18). Problem List: Sigmoid Mass S/P sigmoidectomy/ Sue's procedure Post op Fecal Peritonitis/Perforated Diverticulum Atiral fibrillation Hypothyrodism Ureteral Extravasation s/p left nephrostomy tube placement Pulmonary Embolism PLAN: -Patient found to have Pulmonary Embolism and CTA. Currently on Heparin drip and may be switched to a NOAC such as Eliquis if insurance covers.
--- NOTE | 2018-03-13 18:16 | PN ---
Teaching Attending Note Name of Resident: Alessia Wan ATTENDING PHYSICIAN STATEMENT I saw and evaluated the patient. I reviewed the resident's note and discussed the case with the resident. I agree with the resident's findings and plan as documented. ASSESSMENT AND PLAN: 57 y/o patient with stage IT2, N0 . adenoca, Grade2, negative margins, 0/15 nodes positive, NO LVI stage I colon cancer also with recent b/l Lobar PE Nl baseline coags. Cr and liver function On heparin consider transitioning to NOAC if ok with surgical team
[2018-03-13] MEDS ORDERED: APIXABAN 5 MG TABLET PO SCH (22:00)
[2018-03-14 06:21] LABS: HEMATOCRIT 30.7 % (35.4-49); HEMOGLOBIN 9.8 GM/dL (11.7-16.9); MCH 26.7 pg (25.7-33.7); MEAN CELL VOLUME 83.6 fl (80-96); MEAN PLT VOLUME 6.8 fl (7.5-11.1); PLATELET COUNT 282 K/MM3 (134-434); RBC 3.68 M/mm3 (4.00-5.60); RDW 20.5 % (11.9-15.9); WHITE BLOOD COUNT 5.3 K/mm3 (4.0-10.0)
[2018-03-14] MEDS: LEVOTHYROXINE NA 112 MCG TABLET (FP) PO SCH (06:25)
[2018-03-14 06:49] LABS: ANION GAP 8 MMOL/L (8-16); BLOOD UREA NITROGEN 8 mg/dL (7-18); CHLORIDE 105 mmol/L (98-107); CO2 27 mmol/L (21-32); CREATININE 0.5 mg/dL (0.55-1.3); GLUCOSE,RANDOM 83 mg/dL (74-106); PHOSPHOROUS 4.2 mg/dL (2.5-4.9); POTASSIUM 3.9 mmol/L (3.5-5.1); SODIUM 139 mmol/L (136-145)
[2018-03-14] MEDS: HEPARIN NA (PORCINE) 5,000 UNITS/ML 1ML VIAL IVPUSH PRN ×2 (06:54→10:19)
--- NOTE | 2018-03-14 07:22 | PN ---
Physical Exam: SUBJECTIVE: Patient seen and examined at bedside; no acute events overnight; patient is feeling well; denies any CP/SOB/N/V fevers or chills- is frustrated and wants to leave the hospital but has no complaints OBJECTIVE: Vital Signs Period Temp Pulse Resp BP Sys/Cavanaugh Pulse Ox Last 24 Hr 98.2 F-98.5 F 66-72 20-20 108-113/62-67 95-95 GENERAL: The patient is awake, alert, and fully oriented, in no acute distress. EYES:no scleral icterus NECK: no JVD, no lymphadenopathy LUNGS:CTA B/L; no rales, rhonchi or wheezing. HEART: Regular rate and rhythm, S1, S2 without murmur, rub or gallop. ABDOMEN: Soft, nontender, nondistended, normoactive bowel sounds, no guarding, no rebound, no hepatosplenomegaly, no masses, nephrostomy tube in place; midline wound vac in place no erythema surrounding; colostomy tube in place EXTREMITIES: 2+ pulses, warm, well-perfused, no edema. PSYCH: Normal mood, normal affect. SKIN: Warm, dry, normal turgor, no rashes or lesions noted Laboratory Results - last 24 hr 03/13/18 03/13/18 03/13/18 05:30 05:30 05:30 WBC 5.0 RBC 3.48 L Hgb 9.2 L Hct 29.2 L MCV 84.1 MCH 26.5 MCHC 31.5 L RDW 20.9 H Plt Count 265 MPV 6.9 L Absolute Neuts (auto) 3.3 Neutrophils % 65.0 Lymphocytes % 22.6 Monocytes % 9.5 Eosinophils % 2.4 Basophils % 0.5 Nucleated RBC % 0 Hypochromia 0 Platelet Estimate Normal Polychromasia 1+ Poikilocytosis 0 Anisocytosis 1+ Microcytosis 0 Macrocytosis 1+ Spherocytes 1+ Ovalocytes 1+ PTT (Actin FS) 75.9 H Sodium 140 Potassium 3.9 Chloride 105 Carbon Dioxide 26 Anion Gap 8 BUN 7 Creatinine 0.5 L Creat Clearance w eGFR > 60 Random Glucose 90 Calcium 8.0 L Phosphorus 4.0 Magnesium 2.1 Total Bilirubin 0.3 AST 26 ALT 38 Alkaline Phosphatase 141 H Total Protein 6.4 Albumin 2.0 L 03/14/18 03/14/18 05:30 05:30 WBC RBC Hgb Hct MCV MCH MCHC RDW Plt Count MPV Absolute Neuts (auto) Neutrophils % Lymphocytes % Monocytes % Eosinophils % Basophils % Nucleated RBC % Hypochromia Platelet Estimate Polychromasia Poikilocytosis Anisocytosis Microcytosis Macrocytosis Spherocytes Ovalocytes PTT (Actin FS) 48.1 H Sodium 139 Potassium 3.9 Chloride 105 Carbon Dioxide 27 Anion Gap 8 BUN 8 Creatinine 0.5 L Creat Clearance w eGFR > 60 Random Glucose 83 Calcium 8.0 L Phosphorus 4.2 Magnesium 2.0 Total Bilirubin AST ALT Alkaline Phosphatase Total Protein Albumin Active Medications Generic Name Dose Route Start Last Admin Trade Name Freq PRN Reason Stop Dose Admin Acetaminophen 650 mg 03/09/18 16:03 03/13/18 15:30 Tylenol - PO 650 mg Q4H PRN Administration FEVER Amino Acids 30 ml 03/09/18 17:30 03/13/18 17:24 Prosource No Carb Liquid Pkt PO 30 ml BID@0800,1730 JERED Administration Benzocaine/Menthol 1 each 03/09/18 16:03 Cepacol Lozenge - MM DAILY PRN SORE THROAT Diphenhydramine HCl 12.5 mg 03/09/18 16:03 Benadryl Injection - IVPUSH 03/14/18 16:02 ONCE PRN FOR ITCHING Heparin Sodium (Porcine) 1,000 unit 03/09/18 16:03 03/14/18 06:54 Heparin - IVPUSH 1,000 unit PRN PRN Administration Heparin Heparin Sodium (Porcine) 5,000 unit 03/09/18 16:03 Heparin - IVPUSH PRN PRN Heparin HEPARIN SOD,PORK IN 0.45% NACL 25,000 units in 500 mls @ 20 mls/hr 03/09/18 16 :03 03/14/18 06:54 Heparin-1/2ns 25,000 Units/500 IVPB 1,050 units/hr TITR JERED 21 mls/hr Titration Protocol 1,000 UNITS/HR Levothyroxine Sodium 112 mcg 03/10/18 07:00 03/14/18 06:25 Synthroid - PO 112 mcg DAILY@0700 JERED Administration Ondansetron HCl 8 mg 03/09/18 16:03 Zofran Injection IVPB Q8H PRN NAUSEA Pantoprazole Sodium 40 mg 03/10/18 10:00 03/13/18 09:50 Protonix - PO 40 mg DAILY JERED Administration Simethicone 80 mg 03/09/18 16:03 Mylicon - PO Q4H PRN GAS ASSESSMENT/PLAN: 57 year old man with history of hypothyroidism, Afib w/ RVR stage 1 colon cancer with Sue procedure performed 02/22 (Dr. Ventura). Patient with urine leak from abdominal site (02/26) found to have L sided ureteral extravasation with L nephrostomy tube placement (02/28). PLAN #Septic Shock possibly 2/2 urine leak -patient is now normotensive -CX negative -no longer on abx as per ID -monitor hemodynamics #GI Abcess with urine leak and leukocytosis - Blood cultures (02/17) - without growth - Abscess culture (02/20) - lactose fermenting gram neg bacilli, coag pos staph , yeast - no longer on abx as per ID - Tylenol PRN for fever #Ureteral Extravasation with nephrostomy tube placementt. - L nephrostomy tube placed 02/28 - Lentz - monitor urine output from nephrostomy tube -Cr from nephrosotmy tube came back at 30 -pateint was unable to have stent placed; Dr Persaud from [facility] will be seeing patient as he will be likely transferred there for procedure as per Dr. Espinosa but will need a 2 month cool down period and will need a SNF for some time #PE evidence of right heart strain on ECHo -CTA done showing posssible PE in right upper lobe and right middle lobe of lung -currently on heparin drip; will be transitioning to eliquis 5mg BID tonight #Colon Ca s/p Harrtmanns procedure -patient now has wound vac in place -f/u oncology recs #Hypothyroidism -TSH within normal limits c/w home dose of levothyroxine F/E/N -LR @100mls/hr -monitor electrolytes - soft diet GI ppx - Protonix 40mg daily DVT ppx - heparin drip Problem List - Problems (1) Abdominal pain Code(s): R10.9 - UNSPECIFIED ABDOMINAL PAIN Qualifiers: Abdominal location: left lower quadrant Qualified Code(s): R10.32 - Left lower quadrant pain (2) Abnormal colonoscopy Code(s): R93.3 - ABNORMAL FINDINGS ON DX IMAGING OF PRT DIGESTIVE TRACT (3) Afib Code(s): I48.91 - UNSPECIFIED ATRIAL FIBRILLATION (4) Left ureteral injury Code(s): S37.10XA - UNSPECIFIED INJURY OF URETER, INITIAL ENCOUNTER Visit type - Emergency Visit Emergency Visit: Yes ED Registration Date: 02/13/18 Care time: The patient presented to the Emergency Department on the above date and was hospitalized for further evaluation of their emergent condition. - New Patient This patient is new to me today: No - Critical Care Critical Care patient: No
[2018-03-14] MEDS: PANTOPRAZOLE 40 MG TABLET (FP) PO SCH (10:16)
[2018-03-14] MEDS: AMINO ACIDS/PROTEIN HYDROLYS 30 ML LIQUID.PKT PO SCH ×2 (10:16→17:09)
[2018-03-14] MEDS: HEPARIN SOD,PORK IN 0.45% NACL 25,000 UNITS/500 ML INFUS.BAG IVPB SCH ×2 (10:17→13:27)
--- NOTE | 2018-03-14 15:03 | PN ---
Progress Note, Physician History of Present Illness: stable no issues doing well nephrostomy and urostomy draining well - Current Medication List Current Medications: Active Medications Acetaminophen (Tylenol -) 650 mg PO Q4H PRN PRN Reason: FEVER Last Admin: 03/13/18 15:30 Dose: 650 mg Amino Acids (Prosource No Carb Liquid Pkt) 30 ml PO BID@0800,1730 [facility] Last Admin: 03/14/18 10:16 Dose: 30 ml Apixaban (Eliquis -) 5 mg PO BID [facility] Benzocaine/Menthol (Cepacol Lozenge -) 1 each MM DAILY PRN PRN Reason: SORE THROAT Diphenhydramine HCl (Benadryl Injection -) 12.5 mg IVPUSH ONCE PRN PRN Reason: FOR ITCHING Stop: 03/14/18 16:02 Heparin Sodium (Porcine) (Heparin -) 1,000 unit IVPUSH PRN PRN PRN Reason: Heparin Last Admin: 03/14/18 10:19 Dose: 1,000 unit Heparin Sodium (Porcine) (Heparin -) 5,000 unit IVPUSH PRN PRN PRN Reason: Heparin HEPARIN SOD,PORK IN 0.45% NACL (Heparin-1/2ns 25,000 Units/500) 25,000 units in 500 mls @ 20 mls/hr IVPB TITR [facility]; Protocol Stop: 03/14/18 20:00 Last Admin: 03/14/18 13:27 Dose: 1,150 units/hr, 23 mls/hr Levothyroxine Sodium (Synthroid -) 112 mcg PO DAILY@0700 [facility] Last Admin: 03/14/18 06:25 Dose: 112 mcg Ondansetron HCl (Zofran Injection) 8 mg IVPB Q8H PRN PRN Reason: NAUSEA Pantoprazole Sodium (Protonix -) 40 mg PO DAILY [facility] Last Admin: 03/14/18 10:16 Dose: 40 mg Simethicone (Mylicon -) 80 mg PO Q4H PRN PRN Reason: GAS - Objective Vital Signs: Vital Signs Temperature 97 F L 03/14/18 09:00 Pulse Rate 66 03/14/18 09:00 Respiratory Rate 20 03/14/18 09:00 Blood Pressure 119/76 03/14/18 09:00 O2 Sat by Pulse Oximetry (%) 95 03/14/18 09:00 Constitutional: Yes: No Distress, Calm Cardiovascular: Yes: Regular Rate and Rhythm Respiratory: Yes: Regular, CTA Bilaterally Gastrointestinal: Yes: Normal Bowel Sounds, Soft Genitourinary: Yes: Other (nephrostomy tube and urostomy tube in place) Musculoskeletal: Yes: WNL Extremities: Yes: WNL Neurological: Yes: Alert, Oriented Psychiatric: Yes: Alert, Oriented Labs: CBC, BMP 03/14/18 05:30 03/14/18 05:30 INR, PTT INR 1.33 (0.83-1.09) H 02/21/18 20:30 Assessment/Plan Problem List - Problems (1) Neoplasm of sigmoid colon Code(s): D49.0 - NEOPLASM OF UNSPECIFIED BEHAVIOR OF DIGESTIVE SYSTEM (2) Sigmoid thickening Code(s): K63.9 - DISEASE OF INTESTINE, UNSPECIFIED (3) Abdominal pain Code(s): R10.9 - UNSPECIFIED ABDOMINAL PAIN Qualifiers: Abdominal location: left lower quadrant Qualified Code(s): R10.32 - Left lower quadrant pain (4) Abnormal colonoscopy Code(s): R93.3 - ABNORMAL FINDINGS ON DX IMAGING OF PRT DIGESTIVE TRACT fever abd distension DVT ? pe ureteral tear left s/p ext nephrostomy in view of patients hypotension,close watch on the the patient ,as patient might have infection plan stable off of abx continue to monitor rest as per the team patient improving
--- NOTE | 2018-03-14 15:03 | PN ---
Teaching Attending Note Name of Resident: Betty Cardoza ATTENDING PHYSICIAN STATEMENT I saw and evaluated the patient. I reviewed the resident's note and discussed the case with the resident. I agree with the resident's findings and plan as documented. SUBJECTIVE:asymptomatic. denies Cp, SOB, fever, chills, N/V/C/D. hematuria now resolved. OBJECTIVE: Last Vital Signs Temp Pulse Resp BP Pulse Ox 97 F L 66 20 119/76 95 03/14/18 09:00 03/14/18 09:00 03/14/18 09:00 03/14/18 09:00 03/14/18 09:00 General NAD CV S1 S2 RRR no murmur/rub/gallop Lungs CTA anteriorly Abdomen soft NT/ND +wound vac down center. +[place] drains x3 Extremities no pedal edema no calf tenderness ASSESSMENT AND PLAN: 57yo M with PMH hypothyroid presenetd to the ER with intermittent LLQ pain with recent colonoscopy with finding suspicious for malignancy. Pt underwent sigmoid colectomy on 02/14 which patient developed pneumoperitoneum and abdominal abscess and underwent ex-lap with abdominal washout and complete L hemicolectomy with Hartmans due to perforated diverticulum on 02/21. Pt went into AFib with RVR during the procedure which he self converted. Course complicated by L uretral injury iwth Ureteral extravsation seen with PCN tube was placed. [employer] called on 03/01 where pt was found to have a uroma where bedside pigtail placed and patient was transferred to ICU. patient care was [facility] at request of patient and family 1. Stage 1 colon ca s/p resection and Hartmans- s/p surgeries as stated above with wound vac and colostomy in place. Further wound care and wound vac management per surgical team. tolerating diet. pain control 2. Sepsis due to Urine leak-s/p pigtail placement bedside by IR draining clear urine. unable to place stent. Plan for follow [facility] uro-onc[facility] for stent placement in 3 months. nephrostomy tube in place. urology and ID on board 3. Abdominal abscess due to perforated diverticulum- s/p Hartmans 02/21. + polymicrobial (E.Coli, B.Fragilis, Yeast) completed abx course. repeat Cx NGTD. ID on board 4. Hematuria- possible trauma related. now resolved. Hgb has been stable. will place back on eliquis at this time. 5. +LLE DVT and PE-will switch hep ggt to eliquis. will need minimum 6 months of anticoagluation. will need to f/u with hematology as outpatient to determine length. 6. Tropinemia- demand due to sepsis and hypoxia. Trop peaked at 0.86 and trended down. no indication for further monitoring of troponins. no further workup at this time 7. PAF- no repeat episodes of afib noted. no further workup at this time 8. pseudohypocalcemia- corrected Ca 8.8 9. medically optimized for discharge at this time. Will need HERNANDEZ placement. awaiting bed availability and authorization.
[2018-03-14] MEDS ORDERED: PT OWN MED DRAWER 7, Y5N ONE (15:53)
[2018-03-14] MEDS: ACETAMINOPHEN 325 MG TABLET (FP) PO PRN (17:08)
--- NOTE | 2018-03-14 17:13 | PN ---
Progress Note, Physician Chief Complaint: abdominal pain and colon mass History of Present Illness: 57 yo male presenting to [facility] ER via private auto complaining of occasional lower left abdominal discomfort. stable post operatively after second laparotomy. Gas and air in the colostomy this morning, We were called to the bedside when the patinet was reporting more abdominal pain. he has been temporized with drainage catheters and rephrostomy but has a left ureteral injury that will require reconstruction. - Current Medication List Current Medications: Active Medications Acetaminophen (Tylenol -) 650 mg PO Q4H PRN PRN Reason: FEVER Last Admin: 03/14/18 17:08 Dose: 650 mg Amino Acids (Prosource No Carb Liquid Pkt) 30 ml PO BID@0800,1730 [facility] Last Admin: 03/14/18 17:09 Dose: 30 ml Apixaban (Eliquis -) 5 mg PO BID [facility] Benzocaine/Menthol (Cepacol Lozenge -) 1 each MM DAILY PRN PRN Reason: SORE THROAT Heparin Sodium (Porcine) (Heparin -) 1,000 unit IVPUSH PRN PRN PRN Reason: Heparin Last Admin: 03/14/18 10:19 Dose: 1,000 unit Heparin Sodium (Porcine) (Heparin -) 5,000 unit IVPUSH PRN PRN PRN Reason: Heparin HEPARIN SOD,PORK IN 0.45% NACL (Heparin-1/2ns 25,000 Units/500) 25,000 units in 500 mls @ 20 mls/hr IVPB TITR [facility]; Protocol Stop: 03/14/18 20:00 Last Admin: 03/14/18 13:27 Dose: 1,150 units/hr, 23 mls/hr Levothyroxine Sodium (Synthroid -) 112 mcg PO DAILY@0700 [facility] Last Admin: 03/14/18 06:25 Dose: 112 mcg Ondansetron HCl (Zofran Injection) 8 mg IVPB Q8H PRN PRN Reason: NAUSEA Pantoprazole Sodium (Protonix -) 40 mg PO DAILY [facility] Last Admin: 03/14/18 10:16 Dose: 40 mg Simethicone (Mylicon -) 80 mg PO Q4H PRN PRN Reason: GAS - Objective Vital Signs: Vital Signs Temperature 97 F L 03/14/18 09:00 Pulse Rate 66 03/14/18 09:00 Respiratory Rate 20 03/14/18 09:00 Blood Pressure 119/76 03/14/18 09:00 O2 Sat by Pulse Oximetry (%) 95 03/14/18 09:00 Constitutional: Yes: No Distress, Calm, Cachectic, Thin Eyes: Yes: Conjunctiva Clear, EOM Intact HENT: Yes: Atraumatic, Normocephalic Neck: Yes: Supple, Trachea Midline Cardiovascular: Yes: Regular Rate and Rhythm, S1, S2 Respiratory: Yes: Regular, CTA Bilaterally Gastrointestinal: Yes: Normal Bowel Sounds, Soft. No: Tenderness ...Rectal Exam: Yes: Deferred Genitourinary: No: CVA Tenderness - Left, CVA Tenderness - Right Breast(s): Yes: Gynecomastia Musculoskeletal: No: Muscle Pain, Muscle Weakness Extremities: No: Cool, Cyanosis Edema: No Peripheral Pulses WNL: Yes Peripheral Pulses: Left Radial: 2+, Right Radial: 2+, Left Doralis Pedis: 2+, Right Dorsalis Pedis: 2+, Left Femoral: 2+, Right Femoral: 2+ Integumentary: No: Jaundice, Skin Tear Wound/Incision: Yes: Clean/Dry, Draining, Unapproximated, Other (VAC, nephorstomy, colostomy, pigtail LLQ) Neurological: Yes: Alert, Oriented Psychiatric: Yes: Alert, Oriented Labs: CBC, BMP 03/14/18 05:30 03/14/18 05:30 INR, PTT INR 1.33 (0.83-1.09) H 02/21/18 20:30 Problem List - Problems (1) Neoplasm of sigmoid colon Assessment/Plan: POD#26 s/p sigmoid colectomy and primary anastomosis (due to sigmoid colon cancer) POD#19 s/p completion left colectomy and amado's (due to perforated diverticulum distal to anatomosis) POD#4 s/p cystoscopy by urology showed likely left ureteral transection. He will require follow up at [facility] ( tertiary care) Dr. Cristian Kennedy MD, urologic oncology and Gerry Meeks MD, colorectal surgery for reimplantation or uretal reconstruction over stent and colostomy reversal. I had family discussion with daughter and all parties are in agreement with the plan. During his 2 month wait until revision surgery he will follow up weekly at [facility] in wound care center for wound vac management. Advance diet as tolerated supplemental protein IVF hydration order VAC freedom, VAC change due 03/14 OOB and ambulate encourage IS will follow Discharge with abdominal drain, neprostomy, colostomy, and VAC with a plan to reconstruct in 2 months at [facility] Code(s): D49.0 - NEOPLASM OF UNSPECIFIED BEHAVIOR OF DIGESTIVE SYSTEM (2) Sigmoid thickening Code(s): K63.9 - DISEASE OF INTESTINE, UNSPECIFIED (3) Abdominal pain Code(s): R10.9 - UNSPECIFIED ABDOMINAL PAIN Qualifiers: Abdominal location: left lower quadrant Qualified Code(s): R10.32 - Left lower quadrant pain (4) Abnormal colonoscopy Code(s): R93.3 - ABNORMAL FINDINGS ON DX IMAGING OF PRT DIGESTIVE TRACT
[2018-03-14] MEDS: APIXABAN 5 MG TABLET PO SCH (22:00)
[2018-03-15] MEDS: LEVOTHYROXINE NA 112 MCG TABLET (FP) PO SCH (06:15)
[2018-03-15 07:27] LABS: HEMATOCRIT 31.5 % (35.4-49); HEMOGLOBIN 9.9 GM/dL (11.7-16.9); MCH 26.6 pg (25.7-33.7); MCHC 31.6 g/dl (32.0-35.9); MEAN CELL VOLUME 84.3 fl (80-96); MEAN PLT VOLUME 6.9 fl (7.5-11.1); PLATELET COUNT 315 K/MM3 (134-434); RBC 3.74 M/mm3 (4.00-5.60); RDW 20.4 % (11.9-15.9); WHITE BLOOD COUNT 5.3 K/mm3 (4.0-10.0)
[2018-03-15 07:58] LABS: ANION GAP 9 MMOL/L (8-16); BLOOD UREA NITROGEN 9 mg/dL (7-18); CALCIUM 8.1 mg/dL (8.5-10.1); CHLORIDE 104 mmol/L (98-107); CO2 27 mmol/L (21-32); CREATININE 0.5 mg/dL (0.55-1.3); GLUCOSE,RANDOM 89 mg/dL (74-106); MAGNESIUM 2.1 mg/dL (1.8-2.4); PHOSPHOROUS 4.4 mg/dL (2.5-4.9); POTASSIUM 4.2 mmol/L (3.5-5.1); SODIUM 140 mmol/L (136-145)
[2018-03-15] MEDS ORDERED: PT OWN MED DRAWER 7, Y5N ONE (10:25)
[2018-03-15] MEDS: PANTOPRAZOLE 40 MG TABLET (FP) PO SCH (10:28)
[2018-03-15] MEDS: AMINO ACIDS/PROTEIN HYDROLYS 30 ML LIQUID.PKT PO SCH ×2 (10:28→17:31)
[2018-03-15] MEDS: APIXABAN 5 MG TABLET PO SCH ×2 (10:28→21:33)
--- NOTE | 2018-03-15 10:42 | PN ---
Progress Note, Physician Chief Complaint: PULMONARY ALERT,NO DISTRESS,OOB-CHAIR,-SOB - Current Medication List Current Medications: Active Medications Acetaminophen (Tylenol -) 650 mg PO Q4H PRN PRN Reason: FEVER Last Admin: 03/14/18 17:08 Dose: 650 mg Amino Acids (Prosource No Carb Liquid Pkt) 30 ml PO BID@0800,1730 [facility] Last Admin: 03/15/18 10:28 Dose: 30 ml Apixaban (Eliquis -) 5 mg PO BID [facility] Last Admin: 03/15/18 10:28 Dose: 5 mg Benzocaine/Menthol (Cepacol Lozenge -) 1 each MM DAILY PRN PRN Reason: SORE THROAT Levothyroxine Sodium (Synthroid -) 112 mcg PO DAILY@0700 [facility] Last Admin: 03/15/18 06:15 Dose: 112 mcg Ondansetron HCl (Zofran Injection) 8 mg IVPB Q8H PRN PRN Reason: NAUSEA Pantoprazole Sodium (Protonix -) 40 mg PO DAILY [facility] Last Admin: 03/15/18 10:28 Dose: 40 mg Simethicone (Mylicon -) 80 mg PO Q4H PRN PRN Reason: GAS - Objective Vital Signs: Vital Signs Temperature 98.2 F 03/15/18 06:00 Pulse Rate 65 03/15/18 06:00 Respiratory Rate 20 03/15/18 06:00 Blood Pressure 97/60 03/15/18 06:00 O2 Sat by Pulse Oximetry (%) 96 03/14/18 21:00 Constitutional: Yes: Well Nourished, Calm Eyes: Yes: WNL HENT: Yes: WNL Neck: Yes: WNL Cardiovascular: Yes: Regular Rate and Rhythm, S1, S2 Respiratory: Yes: Diminished Gastrointestinal: Yes: Normal Bowel Sounds, Soft Extremities: Yes: WNL Edema: No Labs: CBC, BMP 03/15/18 05:30 03/15/18 05:30 INR, PTT INR 1.33 (0.83-1.09) H 02/21/18 20:30 Problem List - Problems (1) DVT (deep venous thrombosis) Code(s): I82.409 - ACUTE EMBOLISM AND THOMBOS UNSP DEEP VN UNSP LOWER EXTREMITY (2) Afib Code(s): I48.91 - UNSPECIFIED ATRIAL FIBRILLATION (3) Anemia Code(s): D64.9 - ANEMIA, UNSPECIFIED (4) Left ureteral injury Code(s): S37.10XA - UNSPECIFIED INJURY OF URETER, INITIAL ENCOUNTER (5) Neoplasm of sigmoid colon Code(s): D49.0 - NEOPLASM OF UNSPECIFIED BEHAVIOR OF DIGESTIVE SYSTEM (6) Pulmonary emboli Code(s): I26.99 - OTHER PULMONARY EMBOLISM WITHOUT ACUTE COR PULMONALE Assessment/Plan ASSESSMENT AND PLAN: Colon CA S/P Sigmoid Colectomy 02/14 Post op Fecal Peritonitis/Perforated Diverticulum S/P ex-lap/abdominal washout/Left Colectomy/End Colostomy Paroxysmal Atrial Fibrillation s/p Acute Hypoxic Respiratory Failure Left Ureteral Leak s/p Nephrostomy placement Intra-abdominal Abscess s/p IR drainage Septic Shock resolved +Troponins likely Demand Ischemia Hypothyroidism DVT/PE - pain control - incentive spirometry - PO as tolerated - O2 to keep Spo2 >90 - Ricky FRIEND
--- NOTE | 2018-03-15 10:51 | PN ---
Progress Note, Physician Chief Complaint: abdominal pain and colon mass History of Present Illness: 57 yo male presenting to [facility] ER via private auto complaining of occasional lower left abdominal discomfort. stable post operatively after second laparotomy. Gas and air in the colostomy this morning, We were called to the bedside when the patinet was reporting more abdominal pain. he has been temporized with drainage catheters and rephrostomy but has a left ureteral injury that will require reconstruction. - Current Medication List Current Medications: Active Medications Acetaminophen (Tylenol -) 650 mg PO Q4H PRN PRN Reason: FEVER Last Admin: 03/14/18 17:08 Dose: 650 mg Amino Acids (Prosource No Carb Liquid Pkt) 30 ml PO BID@0800,1730 [facility] Last Admin: 03/15/18 10:28 Dose: 30 ml Apixaban (Eliquis -) 5 mg PO BID [facility] Last Admin: 03/15/18 10:28 Dose: 5 mg Benzocaine/Menthol (Cepacol Lozenge -) 1 each MM DAILY PRN PRN Reason: SORE THROAT Levothyroxine Sodium (Synthroid -) 112 mcg PO DAILY@0700 [facility] Last Admin: 03/15/18 06:15 Dose: 112 mcg Ondansetron HCl (Zofran Injection) 8 mg IVPB Q8H PRN PRN Reason: NAUSEA Pantoprazole Sodium (Protonix -) 40 mg PO DAILY [facility] Last Admin: 03/15/18 10:28 Dose: 40 mg Simethicone (Mylicon -) 80 mg PO Q4H PRN PRN Reason: GAS - Objective Vital Signs: Vital Signs Temperature 98.2 F 03/15/18 06:00 Pulse Rate 65 03/15/18 06:00 Respiratory Rate 20 03/15/18 06:00 Blood Pressure 97/60 03/15/18 06:00 O2 Sat by Pulse Oximetry (%) 96 03/14/18 21:00 Vital Signs Period Temp Pulse Resp BP Sys/Cavanaugh Pulse Ox Last 24 Hr 97.5 F-98.8 F 64-76 18-20 82-105/48-64 96-98 Constitutional: Yes: Well Nourished, No Distress, Calm, Thin Eyes: Yes: Conjunctiva Clear, EOM Intact HENT: Yes: Atraumatic, Normocephalic Neck: Yes: Supple, Trachea Midline Cardiovascular: Yes: Regular Rate and Rhythm, S1, S2 Respiratory: Yes: Regular, CTA Bilaterally Gastrointestinal: Yes: Normal Bowel Sounds, Soft. No: Tenderness ...Rectal Exam: Yes: Deferred Genitourinary: No: CVA Tenderness - Left, CVA Tenderness - Right Musculoskeletal: No: Muscle Pain, Muscle Weakness Extremities: No: Cyanosis Edema: No Peripheral Pulses WNL: Yes Peripheral Pulses: Left Radial: 2+, Right Radial: 2+, Left Doralis Pedis: 2+, Right Dorsalis Pedis: 2+, Left Femoral: 2+, Right Femoral: 2+ Integumentary: No: Jaundice, Rash Wound/Incision: Yes: Clean/Dry, Well Approximated Neurological: Yes: Alert, Oriented Psychiatric: Yes: Alert, Oriented Labs: CBC, BMP 03/15/18 05:30 03/15/18 05:30 INR, PTT INR 1.33 (0.83-1.09) H 02/21/18 20:30 Problem List - Problems (1) Neoplasm of sigmoid colon Assessment/Plan: POD#26 s/p sigmoid colectomy and primary anastomosis (due to sigmoid colon cancer) POD#19 s/p completion left colectomy and amado's (due to perforated diverticulum distal to anatomosis) POD#4 s/p cystoscopy by urology showed likely left ureteral transection. He will require follow up at [facility] ( tertiary care) Dr. Cristian Kennedy MD, urologic oncology and Gerry Meeks MD, colorectal surgery for reimplantation or uteral reconstruction over stent and colostomy reversal. I had family discussion with daughter and all parties are in agreement with the plan. During his 2 month wait until revision surgery he will follow up weekly at [facility] in wound care center for wound vac management. optimize nutrition IVF hydration order VAC freedom, VAC change due 03/18 encourage IS will follow Discharge with abdominal drain, neprostomy, colostomy, and VAC with a plan to reconstruct in 2 months at [facility] Code(s): D49.0 - NEOPLASM OF UNSPECIFIED BEHAVIOR OF DIGESTIVE SYSTEM (2) Sigmoid thickening Code(s): K63.9 - DISEASE OF INTESTINE, UNSPECIFIED (3) Abdominal pain Code(s): R10.9 - UNSPECIFIED ABDOMINAL PAIN Qualifiers: Abdominal location: left lower quadrant Qualified Code(s): R10.32 - Left lower quadrant pain (4) Abnormal colonoscopy Code(s): R93.3 - ABNORMAL FINDINGS ON DX IMAGING OF PRT DIGESTIVE TRACT
--- NOTE | 2018-03-15 10:56 | PN ---
Addendum entered and electronically signed by Betty Cardoza, RESIDENT 13:38: patient's nephrostomy tube now growing pus; stat urine cx sent Dr Perry starting patient on zosyn- Dr dorman made aware Original Note: Physical Exam: SUBJECTIVE: Patient seen and examined at bedside- patient was hypotensive overnight- we switched patient to eliquis last night and this AM patients nephrostomy tube is bloody; however, he denies any CP/SOB/N/V fevers or chills OBJECTIVE: Vital Signs Period Temp Pulse Resp BP Sys/Cavanaugh Pulse Ox Last 24 Hr 98.1 F-98.5 F 65-70 20-20 93-103/60-65 96 GENERAL: The patient is awake, alert, and fully oriented, in no acute distress. EYES: no scleral icterus NECK: no JVD no lymphadenopathy LUNGS: CTA B/L; no rales, rhonchi or wheezing HEART: Regular rate and rhythm, S1, S2 without murmur, rub or gallop. ABDOMEN: Soft, nontender, nondistended, normoactive bowel sounds, wound vac in place, nephrostomy tube (blood tinged), pigtail tube in place EXTREMITIES: 2+ pulses, warm, well-perfused, no edema. PSYCH: Normal mood, normal affect. SKIN: Warm, dry, normal turgor, no rashes or lesions noted Laboratory Results - last 24 hr 03/14/18 03/15/18 03/15/18 12:45 05:30 05:30 WBC 5.3 RBC 3.74 L Hgb 9.9 L Hct 31.5 L MCV 84.3 MCH 26.6 MCHC 31.6 L RDW 20.4 H Plt Count 315 MPV 6.9 L PTT (Actin FS) 60.4 H 37.8 H Sodium Potassium Chloride Carbon Dioxide Anion Gap BUN Creatinine Creat Clearance w eGFR Random Glucose Calcium Phosphorus Magnesium 03/15/18 05:30 WBC RBC Hgb Hct MCV MCH MCHC RDW Plt Count MPV PTT (Actin FS) Sodium 140 Potassium 4.2 Chloride 104 Carbon Dioxide 27 Anion Gap 9 BUN 9 Creatinine 0.5 L Creat Clearance w eGFR > 60 Random Glucose 89 Calcium 8.1 L Phosphorus 4.4 Magnesium 2.1 Active Medications Generic Name Dose Route Start Last Admin Trade Name Freq PRN Reason Stop Dose Admin Acetaminophen 650 mg 12/06/18 16:03 03/14/18 17:08 Tylenol - PO 650 mg Q4H PRN Administration FEVER Amino Acids 30 ml 03/09/18 17:30 03/15/18 10:28 Prosource No Carb Liquid Pkt PO 30 ml BID@0800,1730 JERED Administration Apixaban 5 mg 03/14/18 22:00 03/15/18 10:28 Eliquis - PO 5 mg BID JERED Administration Benzocaine/Menthol 1 each 03/09/18 16:03 Cepacol Lozenge - MM DAILY PRN SORE THROAT Levothyroxine Sodium 112 mcg 03/10/18 07:00 03/15/18 06:15 Synthroid - PO 112 mcg DAILY@0700 JERED Administration Ondansetron HCl 8 mg 03/09/18 16:03 Zofran Injection IVPB Q8H PRN NAUSEA Pantoprazole Sodium 40 mg 03/10/18 10:00 03/15/18 10:28 Protonix - PO 40 mg DAILY JERED Administration Simethicone 80 mg 03/09/18 16:03 Mylicon - PO Q4H PRN GAS ASSESSMENT/PLAN: 57 year old man with history of hypothyroidism, Afib w/ RVR stage 1 colon cancer with Sue procedure performed 02/22 (Dr. Ventura). Patient with urine leak from abdominal site (02/26) found to have L sided ureteral extravasation with L nephrostomy tube placement (02/28). PLAN #Septic Shock possibly 2/2 urine leak -patient is now normotensive -CX negative -no longer on abx as per ID -monitor hemodynamics #GI Abcess with urine leak and leukocytosis - Blood cultures (02/17) - without growth - Abscess culture (02/20) - lactose fermenting gram neg bacilli, coag pos staph , yeast - no longer on abx as per ID - Tylenol PRN for fever #Ureteral Extravasation with nephrostomy tube placementt. - L nephrostomy tube placed 02/28 - Lentz - monitor urine output from nephrostomy tube -Cr from nephrosotmy tube came back at 30 -pateint was unable to have stent placed; Dr Persaud from [facility] will be seeing patient as he will be likely transferred there for procedure as per Dr. Espinosa but will need a 2 month cool down period and will need a SNF for some time #PE evidence of right heart strain on ECHo -CTA done showing possible PE in right upper lobe and right middle lobe of lung -switched patient to eliquis 5mg BID last night and now patient has bloody urine in nephrostomy tube- placed call out to Dr. Suh -Pulmonary on board #Colon Ca s/p Harrtmanns procedure -patient now has wound vac in place -f/u oncology recs #Hypothyroidism -TSH within normal limits c/w home dose of levothyroxine F/E/N -LR @100mls/hr -monitor electrolytes - soft diet GI ppx - Protonix 40mg daily DVT ppx - eliquis Problem List - Problems (1) Abdominal pain Code(s): R10.9 - UNSPECIFIED ABDOMINAL PAIN Qualifiers: Qualified Code(s): R10.32 - Left lower quadrant pain (2) Abnormal colonoscopy Code(s): R93.3 - ABNORMAL FINDINGS ON DX IMAGING OF PRT DIGESTIVE TRACT (3) Afib Code(s): I48.91 - UNSPECIFIED ATRIAL FIBRILLATION (4) Left ureteral injury Code(s): S37.10XA - UNSPECIFIED INJURY OF URETER, INITIAL ENCOUNTER Visit type - Emergency Visit Emergency Visit: Yes ED Registration Date: 02/13/18 Care time: The patient presented to the Emergency Department on the above date and was hospitalized for further evaluation of their emergent condition. - New Patient This patient is new to me today: No - Critical Care Critical Care patient: No
--- NOTE | 2018-03-15 13:02 | PN ---
Progress Note, Physician History of Present Illness: doing well no complaints - Current Medication List Current Medications: Active Medications Acetaminophen (Tylenol -) 650 mg PO Q4H PRN PRN Reason: FEVER Last Admin: 03/14/18 17:08 Dose: 650 mg Amino Acids (Prosource No Carb Liquid Pkt) 30 ml PO BID@0800,1730 [facility] Last Admin: 03/15/18 10:28 Dose: 30 ml Apixaban (Eliquis -) 5 mg PO BID [facility] Last Admin: 03/15/18 10:28 Dose: 5 mg Benzocaine/Menthol (Cepacol Lozenge -) 1 each MM DAILY PRN PRN Reason: SORE THROAT Levothyroxine Sodium (Synthroid -) 112 mcg PO DAILY@0700 [facility] Last Admin: 03/15/18 06:15 Dose: 112 mcg Ondansetron HCl (Zofran Injection) 8 mg IVPB Q8H PRN PRN Reason: NAUSEA Pantoprazole Sodium (Protonix -) 40 mg PO DAILY [facility] Last Admin: 03/15/18 10:28 Dose: 40 mg Simethicone (Mylicon -) 80 mg PO Q4H PRN PRN Reason: GAS - Objective Vital Signs: Vital Signs Temperature 98.2 F 03/15/18 06:00 Pulse Rate 65 03/15/18 06:00 Respiratory Rate 20 03/15/18 06:00 Blood Pressure 97/60 03/15/18 06:00 O2 Sat by Pulse Oximetry (%) 96 03/14/18 21:00 Constitutional: Yes: No Distress, Calm Cardiovascular: Yes: S1, S2 Respiratory: Yes: Regular, CTA Bilaterally Gastrointestinal: Yes: Normal Bowel Sounds, Soft Genitourinary: Yes: Other (both tubes draining well) Musculoskeletal: Yes: WNL Extremities: Yes: WNL Neurological: Yes: Alert, Oriented Psychiatric: Yes: Alert, Oriented Labs: CBC, BMP 03/15/18 05:30 03/15/18 05:30 INR, PTT INR 1.33 (0.83-1.09) H 02/21/18 20:30 Assessment/Plan Problem List - Problems (1) Neoplasm of sigmoid colon Code(s): D49.0 - NEOPLASM OF UNSPECIFIED BEHAVIOR OF DIGESTIVE SYSTEM (2) Sigmoid thickening Code(s): K63.9 - DISEASE OF INTESTINE, UNSPECIFIED (3) Abdominal pain Code(s): R10.9 - UNSPECIFIED ABDOMINAL PAIN Qualifiers: Abdominal location: left lower quadrant Qualified Code(s): R10.32 - Left lower quadrant pain (4) Abnormal colonoscopy Code(s): R93.3 - ABNORMAL FINDINGS ON DX IMAGING OF PRT DIGESTIVE TRACT fever abd distension DVT ? pe ureteral tear left s/p ext nephrostomy in view of patients hypotension,close watch on the the patient ,as patient might have infection plan stable off of abx continue to monitor rest as per the team patient improving
[2018-03-15] MEDS ORDERED: PIPERACILLIN/TAZOBACTAM 3.375 GM VIAL IVPB ONE ×2 (13:48→18:22)
[2018-03-15] MEDS ORDERED: DEXTROSE 5%-WATER - 50 ML IVPB ONE ×2 (13:48→18:22)
[2018-03-15] MEDS: PIPERACILLIN/TAZOB 3.375 GM 3.375 GM in DEXTROSE 5%-WATER - 50 ML IVPB SCH ×2 (13:49→19:01)
[2018-03-15] MEDS ORDERED: SODIUM CHLORIDE 1,000 ML IV SCH (15:15)
--- NOTE | 2018-03-15 18:35 | PN ---
Teaching Attending Note Name of Resident: Betty Cardoza ATTENDING PHYSICIAN STATEMENT I saw and evaluated the patient. I reviewed the resident's note and discussed the case with the resident. I agree with the resident's findings and plan as documented. SUBJECTIVE: Patient has no complaints. OBJECTIVE: Vital Signs Period Temp Pulse Resp BP Sys/Cavanaugh Pulse Ox Last 24 Hr 98 F-98.5 F 65-78 20-20 93-104/60-65 96 HEART: S1S2, RRR LUNGS: Clear ABDOMEN: Soft, non-tender, non-distended, normal BS, vertical midline incision with VAC in place, left lateral drainage catheter in place draining bloody urine , colostomy with liquid brown stool in bag BACK: Left nephrostomy tube in place draining thick yellow fluid EXTREMITIES: No edema Laboratory Results - last 24 hr 03/15/18 03/15/18 03/15/18 05:30 05:30 05:30 WBC 5.3 RBC 3.74 L Hgb 9.9 L Hct 31.5 L MCV 84.3 MCH 26.6 MCHC 31.6 L RDW 20.4 H Plt Count 315 MPV 6.9 L PTT (Actin FS) 37.8 H Sodium 140 Potassium 4.2 Chloride 104 Carbon Dioxide 27 Anion Gap 9 BUN 9 Creatinine 0.5 L Creat Clearance w eGFR > 60 Random Glucose 89 Calcium 8.1 L Phosphorus 4.4 Magnesium 2.1 Current Medications Generic Name Dose Route Start Last Admin Trade Name Freq PRN Reason Stop Dose Admin Acetaminophen 650 mg 03/09/18 16:03 03/14/18 17:08 Tylenol - PO 650 mg Q4H PRN Administration FEVER Amino Acids 30 ml 03/09/18 17:30 03/15/18 17:31 Prosource No Carb Liquid Pkt PO 30 ml BID@0800,1730 JERED Administration Apixaban 5 mg 03/15/18 22:00 Eliquis - PO BID JERED Benzocaine/Menthol 1 each 03/09/18 16:03 Cepacol Lozenge - MM DAILY PRN SORE THROAT Piperacillin Sod/Tazobactam 50 mls @ 100 mls/hr 03/15/18 13:45 03/15/18 13:49 Sod 3.375 gm/ Dextrose IVPB 100 mls/hr Q8H-IV JERED Administration Protocol Sodium Chloride 1,000 mls @ 100 mls/hr 03/15/18 15:15 03/15/18 17:33 Normal Saline - IV 100 mls/hr ASDIR JERED Administration Levothyroxine Sodium 112 mcg 03/10/18 07:00 03/15/18 06:15 Synthroid - PO 112 mcg DAILY@0700 JERED Administration Ondansetron HCl 8 mg 03/09/18 16:03 Zofran Injection IVPB Q8H PRN NAUSEA Pantoprazole Sodium 40 mg 03/10/18 10:00 03/15/18 10:28 Protonix - PO 40 mg DAILY JERED Administration Simethicone 80 mg 03/09/18 16:03 Mylicon - PO Q4H PRN GAS ASSESSMENT AND PLAN: This is a 57 year old man with a history of hypothyroidism who presented to the ED with LLQ pain one week after a mass was found on colonoscopy. 1. Adenocarcinoma of colon - s/p sigmoid colectomy with primary anastomosis 02/14 2. Perforated diverticulitis distal to anastomosis with peritonitis - s/p exploratory laparotomy, abdominal wash out, completion left colectomy, Sue's 02/21 - Maintain wound VAC 3. Probable transection of left ureter - s/p left percutaneous nephrostomy by IR 02/27 - Now draining purulent fluid - culture sent and Zosyn started - s/p drainage of uroma by IR 03/01 - Will need follow up on [facility] for reimplantation or reconstruction and colostomy reversal in 2 months 4. Septic shock - Resolved 5. LLE DVT and PE - Continue Eliquis x 6 months with hematology follow up 6. Demand ischemia 7. Paroxysmal atrial fib 8. Acute hypoxic respiratory failure - Resolved 9. Hypothyroidism - Continue Synthroid 10. Disposition - Plan for subacute rehab
[2018-03-15] MEDS: ACETAMINOPHEN 325 MG TABLET (FP) PO PRN (19:03)
[2018-03-16] MEDS ORDERED: PIPERACILLIN/TAZOBACTAM 3.375 GM VIAL IVPB ONE ×3 (02:56→18:24)
[2018-03-16] MEDS ORDERED: DEXTROSE 5%-WATER - 50 ML IVPB ONE ×3 (02:56→18:24)
[2018-03-16] MEDS: PIPERACILLIN/TAZOB 3.375 GM 3.375 GM in DEXTROSE 5%-WATER - 50 ML IVPB SCH ×3 (03:05→18:27)
[2018-03-16] MEDS: LEVOTHYROXINE NA 112 MCG TABLET (FP) PO SCH (06:43)
[2018-03-16 06:57] LABS: HEMATOCRIT 28.9 % (35.4-49); HEMOGLOBIN 9.7 GM/dL (11.7-16.9); MCHC 33.6 g/dl (32.0-35.9); MEAN CELL VOLUME 83.3 fl (80-96); MEAN PLT VOLUME 6.7 fl (7.5-11.1); PLATELET COUNT 330 K/MM3 (134-434); RBC 3.47 M/mm3 (4.00-5.60); RDW 19.9 % (11.9-15.9); WHITE BLOOD COUNT 4.9 K/mm3 (4.0-10.0)
[2018-03-16 07:13] LABS: INR 1.4 (0.83-1.09); PROTHROMBIN TIME (PATIENT) 16.6 SEC (9.7-13.0)
[2018-03-16 07:41] LABS: ANION GAP 8 MMOL/L (8-16); BLOOD UREA NITROGEN 10 mg/dL (7-18); CALCIUM 7.9 mg/dL (8.5-10.1); CHLORIDE 105 mmol/L (98-107); CO2 27 mmol/L (21-32); CREATININE 0.5 mg/dL (0.55-1.3); GLUCOSE,RANDOM 93 mg/dL (74-106); MAGNESIUM 1.9 mg/dL (1.8-2.4); PHOSPHOROUS 4.1 mg/dL (2.5-4.9); SODIUM 140 mmol/L (136-145)
[2018-03-16] MEDS: SODIUM CHLORIDE 1,000 ML IV SCH (08:10)
[2018-03-16] MEDS: AMINO ACIDS/PROTEIN HYDROLYS 30 ML LIQUID.PKT PO SCH ×2 (09:08→18:27)
[2018-03-16] MEDS: APIXABAN 5 MG TABLET PO SCH ×2 (09:08→21:32)
[2018-03-16] MEDS: PANTOPRAZOLE 40 MG TABLET (FP) PO SCH (09:08)
--- NOTE | 2018-03-16 10:49 | PN ---
Progress Note, Physician History of Present Illness: PULMONARY ALERT,NO DISTRESS,-CP,-SOB - Current Medication List Current Medications: Active Medications Acetaminophen (Tylenol -) 650 mg PO Q4H PRN PRN Reason: FEVER Last Admin: 03/15/18 19:03 Dose: 650 mg Amino Acids (Prosource No Carb Liquid Pkt) 30 ml PO BID@0800,1730 [facility] Last Admin: 03/16/18 09:08 Dose: 30 ml Apixaban (Eliquis -) 5 mg PO BID [facility] Last Admin: 03/16/18 09:08 Dose: 5 mg Benzocaine/Menthol (Cepacol Lozenge -) 1 each MM DAILY PRN PRN Reason: SORE THROAT Piperacillin Sod/Tazobactam (Sod 3.375 gm/ Dextrose) 50 mls @ 100 mls/hr IVPB Q8H-IV JERED; Protocol Last Admin: 03/16/18 09:10 Dose: 100 mls/hr Sodium Chloride (Normal Saline -) 1,000 mls @ 125 mls/hr IV ASDIR [facility] Last Admin: 03/16/18 08:10 Dose: 125 mls/hr Levothyroxine Sodium (Synthroid -) 112 mcg PO DAILY@0700 [facility] Last Admin: 03/16/18 06:43 Dose: 112 mcg Ondansetron HCl (Zofran Injection) 8 mg IVPB Q8H PRN PRN Reason: NAUSEA Pantoprazole Sodium (Protonix -) 40 mg PO DAILY [facility] Last Admin: 03/16/18 09:08 Dose: 40 mg Simethicone (Mylicon -) 80 mg PO Q4H PRN PRN Reason: GAS - Objective Vital Signs: Vital Signs Temperature 98 F 03/16/18 10:00 Pulse Rate 70 03/16/18 10:00 Respiratory Rate 19 03/16/18 10:00 Blood Pressure 104/64 03/16/18 10:00 O2 Sat by Pulse Oximetry (%) 96 03/15/18 21:00 Constitutional: Yes: Well Nourished, Calm Eyes: Yes: WNL HENT: Yes: WNL Neck: Yes: WNL Cardiovascular: Yes: Pulse Irregular, S1, S2 Respiratory: Yes: CTA Bilaterally Gastrointestinal: Yes: Normal Bowel Sounds, Soft Extremities: Yes: WNL Edema: No Labs: CBC, BMP 03/16/18 05:30 03/16/18 05:30 INR, PTT INR 1.40 (0.83-1.09) H 03/16/18 05:30 Problem List - Problems (1) DVT (deep venous thrombosis) Code(s): I82.409 - ACUTE EMBOLISM AND THOMBOS UNSP DEEP VN UNSP LOWER EXTREMITY (2) Afib Code(s): I48.91 - UNSPECIFIED ATRIAL FIBRILLATION (3) Anemia Code(s): D64.9 - ANEMIA, UNSPECIFIED (4) Left ureteral injury Code(s): S37.10XA - UNSPECIFIED INJURY OF URETER, INITIAL ENCOUNTER (5) Neoplasm of sigmoid colon Code(s): D49.0 - NEOPLASM OF UNSPECIFIED BEHAVIOR OF DIGESTIVE SYSTEM (6) Pulmonary emboli Code(s): I26.99 - OTHER PULMONARY EMBOLISM WITHOUT ACUTE COR PULMONALE Assessment/Plan ASSESSMENT AND PLAN: Colon CA S/P Sigmoid Colectomy 02/14 Post op Fecal Peritonitis/Perforated Diverticulum S/P ex-lap/abdominal washout/Left Colectomy/End Colostomy Paroxysmal Atrial Fibrillation s/p Acute Hypoxic Respiratory Failure Left Ureteral Leak s/p Nephrostomy placement Intra-abdominal Abscess s/p IR drainage Septic Shock resolved +Troponins likely Demand Ischemia Hypothyroidism DVT/PE LIKELY PROVOKED - pain control - incentive spirometry - PO as tolerated - O2 to keep Spo2 >90 - Ricky FRIEND
[2018-03-16] MEDS ORDERED: SODIUM CHLORIDE 0.9% 500 ML INFUS.BAG IV ONE (11:30)
--- NOTE | 2018-03-16 13:05 | PN ---
Physical Exam: SUBJECTIVE: Patient seen and examined at bedside- patient was hypotensive overnight however denies any CP/palpitations or dizziness- urostomy tube still bloody and nephrosotmy tube possibly draining pus- cx sent; patient denies any CP/SOB?N/V fevers or chills OBJECTIVE: Vital Signs Period Temp Pulse Resp BP Sys/Cavanaugh Pulse Ox Last 24 Hr 97.5 F-98.8 F 64-78 19-20 82-104/48-64 96 GENERAL: The patient is awake, alert, and fully oriented, in no acute distress.. EYES: no scleral icterus . NECK: no JVD LUNGS: CTA B/L; no rales, rhonchi or wheezing HEART: Regular rate and rhythm, S1, S2 without murmur, rub or gallop. ABDOMEN: Soft, nontender, nondistended, normoactive bowel sounds, midline wound vac in place; nephrosotmy tube in place w/ slight pus; urosotmy tube in place w / blood tinged urine EXTREMITIES: 2+ pulses, warm, well-perfused, no edema. . PSYCH: Normal mood, normal affect. SKIN: Warm, dry, normal turgor, no rashes or lesions noted Laboratory Results - last 24 hr 03/16/18 03/16/18 03/16/18 05:30 05:30 05:30 WBC 4.9 RBC 3.47 L Hgb 9.7 L Hct 28.9 L MCV 83.3 MCH 28.0 MCHC 33.6 RDW 19.9 H Plt Count 330 MPV 6.7 L PT with INR 16.60 H INR 1.40 H Sodium 140 Potassium 4.0 Chloride 105 Carbon Dioxide 27 Anion Gap 8 BUN 10 Creatinine 0.5 L Creat Clearance w eGFR > 60 Random Glucose 93 Calcium 7.9 L Phosphorus 4.1 Magnesium 1.9 Active Medications Generic Name Dose Route Start Last Admin Trade Name Freq PRN Reason Stop Dose Admin Acetaminophen 650 mg 03/09/18 16:03 03/15/18 19:03 Tylenol - PO 650 mg Q4H PRN Administration FEVER Amino Acids 30 ml 03/09/18 17:30 03/16/18 09:08 Prosource No Carb Liquid Pkt PO 30 ml BID@0800,1730 JERED Administration Apixaban 5 mg 03/15/18 22:00 03/16/18 09:08 Eliquis - PO 5 mg BID JERED Administration Benzocaine/Menthol 1 each 03/09/18 16:03 Cepacol Lozenge - MM DAILY PRN SORE THROAT Piperacillin Sod/Tazobactam 50 mls @ 100 mls/hr 03/15/18 13:45 03/16/18 09:10 Sod 3.375 gm/ Dextrose IVPB 100 mls/hr Q8H-IV JERED Administration Protocol Sodium Chloride 1,000 mls @ 125 mls/hr 03/16/18 07:19 03/16/18 08:10 Normal Saline - IV 125 mls/hr ASDIR JERED Administration Levothyroxine Sodium 112 mcg 03/10/18 07:00 03/16/18 06:43 Synthroid - PO 112 mcg DAILY@0700 JERED Administration Ondansetron HCl 8 mg 03/09/18 16:03 Zofran Injection IVPB Q8H PRN NAUSEA Pantoprazole Sodium 40 mg 03/10/18 10:00 03/16/18 09:08 Protonix - PO 40 mg DAILY JERED Administration Simethicone 80 mg 03/09/18 16:03 Mylicon - PO Q4H PRN GAS ASSESSMENT/PLAN: 57 year old man with history of hypothyroidism, Afib w/ RVR stage 1 colon cancer with Sue procedure performed 02/22 (Dr. Ventura). Patient with urine leak from abdominal site (02/26) found to have L sided ureteral extravasation with L nephrostomy tube placement (02/28). PLAN #Septic Shock possibly 2/2 urine leak -patient has been hypotensive -cx taken again from urosotmy/nephrostmy tube -restarted pt on zosyn -awaiting cx -monitor hemodynamics #GI Abcess with urine leak and leukocytosis - Blood cultures (02/17) - without growth - Abscess culture (02/20) - lactose fermenting gram neg bacilli, coag pos staph , yeast - possible pus growing from nephrostomy tube - cx sent -restarted on zosyn -f/u cx #Ureteral Extravasation with nephrostomy tube placementt. - L nephrostomy tube placed 02/28 - Lentz - monitor urine output from nephrostomy tube -Cr from nephrosotmy tube came back at 30 -pateint was unable to have stent placed; Dr Persaud from [facility] will be seeing patient as he will be likely transferred there for procedure as per Dr. Espinosa but will need a 2 month cool down period and will need a SNF for some time #PE evidence of right heart strain on ECHo -CTA done showing possible PE in right upper lobe and right middle lobe of lung -switched patient to eliquis 5mg BID last night and now patient has bloody urine in nephrostomy tube- placed call out to Dr. Suh -Pulmonary on board #Colon Ca s/p Harrtmanns procedure -patient now has wound vac in place -f/u oncology recs #Hypothyroidism -TSH within normal limits c/w home dose of levothyroxine F/E/N -LR @100mls/hr -monitor electrolytes - soft diet GI ppx - Protonix 40mg daily DVT ppx - eliquis Problem List - Problems (1) Abdominal pain Code(s): R10.9 - UNSPECIFIED ABDOMINAL PAIN Qualifiers: Abdominal location: left lower quadrant Qualified Code(s): R10.32 - Left lower quadrant pain (2) Abnormal colonoscopy Code(s): R93.3 - ABNORMAL FINDINGS ON DX IMAGING OF PRT DIGESTIVE TRACT (3) Afib Code(s): I48.91 - UNSPECIFIED ATRIAL FIBRILLATION (4) Left ureteral injury Code(s): S37.10XA - UNSPECIFIED INJURY OF URETER, INITIAL ENCOUNTER Visit type - Emergency Visit Emergency Visit: Yes ED Registration Date: 02/13/18 Care time: The patient presented to the Emergency Department on the above date and was hospitalized for further evaluation of their emergent condition. - New Patient This patient is new to me today: No - Critical Care Critical Care patient: No
--- NOTE | 2018-03-16 14:05 | PN ---
Progress Note, Physician History of Present Illness: stable now hypotensive episodes noted urine looks like pus - Current Medication List Current Medications: Active Medications Acetaminophen (Tylenol -) 650 mg PO Q4H PRN PRN Reason: FEVER Last Admin: 03/15/18 19:03 Dose: 650 mg Amino Acids (Prosource No Carb Liquid Pkt) 30 ml PO BID@0800,1730 [facility] Last Admin: 03/16/18 09:08 Dose: 30 ml Apixaban (Eliquis -) 5 mg PO BID [facility] Last Admin: 03/16/18 09:08 Dose: 5 mg Benzocaine/Menthol (Cepacol Lozenge -) 1 each MM DAILY PRN PRN Reason: SORE THROAT Piperacillin Sod/Tazobactam (Sod 3.375 gm/ Dextrose) 50 mls @ 100 mls/hr IVPB Q8H-IV JERED; Protocol Last Admin: 03/16/18 09:10 Dose: 100 mls/hr Sodium Chloride (Normal Saline -) 1,000 mls @ 125 mls/hr IV ASDIR [facility] Last Admin: 03/16/18 08:10 Dose: 125 mls/hr Levothyroxine Sodium (Synthroid -) 112 mcg PO DAILY@0700 [facility] Last Admin: 03/16/18 06:43 Dose: 112 mcg Ondansetron HCl (Zofran Injection) 8 mg IVPB Q8H PRN PRN Reason: NAUSEA Pantoprazole Sodium (Protonix -) 40 mg PO DAILY [facility] Last Admin: 03/16/18 09:08 Dose: 40 mg Simethicone (Mylicon -) 80 mg PO Q4H PRN PRN Reason: GAS - Objective Vital Signs: Vital Signs Temperature 98 F 03/16/18 10:00 Pulse Rate 70 03/16/18 10:00 Respiratory Rate 19 03/16/18 10:00 Blood Pressure 104/64 03/16/18 10:00 O2 Sat by Pulse Oximetry (%) 96 03/15/18 21:00 Constitutional: Yes: No Distress, Calm Cardiovascular: Yes: Regular Rate and Rhythm Respiratory: Yes: Regular, CTA Bilaterally Gastrointestinal: Yes: Normal Bowel Sounds, Soft Genitourinary: Yes: Other (both tubes draining well) Musculoskeletal: Yes: WNL Extremities: Yes: WNL Neurological: Yes: Alert, Oriented Psychiatric: Yes: Alert, Oriented Labs: CBC, BMP 03/16/18 05:30 03/16/18 05:30 INR, PTT INR 1.40 (0.83-1.09) H 03/16/18 05:30 Assessment/Plan Problem List - Problems (1) Neoplasm of sigmoid colon Code(s): D49.0 - NEOPLASM OF UNSPECIFIED BEHAVIOR OF DIGESTIVE SYSTEM (2) Sigmoid thickening Code(s): K63.9 - DISEASE OF INTESTINE, UNSPECIFIED (3) Abdominal pain Code(s): R10.9 - UNSPECIFIED ABDOMINAL PAIN Qualifiers: Abdominal location: left lower quadrant Qualified Code(s): R10.32 - Left lower quadrant pain (4) Abnormal colonoscopy Code(s): R93.3 - ABNORMAL FINDINGS ON DX IMAGING OF PRT DIGESTIVE TRACT fever abd distension DVT ? pe ureteral tear left s/p ext nephrostomy plan will restart patient on abx resend cx from the nephrostomy tube might need change of the tube rest as per the team
--- NOTE | 2018-03-16 16:30 | PN ---
Teaching Attending Note Name of Resident: Betty Cardoza ATTENDING PHYSICIAN STATEMENT I saw and evaluated the patient. I reviewed the resident's note and discussed the case with the resident. I agree with the resident's findings and plan as documented. SUBJECTIVE: Patient has no complaints. OBJECTIVE: Vital Signs Period Temp Pulse Resp BP Sys/Cavanaugh Pulse Ox Last 24 Hr 97.5 F-98.8 F 64-76 18-20 82-105/48-64 96-98 HEART: S1S2, RRR LUNGS: Clear ABDOMEN: Soft, non-tender, non-distended, normal BS, vertical midline incision with VAC in place, left lateral drainage catheter in place draining bloody urine , colostomy with liquid brown stool in bag BACK: Left nephrostomy tube in place draining thick yellow fluid EXTREMITIES: No edema Laboratory Results - last 24 hr 03/16/18 03/16/18 03/16/18 05:30 05:30 05:30 WBC 4.9 RBC 3.47 L Hgb 9.7 L Hct 28.9 L MCV 83.3 MCH 28.0 MCHC 33.6 RDW 19.9 H Plt Count 330 MPV 6.7 L PT with INR 16.60 H INR 1.40 H Sodium 140 Potassium 4.0 Chloride 105 Carbon Dioxide 27 Anion Gap 8 BUN 10 Creatinine 0.5 L Creat Clearance w eGFR > 60 Random Glucose 93 Calcium 7.9 L Phosphorus 4.1 Magnesium 1.9 Current Medications Generic Name Dose Route Start Last Admin Trade Name Freq PRN Reason Stop Dose Admin Acetaminophen 650 mg 03/09/18 16:03 03/15/18 19:03 Tylenol - PO 650 mg Q4H PRN Administration FEVER Amino Acids 30 ml 03/09/18 17:30 03/16/18 09:08 Prosource No Carb Liquid Pkt PO 30 ml BID@0800,1730 JERED Administration Apixaban 5 mg 03/15/18 22:00 03/16/18 09:08 Eliquis - PO 5 mg BID JERED Administration Benzocaine/Menthol 1 each 03/09/18 16:03 Cepacol Lozenge - MM DAILY PRN SORE THROAT Piperacillin Sod/Tazobactam 50 mls @ 100 mls/hr 03/15/18 13:45 03/16/18 09:10 Sod 3.375 gm/ Dextrose IVPB 100 mls/hr Q8H-IV JERED Administration Protocol Sodium Chloride 1,000 mls @ 125 mls/hr 03/16/18 07:19 03/16/18 08:10 Normal Saline - IV 125 mls/hr ASDIR JERED Administration Levothyroxine Sodium 112 mcg 03/10/18 07:00 03/16/18 06:43 Synthroid - PO 112 mcg DAILY@0700 JERED Administration Ondansetron HCl 8 mg 03/09/18 16:03 Zofran Injection IVPB Q8H PRN NAUSEA Pantoprazole Sodium 40 mg 03/10/18 10:00 03/16/18 09:08 Protonix - PO 40 mg DAILY JERED Administration Simethicone 80 mg 03/09/18 16:03 Mylicon - PO Q4H PRN GAS ASSESSMENT AND PLAN: This is a 57 year old man with a history of hypothyroidism who presented to the ED with LLQ pain one week after a mass was found on colonoscopy. 1. Adenocarcinoma of colon - s/p sigmoid colectomy with primary anastomosis 02/14 2. Perforated diverticulitis distal to anastomosis with peritonitis - s/p exploratory laparotomy, abdominal wash out, completion left colectomy, Sue's 02/21 - Maintain wound VAC 3. Probable transection of left ureter - s/p left percutaneous nephrostomy by IR 02/27 - Now draining purulent fluid - culture (03/15) pending and on Zosyn - s/p drainage of uroma by IR 03/01 - [facility] or reconstruction and colostomy reversal in 2 months 4. Septic shock - Resolved 5. LLE DVT and PE - Continue Eliquis x 6 months with hematology follow up 6. Demand ischemia 7. Paroxysmal atrial fib 8. Acute hypoxic respiratory failure - Resolved 9. Hypothyroidism - Continue Synthroid 10. Anemia - Hemoglobin stable 11. Disposition - Plan for subacute rehab
--- NOTE | 2018-03-16 17:24 | PN ---
Progress Note, Physician Chief Complaint: abdominal pain and colon mass History of Present Illness: 57 yo male presenting to [facility] ER via private auto complaining of occasional lower left abdominal discomfort. stable post operatively after second laparotomy. Gas and air in the colostomy this morning, We were called to the bedside when the patinet was reporting more abdominal pain. he has been temporized with drainage catheters and rephrostomy but has a left ureteral injury that will require reconstruction. - Current Medication List Current Medications: Active Medications Acetaminophen (Tylenol -) 650 mg PO Q4H PRN PRN Reason: FEVER Last Admin: 03/15/18 19:03 Dose: 650 mg Amino Acids (Prosource No Carb Liquid Pkt) 30 ml PO BID@0800,1730 [facility] Last Admin: 03/16/18 09:08 Dose: 30 ml Apixaban (Eliquis -) 5 mg PO BID [facility] Last Admin: 03/16/18 09:08 Dose: 5 mg Benzocaine/Menthol (Cepacol Lozenge -) 1 each MM DAILY PRN PRN Reason: SORE THROAT Piperacillin Sod/Tazobactam (Sod 3.375 gm/ Dextrose) 50 mls @ 100 mls/hr IVPB Q8H-IV JERED; Protocol Last Admin: 03/16/18 09:10 Dose: 100 mls/hr Sodium Chloride (Normal Saline -) 1,000 mls @ 125 mls/hr IV ASDIR JERED Last Admin: 03/16/18 08:10 Dose: 125 mls/hr Levothyroxine Sodium (Synthroid -) 112 mcg PO DAILY@0700 [facility] Last Admin: 03/16/18 06:43 Dose: 112 mcg Ondansetron HCl (Zofran Injection) 8 mg IVPB Q8H PRN PRN Reason: NAUSEA Pantoprazole Sodium (Protonix -) 40 mg PO DAILY [facility] Last Admin: 03/16/18 09:08 Dose: 40 mg Simethicone (Mylicon -) 80 mg PO Q4H PRN PRN Reason: GAS - Objective Vital Signs: Vital Signs Temperature 98.2 F 03/16/18 14:00 Pulse Rate 64 03/16/18 14:00 Respiratory Rate 18 03/16/18 14:00 Blood Pressure 105/62 03/16/18 14:00 O2 Sat by Pulse Oximetry (%) 98 03/16/18 09:00 Vital Signs Period Temp Pulse Resp BP Sys/Cavanaugh Pulse Ox Last 24 Hr 97.5 F-98.8 F 64-76 18-20 82-105/48-64 96-98 Intake & Output 03/16/18 03/16/18 03/16/18 07:59 15:59 23:59 Intake Total 750 50 Output Total 600 200 Balance 150 -150 Weight 158 lb 9.6 oz Intake: IV 700 Normal Saline - 1,000 ml 700 @ 100 mls/hr IV ASDIR JERED Rx#:[id number] IVPB 50 50 Output: Urine 600 200 Left Nephrostomy 300 200 Void 300 Other: Voiding Method Toilet Weight Measurement Method Standing Scale Constitutional: Yes: Well Nourished, No Distress, Calm Eyes: Yes: Conjunctiva Clear, EOM Intact HENT: Yes: Atraumatic, Normocephalic, Tonsillar Exudate Neck: Yes: Trachea Midline Cardiovascular: Yes: Regular Rate and Rhythm, S1, S2 Respiratory: Yes: Regular, CTA Bilaterally Gastrointestinal: Yes: Normal Bowel Sounds, Soft, Other. No: Tenderness ...Rectal Exam: Yes: Deferred Genitourinary: No: CVA Tenderness - Left, CVA Tenderness - Right Extremities: No: Cool, Cyanosis Edema: No Peripheral Pulses WNL: Yes Peripheral Pulses: Left Radial: 2+, Right Radial: 2+, Left Doralis Pedis: 2+, Right Dorsalis Pedis: 2+, Left Femoral: 2+, Right Femoral: 2+ Wound/Incision: Yes: Clean/Dry, Dressing Dry and Intact, Unapproximated, Other ( VAC, nephorstomy, colostomy, pigtail LLQ) Neurological: Yes: Alert, Oriented Psychiatric: Yes: Alert, Oriented Labs: CBC, BMP 03/16/18 05:30 03/16/18 05:30 INR, PTT INR 1.40 (0.83-1.09) H 03/16/18 05:30 Microbiology 03/09/18 07:40 Urine - Urine Nephrostomy Tube Left Urine Culture - Final NO GROWTH OBTAINED 03/02/18 08:40 Blood - Peripheral Venous Blood Culture - Final NO GROWTH AFTER 5 DAYS INCUBATION 03/02/18 08:35 Blood - Peripheral Venous Blood Culture - Final NO GROWTH AFTER 5 DAYS INCUBATION 03/01/18 17:00 Ascites Gram Stain - Final 03/01/18 17:00 Ascites Body Fluid Culture - Final Yeast Like Organism 03/01/18 17:00 Ascites Anaerobic Culture - Final NO ANAEROBES WERE ISOLATED 03/01/18 17:00 Ascites AFB Smear Concentration - Final 03/01/18 17:00 Ascites Mycobacterial Culture - Preliminary 03/02/18 10:00 Urine - Urine Lentz Urine Culture - Final NO GROWTH OBTAINED 03/01/18 17:00 Ascites RADHA Preparation - Preliminary 03/01/18 17:00 Ascites Fungal Culture - Preliminary 02/24/18 14:50 Blood - Peripheral Venous Blood Culture - Final NO GROWTH AFTER 5 DAYS INCUBATION 02/24/18 14:30 Blood - Peripheral Venous Blood Culture - Final NO GROWTH AFTER 5 DAYS INCUBATION 02/22/18 21:40 Blood - Peripheral Venous Blood Culture - Final NO GROWTH AFTER 5 DAYS INCUBATION 02/22/18 20:15 Blood - Peripheral Venous Blood Culture - Final NO GROWTH AFTER 5 DAYS INCUBATION 02/20/18 14:30 Abscess Gram Stain - Final 02/20/18 14:30 Abscess Body Fluid Culture - Final Escherichia Coli Staphylococcus Aureus Yeast Like Organism 02/20/18 14:30 Abscess Anaerobic Culture - Final Bacteroides Fragilis 02/22/18 23:24 Urine - Urine Lentz Urine Culture - Final NO GROWTH OBTAINED 02/17/18 20:00 Blood - Peripheral Venous Blood Culture - Final NO GROWTH AFTER 5 DAYS INCUBATION 02/17/18 17:00 Blood - Peripheral Venous Blood Culture - Final NO GROWTH AFTER 5 DAYS INCUBATION 02/17/18 16:40 Urine - Urine Clean Catch Urine Culture - Final NO GROWTH OBTAINED Problem List - Problems (1) Neoplasm of sigmoid colon Assessment/Plan: POD#26 s/p sigmoid colectomy and primary anastomosis (due to sigmoid colon cancer) POD#19 s/p completion left colectomy and amado's (due to perforated diverticulum distal to anatomosis) POD#4 s/p cystoscopy by urology showed likely left ureteral transection. He will require follow up at [facility] ( tertiary care) Dr. Cristian Kennedy MD, urologic oncology and Gerry Meeks MD, colorectal surgery for reimplantation or uteral reconstruction over stent and colostomy reversal. I had family discussion with daughter and all parties are in agreement with the plan. During his 2 month wait until revision surgery he will follow up weekly at [facility] in wound care center wound management. optimize nutrition IVF hydration D/C VAC chneg to wet-to-dry encourage IS will follow Discharge with abdominal drain, neprostomy, colostomy, plan to reconstruct in 2 months at [facility] Code(s): D49.0 - NEOPLASM OF UNSPECIFIED BEHAVIOR OF DIGESTIVE SYSTEM (2) Sigmoid thickening Code(s): K63.9 - DISEASE OF INTESTINE, UNSPECIFIED (3) Abdominal pain Code(s): R10.9 - UNSPECIFIED ABDOMINAL PAIN Qualifiers: Abdominal location: left lower quadrant Qualified Code(s): R10.32 - Left lower quadrant pain (4) Abnormal colonoscopy Code(s): R93.3 - ABNORMAL FINDINGS ON DX IMAGING OF PRT DIGESTIVE TRACT
--- NOTE | 2018-03-16 21:28 | OP ---
DATE OF OPERATION: 02/14/2018 PREOPERATIVE DIAGNOSIS: Abdominal pain, sigmoid colon mass on colonoscopy. POSTOPERATIVE DIAGNOSIS: Abdominal pain, sigmoid colon mass on colonoscopy. PROCEDURE: Exploratory laparotomy, sigmoid colectomy, primary stapled anastomosis. ATTENDING SURGEON: Horacio Ventura MD ENVIRONMENTAL SERVICES TECH: Cheo Singh MD ANESTHESIOLOGIST: Madonna Bond MD ANESTHESIA: General SPECIMEN: Portion of the sigmoid colon with the stitch ashraf proximal. ESTIMATED BLOOD LOSS: 20 mL. IV FLUID ADMINISTERED: 2.2 L. INDICATION: Patient is presenting with a history of worsening abdominal pain. He had a recent colonoscopy by Dr. Lundberg and noted to have a sigmoid colon mass, which was biopsied, returned adenocarcinoma. He was counseled regarding risks, benefits, and alternatives to surgical sigmoid colectomy after bowel prep, signed informed consent, after explaining to him the risks, benefits, alternatives, and verbalizing his understanding. BRIEF FINDINGS: Patient had a sigmoid colon mass, which was tattooed, stitch ashraf proximal. There was a [id number] stapled anastomosis. PROCEDURE: The patient was brought to the operating room, placed in supine position on the operating table with bilateral arms extended 90 degrees perpendicular to the body's midline axis. The lower extremities had SCDs placed. Patient received a bowel prep, a standard Brown prep including oral antibiotics and mechanical bowel prep including GoLytely 1 day prior to surgery. He received intravenous antibiotics in the form of cefoxitin 2 g prior to start of surgery. He was induced with general anesthesia, endotracheally intubated. We began first with an anterior abdominal wall clip, prep and drape in standard surgical fashion. A formal timeout was completed, identifying the operative site and procedure; pathology was reviewed; imaging was reviewed, including a chest, abdomen and pelvis, and there did not appear to be metastatic disease. With all parties in agreement after the timeout, we began with a midline laparotomy incision, which was scribed to the skin and incised with a 10 blade scalpel. It was deepened and widened through subcutaneous tissue with Bovie cautery. Care was taken to obtain hemostasis throughout the dissection to the midline rectus fascia. The fascia was opened with Bovie cautery, revealing the preperitoneal space, which was elevated and then entered. The abdomen was opened with a finger protecting the abdominal viscera. Care was taken to open the incision in the lower aspect of the midline. We then began to examine the abdomen systematically quadrant by quadrant. In the right upper quadrant, there appeared to be a normal-appearing liver without stigmata of metastatic disease implants, a normal gallbladder. The stomach appeared somewhat patulous. After placement of an NG tube and decompression, stomach and omentum appeared healthy without evidence of metastatic disease. In the left lower quadrant, sigmoid colon was identified, appeared plastered to the left lateral sidewall at the pelvic brim. The right lower quadrant revealed the cecum and appendix appeared normal. Pelvic structures, including the bladder appeared also uninvolved in the process. We began our exploration of the area of interest, given the previous endoscopy and imaging. The sigmoid colon was explored and traced back along the line of Toldt towards the rectosigmoid junction. At this point, it was clear that there was an inflammatory reaction attributed to a desmoid type reaction in the vicinity of the sigmoid colon. It was foreshortened and the mesentery was difficult to mobilize. We began by finger fracture along the lateral wall and mobilization of line of Toldt to the left colon. This was done under direct visualization and mobilization of the colon towards the midline was achieved. The sigmoid itself was also cleared towards the midline and, with additional finger fracture toward the pelvis, we were able to free the sigmoid, and at this point the tattooing appeared prominent and observable in the mid sigmoid. A point distal to the area that appeared desmoplastic was selected and stapled with a TONY stapler size 60 mm, as the bowel was normal in caliber. The thickened portion of bowel that included tattoo and the colon palpable at the serosa was mobilized then proximally to the more proximal aspect of the sigmoid, where it was cross stapled at the confluence with the left colon. Upon the 2nd stapling with a TONY 60, the mesentery was then taken deep, close to the root, along the sigmoid, with a LigaSure device. Care was taken to avoid damage to any structures in the area. The specimen was passed off the field after marking the proximal aspect of the stapled anastomosis, which was approximately 5 cm in distal and proximal to the palpable tumor, and tattooed markings with a Prolene stitch, which was blue, was cut long to be obvious. We proceeded then with irrigation of the site. The roc ends of sigmoid colon appeared uninvolved in the process or the desmoplastic reaction and were planned for an anastomosis. A crotch stitch with 3-0 silk was used to approximate the limbs for a [id number] stapled anastomosis. There was adequate relaxation and approximation of the bowel with this, and the anastomosis would be tension free. In standard fashion, the stapled anastomosis was fashioned using colotomies, and a common lumen was made with a TONY size 60, allowing for approximately 3.5 cm of entry into the double lumen and a common channel, and then a TA was used to close the remaining colotomy; a TA size 60 was selected. With this stapled anastomosis complete, care was taken to wrap additional fatty epiploics around the anastomosis to bolster it. The site appeared clear. The root of the mesentery did not require additional approximation, as the rent was quite small. After completing this, the midline was closed using number 1 looped PDS from the superior and inferior poles toward the midline, was tied, and the skin was irrigated and closed with roc. The patient was stable throughout the procedure, did not require any transfusion. Instrument counts were correct at the end of the surgery, and he returned to recovery in stable condition. MD BUCK Goldman/[id number]
[2018-03-17] MEDS ORDERED: PIPERACILLIN/TAZOBACTAM 3.375 GM VIAL IVPB ONE ×3 (01:32→17:07)
[2018-03-17] MEDS ORDERED: DEXTROSE 5%-WATER - 50 ML IVPB ONE ×3 (01:33→17:07)
[2018-03-17] MEDS: PIPERACILLIN/TAZOB 3.375 GM 3.375 GM in DEXTROSE 5%-WATER - 50 ML IVPB SCH ×3 (01:37→17:12)
[2018-03-17 06:25] LABS: BASO % 0.7 % (0-2.0); HEMATOCRIT 29.3 % (35.4-49); HEMOGLOBIN 9.3 GM/dL (11.7-16.9); LYMPH % 24.6 % (8-40); MCH 26.9 pg (25.7-33.7); MCHC 31.8 g/dl (32.0-35.9); MEAN CELL VOLUME 84.7 fl (80-96); MEAN PLT VOLUME 6.6 fl (7.5-11.1); MONO % 8.9 % (3.8-10.2); NEUT % 62.8 % (42.8-82.8); PLATELET COUNT 337 K/MM3 (134-434); RBC 3.46 M/mm3 (4.00-5.60); RDW 20.2 % (11.9-15.9); WHITE BLOOD COUNT 5.2 K/mm3 (4.0-10.0)
[2018-03-17] MEDS: LEVOTHYROXINE NA 112 MCG TABLET (FP) PO SCH (06:36)
[2018-03-17 06:50] LABS: INR 1.44 (0.83-1.09); PROTHROMBIN TIME (PATIENT) 17.1 SEC (9.7-13.0)
[2018-03-17 07:03] LABS: ALBUMIN 2.3 g/dl (3.4-5.0); ALK PHOS 135 U/L (45-117); ANION GAP 5 MMOL/L (8-16); BILIRUBIN,TOTAL 0.3 mg/dL (0.2-1); BLOOD UREA NITROGEN 8 mg/dL (7-18); CALCIUM 7.9 mg/dL (8.5-10.1); CHLORIDE 106 mmol/L (98-107); CO2 29 mmol/L (21-32); CREATININE 0.5 mg/dL (0.55-1.3); GLUCOSE,RANDOM 82 mg/dL (74-106); MAGNESIUM 1.8 mg/dL (1.8-2.4); POTASSIUM 4.1 mmol/L (3.5-5.1); SGOT/AST 13 U/L (15-37); SGPT/ALT 37 U/L (13-61); SODIUM 140 mmol/L (136-145); TOT PROT 6.3 g/dl (6.4-8.2)
--- NOTE | 2018-03-17 07:46 | PN ---
Physical Exam: SUBJECTIVE: Patient seen and examined at bedside- no acute events overnight; patient is feeling well and strong and is anxious to leave; he was slightly hypotensive overnight; he denies any CP/SOB/N/V fevers or chills OBJECTIVE: Vital Signs Period Temp Pulse Resp BP Sys/Cavanaugh Pulse Ox Last 24 Hr 97.8 F-98.2 F 62-70 18-20 93-118/56-66 97-98 GENERAL: The patient is awake, alert, and fully oriented, in no acute distress. EYES: no scleral icterus NECK: no JVD. LUNGS: CTA B/L; no rales, rhonchi or wheezing HEART: Regular rate and rhythm, S1, S2 without murmur, rub or gallop. ABDOMEN: Soft, nontender, nondistended, normoactive bowel sounds, no guarding, no rebound, no hepatosplenomegaly, no masses urostomy bad in place with slight blood tinged urine, nephrosotomy tube in place, midline wound vac with colostomy bag EXTREMITIES: 2+ pulses, warm, well-perfused, no edema. . PSYCH: Normal mood, normal affect. SKIN: Warm, dry, normal turgor, no rashes or lesions noted Laboratory Results - last 24 hr 03/17/18 03/17/18 03/17/18 05:30 05:30 05:30 WBC 5.2 RBC 3.46 L Hgb 9.3 L Hct 29.3 L MCV 84.7 MCH 26.9 MCHC 31.8 L RDW 20.2 H Plt Count 337 MPV 6.6 L Absolute Neuts (auto) 3.2 Neutrophils % 62.8 Lymphocytes % 24.6 Monocytes % 8.9 Eosinophils % 3.0 Basophils % 0.7 Nucleated RBC % 0 PT with INR 17.10 H INR 1.44 H Sodium 140 Potassium 4.1 Chloride 106 Carbon Dioxide 29 Anion Gap 5 L BUN 8 Creatinine 0.5 L Creat Clearance w eGFR > 60 Random Glucose 82 Calcium 7.9 L Phosphorus 4.0 Magnesium 1.8 Total Bilirubin 0.3 AST 13 L ALT 37 Alkaline Phosphatase 135 H Total Protein 6.3 L Albumin 2.3 L Active Medications Generic Name Dose Route Start Last Admin Trade Name Freq PRN Reason Stop Dose Admin Acetaminophen 650 mg 03/09/18 16:03 03/15/18 19:03 Tylenol - PO 650 mg Q4H PRN Administration FEVER Amino Acids 30 ml 03/09/18 17:30 03/16/18 18:27 Prosource No Carb Liquid Pkt PO 30 ml BID@0800,1730 JERED Administration Apixaban 5 mg 03/15/18 22:00 03/16/18 21:32 Eliquis - PO 5 mg BID JERED Administration Benzocaine/Menthol 1 each 03/09/18 16:03 Cepacol Lozenge - MM DAILY PRN SORE THROAT Piperacillin Sod/Tazobactam 50 mls @ 100 mls/hr 03/15/18 13:45 03/17/18 01:37 Sod 3.375 gm/ Dextrose IVPB 100 mls/hr Q8H-IV JERED Administration Protocol Sodium Chloride 1,000 mls @ 125 mls/hr 03/16/18 07:19 03/16/18 08:10 Normal Saline - IV 125 mls/hr ASDIR JERED Administration Levothyroxine Sodium 112 mcg 03/10/18 07:00 03/17/18 06:36 Synthroid - PO 112 mcg DAILY@0700 EJRED Administration Ondansetron HCl 8 mg 03/09/18 16:03 Zofran Injection IVPB Q8H PRN NAUSEA Pantoprazole Sodium 40 mg 03/10/18 10:00 03/16/18 09:08 Protonix - PO 40 mg DAILY JERED Administration Simethicone 80 mg 03/09/18 16:03 Mylicon - PO Q4H PRN GAS ASSESSMENT/PLAN: 57 year old man with history of hypothyroidism, Afib w/ RVR stage 1 colon cancer with Sue procedure performed 02/22 (Dr. Ventura). Patient with urine leak from abdominal site (02/26) found to have L sided ureteral extravasation with L nephrostomy tube placement (02/28). PLAN #Septic Shock possibly 2/2 urine leak -patient has been hypotensive -cx taken again from urosotmy/nephrostmy tube -restarted pt on zosyn -cx negative -monitor hemodynamics #GI Abcess with urine leak and leukocytosis - Blood cultures (02/17) - without growth - Abscess culture (02/20) - lactose fermenting gram neg bacilli, coag pos staph , yeast - possible pus growing from nephrostomy tube - cx sent -restarted on zosyn -cx negative #Ureteral Extravasation with nephrostomy tube placementt. - L nephrostomy tube placed 02/28 - Lentz - monitor urine output from nephrostomy tube -Cr from nephrosotmy tube came back at 30 -pateint was unable to have stent placed; Dr Persaud from [facility] will be seeing patient as he will be likely transferred there for procedure as per Dr. Espinosa but will need a 2 month cool down period and will need a SNF for some time #PE evidence of right heart strain on ECHo -CTA done showing possible PE in right upper lobe and right middle lobe of lung -switched patient to eliquis 5mg BID last night and now patient has bloody urine in nephrostomy tube- placed call out to Dr. Suh -Pulmonary on board #Colon Ca s/p Harrtmanns procedure -patient now has wound vac in place -f/u oncology recs #Hypothyroidism -TSH within normal limits c/w home dose of levothyroxine F/E/N -LR @100mls/hr -monitor electrolytes - soft diet GI ppx - Protonix 40mg daily DVT ppx - eliquis Problem List - Problems (1) Abdominal pain Code(s): R10.9 - UNSPECIFIED ABDOMINAL PAIN Qualifiers: Abdominal location: left lower quadrant Qualified Code(s): R10.32 - Left lower quadrant pain (2) Abnormal colonoscopy Code(s): R93.3 - ABNORMAL FINDINGS ON DX IMAGING OF PRT DIGESTIVE TRACT (3) Afib Code(s): I48.91 - UNSPECIFIED ATRIAL FIBRILLATION (4) Left ureteral injury Code(s): S37.10XA - UNSPECIFIED INJURY OF URETER, INITIAL ENCOUNTER Visit type - Emergency Visit Emergency Visit: Yes ED Registration Date: 02/13/18 Care time: The patient presented to the Emergency Department on the above date and was hospitalized for further evaluation of their emergent condition. - New Patient This patient is new to me today: No - Critical Care Critical Care patient: No
[2018-03-17] MEDS: AMINO ACIDS/PROTEIN HYDROLYS 30 ML LIQUID.PKT PO SCH ×2 (09:42→17:11)
[2018-03-17] MEDS: PANTOPRAZOLE 40 MG TABLET (FP) PO SCH (09:42)
[2018-03-17] MEDS: APIXABAN 5 MG TABLET PO SCH ×2 (09:43→21:23)
--- NOTE | 2018-03-17 12:20 | PN ---
Progress Note, Physician History of Present Illness: PULMONARY ALERT,NO DISTRESS,OOB-CHAIR,-CP,-SOB - Current Medication List Current Medications: Active Medications Acetaminophen (Tylenol -) 650 mg PO Q4H PRN PRN Reason: FEVER Last Admin: 03/15/18 19:03 Dose: 650 mg Amino Acids (Prosource No Carb Liquid Pkt) 30 ml PO BID@0800,1730 [facility] Last Admin: 03/17/18 09:42 Dose: 30 ml Apixaban (Eliquis -) 5 mg PO BID [facility] Last Admin: 03/17/18 09:43 Dose: 5 mg Benzocaine/Menthol (Cepacol Lozenge -) 1 each MM DAILY PRN PRN Reason: SORE THROAT Piperacillin Sod/Tazobactam (Sod 3.375 gm/ Dextrose) 50 mls @ 100 mls/hr IVPB Q8H-IV JERED; Protocol Last Admin: 03/17/18 09:42 Dose: 100 mls/hr Sodium Chloride (Normal Saline -) 1,000 mls @ 125 mls/hr IV ASDIR [facility] Last Admin: 03/16/18 08:10 Dose: 125 mls/hr Levothyroxine Sodium (Synthroid -) 112 mcg PO DAILY@0700 [facility] Last Admin: 03/17/18 06:36 Dose: 112 mcg Ondansetron HCl (Zofran Injection) 8 mg IVPB Q8H PRN PRN Reason: NAUSEA Pantoprazole Sodium (Protonix -) 40 mg PO DAILY [facility] Last Admin: 03/17/18 09:42 Dose: 40 mg Simethicone (Mylicon -) 80 mg PO Q4H PRN PRN Reason: GAS - Objective Vital Signs: Vital Signs Temperature 98 F 03/17/18 09:00 Pulse Rate 75 03/17/18 09:00 Respiratory Rate 20 03/17/18 09:00 Blood Pressure 99/57 L 03/17/18 09:00 O2 Sat by Pulse Oximetry (%) 97 03/17/18 09:00 Constitutional: Yes: Well Nourished, Calm Eyes: Yes: WNL HENT: Yes: WNL Neck: Yes: WNL Cardiovascular: Yes: Regular Rate and Rhythm, S1, S2 Respiratory: Yes: CTA Bilaterally Gastrointestinal: Yes: Normal Bowel Sounds, Soft Extremities: Yes: WNL Edema: No Labs: CBC, BMP 03/17/18 05:30 03/17/18 05:30 INR, PTT INR 1.44 (0.83-1.09) H 03/17/18 05:30 Problem List - Problems (1) DVT (deep venous thrombosis) Code(s): I82.409 - ACUTE EMBOLISM AND THOMBOS UNSP DEEP VN UNSP LOWER EXTREMITY (2) Afib Code(s): I48.91 - UNSPECIFIED ATRIAL FIBRILLATION (3) Anemia Code(s): D64.9 - ANEMIA, UNSPECIFIED (4) Left ureteral injury Code(s): S37.10XA - UNSPECIFIED INJURY OF URETER, INITIAL ENCOUNTER (5) Neoplasm of sigmoid colon Code(s): D49.0 - NEOPLASM OF UNSPECIFIED BEHAVIOR OF DIGESTIVE SYSTEM (6) Pulmonary emboli Code(s): I26.99 - OTHER PULMONARY EMBOLISM WITHOUT ACUTE COR PULMONALE Assessment/Plan ASSESSMENT AND PLAN: Colon CA S/P Sigmoid Colectomy 02/14 Post op Fecal Peritonitis/Perforated Diverticulum S/P ex-lap/abdominal washout/Left Colectomy/End Colostomy Paroxysmal Atrial Fibrillation s/p Acute Hypoxic Respiratory Failure Left Ureteral Leak s/p Nephrostomy placement Intra-abdominal Abscess s/p IR drainage Septic Shock resolved +Troponins likely Demand Ischemia Hypothyroidism DVT/PE LIKELY PROVOKED - incentive spirometry - PO as tolerated - O2 to keep Spo2 >90 - Eliquis - abx as per ID - IVF - MONITOR BP DR FRIEND
--- NOTE | 2018-03-17 14:08 | PN ---
Progress Note, Physician Chief Complaint: abdominal pain and colon mass History of Present Illness: 57 yo male presenting to [facility] ER via private auto complaining of occasional lower left abdominal discomfort. stable post operatively after second laparotomy. Gas and air in the colostomy this morning, We were called to the bedside when the patinet was reporting more abdominal pain. he has been temporized with drainage catheters and rephrostomy but has a left ureteral injury that will require reconstruction. - Current Medication List Current Medications: Active Medications Acetaminophen (Tylenol -) 650 mg PO Q4H PRN PRN Reason: FEVER Last Admin: 03/15/18 19:03 Dose: 650 mg Amino Acids (Prosource No Carb Liquid Pkt) 30 ml PO BID@0800,1730 [facility] Last Admin: 03/17/18 09:42 Dose: 30 ml Apixaban (Eliquis -) 5 mg PO BID [facility] Last Admin: 03/17/18 09:43 Dose: 5 mg Benzocaine/Menthol (Cepacol Lozenge -) 1 each MM DAILY PRN PRN Reason: SORE THROAT Piperacillin Sod/Tazobactam (Sod 3.375 gm/ Dextrose) 50 mls @ 100 mls/hr IVPB Q8H-IV JERED; Protocol Last Admin: 03/17/18 09:42 Dose: 100 mls/hr Sodium Chloride (Normal Saline -) 1,000 mls @ 125 mls/hr IV ASDIR [facility] Last Admin: 03/16/18 08:10 Dose: 125 mls/hr Levothyroxine Sodium (Synthroid -) 112 mcg PO DAILY@0700 [facility] Last Admin: 03/17/18 06:36 Dose: 112 mcg Ondansetron HCl (Zofran Injection) 8 mg IVPB Q8H PRN PRN Reason: NAUSEA Pantoprazole Sodium (Protonix -) 40 mg PO DAILY [facility] Last Admin: 03/17/18 09:42 Dose: 40 mg Simethicone (Mylicon -) 80 mg PO Q4H PRN PRN Reason: GAS - Objective Vital Signs: Vital Signs Temperature 98 F 03/17/18 09:00 Pulse Rate 75 03/17/18 09:00 Respiratory Rate 20 03/17/18 09:00 Blood Pressure 99/57 L 03/17/18 09:00 O2 Sat by Pulse Oximetry (%) 97 03/17/18 09:00 Vital Signs Period Temp Pulse Resp BP Sys/Cavanaugh Pulse Ox Last 24 Hr 97.8 F-98.1 F 62-75 20-20 93-118/56-66 97-97 Constitutional: Yes: Well Nourished, No Distress, Calm Eyes: Yes: Conjunctiva Clear, EOM Intact HENT: Yes: Atraumatic, Normocephalic Neck: Yes: Supple, Trachea Midline Cardiovascular: Yes: Regular Rate and Rhythm, S1, S2 Respiratory: Yes: Regular, CTA Bilaterally Gastrointestinal: Yes: Normal Bowel Sounds, Soft, Other. No: Tenderness ...Rectal Exam: Yes: Deferred Genitourinary: No: CVA Tenderness - Left, CVA Tenderness - Right Musculoskeletal: No: Muscle Pain, Muscle Weakness Extremities: No: Cool, Cyanosis Edema: No Peripheral Pulses WNL: Yes Peripheral Pulses: Left Radial: 2+, Right Radial: 2+, Left Doralis Pedis: 2+, Right Dorsalis Pedis: 2+, Left Femoral: 2+, Right Femoral: 2+ Wound/Incision: Yes: Clean/Dry, Unapproximated, Other (VAC) Neurological: Yes: Alert, Oriented Psychiatric: Yes: Alert, Oriented Labs: CBC, BMP // 05:30 12/ 05:30 INR, PTT INR 1.44 (0.83-1.09) H 12/ 05:30 Problem List - Problems (1) Neoplasm of sigmoid colon Assessment/Plan: POD#26 s/p sigmoid colectomy and primary anastomosis (due to sigmoid colon cancer) POD#19 s/p completion left colectomy and amado's (due to perforated diverticulum distal to anatomosis) POD#4 s/p cystoscopy by urology showed likely left ureteral transection. He will require follow up at [facility] ( tertiary care) Dr. Cristian Kennedy MD, urologic oncology and Gerry Meeks MD, colorectal surgery for reimplantation or uteral reconstruction over stent and colostomy reversal. I had family discussion with daughter and all parties are in agreement with the plan. During his 2 month wait until revision surgery he will follow up weekly at [facility] in wound care center for wound vac management. optimize nutrition IVF hydration order VAC freedom, VAC change due 03/18 encourage IS will follow Discharge with abdominal drain, neprostomy, colostomy, and VAC with a plan to reconstruct in 2 months at [facility] Code(s): D49.0 - NEOPLASM OF UNSPECIFIED BEHAVIOR OF DIGESTIVE SYSTEM (2) Sigmoid thickening Code(s): K63.9 - DISEASE OF INTESTINE, UNSPECIFIED (3) Abdominal pain Code(s): R10.9 - UNSPECIFIED ABDOMINAL PAIN Qualifiers: Abdominal location: left lower quadrant Qualified Code(s): R10.32 - Left lower quadrant pain (4) Abnormal colonoscopy Code(s): R93.3 - ABNORMAL FINDINGS ON DX IMAGING OF PRT DIGESTIVE TRACT
--- NOTE | 2018-03-17 14:50 | PN ---
Progress Note, Physician History of Present Illness: stable now no new issues feeling better - Current Medication List Current Medications: Active Medications Acetaminophen (Tylenol -) 650 mg PO Q4H PRN PRN Reason: FEVER Last Admin: 03/15/18 19:03 Dose: 650 mg Amino Acids (Prosource No Carb Liquid Pkt) 30 ml PO BID@0800,1730 [facility] Last Admin: 03/17/18 09:42 Dose: 30 ml Apixaban (Eliquis -) 5 mg PO BID [facility] Last Admin: 03/17/18 09:43 Dose: 5 mg Benzocaine/Menthol (Cepacol Lozenge -) 1 each MM DAILY PRN PRN Reason: SORE THROAT Piperacillin Sod/Tazobactam (Sod 3.375 gm/ Dextrose) 50 mls @ 100 mls/hr IVPB Q8H-IV JERED; Protocol Last Admin: 03/17/18 09:42 Dose: 100 mls/hr Sodium Chloride (Normal Saline -) 1,000 mls @ 125 mls/hr IV ASDIR [facility] Last Admin: 03/16/18 08:10 Dose: 125 mls/hr Levothyroxine Sodium (Synthroid -) 112 mcg PO DAILY@0700 [facility] Last Admin: 03/17/18 06:36 Dose: 112 mcg Ondansetron HCl (Zofran Injection) 8 mg IVPB Q8H PRN PRN Reason: NAUSEA Pantoprazole Sodium (Protonix -) 40 mg PO DAILY [facility] Last Admin: 03/17/18 09:42 Dose: 40 mg Simethicone (Mylicon -) 80 mg PO Q4H PRN PRN Reason: GAS - Objective Vital Signs: Vital Signs Temperature 98 F 03/17/18 09:00 Pulse Rate 75 03/17/18 09:00 Respiratory Rate 20 03/17/18 09:00 Blood Pressure 99/57 L 03/17/18 09:00 O2 Sat by Pulse Oximetry (%) 97 03/17/18 09:00 Constitutional: Yes: No Distress, Calm Cardiovascular: Yes: Regular Rate and Rhythm Respiratory: Yes: Regular, CTA Bilaterally Gastrointestinal: Yes: Normal Bowel Sounds, Soft Genitourinary: Yes: Other Musculoskeletal: Yes: WNL Extremities: Yes: WNL Neurological: Yes: Alert, Oriented Psychiatric: Yes: Alert, Oriented Labs: CBC, BMP 03/17/18 05:30 03/17/18 05:30 INR, PTT INR 1.44 (0.83-1.09) H 03/17/18 05:30 Assessment/Plan Problem List - Problems (1) Neoplasm of sigmoid colon Code(s): D49.0 - NEOPLASM OF UNSPECIFIED BEHAVIOR OF DIGESTIVE SYSTEM (2) Sigmoid thickening Code(s): K63.9 - DISEASE OF INTESTINE, UNSPECIFIED (3) Abdominal pain Code(s): R10.9 - UNSPECIFIED ABDOMINAL PAIN Qualifiers: Abdominal location: left lower quadrant Qualified Code(s): R10.32 - Left lower quadrant pain (4) Abnormal colonoscopy Code(s): R93.3 - ABNORMAL FINDINGS ON DX IMAGING OF PRT DIGESTIVE TRACT fever abd distension DVT ? pe ureteral tear left s/p ext nephrostomy plan n abx await for cx reports might need change of the nephrostomy tube rest as per the team
--- NOTE | 2018-03-17 16:54 | PN ---
Teaching Attending Note Name of Resident: Betty Cardoza ATTENDING PHYSICIAN STATEMENT I saw and evaluated the patient. I reviewed the resident's note and discussed the case with the resident. I agree with the resident's findings and plan as documented. SUBJECTIVE: Feeling better - no abdominal pain/nausea/vomiting. No fever/chills. OBJECTIVE: Afebrile. BP borderline this am at 95/58. Last Vital Signs Temp Pulse Resp BP Pulse Ox 98.1 F 72 20 94/64 97 03/17/18 14:00 03/17/18 14:00 03/17/18 09:00 03/17/18 14:00 03/17/18 09:00 HEENT - Atraumatic, Normocephalic Heart - S1, S2, RRR Lungs - clear to auscultation - no crackles/wheeze. Abdomen - midline laparotomy wound with wound vac in place. R colostomy with soft stool. R urostomy - bloody fluid in bag. R nephrostomy serosanguinous fluid. Soft. Bowel sounds present. Neuro - AAO x 3. Tone/Power normal all 4 extremities. ASSESSMENT AND PLAN: 57 year old man with a history of hypothyroidism who presented with abdominal pain. He is POD 26 s/p Sigmoid Colectomy with Primary anastamosis for colon Ca with subsequent completion of left colectomy and Sue's due to perforated diverticulum distal to anastamosis (POD 19), complicated by ureteral injury/ transection, now with Urostomy and Nephrostomy. 1. Adenocarcinoma of colon s/p sigmoid colectomy with primary anastomosis 02/14 with subsequent Perforated diverticulum distal to anastomosis with peritonitis s/p exploratory laparotomy, abdominal wash out, completion of left colectomy, Sue's 02/21. Wound Care ongoing with wound vac. Oral intake improving with functioning Colostomy. 3. Probable transection of left ureter s/p left percutaneous nephrostomy by IR Concern for purulent fluid in Urostomy drain s/p drainage of uroma by IR 03/01. Cultures of Urostomy and Nephrostomy 03/15 both returned negative. On Empiric Zosyn - further recommendations by IR. Will need follow up on [facility] for reimplantation/reconstruction and colostomy reversal in 2 months (Dr. Cristian Kennedy MD, urologic oncology and Gerry Meeks MD, colorectal surgery) 4. Septic shock secondary to peritonitis - resolved. 5. LLE DVT and PE - Provoked - Continue Eliquis x 6 months with hematology follow up 6. Paroxysmal atrial fib/Troponin egression sec to demand ischemia - developed due to stress of surgery and complications - started on Eliquis 7. Acute hypoxic respiratory failure secondary to sepsis - resolved. 8. Hypothyroidism - Continue Synthroid. Dispo - PT eval for possible SNF given multiple drains/wound vac and colostomy care.
[2018-03-17] MEDS: SODIUM CHLORIDE 1,000 ML IV SCH (17:12)
[2018-03-18] MEDS ORDERED: DEXTROSE 5%-WATER - 50 ML IVPB ONE ×2 (02:08→02:17)
[2018-03-18] MEDS ORDERED: PIPERACILLIN/TAZOBACTAM 3.375 GM VIAL IVPB ONE ×2 (02:08→02:17)
[2018-03-18] MEDS: SODIUM CHLORIDE 1,000 ML IV SCH ×2 (02:18→07:30)
[2018-03-18] MEDS: PIPERACILLIN/TAZOB 3.375 GM 3.375 GM in DEXTROSE 5%-WATER - 50 ML IVPB SCH ×2 (02:20→09:26)
[2018-03-18] MEDS: LEVOTHYROXINE NA 112 MCG TABLET (FP) PO SCH (06:44)
[2018-03-18] MEDS: AMINO ACIDS/PROTEIN HYDROLYS 30 ML LIQUID.PKT PO SCH ×2 (07:42→16:57)
[2018-03-18 08:01] LABS: HEMATOCRIT 31.1 % (35.4-49); HEMOGLOBIN 9.8 GM/dL (11.7-16.9); MCH 26.6 pg (25.7-33.7); MCHC 31.6 g/dl (32.0-35.9); MEAN CELL VOLUME 84.2 fl (80-96); MEAN PLT VOLUME 6.6 fl (7.5-11.1); PLATELET COUNT 375 K/MM3 (134-434); RBC 3.69 M/mm3 (4.00-5.60); RDW 19.9 % (11.9-15.9); WHITE BLOOD COUNT 5.6 K/mm3 (4.0-10.0)
[2018-03-18 08:41] LABS: ANION GAP 6 MMOL/L (8-16); BLOOD UREA NITROGEN 6 mg/dL (7-18); CALCIUM 8.1 mg/dL (8.5-10.1); CHLORIDE 105 mmol/L (98-107); CO2 29 mmol/L (21-32); CREATININE 0.5 mg/dL (0.55-1.3); GLUCOSE,RANDOM 82 mg/dL (74-106); PHOSPHOROUS 4.1 mg/dL (2.5-4.9); POTASSIUM 4.4 mmol/L (3.5-5.1); SODIUM 140 mmol/L (136-145)
--- NOTE | 2018-03-18 08:59 | PN ---
Progress Note, Physician History of Present Illness: pulmonary alert,no distress,-sob,-cp,-abd pain - Current Medication List Current Medications: Active Medications Acetaminophen (Tylenol -) 650 mg PO Q4H PRN PRN Reason: FEVER Last Admin: 03/15/18 19:03 Dose: 650 mg Amino Acids (Prosource No Carb Liquid Pkt) 30 ml PO BID@0800,1730 [facility] Last Admin: 03/18/18 07:42 Dose: 30 ml Apixaban (Eliquis -) 5 mg PO BID [facility] Last Admin: 03/17/18 21:23 Dose: 5 mg Benzocaine/Menthol (Cepacol Lozenge -) 1 each MM DAILY PRN PRN Reason: SORE THROAT Piperacillin Sod/Tazobactam (Sod 3.375 gm/ Dextrose) 50 mls @ 100 mls/hr IVPB Q8H-IV JERED; Protocol Last Admin: 03/18/18 02:20 Dose: 100 mls/hr Sodium Chloride (Normal Saline -) 1,000 mls @ 125 mls/hr IV ASDIR [facility] Last Admin: 03/18/18 02:18 Dose: 125 mls/hr Levothyroxine Sodium (Synthroid -) 112 mcg PO DAILY@0700 [facility] Last Admin: 03/18/18 06:44 Dose: 112 mcg Ondansetron HCl (Zofran Injection) 8 mg IVPB Q8H PRN PRN Reason: NAUSEA Pantoprazole Sodium (Protonix -) 40 mg PO DAILY [facility] Last Admin: 03/17/18 09:42 Dose: 40 mg Simethicone (Mylicon -) 80 mg PO Q4H PRN PRN Reason: GAS - Objective Vital Signs: Vital Signs Temperature 98.6 F 03/18/18 05:00 Pulse Rate 61 03/18/18 05:00 Respiratory Rate 20 03/18/18 05:00 Blood Pressure 111/58 L 03/18/18 05:00 O2 Sat by Pulse Oximetry (%) 97 03/17/18 21:00 Constitutional: Yes: Well Nourished, Calm Eyes: Yes: WNL HENT: Yes: WNL Neck: Yes: WNL Cardiovascular: Yes: Regular Rate and Rhythm, S1, S2 Respiratory: Yes: CTA Bilaterally Gastrointestinal: Yes: Normal Bowel Sounds, Soft Extremities: Yes: WNL Edema: No Labs: CBC, BMP 03/18/18 06:00 03/18/18 06:00 INR, PTT INR 1.44 (0.83-1.09) H 03/17/18 05:30 Problem List - Problems (1) DVT (deep venous thrombosis) Code(s): I82.409 - ACUTE EMBOLISM AND THOMBOS UNSP DEEP VN UNSP LOWER EXTREMITY (2) Afib Code(s): I48.91 - UNSPECIFIED ATRIAL FIBRILLATION (3) Anemia Code(s): D64.9 - ANEMIA, UNSPECIFIED (4) Left ureteral injury Code(s): S37.10XA - UNSPECIFIED INJURY OF URETER, INITIAL ENCOUNTER (5) Neoplasm of sigmoid colon Code(s): D49.0 - NEOPLASM OF UNSPECIFIED BEHAVIOR OF DIGESTIVE SYSTEM (6) Pulmonary emboli Code(s): I26.99 - OTHER PULMONARY EMBOLISM WITHOUT ACUTE COR PULMONALE Assessment/Plan ASSESSMENT AND PLAN: Colon CA S/P Sigmoid Colectomy 02/14 Post op Fecal Peritonitis/Perforated Diverticulum S/P ex-lap/abdominal washout/Left Colectomy/End Colostomy Paroxysmal Atrial Fibrillation s/p Acute Hypoxic Respiratory Failure Left Ureteral Leak s/p Nephrostomy placement Intra-abdominal Abscess s/p IR drainage Septic Shock resolved +Troponins likely Demand Ischemia Hypothyroidism DVT/PE LIKELY PROVOKED - incentive spirometry - PO as tolerated - O2 to keep Spo2 >90 - Eliquis - abx as per ID - IVF - MONITOR BP DR FRIEND
[2018-03-18] MEDS: PANTOPRAZOLE 40 MG TABLET (FP) PO SCH (09:27)
[2018-03-18] MEDS: APIXABAN 5 MG TABLET PO SCH ×2 (09:27→21:28)
--- NOTE | 2018-03-18 12:15 | PN ---
Progress Note, Physician Chief Complaint: abdominal pain and colon mass History of Present Illness: 57 yo male presenting to [facility] ER via private auto complaining of occasional lower left abdominal discomfort. stable post operatively after second laparotomy. Gas and air in the colostomy this morning, We were called to the bedside when the patinet was reporting more abdominal pain. he has been temporized with drainage catheters and rephrostomy but has a left ureteral injury that will require reconstruction. - Current Medication List Current Medications: Active Medications Acetaminophen (Tylenol -) 650 mg PO Q4H PRN PRN Reason: FEVER Last Admin: 03/15/18 19:03 Dose: 650 mg Amino Acids (Prosource No Carb Liquid Pkt) 30 ml PO BID@0800,1730 [facility] Last Admin: 03/18/18 07:42 Dose: 30 ml Apixaban (Eliquis -) 5 mg PO BID [facility] Last Admin: 03/18/18 09:27 Dose: 5 mg Benzocaine/Menthol (Cepacol Lozenge -) 1 each MM DAILY PRN PRN Reason: SORE THROAT Piperacillin Sod/Tazobactam (Sod 3.375 gm/ Dextrose) 50 mls @ 100 mls/hr IVPB Q8H-IV JERED; Protocol Last Admin: 03/18/18 09:26 Dose: 100 mls/hr Sodium Chloride (Normal Saline -) 1,000 mls @ 125 mls/hr IV ASDIR [facility] Last Admin: 03/18/18 07:30 Dose: 125 mls/hr Levothyroxine Sodium (Synthroid -) 112 mcg PO DAILY@0700 [facility] Last Admin: 03/18/18 06:44 Dose: 112 mcg Ondansetron HCl (Zofran Injection) 8 mg IVPB Q8H PRN PRN Reason: NAUSEA Pantoprazole Sodium (Protonix -) 40 mg PO DAILY [facility] Last Admin: 03/18/18 09:27 Dose: 40 mg Simethicone (Mylicon -) 80 mg PO Q4H PRN PRN Reason: GAS - Objective Vital Signs: Vital Signs Temperature 98.4 F 03/18/18 09:00 Pulse Rate 71 03/18/18 09:00 Respiratory Rate 20 03/18/18 09:00 Blood Pressure 98/59 L 03/18/18 09:00 O2 Sat by Pulse Oximetry (%) 96 03/18/18 09:00 Vital Signs Period Temp Pulse Resp BP Sys/Cavanaugh Pulse Ox Last 24 Hr 98.1 F-98.7 F 58-80 17-18 106-120/60-83 97 Intake & Output 18 18 03/22/18 23:59 07:59 15:59 Intake Total 1200 Output Total 250 1560 Balance -250 -360 Weight 158 lb 1 oz 162 lb Intake: IV 1200 Normal Saline - 1,000 ml 1200 @ 100 mls/hr IV ASDIR [facility] Rx#:[id number] Output: Drainage 60 Left Lateral Abdomen 60 Urine 250 1500 Left Nephrostomy 250 900 Void 600 Other: Voiding Method Urinal Body Mass Index (BMI) 28.1 Weight Measurement Method [facility] Constitutional: Yes: Well Nourished, No Distress, Calm Eyes: Yes: Conjunctiva Clear, EOM Intact HENT: Yes: Atraumatic, Normocephalic Neck: Yes: Supple, Trachea Midline Cardiovascular: Yes: Regular Rate and Rhythm, S1, S2 Respiratory: Yes: Regular, CTA Bilaterally Gastrointestinal: Yes: Normal Bowel Sounds, Soft. No: Tenderness ...Rectal Exam: Yes: Deferred Genitourinary: No: CVA Tenderness - Left, CVA Tenderness - Right Extremities: No: Cool, Cyanosis Edema: No Peripheral Pulses WNL: Yes Wound/Incision: Yes: Clean/Dry, Unapproximated, Other (VAC dressig) Neurological: Yes: Alert, Oriented Psychiatric: Yes: Alert, Oriented Labs: CBC, BMP 03/18/18 06:00 03/18/18 06:00 INR, PTT INR 1.44 (0.83-1.09) H 12/ 05:30 Problem List - Problems (1) Neoplasm of sigmoid colon Assessment/Plan: POD#26 s/p sigmoid colectomy and primary anastomosis (due to sigmoid colon cancer) POD#19 s/p completion left colectomy and amado's (due to perforated diverticulum distal to anatomosis) POD#4 s/p cystoscopy by urology showed likely left ureteral transection. He will require follow up at [facility] ( tertiary care) Dr. Cristian Kennedy MD, urologic oncology and Gerry Meeks MD, colorectal surgery for reimplantation or uteral reconstruction over stent and colostomy reversal. I had family discussion with daughter and all parties are in agreement with the plan. During his 2 month wait until revision surgery he will follow up weekly at [facility] in wound care center for wound vac management. optimize nutrition IVF hydration order VAC freedom, VAC change due 03/18 encourage IS will follow Discharge with abdominal drain, neprostomy, colostomy, and VAC with a plan to reconstruct in 2 months at [facility] Code(s): D49.0 - NEOPLASM OF UNSPECIFIED BEHAVIOR OF DIGESTIVE SYSTEM (2) Sigmoid thickening Code(s): K63.9 - DISEASE OF INTESTINE, UNSPECIFIED (3) Abdominal pain Code(s): R10.9 - UNSPECIFIED ABDOMINAL PAIN Qualifiers: Abdominal location: left lower quadrant Qualified Code(s): R10.32 - Left lower quadrant pain (4) Abnormal colonoscopy Code(s): R93.3 - ABNORMAL FINDINGS ON DX IMAGING OF PRT DIGESTIVE TRACT
--- NOTE | 2018-03-18 14:57 | PN ---
Progress Note, Physician History of Present Illness: stable now no new issues feeling better - Current Medication List Current Medications: Active Medications Acetaminophen (Tylenol -) 650 mg PO Q4H PRN PRN Reason: FEVER Last Admin: 03/15/18 19:03 Dose: 650 mg Amino Acids (Prosource No Carb Liquid Pkt) 30 ml PO BID@0800,1730 [facility] Last Admin: 03/18/18 07:42 Dose: 30 ml Apixaban (Eliquis -) 5 mg PO BID [facility] Last Admin: 03/18/18 09:27 Dose: 5 mg Benzocaine/Menthol (Cepacol Lozenge -) 1 each MM DAILY PRN PRN Reason: SORE THROAT Piperacillin Sod/Tazobactam (Sod 3.375 gm/ Dextrose) 50 mls @ 100 mls/hr IVPB Q8H-IV JERED; Protocol Last Admin: 03/18/18 09:26 Dose: 100 mls/hr Sodium Chloride (Normal Saline -) 1,000 mls @ 125 mls/hr IV ASDIR [facility] Last Admin: 03/18/18 07:30 Dose: 125 mls/hr Levothyroxine Sodium (Synthroid -) 112 mcg PO DAILY@0700 [facility] Last Admin: 03/18/18 06:44 Dose: 112 mcg Ondansetron HCl (Zofran Injection) 8 mg IVPB Q8H PRN PRN Reason: NAUSEA Pantoprazole Sodium (Protonix -) 40 mg PO DAILY [facility] Last Admin: 03/18/18 09:27 Dose: 40 mg Simethicone (Mylicon -) 80 mg PO Q4H PRN PRN Reason: GAS - Objective Vital Signs: Vital Signs Temperature 97.8 F 03/18/18 14:00 Pulse Rate 70 03/18/18 14:00 Respiratory Rate 20 03/18/18 14:00 Blood Pressure 98/59 L 03/18/18 14:00 O2 Sat by Pulse Oximetry (%) 96 03/18/18 09:00 Constitutional: Yes: No Distress, Calm Cardiovascular: Yes: Regular Rate and Rhythm Respiratory: Yes: Regular, CTA Bilaterally Gastrointestinal: Yes: Normal Bowel Sounds, Soft Genitourinary: Yes: Other (tubes present) Musculoskeletal: Yes: WNL Extremities: Yes: WNL Neurological: Yes: Alert, Oriented Psychiatric: Yes: Alert, Oriented Labs: CBC, BMP 12/15/18 06:00 03/18/18 06:00 INR, PTT INR 1.44 (0.83-1.09) H 03/17/18 05:30 Assessment/Plan Problem List - Problems (1) Neoplasm of sigmoid colon Code(s): D49.0 - NEOPLASM OF UNSPECIFIED BEHAVIOR OF DIGESTIVE SYSTEM (2) Sigmoid thickening Code(s): K63.9 - DISEASE OF INTESTINE, UNSPECIFIED (3) Abdominal pain Code(s): R10.9 - UNSPECIFIED ABDOMINAL PAIN Qualifiers: Abdominal location: left lower quadrant Qualified Code(s): R10.32 - Left lower quadrant pain (4) Abnormal colonoscopy Code(s): R93.3 - ABNORMAL FINDINGS ON DX IMAGING OF PRT DIGESTIVE TRACT fever abd distension DVT ? pe ureteral tear left s/p ext nephrostomy plan abx cx results noted still might need change of the tube rest as per the team
[2018-03-18] MEDS: ACETAMINOPHEN 325 MG TABLET (FP) PO PRN (16:25)
--- NOTE | 2018-03-18 17:33 | PN ---
Progress Note (short form) - Note Progress Note: 57 year old man with a history of hypothyroidism who presented with abdominal pain. He is POD 27 s/p Sigmoid Colectomy with Primary anastamosis for colon Ca with subsequent completion of left colectomy and Sue's due to perforated diverticulum distal to anastamosis (POD 20), complicated by ureteral injury/ transection, now with Urostomy and Nephrostomy. Feeling well - no complaints. No abdominal pain. No fever/chills. PHYSICAL EXAMINATION Afebrile/Hemodynamically Stable. Last Vital Signs Temp Pulse Resp BP Pulse Ox 97.8 F 70 20 98/59 L 96 03/18/18 14:00 03/18/18 14:00 03/18/18 14:00 03/18/18 14:00 03/18/18 09:00 HEENT- Atraumatic/Normocephalic Lungs - clear to auscultation Abdomen - midline laparotomy insiion with wound vac, colostomy with soft stool, Left Nephrostomy and Urostomy - all sites clean. Non-tender abdomen. Normal bowel Sounds. Heart - S1, S2 Extremities -no edema. No calf tenderness. Laboratory Results - last 24 hr 03/18/18 03/18/18 06:00 06:00 WBC 5.6 RBC 3.69 L Hgb 9.8 L Hct 31.1 L MCV 84.2 MCH 26.6 MCHC 31.6 L RDW 19.9 H Plt Count 375 MPV 6.6 L Sodium 140 Potassium 4.4 Chloride 105 Carbon Dioxide 29 Anion Gap 6 L BUN 6 L Creatinine 0.5 L Creat Clearance w eGFR > 60 Random Glucose 82 Calcium 8.1 L Phosphorus 4.1 Magnesium 2.0 Current Medications Generic Name Dose Route Start Last Admin Trade Name Freq PRN Reason Stop Dose Admin Acetaminophen 650 mg 03/09/18 16:03 03/18/18 16:25 Tylenol - PO 650 mg Q4H PRN Administration FEVER Amino Acids 30 ml 03/09/18 17:30 03/18/18 16:57 Prosource No Carb Liquid Pkt PO 30 ml BID@0800,1730 JERED Administration Apixaban 5 mg 03/15/18 22:00 03/18/18 09:27 Eliquis - PO 5 mg BID JERED Administration Benzocaine/Menthol 1 each 03/09/18 16:03 Cepacol Lozenge - MM DAILY PRN SORE THROAT Sodium Chloride 1,000 mls @ 125 mls/hr 03/16/18 07:19 03/18/18 07:30 Normal Saline - IV 125 mls/hr ASDIR JERED Administration Levothyroxine Sodium 112 mcg 03/10/18 07:00 03/18/18 06:44 Synthroid - PO 112 mcg DAILY@0700 JERED Administration Ondansetron HCl 8 mg 03/09/18 16:03 Zofran Injection IVPB Q8H PRN NAUSEA Pantoprazole Sodium 40 mg 03/10/18 10:00 03/18/18 09:27 Protonix - PO 40 mg DAILY JERED Administration Simethicone 80 mg 03/09/18 16:03 Mylicon - PO Q4H PRN GAS ASSESSMENT/PLAN 57 year old man with a history of hypothyroidism who presented with abdominal pain. He is POD 27 s/p Sigmoid Colectomy with Primary anastamosis for colon Ca with subsequent completion of left colectomy and Sue's due to perforated diverticulum distal to anastamosis (POD 20), complicated by ureteral injury/ transection, now with Urostomy and Nephrostomy. 1. Adenocarcinoma of colon s/p sigmoid colectomy with primary anastomosis 02/14 with subsequent Perforated diverticulum distal to anastomosis with peritonitis s/p exploratory laparotomy, abdominal wash out, completion of left colectomy, Sue's 02/21. Wound Care of surgical incision ongoing with wound vac. Oral intake adequate with functioning Colostomy. 3. Probable transection of left ureter s/p left percutaneous nephrostomy by IR Concern for purulent fluid in Urostomy drain s/p drainage of uroma by IR 03/01. Cultures of Urostomy and Nephrostomy 03/15 both returned negative. On Empiric Zosyn - further recommendations by ID. Will need follow up on [facility] for reimplantation/reconstruction and colostomy reversal in 2 months (Dr. Cristian Kennedy MD, urologic oncology and Gerry Meeks MD, colorectal surgery) 4. Septic shock secondary to peritonitis - resolved. 5. LLE DVT and PE - Provoked - Continue Eliquis x 6 months with hematology follow up 6. Paroxysmal atrial fib/Troponin egression sec to demand ischemia - developed due to stress of surgery and complications - started on Eliquis 7. Acute hypoxic respiratory failure secondary to sepsis - resolved. 8. Hypothyroidism - Continue Synthroid. Dispo - PT eval for possible SNF given multiple drains/wound vac and colostomy care. DVT Px - on Eliquis GI Px - on Protonix Visit type - Emergency Visit Emergency Visit: Yes ED Registration Date: 02/13/18 Care time: The patient presented to the Emergency Department on the above date and was hospitalized for further evaluation of their emergent condition. - New Patient This patient is new to me today: No - Critical Care Critical Care patient: No - Discharge Referral Referred to [facility] Med [facility].: No
[2018-03-19] MEDS: LEVOTHYROXINE NA 112 MCG TABLET (FP) PO SCH (06:11)
[2018-03-19 07:33] LABS: HEMATOCRIT 32.2 % (35.4-49); HEMOGLOBIN 10.3 GM/dL (11.7-16.9); MCH 26.7 pg (25.7-33.7); MCHC 31.9 g/dl (32.0-35.9); MEAN CELL VOLUME 83.7 fl (80-96); MEAN PLT VOLUME 6.4 fl (7.5-11.1); PLATELET COUNT 386 K/MM3 (134-434); RBC 3.84 M/mm3 (4.00-5.60); RDW 19.8 % (11.9-15.9); WHITE BLOOD COUNT 5.8 K/mm3 (4.0-10.0)
[2018-03-19] MEDS: AMINO ACIDS/PROTEIN HYDROLYS 30 ML LIQUID.PKT PO SCH ×2 (07:46→17:05)
[2018-03-19 08:10] LABS: ANION GAP 6 MMOL/L (8-16); BLOOD UREA NITROGEN 7 mg/dL (7-18); CALCIUM 8.2 mg/dL (8.5-10.1); CHLORIDE 103 mmol/L (98-107); CO2 29 mmol/L (21-32); CREATININE 0.5 mg/dL (0.55-1.3); GLUCOSE,RANDOM 89 mg/dL (74-106); SODIUM 138 mmol/L (136-145)
[2018-03-19] MEDS: APIXABAN 5 MG TABLET PO SCH ×2 (09:25→21:07)
[2018-03-19] MEDS: PANTOPRAZOLE 40 MG TABLET (FP) PO SCH (09:25)
--- NOTE | 2018-03-19 09:46 | PN ---
Physical Exam: SUBJECTIVE: Patient seen and examined OBJECTIVE: Vital Signs Period Temp Pulse Resp BP Sys/Cavanaugh Pulse Ox Last 24 Hr 97.8 F-98.5 F 64-70 17-20 98-108/59-63 96-99 GENERAL: The patient is awake, alert, and fully oriented, in no acute distress. HEAD: Normal with no signs of trauma. EYES: PERRL, extraocular movements intact, sclera anicteric, conjunctiva clear. No ptosis. ENT: Ears normal, nares patent, oropharynx clear without exudates, moist mucous membranes. NECK: Trachea midline, full range of motion, supple. LUNGS: Breath sounds equal, clear to auscultation bilaterally, no wheezes, no crackles, no accessory muscle use. HEART: Regular rate and rhythm, S1, S2 without murmur, rub or gallop. ABDOMEN: Soft, nontender, nondistended, normoactive bowel sounds, no guarding, no rebound, no hepatosplenomegaly, no masses. EXTREMITIES: 2+ pulses, warm, well-perfused, no edema. NEUROLOGICAL: Cranial nerves II through XII grossly intact. Normal speech, gait not observed. PSYCH: Normal mood, normal affect. SKIN: Warm, dry, normal turgor, no rashes or lesions noted Laboratory Results - last 24 hr 03/19/18 03/19/18 06:00 06:00 WBC 5.8 RBC 3.84 L Hgb 10.3 L Hct 32.2 L MCV 83.7 MCH 26.7 MCHC 31.9 L RDW 19.8 H Plt Count 386 MPV 6.4 L Sodium 138 Potassium 4.0 Chloride 103 Carbon Dioxide 29 Anion Gap 6 L BUN 7 Creatinine 0.5 L Creat Clearance w eGFR > 60 Random Glucose 89 Calcium 8.2 L Active Medications Generic Name Dose Route Start Last Admin Trade Name Freq PRN Reason Stop Dose Admin Acetaminophen 650 mg 03/09/18 16:03 03/18/18 16:25 Tylenol - PO 650 mg Q4H PRN Administration FEVER Amino Acids 30 ml 03/09/18 17:30 03/19/18 07:46 Prosource No Carb Liquid Pkt PO 30 ml BID@0800,1730 JERED Administration Apixaban 5 mg 03/15/18 22:00 03/19/18 09:25 Eliquis - PO 5 mg BID JERED Administration Benzocaine/Menthol 1 each 03/09/18 16:03 Cepacol Lozenge - MM DAILY PRN SORE THROAT Sodium Chloride 1,000 mls @ 125 mls/hr 03/16/18 07:19 03/18/18 07:30 Normal Saline - IV 125 mls/hr ASDIR EJRED Administration Levothyroxine Sodium 112 mcg 03/10/18 07:00 03/19/18 06:11 Synthroid - PO 112 mcg DAILY@0700 JERED Administration Ondansetron HCl 8 mg 03/09/18 16:03 Zofran Injection IVPB Q8H PRN NAUSEA Pantoprazole Sodium 40 mg 03/10/18 10:00 03/19/18 09:25 Protonix - PO 40 mg DAILY JERED Administration Simethicone 80 mg 03/09/18 16:03 Mylicon - PO Q4H PRN GAS CBC, BMP 03/19/18 06:00 03/19/18 06:00 ASSESSMENT/PLAN:
--- NOTE | 2018-03-19 13:18 | PN ---
Progress Note, Physician - Current Medication List Current Medications: Active Medications Acetaminophen (Tylenol -) 650 mg PO Q4H PRN PRN Reason: FEVER Last Admin: 03/18/18 16:25 Dose: 650 mg Amino Acids (Prosource No Carb Liquid Pkt) 30 ml PO BID@0800,1730 [facility] Last Admin: 03/19/18 07:46 Dose: 30 ml Apixaban (Eliquis -) 5 mg PO BID [facility] Last Admin: 03/19/18 09:25 Dose: 5 mg Benzocaine/Menthol (Cepacol Lozenge -) 1 each MM DAILY PRN PRN Reason: SORE THROAT Sodium Chloride (Normal Saline -) 1,000 mls @ 125 mls/hr IV ASDIR [facility] Last Admin: 03/18/18 07:30 Dose: 125 mls/hr Levothyroxine Sodium (Synthroid -) 112 mcg PO DAILY@0700 [facility] Last Admin: 03/19/18 06:11 Dose: 112 mcg Ondansetron HCl (Zofran Injection) 8 mg IVPB Q8H PRN PRN Reason: NAUSEA Pantoprazole Sodium (Protonix -) 40 mg PO DAILY [facility] Last Admin: 03/19/18 09:25 Dose: 40 mg Simethicone (Mylicon -) 80 mg PO Q4H PRN PRN Reason: GAS - Objective Vital Signs: Vital Signs Temperature 98.5 F 03/19/18 06:00 Pulse Rate 70 03/19/18 06:00 Respiratory Rate 18 03/19/18 06:00 Blood Pressure 98/63 03/19/18 06:00 O2 Sat by Pulse Oximetry (%) 99 03/19/18 08:54 Labs: CBC, BMP 03/19/18 06:00 03/19/18 06:00 INR, PTT INR 1.44 (0.83-1.09) H 03/17/18 05:30 Problem List - Problems (1) DVT (deep venous thrombosis) Code(s): I82.409 - ACUTE EMBOLISM AND THOMBOS UNSP DEEP VN UNSP LOWER EXTREMITY (2) Afib Code(s): I48.91 - UNSPECIFIED ATRIAL FIBRILLATION (3) Anemia Code(s): D64.9 - ANEMIA, UNSPECIFIED (4) Left ureteral injury Code(s): S37.10XA - UNSPECIFIED INJURY OF URETER, INITIAL ENCOUNTER (5) Neoplasm of sigmoid colon Code(s): D49.0 - NEOPLASM OF UNSPECIFIED BEHAVIOR OF DIGESTIVE SYSTEM (6) Pulmonary emboli Code(s): I26.99 - OTHER PULMONARY EMBOLISM WITHOUT ACUTE COR PULMONALE Assessment/Plan ASSESSMENT AND PLAN: Colon CA S/P Sigmoid Colectomy 02/14 Post op Fecal Peritonitis/Perforated Diverticulum S/P ex-lap/abdominal washout/Left Colectomy/End Colostomy Paroxysmal Atrial Fibrillation s/p Acute Hypoxic Respiratory Failure Left Ureteral Leak s/p Nephrostomy placement Intra-abdominal Abscess s/p IR drainage Septic Shock resolved +Troponins likely Demand Ischemia Hypothyroidism DVT/PE LIKELY PROVOKED - incentive spirometry - PO as tolerated - O2 to keep Spo2 >90 - Eliquis - abx as per ID - IVF - MONITOR BP DR FRIEND
--- NOTE | 2018-03-19 13:25 | PN ---
Progress Note, Physician History of Present Illness: stable will stop abx - Current Medication List Current Medications: Active Medications Acetaminophen (Tylenol -) 650 mg PO Q4H PRN PRN Reason: FEVER Last Admin: 03/18/18 16:25 Dose: 650 mg Amino Acids (Prosource No Carb Liquid Pkt) 30 ml PO BID@0800,1730 [facility] Last Admin: 03/19/18 07:46 Dose: 30 ml Apixaban (Eliquis -) 5 mg PO BID [facility] Last Admin: 03/19/18 09:25 Dose: 5 mg Benzocaine/Menthol (Cepacol Lozenge -) 1 each MM DAILY PRN PRN Reason: SORE THROAT Sodium Chloride (Normal Saline -) 1,000 mls @ 125 mls/hr IV ASDIR [facility] Last Admin: 03/18/18 07:30 Dose: 125 mls/hr Levothyroxine Sodium (Synthroid -) 112 mcg PO DAILY@0700 [facility] Last Admin: 03/19/18 06:11 Dose: 112 mcg Ondansetron HCl (Zofran Injection) 8 mg IVPB Q8H PRN PRN Reason: NAUSEA Pantoprazole Sodium (Protonix -) 40 mg PO DAILY [facility] Last Admin: 03/19/18 09:25 Dose: 40 mg Simethicone (Mylicon -) 80 mg PO Q4H PRN PRN Reason: GAS - Objective Vital Signs: Vital Signs Temperature 98.5 F 03/19/18 06:00 Pulse Rate 70 03/19/18 06:00 Respiratory Rate 18 03/19/18 06:00 Blood Pressure 98/63 03/19/18 06:00 O2 Sat by Pulse Oximetry (%) 99 03/19/18 08:54 Constitutional: Yes: No Distress, Calm Cardiovascular: Yes: Regular Rate and Rhythm Respiratory: Yes: Regular, CTA Bilaterally Gastrointestinal: Yes: Normal Bowel Sounds, Soft Genitourinary: Yes: Other (nephrostomy tube in place urostomy tube in place) Musculoskeletal: Yes: WNL Extremities: Yes: WNL Wound/Incision: Yes: Clean/Dry Neurological: Yes: Alert, Oriented Psychiatric: Yes: Alert, Oriented Labs: CBC, BMP 03/19/18 06:00 03/19/18 06:00 INR, PTT INR 1.44 (0.83-1.09) H 03/17/18 05:30 Assessment/Plan Problem List - Problems (1) Neoplasm of sigmoid colon Code(s): D49.0 - NEOPLASM OF UNSPECIFIED BEHAVIOR OF DIGESTIVE SYSTEM (2) Sigmoid thickening Code(s): K63.9 - DISEASE OF INTESTINE, UNSPECIFIED (3) Abdominal pain Code(s): R10.9 - UNSPECIFIED ABDOMINAL PAIN Qualifiers: Abdominal location: left lower quadrant Qualified Code(s): R10.32 - Left lower quadrant pain (4) Abnormal colonoscopy Code(s): R93.3 - ABNORMAL FINDINGS ON DX IMAGING OF PRT DIGESTIVE TRACT fever abd distension DVT ? pe ureteral tear left s/p ext nephrostomy plan stopped abx cx results noted still might need change of the tube rest as per the team final plan awaited
--- NOTE | 2018-03-19 14:19 | PN ---
Physical Exam: SUBJECTIVE: Patient seen and examined at bed side , no acute events over night , he was slightly hypotensive overnight; he denies any CP/SOB/N/V fevers or chills. OBJECTIVE: Vital Signs Period Temp Pulse Resp BP Sys/Cavanaugh Pulse Ox Last 24 Hr 97.8 F-98.5 F 64-70 17-19 98-108/61-63 96-99 GENERAL: The patient is awake, alert, and fully oriented, in no acute distress. EYES: no scleral icterus NECK: no JVD. LUNGS: CTA B/L; no rales, rhonchi or wheezing HEART: Regular rate and rhythm, S1, S2 without murmur, rub or gallop. ABDOMEN: Soft, nontender, nondistended, normoactive bowel sounds, no guarding, no rebound, no hepatosplenomegaly, no masses urostomy bad in place with slight blood tinged urine, nephrosotomy tube in place, midline wound vac with colostomy bag EXTREMITIES: 2+ pulses, warm, well-perfused, no edema. . PSYCH: Normal mood, normal affect. SKIN: Warm, dry, normal turgor, no rashes or lesions noted Laboratory Results - last 24 hr 03/19/18 03/19/18 06:00 06:00 WBC 5.8 RBC 3.84 L Hgb 10.3 L Hct 32.2 L MCV 83.7 MCH 26.7 MCHC 31.9 L RDW 19.8 H Plt Count 386 MPV 6.4 L Sodium 138 Potassium 4.0 Chloride 103 Carbon Dioxide 29 Anion Gap 6 L BUN 7 Creatinine 0.5 L Creat Clearance w eGFR > 60 Random Glucose 89 Calcium 8.2 L Active Medications Generic Name Dose Route Start Last Admin Trade Name Freq PRN Reason Stop Dose Admin Acetaminophen 650 mg 03/09/18 16:03 03/18/18 16:25 Tylenol - PO 650 mg Q4H PRN Administration FEVER Amino Acids 30 ml 03/09/18 17:30 03/19/18 07:46 Prosource No Carb Liquid Pkt PO 30 ml BID@0800,1730 JERED Administration Apixaban 5 mg 03/15/18 22:00 03/19/18 09:25 Eliquis - PO 5 mg BID JERED Administration Benzocaine/Menthol 1 each 03/09/18 16:03 Cepacol Lozenge - MM DAILY PRN SORE THROAT Sodium Chloride 1,000 mls @ 125 mls/hr 03/16/18 07:19 03/18/18 07:30 Normal Saline - IV 125 mls/hr ASDIR JERED Administration Levothyroxine Sodium 112 mcg 03/10/18 07:00 03/19/18 06:11 Synthroid - PO 112 mcg DAILY@0700 JERED Administration Ondansetron HCl 8 mg 03/09/18 16:03 Zofran Injection IVPB Q8H PRN NAUSEA Pantoprazole Sodium 40 mg 03/10/18 10:00 03/19/18 09:25 Protonix - PO 40 mg DAILY JERED Administration Simethicone 80 mg 03/09/18 16:03 Mylicon - PO Q4H PRN GAS CBC, BMP 03/19/18 06:00 03/19/18 06:00 ASSESSMENT/PLAN: 57 year old man with history of hypothyroidism, Afib w/ RVR stage 1 colon cancer with Sue procedure performed 02/22 (Dr. Ventura). Patient with urine leak from abdominal site (02/26) found to have L sided ureteral extravasation with L nephrostomy tube placement (02/28). #Septic Shock possibly 2/2 urine leak * patient has been hypotensive * cx taken again from urosotmy/nephrostmy tube * restarted pt on zosyn empirically * cx negative * monitor hemodynamics * possible DC to snif #GI Abcess with urine leak and leukocytosis * Blood cultures (02/17) - without growth * Abscess culture (02/20) - lactose fermenting gram neg bacilli, coag pos staph , yeast * possible pus growing from nephrostomy tube * cx sent * restarted on zosyn * cx negative #Ureteral Extravasation with nephrostomy tube placementt. * L nephrostomy tube placed 02/28 * Lentz removed with 1200 cc urine * monitor urine output from nephrostomy tube * Cr from nephrosotmy tube came back at 30 * pateint was unable to have stent placed; Dr Persaud from [facility] will be seeing patient as he will be likely transferred there for procedure as per Dr. Espinosa but will need a 2 month cool down period and will need a SNF for some time #PE * evidence of right heart strain on ECHo * CTA done showing possible PE in right upper lobe and right middle lobe of lung * switched patient to eliquis 5mg BID last night and now patient has bloody urine in nephrostomy tube- placed call out to Dr. Suh * Pulmonary on board #Colon Ca * s/p Harrtmanns procedure * patient now has wound vac in place * f/u oncology recs #Hypothyroidism * TSH within normal limits * c/w home dose of levothyroxine F/E/N * NS @125mls/hr * monitor electrolytes * low sodium diet #GI ppx * Protonix 40mg daily #DVT ppx * eliquis * Scds # Possible DC to snif pending reconstruction uro surgery at [facility] Visit type - Emergency Visit Emergency Visit: Yes ED Registration Date: 02/13/18 Care time: The patient presented to the Emergency Department on the above date and was hospitalized for further evaluation of their emergent condition. - New Patient This patient is new to me today: No - Critical Care Critical Care patient: No
[2018-03-19] MEDS: ACETAMINOPHEN 325 MG TABLET (FP) PO PRN (14:20)
[2018-03-19] MEDS: SODIUM CHLORIDE 1,000 ML IV SCH ×2 (14:23→21:07)
[2018-03-19] MEDS ORDERED: SIMETHICONE 80 MG TAB.CHEW (FP) PO PRN (17:36)
[2018-03-19] MEDS ORDERED: ONDANSETRON 4 MG/2 ML VIAL IVPB PRN (17:36)
[2018-03-19] MEDS ORDERED: BENZOCAINE/MENTH/CETYLPYRD CL 1 EACH LOZENGE MM PRN (17:36)
[2018-03-19] MEDS ORDERED: ACETAMINOPHEN 325 MG TABLET (FP) PO PRN (17:36)
--- NOTE | 2018-03-19 19:52 | PN ---
Teaching Attending Note Name of Resident: Joaquín Boggs ATTENDING PHYSICIAN STATEMENT I saw and evaluated the patient. I reviewed the resident's note and discussed the case with the resident. I agree with the resident's findings and plan as documented. SUBJECTIVE: Feels well - no complaints. no abdominal discomfort. OBJECTIVE:Afebrile, Hemodynamically stable. Last Vital Signs Temp Pulse Resp BP Pulse Ox 98.6 F 69 18 115/70 99 03/19/18 18:40 03/19/18 18:40 03/19/18 18:40 03/19/18 18:40 03/19/18 08:54 HEENT - No pharyngeal erythema/exudate Heart - S1, S2, RRR Lungs - clear to auscultation Abdomen - Midline laparotomy incision site with wound vac. Colostomy with soft stool. Nephrostomy and Urostomy with some bloody fluid. Extremities - No calf tenderness. No edema. Neuro - AAO x 3. Moving all 4 extremities Laboratory Results - last 24 hr 03/19/18 03/19/18 06:00 06:00 WBC 5.8 RBC 3.84 L Hgb 10.3 L Hct 32.2 L MCV 83.7 MCH 26.7 MCHC 31.9 L RDW 19.8 H Plt Count 386 MPV 6.4 L Sodium 138 Potassium 4.0 Chloride 103 Carbon Dioxide 29 Anion Gap 6 L BUN 7 Creatinine 0.5 L Creat Clearance w eGFR > 60 Random Glucose 89 Calcium 8.2 L Current Medications Generic Name Dose Route Start Last Admin Trade Name Freq PRN Reason Stop Dose Admin Acetaminophen 650 mg 03/19/18 17:36 Tylenol - PO Q4H PRN FEVER Amino Acids 30 ml 03/20/18 08:00 Prosource No Carb Liquid Pkt PO BID@0800,1730 JERED Apixaban 5 mg 03/19/18 22:00 Eliquis - PO BID JERED Benzocaine/Menthol 1 each 03/19/18 17:36 Cepacol Lozenge - MM DAILY PRN SORE THROAT Sodium Chloride 1,000 mls @ 125 mls/hr 03/19/18 17:36 Normal Saline - IV ASDIR JERED Levothyroxine Sodium 112 mcg 03/20/18 07:00 Synthroid - PO DAILY@0700 JERED Ondansetron HCl 8 mg 03/19/18 17:36 Zofran Injection IVPB Q8H PRN NAUSEA Pantoprazole Sodium 40 mg 03/20/18 10:00 Protonix - PO DAILY JERED Simethicone 80 mg 03/19/18 17:36 Mylicon - PO Q4H PRN GAS ASSESSMENT AND PLAN: 57 year old man with a history of hypothyroidism who presented with abdominal pain. He is POD 28 s/p Sigmoid Colectomy with Primary anastamosis for colon Ca with subsequent completion of left colectomy and Sue's due to perforated diverticulum distal to anastamosis (POD 21), complicated by ureteral injury/ transection, now with Urostomy and Nephrostomy. 1. Adenocarcinoma of colon s/p sigmoid colectomy with primary anastomosis 02/14 with subsequent Perforated diverticulum distal to anastomosis with peritonitis s/p exploratory laparotomy, abdominal wash out, completion of left colectomy, Sue's 02/21. Wound Care of surgical incision ongoing with wound vac. Good oral intake with Colostomy functioning well. 3. Probable transection of left ureter s/p left percutaneous nephrostomy by IR Concern for purulent fluid in Urostomy drain s/p drainage of uroma by IR 03/01. Cultures of Urostomy and Nephrostomy 03/15 both returned negative. received 3 days of empiric Zosyn until cultures returned negative. Zosyn discontinued 03/18. Further recommendations as per ID. Will need to follow up on [facility] for reimplantation/reconstruction and colostomy reversal in 2 months (Dr. Cristian Kennedy MD, urologic oncology and Gerry Meeks MD, colorectal surgery) 4. Septic shock secondary to peritonitis - resolved. 5. LLE DVT and PE - Provoked - Continue Eliquis x 6 months with hematology follow up 6. Paroxysmal atrial fib/Troponin egression sec to demand ischemia - developed due to stress of surgery and complications - started on Eliquis 7. Acute hypoxic respiratory failure secondary to sepsis - resolved. 8. Hypothyroidism - Continue Synthroid. Dispo - PT eval for possible SNF given multiple drains/wound vac and colostomy care. DVT Px - on Eliquis GI Px - on Protonix
[2018-03-20] MEDS: LEVOTHYROXINE NA 112 MCG TABLET (FP) PO SCH (06:08)
[2018-03-20] MEDS: SODIUM CHLORIDE 1,000 ML IV SCH ×3 (06:09→21:38)
[2018-03-20 07:12] LABS: BASO % 0.3 % (0-2.0); EOS % 2.5 % (0-4.5); HEMATOCRIT 30.3 % (35.4-49); HEMOGLOBIN 9.6 GM/dL (11.7-16.9); LYMPH % 24.1 % (8-40); MCH 26.7 pg (25.7-33.7); MCHC 31.8 g/dl (32.0-35.9); MEAN PLT VOLUME 6.4 fl (7.5-11.1); MONO % 8.3 % (3.8-10.2); NEUT % 64.8 % (42.8-82.8); PLATELET COUNT 378 K/MM3 (134-434); RBC 3.61 M/mm3 (4.00-5.60); RDW 19.9 % (11.9-15.9); WHITE BLOOD COUNT 5.7 K/mm3 (4.0-10.0)
[2018-03-20 07:39] LABS: ANION GAP 6 MMOL/L (8-16); BLOOD UREA NITROGEN 6 mg/dL (7-18); CALCIUM 7.7 mg/dL (8.5-10.1); CHLORIDE 107 mmol/L (98-107); CO2 27 mmol/L (21-32); CREATININE 0.5 mg/dL (0.55-1.3); GLUCOSE,RANDOM 98 mg/dL (74-106); POTASSIUM 4.1 mmol/L (3.5-5.1); SODIUM 141 mmol/L (136-145)
[2018-03-20] MEDS: AMINO ACIDS/PROTEIN HYDROLYS 30 ML LIQUID.PKT PO SCH ×2 (08:21→17:51)
[2018-03-20] MEDS: PANTOPRAZOLE 40 MG TABLET (FP) PO SCH (11:50)
[2018-03-20] MEDS: APIXABAN 5 MG TABLET PO SCH ×2 (11:50→21:37)
--- NOTE | 2018-03-20 12:08 | PN ---
Progress Note, Physician History of Present Illness: stable doing well urine still looks dirty in the nephrostomy tube patient comfortable - Current Medication List Current Medications: Active Medications Acetaminophen (Tylenol -) 650 mg PO Q4H PRN PRN Reason: FEVER Amino Acids (Prosource No Carb Liquid Pkt) 30 ml PO BID@0800,1730 [facility] Last Admin: 03/20/18 08:21 Dose: 30 ml Apixaban (Eliquis -) 5 mg PO BID [facility] Last Admin: 03/20/18 11:50 Dose: 5 mg Benzocaine/Menthol (Cepacol Lozenge -) 1 each MM DAILY PRN PRN Reason: SORE THROAT Sodium Chloride (Normal Saline -) 1,000 mls @ 125 mls/hr IV ASDIR [facility] Last Admin: 03/20/18 06:09 Dose: 125 mls/hr Levothyroxine Sodium (Synthroid -) 112 mcg PO DAILY@0700 [facility] Last Admin: 03/20/18 06:08 Dose: 112 mcg Ondansetron HCl (Zofran Injection) 8 mg IVPB Q8H PRN PRN Reason: NAUSEA Pantoprazole Sodium (Protonix -) 40 mg PO DAILY [facility] Last Admin: 03/20/18 11:50 Dose: 40 mg Simethicone (Mylicon -) 80 mg PO Q4H PRN PRN Reason: GAS - Objective Vital Signs: Vital Signs Temperature 99.9 F H 03/20/18 05:30 Pulse Rate 64 03/20/18 05:30 Respiratory Rate 16 03/20/18 05:30 Blood Pressure 105/66 03/20/18 05:30 O2 Sat by Pulse Oximetry (%) 99 03/19/18 21:00 Constitutional: Yes: No Distress, Calm Cardiovascular: Yes: Regular Rate and Rhythm Respiratory: Yes: Regular, CTA Bilaterally Gastrointestinal: Yes: Normal Bowel Sounds, Soft Genitourinary: Yes: Other (ext nephrostomy tube in place urostomy tube in place) Musculoskeletal: Yes: WNL Extremities: Yes: WNL Neurological: Yes: Alert, Oriented Psychiatric: Yes: Alert, Oriented Labs: CBC, BMP 03/20/18 06:15 03/20/18 06:15 INR, PTT INR 1.44 (0.83-1.09) H 03/17/18 05:30 Assessment/Plan Problem List - Problems (1) Neoplasm of sigmoid colon Code(s): D49.0 - NEOPLASM OF UNSPECIFIED BEHAVIOR OF DIGESTIVE SYSTEM (2) Sigmoid thickening Code(s): K63.9 - DISEASE OF INTESTINE, UNSPECIFIED (3) Abdominal pain Code(s): R10.9 - UNSPECIFIED ABDOMINAL PAIN Qualifiers: Abdominal location: left lower quadrant Qualified Code(s): R10.32 - Left lower quadrant pain (4) Abnormal colonoscopy Code(s): R93.3 - ABNORMAL FINDINGS ON DX IMAGING OF PRT DIGESTIVE TRACT fever abd distension DVT ? pe ureteral tear left s/p ext nephrostomy plan stopped abx cx results noted consider changing of nephrostomy tube rest as per the team final plan awaited
--- NOTE | 2018-03-20 13:58 | PN ---
Progress Note (short form) - Note Progress Note: PULMONARY Denies shortness of breath or chest pain. Vital Signs Period Temp Pulse Resp BP Sys/Cavanaugh Pulse Ox Last 24 Hr 98 F-99.9 F 64-76 16-18 100-115/57-70 99-99 Gen: NAD at rest Heart: RRR Lung: decreased breath sounds at the bases Abd: soft, nontender, +ostomy, drains Ext: no edema CBC, BMP 03/20/18 06:15 03/20/18 06:15 Active Medications Acetaminophen (Tylenol -) 650 mg PO Q4H PRN PRN Reason: FEVER Last Admin: 03/20/18 13:44 Dose: 650 mg Amino Acids (Prosource No Carb Liquid Pkt) 30 ml PO BID@0800,1730 [facility] Last Admin: 03/20/18 08:21 Dose: 30 ml Apixaban (Eliquis -) 5 mg PO BID [facility] Last Admin: 03/20/18 11:50 Dose: 5 mg Benzocaine/Menthol (Cepacol Lozenge -) 1 each MM DAILY PRN PRN Reason: SORE THROAT Sodium Chloride (Normal Saline -) 1,000 mls @ 125 mls/hr IV ASDIR [facility] Last Admin: 03/20/18 12:16 Dose: 125 mls/hr Levothyroxine Sodium (Synthroid -) 112 mcg PO DAILY@0700 [facility] Last Admin: 03/20/18 06:08 Dose: 112 mcg Ondansetron HCl (Zofran Injection) 8 mg IVPB Q8H PRN PRN Reason: NAUSEA Pantoprazole Sodium (Protonix -) 40 mg PO DAILY [facility] Last Admin: 03/20/18 11:50 Dose: 40 mg Simethicone (Mylicon -) 80 mg PO Q4H PRN PRN Reason: GAS A/P Colon CA S/P Sigmoid Colectomy 02/14 Post op Fecal Peritonitis/Perforated Diverticulum S/P ex-lap/abdominal washout/Left Colectomy/End Colostomy Paroxysmal Atrial Fibrillation s/p Acute Hypoxic Respiratory Failure Left Ureteral Leak s/p Nephrostomy placement Intra-abdominal Abscess s/p IR drainage Septic Shock resolved +Troponins likely Demand Ischemia Hypothyroidism Acute DVT/PE Likely Provoked - continue anticoagulation - incentive spirometry - PO as tolerated - O2 to keep Spo2 >90 - monitor drain output - rehab/PT
--- NOTE | 2018-03-20 14:46 | PN ---
Physical Exam: SUBJECTIVE: Patient seen and examined at bedside. Denies any acute complaints this morning. Denies abdominal pain. urinating well without dysuria or hematuria. Urostomy draining blood tinged/ mucoid sanguinous discharge. Abdominal wound with vac in place, clean, dry, without erythema. OBJECTIVE: Vital Signs Period Temp Pulse Resp BP Sys/Cavanaugh Pulse Ox Last 24 Hr 98 F-99.9 F 64-76 16-18 100-115/57-70 99-99 GENERAL: The patient is awake, alert, and fully oriented, in no acute distress. HEAD: Normal with no signs of trauma. EYES: PERRL, extraocular movements intact, sclera anicteric, conjunctiva clear. ENT: Ears normal, nares patent, oropharynx clear without exudates, moist mucous membranes. NECK: Trachea midline, full range of motion, supple. LUNGS: Breath sounds equal, clear to auscultation bilaterally, no wheezes, no crackles, no accessory muscle use. HEART: Regular rate and rhythm, S1, S2 without murmur, rub or gallop. ABDOMEN: Soft, nontender, nondistended, normoactive bowel sounds, no guarding, no rebound, no hepatosplenomegaly, no masses. Vertical midline abdominal wound, with vac in place, clean, dry, without erythema. Colostomy bag with soft light brown stool. Urostomy bag in place, slight blood tinged urine. EXTREMITIES: 2+ pulses, warm, well-perfused, no edema. NEUROLOGICAL: Cranial nerves II through XII grossly intact. Normal speech. PSYCH: Normal mood, normal affect. SKIN: Warm, dry, normal turgor, no rashes or lesions noted. Laboratory Results - last 24 hr 03/20/18 03/20/18 06:15 06:15 WBC 5.7 RBC 3.61 L Hgb 9.6 L Hct 30.3 L MCV 84.0 MCH 26.7 MCHC 31.8 L RDW 19.9 H Plt Count 378 MPV 6.4 L Absolute Neuts (auto) 3.7 Neutrophils % 64.8 Lymphocytes % 24.1 Monocytes % 8.3 Eosinophils % 2.5 Basophils % 0.3 Nucleated RBC % 0 Sodium 141 Potassium 4.1 Chloride 107 Carbon Dioxide 27 Anion Gap 6 L BUN 6 L Creatinine 0.5 L Creat Clearance w eGFR > 60 Random Glucose 98 Calcium 7.7 L Active Medications Generic Name Dose Route Start Last Admin Trade Name Freq PRN Reason Stop Dose Admin Acetaminophen 650 mg 03/19/18 17:36 03/20/18 13:44 Tylenol - PO 650 mg Q4H PRN Administration FEVER Amino Acids 30 ml 03/20/18 08:00 03/20/18 08:21 Prosource No Carb Liquid Pkt PO 30 ml BID@0800,1730 JERED Administration Apixaban 5 mg 03/19/18 22:00 03/20/18 11:50 Eliquis - PO 5 mg BID JERED Administration Benzocaine/Menthol 1 each 03/19/18 17:36 Cepacol Lozenge - MM DAILY PRN SORE THROAT Sodium Chloride 1,000 mls @ 125 mls/hr 03/19/18 17:36 03/20/18 12:16 Normal Saline - IV 125 mls/hr ASDIR [facility]ED Administration Levothyroxine Sodium 112 mcg 03/20/18 07:00 03/20/18 06:08 Synthroid - PO 112 mcg DAILY@0700 J[facility]ED Administration Ondansetron HCl 8 mg 03/19/18 17:36 Zofran Injection IVPB Q8H PRN NAUSEA Pantoprazole Sodium 40 mg 03/20/18 10:00 03/20/18 11:50 Protonix - PO 40 mg DAILY JERED Administration Simethicone 80 mg 03/19/18 17:36 Mylicon - PO Q4H PRN GAS ASSESSMENT/PLAN: Patient is a 57 year old male with history of Afib with RVR, newly diagnosed stage 1 colon cancer, s/p sigmoid colectomy, lemus's procedure, and left sided ureteral extravasation s/p left nephrostomy tube placement. Colon cancer -Stage 1. S/P sigmoid colectomy (02/14), Lemus's procedure (02/22) -Colostomy bag functioning, with light brown soft stool -Oncology recommendations appreciated. GI abscess -Initial abscess cultures grew lactose fermenting gram negative bacilli, coagulase positive staph (02/20) -Most recent blood cultures (03/02) negative -Zosyn discontinued as per ID (Dr. Perry) Left ureteral extravasation -S/P nephrostomy tube placement (02/28) -Patient urinating clear light yellow urine -Patient to follow up at [facility] with Dr. Foster in two months for reconstructive surgery. Pulmonary embolism -CTA shows PE in right upper and middle lobe of lung -Cardiac ECHO shows right heart strain -Eliquis 5mg PO BID- will continue for 6 months Paroxysmal Afib -Currently rate controlled. -Patient is on Eliquis Hypothyroidism -Levothyroxine 112mcg PO daily FEN -IV NS at 125mL/ hour -Follow CMP -Sodium controlled diet Prophylaxis -Protonix 40mg PO daily -Patient is on Eliquis 5mg PO daily -SCDs b/l lower extremities Disposition -Continue care in medical surgical floor. Considering possible D/C to SNF Visit type - Emergency Visit Emergency Visit: Yes ED Registration Date: 02/13/18 Care time: The patient presented to the Emergency Department on the above date and was hospitalized for further evaluation of their emergent condition. - New Patient This patient is new to me today: Yes Date on this admission: 03/20/18 - Critical Care Critical Care patient: No - Discharge Referral Referred to [facility] Med P.C.: No
--- NOTE | 2018-03-20 20:00 | PN ---
Teaching Attending Note Name of Resident: Cameron Gusman ATTENDING PHYSICIAN STATEMENT I saw and evaluated the patient. I reviewed the resident's note and discussed the case with the resident. I agree with the resident's findings and plan as documented. SUBJECTIVE: Tearful today re: clinical circumstances, being dependent on nursing care etc. No medical complaints. Denies fever/chills. No abdominal pain/ nausea/vomiting. OBJECTIVE: T 99.9. BP borderline. Last Vital Signs Temp Pulse Resp BP Pulse Ox 98.0 F 70 18 103/61 99 03/20/18 15:03 03/20/18 15:03 03/20/18 15:03 03/20/18 15:03 03/20/18 09:00 HEENT - No pharyngeal erythema/exudate Heart - S1, S2, RRR Lungs - clear to auscultation - no crackles/wheeze Abdomen - Midline laparotomy incision site with wound vac. Colostomy with soft stool. Nephrostomy and Urostomy with some bloody fluid. Nephrostomy with some serous exudate versus pus Extremities - No calf tenderness. No edema. Neuro - AAO x 3. Moving all 4 extremities Laboratory Results - last 24 hr 03/20/18 03/20/18 06:15 06:15 WBC 5.7 RBC 3.61 L Hgb 9.6 L Hct 30.3 L MCV 84.0 MCH 26.7 MCHC 31.8 L RDW 19.9 H Plt Count 378 MPV 6.4 L Absolute Neuts (auto) 3.7 Neutrophils % 64.8 Lymphocytes % 24.1 Monocytes % 8.3 Eosinophils % 2.5 Basophils % 0.3 Nucleated RBC % 0 Sodium 141 Potassium 4.1 Chloride 107 Carbon Dioxide 27 Anion Gap 6 L BUN 6 L Creatinine 0.5 L Creat Clearance w eGFR > 60 Random Glucose 98 Calcium 7.7 L Current Medications Generic Name Dose Route Start Last Admin Trade Name Freq PRN Reason Stop Dose Admin Acetaminophen 650 mg 03/19/18 17:36 03/20/18 13:44 Tylenol - PO 650 mg Q4H PRN Administration FEVER Amino Acids 30 ml 03/20/18 08:00 03/20/18 17:51 Prosource No Carb Liquid Pkt PO 30 ml BID@0800,1730 [facility] Administration Apixaban 5 mg 03/19/18 22:00 03/20/18 11:50 Eliquis - PO 5 mg BID [facility]ERED Administration Benzocaine/Menthol 1 each 03/19/18 17:36 Cepacol Lozenge - MM DAILY PRN SORE THROAT Sodium Chloride 1,000 mls @ 125 mls/hr 03/19/18 17:36 03/20/18 12:16 Normal Saline - IV 125 mls/hr ASDIR [facility] Administration Levothyroxine Sodium 112 mcg 03/20/18 07:00 03/20/18 06:08 Synthroid - PO 112 mcg DAILY@0700 [facility] Administration Ondansetron HCl 8 mg 03/19/18 17:36 Zofran Injection IVPB Q8H PRN NAUSEA Pantoprazole Sodium 40 mg 03/20/18 10:00 03/20/18 11:50 Protonix - PO 40 mg DAILY [facility] Administration Simethicone 80 mg 03/19/18 17:36 Mylicon - PO Q4H PRN GAS ASSESSMENT AND PLAN: 57 year old man with a history of hypothyroidism who presented with abdominal pain. He is POD 29 s/p Sigmoid Colectomy with Primary anastamosis for colon Ca with subsequent completion of left colectomy and Sue's due to perforated diverticulum distal to anastamosis (POD 22), complicated by ureteral injury/ transection, now with Urostomy and Nephrostomy. 1. Adenocarcinoma of colon s/p sigmoid colectomy with primary anastomosis 02/14 with subsequent Perforated diverticulum distal to anastomosis with peritonitis s/p exploratory laparotomy, abdominal wash out, completion of left colectomy, Sue's 02/21. Wound Care of surgical incision ongoing with wound vac. Good oral intake with Colostomy functioning well. 3. Transection of left ureter s/p left percutaneous nephrostomy by IR Concern for purulent fluid in Urostomy drain s/p drainage of uroma by IR 03/01. Cultures of Urostomy and Nephrostomy 03/15 both returned negative. Received 3 days of empiric Zosyn until cultures returned negative. Zosyn discontinued 03/18. However T 99.9 and BP borderline on IV fluids. Further recommendations per ID include IR consult for changing of Nephrostomy tube given pussy collection in Nephrostomy bag. Will request. Will need to follow up at [facility] for reimplantation/reconstruction of ureter and colostomy reversal in 2 months (Dr. Cristian Kennedy MD, urologic oncology and Gerry Meeks MD, colorectal surgery) 4. Septic shock secondary to peritonitis - resolved. 5. LLE DVT and PE - Provoked - Continue Eliquis x 6 months with hematology follow up 6. Paroxysmal atrial fib/Troponin egression sec to demand ischemia - developed due to stress of surgery and complications - started on Eliquis. Now in SR. 7. Acute hypoxic respiratory failure secondary to sepsis - resolved. 8. Hypothyroidism - Continue Synthroid. Dispo - likely SNF given multiple drains/wound vac and colostomy care. DVT Px - on Eliquis GI Px - on Protonix
[2018-03-21 06:04] LABS: HEMATOCRIT 29.7 % (35.4-49); HEMOGLOBIN 9.4 GM/dL (11.7-16.9); MCH 26.6 pg (25.7-33.7); MCHC 31.7 g/dl (32.0-35.9); MEAN CELL VOLUME 83.9 fl (80-96); MEAN PLT VOLUME 6.4 fl (7.5-11.1); PLATELET COUNT 377 K/MM3 (134-434); RBC 3.54 M/mm3 (4.00-5.60); RDW 19.5 % (11.9-15.9)
[2018-03-21] MEDS: SODIUM CHLORIDE 1,000 ML IV SCH ×2 (06:06→17:10)
[2018-03-21] MEDS: LEVOTHYROXINE NA 112 MCG TABLET (FP) PO SCH (06:07)
--- NOTE | 2018-03-21 06:46 | PN ---
Physical Exam: SUBJECTIVE: Patient seen and examined at bedside. Denies any acute complaints this morning. Denies abdominal pain. Urinating well without dysuria or hematuria. Left nephrostomy tube draining 400cc overnight of mucoid fluid. Urostomy draining Abdominal wound with vac in place, clean, dry, without erythema OBJECTIVE: Vital Signs Period Temp Pulse Resp BP Sys/Cavanaugh Pulse Ox Last 24 Hr 98.0 F-98.8 F 58-76 18-19 89-110/61-70 99-99 GENERAL: The patient is awake, alert, and fully oriented, in no acute distress. HEAD: Normal with no signs of trauma. EYES: PERRL, extraocular movements intact, sclera anicteric, conjunctiva clear. ENT: Ears normal, nares patent, oropharynx clear without exudates, moist mucous membranes. NECK: Trachea midline, full range of motion, supple. LUNGS: Breath sounds equal, clear to auscultation bilaterally, no wheezes, no crackles, no accessory muscle use. HEART: Regular rate and rhythm, S1, S2 without murmur, rub or gallop. ABDOMEN: Soft, nontender, nondistended, normoactive bowel sounds, no guarding, no rebound, no hepatosplenomegaly, no masses. Vertical midline abdominal wound, with vac in place, clean, dry, without erythema. Colostomy bag with soft light brown stool. Urostomy bag in place, slight blood tinged urine. EXTREMITIES: 2+ pulses, warm, well-perfused, no edema. NEUROLOGICAL: Cranial nerves II through XII grossly intact. Normal speech. PSYCH: Normal mood, normal affect. SKIN: Warm, dry, normal turgor, no rashes or lesions noted. Laboratory Results - last 24 hr 03/20/18 03/20/18 03/21/18 06:15 06:15 05:30 WBC 5.7 5.0 RBC 3.61 L 3.54 L Hgb 9.6 L 9.4 L Hct 30.3 L 29.7 L MCV 84.0 83.9 MCH 26.7 26.6 MCHC 31.8 L 31.7 L RDW 19.9 H 19.5 H Plt Count 378 377 MPV 6.4 L 6.4 L Absolute Neuts (auto) 3.7 Neutrophils % 64.8 Lymphocytes % 24.1 Monocytes % 8.3 Eosinophils % 2.5 Basophils % 0.3 Nucleated RBC % 0 Sodium 141 Potassium 4.1 Chloride 107 Carbon Dioxide 27 Anion Gap 6 L BUN 6 L Creatinine 0.5 L Creat Clearance w eGFR > 60 Random Glucose 98 Calcium 7.7 L Active Medications Generic Name Dose Route Start Last Admin Trade Name Freq PRN Reason Stop Dose Admin Acetaminophen 650 mg 03/19/18 17:36 03/20/18 13:44 Tylenol - PO 650 mg Q4H PRN Administration FEVER Amino Acids 30 ml 03/20/18 08:00 03/20/18 17:51 Prosource No Carb Liquid Pkt PO 30 ml BID@0800,1730 JERED Administration Apixaban 5 mg 03/19/18 22:00 03/20/18 21:37 Eliquis - PO 5 mg BID JERED Administration Benzocaine/Menthol 1 each 03/19/18 17:36 Cepacol Lozenge - MM DAILY PRN SORE THROAT Sodium Chloride 1,000 mls @ 125 mls/hr 03/19/18 17:36 03/21/18 06:06 Normal Saline - IV 125 mls/hr ASDIR JERED Administration Levothyroxine Sodium 112 mcg 03/20/18 07:00 03/21/18 06:07 Synthroid - PO 112 mcg DAILY@0700 JERED Administration Ondansetron HCl 8 mg 03/19/18 17:36 Zofran Injection IVPB Q8H PRN NAUSEA Pantoprazole Sodium 40 mg 03/20/18 10:00 03/20/18 11:50 Protonix - PO 40 mg DAILY JERED Administration Simethicone 80 mg 03/19/18 17:36 Mylicon - PO Q4H PRN GAS ASSESSMENT/PLAN: Patient is a 57 year old male with history of Afib with RVR, newly diagnosed stage 1 colon cancer, s/p sigmoid colectomy, lemus's procedure, and left sided ureteral extravasation s/p left nephrostomy tube placement and intra- abdominal abscess drainage. Colon cancer -Stage 1. S/P sigmoid colectomy (02/14), Lemus's procedure (02/21) -Colostomy bag functioning, with light brown soft stool -Oncology recommendations appreciated. -F/U psychiatry evaluation (Dr. Zavala) GI abscess -Initial abscess cultures grew lactose fermenting gram negative bacilli, coagulase positive staph (02/20) -Most recent blood cultures (03/02) negative -Zosyn discontinued as per ID (Dr. Perry) -F/U nephrostomy tube drainage cultures Left ureteral extravasation -S/P nephrostomy tube placement (02/27) and IR uroma drainage (03/01) -Nephrostomy tube changed today by IR. -Patient urinating clear light yellow urine -Patient to follow up at [facility] with Dr. Foster in two months for reconstructive surgery. Pulmonary embolism, Left DVT -CTA shows PE in right upper and middle lobe of lung -US of left lower extremity confirms left femoral DVT -Cardiac ECHO shows right heart strain -Eliquis 5mg PO BID- will continue for 6 months Paroxysmal Afib -Currently rate controlled. -Patient is on Eliquis Hypothyroidism -Levothyroxine 112mcg PO daily FEN -IV NS at 125mL/ hour -Follow CMP -Sodium controlled diet Prophylaxis -Protonix 40mg PO daily -Patient is on Eliquis 5mg PO daily -SCDs b/l lower extremities Disposition -Continue care in medical surgical floor. Likely D/C to [facility] tomorrow for rehab. PT evaluation Visit type - Emergency Visit Emergency Visit: Yes ED Registration Date: 02/13/18 Care time: The patient presented to the Emergency Department on the above date and was hospitalized for further evaluation of their emergent condition. - New Patient This patient is new to me today: No - Critical Care Critical Care patient: No - Discharge Referral Referred to [facility] Med P.C.: No
[2018-03-21 06:58] LABS: ALBUMIN 2.2 g/dl (3.4-5.0); ALK PHOS 124 U/L (45-117); ANION GAP 6 MMOL/L (8-16); BILIRUBIN,TOTAL 0.3 mg/dL (0.2-1); BLOOD UREA NITROGEN 8 mg/dL (7-18); CALCIUM 7.8 mg/dL (8.5-10.1); CHLORIDE 109 mmol/L (98-107); CO2 27 mmol/L (21-32); CREATININE 0.5 mg/dL (0.55-1.3); GLUCOSE,RANDOM 95 mg/dL (74-106); MAGNESIUM 1.8 mg/dL (1.8-2.4); PHOSPHOROUS 4.3 mg/dL (2.5-4.9); POTASSIUM 3.9 mmol/L (3.5-5.1); SGOT/AST 11 U/L (15-37); SGPT/ALT 27 U/L (13-61); SODIUM 141 mmol/L (136-145)
[2018-03-21] MEDS: AMINO ACIDS/PROTEIN HYDROLYS 30 ML LIQUID.PKT PO SCH ×2 (08:02→17:09)
--- NOTE | 2018-03-21 09:11 | PN ---
Teaching Attending Note Name of Resident: Cameron Gusman ATTENDING PHYSICIAN STATEMENT I saw and evaluated the patient. I reviewed the resident's note and discussed the case with the resident. I agree with the resident's findings and plan as documented with exceptions below. SUBJECTIVE: Patient seen and examined. just had his nephrostomy changed, feels well, no nausea, vomiting, abdominal pain or new complaints. OBJECTIVE: Vital Signs Period Temp Pulse Resp BP Sys/Cavanaugh Pulse Ox Last 24 Hr 98.0 F-98.8 F 58-76 18-19 89-110/61-70 99 Intake & Output 03/18/18 03/19/18 03/20/18 03/21/18 23:59 23:59 23:59 23:59 Intake Total 4070 5046 4350 1500 Output Total 3005 4065 3215 Balance 9419 728 0598 1500 Weight 162 lb 6 oz 162 lb 2 oz 159 lb 9.6 oz General: sitting in chair in no acute distress Chest: CTAB, no rales or wheezing, good effort Abdomen: soft, NT exam currently, surgical dressing clean, positive bowel sounds , no voluntary or involuntary guarding or rigidity, Left colostomy, left nephrostomy wiht yellowish drainage, left pigtail with yellowish drainage Extremities: no edema or tenderness Home Medications Medication Instructions Recorded Levothyroxine [Synthroid -] 100 mcg PO DAILY 02/13/18 Active Medications Acetaminophen (Tylenol -) 650 mg PO Q4H PRN PRN Reason: FEVER Last Admin: 03/20/18 13:44 Dose: 650 mg Amino Acids (Prosource No Carb Liquid Pkt) 30 ml PO BID@0800,1730 [facility] Last Admin: 03/21/18 08:02 Dose: 30 ml Apixaban (Eliquis -) 5 mg PO BID [facility] Last Admin: 03/20/18 21:37 Dose: 5 mg Benzocaine/Menthol (Cepacol Lozenge -) 1 each MM DAILY PRN PRN Reason: SORE THROAT Sodium Chloride (Normal Saline -) 1,000 mls @ 125 mls/hr IV ASDIR [facility] Last Admin: 03/21/18 06:06 Dose: 125 mls/hr Levothyroxine Sodium (Synthroid -) 112 mcg PO DAILY@0700 [facility] Last Admin: 03/21/18 06:07 Dose: 112 mcg Ondansetron HCl (Zofran Injection) 8 mg IVPB Q8H PRN PRN Reason: NAUSEA Pantoprazole Sodium (Protonix -) 40 mg PO DAILY [facility] Last Admin: 03/20/18 11:50 Dose: 40 mg Simethicone (Mylicon -) 80 mg PO Q4H PRN PRN Reason: GAS Laboratory Results - last 24 hr 03/21/18 03/21/18 05:30 05:30 WBC 5.0 RBC 3.54 L Hgb 9.4 L Hct 29.7 L MCV 83.9 MCH 26.6 MCHC 31.7 L RDW 19.5 H Plt Count 377 MPV 6.4 L Sodium 141 Potassium 3.9 Chloride 109 H Carbon Dioxide 27 Anion Gap 6 L BUN 8 Creatinine 0.5 L Creat Clearance w eGFR > 60 Random Glucose 95 Calcium 7.8 L Phosphorus 4.3 Magnesium 1.8 Total Bilirubin 0.3 AST 11 L ALT 27 Alkaline Phosphatase 124 H Total Protein 6.0 L Albumin 2.2 L Microbiology 03/15/18 15:00 Urine - Urostomy Bag Urine Culture - Final NO GROWTH OBTAINED 03/15/18 15:00 Urine - Urine Nephrostomy Tube Left Urine Culture - Final NO GROWTH OBTAINED 03/09/18 07:40 Urine - Urine Nephrostomy Tube Left Urine Culture - Final NO GROWTH OBTAINED 03/02/18 08:40 Blood - Peripheral Venous Blood Culture - Final NO GROWTH AFTER 5 DAYS INCUBATION 03/02/18 08:35 Blood - Peripheral Venous Blood Culture - Final NO GROWTH AFTER 5 DAYS INCUBATION 03/01/18 17:00 Ascites Gram Stain - Final 03/01/18 17:00 Ascites Body Fluid Culture - Final Yeast Like Organism 03/01/18 17:00 Ascites Anaerobic Culture - Final NO ANAEROBES WERE ISOLATED 03/01/18 17:00 Ascites AFB Smear Concentration - Final 03/01/18 17:00 Ascites Mycobacterial Culture - Preliminary 03/02/18 10:00 Urine - Urine Lentz Urine Culture - Final NO GROWTH OBTAINED 03/01/18 17:00 Ascites RADHA Preparation - Preliminary 03/01/18 17:00 Ascites Fungal Culture - Preliminary 02/24/18 14:50 Blood - Peripheral Venous Blood Culture - Final NO GROWTH AFTER 5 DAYS INCUBATION 02/24/18 14:30 Blood - Peripheral Venous Blood Culture - Final NO GROWTH AFTER 5 DAYS INCUBATION 02/22/18 21:40 Blood - Peripheral Venous Blood Culture - Final NO GROWTH AFTER 5 DAYS INCUBATION 02/22/18 20:15 Blood - Peripheral Venous Blood Culture - Final NO GROWTH AFTER 5 DAYS INCUBATION 02/20/18 14:30 Abscess Gram Stain - Final 02/20/18 14:30 Abscess Body Fluid Culture - Final Escherichia Coli Staphylococcus Aureus Yeast Like Organism 02/20/18 14:30 Abscess Anaerobic Culture - Final Bacteroides Fragilis 02/22/18 23:24 Urine - Urine Lentz Urine Culture - Final NO GROWTH OBTAINED 02/17/18 20:00 Blood - Peripheral Venous Blood Culture - Final NO GROWTH AFTER 5 DAYS INCUBATION 02/17/18 17:00 Blood - Peripheral Venous Blood Culture - Final NO GROWTH AFTER 5 DAYS INCUBATION 02/17/18 16:40 Urine - Urine Clean Catch Urine Culture - Final NO GROWTH OBTAINED ASSESSMENT AND PLAN: 57yo M with PMH hypothyroid presenetd to the ER with intermittent LLQ pain with recent colonoscopy with finding suspicious for malignancy. Pt underwent sigmoid colectomy on 02/14 which patient developed pneumoperitoneum and abdominal abscess and underwent ex-lap with abdominal washout and complete L hemicolectomy with Hartmans due to perforated diverticulum on 02/21. Pt went into AFib with RVR during the procedure which he self converted. Course complicated by L uretral injury with Ureteral extravsation seen with PCN tube was placed. [facility] called on 03/01 where pt was found to have a uroma where bedside pigtail placed and patient was transferred to ICU. [facility] request of patient and family, transferred out of ICU - - Stage 1 colon ca s/p resection and Hartmans- s/p surgeries as stated above with wound vac and colostomy in place. Further wound care and wound vac management per surgical team. tolerating solid food. pain control - Sepsis due to Urine leak-s/p pigtail placement bedside by IR draining clear urine. Urology unable to place stent, procedure abandoned. Discussed with Dr. Grubbs. Discussed with Dr. Ventura, case was discussed by him with Dr. Foster, suggests 1 step procedure for ureter/colostomy once active inflammation subsides in 2 months. Will need to follow up at [facility] for reimplantation/ reconstruction of ureter and colostomy reversal in 2 months (Dr. Cristian Kennedy MD, urologic oncology and Gerry Meeks MD, colorectal surgery) Per his discussion with Dr. Hussein, pigtail sutured and secured, ok to dc with current pigtail. Dr. Ventura arranging for outpatient wound care /colorectal surgery and urology follow up. Will follow up on his recs. Left nephrostomy with purulent drainage, cultures neg, IR guided nephrostomy tube change done today. Off abx. Monitor for now. - Abdominal abscess due to perforated diverticulum- s/p Hartmans 02/21. + polymicrobial (E.Coli, B.Fragilis, Yeast) on zosyn and fluconazole. leukocytosis resolved. repeat Cx neg, ID input noted, monitor off abx. - Hypotension - resolved. suspect from significant output. PO intake improved, BP stable, Continue IVF for now. Monitor for recurrent sepsis. - Acute Pulmonary embolism/LLE DVT with right heart strain-Continue eliquis. Will need AC for atleast 6 months of AC. - Troponemia- demand due to sepsis and hypoxia. Trop peaked at 0.86 and trended down. no indication for further monitoring of troponins. echo noted. - PAF- no repeat episodes of afib noted. no further workup at this time - pseudohypocalcemia- Montior ca levels. Encourage OOB/PT eval. Dispo planning by later this week if no new concerns. Plan discussed with patient in detail, all questions answered.
[2018-03-21] MEDS: APIXABAN 5 MG TABLET PO SCH ×2 (12:16→21:35)
[2018-03-21] MEDS: PANTOPRAZOLE 40 MG TABLET (FP) PO SCH (12:16)
--- NOTE | 2018-03-21 12:18 | PN ---
Progress Note, Physician Chief Complaint: abdominal pain and colon mass History of Present Illness: 57 yo male presenting to [facility] ER via private auto complaining of occasional lower left abdominal discomfort. stable post operatively after second laparotomy. Gas and air in the colostomy this morning, We were called to the bedside when the patinet was reporting more abdominal pain. he has been temporized with drainage catheters and rephrostomy but has a left ureteral injury that will require reconstruction. - Current Medication List Current Medications: Active Medications Acetaminophen (Tylenol -) 650 mg PO Q4H PRN PRN Reason: FEVER Last Admin: 03/20/18 13:44 Dose: 650 mg Amino Acids (Prosource No Carb Liquid Pkt) 30 ml PO BID@0800,1730 [facility] Last Admin: 03/21/18 08:02 Dose: 30 ml Apixaban (Eliquis -) 5 mg PO BID [facility] Last Admin: 03/21/18 12:16 Dose: 5 mg Benzocaine/Menthol (Cepacol Lozenge -) 1 each MM DAILY PRN PRN Reason: SORE THROAT Sodium Chloride (Normal Saline -) 1,000 mls @ 125 mls/hr IV ASDIR [facility] Last Admin: 03/21/18 06:06 Dose: 125 mls/hr Levothyroxine Sodium (Synthroid -) 112 mcg PO DAILY@0700 [facility] Last Admin: 03/21/18 06:07 Dose: 112 mcg Ondansetron HCl (Zofran Injection) 8 mg IVPB Q8H PRN PRN Reason: NAUSEA Pantoprazole Sodium (Protonix -) 40 mg PO DAILY [facility] Last Admin: 03/21/18 12:16 Dose: 40 mg Simethicone (Mylicon -) 80 mg PO Q4H PRN PRN Reason: GAS - Objective Vital Signs: Vital Signs Temperature 98.2 F 03/21/18 06:00 Pulse Rate 58 L 03/21/18 06:00 Respiratory Rate 18 03/21/18 06:00 Blood Pressure 110/70 03/21/18 06:00 O2 Sat by Pulse Oximetry (%) 99 03/20/18 21:00 Constitutional: Yes: Well Nourished, No Distress, Calm Eyes: Yes: Conjunctiva Clear, EOM Intact HENT: Yes: Atraumatic, Normocephalic Neck: Yes: Supple, Trachea Midline Cardiovascular: Yes: Regular Rate and Rhythm, S1, S2 Respiratory: Yes: Regular, CTA Bilaterally Gastrointestinal: Yes: Normal Bowel Sounds, Soft. No: Tenderness ...Rectal Exam: Yes: Deferred Genitourinary: No: CVA Tenderness - Left, CVA Tenderness - Right Musculoskeletal: No: Muscle Pain, Muscle Weakness Extremities: No: Cool, Cyanosis Edema: No Peripheral Pulses WNL: Yes Peripheral Pulses: Left Radial: 2+, Right Radial: 2+, Left Doralis Pedis: 2+, Right Dorsalis Pedis: 2+, Left Femoral: 2+, Right Femoral: 2+ Wound/Incision: Yes: Clean/Dry, Dressing Dry and Intact, Unapproximated. No: Draining, Reddened, Bleeding Neurological: Yes: Alert, Oriented Psychiatric: Yes: Alert, Oriented Labs: CBC, BMP 03/21/18 05:30 03/21/18 05:30 INR, PTT INR 1.44 (0.83-1.09) H 03/17/18 05:30 Problem List - Problems (1) Neoplasm of sigmoid colon Assessment/Plan: POD#26 s/p sigmoid colectomy and primary anastomosis (due to sigmoid colon cancer) POD#19 s/p completion left colectomy and amado's (due to perforated diverticulum distal to anatomosis) POD#4 s/p cystoscopy by urology showed likely left ureteral transection. He will require follow up at [facility] ( tertiary care) Dr. Cristian Kennedy MD, urologic oncology and Gerry Meeks MD, colorectal surgery for reimplantation or uteral reconstruction over stent and colostomy reversal. I had family discussion with daughter and all parties are in agreement with the plan. During his 2 month wait until revision surgery he will follow up weekly at [facility] in wound care center wound management. optimize nutrition IVF hydration D/C VAC change to wet-to-dry encourage IS will follow Discharge with abdominal drain, neprostomy, colostomy, plan to reconstruct in 2 months at [facility] Code(s): D49.0 - NEOPLASM OF UNSPECIFIED BEHAVIOR OF DIGESTIVE SYSTEM (2) Sigmoid thickening Code(s): K63.9 - DISEASE OF INTESTINE, UNSPECIFIED (3) Abdominal pain Code(s): R10.9 - UNSPECIFIED ABDOMINAL PAIN Qualifiers: Abdominal location: left lower quadrant Qualified Code(s): R10.32 - Left lower quadrant pain (4) Abnormal colonoscopy Code(s): R93.3 - ABNORMAL FINDINGS ON DX IMAGING OF PRT DIGESTIVE TRACT
--- NOTE | 2018-03-21 15:19 | PN ---
Progress Note, Physician History of Present Illness: PULMONARY ALERT,OOB-CHAIR,-RESP DISTRESS - Current Medication List Current Medications: Active Medications Acetaminophen (Tylenol -) 650 mg PO Q4H PRN PRN Reason: FEVER Last Admin: 03/20/18 13:44 Dose: 650 mg Amino Acids (Prosource No Carb Liquid Pkt) 30 ml PO BID@0800,1730 [facility] Last Admin: 03/21/18 08:02 Dose: 30 ml Apixaban (Eliquis -) 5 mg PO BID [facility] Last Admin: 03/21/18 12:16 Dose: 5 mg Benzocaine/Menthol (Cepacol Lozenge -) 1 each MM DAILY PRN PRN Reason: SORE THROAT Sodium Chloride (Normal Saline -) 1,000 mls @ 125 mls/hr IV ASDIR [facility] Last Admin: 03/21/18 06:06 Dose: 125 mls/hr Levothyroxine Sodium (Synthroid -) 112 mcg PO DAILY@0700 [facility] Last Admin: 03/21/18 06:07 Dose: 112 mcg Ondansetron HCl (Zofran Injection) 8 mg IVPB Q8H PRN PRN Reason: NAUSEA Pantoprazole Sodium (Protonix -) 40 mg PO DAILY [facility] Last Admin: 03/21/18 12:16 Dose: 40 mg Simethicone (Mylicon -) 80 mg PO Q4H PRN PRN Reason: GAS - Objective Vital Signs: Vital Signs Temperature 98.5 F 03/21/18 14:00 Pulse Rate 79 03/21/18 14:00 Respiratory Rate 17 03/21/18 14:00 Blood Pressure 117/83 03/21/18 14:00 O2 Sat by Pulse Oximetry (%) 99 03/20/18 21:00 Constitutional: Yes: Well Nourished, Calm Eyes: Yes: WNL HENT: Yes: WNL Neck: Yes: WNL Cardiovascular: Yes: Regular Rate and Rhythm, S1, S2 Respiratory: Yes: Diminished Gastrointestinal: Yes: Normal Bowel Sounds, Soft Extremities: Yes: WNL Edema: No Labs: CBC, BMP 03/21/18 05:30 03/21/18 05:30 INR, PTT INR 1.44 (0.83-1.09) H 03/17/18 05:30 Problem List - Problems (1) DVT (deep venous thrombosis) Code(s): I82.409 - ACUTE EMBOLISM AND THOMBOS UNSP DEEP VN UNSP LOWER EXTREMITY (2) Afib Code(s): I48.91 - UNSPECIFIED ATRIAL FIBRILLATION (3) Anemia Code(s): D64.9 - ANEMIA, UNSPECIFIED (4) Left ureteral injury Code(s): S37.10XA - UNSPECIFIED INJURY OF URETER, INITIAL ENCOUNTER (5) Neoplasm of sigmoid colon Code(s): D49.0 - NEOPLASM OF UNSPECIFIED BEHAVIOR OF DIGESTIVE SYSTEM (6) Pulmonary emboli Code(s): I26.99 - OTHER PULMONARY EMBOLISM WITHOUT ACUTE COR PULMONALE Assessment/Plan ASSESSMENT AND PLAN: Colon CA S/P Sigmoid Colectomy 02/14 Post op Fecal Peritonitis/Perforated Diverticulum S/P ex-lap/abdominal washout/Left Colectomy/End Colostomy Paroxysmal Atrial Fibrillation s/p Acute Hypoxic Respiratory Failure Left Ureteral Leak s/p Nephrostomy placement Intra-abdominal Abscess s/p IR drainage Septic Shock resolved +Troponins likely Demand Ischemia Hypothyroidism DVT/PE LIKELY PROVOKED - incentive spirometry - PO as tolerated - O2 to keep Spo2 >90 - Eliquis - IVF DR FRIEND
--- NOTE | 2018-03-21 18:01 | PN ---
Progress Note, Physician History of Present Illness: stable no new issues - Current Medication List Current Medications: Active Medications Acetaminophen (Tylenol -) 650 mg PO Q4H PRN PRN Reason: FEVER Last Admin: 03/20/18 13:44 Dose: 650 mg Amino Acids (Prosource No Carb Liquid Pkt) 30 ml PO BID@0800,1730 [facility] Last Admin: 03/21/18 17:09 Dose: 30 ml Apixaban (Eliquis -) 5 mg PO BID [facility] Last Admin: 03/21/18 12:16 Dose: 5 mg Benzocaine/Menthol (Cepacol Lozenge -) 1 each MM DAILY PRN PRN Reason: SORE THROAT Sodium Chloride (Normal Saline -) 1,000 mls @ 100 mls/hr IV ASDIR [facility] Last Admin: 03/21/18 17:10 Dose: 100 mls/hr Levothyroxine Sodium (Synthroid -) 112 mcg PO DAILY@0700 [facility] Last Admin: 03/21/18 06:07 Dose: 112 mcg Ondansetron HCl (Zofran Injection) 8 mg IVPB Q8H PRN PRN Reason: NAUSEA Pantoprazole Sodium (Protonix -) 40 mg PO DAILY [facility] Last Admin: 03/21/18 12:16 Dose: 40 mg Simethicone (Mylicon -) 80 mg PO Q4H PRN PRN Reason: GAS - Objective Vital Signs: Vital Signs Temperature 98.5 F 03/21/18 14:00 Pulse Rate 80 03/21/18 17:33 Respiratory Rate 18 03/21/18 17:33 Blood Pressure 120/60 03/21/18 17:33 O2 Sat by Pulse Oximetry (%) 99 03/20/18 21:00 Constitutional: Yes: No Distress, Calm Cardiovascular: Yes: Regular Rate and Rhythm Respiratory: Yes: Regular, CTA Bilaterally Gastrointestinal: Yes: Normal Bowel Sounds, Soft Genitourinary: Yes: Other (urostomy and ext nephrostomy in place) Musculoskeletal: Yes: WNL Extremities: Yes: WNL Neurological: Yes: Alert, Oriented Psychiatric: Yes: Alert, Oriented Labs: CBC, BMP 03/21/18 05:30 03/21/18 05:30 INR, PTT INR 1.44 (0.83-1.09) H 03/17/18 05:30 Assessment/Plan Problem List - Problems (1) Neoplasm of sigmoid colon Code(s): D49.0 - NEOPLASM OF UNSPECIFIED BEHAVIOR OF DIGESTIVE SYSTEM (2) Sigmoid thickening Code(s): K63.9 - DISEASE OF INTESTINE, UNSPECIFIED (3) Abdominal pain Code(s): R10.9 - UNSPECIFIED ABDOMINAL PAIN Qualifiers: Abdominal location: left lower quadrant Qualified Code(s): R10.32 - Left lower quadrant pain (4) Abnormal colonoscopy Code(s): R93.3 - ABNORMAL FINDINGS ON DX IMAGING OF PRT DIGESTIVE TRACT fever abd distension DVT ? pe ureteral tear left s/p ext nephrostomy plan continue current mgmt rest as per the team final plan awaited nutrition
[2018-03-22] MEDS: SODIUM CHLORIDE 1,000 ML IV SCH ×3 (03:40→21:34)
[2018-03-22] MEDS: LEVOTHYROXINE NA 112 MCG TABLET (FP) PO SCH (06:04)
[2018-03-22 06:48] LABS: HEMATOCRIT 29.2 % (35.4-49); HEMOGLOBIN 9.3 GM/dL (11.7-16.9); MCH 26.5 pg (25.7-33.7); MEAN PLT VOLUME 6.3 fl (7.5-11.1); PLATELET COUNT 365 K/MM3 (134-434); RBC 3.51 M/mm3 (4.00-5.60); RDW 19.4 % (11.9-15.9); WHITE BLOOD COUNT 4.5 K/mm3 (4.0-10.0)
[2018-03-22 07:46] LABS: ALBUMIN 2.4 g/dl (3.4-5.0); ALK PHOS 113 U/L (45-117); ANION GAP 7 MMOL/L (8-16); BILIRUBIN,TOTAL 0.3 mg/dL (0.2-1); BLOOD UREA NITROGEN 8 mg/dL (7-18); CALCIUM 7.9 mg/dL (8.5-10.1); CHLORIDE 106 mmol/L (98-107); CO2 27 mmol/L (21-32); CREATININE 0.5 mg/dL (0.55-1.3); GLUCOSE,RANDOM 88 mg/dL (74-106); POTASSIUM 3.8 mmol/L (3.5-5.1); SGOT/AST 10 U/L (15-37); SGPT/ALT 24 U/L (13-61); SODIUM 141 mmol/L (136-145); TOT PROT 6.2 g/dl (6.4-8.2)
[2018-03-22] MEDS: AMINO ACIDS/PROTEIN HYDROLYS 30 ML LIQUID.PKT PO SCH ×2 (08:23→17:16)
--- NOTE | 2018-03-22 09:39 | CON.PSL ---
Psychology Consult Consult Specialty:: Clinical Psychology History Provided By: Patient, Medical Record Limitations to Obtaining History: Language Barrier Current Medications: Active Medications Acetaminophen (Tylenol -) 650 mg PO Q4H PRN PRN Reason: FEVER Last Admin: 03/20/18 13:44 Dose: 650 mg Amino Acids (Prosource No Carb Liquid Pkt) 30 ml PO BID@0800,1730 [facility] Last Admin: 03/22/18 08:23 Dose: 30 ml Apixaban (Eliquis -) 5 mg PO BID [facility] Last Admin: 03/21/18 21:35 Dose: 5 mg Benzocaine/Menthol (Cepacol Lozenge -) 1 each MM DAILY PRN PRN Reason: SORE THROAT Sodium Chloride (Normal Saline -) 1,000 mls @ 100 mls/hr IV ASDIR [facility] Last Admin: 03/22/18 03:40 Dose: 100 mls/hr Levothyroxine Sodium (Synthroid -) 112 mcg PO DAILY@0700 [facility] Last Admin: 03/22/18 06:04 Dose: 112 mcg Ondansetron HCl (Zofran Injection) 8 mg IVPB Q8H PRN PRN Reason: NAUSEA Pantoprazole Sodium (Protonix -) 40 mg PO DAILY [facility] Last Admin: 03/21/18 12:16 Dose: 40 mg Simethicone (Mylicon -) 80 mg PO Q4H PRN PRN Reason: GAS Allergies: Allergies Allergy/AdvReac Type Severity Reaction Status Date / Time No Known Allergies Allergy Verified 02/13/18 09:20 Does patient have pain?: No Hx Alcohol Use: No Hx Substance Use: No Hx Substance Use Treatment: No - Family History Family History: Unremarkable Current Medical Exam-Psy Orientation: Time, Person, Place Immediate Term Memory: 3 Expressive: Coherent Hallucinations: Absent Thought Process: Intact Depression: Mild Hopelessness: No Loss of Interest: No Danger to Self and Others: No Sleep: Well Appetite: Good [employer] Sevens Intact: No (He was able to spell Deejay backwards.) Repeats 3 words told earlier: 0/3 Support System: Child/Children (His daughter visits often.) Leisure activities: With Family Problem List - Problem (1) Depressed Code(s): F32.9 - MAJOR DEPRESSIVE DISORDER, SINGLE EPISODE, UNSPECIFIED Qualifiers: Major depression recurrence: single episode Active/Remission status: in partial remission Assessment/Plan The patient was alert and cooperative throughout the examination. In spite of his dominant language being [place], he was engaging and tried hard to understand and answer questions posed to him. He denied anxiety and depression was said not to be severe. The patient exhibited a positive attitude and was looking forward to his rehabilitation. He is said to be discharged to a facility today. He indicated an interest in seeing me again for psychotherapeutic intervention upon his return to the [facility]. Thank you for the kind referral.
--- NOTE | 2018-03-22 10:24 | PN ---
Progress Note, Physician Chief Complaint: abdominal pain and colon mass History of Present Illness: 57 yo male presenting to [facility] ER via private auto complaining of occasional lower left abdominal discomfort. stable post operatively after second laparotomy. Gas and air in the colostomy this morning, We were called to the bedside when the patinet was reporting more abdominal pain. he has been temporized with drainage catheters and rephrostomy but has a left ureteral injury that will require reconstruction. - Current Medication List Current Medications: Active Medications Acetaminophen (Tylenol -) 650 mg PO Q4H PRN PRN Reason: FEVER Last Admin: 03/20/18 13:44 Dose: 650 mg Amino Acids (Prosource No Carb Liquid Pkt) 30 ml PO BID@0800,1730 [facility] Last Admin: 03/22/18 08:23 Dose: 30 ml Apixaban (Eliquis -) 5 mg PO BID [facility] Last Admin: 03/21/18 21:35 Dose: 5 mg Benzocaine/Menthol (Cepacol Lozenge -) 1 each MM DAILY PRN PRN Reason: SORE THROAT Sodium Chloride (Normal Saline -) 1,000 mls @ 100 mls/hr IV ASDIR [facility] Last Admin: 03/22/18 03:40 Dose: 100 mls/hr Levothyroxine Sodium (Synthroid -) 112 mcg PO DAILY@0700 [facility] Last Admin: 03/22/18 06:04 Dose: 112 mcg Ondansetron HCl (Zofran Injection) 8 mg IVPB Q8H PRN PRN Reason: NAUSEA Pantoprazole Sodium (Protonix -) 40 mg PO DAILY [facility] Last Admin: 03/21/18 12:16 Dose: 40 mg Simethicone (Mylicon -) 80 mg PO Q4H PRN PRN Reason: GAS - Objective Vital Signs: Vital Signs Temperature 98.6 F 03/22/18 06:00 Pulse Rate 58 L 03/22/18 06:00 Respiratory Rate 18 03/22/18 06:00 Blood Pressure 106/68 03/22/18 06:00 O2 Sat by Pulse Oximetry (%) 97 03/21/18 21:00 Vital Signs Period Temp Pulse Resp BP Sys/Cavanaugh Pulse Ox Last 24 Hr 98.1 F-98.7 F 58-80 -18 106-120/60-83 97 Intake & Output 1203/22/18 03/22/18 23:59 07:59 15:59 Intake Total 1200 Output Total 250 1560 Balance -250 -360 Weight 158 lb 1 oz 162 lb Intake: IV 1200 Normal Saline - 1,000 ml 1200 @ 100 mls/hr IV ASDIR [facility] Rx#:[id number] Output: Drainage 60 Left Lateral Abdomen 60 Urine 250 1500 Left Nephrostomy 250 900 Void 600 Other: Voiding Method Urinal Body Mass Index (BMI) 28.1 Weight Measurement Method Built in Bedscale Wheelchair Constitutional: Yes: No Distress, Calm, Thin Eyes: Yes: Conjunctiva Clear, EOM Intact HENT: Yes: Atraumatic, Normocephalic Neck: Yes: Supple, Trachea Midline Cardiovascular: Yes: Regular Rate and Rhythm, S1, S2 Respiratory: Yes: Regular, CTA Bilaterally Gastrointestinal: Yes: Normal Bowel Sounds, Soft. No: Tenderness ...Rectal Exam: Yes: Deferred Genitourinary: No: CVA Tenderness - Left, CVA Tenderness - Right Musculoskeletal: No: Muscle Pain, Muscle Weakness Extremities: No: Cool, Cyanosis Edema: No Peripheral Pulses WNL: Yes Peripheral Pulses: Left Radial: 2+, Right Radial: 2+, Left Doralis Pedis: 2+, Right Dorsalis Pedis: 2+, Left Femoral: 2+, Right Femoral: 2+ Wound/Incision: Yes: Clean/Dry, Unapproximated Neurological: Yes: Alert, Oriented Psychiatric: Yes: Alert, Oriented Labs: CBC, BMP 03/22/18 06:30 03/22/18 06:30 INR, PTT INR 1.44 (0.83-1.09) H 03/17/18 05:30 Problem List - Problems (1) Neoplasm of sigmoid colon Assessment/Plan: POD#26 s/p sigmoid colectomy and primary anastomosis (due to sigmoid colon cancer) POD#19 s/p completion left colectomy and amado's (due to perforated diverticulum distal to anatomosis) POD#4 s/p cystoscopy by urology showed likely left ureteral transection. He will require follow up at [facility] ( [facility] care) Dr. Cristian Kennedy MD, urologic oncology and Gerry Meeks MD, colorectal surgery for reimplantation or uteral reconstruction over stent and colostomy reversal. I had family discussion with daughter and all parties are in agreement with the plan. During his 2 month wait until revision surgery he will follow up weekly at [facility] in wound care center wound management. optimize nutrition IVF hydration D/C VAC chneg to wet-to-dry encourage IS will follow Discharge with abdominal drain, neprostomy, colostomy, plan to reconstruct in 2 months at [facility] Code(s): D49.0 - NEOPLASM OF UNSPECIFIED BEHAVIOR OF DIGESTIVE SYSTEM (2) Sigmoid thickening Code(s): K63.9 - DISEASE OF INTESTINE, UNSPECIFIED (3) Abdominal pain Code(s): R10.9 - UNSPECIFIED ABDOMINAL PAIN Qualifiers: Abdominal location: left lower quadrant Qualified Code(s): R10.32 - Left lower quadrant pain (4) Abnormal colonoscopy Code(s): R93.3 - ABNORMAL FINDINGS ON DX IMAGING OF PRT DIGESTIVE TRACT
[2018-03-22] MEDS: PANTOPRAZOLE 40 MG TABLET (FP) PO SCH (10:50)
[2018-03-22] MEDS: APIXABAN 5 MG TABLET PO SCH ×2 (10:50→21:33)
--- NOTE | 2018-03-22 12:34 | DS ---
Physical Exam: SUBJECTIVE: Patient seen and examined at bedside. Denies any acute complaints this morning. Denies abdominal pain. Urinating well without dysuria or hematuria. Left nephrostomy tube, and uroma drainage catheter draining well. OBJECTIVE: Vital Signs Period Temp Pulse Resp BP Sys/Cavanaugh Pulse Ox Last 24 Hr 98.1 F-98.7 F 58-87 17-18 103-120/60-83 97 PHYSICAL EXAM GENERAL: The patient is awake, alert, and fully oriented, in no acute distress. HEAD: Normal with no signs of trauma. EYES: PERRL, extraocular movements intact, sclera anicteric, conjunctiva clear. ENT: Ears normal, nares patent, oropharynx clear without exudates, moist mucous membranes. NECK: Trachea midline, full range of motion, supple. LUNGS: Breath sounds equal, clear to auscultation bilaterally, no wheezes, no crackles, no accessory muscle use. HEART: Regular rate and rhythm, S1, S2 without murmur, rub or gallop. ABDOMEN: Soft, nontender, nondistended, normoactive bowel sounds, no guarding, no rebound, no hepatosplenomegaly, no masses. Vertical midline abdominal wound, clean, dry, without erythema, or drainage. Colostomy bag with soft light brown stool. Nephrostomy tube in place, uroma catheter draining well. EXTREMITIES: 2+ radial and dorsalis pedis pulses B/L. Warm, well-perfused, no edema. NEUROLOGICAL: Cranial nerves II through XII grossly intact. Normal speech. PSYCH: Normal mood, normal affect. SKIN: Warm, dry, normal turgor, no rashes or lesions noted. LABS Laboratory Results - last 24 hr 03/22/18 03/22/18 06:30 06:30 WBC 4.5 RBC 3.51 L Hgb 9.3 L Hct 29.2 L MCV 83.0 MCH 26.5 MCHC 32.0 RDW 19.4 H Plt Count 365 MPV 6.3 L Sodium 141 Potassium 3.8 Chloride 106 Carbon Dioxide 27 Anion Gap 7 L BUN 8 Creatinine 0.5 L Creat Clearance w eGFR > 60 Random Glucose 88 Calcium 7.9 L Total Bilirubin 0.3 AST 10 L ALT 24 Alkaline Phosphatase 113 Total Protein 6.2 L Albumin 2.4 L HOSPITAL COURSE: Date of Admission:02/13/18 Date of Discharge: 03/22/18 Patient is a 57 year old male with history of Afib with RVR who presented with complaint of abdominal pain. He was diagnosed with stage 1 colon cancer and underwent sigmoid colectomy and primary anastomosis due to sigmoid colon mass noted on prior colonoscopy, Jung's procedure, uroma draining catheter, and nephrostomy tube. Pathology noted 4.3 cm mass, moderately differentiated, invading muscularis propria, without lymphovascular invasion noted. Rapid response was called while patient in CT scan, found to be in rapid Afib, treated with cardizem and admitted to ICU. Treated initially with Zosyn, for abscess culture growing E. coli, Staph aureus, and Bacteroides fragilis. Antibiotics stopped with ID recommendation after subsequent negative cultures. Patient experienced post-operative fevers, and abdominal pain. Underwent exploratory laparotomy, abdominal washout, completion of left colectomy, and end colostomy creation. Urine was noted from the abdomen, and CT urogram showed left sided ureteral blush of contrast, suggestive of left ureteral extravasation. Evaluated by urology who arranged for left percutaneous nephrostomy tube placement. Anterograde stent postponed after evaluation with anesthesia. Rapid response was called where uroma was noted, and pigtail draining catheter placed by IR. Troponinemia noted, likely secondary to sepsis and demand ischemia. Nephrostomy tube was changed by IR due to blood tinged discharge. Discharged for rehab at [facility]. Provided referral to follow up with [facility] urologic oncology, colorectal surgery for reconstruction within two months, wound care clinic, urology, hematology/ oncology, general surgery. Discharged to continue Prosource, Eliquis, Levothyroxine. Minutes to complete discharge: 45 Discharge Summary Reason For Visit: ABNORMAL COLONOSCOPY, ABDOMINAL PAIN Current Active Problems Abdominal pain (Acute) Abnormal colonoscopy (Acute) Afib (Acute) Anemia (Acute) DVT (deep venous thrombosis) (Acute) Depressed (Acute) Edema (Acute) Hypothyroid (Acute) Left ureteral injury (Acute) Leukocytosis (Acute) Neoplasm of sigmoid colon (Acute) Pulmonary emboli (Acute) Sigmoid thickening (Acute) Condition: Stable - Instructions Diet, Activity, Other Instructions: Hospital Course: You were admitted to the hospital for abdominal discomfort. A prior colonoscopy was reportedly abnormal and revealed a mass. You underwent sigmoid colectomy, Jung's procedure, primary anastomosis, in addition to left percutaneous nephrostomy tube placement, and uroma draining catheter. You are being discharged to [facility] for rehab. Discharge information Make sure to drink plenty of fluids every day, and remain well hydrated. Continue taking your Synthroid 112mcg daily Continue taking Eliquis 5mg twice a day to prevent any blood clots. You will follow up with director employee safety and health/ oncologist (Dr. Agarwal) within one week of discharge. You will follow up with Dr. Cristian Kennedy MD, urologic oncology and Gerry Meeks MD, colorectal surgery at [facility]. You will require reconstructive surgery in two months. You will follow up with urologist Dr. Guerrero. You will follow up with general surgeon Dr. Ventura within one week of discharge. Maintain your wounds clean with wet-to-dry dressings. Instructions have been provided within the discharge instructions. In addition, you will follow up weekly with the wound care clinic to ensure your surgical wounds are healing appropriately. Please see instructions below to confirm the appointment for Tuesday03/30/2018 at 1PM. Please return to the Emergency Department if you experience any discharge, or bleeding from your wounds, fevers, chills, shortness of breath, chest pain, palpitations, abdominal pain, nausea, vomiting, redness or warmth at your wound sites. Postoperative instructions: You had a sigmoid colectomy on 02/14/[address] Horacio Ventura of [facility]. Activity: Resume your usual activities gradually, but no heavy exertion or lifting more than 10-15 pounds for 4-6 weeks. Eat lightly at first, but advance to your usual diet as tolerated. Pain: For pain, you may use Tylenol (acetaminophen) 1-2 pills every 6 hours each as needed. If you are prescribed a Tylenol/narcotic combination for severe pain, use it instead of plain Tylenol as needed and switch back when your pain starts decreasing. Do not take more than 4000 mg of acetaminophen in a day. Take medications as prescribed or indicated on the labeling. Follow-up: Call [phone] to confirm your Wound appointment, 03/30 at 1pm . Clinic is held in the WOUND CARE CENTER 5th floor [address] [facility]. Call the office if you have: * increasing pain not responsive to pain medication * fever of 101F or higher * unusual or increasing bleeding or drainage from wounds * increasing redness or swelling at wound sites Also, see your primary medical doctor within 1-2 weeks. Referrals: Brent Burnett [Other] (Urologic Oncology) Iraida Agarwal MD [Staff Physician] - Horacio Ventura MD [Staff Physician] - Evin Guerrero MD [Staff Physician] - Jeanna Mak [Other] (Colorectal surgery) Disposition: LONGTERM FACILITY - Home Medications Comprehensive Discharge Medication List: Ambulatory Orders Apixaban [Eliquis -] 5 mg PO BID 30 Days #60 tablet 03/21/18 Levothyroxine [Synthroid -] 112 mcg PO DAILY@0700 30 Days #30 tablet 03/21/18 Amino Acids/Protein Hydrolys [Prosource No Carb Liquid Pkt] 30 ml PO BID 30 Days #60 liquid.pkt 03/22/18 Colostomy Bags [Closed-End Pouch] 1 each MC PRN #30 each 03/22/18 This patient is new to me today: No Emergency Visit: Yes ED Registration Date: 02/13/18 Care time: The patient presented to the Emergency Department on the above date and was hospitalized for further evaluation of their emergent condition. Critical Care patient: No - Discharge Referral Referred to [facility] Med P.C.: No
--- NOTE | 2018-03-22 14:15 | PN ---
Progress Note, Physician History of Present Illness: stable no new issues - Current Medication List Current Medications: Active Medications Acetaminophen (Tylenol -) 650 mg PO Q4H PRN PRN Reason: FEVER Last Admin: 03/20/18 13:44 Dose: 650 mg Amino Acids (Prosource No Carb Liquid Pkt) 30 ml PO BID@0800,1730 [facility] Last Admin: 03/22/18 08:23 Dose: 30 ml Apixaban (Eliquis -) 5 mg PO BID [facility] Last Admin: 03/22/18 10:50 Dose: 5 mg Benzocaine/Menthol (Cepacol Lozenge -) 1 each MM DAILY PRN PRN Reason: SORE THROAT Sodium Chloride (Normal Saline -) 1,000 mls @ 100 mls/hr IV ASDIR [facility] Last Admin: 03/22/18 03:40 Dose: 100 mls/hr Levothyroxine Sodium (Synthroid -) 112 mcg PO DAILY@0700 [facility] Last Admin: 03/22/18 06:04 Dose: 112 mcg Ondansetron HCl (Zofran Injection) 8 mg IVPB Q8H PRN PRN Reason: NAUSEA Pantoprazole Sodium (Protonix -) 40 mg PO DAILY [facility] Last Admin: 03/22/18 10:50 Dose: 40 mg Simethicone (Mylicon -) 80 mg PO Q4H PRN PRN Reason: GAS - Objective Vital Signs: Vital Signs Temperature 98.6 F 03/22/18 06:00 Pulse Rate 87 03/22/18 10:00 Respiratory Rate 18 03/22/18 10:00 Blood Pressure 103/66 03/22/18 10:00 O2 Sat by Pulse Oximetry (%) 97 03/21/18 21:00 Constitutional: Yes: No Distress, Calm Cardiovascular: Yes: Regular Rate and Rhythm Respiratory: Yes: Regular, CTA Bilaterally Gastrointestinal: Yes: Normal Bowel Sounds, Soft Genitourinary: Yes: Other (ext nephrostomy tube and urostomy in place) Musculoskeletal: Yes: WNL Extremities: Yes: WNL Neurological: Yes: Alert, Oriented Psychiatric: Yes: Alert, Oriented Labs: CBC, BMP 03/22/18 06:30 03/22/18 06:30 INR, PTT INR 1.44 (0.83-1.09) H 03/17/18 05:30 Assessment/Plan Problem List - Problems (1) Neoplasm of sigmoid colon Code(s): D49.0 - NEOPLASM OF UNSPECIFIED BEHAVIOR OF DIGESTIVE SYSTEM (2) Sigmoid thickening Code(s): K63.9 - DISEASE OF INTESTINE, UNSPECIFIED (3) Abdominal pain Code(s): R10.9 - UNSPECIFIED ABDOMINAL PAIN Qualifiers: Abdominal location: left lower quadrant Qualified Code(s): R10.32 - Left lower quadrant pain (4) Abnormal colonoscopy Code(s): R93.3 - ABNORMAL FINDINGS ON DX IMAGING OF PRT DIGESTIVE TRACT fever abd distension DVT ? pe ureteral tear left s/p ext nephrostomy plan continue current mgmt rest as per the team final plan awaited nutrition care of the tubes
--- NOTE | 2018-03-22 15:28 | PN ---
Teaching Attending Note Name of Resident: Cameron Gusman ATTENDING PHYSICIAN STATEMENT I saw and evaluated the patient. I reviewed the resident's note and discussed the case with the resident. I agree with the resident's findings and plan as documented with exceptions below. SUBJECTIVE: Patient seen and examined. Denies any nausea, vomiting, abdominal pain, urinary symptoms. Feeling well, better spirits, eager to go to rehab. OBJECTIVE: Vital Signs Period Temp Pulse Resp BP Sys/Cavanaugh Pulse Ox Last 24 Hr 98.1 F-98.7 F 58-87 -18 103-120/60-68 97 Intake & Output 03/19/18 03/20/18 03/21/18 03/22/18 23:59 23:59 23:59 23:59 Intake Total 5046 4350 3300 1600 Output Total 4065 3215 2880 2060 Balance 981 1135 420 -460 Weight 162 lb 2 oz 159 lb 9.6 oz 162 lb General: sitting in chair in no acute distress Chest: CTAB, no rales or wheezing Abdomen:Soft, NT throughout, surgical dressing clean, positive bowel sounds, no voluntary or involuntary guarding or rigidity, left colostomy with formed stool , left nephrostomy with minimal sanguinous discharge, left pig tail with yellowish discharge Extremities: no edema Home Medications Medication Instructions Recorded Apixaban [Eliquis -] 5 mg PO BID 30 Days #60 tablet 03/21/18 Levothyroxine [Synthroid -] 112 mcg PO DAILY@0700 30 Days #30 03/21/18 tablet Amino Acids/Protein Hydrolys 30 ml PO BID 30 Days #60 liquid.pkt 03/22/18 [Prosource No Carb Liquid Pkt] Colostomy Bags [Closed-End Pouch] 1 each PRN #30 each 03/22/18 Laboratory Results - last 24 hr 03/22/18 03/22/18 06:30 06:30 WBC 4.5 RBC 3.51 L Hgb 9.3 L Hct 29.2 L MCV 83.0 MCH 26.5 MCHC 32.0 RDW 19.4 H Plt Count 365 MPV 6.3 L Sodium 141 Potassium 3.8 Chloride 106 Carbon Dioxide 27 Anion Gap 7 L BUN 8 Creatinine 0.5 L Creat Clearance w eGFR > 60 Random Glucose 88 Calcium 7.9 L Total Bilirubin 0.3 AST 10 L ALT 24 Alkaline Phosphatase 113 Total Protein 6.2 L Albumin 2.4 L Microbiology 03/21/18 10:30 Nephrostomy Tube Drainage Gram Stain - Final 03/21/18 10:30 Nephrostomy Tube Drainage Body Fluid Culture - Preliminary NO AEROBIC GROWTH, 24 HRS 03/15/18 15:00 Urine - Urostomy Bag Urine Culture - Final NO GROWTH OBTAINED 03/15/18 15:00 Urine - Urine Nephrostomy Tube Left Urine Culture - Final NO GROWTH OBTAINED 03/09/18 07:40 Urine - Urine Nephrostomy Tube Left Urine Culture - Final NO GROWTH OBTAINED 03/02/18 08:40 Blood - Peripheral Venous Blood Culture - Final NO GROWTH AFTER 5 DAYS INCUBATION 03/02/18 08:35 Blood - Peripheral Venous Blood Culture - Final NO GROWTH AFTER 5 DAYS INCUBATION 03/01/18 17:00 Ascites Gram Stain - Final 03/01/18 17:00 Ascites Body Fluid Culture - Final Yeast Like Organism 03/01/18 17:00 Ascites Anaerobic Culture - Final NO ANAEROBES WERE ISOLATED 03/01/18 17:00 Ascites AFB Smear Concentration - Final 03/01/18 17:00 Ascites Mycobacterial Culture - Preliminary 03/02/18 10:00 Urine - Urine Lentz Urine Culture - Final NO GROWTH OBTAINED 03/01/18 17:00 Ascites RADHA Preparation - Preliminary 03/01/18 17:00 Ascites Fungal Culture - Preliminary 02/24/18 14:50 Blood - Peripheral Venous Blood Culture - Final NO GROWTH AFTER 5 DAYS INCUBATION 02/24/18 14:30 Blood - Peripheral Venous Blood Culture - Final NO GROWTH AFTER 5 DAYS INCUBATION 02/22/18 21:40 Blood - Peripheral Venous Blood Culture - Final NO GROWTH AFTER 5 DAYS INCUBATION 02/22/18 20:15 Blood - Peripheral Venous Blood Culture - Final NO GROWTH AFTER 5 DAYS INCUBATION 02/20/18 14:30 Abscess Gram Stain - Final 02/20/18 14:30 Abscess Body Fluid Culture - Final Escherichia Coli Staphylococcus Aureus Yeast Like Organism 02/20/18 14:30 Abscess Anaerobic Culture - Final Bacteroides Fragilis 02/22/18 23:24 Urine - Urine Lentz Urine Culture - Final NO GROWTH OBTAINED 02/17/18 20:00 Blood - Peripheral Venous Blood Culture - Final NO GROWTH AFTER 5 DAYS INCUBATION 02/17/18 17:00 Blood - Peripheral Venous Blood Culture - Final NO GROWTH AFTER 5 DAYS INCUBATION 02/17/18 16:40 Urine - Urine Clean Catch Urine Culture - Final NO GROWTH OBTAINED ASSESSMENT AND PLAN: 57yo M with PMH hypothyroid presenetd to the ER with intermittent LLQ pain with recent colonoscopy with finding suspicious for malignancy. Pt underwent sigmoid colectomy on 02/14 which patient developed pneumoperitoneum and abdominal abscess and underwent ex-lap with abdominal washout and complete L hemicolectomy with Hartmans due to perforated diverticulum on 02/21. Pt went into AFib with RVR during the procedure which he self converted. Course complicated by L uretral injury with Ureteral extravsation seen with PCN tube was placed. SCHOOL BUSINESS ADMINISTRATOR called on 03/01 where pt was found to have a uroma where bedside pigtail placed and patient was transferred to ICU. [facility] at request of patient and family, transferred out of ICU - - Stage 1 colon ca s/p resection and Hartmans- s/p surgeries as stated above with wound vac and colostomy in place. - Sepsis due to Urine leak-s/p pigtail placement bedside by IR draining clear urine. Urology unable to place stent, procedure abandoned. Discussed with Dr. Grubbs. Discussed with Dr. Ventura, case was discussed by him with Dr. Foster, suggests 1 step procedure for ureter/colostomy once active inflammation subsides in 2 months. Will need to follow up at [facility] for reimplantation/ reconstruction of ureter and colostomy reversal in 2 months (Dr. Cristian Kennedy MD, urologic oncology and Gerry Meeks MD, colorectal surgery) Per his discussion with Dr. Hussein, pigtail sutured and secured, ok to ok with current pigtail. Dr. Ventura arranging for outpatient wound care /colorectal surgery and urology follow up. Will follow up on his recs. Left nephrostomy with purulent drainage, cultures neg, IR guided nephrostomy tube change done today. Off abx. Monitor for now. - Abdominal abscess due to perforated diverticulum- s/p Hartmans 02/21. + polymicrobial (E.Coli, B.Fragilis, Yeast) on zosyn and fluconazole. leukocytosis resolved. repeat Cx neg, ID input noted, monitor off abx. - Hypotension - resolved. suspect from significant output. PO intake improved, BP stable, Continue IVF for now. Monitor for recurrent sepsis. - Acute Pulmonary embolism/LLE DVT with right heart strain-Continue eliquis. Will need AC for atleast 6 months of AC. - Troponemia- demand due to sepsis and hypoxia. Trop peaked at 0.86 and trended down. no indication for further monitoring of troponins. echo noted. - PAF- no repeat episodes of afib noted. no further workup at this time - pseudohypocalcemia- Montior ca levels. Left nephrostomy tube changed. Left pigtail functioning. Discussed with Dr. Hussein ri for d/c Discussed with Dr. ventura, outpatient wound care follow up and montefiorre follow up arranged. Needs heme/onc follow up and eliquis. Psychology input noted. Patient in better spirits. SNF bed arranged. patient advised to drink plenty of fluids D/c to SNF today, plan discussed with patient in detail, all questions answered.
[2018-03-23] MEDS: LEVOTHYROXINE NA 112 MCG TABLET (FP) PO SCH (06:16)
--- NOTE | 2018-03-23 08:05 | PN ---
Teaching Attending Note Name of Resident: Cameron Gusman ATTENDING PHYSICIAN STATEMENT I saw and evaluated the patient. I reviewed the resident's note and discussed the case with the resident. I agree with the resident's findings and plan as documented with exceptions below. SUBJECTIVE: Patient seen and examined, doing well, no complaints. OBJECTIVE: Vital Signs Period Temp Pulse Resp BP Sys/Cavanaugh Pulse Ox Last 24 Hr 98.1 F-98.9 F 61-87 18-20 100-114/57-68 94 Intake & Output 03/20/18 03/21/18 03/22/18 03/23/18 23:59 23:59 23:59 23:59 Intake Total 4350 3300 3300 1200 Output Total 3215 2880 3880 1430 Balance 1135 420 -580 -230 Weight 159 lb 9.6 oz 162 lb 163 lb General: sitting in bed in no acute distress Abdomen: soft, NT, wound dressing clean, left colostomy/pigtail and left nephrostomy draining well, no concerns, unchanged exam Active Medications Acetaminophen (Tylenol -) 650 mg PO Q4H PRN PRN Reason: FEVER Last Admin: 03/20/18 13:44 Dose: 650 mg Amino Acids (Prosource No Carb Liquid Pkt) 30 ml PO BID@0800,1730 [facility] Last Admin: 03/22/18 17:16 Dose: 30 ml Apixaban (Eliquis -) 5 mg PO BID [facility] Last Admin: 03/22/18 21:33 Dose: 5 mg Benzocaine/Menthol (Cepacol Lozenge -) 1 each MM DAILY PRN PRN Reason: SORE THROAT Sodium Chloride (Normal Saline -) 1,000 mls @ 100 mls/hr IV ASDIR [facility] Last Admin: 03/22/18 21:34 Dose: 100 mls/hr Levothyroxine Sodium (Synthroid -) 112 mcg PO DAILY@0700 [facility] Last Admin: 03/23/18 06:16 Dose: 112 mcg Ondansetron HCl (Zofran Injection) 8 mg IVPB Q8H PRN PRN Reason: NAUSEA Pantoprazole Sodium (Protonix -) 40 mg PO DAILY [facility] Last Admin: 03/22/18 10:50 Dose: 40 mg Simethicone (Mylicon -) 80 mg PO Q4H PRN PRN Reason: GAS ASSESSMENT AND PLAN: 57yo M with PMH hypothyroid presenetd to the ER with intermittent LLQ pain with recent colonoscopy with finding suspicious for malignancy. Pt underwent sigmoid colectomy on 02/14 which patient developed pneumoperitoneum and abdominal abscess and underwent ex-lap with abdominal washout and complete L hemicolectomy with Hartmans due to perforated diverticulum on 02/21. Pt went into AFib with RVR during the procedure which he self converted. Course complicated by L uretral injury with Ureteral extravsation seen with PCN tube was placed. EVENTS MANAGER called on 03/01 where pt was found to have a uroma where bedside pigtail placed and patient was transferred to ICU. patient care was transferred to [facility] Hospital[facility] service at request of patient and family, transferred out of ICU - - Stage 1 colon ca s/p resection and Hartmans- s/p surgeries as stated above with wound vac and colostomy in place. - Sepsis due to Urine leak-s/p pigtail placement bedside by IR draining clear urine. Urology unable to place stent, procedure abandoned. Discussed with Dr. Grubbs. Discussed with Dr. Ventura, case was discussed by him with Dr. Foster, suggests 1 step procedure for ureter/colostomy once active inflammation subsides in 2 months. Will need to follow up at [facility] for reimplantation/ reconstruction of ureter and colostomy reversal in 2 months (Dr. Cristian Kennedy MD, urologic oncology and Gerry Meeks MD, colorectal surgery) Per his discussion with Dr. Hussein, pigtail sutured and secured, ok to dc with current pigtail. Dr. Ventura arranged for outpatient wound care /colorectal surgery and urology follow up. Will follow up on his recs. Left nephrostomy with purulent drainage, cultures neg, IR guided nephrostomy tube change done 03/21. Off abx. No concerns. - Abdominal abscess due to perforated diverticulum- s/p Hartmans 02/21. + polymicrobial (E.Coli, B.Fragilis, Yeast) on zosyn and fluconazole. leukocytosis resolved. repeat Cx neg, ID input noted, monitor off abx. - Hypotension - resolved. suspect from significant output. PO intake improved, BP stable, Continue IVF for now. Monitor for recurrent sepsis. - Acute Pulmonary embolism/LLE DVT with right heart strain-Continue eliquis. Will need AC for atleast 6 months of AC. - Troponemia- demand due to sepsis and hypoxia. Trop peaked at 0.86 and trended down. no indication for further monitoring of troponins. echo noted. - PAF- no repeat episodes of afib noted. no further workup at this time - pseudohypocalcemia- Montior ca levels. Left nephrostomy tube changed. Left pigtail functioning. Discussed with Dr. Hussein, ok for d/c Discussed with Dr. Ventura, outpatient wound care follow up and montefiorre follow up arranged. Needs heme/onc follow up and eliquis. Psychology input noted. Patient in better spirits. SNF bed arranged. patient advised to drink plenty of fluids D/c to SNF when bed available, awaiting insurance authorization, plan discussed with patient in detail, all questions answered.
[2018-03-23] MEDS: AMINO ACIDS/PROTEIN HYDROLYS 30 ML LIQUID.PKT PO SCH ×2 (08:39→17:59)
--- NOTE | 2018-03-23 09:03 | PN ---
Physical Exam: SUBJECTIVE: Patient seen and examined at bedside this morning. No overnight events. Patient denies acute complaints. Urinating well without dysuria or hematuria. Left nephrostomy tube, and uroma drainage catheter draining well. Patient was discharged yesterday, however is pending insurance authorization for his transfer to [facility] for rehab. OBJECTIVE: Vital Signs Period Temp Pulse Resp BP Sys/Cavanaugh Pulse Ox Last 24 Hr 98.1 F-98.9 F 61-87 18-20 100-114/57-75 94 GENERAL: The patient is awake, alert, and fully oriented, in no acute distress. HEAD: Normal with no signs of trauma. EYES: PERRL, extraocular movements intact, sclera anicteric, conjunctiva clear. ENT: Ears normal, nares patent, oropharynx clear without exudates, moist mucous membranes. NECK: Trachea midline, full range of motion, supple. LUNGS: Breath sounds equal, clear to auscultation bilaterally, no wheezes, no crackles, no accessory muscle use. HEART: Regular rate and rhythm, S1, S2 without murmur, rub or gallop. ABDOMEN: Soft, nontender, nondistended, normoactive bowel sounds, no guarding, no rebound, no hepatosplenomegaly, no masses. Vertical midline abdominal wound, clean, dry, without erythema, or drainage. Colostomy bag with soft light brown stool. Nephrostomy tube in place and draining well, uroma catheter draining well. EXTREMITIES: 2+ radial and dorsalis pedis pulses B/L. Warm, well-perfused, no edema. NEUROLOGICAL: Cranial nerves II through XII grossly intact. Normal speech. PSYCH: Normal mood, normal affect. SKIN: Warm, dry, normal turgor, no rashes or lesions noted. Active Medications Generic Name Dose Route Start Last Admin Trade Name Freq PRN Reason Stop Dose Admin Acetaminophen 650 mg 03/19/18 17:36 03/20/18 13:44 Tylenol - PO 650 mg Q4H PRN Administration FEVER Amino Acids 30 ml 03/20/18 08:00 03/22/18 17:16 Prosource No Carb Liquid Pkt PO 30 ml BID@0800,1730 JERED Administration Apixaban 5 mg 03/19/18 22:00 03/22/18 21:33 Eliquis - PO 5 mg BID JERED Administration Benzocaine/Menthol 1 each 03/19/18 17:36 Cepacol Lozenge - MM DAILY PRN SORE THROAT Sodium Chloride 1,000 mls @ 100 mls/hr 03/21/18 17:00 03/22/18 21:34 Normal Saline - IV 100 mls/hr ASDIR JERED Administration Levothyroxine Sodium 112 mcg 03/20/18 07:00 03/23/18 06:16 Synthroid - PO 112 mcg DAILY@0700 JERED Administration Ondansetron HCl 8 mg 03/19/18 17:36 Zofran Injection IVPB Q8H PRN NAUSEA Pantoprazole Sodium 40 mg 03/20/18 10:00 03/22/18 10:50 Protonix - PO 40 mg DAILY JERED Administration Simethicone 80 mg 03/19/18 17:36 Mylicon - PO Q4H PRN GAS ASSESSMENT/PLAN: Patient is a 57 year old male with history of Afib with RVR, newly diagnosed stage 1 colon cancer, s/p sigmoid colectomy, lemus's procedure, and left sided ureteral extravasation s/p left nephrostomy tube placement and intra- abdominal abscess drainage. Colon cancer -Stage 1. S/P sigmoid colectomy (02/14), Lemus's procedure (02/21) -Colostomy bag functioning, with light brown soft stool -Oncology recommendations appreciated. Patient will follow up with oncology as outpatient. -Psychiatry evaluation (Dr. Zavala) appreciated. GI abscess -Initial abscess cultures grew lactose fermenting gram negative bacilli, coagulase positive staph (02/20) -Most recent blood cultures (03/02) negative -Zosyn discontinued as per ID (Dr. Perry) -Nephrostomy tube drainage cultures negative for growth. Left ureteral extravasation -S/P nephrostomy tube placement (02/27) and IR uroma drainage (03/01) -Nephrostomy tube changed 03/21 by IR. -Patient urinating clear light yellow urine -Patient to follow up at [facility] with Dr. Foster, and Dr. Garrett in two months for reconstructive surgery. Pulmonary embolism, Left DVT -CTA shows PE in right upper and middle lobe of lung -US of left lower extremity confirms left femoral DVT -Cardiac ECHO shows right heart strain -Eliquis 5mg PO BID- will continue for 6 months Paroxysmal Afib -Currently rate controlled. -Patient is on Eliquis Hypothyroidism -Levothyroxine 112mcg PO daily FEN -IV NS at 100mL/ hour -Follow CMP -Sodium controlled diet Prophylaxis -Protonix 40mg PO daily -Patient is on Eliquis 5mg PO daily -SCDs b/l lower extremities Disposition -Patient is pending D/C to [facility] for rehab. Visit type - Emergency Visit Emergency Visit: Yes ED Registration Date: 02/13/18 Care time: The patient presented to the Emergency Department on the above date and was hospitalized for further evaluation of their emergent condition. - New Patient This patient is new to me today: No - Critical Care Critical Care patient: No - Discharge Referral Referred to [facility] Med P.C.: No
[2018-03-23] MEDS: PANTOPRAZOLE 40 MG TABLET (FP) PO SCH (09:40)
[2018-03-23] MEDS: SODIUM CHLORIDE 1,000 ML IV SCH ×2 (09:40→18:00)
[2018-03-23] MEDS: APIXABAN 5 MG TABLET PO SCH (09:40)
--- NOTE | 2018-03-23 11:15 | PN ---
Progress Note (short form) - Note Progress Note: PULMONARY Denies shortness of breath or chest pain. Vital Signs Period Temp Pulse Resp BP Sys/Cavanaugh Pulse Ox Last 24 Hr 98.1 F-98.9 F 61-74 18-20 100-114/57-75 94 Gen: NAD at rest Heart: RRR Lung: decreased breath sounds at the bases Abd: soft, nontender, +ostomy, drains Ext: no edema CBC, BMP 03/22/18 06:30 03/22/18 06:30 Active Medications Acetaminophen (Tylenol -) 650 mg PO Q4H PRN PRN Reason: FEVER Last Admin: 03/20/18 13:44 Dose: 650 mg Amino Acids (Prosource No Carb Liquid Pkt) 30 ml PO BID@0800,1730 [facility] Last Admin: 03/23/18 08:39 Dose: 30 ml Apixaban (Eliquis -) 5 mg PO BID [facility] Last Admin: 03/23/18 09:40 Dose: 5 mg Benzocaine/Menthol (Cepacol Lozenge -) 1 each MM DAILY PRN PRN Reason: SORE THROAT Sodium Chloride (Normal Saline -) 1,000 mls @ 100 mls/hr IV ASDIR [facility] Last Admin: 03/23/18 09:40 Dose: 100 mls/hr Levothyroxine Sodium (Synthroid -) 112 mcg PO DAILY@0700 [facility] Last Admin: 03/23/18 06:16 Dose: 112 mcg Ondansetron HCl (Zofran Injection) 8 mg IVPB Q8H PRN PRN Reason: NAUSEA Pantoprazole Sodium (Protonix -) 40 mg PO DAILY [facility] Last Admin: 03/23/18 09:40 Dose: 40 mg Simethicone (Mylicon -) 80 mg PO Q4H PRN PRN Reason: GAS A/P Colon CA S/P Sigmoid Colectomy 02/14 Post op Fecal Peritonitis/Perforated Diverticulum S/P ex-lap/abdominal washout/Left Colectomy/End Colostomy Paroxysmal Atrial Fibrillation s/p Acute Hypoxic Respiratory Failure Left Ureteral Leak s/p Nephrostomy placement Intra-abdominal Abscess s/p IR drainage Septic Shock resolved +Troponins likely Demand Ischemia Hypothyroidism Acute DVT/PE Likely Provoked - continue anticoagulation - incentive spirometry - PO as tolerated - O2 to keep Spo2 >90 - monitor drain output - rehab/PT - d/c planning in progress
--- NOTE | 2018-03-23 14:09 | PN ---
Progress Note, Physician History of Present Illness: stable no new issues - Current Medication List Current Medications: Active Medications Acetaminophen (Tylenol -) 650 mg PO Q4H PRN PRN Reason: FEVER Last Admin: 03/20/18 13:44 Dose: 650 mg Amino Acids (Prosource No Carb Liquid Pkt) 30 ml PO BID@0800,1730 [facility] Last Admin: 03/23/18 08:39 Dose: 30 ml Apixaban (Eliquis -) 5 mg PO BID [facility] Last Admin: 03/23/18 09:40 Dose: 5 mg Benzocaine/Menthol (Cepacol Lozenge -) 1 each MM DAILY PRN PRN Reason: SORE THROAT Sodium Chloride (Normal Saline -) 1,000 mls @ 100 mls/hr IV ASDIR [facility] Last Admin: 03/23/18 09:40 Dose: 100 mls/hr Levothyroxine Sodium (Synthroid -) 112 mcg PO DAILY@0700 [facility] Last Admin: 03/23/18 06:16 Dose: 112 mcg Ondansetron HCl (Zofran Injection) 8 mg IVPB Q8H PRN PRN Reason: NAUSEA Pantoprazole Sodium (Protonix -) 40 mg PO DAILY [facility] Last Admin: 03/23/18 09:40 Dose: 40 mg Simethicone (Mylicon -) 80 mg PO Q4H PRN PRN Reason: GAS - Objective Vital Signs: Vital Signs Temperature 98.7 F 03/23/18 08:45 Pulse Rate 61 03/23/18 08:45 Respiratory Rate 18 03/23/18 08:45 Blood Pressure 112/75 03/23/18 08:45 O2 Sat by Pulse Oximetry (%) 96 03/23/18 09:00 Constitutional: Yes: No Distress, Calm Neck: Yes: Supple Cardiovascular: Yes: S1, S2 Respiratory: Yes: Regular, CTA Bilaterally Gastrointestinal: Yes: Normal Bowel Sounds, Soft Musculoskeletal: Yes: WNL Neurological: Yes: Alert Psychiatric: Yes: Alert Labs: CBC, BMP 03/22/18 06:30 03/22/18 06:30 INR, PTT INR 1.44 (0.83-1.09) H 03/17/18 05:30 Assessment/Plan Problem List - Problems (1) Neoplasm of sigmoid colon Code(s): D49.0 - NEOPLASM OF UNSPECIFIED BEHAVIOR OF DIGESTIVE SYSTEM (2) Sigmoid thickening Code(s): K63.9 - DISEASE OF INTESTINE, UNSPECIFIED (3) Abdominal pain Code(s): R10.9 - UNSPECIFIED ABDOMINAL PAIN Qualifiers: Abdominal location: left lower quadrant Qualified Code(s): R10.32 - Left lower quadrant pain (4) Abnormal colonoscopy Code(s): R93.3 - ABNORMAL FINDINGS ON DX IMAGING OF PRT DIGESTIVE TRACT fever abd distension DVT ? pe ureteral tear left s/p ext nephrostomy plan continue current mgmt rest as per the team final plan awaited nutrition care of the tubes
--- NOTE | 2018-03-23 15:50 | PN ---
Progress Note, Physician - Current Medication List Current Medications: Active Medications Acetaminophen (Tylenol -) 650 mg PO Q4H PRN PRN Reason: FEVER Last Admin: 03/20/18 13:44 Dose: 650 mg Amino Acids (Prosource No Carb Liquid Pkt) 30 ml PO BID@0800,1730 [facility] Last Admin: 03/23/18 08:39 Dose: 30 ml Apixaban (Eliquis -) 5 mg PO BID [facility] Last Admin: 03/23/18 09:40 Dose: 5 mg Benzocaine/Menthol (Cepacol Lozenge -) 1 each MM DAILY PRN PRN Reason: SORE THROAT Sodium Chloride (Normal Saline -) 1,000 mls @ 100 mls/hr IV ASDIR [facility] Last Admin: 03/23/18 09:40 Dose: 100 mls/hr Levothyroxine Sodium (Synthroid -) 112 mcg PO DAILY@0700 [facility] Last Admin: 03/23/18 06:16 Dose: 112 mcg Ondansetron HCl (Zofran Injection) 8 mg IVPB Q8H PRN PRN Reason: NAUSEA Pantoprazole Sodium (Protonix -) 40 mg PO DAILY [facility] Last Admin: 03/23/18 09:40 Dose: 40 mg Simethicone (Mylicon -) 80 mg PO Q4H PRN PRN Reason: GAS - Objective Vital Signs: Vital Signs Temperature 98.7 F 03/23/18 08:45 Pulse Rate 61 03/23/18 08:45 Respiratory Rate 18 03/23/18 08:45 Blood Pressure 112/75 03/23/18 08:45 O2 Sat by Pulse Oximetry (%) 96 03/23/18 09:00 Labs: CBC, BMP 03/22/18 06:30 03/22/18 06:30 INR, PTT INR 1.44 (0.83-1.09) H 03/17/18 05:30 Problem List - Problems (1) Neoplasm of sigmoid colon Code(s): D49.0 - NEOPLASM OF UNSPECIFIED BEHAVIOR OF DIGESTIVE SYSTEM (2) Sigmoid thickening Code(s): K63.9 - DISEASE OF INTESTINE, UNSPECIFIED (3) Abdominal pain Code(s): R10.9 - UNSPECIFIED ABDOMINAL PAIN Qualifiers: Abdominal location: left lower quadrant Qualified Code(s): R10.32 - Left lower quadrant pain (4) Abnormal colonoscopy Code(s): R93.3 - ABNORMAL FINDINGS ON DX IMAGING OF PRT DIGESTIVE TRACT
[2018-03-23 19:55] VITALS: BP 120/74; PULSE 77; TEMP 98.1
[2018-03-23 23:42] VITALS: BMI 28.0
--- NOTE | 2018-04-06 20:14 | OP ---
DATE OF OPERATION: 02/21/2018 PREOPERATIVE DIAGNOSIS: Acute abdomen, feculent peritonitis. POSTOPERATIVE DIAGNOSIS: Perforated diverticulitis rectal stump. PROCEDURE: Exploratory laparotomy, abdominal washout, completion of left hemicolectomy, end colostomy of transverse colon. ATTENDING SURGEON: Horacio Ventura MD CALL CENTER OPERATOR: Cheo Singh MD ANESTHESIOLOGIST: Justine Agrawal MD ANESTHESIA: General. ESTIMATED BLOOD LOSS: 250 mL DRAINS: 350 mL of feculent peritonitis was aspirated from the abdomen upon opening. BLOOD VOLUME REPLACED: 350 mL of packed red cells. INTRAVENOUS FLUIDS: Replaced 5000 mL BRIEF FINDINGS: Patient had feculent peritonitis limited to the left abdomen, contamination by the omentum. Stapled anastomosis was intact. There was a perforated diverticulum distal on the rectal stump from the previous sigmoid colectomy. Patient was irrigated with approximately 6 L of sterile irrigation fluid and an end colostomy was fashioned from the transverse colon and brought to the left upper quadrant. All counts were correct postoperatively. BRIEF INDICATIONS: Patient is a 57-year-old male presenting on postoperative day 7 after a sigmoid colectomy, having developed peritonitis and significant free air on imaging. He was counseled regarding the risks, benefits, and alternatives to surgical re-exploration. He signed informed consent and was taken for the procedure after being explained the risks, benefits, and alternatives to this procedure. DESCRIPTION OF PROCEDURE: Patient was brought to the operating room and was placed in the supine position on the operating table. The lower extremities had SCDs placed to compression. He was receiving intravenous antibiotics. He was induced under general anesthesia and endotracheally intubated, at which point we proceeded first with re-approach through the previous midline laparotomy incision. After sterile prep, drape, and a formal timeout identifying the operative procedure, the previous roc were removed using a clamp. The skin was then opened and the midline was reexplored, removing the previous abdominal closure from 7 days prior with scissors and a pick-up. We then, upon entering the abdomen, noticed immediate feculent peritonitis, a gush of air, as well as feculent drainage which was suctioned from the abdomen. The drainage was followed down to the left lower quadrant. There appeared to be a significant amount of inflammation and feculent peritonitis, which was cleared. The site was irrigated with approximately 2 L to allow for visualization. We traced down the dissection. There was a significant amount of infarcted omentum, which was also debrided using a LigaSure device. Upon reexamining the previous anastomosis, it appeared to be grossly intact without signs of leak. However, on the distal aspect of the sigmoid and upper rectal stump, there appeared to be thickening and an area of diverticulitis, which had now a aditya perforation. This area was then stapled across and then dissected in a retrograde fashion towards the remainder of the left colon. Care was taken to stay adjacent to the colon wall, high on the mesentery as not to cause any undue trauma given the significant amount of feculent contamination of the abdomen. There was significant edema adjacent to the bowel wall. It was taken with a LigaSure device. This was dissected back up towards the previous white line, which had been taken down during the first procedure to allow for anastomosis. The remainder of the left colon to the distal transverse colon was dissected in this fashion. The specimen was then sent of the left colon for final pathologic diagnosis. Once removed from the abdomen, the stapled anastomosis was identified at the distal aspect of the specimen. We then turned our attention back to the transverse colon, which was remaining and a spot on the abdomen was selected for colostomy. The skin was pinched with a Yandy clamp and then a core of skin and subcutaneous fat was taken down to the anterior fascia, which was opened in a cruciate fashion. Two fingers were passed to facilitate passage of the colon externally. With this done and complete, the abdomen was irrigated with an additional 3 L of sterile irrigation fluid. The remainder of the abdomen was inspected systematically and revealed no additional pathology. The abdomen was reclosed in the midline from superior and inferior poles using number 1 looped PDS material and tied just above the umbilicus. Skin was then cleaned with the transverse colon exposed and then it was opened and the staple line was removed. After removing the staple line from the transected transverse colon, the colostomy was matured using [place] fashion at the cardinal points at 12, 3, 9 and 6 using a [place] technique and then interrupted 2-0 Vicryl in between to secure it to the skin. An ostomy appliance 57 mm was cut to shape and then applied. The patient was awoken from general anesthesia having tolerated the procedure well. The midline was dressed sterilely. All counts were correct prior to closure of the abdomen. He was stable throughout the procedure. He returned to recovery in stable condition with the plan to return to SICU. MD BUCK Goldman/[id number]
== END 2018-03-23 20:01 | DRG 221 ==
LOC: JER 09:16 → JERBED 12:27 → J6S 02-14 08:34 → JICU 02-20 15:09 → J4S 02-22 13:15 → J5S 02-23 16:45 → JICU 03-01 19:32 → J4W 03-09 16:28 → J6S 03-19 10:59
PROVIDERS: ADMIT Family Medicine; ATTEND Hospitalist
PROC: 0D1N0Z4 Bypass Sigmoid Colon to Cutaneous, Open Approach (ICD-10-PCS; principal; 2018-02-14 11:00)
PROC: 0DBN0ZX Excision of Sigmoid Colon, Open Approach, Diagnostic (ICD-10-PCS; 2018-02-14 11:00)
PROC: 0W9G30Z Drainage of Peritoneal Cavity with Drainage Device, Percutaneous Approach (ICD-10-PCS; 2018-02-20)
PROC: 0DTL0ZZ Resection of Transverse Colon, Open Approach (ICD-10-PCS; 2018-02-21)
PROC: 30233N1 Transfusion of Nonautologous Red Blood Cells into Peripheral Vein, Percutaneous Approach (ICD-10-PCS; 2018-02-21)
PROC: 0T9030Z Drainage of Right Kidney with Drainage Device, Percutaneous Approach (ICD-10-PCS; 2018-02-27)
PROC: 0T9430Z Drainage of Left Kidney Pelvis with Drainage Device, Percutaneous Approach (ICD-10-PCS; 2018-03-01)
PROC: 05HM33Z Insertion of Infusion Device into Right Internal Jugular Vein, Percutaneous Approach (ICD-10-PCS; 2018-03-01)
PROC: B543ZZA Ultrasonography of Right Jugular Veins, Guidance (ICD-10-PCS; 2018-03-01)
PROC: 0T778DZ Dilation of Left Ureter with Intraluminal Device, Via Natural or Artificial Opening Endoscopic (ICD-10-PCS; 2018-03-07)
PROC: 0T25X0Z Change Drainage Device in Kidney, External Approach (ICD-10-PCS; 2018-03-21)
DX: C18.2 Malignant neoplasm of ascending colon (principal); R00.0 Tachycardia, unspecified; E03.9 Hypothyroidism, unspecified; R10.32 Left lower quadrant pain; E66.9 Obesity, unspecified; Z68.32 Body mass index [BMI] 32.0-32.9, adult; D50.9 Iron deficiency anemia, unspecified; N40.0 Benign prostatic hyperplasia without lower urinary tract symptoms; T81.44XA Sepsis following a procedure, initial encounter; R39.0 Extravasation of urine; I82.4Z1 Acute embolism and thrombosis of unspecified deep veins of right distal lower extremity; K63.0 Abscess of intestine; B96.20 Unspecified Escherichia coli [E. coli] as the cause of diseases classified elsewhere; I48.0 Paroxysmal atrial fibrillation; K65.9 Peritonitis, unspecified; J96.01 Acute respiratory failure with hypoxia; K65.1 Peritoneal abscess; E83.51 Hypocalcemia; I95.9 Hypotension, unspecified; I24.8 Other forms of acute ischemic heart disease; D72.829 Elevated white blood cell count, unspecified; A41.9 Sepsis, unspecified organism; R65.21 Severe sepsis with septic shock
CPT/HCPCS: 36415; 36430; 36600; 49406; 50432; 50435; 71045-TC-FY; 71260-TC; 71275-TC; 74019-TC-FY; 74177-TC; 74178-TC; 76000-TC-FY; 76098-TC-FY; 76380-TC; 76998-TC; 80048; 80053; 81003; 81015; 82150; 82378; 82550; 82553; 82565; 82570; 82607; 82728; 82803; 82945; 82962; 83540; 83550; 83605; 83615; 83735; 83986; 84100; 84157; 84443; 84484; 85025; 85027; 85610; 85730; 86850; 86900; 86901; 86922; 87040; 87070; 87075; 87077; 87086; 87102; 87116; 87186; 87205; 87206; 87210; 87899; 88108; 88300-TC; 88305-TC; 88307-TC; 88309-TC; 89051; 93005; 93010; 93306-TC; 93970-TC; 94760; 97116-GP; 97161-GP; 99285-25; A4358; C1729; C1769; C1887; J0131; J1644; J7030; P9038; P9058; Q9967